=== PATIENT | female | born 1965 | race Caucasian/White ===

== ENCOUNTER 2023-06-01 14:05 | Outpatient (OUT) | payer OTHER, SELFPAY ==
--- NOTE | 2023-06-01 14:13 | MM_ITS ---
Patient: TRENT BO Exam Date: 06/01/2023 : 1965 Gender:F Ordering : DR CHELO PRECIADO M.D. Admission #: [id number] Family : Order #: [id number] CLICK HERE TO VIEW EXAM RADIOLOGY REPORT PROCEDURE: MM TOMOSYNTHESIS SCREENING BI COMPARISON: MG MAMM DX 3D RT CAD, 12/09/2020. MG MAMM SCREEN 3D ANNA CAD, 05/31/2022. INDICATIONS: Screening Calculator Name NCI Breast Cancer Risk Assessment Tool 5 Year Breast Cancer Risk 1.50% Lifetime Breast Cancer Risk 8.50% Personal Breast Cancer No Personal Ovarian Cancer No Treatments None Family Cancers Grandmother-maternal with leukemia cancer at age ~80. LOCATION: [facility] BREAST COMPOSITION: Heterogeneously dense,which may obscure small masses. FINDINGS: DIAGNOSTIC CATEGORY 2--BENIGN FINDING. NO CHANGE FROM COMPARISON. Scattered benign-appearing nodules are present. Scattered benign-appearing calcifications are present. RIGHT BREAST: No significant suspicious finding. LEFT BREAST: No significant suspicious finding. RECOMMENDATIONS: ROUTINE MAMMOGRAM AND CLINICAL EVALUATION IN 12 MONTHS. PLEASE NOTE: A NORMAL MAMMOGRAM DOES NOT EXCLUDE THE POSSIBILITY OF BREAST CANCER. A CLINICALLY SUSPICIOUS PALPABLE LUMP SHOULD BE BIOPSIED. Dictated by: Aguila Perez MD on 06/02/2023 at 08:04 Approved by: Aguila Perez MD on 06/02/2023 at 08:06
== END 2023-06-01 14:06 | disposition home or self-care (01) ==
PROVIDERS: PCP Family Medicine; Visit Provider Family Medicine
DX: Z12.31 Encounter for screening mammogram for malignant neoplasm of breast (principal); Z80.6 Family history of leukemia
CPT/HCPCS: 77063; 77067

== ENCOUNTER 2023-10-23 15:21 | Outpatient (OUT) | payer OTHER, SELFPAY ==
--- NOTE | 2023-10-23 | ECG_ITS ---
[facility] Test Date: 2023-10-23 Pat Name: TRENT BO Department: Room: - Gender: Female [employer] Person: : 1965 Requested By: CHELO PRECIADO Order Number: [id number] Reading MD: MIRYAM GUTHRIE Measurements Intervals [place] Rate: 51 P: 64 MO: 181 QRS: 65 QRSD: 95 T: 50 QT: 424 QTc: 391 Interpretive Statements SINUS BRADYCARDIA No previous ECG available for comparison Electronically Signed On 10-24-2023 6:41:12 EDT by MIRYAM GUTHRIE
[2023-10-23 16:42] LABS: Anion Gap 10.2; BUN Creatinine Ratio 21.2; Calcium 9.4 mg/dL (8.5-10.1); Carbon Dioxide 29.6 mmol/L (21.0-32.0); Chloride 106 mmol/L (98-107); Estimated GFR (African America >60 (>=60); Estimated GFR (Non-African Ame >60 (>=60); Glucose 81 mg/dL (74-106); Potassium 3.8 mmol/L (3.5-5.1); Sodium 142 mmol/L (136-145); Troponin I High Sensitivity <4.0 pg/mL (4.0-51.3)
== END 2023-10-23 15:22 | disposition home or self-care (01) ==
LOC: CARD 15:24
PROVIDERS: PCP Family Medicine; Visit Provider Family Medicine
DX: R10.13 Epigastric pain (principal); I10 Essential (primary) hypertension
CPT/HCPCS: 36415; 80048; 84484; 93005

== ENCOUNTER 2024-01-25 05:48 | Observation (INO) | payer OTHER, SELFPAY ==
[2024-01-25] VITALS (13 sets, daily range): BP systolic 110–152; BP diastolic 67–90; PULSE 51–73; TEMP 36.3–36.9; O2SAT 90–100; BMI 34.9; BMI 34.5
--- NOTE | 2024-01-25 | OP_ITS ---
OPERATION DATE: 01/25/2024 PREOPERATIVE DIAGNOSIS: 1. Left ureteral calculus with hydronephrosis. 2. UTI. POSTOPERATIVE DIAGNOSIS: 1. Left ureteral calculus with hydronephrosis. 2. UTI. PROCEDURE: 1. Cystoscopy. 2. Left retrograde pyelogram. 3. Left ureteroscopy with holmium laser ablation left distal ureteral calculus. 4. Ureteroscopic stone basket extraction. 5. Placement left double J stent under fluoroscopic guidance. SURGEON: Jan Alonzo M.D. COMPLICATIONS: None. ANESTHESIA: Dr. Spicer with a general LMA. INDICATIONS: Mrs. King is a 58-year-old female with a positive prior history of kidney stones, who presents with a left distal ureteral stone measuring about 7 mm, causing hydronephrosis, associated with a UTI. Recommendation made for operative intervention secondary to the combination of UTI and obstruction, as well as the stone size. She has been trying to pass this stone probably for the last week or so, based on symptomatology. She already received intravenous antibiotics in the ER. She understands the risks, benefits and details of this procedure, including the risk of bleeding, infection, need for additional procedural intervention, stent pain an irritation, heart and lung problems under anesthesia. Despite these risks, she wishes to proceed. she did have sequential compression devices in place and functional to the bilateral lower extremities throughout the case. PROCEDURE: The patient was brought back to the operating room and a time out was performed. All were in agreement with the operative plan, and she was identified appropriately. After the successful induction of general anesthesia by Dr. Spicer, she was placed in the modified dorsolithotomy position, prepped in the usual fashion with Betadine solution and draped appropriately. 2% Xylocaine jelly was placed per urethra and a well lubricated 22-Kiswahili cystourethroscope with 30 degree lens was then passed into the bladder. Choudhury endoscopy revealed no tumors, no stones, no diverticula. She does have a moderate cystocele. The orifices are normal and orthotopic. Left retrograde pyelogram was subsequently performed, utilizing a 6-Kiswahili open ended ureteral catheter, and this reveals a filling defect overlying the sacral aspect of the ureter. No obvious renal calculi identified. Left retrograde pyelogram demonstrates some dilatation of the collecting system. I did not push this with any pressure, so as not to push any infected urine proximally. Once the stone was identified, I decided to proceed immediately with ureteroscopy. This was accomplished, and a 0.25 Guidewire was passed up beyond the stone and into the kidney. Scope was removed and then replaced back up the ureter with the safety wire left in place. The stone was subsequently encountered and felt to be simply too large to simply engage. Holmium laser was subsequently utilized, with the 200 micron fiber at up to 10 torres. The stone was ablated into multiple pieces, each of which was basketed free and eventually sent to pathologist for evaluation. Ureteroscopy was carried up to the mid ureter. Due to the impacted stone site and the possible associated UTI, I felt that an indwelling stent was indicated. The safety wire was left in place. The ureteroscope was removed, and the cystoscope was backloaded over the wire. A 4.9-Kiswahili Dornier double J ureteral stent was then passed into the kidney. Wire removed and there was good curl of the stent within the kidney and the urinary bladder. Bladder empties, scope removed and the procedure was terminated. She tolerates it well and she is transferred to PACU in satisfactory condition, stable vital signs. Plan will be for transfer to the floor for postoperative management. Hopefully, she can be discharged home later this evening or tomorrow, with oral antibiotic coverage. The indwelling stent can be removed within the next 2-3 weeks or so. Discussed all this with her post-op, and he is in agreement with the plan. LASHAUN
--- OUTSIDE RECORDS SUMMARY | 2024-01-25 06:05 | XMS_ITS | CCD ---
Author Organization [facility] Care Team Providers Care Director Facilities Maintenance Name Role Phone HAMLET, DR ANAHI Reich Admitting Unavailable WEST, DR ANAHI Reich Attending Unavailable BALL, DR WITT Primary Care Unavailable WEST, DR ANAHI Reich Consulting Unavailable WEST, DR ANAHI Reich Admmagali Unavailable WEST, DR ANAHI Reich Attending Unavailable BALL, DR WITT Primary Care Unavailable WEST, DR ANAHI Reich Consulting Unavailable WEST, DR ANAHI Reich Admmagali Unavailable WEST, DR ANAHI Reich Attending Unavailable BALL, DR WITT Primary Care Unavailable WEST, DR ANAHI Reich Admmagali Unavailable WEST, DR ANAHI Reich Attending Unavailable BALL, DR WITT Primary Care Unavailable WEST, DR ANAHI Reich Consulting Unavailable WEST, DR ANAHI Reich Admitting Unavailable WEST, DR ANAHI Reich Attending Unavailable BALL, DR WITT Primary Care Unavailable WEST, DR ANAHI Reich Consulting Unavailable WEST, DR ANAHI Reich Admmagali Unavailable WEST, DR ANAHI Reich Attending Unavailable BALL, DR WITT Primary Care Unavailable WEST, DR ANAHI Reich Consulting Unavailable ZIEBJAKE, DR JAYY Santos Consulting Unavailable BAKER, DR AYSE Esposito Admitting Unavailable BAKER, DR AYSE Esposito Attending Unavailable BALL, DR WITT Primary Care Unavailable WEST, DR ANAHI Reich Consulting Unavailable BAKER, DR AYSE Esposito Consulting Unavailable WEST, DR ANAHI Reich Admmagali Unavailable WEST, DR ANAHI Reich Attending Unavailable BALL, DR WITT Primary Care Unavailable WEST, DR ANAHI Reich Admitting Unavailable WEST, DR ANAHI Reich Attending Unavailable BALL, DR WITT Primary Care Unavailable WEST, DR ANAHI Reich Admitting Unavailable WEST, DR ANAHI Reich Attending Unavailable BALL, DR WITT Primary Care Unavailable WEST, DR ANAHI Reich Admitting Unavailable WEST, DR ANAHI Reich Attending Unavailable BALL, DR WITT Primary Care Unavailable WEST, DR ANAHI Reich Consulting Unavailable ZIEBJAKE, DR JAYY Santos Consulting Unavailable WEST, DR ANAHI Reich Admmagali Unavailable WEST, DR ANAHI Reich Attending Unavailable BALL, DR WITT Primary Care Unavailable WEST, DR ANAHI Reich Consulting Unavailable WEST, DR ANAHI Reich Admitting Unavailable WEST, DR ANAHI Reich Attending Unavailable BALL, DR WITT Primary Care Unavailable WEST, DR ANAHI Reich Consulting Unavailable WEST, DR ANAHI Reich Admitting Unavailable WEST, DR ANAHI Reich Attending Unavailable BALL, DR WITT Primary Care Unavailable WEST, DR ANAHI Reich Consulting Unavailable WEST, DR ANAHI Reich Admitting Unavailable WEST, DR ANAHI Reich Attending Unavailable BALL, DR WITT Primary Care Unavailable WEST, DR ANAHI Reich Consulting Unavailable ZIEBER, DR JAYY Santos Consulting Unavailable WEST, DR ANAHI Reich Admitting Unavailable WEST, DR ANAHI Reich Attending Unavailable BALL, DR WITT Primary Care Unavailable WEST, DR ANAHI Reich Consulting Unavailable BAKER, DR AYSE Esposito Admitting Unavailable BAKER, DR AYSE Esposito Attending Unavailable BALL, DR WITT Primary Care Unavailable ZIEBER, DR JAYY Santos Consulting Unavailable BAKER, DR AYSE Esposito Consulting Unavailable WEST, DR ANAHI Reich Admitting Unavailable WEST, DR ANAHI Reich Attending Unavailable BALL, DR WITT Primary Care Unavailable WEST, DR ANAHI Reich Consulting Unavailable BALL, DR WITT Admitting Unavailable BALL, DR WITT Attending Unavailable BALL, DR WITT Primary Care Unavailable BALL, DR WITT Consulting Unavailable ZIEBER, DR JAYY Santos Consulting Unavailable WEST, DR ANAHI Reich Admitting Unavailable WEST, DR ANAHI Reich Attending Unavailable BALL, DR WITT Primary Care Unavailable WEST, DR ANAHI Reich Consulting Unavailable ZIEBER, DR JAYY Santos Consulting Unavailable WEST, DR ANAHI Reich Admmagali Unavailable WEST, DR ANAHI Reich Attending Unavailable BALL, DR WITT Primary Care Unavailable WEST, DR ANAHI Reich Consulting Unavailable BakerAyse Attending Unavailable Baker, Ayse Esposito Primary Care Unavailable Baker, Ayse Esposito Admitting Unavailable MD Ayse Baker Primary Care Provider MD Ayse Baker Attending Provider [phone] Allergies Allergy Classification Reported Allergen(s) Allergy Type Date of Onset Reaction(s) Facility (2 sources) Sulfamethoxazole / Trimethoprim Drug Allergy [facility] Repository (2 sources) Sulfamethoxazole Drug Allergy [address] [place] [address] Repository (2 sources) Sulfonamides (Antibiotic) Drug allergy (disorder) [address] [place] [address] Repository (2 sources) Trimethoprim Drug Allergy [address] [place] [address] Repository Medications Current Medications Medication Drug Class(es) Dates Sig (Normalized) Sig (Original) fluticasone furoate 0.0275 mg/actuat metered dose nasal spray (1 source) Corticosteroid Start: 10-18-2023 take 2 spray(s) nasal route once daily, then take 1 spray(s) nasal route once daily Fluticasone Furoate (Flonase Sensimist) 27.5 mcg/actuation spray,suspension Active 2 SPRAY INTRANASAL Daily October 18, 2023 1:00am [employer] sprays (1 spray in each nostril) Nasally Once a day; Note: Source Status: Start; Refills: 1; Provider: Samuel Esposito losartan potassium 50 mg oral tablet (3 sources) Angiotensin 2 Receptor Jose Start: 11-16-2023 take 50 mg by mouth once daily Losartan Active 50 MG PO daily November 16, 2023 12:00am Start: 10-23-2023 End: 11-16-2023 take 25 mg by mouth once daily Losartan Discontinued 2 5 MG PO Daily November 14, 2023 7:40pm November 16, 2023 3:11pm Problems Active Problems Problem Classification Problem Date Documented Da te Episodic/Chronic Abdominal pain (3 sources) Epigastric pain; Translations: [Epigastric pain] Onset: 4 10-23-2023 Episodic Essential hypertension (3 sources) Essential (primary) hypertension; Translations: [Hypertensive disorder] Onset: 4 10-30-2023 Chronic Other screening for suspected conditions (not mental disorders or infectious disease) (4 sources) Encounter for screening mammogram for malignant neoplasm of breast; Translations: [ENC SCR MAMMO MALIG NEOPLASM BREAST] Onset: 2 Episodic Phlebitis; thrombophlebitis and thromboembolism (13 sources) Phlebitis and thrombophlebitis of superficial vessels of right lower extremity; Translations: [Phlebitis and thrombophlebitis of superficial vessels of left lower extremity] Onset: 2 Episodic Residual codes; unclassified (1 source) Family history of leukemia; Translations: [FAMILY HISTORY OF LEUKEMIA] Onset: 2 Episodic Varicose veins of lower extremity (4 sources) Varicose veins of bilateral lower extremities with pain; Translations: [VARICOSE VNS ANNA LOW EXTREM W/PAIN] Onset: 2 Episodic Past or Other Problems Problem Classification Problem Date Documented Da te Episodic/Chronic Other connective tissue disease (4 sources) Other specified soft tissue disorders; Translations: [OTHER SPEC SOFT TISSUE DISORDERS] Onset: 12-13-2021 Episodic Results Test Name Value Interpretation Reference Range Facility Estimated glomerular filtrat ion rate (GFR) non- Americanon 10-23-2023 GFR/1.73 sq M.predicted among non-blacks MDRD (S/P/Bld) [Vol rate/Area] mL/min/{1.73_m2} >=60 [facility] Laboratory - Chemistry and C hemistry - challengeon 10-23-2023 Calcium [Mass/Vol] 9.4 mg/dL 8.5-10.1 [facility] Chloride [Moles/Vol] 106 mmol/L 98-[address] [facility] CO2 [Moles/Vol] 29.6 mmol/L 21.0-32.0 [facility] Creatinine [Mass/Vol] 0.80 mg/dL 0.55-1.02 [facility] GFR/1.73 sq M.predicted MDRD (S/P/Bld) [Vol rate/Area] mL/min/{1.73_m2} >=60 [facility] Glucose [Mass/Vol] 81 mg/dL 74-106 [facility] Potassium [Moles/Vol] 3.8 mmol/L 3.5-5.1 [facility] Sodium [Moles/Vol] 142 mmol/L 136-145 [facility] Urea nitrogen [Mass/Vol] 17.0 mg/dL 7.0-18.0 [facility] Urea nitrogen/Creatinine [Mass ratio] 21.2 mg/mg [facility] No Panel Informationon 10-22 Troponin I High Sensitivity <4.0 pg/mL 4.0-51.3 [facility] Comment on above: CUT-OFF POINTS HAVE BEEN ESTABLISHED BASED ON THE FOURTHUNIVERSAL DEFINITION OF MYOCARDIAL INFARCTION. THE UPPERREFERENCE LIMIT (URL) OF TROPONIN, DEFINED THE 99THPERCENTILE OF cTnI DISTRIBUTION IN A REFERENCE POPULATION,HAS BEEN CONFIRMED THE DECISION THRESHOLD FOR MIDIAGNOSIS.99TH PERCENTILE = 51.4 PG/MLNOTE: HIGH-SENSITIVITY TROPONIN ASSAY IS NOT INTENDED TO BEUSED IN ISOLATION BUT SHOULD BE INTERPRETED IN CONJUNCTIONWITH OTHER DIAGNOSTIC AND CLINICAL INFORMATION. Serum or plasma anion gap de terminationon 10-23-2023 Anion gap [Moles/Vol] 10.2 mmol/L [facility] MG MAMM SCREEN 3D ANNA CADon 05-31-2022 MG MAMM SCREEN 3D ANNA CAD Patient: LIZ BO. Exam Date: 05/31/2022 : 1965 Gender:F Ordering : DR MIRYAM GUTHRIE D.O. Admission #: [id number] Family : Order #: [id number] CLICK HERE TO VIEW EXAM RADIOLOGY REPORT PROCEDURE: MAMMOGRAM SCREENING 3D BILATERAL CAD COMPARISON: MG MAMM DX 3D RT CAD, 12/09/2020. MG MAMM SCREEN 3D ANNA CAD, 11/23/2020. INDICATIONS: Screening mammography Calculator Name NCI Breast Cancer Risk Assessment Tool 5 Year Breast Cancer Risk 1.40% Lifetime Breast Cancer Risk 8.70% Personal Breast Cancer No Personal Ovarian Cancer No Treatments None Family Cancers Grandmother-maternal with leukemia cancer at age 80. LOCATION: [facility] BREAST COMPOSITION: Heterogeneously dense,which may obscure small masses. FINDINGS: DIAGNOSTIC CATEGORY 2--BENIGN FINDING: RIGHT BREAST: No significant suspicious finding. No significant change has occurred. LEFT BREAST: No significant suspicious finding. Scattered benign-appearing calcifications are present. No significant change has occurred. RECOMMENDATIONS: ROUTINE MAMMOGRAM AND CLINICAL EVALUATION IN 12 MONTHS. PLEASE NOTE: A NORMAL MAMMOGRAM DOES NOT EXCLUDE THE POSSIBILITY OF BREAST CANCER. A CLINICALLY SUSPICIOUS PALPABLE LUMP SHOULD BE BIOPSIED. Dictated by: aJyy Bell M.D. on 05/31/2022 at 15:57 Approved by: Jayy Bell M.D. on 05/31/2022 at 16:00 Normal [facility] VC INJ SCL ROBERT ASSISTANT FOOD SERVICE MANAGER VEINSon 1 VC INJ SCL ROBERT ASSISTANT FOOD SERVICE MANAGER VEINS Patient: LIZ BO Exam Date: 05/23/2022 : 1965 Gender:F Ordering : DR ANAHI MCNULTY M.D. Admission #: [id number] Family : Order #: [id number] CLICK HERE TO VIEW EXAM RADIOLOGY REPORT PROCEDURE: VEIN CENTER INJECTION SCLEROSING SOLUTION MULTIPLE VEINS SAME COMPARISON: VC INJ SCL ROBERT ASSISTANT FOOD SERVICE MANAGER VEINS, 05/18/2022. INDICATIONS: Pain co-occurrent and due to varicose veins of bilateral legs I83.813 PROCEDURE NOTE: The risks and benefits of the procedure were explained at length to the patient and informed written consent was obtained. Elpidio Nesbitt was present and assisted. The procedure was performed under sterile technique. The patient's leg was wrapped with Coban and postprocedural verbal and written instructions provided. SCLEROSANT: 4 cc, 0.5% polidocanol VEIN(S) INJECTED: 18 veins in the right leg VISUALIZATION: Ultrasound was not used to visualize the sclerosant ANESTHESIA Supercooled air COMPLICATIONS: None CONCLUSION: 1. Technically successful sclerotherapy as described Dictated by: Anahi Mcnulty MD on 05/23/2022 at 13:35 Approved by: Anahi Mcnulty MD on 05/23/2022 at 13:35 Normal [facility] VC INJ SCL ROBERT ASSISTANT FOOD SERVICE MANAGER VEINSon 1 VC INJ SCL ROBERT ASSISTANT FOOD SERVICE MANAGER VEINS Patient: LIZ BO Exam Date: 05/18/2022 : 1965 Gender:F Ordering : DR ANAHI MCNULTY M.D. Admission #: [id number] Family : Order #: [id number] CLICK HERE TO VIEW EXAM RADIOLOGY REPORT PROCEDURE: VEIN CENTER INJECTION SCLEROSING SOLUTION MULTIPLE VEINS SAME COMPARISON: None. INDICATIONS: Pain co-occurrent and due to varicose veins of bilateral legs I83.813 PROCEDURE NOTE: The risks and benefits of the procedure were explained at length to the patient and informed written consent was obtained. Elpidio Nesbitt was present and assisted. The procedure was performed under sterile technique. The patient's leg was wrapped with Coban and postprocedural verbal and written instructions provided. SCLEROSANT: 4 cc, 0.5% polidocanol VEIN(S) INJECTED: 18 veins in the left leg VISUALIZATION: Ultrasound was not used to visualize the sclerosant ANESTHESIA Supercooled air COMPLICATIONS: None CONCLUSION: 1. Technically successful sclerotherapy as described Dictated by: Anahi Mcnulty MD on 05/18/2022 at 13:10 Approved by: Anahi Mcnulty MD on 05/18/2022 at 13:11 Normal [facility] VC CONSULT FOLLOWUPon 2021 VC CONSULT FOLLOWUP Patient: SPENCER BO Exam Date: 05/13/2022 : 1965 Gender:F Ordering : DR ANAHI MCNULTY M.D. Admission #: [id number] Family : Order #: [id number] CLICK HERE TO VIEW EXAM RADIOLOGY REPORT PROCEDURE: VEIN CENTER CONSULTATION FOLLOWUP VEIN CENTER - OFFICE VISIT FOLLOW UP COMPARISON: VC CONSULT FOLLOWUP, 05/02/2022. VC CONSULT FOLLOWUP, 04/19/2022. PROGRESS NOTES: The patient reports some mild discomfort following micro foam chemical ablation of the right leg. Patient has compression stocking. The patient did not require oral analgesics. The patient has followed our recommendations to walk 20-30 minutes once or twice per day since the procedure. The patient reports marked improvement in bilateral lower extremity presenting symptoms . Physical exam demonstrates scattered areas of bruising and scattered thrombosed varicose veins. No significant varicose veins. Scattered reticular and spider veins in both legs are most significant below the knee. Review of the ultrasound performed the same day demonstrates occlusive thrombus extending throughout the treated vein, see separate report, consistent with a successful ablation. No thrombus extending into or beyond the saphenofemoral junction. The patient expressed a desire to proceed with treatment of bilateral reticular and spider veins with injection sclerotherapy. I discussed with the patient she likely would require 3-4 sessions.. IMPRESSION: 1. Successful ablation of right leg incompetent varicose veins 2. Persistent bilateral reticular and spider veins PLAN: Injection sclerotherapy Nurse notes, history and physical were reviewed and confirmed, see attached forms. The nurse was present throughout the physical exam and consultation Dictated by: Anahi Mcnulty MD on 05/13/2022 at 12:55 Approved by: Anahi Mcnulty MD on 05/13/2022 at 12:57 Normal [facility] VC EXT VENOUS RT LIMITEDon 0 05-13-2022 VC EXT VENOUS RT LIMITED Patient: LIZ BO Exam Date: 05/13/2022 : 1965 Gender:F Ordering : DR ANAHI MCNULTY M.D. Admission #: [id number] Family : Order #: [id number] CLICK HERE TO VIEW EXAM RADIOLOGY REPORT PROCEDURE: VEIN CENTER EXTREMITY VENOUS RIGHT LIMITED COMPARISON: VC EXT VENOUS RT LIMITED, 04/19/2022. VC EXT VENOUS RT LIMITED, 02/25/2022. INDICATIONS: Phlebitis of superficial veins of lower extremity I80.01 TECHNIQUE: Lower extremity sharp scale and Duplex Doppler evaluation of the deep venous system from the inguinal ligament through the calf veins. FINDINGS: REGION: Right lower extremity. THROMBI: Negative for DVT. Varithena induced thrombus visualized at all areas treated including mid/lat calf, dist/med calf, and dist/med thigh. COMPRESSIBILITY: Noncompressibility corresponding to thrombus FLOW: Absent flow corresponding to thrombus *Exam performed in accordance with [facility] practice guidelines- Peripheral venous ultrasound, November 07, 2009. CONCLUSION: Post ablation occlusion of the treated varicose veins. No significant residual incompetent varicose veins are observed Dictated by: Anahi Mcnulty MD on 05/13/2022 at 12:54 Approved by: Anahi Mcnulty MD on 05/13/2022 at 12:55 Normal [facility] VC INJ FOAM SCLERO W US MLTI on 05-09-2022 VC INJ FOAM SCLERO W US MLTI Patient: LIZ BO Exam Date: 05/09/2022 : 1965 Gender:F Ordering : DR ANAHI MCNULTY M.D. Admission #: [id number] Family : Order #: [id number] CLICK HERE TO VIEW EXAM RADIOLOGY REPORT PROCEDURE: VEIN CENTER INJECTION FOAM SCLEROSING SOLUTION WITH ULTRASOUND MULTIPLE VEINS COMPARISON: VC INJ FOAM SCLERO W US MLTI, 04/26/2022. Pre-operative Diagnosis: CEAP class C4 venous insufficiency with pain, tenderness, edema and incompetent right great saphenous vein and branch saphenous tributaries/varicose veins, chronic venous insufficiency right leg secondary to venous incompetence Post-operative Diagnosis: CEAP class C4 venous insufficiency with pain, tenderness, edema and incompetent right great saphenous vein and branch saphenous tributaries/varicose veins, chronic venous insufficiency right leg secondary to venous incompetence Procedure Performed: 1. Ultrasound-guided microfoam chemical ablation with Varithena(r) 2. Intraoperative ultrasound guidance Physician: Anahi Mcnulty M.D. Anesthesia: None Indications for Procedure: 57-year-old female who presents with a 30 year history of lower extremity pain swelling and varicose veins. The patient failed conservative medical therapy including medical compression stockings, exercise and analgesics. Prior procedures include intravenous laser ablation and micro foam chemical ablation Multiple incompetent varicosities of the right leg. Duplex scan showed reflux and enlarged diameters up to 4 mm. The patient underwent informed consent including management options where the complications of infection, bleeding, pain, and skin injury were discussed. Particular attention was spent discussing thrombus extension and deep vein thrombosis as well as the possibility of pulmonary embolus and treatment with oral or injectable blood thinners. Procedure: The patient walked to the procedure room. All applicable staff donned appropriate apparel. A procedure timeout was performed to confirm correct patient, correct extremity, correct procedure, and correct room set-up including presence of all applicable supplies, devices, and drugs. A duplex ultrasound, performed by myself confirmed the location and incompetence of right leg varicose veins and their course marked on the skin together with the dilated tributaries. The extent of treatment of the vein and the associated varicosities was determined through ultrasound mapping. The patient was placed on the operating room table. The limb was prepped. The skin was punctured with a butterfly needle through the skin with the venous access needle and advanced under ultrasound guidance. The target limb was positioned at 45 degrees of elevation in relation to the torso utilizing a foam pad. The Varithena(r) canister was previously activated and the canister was primed and purged as required in the instructions for use. 5 mL aliquot of Varithena(r) was drawn into a sterile syringe. Injection into a 4 mm varicose vein distal medial lower leg/ankle. 4 mL aliquot of Varithena(r) was drawn into a sterile syringe. Injection into a 4 mm varicose vein lateral mid calf 2 mL aliquot of Varithena(r) was drawn into a sterile syringe. Injection into a 3 mm varicose vein medial distal thigh Varithena(r) was slowly administered at 0.5-1.0 cc/second with close observation by ultrasound of its course in the injected veins. A total volume of 11 mL of Varithena(r) was used. During administration of Varithena(r), the patient was asked to dorsiflex the ankle to limit flow of Varithena(r) into perforating veins. Once appropriate spasm had been confirmed in the treated veins, the vascular catheter was removed from the leg and light pressure was applied over the puncture site for hemostasis The common femoral and deep superficial veins were then evaluated for flow and compressibility prior to dressing placement. The lower extremity was kept elevated at 45 degrees above the horizontal and cording material was applied over the saphenous segments and tributaries to allow for eccentric compression over the target vessels including the targeted saphenous vein(s). A multilayer dressing was applied consisting of foam pads, coban and thigh-high 20-30 mm Hg compression elastic support hose were placed on the patient. The leg was lowered only after compression had been applied and the patient was immediately ambulatory. The patient ambulated 10 minutes under supervision and was without apparent concerns at time of release Post-care instructions include advising patient to keep post-treatment bandages in place and dry for 48 hours, avoid extended periods of inactivity, avoid heavy exercise for one week, wear compression stockings on the treated leg continuously for two weeks, to walk daily for 10 minutes over the next month. The patient was instructed to take an anti-inflammatory medicine as needed and (more content not included)... Normal [facility] VC CONSULT FOLLOWUPon 2021 VC CONSULT FOLLOWUP Patient: SPENCER BO Exam Date: 05/02/2022 : 1965 Gender:F Ordering : DR ANAHI MCNULTY M.D. Admission #: [id number] Family : Order #: [id number] CLICK HERE TO VIEW EXAM RADIOLOGY REPORT PROCEDURE: VEIN CENTER CONSULTATION FOLLOWUP VEIN CENTER - OFFICE VISIT FOLLOW UP COMPARISON: VC CONSULT FOLLOWUP, 04/19/2022. PROGRESS NOTES: The patient reports that some persistent tenderness within right leg and occasional twinges posterior to the knee. No left leg complaints. There has been interval reduction in varicosities. The patient has followed our recommendations to walk 20-30 minutes once or twice per day since the procedure. Physical exam demonstrates decrease in varicosities and no evidence of infection. Persistent varicosities are identified along the right leg. Review of the ultrasound performed the same day demonstrates occlusive thrombus extending throughout the treated vein, see separate report, consistent with a successful ablation. No thrombus extending into or beyond the saphenofemoral junction. The patient expressed a desire to proceed with treatment of remaining varicosities of right leg. The patient was informed that treatment was a process and would require approximately 1, possibly 2 more treatments with Varithena followed by sclerotherapy. IMPRESSION: 1. Successful ablation of the treated branch saphenous veins. 2. Persistent incompetent varicose veins and right leg symptoms PLAN: 1. Microfoam chemical ablation of right lower extremity remaining branch saphenous varicosities. 2. Sclerotherapy. Nurse notes, history and physical were reviewed and confirmed, see attached forms. The nurse was present throughout the physical exam and consultation Dictated by: Jayy Bell M.D. on 05/02/2022 at 13:07 Approved by: Jayy Bell M.D. on 05/02/2022 at 13:15 Normal [facility] VC EXT VENOUS LT LIMITEDon 0 05-02-2022 VC EXT VENOUS LT LIMITED Patient: LIZ BO Exam Date: 05/02/2022 : 1965 Gender:F Ordering : DR ANAHI MCNULTY M.D. Admission #: [id number] Family : Order #: [id number] CLICK HERE TO VIEW EXAM RADIOLOGY REPORT PROCEDURE: VEIN CENTER EXTREMITY VENOUS LEFT LIMITED COMPARISON: VC EXT VENOUS LT LIMITED, 03/29/2022. INDICATIONS: Phlebitis of superficial veins of lower extremity I80.02 TECHNIQUE: Lower extremity sharp scale and Duplex Doppler evaluation of the deep venous system from the inguinal ligament through the calf veins. FINDINGS: REGION: Left lower extremity. THROMBI: Negative for DVT. Varithena induced thrombus visualized in all areas treated including dist/med calf and prox/med calf extending into dist/med thigh. COMPRESSIBILITY: Non-compressible segments. FLOW: Areas of no flow. OTHER: CONCLUSION: 1. Successful post ablation occlusion of treated branch saphenous varicosities within the left leg. Dictated by: Jayy Bell M.D. on 05/02/2022 at 13:07 Approved by: Jayy Bell M.D. on 05/02/2022 at 13:07 Normal [facility] VC INJ FOAM SCLERO W US MLTI on 04-26-2022 VC INJ FOAM SCLERO W US MLTI Patient: LIZ BO Exam Date: 04/26/2022 : 1965 Gender:F Ordering : DR ANAHI MCNULTY M.D. Admission #: [id number] Family : Order #: [id number] CLICK HERE TO VIEW EXAM RADIOLOGY REPORT PROCEDURE: VEIN CENTER INJECTION FOAM SCLEROSING SOLUTION WITH ULTRASOUND MULTIPLE VEINS COMPARISON: None. Pre-operative Diagnosis: CEAP class C4 venous insufficiency with pain, tenderness, edema and incompetent great and anterior accessory saphenous veins and associated incompetent tributary/varicose veins, chronic venous insufficiency left leg secondary to venous incompetence Post-operative Diagnosis: CEAP class C4 venous insufficiency with pain, tenderness, edema and incompetent great and anterior accessory saphenous veins and associated incompetent tributary/varicose veins, chronic venous insufficiency left leg secondary to venous incompetence Procedure Performed: 1. Ultrasound-guided microfoam chemical ablation with Varithena(r) 2. Intraoperative ultrasound guidance Physician: Anahi Mcnulty M.D. Anesthesia: None Indications for Procedure: 57-year-old female presents a 30 year history of lower extremity pain swelling and varicose veins. The patient failed conservative medical therapy including medical compression stockings, exercise and analgesics. Prior procedures include intravenous laser ablation. 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 Duplex scan showed reflux and enlarged diameters up to 8 mm. The patient underwent informed consent including management options where the complications of infection, bleeding, pain, and skin injury were discussed. Particular attention was spent discussing thrombus extension and deep vein thrombosis as well as the possibility of pulmonary embolus and treatment with oral or injectable blood thinners. Procedure: The patient walked to the procedure room. All applicable staff donned appropriate apparel. A procedure timeout was performed to confirm correct patient, correct extremity, correct procedure, and correct room set-up including presence of all applicable supplies, devices, and drugs. A duplex ultrasound, performed by myself confirmed the location and incompetence of left leg varicose veins and their course marked on the skin together with the dilated tributaries. The extent of treatment of the vein and the associated varicosities was determined through ultrasound mapping. The patient was placed on the operating room table. The limb was prepped. The skin was punctured with a butterfly needle through the skin with the venous access needle and advanced under ultrasound guidance. The target limb was positioned at 45 degrees of elevation in relation to the torso utilizing a foam pad. The Varithena(r) canister was previously activated and the canister was primed and purged as required in the instructions for use. The following injections were made: 8 mL aliquot of Varithena(r) was drawn into a sterile syringe. Injection into a 5 mm varicose vein distal medial lower leg. Compression was used to occlude a perforating vein which was adjacent. 4 mL aliquot of Varithena(r) was drawn into a sterile syringe. Injection into an 8 mm varicose vein medial proximal lower leg Varithena(r) was slowly administered at 0.5-1.0 cc/second with close observation by ultrasound of its course in the injected veins. A total volume of 12 mL of Varithena(r) was used. During administration of Varithena(r), the patient was asked to dorsiflex the ankle to limit flow of Varithena(r) into perforating veins. Once appropriate spasm had been confirmed in the treated veins, the vascular catheter was removed from the leg and light pressure was applied over the puncture site for hemostasis The common femoral and deep superficial veins were then evaluated for flow and compressibility prior to dressing placement. The lower extremity was kept elevated at 45 degrees above the horizontal and cording material was applied over the saphenous segments and tributaries to allow for eccentric compression over the target vessels including the targeted saphenous vein(s). A multilayer dressing was applied consisting of foam pads, coban and thigh-high 20-30 mm Hg compression elastic support hose were placed on the patient. The leg was lowered only after compression had been applied and the patient was immediately ambulatory. The patient ambulated 10 minutes under supervision and was without apparent concerns at time of release Post-care instructions include advising patient to keep post-treatment bandages in place and dry for 48 hours, avoid extended periods of inactivity, avoid heavy exercise for one week, wear compression stockings on the treated leg continuously for two weeks, to walk daily for 10 minutes over the next month. The patient was instructed to take an anti-inflammatory medicine as needed and to follow up for color duplex scan of the GSV, (more content not included)... Normal [facility] VC CONSULT FOLLOWUPon 2021 VC CONSULT FOLLOWUP Patient: SPENCER BO Exam Date: 04/19/2022 : 1965 Gender:F Ordering : DR ANAHI MCNULTY M.D. Admission #: [id number] Family : Order #: [id number] CLICK HERE TO VIEW EXAM RADIOLOGY REPORT PROCEDURE: VEIN CENTER CONSULTATION FOLLOWUP VEIN CENTER - OFFICE VISIT FOLLOW UP COMPARISON: VC CONSULT FOLLOWUP, 03/29/2022. VC CONSULT FOLLOWUP, 02/25/2022. PROGRESS NOTES: The patient reports mild discomfort of the right leg following intravenous laser ablation of the great saphenous vein. The patient did not require oral analgesics. The patient did wear her compression stocking as directed. The patient has followed our recommendations to walk 20-30 minutes once or twice per day since the procedure. Physical exam demonstrates no areas of bruising. The great saphenous vein cannot be definitively palpated. No areas of erythema or warmth to suggest cellulitis or thrombophlebitis. No active ulceration Review of the ultrasound performed the same day demonstrates occlusive thrombus extending throughout the treated right great saphenous vein with heat induced thrombus 0.7 cm from the saphenofemoral junction. The patient expressed a desire to proceed with treatment of incompetent bilateral branch saphenous tributary/varicose veins with micro foam chemical ablation. IMPRESSION: 1. Successful ablation of the right great saphenous vein 2. 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 The nurse was present throughout the physical exam and consultation Dictated by: Anahi Mcnulty MD on 04/19/2022 at 13:55 Approved by: Anahi Mcnulty MD on 04/19/2022 at 13:56 Normal [facility] VC EXT VENOUS RT LIMITEDon 0 04-19-2022 VC EXT VENOUS RT LIMITED Patient: LIZ BO Exam Date: 04/19/2022 : 1965 Gender:F Ordering : DR ANAHI MCNULTY M.D. Admission #: [id number] Family : Order #: [id number] CLICK HERE TO VIEW EXAM RADIOLOGY REPORT PROCEDURE: VEIN CENTER EXTREMITY VENOUS RIGHT LIMITED COMPARISON: VC EXT VENOUS RT LIMITED, 02/25/2022. VC EXT VENOUS RT LIMITED, 02/07/2022. INDICATIONS: Phlebitis of superficial veins of lower extremity I80.01 TECHNIQUE: Lower extremity sharp scale and Duplex Doppler evaluation of the deep venous system from the inguinal ligament through the calf veins. FINDINGS: REGION: Right lower extremity. THROMBI: Negative for DVT. Heat induced thrombus visualized arising 0.7cm from SFJ. The heat induced thrombus extends from groin to distal thigh and is patent at proximal calf below the area of insert. COMPRESSIBILITY: Noncompressibility corresponding to thrombus FLOW: Absent flow corresponding to thrombus *Exam performed in accordance with [facility] practice guidelines- Peripheral venous ultrasound, November 07, 2009. CONCLUSION: Post ablation occlusion of the right great saphenous vein with heat induced thrombus 0.7 cm from the saphenofemoral junction Dictated by: Anahi Mcnulty MD on 04/19/2022 at 13:23 Approved by: Anahi Mcnulty MD on 04/19/2022 at 13:24 Normal [facility] VC ENDOVENOUS ABL 1ST V RTon 04-12-2022 VC ENDOVENOUS ABL 1ST V RT Patient: LIZ BO Exam Date: 04/12/2022 : 1965 Gender:F Ordering : DR ANAHI MCNULTY M.D. Admission #: [id number] Family : Order #: [id number] CLICK HERE TO VIEW EXAM RADIOLOGY REPORT PROCEDURE: VEIN CENTER ENDOVENOUS ABLATION FIRST VEIN RIGHT GREAT SAPHENOUS VEIN COMPARISON: VC ENDOVENOUS ABL 1ST V RT, 01/25/2022. INDICATIONS: Pain co-occurrent and due to varicose veins of bilateral legs I83.813 OPERATIVE REPORT: The risks and benefits of the procedure had been previously discussed, and were rediscussed at length. Informed written consent was obtained by and Elpidio Nesbitt assisted. Time out procedure was performed. The right lower extremity was prepared and draped in the usual sterile fashion to allow knee flexion in the sterile field. Duplex ultrasound probe was draped in a sterile cover, sterile transmission gel was used. Venous mapping was performed with the areas of dilation and large tributaries marked. The total length was 27 cm from the entry upper calf to upper thigh. The wire could be advanced to the saphenofemoral junction however the catheter cannot be advanced due to an area of stenosis with significant pain, therefore it was decided to ablate the accessed portion due to venous spasm. The diameter of the greater saphenous vein ranged from 4-7 mm. A 30 gauge needle and 1% buffered lidocaine was used to anesthetize the entry site. A 4 mm incision was made with a scalpel and the saphenous vein was entered percutaneously under direct ultrasound guidance with a micropuncture set, a single stick was successful in gaining access. A micro-guide wire was inserted and the needle removed. A micro-set including a dilator was inserted over the microwire and the needle and dilator were removed. A 0.018 guide wire was inserted through the micro-set and threaded through the saphenous vein to the saphenofemoral junction. The dilator was removed and an introducer sheath was inserted over the wire. The dilator and wire were removed and the 600 micron fiber was introduced and placed and positioned so that it extended beyond the sheath. Final position of the fiber was determined by ultrasound guidance and duplex imaging. Tumescent anesthetic was delivered by ultrasound guidance. 175 cc of fluid was delivered along the entire course of the saphenous vein. The solution consisted of 500 cc of normal saline with 20mL of 1% lidocaine and 10 mL of sodium bicarbonate. A final positioning check was made. The energy source was turned on by means of the foot pedal and the fiber and sheath were withdrawn. The total number of Joules delivered was 98780. The laser was active for 146 seconds under continuous pulse, average laser use of 8 J. Laser start time 1:18 p.m. April 12, 2022. Laser stop time 1:24 p.m. April 12, 2022. A duplex ultrasound revealed compressibility and flow at the saphenofemoral junction immediately after the procedure. Hemostasis at the access site was achieved. The skin incision of the saphenous vein was closed with a 4 x 4. A compression stocking was applied. Postop instructions were given. A follow up appointment was recommended and scheduled. The patient tolerated the procedure well and was discharged in good condition. CONCLUSION: 1. Technically successful endovenous laser ablation of the right great saphenous vein. Dictated by: Anahi Mcnulty MD on 04/12/2022 at 13:26 Approved by: Anahi Mcnulty MD on 04/12/2022 at 13:30 Normal [facility] VC CONSULT FOLLOWUPon 2021 VC CONSULT FOLLOWUP Patient: SPENCER BO. Exam Date: 03/29/2022 : 1965 Gender:F Ordering : DR ANAHI MCNULTY M.D. Admission #: [id number] Family : Order #: [id number] CLICK HERE TO VIEW EXAM RADIOLOGY REPORT PROCEDURE: VEIN CENTER CONSULTATION FOLLOWUP VEIN CENTER - OFFICE VISIT FOLLOW UP COMPARISON: VC CONSULT FOLLOWUP, 02/25/2022. PROGRESS NOTES: The patient reports improvement in leg symptoms. There has been interval reduction in varicosities. The patient has followed our recommendations to walk 20-30 minutes once or twice per day since the procedure. Physical exam demonstrates decrease in visible varicosities of the left and right leg. Persistent varicosities are identified along the legs bilaterally. Review of the ultrasound performed the same day demonstrates occlusive thrombus extending throughout the treated vein, see separate report, consistent with a successful ablation. No thrombus extending into or beyond the saphenofemoral junction. The patient expressed a desire to proceed with treatment of right great saphenous vein followed by incompetent branch saphenous varicosities. The patient was informed that treatment was a process and would require several procedures/sessions. IMPRESSION: 1. Successful ablation of the left great saphenous vein 2. Persistent incompetent veins and bilateral lower extremity symptoms PLAN: Endovenous laser ablation of right great saphenous vein followed by bilateral microfoam chemical ablation of incompetent branch saphenous varicosities. Nurse notes, history and physical were reviewed and confirmed, see attached forms. The nurse was present throughout the physical exam and consultation Dictated by: Jayy Bell M.D. on 03/29/2022 at 14:03 Approved by: Jayy Bell M.D. on 03/29/2022 at 14:07 Normal [facility] VC EXT VENOUS LT LIMITEDon 0 03-29-2022 VC EXT VENOUS LT LIMITED Patient: LIZ BO Exam Date: 03/29/2022 : 1965 Gender:F Ordering : DR ANAHI MCNULTY M.D. Admission #: [id number] Family : Order #: [id number] CLICK HERE TO VIEW EXAM RADIOLOGY REPORT PROCEDURE: VEIN CENTER EXTREMITY VENOUS LEFT LIMITED COMPARISON: None. INDICATIONS: Phlebitis and thrombophlebitis of superficial veins of right lower extremity I80.01 TECHNIQUE: Lower extremity sharp scale and Duplex Doppler evaluation of the deep venous system from the inguinal ligament through the calf veins. FINDINGS: REGION: Left lower extremity. THROMBI: Negative for DVT. Heat induced thrombus visualized arising 1.8 cm from SFJ. The heat induced thrombus extends from groin to mid thigh. Heat induced thrombus is also visualized in a varicosity. COMPRESSIBILITY: Non-compressible segments. FLOW: Areas of no flow. OTHER: CONCLUSION: 1. Successful post ablation occlusion of left great saphenous vein. Dictated by: Jayy Bell M.D. on 03/29/2022 at 13:34 Approved by: Jayy Bell M.D. on 03/29/2022 at 14:02 Normal [facility] VC ENDOVENOUS ABL 1ST V LTon 03-22-2022 VC ENDOVENOUS ABL 1ST V LT Patient: LIZ BO Exam Date: 03/22/2022 : 1965 Gender:F Ordering : DR ANAHI MCNULTY M.D. Admission #: [id number] Family : Order #: [id number] CLICK HERE TO VIEW EXAM RADIOLOGY REPORT PROCEDURE: VEIN CENTER ENDOVENOUS ABLATION FIRST VEIN LEFT GREAT SAPHENOUS VEIN COMPARISON: None. INDICATIONS: Pain co-occurrent and due to varicose veins of bilateral legs i83.813 OPERATIVE REPORT: The risks and benefits of the procedure had been previously discussed, and were rediscussed at length. Informed written consent was obtained by me and Elpidio Nesbitt assisted. Time out procedure was performed. The left lower extremity was prepared and draped in the usual sterile fashion to allow knee flexion in the sterile field. Duplex ultrasound probe was draped in a sterile cover, sterile transmission gel was used. Venous mapping was performed with the areas of dilation and large tributaries marked. The total length was 18 cm from the entry mid thigh to 3 cm below the saphenofemoral junction. The vein below this region was tortuous and extra fascial, non amenable to laser ablation. The diameter of the greater saphenous vein ranged from 6-9 mm. A 30 gauge needle and 1% buffered lidocaine was used to anesthetize the entry site. A 4 mm incision was made with a scalpel and the saphenous vein was entered percutaneously under direct ultrasound guidance with a micropuncture set, a single stick was successful in gaining access. A micro-guide wire was inserted and the needle removed. A micro-set including a dilator was inserted over the microwire and the needle and dilator were removed. A 0.018 guide wire was inserted through the micro-set and threaded through the saphenous vein to the saphenofemoral junction. The dilator was removed and an introducer sheath was inserted over the wire until the end of the sheath entered the saphenofemoral junction. The dilator and wire were removed and the 600 micron fiber was introduced and placed and positioned so that it extended beyond the sheath and was 3 cm peripheral to the saphenofemoral femoral junction. Final position of the fiber was determined by ultrasound guidance and duplex imaging. Tumescent anesthetic was delivered by ultrasound guidance. 150 cc of fluid was delivered along the entire course of the saphenous vein. The solution consisted of 500 cc of normal saline with 20mL of 1% lidocaine and 10 mL of sodium bicarbonate. A final positioning check was made. The energy source was turned on by means of the foot pedal and the fiber and sheath were withdrawn. The total number of Joules delivered was 858. The laser was active for 107 seconds under continuous pulse, average laser use of 8 J. Laser start time 1:51 p.m. March 22, 2022. Laser stop time 1:56 p.m. March 22, 2022. A duplex ultrasound revealed compressibility and flow at the saphenofemoral junction immediately after the procedure. Hemostasis at the access site was achieved. The skin incision of the saphenous vein was closed with a 4 x 4. A compression stocking was applied. Postop instructions were given. A follow up appointment was recommended and scheduled. The patient tolerated the procedure well and was discharged in good condition. CONCLUSION: 1. Technically successful endovenous laser ablation of the left great saphenous vein. Dictated by: Anahi Mcnulty MD on 03/22/2022 at 13:59 Approved by: Anahi Mcnulty MD on 03/22/2022 at 14:03 Normal [facility] VC CONSULT FOLLOWUPon 2021 VC CONSULT FOLLOWUP Patient: SPENCRE BO Exam Date: 02/25/2022 : 1965 Gender:F Ordering : DR ANAHI MCNULTY M.D. Admission #: [id number] Family : Order #: [id number] CLICK HERE TO VIEW EXAM RADIOLOGY REPORT PROCEDURE: VEIN CENTER CONSULTATION FOLLOWUP VEIN CENTER - OFFICE VISIT FOLLOW UP COMPARISON: VC CONSULT FOLLOWUP, 02/07/2022. VC CONSULT FOLLOWUP, 01/31/2022. PROGRESS NOTES: The patient reports significant decrease and pulling sensation of the right thigh in the past week. The patient has not required oral analgesics. The patient has worn compression stocking and taken her blood thinner. The patient has followed our recommendations to walk 20-30 minutes once or twice per day since the procedure. The patient now reports marked decrease in swelling of the right leg compared to the left with decrease in size of branch saphenous tributaries. The patient's relative pain of the left leg is not significantly worse as her right leg continues to clinically improve. Review of the ultrasound performed the same day demonstrates occlusive thrombus extending throughout the ablated right anterior accessory saphenous vein. Continued retraction of heat induced thrombus extension into the common femoral vein now measuring 2.7 mm, solidly attached without movement. The patient expressed a desire to proceed with treatment of incompetent left great saphenous vein with intravenous laser ablation in March. IMPRESSION: 1. Continued retraction heat induced thrombus extension now measuring 2.7 mm into the common femoral vein 2. Persistent incompetent left great saphenous vein with pain and swelling PLAN: 1. Discontinue Xarelto 2. Intravenous laser ablation left great saphenous vein Nurse notes, history and physical were reviewed and confirmed, see attached forms. The nurse was present throughout the physical exam and consultation Dictated by: Anahi Mcnulty MD on 02/25/2022 at 14:09 Approved by: Anahi Mcnulty MD on 02/25/2022 at 14:12 Normal [facility] VC EXT VENOUS RT LIMITEDon 0 02-25-2022 VC EXT VENOUS RT LIMITED Patient: LIZ BO Exam Date: 02/25/2022 : 1965 Gender:F Ordering : DR ANAHI MCNULTY M.D. Admission #: [id number] Family : Order #: [id number] CLICK HERE TO VIEW EXAM RADIOLOGY REPORT PROCEDURE: VEIN CENTER EXTREMITY VENOUS RIGHT LIMITED COMPARISON: VC CONSULT FOLLOWUP, 01/31/2022. VC COMP CONSULTATION, 12/23/2021. VC EXT VENOUS RT LIMITED, 02/07/2022. VC EXT VENOUS RT LIMITED, 01/31/2022. INDICATIONS: Phlebitis and thrombophlebitis of superficial veins of right lower extremity I80.01 TECHNIQUE: Lower extremity sharp scale and Duplex Doppler evaluation of the deep venous system from the inguinal ligament through the calf veins. FINDINGS: REGION: Right lower extremity. THROMBI: Negative for DVT. Stable EHIT 2.7mm into the right CFV. COMPRESSIBILITY: Noncompressibility corresponding to thrombus FLOW: Absent flow corresponding to thrombus *Exam performed in accordance with [facility] practice guidelines- Peripheral venous ultrasound, November 07, 2009. 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 Dictated by: Anahi Mcnulty MD on 02/25/2022 at 14:01 Approved by: Anahi Mcnulty MD on 02/25/2022 at 14:03 Normal [facility] VC CONSULT FOLLOWUPon 2021 VC CONSULT FOLLOWUP Patient: SPENCER BO Exam Date: 02/07/2022 : 1965 Gender:F Ordering : DR ANAHI MCNULTY M.D. Admission #: [id number] Family : Order #: [id number] CLICK HERE TO VIEW EXAM RADIOLOGY REPORT PROCEDURE: VEIN CENTER CONSULTATION FOLLOWUP VEIN CENTER - OFFICE VISIT FOLLOW UP COMPARISON: VC CONSULT FOLLOWUP, 01/31/2022. PROGRESS NOTES: The patient reports now mild discomfort in the right leg, which was moderate to severe following the procedure. The patient has worn her compression stocking as directed.. The patient has followed our recommendations to walk 20-30 minutes once or twice per day since the procedure. Physical exam demonstrates no areas of erythema or warmth to suggest cellulitis or thrombophlebitis. No active ulceration. The great saphenous vein cannot be palpated. Review of the ultrasound performed the same day demonstrates occlusive thrombus extending throughout the treated right anterior accessory saphenous vein with propagation of heat induced thrombus slightly retracted now extending up to 3.8 mm into the common femoral vein. This is firmly a fixed and not free floating. The patient expressed a desire to continue follow-up of clot propagation and to allow additional healing of the right leg before starting treatment of the left leg. IMPRESSION: 1. Persistent propagation of heat induced thrombus in the right anterior accessory saphenous vein, firmly fixed to the wall and extending into the common femoral vein 3.8 mm, previously 4 mm. PLAN: Follow-up ultrasound in 3-4 weeks Continue Xarelto as prescribed Nurse notes, history and physical were reviewed and confirmed, see attached forms. The nurse was present throughout the physical exam and consultation Dictated by: Anahi Mcnulty MD on 02/07/2022 at 12:24 Approved by: Anahi Mcnulty MD on 02/07/2022 at 12:26 [facility] VC EXT VENOUS RT LIMITEDon 0 02-07-2022 VC EXT VENOUS RT LIMITED Patient: LIZ BO. Exam Date: 02/07/2022 : 1965 Gender:F Ordering : DR ANAHI MCNULTY M.D. Admission #: [id number] Family : Order #: [id number] CLICK HERE TO VIEW EXAM RADIOLOGY REPORT PROCEDURE: VEIN CENTER EXTREMITY VENOUS RIGHT LIMITED COMPARISON: VC EXT VENOUS RT LIMITED, 01/31/2022. INDICATIONS: Phlebitis and thrombophlebitis of superficial veins of right lower extremity I80.01 TECHNIQUE: Lower extremity sharp scale and Duplex Doppler evaluation of the deep venous system from the inguinal ligament through the calf veins. FINDINGS: REGION: Right lower extremity. THROMBI: Persistent thrombus in GSV/AASV proximal thigh that extends 3.8 mm into the CFV. This thrombus is fixed, and does not move COMPRESSIBILITY: Noncompressibility corresponding to thrombus FLOW: Absent flow corresponding to thrombus OTHER: *Exam performed in accordance with [facility] practice guidelines- Peripheral venous ultrasound, November 07, 2009. 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 Thrombus propagation from the great saphenous vein into the adjacent common femoral vein measures 3.8 mm Dictated by: Anahi Mcnulty MD on 02/07/2022 at 11:59 Approved by: Anahi Mcnulty MD on 02/07/2022 at 12:06 Normal [facility] VC CONSULT FOLLOWUPon 2021 VC CONSULT FOLLOWUP Patient: SPENCER BO. Exam Date: 01/31/2022 : 1965 Gender:F Ordering : DR ANAHI MCNULTY M.D. Admission #: [id number] Family : Order #: [id number] CLICK HERE TO VIEW EXAM RADIOLOGY REPORT PROCEDURE: VEIN CENTER CONSULTATION FOLLOWUP VEIN CENTER - OFFICE VISIT FOLLOW UP COMPARISON: None. PROGRESS NOTES: The patient reports pronounced tenderness within the right groin and proximal thigh in region of treatment. The patient has followed our recommendations to walk 20-30 minutes once or twice per day since the procedure. Physical exam demonstrates decrease in superficial varicosities of the proximal right leg. Persistent varicosities are identified along the legs bilaterally. Review of the ultrasound performed the same day demonstrates occlusive thrombus extending throughout the treated vein, see separate report, consistent with a successful ablation. Thrombus extends 4 millimeters past the saphenofemoral junction. IMPRESSION: 1. Successful ablation of the right anterior accessory saphenous vein 2. Persistent dilated incompetent veins and bilateral leg symptoms 3. Thrombus extends 4 millimeters beyond the saphenofemoral junction. PLAN: Patient will be started on Xarelto 15 mg 2 times per day for 21 days. Ultrasound follow-up in 1 week. Treatment of next vein will be delayed 3 weeks until discontinuation of Xarelto. Nurse notes, history and physical were reviewed and confirmed, see attached forms. The nurse was present throughout the physical exam and consultation Dictated by: Jayy Bell M.D. on 01/31/2022 at 15:43 Approved by: Jayy Bell M.D. on 01/31/2022 at 15:59 Normal [facility] VC EXT VENOUS RT LIMITEDon 0 01-31-2022 VC EXT VENOUS RT LIMITED Patient: LIZ BO Exam Date: 01/31/2022 : 1965 Gender:F Ordering : DR ANAHI MCNULTY M.D. Admission #: [id number] Family : Order #: [id number] CLICK HERE TO VIEW EXAM RADIOLOGY REPORT PROCEDURE: VEIN CENTER EXTREMITY VENOUS RIGHT LIMITED COMPARISON: None. INDICATIONS: Phlebitis and thrombophlebitis of superficial veins of right lower extremity I80.01 TECHNIQUE: Lower extremity sharp scale and Duplex Doppler evaluation of the deep venous system from the inguinal ligament through the calf veins. FINDINGS: REGION: Right lower extremity. THROMBI: Positive for DVT. Heat induced thrombus visualized in the AASV and extends 4 mm into the CFV. Thrombus visualized in AASV from proximal thigh to the proximal calf. COMPRESSIBILITY: Non-compressible AND partially compressible segments. FLOW: Areas of no flow. OTHER: CONCLUSION: 1. Successful post ablation occlusion of the right anterior accessory saphenous vein. 2. Thrombus extends 4 millimeters into the deep system. Patient will be placed on Xarelto 15 mg 2 times per day for 3 weeks, with follow-up ultrasound evaluation in 1 week. Dictated by: Jayy Bell M.D. on 01/31/2022 at 14:58 Approved by: Jayy Bell M.D. on 01/31/2022 at 15:40 Normal [facility] VC ENDOVENOUS ABL 1ST V RTon 01-25-2022 VC ENDOVENOUS ABL 1ST V RT Patient: LIZ BO Exam Date: 01/25/2022 : 1965 Gender:F Ordering : DR ANAHI MCNULTY M.D. Admission #: [id number] Family : Order #: [id number] CLICK HERE TO VIEW EXAM RADIOLOGY REPORT PROCEDURE: VEIN CENTER ENDOVENOUS ABLATION FIRST VEIN RIGHT COMPARISON: None. INDICATIONS: Pain co-occurrent and due to varicose veins of bilateral legs i83.813 OPERATIVE REPORT: The risks and benefits of the procedure had been previously discussed, and were rediscussed at length. Informed written consent was obtained by me and Rolando tanner. Time out procedure was performed. The right lower extremity was prepared and draped in the usual sterile fashion to allow knee flexion in the sterile field. Duplex ultrasound probe was draped in a sterile cover, sterile transmission gel was used. Venous mapping was performed with the areas of dilation and large tributaries marked. The total length was 36 cm from the entry 10 cm [id number] to 3 cm below the saphenofemoral junction. The diameter of the greater saphenous vein ranged from 18 mm. A 30 gauge needle and 1% buffered lidocaine was used to anesthetize the entry site. A 4 mm incision was made with a scalpel and the saphenous vein was entered percutaneously under direct ultrasound guidance with a micropuncture set, a single stick was successful in gaining access. A micro-guide wire was inserted and the needle removed. A micro-set including a dilator was inserted over the microwire and the needle and dilator were removed. A 0.018 guide wire was inserted through the micro-set and threaded through the saphenous vein to the saphenofemoral junction. The dilator was removed and an introducer sheath was inserted over the wire until the end of the sheath entered the saphenofemoral junction. The dilator and wire were removed and the 600 micron fiber was introduced and placed and positioned so that it extended beyond the sheath and was 3 cm peripheral to the saphenofemoral femoral junction. Final position of the fiber was determined by ultrasound guidance and duplex imaging. Tumescent anesthetic was delivered by ultrasound guidance. Two hundred fifty cc of fluid was delivered along the entire course of the saphenous vein. The solution consisted of 500 cc of normal saline with 20mL of 1% lidocaine and 10 mL of sodium bicarbonate. A final positioning check was made. The energy source was turned on by means of the foot pedal and the fiber and sheath were withdrawn. The total number of Joules delivered was 1668. The laser was active for 205 seconds under continuous pulse, average laser use of 8 J. Laser start time 2:15 p.m. January 25, 2022. Laser stop time 2:20 p.m. January 25, 2022. A duplex ultrasound revealed compressibility and flow at the saphenofemoral junction immediately after the procedure. Hemostasis at the access site was achieved. The skin incision of the saphenous vein was closed with a 4 x 4. A compression stocking was applied. Postop instructions were given. A follow up appointment was recommended and scheduled. The patient tolerated the procedure well and was discharged in good condition. CONCLUSION: 1. Technically successful endovenous laser ablation of the right anterior accessory saphenous vein. Dictated by: Jayy Bell M.D. on 01/25/2022 at 14:27 Approved by: Jayy Bell M.D. on 01/25/2022 at 14:30 Normal [facility] VC COMP CONSULTATIONon 12-23 VC COMP CONSULTATION Patient: KALEE BO Exam Date: 12/23/2021 : 1965 Gender:F Ordering : DR AYSE BAKER M.D. Admission #: [id number] Family : Order #: [id number] CLICK HERE TO VIEW EXAM RADIOLOGY REPORT PROCEDURE: VC VEIN CENTER CONSULTATION VEIN CENTER - OFFICE VISIT INITIAL COMPARISON: None. PROGRESS NOTES: 56-year-old female who presents with a 30+ year history of lower extremity pain swelling and varicose veins. The patient has bilateral symptoms, left greater than right. The patient rates the pain as a 2 on a scale of 1-10. The patient describes the pain as aching dull and heavy. Onset was following . The patient's symptoms have progressively gotten worse culminated in in 2 episodes of spontaneous superficial thrombophlebitis both on the left leg with the last episode several weeks ago. 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 The patient's symptoms are relieved by rest, leg elevation, compression stockings which she has worn for 4 years and over the counter oral analgesics. The patient does walk regularly and use the treadmill approximately 5 times a week for exercise. The patient denies any signs and symptoms to suggest arterial ischemia. The patient describes a family history significant for varicose veins in a paternal aunt. Heart disease diabetes in her father. Dementia in her mother. . The patient is on no current prescription medications. Past surgical history significant for a thyroglossal duct cyst removal. No history of deep venous thrombus or pulmonary embolus. See separate history and physical for medication list. No prior treatment for varicose or spider veins. Nursing notes were reviewed. After history and physical exam I discussed at length the pathophysiology of venous hypertension and possible treatments, therapies and strategies available. We discussed at length the importance of elevating the lower extremities above the level of the heart, increased physical activity and compression stocking use. Ultrasound venous reflux study performed the same day was discussed at length with the patient. The report demonstrates severe right anterior accessory saphenous and left great saphenous vein venous insufficiency with associated dilatation period mild right great saphenous and left anterior accessory saphenous vein venous insufficiency. Moderate diffuse bilateral deep vein reflux. Bilateral incompetent branch saphenous tributaries/varicose veins measuring up to 9.4 mm PHYSICAL EXAM: The right leg demonstrates extensive varicose, reticular and spider veins. Some mild hemosiderin staining. staining below the knee. No areas of active ulceration. Mild subcutaneous edema of the ankle The left leg demonstrates extensive varicose, reticular and spider veins. Multiple thrombosed superficial veins noted along the medial mid to distal thigh, knee and lower leg with extensive associated hemosiderin staining. No areas of active ulceration. Some mild subcutaneous edema of the thigh any likely related to the thrombosed superficial veins. Both thighs, legs and feet were symmetrically warm to the touch. Good posterior tibial and dorsalis pedis pulses were present bilaterally. IMPRESSION: 1. Severe right anterior accessory saphenous and left great saphenous vein venous insufficiency with marked dilation 2. Extensive bilateral lower extremity incompetent branch saphenous tributaries/ varicose veins 3. Mild lower extremity subcutaneous edema and bilateral hemosiderin staining 4. No flow significant arterial disease 5. CEAP: C4, Ep, As, Pr PLAN: 1. Endovenous laser ablation right anterior accessory saphenous vein followed by left great saphenous vein, then re-evaluation of the right great and left anterior accessory saphenous veins 2. Micro foam chemical ablation bilateral incompetent branch saphenous tributaries/varicose veins 3. Bilateral injection sclerotherapy of reticular and spider veins 4. Long-term use of bilateral thigh-high 20-30 mm compression stockings for deep vein reflux 5. Elevated legs and continued physical activity for symptomatic relief Nurse notes, history and physical were reviewed and confirmed, see attached forms. The nurse was present throughout the physical exam and consultation Dictated by: Anahi Mcnulty MD on 12/23/2021 at 13:12 Approved by: Anahi Mcnulty MD on 12/23/2021 at 13:56 Normal [facility] VC VENOUS REFLUX ANNA LMTon 0 12-23-2021 VC VENOUS REFLUX ANNA LMT Patient: LIZ BO Exam Date: 12/23/2021 : 1965 Gender:F Ordering : DR AYSE BAKER M.D. Admission #: [id number] Family : Order #: [id number] CLICK HERE TO VIEW EXAM RADIOLOGY REPORT PROCEDURE: VEIN CENTER ULTRASOUND VENOUS REFLUX BILATERAL LIMTED COMPARISON: None. INDICATIONS: Phlebitis and thrombophlebitis of superficial veins of lower extremity bilateral I80.0 TECHNIQUE: Duplex imaging of the lower extremity to assess the deep and superficial venous system for the presence of deep or superficial venous incompetence and to document the location and severity of disease. The study includes evaluation of the great saphenous vein (GSV), anterior accessory saphenous vein (AASV) and small saphenous vein (SSV). Patient scanned in reverse Trendelenburg and standing. FINDINGS: RIGHT LOWER EXTREMITY: Saphenofemoral Junction Reflux: Yes 10.9mm 2.8 sec GSV: Diam (mm) Reflux/ Time (sec) Proximal Thigh 12.1 Yes 1.4 Mid Thigh 2.9 Yes 0.6 Distal Thigh 2.9 Yes 0.5 Prox Calf 2.4 Yes 0.7 Mid Calf 2.3 Yes 0.5 Saphenopopliteal Junction Reflux: 5.6mm Yes 0.4 SSV: Proximal Calf 3.8 Yes 0.5 Mid Calf 1.7 No AASV: Proximal Thigh 12.3 Yes 3.8 Mid Thigh 17.9 Yes 3.1 Distal Thigh 10.0 Yes 3.2 Thrombi: No acute or chronic thrombus. Compressibility: Normal. Flow: Deep venous reflux. Preforator: Dist/med calf 2.6 mm,0.8s. Dist/med calf 4.0 mm, 1.5s. Mid/med calf 5.6 mm, 0.7s. Mid/lat calf 3.5mm Tech Note: Incompetent AASV joins GSV in distal thigh. Incompetent varicosity arising from AASV medial/proximal calf measures 9.4 mm with 0.9s reflux. Proximal/posterior calf varicose vein off of AASV measures 6.7 mm with 2.4 s reflux. Distal/medial lower leg varicose vein measures 7.2 mm with 0.8s reflux. Mid/lateral calf varicosity measures 3.0 mm with 1.0s reflux. LEFT LOWER EXTREMITY: Saphenofemoral Junction Reflux: Yes 7.9 mm 3.8 sec GSV: Diam (mm) Reflux/Time (sec) Proximal Thigh 10.7 Yes 3.0 Mid Thigh 6.7 Yes 2.3 Distal Thigh 9.6 Yes 0.7 Prox Calf 5.0 Yes 3.2 Mid Calf 3.2 Yes 0.4 Saphenopopliteal Junction Relux: 5.5 mm Yes 1.1 SSV: Proximal Calf 5.1 No Mid Calf 1.9 Yes 1.0 AASV: Proximal Thigh 4.0 Yes 0.9 Mid Thigh 3.0 Yes 0.3 Distal Thigh Thrombi: Previously visualized thrombus in GSV distal thigh to proximal calf is still thrombosed today. Compressibility: Non-compressible segments in area of thrombus. Flow: Absent flow in area of thrombus. Deep venous reflux visualized. [employer] Manager: Dist/med calf 4.2 mm, 3.8s. Dist calf 4.2 mm, 0.4s. Prox calf 3.2mm, 3.7s. Prox/lat calf 4.6mm. Tech Note: Incompetent varicosity distal/medial calf measures 4.9 mm with 1.3s reflux. Anterior/mid lower leg varicosity measures 3.9 mm with 1.6s reflux. Medial/distal thigh varicose vein measures 4.0 mm with 0.5s reflux. CONCLUSION: 1. Severe right anterior accessory saphenous vein and severe left great saphenous vein venous insufficiency with marked dilatation 2. Mild right great saphenous and left anterior accessory saphenous vein venous insufficiency 3. Moderate bilateral deep vein reflux 4. Extensive bilateral branch saphenous incompetent tributaries/varicose veins Dictated by: Anahi Mcnulty MD on 12/23/2021 at 12:43 Approved by: Anahi Mcnulty MD on 12/23/2021 at 12:48 Normal [facility] SHANIA DOP LEG LTon 12-14-19 22 US SHANIA DOP LEG LT EXAMINATION: US SHANIA DOP LEG LT HISTORY: Disorder of soft tissue COMPARISON: No relevant comparison available. FINDINGS: REGION: Left leg THROMBI: None within the deep system. COMPRESSIBILITY: Normal compressibility of deep system. FLOW: Normal waveform and antegrade flow between 5 and 20 cm/s. OTHER: Occlusive thrombus within the dilated varicosity arising from the great saphenous vein within the distal thigh clot extending into the greater saphenous vein. IMPRESSION: 1. No deep vein thrombus within the left lower extremity. 2. Superficial thrombophlebitis. Thrombosed superficial varicosity and small segment thrombus within the distal thigh great saphenous vein. Electronically authenticated by: JAYY BELL Date: 2021-12-13 12:41 Normal [facility] Ambulatory Clinical Summaryo n 12-16-2020 Ambulatory Clinical Summary {[id number] Normal [facility] Ambulatory Clinical Summary {[id number] Normal [facility] General Surgery Office/Clini c Noteon 12-16-2020 General Surgery Office/Clinic Note Chief Complaint Post operative visit following excision of pilar cysts. HPI Staff 7 Day post operative visit following excisional biopsy of pilar cyst of the scalp x 5. Reports some tenderness. No bleeding or drainage. Not taking any medications for pain History of Present Illness 1 week s/p excision of pilar cysts x 5; doing well, mild soreness, no drainage; pathology consistent with pilar cysts. Review of Systems ROS - Provider Constitutional: no fever, no sweats, no weight loss. Eyes: no glasses, no blurred vision, no visual loss. ENMT: no dentures, no hoarseness, no swallowing difficulties, no hearing loss, no ear infection(s), no nose bleeds. Cardiovascular: normal blood pressure, no chest pain, regular heartbeat, no heart murmur. Respiratory: no shortness of breath, no cough, no asthma, no wheezing. Gastrointestinal: no nausea, no vomiting, no diarrhea, no constipation, no blood in stool, no change in bowel habits, no abdominal pain, no hepatitis. Genitourinary: no kidney stones, no urine infection, no dysuria. Musculoskeletal: no pain, no weakness. Skin: no changing moles, no rash, yes skin lumps. Neurologic: no seizures, no epilepsy, no headache. Psychiatric: no emotional or psychiatric problem. Heme/Lymph: no bleeding problems, no anemia, no blood clots, no transfusions. Allergy/Immunologic: no swollen lymph nodes/glands, no IV drug abuse. Other: Additional ROS info: Except as noted in the above Review of Systems and in the History of Present Illness, all other systems have been reviewed and are negative or noncontributory. Physical Exam Vitals & Measurements T: 35.8 ?C (Tympanic) skin: incisions healing well, minimal induration/tenderness left parietal incision; no erythema or drainage Assessment/Plan 1. Pilar cysts (L72.11: Pilar cyst) doing well, sutures removed; call with problems/questions Follow-up No qualifying data available Problem List/Past Medical History Ongoing BMI 32.0-32.9,adult Iron deficiency anemia Pilar cysts Varicose veins of legs Historical Allergic dermatitis FH: Diabetes mellitus Iron deficiency Morbid obesity Varicose veins of bilateral lower limbs Procedure/Surgical History Bilateral tubal ligation, section, Excision of thyroglossal duct cyst, Lithotripsy. Medications No active medications Allergies sulfa drugs (Rash) Social History Tobacco Never (less than 100 in lifetime) Tobacco Use:., 12/16/2020 Family History Acute myocardial infarction: Father. Dementia: Mother. Hypertension: Mother and Father. Normal [facility] Comment on above: Result Comment: Elec tronically Signed By: JUSTUS DONNELLY, Naren Hathaway\Date and Time Signed: 12/16/20 13:21 EDT Pathology Noteon 12-15-2020 Pathology Note [id number] D:127 Normal [facility] Operative Reporton Operative Report [id number] D:127 Normal [facility] Consent for Procedure/Surger yon 11-30-2020 Consent for Procedure/Surgery [id number] :127 Normal [facility] Ambulatory Clinical Summaryo n 11-26-2020 Ambulatory Clinical Summary {[id number]}CD:[id number] Normal [facility] Patient Educationon 11-27-19 21 Patient Education Exercise to Lose Raji ght Exercise and a healthy diet may help you lose weight. Your doctor may suggest specific exercises. EXERCISE IDEAS AND TIPS ? Choose low-cost things you enjoy doing, such as walking, bicycling, or exercising to workout videos. ? Take stairs instead of the elevator. ? Walk during your lunch break. ? Park your car further away from work or school. ? Go to a gym or an exercise class. ? Start with 5 to 10 minutes of exercise each day. Build up to 30 minutes of exercise 4 to 6 days a week. ? Wear shoes with good support and comfortable clothes. ? Stretch before and after working out. ? Work out until you breathe harder and your heart beats faster. ? Drink extra water when you exercise. ? Do not do so much that you hurt yourself, feel dizzy, or get very short of breath. Exercises that burn about 150 calories: ? Running 1 ? miles in 15 minutes. ? Playing volleyball for 45 to 60 minutes. ? Washing and waxing a car for 45 to 60 minutes. ? Playing touch football for 45 minutes. ? Walking 1 ? miles in 35 minutes. ? Pushing a stroller 1 ? miles in 30 minutes. ? Playing basketball for 30 minutes. ? Raking leaves for 30 minutes. ? Bicycling 5 miles in 30 minutes. ? Walking 2 miles in 30 minutes. ? Dancing for 30 minutes. ? Shoveling snow for 15 minutes. ? Swimming laps for 20 minutes. ? Walking up stairs for 15 minutes. ? Bicycling 4 miles in 15 minutes. ? Gardening for 30 to 45 minutes. ? Jumping rope for 15 minutes. ? Washing windows or floors for 45 to 60 minutes. Document Released: 09/02/2011 Document Revised: 10/22/2012 Document Reviewed: 09/02/2011 ExitCare? Patient Information ?2013 [email or web address] [facility]. [facility] Physician Referralon 021 Physician Referral [id number] :127 [facility] Vital Signs Date Time Vital Sign Value Performing Clinician Faci litderick 11-16-2023 14:56-0400 Body height 165.1 cm MD Ayse Baker Work Phone: [facility] 11-16-2023 14:56-0400 Body mass index (BMI) [Ratio] 34.7 kg/m2 MD Ayse Baker Work Phone: [facility] 11-16-2023 14:56-0400 Body weight 94.51 kg MD Ayse Baker Work Phone: [facility] 11-16-2023 14:56-0400 Diastolic blood pressure 81 mm[Hg] MD Ayse Baker Work Phone: [facility] 11-16-2023 14:56-0400 Heart rate 70 /min MD Ayse Baker Work Phone: [facility] 11-16-2023 14:56-0400 Systolic blood pressure 131 mm[Hg] MD Ayse Baker Work Phone: [facility] 10-23-2023 14:13-0400 Body height 165.1 cm MD Ayse Baker Work Phone: [facility] 10-23-2023 14:13-0400 Body mass index (BMI) [Ratio] 34.4 kg/m2 MD Ayse Baker Work Phone: [facility] 10-23-2023 14:13-0400 Body weight 94 kg MD Ayse Baker Work Phone: [facility] 10-23-2023 14:13-0400 Diastolic blood pressure 90 mm[Hg] MD Ayse Baker Work Phone: [facility] 10-23-2023 14:13-0400 Heart rate 62 /min MD Ayse Baker Work Phone: [facility] 10-23-2023 14:13-0400 Systolic blood pressure 134 mm[Hg] MD Ayse Baker Work Phone: [facility] Encounters Encounter Date Encounter Type Care Provider Facility Start: 11-16-2023 End: 11-16-2023 ambulatory MD Ayse Baker Work Phone: [facility] Work Phone: Start: 11-16-2023 End: 11-16-2023 Patient encounter procedure MD Ayse Baker Work Phone: [facility] Work Phone: Start: 10-23-2023 End: 10-23-2023 ambulatory Ayse Baker Facility:[facility] Start: 10-23-2023 End: 10-23-2023 Patient encounter procedure MD Ayse Baker Work Phone: [facility] Work Phone: Start: 05-31-2022 End: 06-01-[address] MIRYAM GUTHRIE Facility:[facility] Start: 05-30-[address] ANAHI MCNULTY Facilit y:[facility] Start: 05-27-[address] ANAHI MCNULTY Facilit y:[facility] Start: 05-23-2022 End: 05-24-[address] ANAHI MCNULTY Facility:[facility] Start: 05-18-2022 End: 05-19-[address] ANAHI MCNULTY Facility:[facility] Start: 05-13-2022 End: 05-14-[address] ANAHI MCNULTY Facility:[facility] Start: 05-09-2022 End: 05-10-[address] ANAHI MCNULTY Facility:[facility] Start: 05-02-2022 End: 05-03-[address] ANAHI MCNULTY Facility:[facility] Start: 04-26-2022 End: 04-27-[address] ANAHI MCNULTY Facility:[facility] Start: 04-19-2022 End: 04-20-[address] ANAHI MCNULTY Facility:[facility] Start: 04-12-2022 End: 04-13-[address] ANAHI MCNULTY Facility:[facility] Start: 03-29-2022 End: 03-30-[address] ANAHI MCNULTY Facility:[facility] Start: 03-22-2022 End: 03-23-[address] ANAHI MCNULTY Facility:[facility] Start: 02-25-2022 End: 02-26-[address] ANAHI MCNULTY Facility:[facility] Start: 02-22-2022 ambulatory DR ANAHI MCNULTY Facilit y:H1 Start: 02-10-[address] ANAHI MCNULTY Facilit y:H1 Start: 02-07-2022 End: 02-08-[address] ANAHI MCNULTY Facility:H1 Start: 01-31-2022 End: 02-01-[address] ANAHI MCNULTY Facility:[facility]1 Start: 01-25-2022 End: 01-26-[address] ANAHI MCNULTY Facility:[facility]1 Start: 12-23-2021 End: 12-24-[address] AYSE BAKER Facility:[facility]1 Start: 12-13-2021 End: 12-14-[address] AYSE BAKER Facility:H1 Plan of Treatment Date Care Activity Detail Author Start: 10-23-2023 EKG 12 channel panel [facility] Payers Date Payer Category Payer Self-pay 2023 Unknown [id number] 1965 Unknown [id number] 09.29.83 [id number] 1965 Unknown [id number] .. [id number] 1965 Unknown [id number] 0.1.236452.3.579.2.59 1965 Unknown [id number] 09.29.84 0.1.161013.3.579.259 1965 Unknown [id number] 2.16.84 0.1.590699.3.579.2.593 1965 Unknown [id number] 2.16.84 0.1.649213.3.579.2.593 1965 Unknown [id number] 2.16.84 0.1.319180.3.579.2.593 1965 Unknown [id number] 2.16.84 0.1.138467.3.579.2.593 1965 Unknown [id number] 2.16.84 0.1.601566.3.579.2.593 1965 Unknown [id number] 2.16.84 0.1.591832.3.579.2.593 1965 Unknown [id number] 2.16.84 0.1.322697.3.579.2.593 1965 Unknown [id number] 2.16.84 0.1.512590.3.579.2.593 1965 Unknown [id number] 2.16.84 0.1.174905.3.579.2.593 1965 Unknown [id number] 2.16.84 0.1.635458.3.579.2.593 1965 Unknown [id number] 2.16.84 0.1.914595.3.579.2.593 1965 Unknown [id number] 2.16.84 0.1.413057.3.579.2.593 1965 Unknown [id number] 2.16.84 0.1.341867.3.579.2.593 1965 Unknown [id number] 2.16.84 0.1.833588.3.579.2.593 1965 Unknown [id number] 2.16.84 0.1.301494.3.579.2.593 1965 Unknown [id number] 2.16.84 0.1.083349.3.579.2.593 1965 Unknown [id number] 2.16.84 0.1.324500.3.579.2.593 1959 Unknown [id number] Unknown [id number] 2.16.8 40.1.710929.3.579.2.531 Social History Date Type Detail Facility Start: 10-23-2023 Tobacco smoking stat us MAIS Never smoked tobacco (finding) [facility] Start: 1965 Sex Assigned At Female F [facility] Clinical Note 11-26-2020 Note Date & Type Note Facility 11-26-2020 Note Chief Complaint referral for cyst HPI Staff 55 year old female presents on consultation from Dr. Baker for cyst on scalp. Has multiple cyst through out scalp. All have been present for several years. Never opened or drained. Has had multiple cyst removed from scalp in the past. Denies these being painful. History of Present Illness 55 yo female with long h/o pilar cysts of scalp, some removed in past; now with enlarging cysts, irritating at times; no drainage, no asa or NSAID use. Review of Systems PHQ Score Initial Depression Screen Score: 0 ROS - Provider Constitutional: no fever, no sweats, no weight loss. Eyes: no glasses, no blurred vision, no visual loss. ENMT: no dentures, no hoarseness, no swallowing difficulties, no hearing loss, no ear infection(s), no nose bleeds. Cardiovascular: normal blood pressure, no chest pain, regular heartbeat, no heart murmur. Respiratory: no shortness of breath, no cough, no asthma, no wheezing. Gastrointestinal: no nausea, no vomiting, no diarrhea, no constipation, no blood in stool, no change in bowel habits, no abdominal pain, no hepatitis. Genitourinary: no kidney stones, no urine infection, no dysuria. Musculoskeletal: no pain, no weakness. Skin: no changing moles, no rash, no skin lumps. Neurologic: no seizures, no epilepsy, no headache. Psychiatric: no emotional or psychiatric problem. Heme/Lymph: no bleeding problems, no anemia, no blood clots, no transfusions. Allergy/Immunologic: no swollen lymph nodes/glands, no IV drug abuse. Other: Additional ROS info: Except as noted in the above Review of Systems and in the History of Present Illness, all other systems have been reviewed and are negative or noncontributory. Physical Exam Vitals & Measurements T: 36.5 ?C (Tympanic) HR: 68(Peripheral) RR: 16 BP: 120/84 HT: 165.1 cm HT: 165.1 cm WT: 88.4 kg WT: 88.4 kg BMI: 32.43 HEENT: normal conjunctiva, sclera clear, no scleral icterus, EOM intact, PERRLA, oral mucosa moist without lesions. Neck: trachea midline, no mass, symmetric, no thyromegaly or nodules, no adenopathy Respiratory: lungs CTA, respirations non labored. Cardiovascular: regular rate and rhythm, no murmur, no pedal edema or varicosities. Musculoskeletal: normal gait, digits and nails without infection, nodes, cyanosis, clubbing. Skin: no rashes, no lesions, no ulcers, multiple pilar cysts, largest 1 cm right temporal area; no drainage or erythema. Psychiatric/Neuro: oriented to time, place, person, judgement normal, affect appropriate for age, insight intact, no focal deficits. Tests: , review of old records completed, Discussed surgical options, risks, and possible complications with patient. Assessment/Plan 1. Pilar cysts (L72.11: Pilar cyst) plan excisional biopsy multiple pilar cysts of scalp under local anesthesia at [facility], informed consent obtained. Follow-up No qualifying data available Patient Education Exercise to Lose Weight, Dayl-es-Nfzj Problem List/Past Medical History Ongoing BMI 32.0-32.9,adult Iron deficiency anemia Pilar cysts Varicose veins of legs Historical Allergic dermatitis FH: Diabetes mellitus Iron deficiency Morbid obesity Varicose veins of bilateral lower limbs Procedure/Surgical History Bilateral tubal ligation, section, Excision of thyroglossal duct cyst, Lithotripsy. Medications No active medications Allergies sulfa drugs (Rash) Social History Tobacco Never (less than 100 in lifetime) Tobacco Use:., 11/26/2020 Family History Acute myocardial infarction: Father. Dementia: Mother. Hypertension: Mother and Father. [facility] Comment on above: Result Comment: Elec tronically Signed By: JUSTUS DONNELLY, Naren Hathaway\Date and Time Signed: 11/26/20 12:06 EDT Evaluation note Note Date & Type Note Facility Evaluation note Diagnosis Onset Date Epigastric abdominal pain ac [place] HTN (hypertension) acute [facility] Work Phone: Summary Purpose Family History Relationship Condition Age at Onset Recorded Date/T claernce father Diabetes mellitus Unknown Heart disease Unknown Not Specified Dementia Unknown Family history of mental disorder Unknown Advance Directives Advance Directive Response Recorded Date/ Time Advance Directives No October 22 2:05pm Chief Complaint and Reason for Visit Chief Complaint BP Issues Check Up Reason for Visit Epigastric abdominal pain HTN (hypertension) Additional Source Comments INFORMATION SOURCE (unrecogn ized section and content) DATE CREATED AUTHOR 12/20/2020 [facility] DATE CREATED AUTHOR AUTHOR'S ORGANIZ ATION 06/07/2022 [facility] DATE CREATED AUTHOR AUTHOR'S ORGANIZ ATION 10/27/2023 [facility] Care Teams (unrecognized sec tion and content) Team Status: Active Member Role Status Dates Ayse Baker MD Primary Care Provider Active Team Status: Inactive Member Role Status Dates Ayse Baker MD Primary Care Provide r, Attending Provider Active Start: October 23, 2023 End: October 23, 2023 Team Status: Inactive Member Role Status Dates Ayse Baker MD Primary Care Provide r, Attending Provider Active Start: November 16, 2023 End: November 16, 2023 Goals (unrecognized section and content) Goals may be documented in a n alternate section FOR RECORDS PERTAINING TO PATIENTS WHO ARE OR HAVE BEEN ENROLLED IN A CHEMICAL DEPENDENCY/SUBSTANCEABUSE PROGRAM, SOME INFORMATION MAY BE OMITTED. This clinical summary was aggregated from multiple sources. Caution should be exercised in using it in the provision of clinical care. This summary normalizes information from multiple sources, and as a consequence, information in this document may materially change the coding, format and clinical context of patient data. In addition, data may be omitted in some cases. CLINICAL DECISIONS SHOULD BE BASED ON THE PRIMARY CLINICAL RECORDS. [facility] [employer] provides no warranty or guarantee of the accuracy or completeness of information in this document.
--- NOTE | 2024-01-25 06:15 | CT_ITS ---
[address] [address] Patient Name: TRENT BO MRN: [id number] date: 1965 Sex: F Assigned Patient Location: ER Current Patient Location: ED.MAIN Accession/Order Number: [id number] Exam Date: 01/25/2024 06:25 Report Date: 01/25/2024 07:07 At the request of: CHAPIN MARKER Procedure: CT abdomen pelvis wo con EXAMINATION: CT abdomen pelvis wo con HISTORY: left flank pain COMPARISON: No relevant comparison available. TECHNIQUE: Axial, Coronal, and Sagittal images were created without IV contrast. Dose reduction techniques were achieved by using automated exposure control and/or adjustment of mA and/or kV according to patient size and/or use of iterative reconstruction technique. FINDINGS: LUNG BASES: No visible pulmonary or pleural disease. LIVER: Scattered hepatic hypodensities, indeterminate BILIARY: No dilatation or calcification. PANCREAS: No lesion, fluid collection, ductal dilatation, or atrophy. SPLEEN: No enlargement or focal lesion. ADRENALS: No mass or enlargement. KIDNEYS: Normal right. Asymmetrically enlarged left kidney with perinephric stranding. Mild left hydroureteronephrosis extending to a 7 mm distal ureterolith axial image 114 BOWEL/MESENTERY: No visible mass, obstruction, or bowel wall thickening. Normal appendix AORTA/VASCULAR: No aneurysm or dissection. RETROPERITONEUM: No mass or adenopathy. LYMPH NODES: No adenopathy. URINARY BLADDER: No visible focal wall thickening, lesion, or calculus. PELVIC ORGANS: 7.9 cm pelvic mass inseparable from the lower uterine segment. Heterogeneous dilated central cavity measuring 4.2 cm, axial image 115 ABDOMINAL WALL: No mass or hernia. BONES: No bony lesion or fracture. OTHER: Negative. CT/CT abdomen pelvis wo con IMPRESSION: 7 mm distal left ureterolith with mild associated obstructive uropathy 7.9 cm pelvic mass likely uterine with dilated endometrial cavity. Pelvic ultrasound recommended for further characterization Electronically authenticated by: ANAHI MCNULTY Date: 01/25/2024 07:07
--- NOTE | 2024-01-25 06:19 | ED.GENADUL1 ---
Documented by User: Marsha Cool MD 01/25/24 06:44 HPI HPI - General Adult General Chief complaint: Urogenital-Female Stated complaint: BACK PAIN Time Seen by Provider: 01/25/24 06:06 Source: patient Mode of arrival: walk-in Limitations: no limitations History of Present Illness HPI narrative: This 58-year-old female with a history of kidney stones around 30 years ago presents for evaluation of left flank pain. She states the pain started in the middle of the night. She has not been able to get comfortable. She had 1 episode of vomiting. She also has pressure across her lower abdomen. She has had some urinary frequency and her urine has been dark. She has not had a fever. She denies any chest pain or shortness of breath. Related Data Home Medications ?Medication ?Instructions ?Recorded ?Confirmed amlodipine 5 mg tablet 5 mg PO DAILY 01/25/24 01/25/24 losartan 50 mg tablet 50 mg PO DAILY 01/25/24 01/25/24 Allergies Allergy/AdvReac Type Severity Reaction Status Date / Time sulfamethoxazole Allergy Verified 01/25/24 05:52 [From Bactrim] trimethoprim [From Bactrim] Allergy Verified 01/25/24 05:52 Opioid HPI Opioid Management Most Recent Opioid Data: Last Pain Scale 6 01/25/24 06:33 Last MAR Pain Assessment 01/25/24 06:33 Review of Systems ROS Status of ROS 10 or more systems reviewed and unremarkable except as noted in history and below Exam Narrative Exam Narrative: Vital signs and Nursing Notes reviewed: Patient is afebrile with a normal pulse, blood pressure is elevated at 152/90, she is not hypoxic with pulse ox of 100% on room air General: Nontoxic but somewhat uncomfortable appearing middle-aged female, no respiratory distress, no active vomiting HEENT: Normocephalic atraumatic, mucous membranes are moist and pink, eyes are clear, normal conjunctiva, vision is grossly intact Chest: Lungs are clear to auscultation with good air entry, there is no wheezing rhonchi or rales appreciated no accessory muscle use, patient is speaking in complete sentences-no chest wall tenderness to palpation CVS: Regular rate and rhythm S1-S2, no murmurs rubs or gallops, pulses are brisk and equal bilaterally ABD: Abdomen is soft, nondistended with tenderness across the urinary bladder and in the left lower lateral lumbar region Extremities: Moving all extremities, no lower extremity tenderness or swelling noted, negative Homans' sign, pulses are brisk and equal bilaterally Skin: Normal in appearance without rash,pallor, petechiae or purpura Neuro: No focal deficits Constitutional Vital Signs, click to edit/add: Last Vital Signs Temp 97.9 F 01/25/24 05:52 Pulse 60 01/25/24 08:20 Resp 18 01/25/24 08:20 BP 138/80 01/25/24 08:20 Pulse Ox 100 01/25/24 08:20 O2 Del Method Room Air 01/25/24 05:52 Course Vital Signs Vital signs: Vital Signs Temperature 97.9 F 01/25/24 05:52 Pulse Rate 68 01/25/24 05:52 Respiratory Rate 18 01/25/24 05:52 Blood Pressure 152/90 H 01/25/24 05:52 Pulse Oximetry 100 01/25/24 05:52 Oxygen Delivery Method Room Air 01/25/24 05:52 Temperature 97.9 F 01/25/24 05:52 Pulse Rate 60 01/25/24 08:20 Respiratory Rate 18 01/25/24 08:20 Blood Pressure 138/80 01/25/24 08:20 Pulse Oximetry 100 01/25/24 08:20 Oxygen Delivery Method Room Air 01/25/24 05:52 Medical Decision Making Lab Data Labs: Lab Results 01/25/24 01/25/24 Range/Units 06:00 06:05 WBC 7.5 (4.0-11.0) 10^3/uL RBC 4.73 (4.20-5.40) 10^6/uL Hgb 13.6 (12.0-16.0) g/dL Hct 39.7 (36.0-48.0) % MCV 83.9 (81.0-99.0) fL MCH 28.8 (26.7-34.0) pg MCHC 34.3 (29.9-35.2) g/dL RDW 12.5 (11.0-15.0) % Plt Count 249 (150-450) 10^3/uL MPV 10.2 (9.5-13.5) fL Neut % (Auto) 77.6 H (43.0-75.0) % Lymph % (Auto) 14.5 L (20.5-60.0) % Alfalfa % (Auto) 5.6 (1.7-12.0) % Eos % (Auto) 1.5 (0.9-7.0) % Baso % (Auto) 0.4 (0.2-2.0) % Neut # (Auto) 5.9 (1.4-6.5) 10^3/uL Lymph # (Auto) 1.1 L (1.2-3.8) 10^3/uL Alfalfa # (Auto) 0.4 (0.3-0.8) 10^3/uL Eos # (Auto) 0.1 (0.0-0.7) 10^3/uL Baso # (Auto) 0.0 (0.0-0.1) 10^3/uL Abs Immat Gran (auto) 0.03 (0.00-0.03) 10^3/uL Imm/Tot Granulo (auto) 0.4 (0.0-0.5) % Sodium 140 (136-145) mmol/L Potassium 3.9 (3.5-5.1) mmol/L Chloride 105 (98-107) mmol/L Carbon Dioxide 28.5 (21.0-32.0) mmol/L Anion Gap 10.4 BUN 19.0 H (7.0-18.0) mg/dL Creatinine 1.00 (0.55-1.02) mg/dL Est GFR ( Amer) >60 (>=60) Est GFR (Non-Af Amer) 57 L (>=60) BUN/Creatinine Ratio 19.0 Glucose 141 H (74-106) mg/dL Calcium 9.4 (8.5-10.1) mg/dL Total Bilirubin 0.4 (0.2-1.0) mg/dL AST 27 (15-37) U/L ALT 42 (14-59) U/L Alkaline Phosphatase 87 (46-116) U/L Total Protein 7.7 (6.4-8.2) g/dL Albumin 4.2 (3.4-5.0) g/dL Globulin 3.5 g/dL Albumin/Globulin Ratio 1.2 Urine Color Yellow (YELLOW) Urine Clarity Clear (CLEAR) Urine pH 6.0 (5.0-9.0) Ur Specific [place] >=1.030 A (1.005-1.025) Urine Protein 30 A (NEG/TRACE) mg/dL Urine Glucose (UA) Negative (NEGATIVE) mg/dL Urine Ketones Negative (NEGATIVE) mg/dL Urine Occult Blood Large A (NEGATIVE) Urine Nitrite Negative (NEGATIVE) Urine Bilirubin Negative (NEGATIVE) Urine Urobilinogen 0.2 (0.2-1.0) EU/dL Ur Leukocyte Esterase Trace A (NEGATIVE) Urine RBC 20-50 A (0-2) #/HPF Urine WBC 0-2 A (NONE SEEN) #/HPF Ur Squamous Epith Cells Few A (NONE/RARE) #/LPF Urine Crystals Seen A (None Seen) #/HPF Calcium Oxalate Crystal Rare Urine Bacteria Large A (NONE SEEN) #/HPF Urine Casts None seen (NONE SEEN) #/LPF Urine Mucus None seen (NONE SEEN) Ur Culture Indicated? Yes Imaging Data CT scan - abdomen: Radiologist's impression: ITS Impressions Abdomen/Pelvis CT 01/25/24 06:15 IMPRESSION: 7 mm distal left ureterolith with mild associated obstructive uropathy 7.9 cm pelvic mass likely uterine with dilated endometrial cavity. Pelvic ultrasound recommended for further characterization Electronically authenticated by: ANAHI MCNULTY Date: 01/25/2024 07:07 Discharge Plan Discharge Chief Complaint: Urogenital-Female Clinical Impression: Acute left flank pain, Hydronephrosis with renal and ureteral calculous obstruction Patient Disposition: Admitted as Observation Time of Disposition Decision: 08:52 Condition: Good Documented by User: Nikolas Piña MD 01/25/24 08:52 HPI HPI - General Adult General Chief complaint: Urogenital-Female Stated complaint: BACK PAIN Time Seen by Provider: 01/25/24 06:06 Related Data Home Medications ?Medication ?Instructions ?Recorded ?Confirmed amlodipine 5 mg tablet 5 mg PO DAILY 01/25/24 01/25/24 losartan 50 mg tablet 50 mg PO DAILY 01/25/24 01/25/24 Allergies Allergy/AdvReac Type Severity Reaction Status Date / Time sulfamethoxazole Allergy Verified 01/25/24 05:52 [From Bactrim] trimethoprim [From Bactrim] Allergy Verified 01/25/24 05:52 Opioid HPI Opioid Management Most Recent Opioid Data: Last Pain Scale 6 01/25/24 06:33 Last MAR Pain Assessment 01/25/24 06:33 Exam Constitutional Vital Signs, click to edit/add: Last Vital Signs Temp 97.9 F 01/25/24 05:52 Pulse 60 01/25/24 08:20 Resp 18 01/25/24 08:20 BP 138/80 01/25/24 08:20 Pulse Ox 100 01/25/24 08:20 O2 Del Method Room Air 01/25/24 05:52 Course Vital Signs Vital signs: Vital Signs Temperature 97.9 F 01/25/24 05:52 Pulse Rate 68 01/25/24 05:52 Respiratory Rate 18 01/25/24 05:52 Blood Pressure 152/90 H 01/25/24 05:52 Pulse Oximetry 100 01/25/24 05:52 Oxygen Delivery Method Room Air 01/25/24 05:52 Temperature 97.9 F 01/25/24 05:52 Pulse Rate 60 01/25/24 08:20 Respiratory Rate 18 01/25/24 08:20 Blood Pressure 138/80 01/25/24 08:20 Pulse Oximetry 100 01/25/24 08:20 Oxygen Delivery Method Room Air 01/25/24 05:52 Medical Decision Making [facility] Narrative Medical decision making narrative: 58-year-old female, reports otherwise healthy with left flank pain. Vital stable, the patient is afebrile. Abdominal examination is benign. Care was signed out to me by Dr. Cool with results of imaging pending. Patient to be given a dose of Rocephin for a large amount of bacteria in the urine. CT scan shows a 7 mm distal left ureteral stone with mild hydronephrosis. She has an incidental finding of a uterine mass. Lab work reviewed and noted. She has normal renal function. No leukocytosis. Discussed the incidental uterine mass finding with the patient. She is appropriate for outpatient follow-up with [facility] for this finding. I discussed the case with the on-call urologist Dr. Alonzo. He would like the patient admitted to the hospitalist. He agreed with Rocephin. Strain urine. Keep NPO. Procedure this afternoon. Medical Records Medical records reviewed: Yes I reviewed the patient's medical records Lab Data Lab results reviewed: Yes I reviewed the patient's lab results Labs: Lab Results 01/25/24 01/25/24 Range/Units 06:00 06:05 WBC 7.5 (4.0-11.0) 10^3/uL RBC 4.73 (4.20-5.40) 10^6/uL Hgb 13.6 (12.0-16.0) g/dL Hct 39.7 (36.0-48.0) % MCV 83.9 (81.0-99.0) fL MCH 28.8 (26.7-34.0) pg MCHC 34.3 (29.9-35.2) g/dL RDW 12.5 (11.0-15.0) % Plt Count 249 (150-450) 10^3/uL MPV 10.2 (9.5-13.5) fL Neut % (Auto) 77.6 H (43.0-75.0) % Lymph % (Auto) 14.5 L (20.5-60.0) % Alfalfa % (Auto) 5.6 (1.7-12.0) % Eos % (Auto) 1.5 (0.9-7.0) % Baso % (Auto) 0.4 (0.2-2.0) % Neut # (Auto) 5.9 (1.4-6.5) 10^3/uL Lymph # (Auto) 1.1 L (1.2-3.8) 10^3/uL Alfalfa # (Auto) 0.4 (0.3-0.8) 10^3/uL Eos # (Auto) 0.1 (0.0-0.7) 10^3/uL Baso # (Auto) 0.0 (0.0-0.1) 10^3/uL Abs Immat Gran (auto) 0.03 (0.00-0.03) 10^3/uL Imm/Tot Granulo (auto) 0.4 (0.0-0.5) % Sodium 140 (136-145) mmol/L Potassium 3.9 (3.5-5.1) mmol/L Chloride 105 (98-107) mmol/L Carbon Dioxide 28.5 (21.0-32.0) mmol/L Anion Gap 10.4 BUN 19.0 H (7.0-18.0) mg/dL Creatinine 1.00 (0.55-1.02) mg/dL Est GFR ( Amer) >60 (>=60) Est GFR (Non-Af Amer) 57 L (>=60) BUN/Creatinine Ratio 19.0 Glucose 141 H (74-106) mg/dL Calcium 9.4 (8.5-10.1) mg/dL Total Bilirubin 0.4 (0.2-1.0) mg/dL AST 27 (15-37) U/L ALT 42 (14-59) U/L Alkaline Phosphatase 87 (46-116) U/L Total Protein 7.7 (6.4-8.2) g/dL Albumin 4.2 (3.4-5.0) g/dL Globulin 3.5 g/dL Albumin/Globulin Ratio 1.2 Urine Color Yellow (YELLOW) Urine Clarity Clear (CLEAR) Urine pH 6.0 (5.0-9.0) Ur Specific [place] >=1.030 A (1.005-1.025) Urine Protein 30 A (NEG/TRACE) mg/dL Urine Glucose (UA) Negative (NEGATIVE) mg/dL Urine Ketones Negative (NEGATIVE) mg/dL Urine Occult Blood Large A (NEGATIVE) Urine Nitrite Negative (NEGATIVE) Urine Bilirubin Negative (NEGATIVE) Urine Urobilinogen 0.2 (0.2-1.0) EU/dL Ur Leukocyte Esterase Trace A (NEGATIVE) Urine RBC 20-50 A (0-2) #/HPF Urine WBC 0-2 A (NONE SEEN) #/HPF Ur Squamous Epith Cells Few A (NONE/RARE) #/LPF Urine Crystals Seen A (None Seen) #/HPF Calcium Oxalate Crystal Rare Urine Bacteria Large A (NONE SEEN) #/HPF Urine Casts None seen (NONE SEEN) #/LPF Urine Mucus None seen (NONE SEEN) Ur Culture Indicated? Yes Imaging Data CT scan - abdomen: Attestation: I have reviewed the pertinent imaging results. Radiologist's impression: ITS Impressions Abdomen/Pelvis CT 01/25/24 06:15
[2024-01-25 06:21] LABS: Basophils Percent Auto 0.4 % (0.2-2.0); Eosinophils Absolute Auto 0.1 10^3/uL (0.0-0.7); Eosinophils Percent Auto 1.5 % (0.9-7.0); Hematocrit 39.7 % (36.0-48.0); Hemoglobin 13.6 g/dL (12.0-16.0); Immature Granulocytes Abs Auto 0.03 10^3/uL (0.00-0.03); Immature Granulocytes Pct Auto 0.4 % (0.0-0.5); Lymphocytes Absolute Auto 1.1 10^3/uL (1.2-3.8); Lymphocytes Percent Auto 14.5 % (20.5-60.0); Mean Corpuscular HGB Conc 34.3 g/dL (29.9-35.2); Mean Corpuscular Hemoglobin 28.8 pg (26.7-34.0); Mean Corpuscular Volume 83.9 fL (81.0-99.0); Mean Platelet Volume 10.2 fL (9.5-13.5); Monocytes Absolute Auto 0.4 10^3/uL (0.3-0.8); Monocytes Percent Auto 5.6 % (1.7-12.0); Neutrophils Absolute Auto 5.9 10^3/uL (1.4-6.5); Neutrophils Percent Auto 77.6 % (43.0-75.0); Platelet Count 249 10^3/uL (150-450); Red Blood Count 4.73 10^6/uL (4.20-5.40); Red Cell Distribution Width 12.5 % (11.0-15.0); White Blood Count 7.5 10^3/uL (4.0-11.0)
[2024-01-25 06:23] LABS: Bilirubin Urine NEGATIVE (NEGATIVE); Blood Urine LARGE (NEGATIVE); Clarity Urine CLEAR (CLEAR); Color Urine YELLOW (YELLOW); Glucose Urine UA NEGATIVE (NEGATIVE); Ketones Urine NEGATIVE (NEGATIVE); Leukocyte Esterase Urine TRACE (NEGATIVE); Nitrite Urine NEGATIVE (NEGATIVE); Protein Urine 30 mg/dL (NEG/TRACE); Specific Gravity Urine >=1.030 (1.005-1.025); Urobilinogen Urine 0.2 EU/dL (0.2-1.0)
[2024-01-25 06:29] LABS: Bacteria Urine LARGE #/HPF (NONE SEEN); Calcium Oxalate Crystals Urine RARE; Cast Seen? NONE SEEN #/LPF (NONE SEEN); Crystals Seen? Seen #/HPF (None Seen); Mucus Urine NONE SEEN (NONE SEEN); RBC Urine 20-50 #/HPF (0-2); Squamous Epithelial Cell Urine FEW #/LPF (NONE/RARE); Urine Culture Indicated YES; WBC Urine 0-2 #/HPF (NONE SEEN)
[2024-01-25 06:33] LABS: Alanine Aminotransferase 42 U/L (14-59); Albumin Globulin Ratio 1.2; Albumin Level 4.2 g/dL (3.4-5.0); Alkaline Phosphatase 87 U/L (46-116); Anion Gap 10.4; Aspartate Amino Transferase 27 U/L (15-37); Bilirubin Total 0.4 mg/dL (0.2-1.0); Calcium 9.4 mg/dL (8.5-10.1); Carbon Dioxide 28.5 mmol/L (21.0-32.0); Chloride 105 mmol/L (98-107); Estimated GFR (African America >60 (>=60); Estimated GFR (Non-African Ame 57 (>=60); Globulin 3.5 g/dL; Glucose 141 mg/dL (74-106); Potassium 3.9 mmol/L (3.5-5.1); Sodium 140 mmol/L (136-145); Total Protein 7.7 g/dL (6.4-8.2)
[2024-01-25] MEDS: KETOROLAC TROMETHAMINE 30 MG/ML VIAL IVP ×2 (06:33→13:09)
[2024-01-25] MEDS: ONDANSETRON PF 4 MG/2 ML VIAL IV (06:33)
[2024-01-25] MEDS: 0.9 % SODIUM CHLORIDE 1,000 ML 1000 ML IV (06:34)
[2024-01-25] MEDS: CEFTRIAXONE 1,000 MG in 0.9 % SODIUM CHLORIDE 50 ML 100 MG IV (07:10)
[2024-01-25] MEDS: 0.9 % SODIUM CHLORIDE 1,000 ML 100 ML IV (11:01)
--- NOTE | 2024-01-25 11:43 | PM.HP ---
HPI H&P: HPI History of Present Illness Chief complaint: BACK PAIN/HYDRONEPHROSIS, RENAL+URETERAL CALCULOUS Narrative: 58 y/o female to ER with flank pain. Developed pain in left upper back last week and initially thought muscular then had nausea. History of stones about 30 years ago. This am woke up from sleep with severe pain in left flank. Not able to get comfortable and severe nausea. Emesis x one. To ER and WBC normal. UA showed blood and possible UTI. CT showed obstructing stone in left ureter. Contacted urology who recommended admission and NPO for cystoscopy. Started rocephin for possible UTI and urology consulted. Pain tolerable this am. Opioid HPI Opioid Management Most Recent Opioid Data: Last Pain Scale 6 01/25/24 06:33 Last Pain Assessment 01/25/24 11:20 Last MAR Pain Assessment 01/25/24 06:33 Last ORT Total Score 0 01/25/24 09:38 Last ORT Risk Category Low Risk 01/25/24 09:38 Review of Systems ROS Constitutional Denies: fever, chills or fatigue Cardiovascular Denies: chest pain, palpitations or edema Respiratory Denies: shortness of breath, cough or wheezing Gastrointestinal Reports: abdominal pain, nausea and vomiting; Denies: diarrhea Genitourinary Denies: painful urination PFSH PFSH Medical History (Updated 01/25/24 @ 11:47 by Hesham Aaron MD) Fracture of left wrist ?S62.102A - Fracture of unspecified carpal bone, left wrist, initial encounter for closed fracture (ICD-10) Fracture of left forearm ?S52.92XA - Unspecified fracture of left forearm, initial encounter for closed fracture (ICD-10) Kidney stones ?N20.0 - Calculus of kidney (ICD-10) H/O thyroid cyst ?Z86.39 - Personal history of other endocrine, nutritional and metabolic disease (ICD-10) Acute left flank pain ?R10.9 - Unspecified abdominal pain (ICD-10) Surgical History (Updated 01/25/24 @ 09:33 by Maria G Castillo) H/O: ?Z98.891 - History of uterine scar from previous surgery (ICD-10) Family History (Updated 01/25/24 @ 09:35 by Maria G Castillo) Grandmother Family history of cancer Father Family history of diabetes mellitus Family history of hypertension Family history of myocardial infarction Mother Family history of diabetes mellitus Social History (Updated 01/25/24 @ 09:36 by Maria G Castillo) Within the past year, how often did you have a drink containing alcohol: monthly or less Within the past year, how often did you have six or more drinks on one occasion: never Smoking status: Never smoker Non-prescribed substance use: denies use 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 [employer] Highest level of school completed/degree received: Bachelor's degree Are you now , , , , never or living with a partner: In a typical week, how many times do you talk on the telephone with family, friends, or neighbors: 3 or more times per week How often do you get together with friends or relatives: 3 or more times per week How often do you attend protestant or methodist services: 4 or more times per year Do you belong to any clubs or organizations such as protestant groups unions, [employer] or athletic groups, or school groups: no Total score: 3 Score interpretation: A score of greater than or equal to 2 indicates the lowest level of social isolation. Little interest or pleasure in doing things: not at all Feeling down, depressed, or hopeless: not at all Feel stressed/tense/nervous/anxious/difficulty sleeping: not at all Do you think of yourself as: straight/heterosexual Gender Identity: female Meds Home Medications and Allergies Home Medications ?Medication ?Instructions ?Recorded ?Confirmed ?Type amlodipine 5 mg tablet 5 mg PO DAILY 01/25/24 01/25/24 History losartan 50 mg tablet 50 mg PO DAILY 01/25/24 01/25/24 History Allergies Allergy/AdvReac Type Severity Reaction Status Date / Time sulfamethoxazole Allergy Verified 01/25/24 05:52 [From Bactrim] trimethoprim [From Bactrim] Allergy Verified 01/25/24 05:52 Exam Constitutional Vital Signs, click to edit/add: Last Vital Signs Temp 98.0 F 01/25/24 09:38 Pulse 53 L 01/25/24 09:38 Resp 18 01/25/24 09:38 BP 121/72 01/25/24 09:38 Pulse Ox 96 01/25/24 09:38 O2 Del Method Room Air 01/25/24 09:38 Documenting provider has reviewed patient's vital signs: yes Common normals: no apparent distress, oriented x3 and alert HENMT Common normals: normocephalic Eye Common normals: PERRL and EOMs intact bilaterally Respiratory Common normals: normal respiratory effort and clear to auscultation bilaterally Cardio Common normals: regular rate, regular rhythm, no gallops, no murmurs and no rub GI Common normals: Normal to inspection, nondistended, normoactive bowel sounds present and non-tender Extremity Common normals: no pedal edema Results Labs Labs: Short CBC 01/25/24 Range/Units 06:05 WBC 7.5 (4.0-11.0) 10^3/uL Hgb 13.6 (12.0-16.0) g/dL Hct 39.7 (36.0-48.0) % Plt Count 249 (150-450) 10^3/uL BMP 01/25/24 06:05 Sodium 140 Potassium 3.9 Chloride 105 Carbon Dioxide 28.5 BUN 19.0 H Creatinine 1.00 Glucose 141 H Calcium 9.4 Liver Function 01/25/24 Range/Units 06:05 Total Bilirubin 0.4 (0.2-1.0) mg/dL AST 27 (15-37) U/L ALT 42 (14-59) U/L Alkaline Phosphatase 87 (46-116) U/L Albumin 4.2 (3.4-5.0) g/dL Urine 01/25/24 Range/Units 06:00 Urine Color Yellow (YELLOW) Urine Clarity Clear (CLEAR) Urine pH 6.0 (5.0-9.0) Ur Specific [place] >=1.030 A (1.005-1.025) Urine Protein 30 A (NEG/TRACE) mg/dL Urine Glucose (UA) Negative (NEGATIVE) mg/dL Imaging CT scan - abdomen: Attestation: I have reviewed the pertinent imaging results. Assessment and Plan Assessment and Plan (1) Pelvic mass: (2) Left ureteral stone: (3) Hydronephrosis with renal and ureteral calculous obstruction: (4) UTI (urinary tract infection): (5) Hypertension, essential, benign: Plan Admitted with stone and urology consulted. Remain NPO for cystoscopy later today. Give IV fluids and toradol. Use morphine PRN. Continue rocephin for possible UTI. Resume home BP meds and monitor. Pelvic mass on CT and denies vaginal bleeding and no pelvic pain. Will need to follow up with PCP and can have outpatient US.
--- NOTE | 2024-01-25 11:50 | CM.NOTE ---
Rounds made with Dr. Aaron. Plan of care discussed with Ms. King. Dr. Aaron reviews CT findings and suggests outpatient follow with PCP/ice maker for ultrasound. Ms. King verbalizes understanding.
[2024-01-25] MEDS: IOHEXOL 300 MG/ML - 50 ML BTL INJ (16:29)
--- NOTE | 2024-01-25 16:29 | XR_ITS ---
The [address] [address] Patient Name: TRENT BO MRN: [id number] date: 1965 Sex: F Assigned Patient Location: ID Current Patient Location: Accession/Order Number: [id number] Exam Date: 01/25/2024 16:00 Report Date: 01/26/2024 06:59 At the request of: CELINA GALLEGOS Procedure: XR urethrogram retrograde EXAM: XR urethrogram retrograde HISTORY: LEFT SIDE KIDNEY STONE COMPARISON: None. TECHNIQUE: 16.23 mg. 6 images. FINDINGS: Retrograde injection of iodinated contrast into the left renal collecting system. Hyperdensity and subsequent postcontrast filling defect demonstrated in rthe distal ureter. Nonopacification of the left renal pelvis or proximal ureter. Interval placement of a left ureteral stent XR/XR urethrogram retrograde IMPRESSION: Retrograde exam demonstrating filling defect in the distal left ureter likely representing calcification Electronically authenticated by: ANAHI MCNULTY Date: 01/26/2024 06:59
--- NOTE | 2024-01-25 16:34 | P.URCN_ITS ---
Urology - CN: HPI Date of Consult Consult date: 01/25/24 Requesting Physician: Hesham Aaron MD Primary Care Provider: Ayse Baker MD Consult Narrative Reason for consult IM: Obstructing 7 mm stone in left distal ureter, UTI Narrative: 58 yo female presents to ER with about a week history of intermittent left flank pain. Pain more severe earlier today. NO fever, pain with occasional nausea. CT obtained shows left hydronephrosis with 7 mm left distal ureteral stone and urologic consultation obtained. Has history of stone many years ago, treated by Dr. Contreras. Had subsequent ureteral stent removed in the outpatient setting. The entire PMH,PSH,ROS,family and social history ,meds, and allergies as noted in admission H and P performed by Dr. Aaron and is unchanged. cc:: CC: Hesham Aaron MD [facility] PFS Medical History (Updated 01/25/24 @ 11:47 by Hesham Aaron MD) Fracture of left wrist ?S62.102A - Fracture of unspecified carpal bone, left wrist, initial encounter for closed fracture (ICD-10) Fracture of left forearm ?S52.92XA - Unspecified fracture of left forearm, initial encounter for closed fracture (ICD-10) Kidney stones ?N20.0 - Calculus of kidney (ICD-10) H/O thyroid cyst ?Z86.39 - Personal history of other endocrine, nutritional and metabolic disease (ICD-10) Acute left flank pain ?R10.9 - Unspecified abdominal pain (ICD-10) Surgical History (Updated 01/25/24 @ 09:33 by Maria G Castillo) H/O: ?Z98.891 - History of uterine scar from previous surgery (ICD-10) Family History (Updated 01/25/24 @ 09:35 by Maria G Castillo) Grandmother Family history of cancer Father Family history of diabetes mellitus Family history of hypertension Family history of myocardial infarction Mother Family history of diabetes mellitus Social History (Updated 01/25/24 @ 09:36 by Maria G Castillo) Within the past year, how often did you have a drink containing alcohol: monthly or less Within the past year, how often did you have six or more drinks on one occasion: never Smoking status: Never smoker Non-prescribed substance use: denies use 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 Highest level of school completed/degree received: Bachelor's degree Are you now , , , , never or living with a partner: In a typical week, how many times do you talk on the telephone with family, friends, or neighbors: 3 or more times per week How often do you get together with friends or relatives: 3 or more times per week How often do you attend orthodoxy or mandaen services: 4 or more times per year Do you belong to any clubs or organizations such as orthodoxy groups unions, [employer] or athletic groups, or school groups: no Total score: 3 Score interpretation: A score of greater than or equal to 2 indicates the lowest level of social isolation. Little interest or pleasure in doing things: not at all Feeling down, depressed, or hopeless: not at all Feel stressed/tense/nervous/anxious/difficulty sleeping: not at all Do you think of yourself as: straight/heterosexual Gender Identity: female Meds Home Medications and Allergies Home Medications ?Medication ?Instructions ?Recorded ?Confirmed ?Type amlodipine 5 mg tablet 5 mg PO DAILY 01/25/24 01/25/24 History cephalexin 500 mg capsule 500 mg PO BID 5 days #10 caps 01/25/24 Rx losartan 50 mg tablet 50 mg PO DAILY 01/25/24 01/25/24 History Allergies Allergy/AdvReac Type Severity Reaction Status Date / Time sulfamethoxazole Allergy Verified 01/25/24 05:52 [From Bactrim] trimethoprim [From Bactrim] Allergy Verified 01/25/24 05:52 Exam Narrative Exam Narrative: HEENT, normal Heart, RRR Lungs clear Abd: soft, NT, minimal left flank tenderness normal external female genitalia LE: no edema Neuro: awake, alert, cooperative. Constitutional Vital Signs, click to edit/add: Last Vital Signs Temp 98.1 F 01/25/24 13:12 Pulse 63 01/25/24 13:12 Resp 16 01/25/24 13:12 BP 116/71 01/25/24 13:12 Pulse Ox 96 01/25/24 13:12 O2 Del Method Room Air 01/25/24 13:12 Results Labs Labs: Short CBC 01/25/24 Range/Units 06:05 WBC 7.5 (4.0-11.0) 10^3/uL Hgb 13.6 (12.0-16.0) g/dL Hct 39.7 (36.0-48.0) % Plt Count 249 (150-450) 10^3/uL BMP 01/25/24 06:05 Sodium 140 Potassium 3.9 Chloride 105 Carbon Dioxide 28.5 BUN 19.0 H Creatinine 1.00 Glucose 141 H Calcium 9.4 Liver Function 01/25/24 Range/Units 06:05 Total Bilirubin 0.4 (0.2-1.0) mg/dL AST 27 (15-37) U/L ALT 42 (14-59) U/L Alkaline Phosphatase 87 (46-116) U/L Albumin 4.2 (3.4-5.0) g/dL Urine 01/25/24 Range/Units 06:00 Urine Color Yellow (YELLOW) Urine Clarity Clear (CLEAR) Urine pH 6.0 (5.0-9.0) Ur Specific [place] >=1.030 A (1.005-1.025) Urine Protein 30 A (NEG/TRACE) mg/dL Urine Glucose (UA) Negative (NEGATIVE) mg/dL Additional Findings Additional findings: Viewed labs, viewed UA, viewed CT scan and report Urology Assessment and Plan Assessment and Plan (1) Hydronephrosis with renal and ureteral calculous obstruction: (2) UTI (urinary tract infection): Plan Discussed options with the patient and her . These include conservative mgmt versus operative intervention. Given the stone size, and associated UTI, would recommend operative intervention, with main goal of draining the left kidney. UTI associated with obstruction could lead to sepsis situation, which we would like to avoid. Given distal stone location, will attempt ureteroscopic laser ablation and stone basket extraction. She is aware of needing ureteral stent. She wishes to proceed. She is aware of operative risks, including need for additional procedural intervention. Discussed eventual need for continued follow up over time and option of metabolic stone workup. She already received IV abx in the ER earlier today. Thanks for consultation.
--- NOTE | 2024-01-29 15:49 | CM.DCFOLLOWU ---
Person spoke with: patient How are you feeling? still some discomfort, tenderness, soreness How is your pain? discomfort, but back to work Did you understand your discharge instructions? yes Do you have any questions about your discharge instructions? no Were you given any prescriptions at discharge? yes Were you able to get your prescriptions filled? yes Do you understand how to take your medications as ordered? yes Do you have any questions about your follow up appointment and do you plan to keep your follow up appointment? no questions. Dr. Alonzo's office caller her today and scheduled follow up. She let the office know still peeing a little blood, has some discomfort/pain, soreness, tenderness. Advised pt to call back to office with any other concerns or come to ED. Is there anything else that you would like to discuss? no Questions/Comments/Concerns/Other: no
== END 2024-01-25 18:35 | disposition home or self-care (01) ==
LOC: ER 09:02 → MS 09:33
PROVIDERS: Urology; Admitting Provider Family Medicine; Emergency Provider Emergency Medicine; PCP Family Medicine; Visit Provider Family Medicine
PROC: (CPT 918; principal; 2024-01-25 15:30)
DX: N13.6 Pyonephrosis (principal); I10 Essential (primary) hypertension; R19.00 Intra-abdominal and pelvic swelling, mass and lump, unspecified site
CPT/HCPCS: 52356; 36415; 74176; 74420; 80053; 81001; 82365; 85025; 87086; 96361; 96365; 96375; 96376; 99285; 99999; G0378; J0696; J1110; J1885; J2250; J2405; J2704; J3010; Q9967

== ENCOUNTER 2024-02-21 16:04 | Outpatient (OUT) | payer OTHER, SELFPAY ==
--- NOTE | 2024-02-21 16:08 | US_ITS ---
The [address] [address] Patient Name: TRENT BO MRN: [id number] date: 1965 Sex: F Assigned Patient Location: US Current Patient Location: Accession/Order Number: [id number] Exam Date: 02/21/2024 16:15 Report Date: 02/22/2024 07:24 At the request of: CHELO PRECIADO Procedure: US pelvis w/ transvaginal EXAMINATION: US pelvis w/ transvaginal HISTORY: MASS OF UTERUS N85.8 COMPARISON: No relevant comparison available. FINDINGS: Transabdominal and transvaginal images Very limited ventilation due to acoustic shadowing from uterine masses The uterus is enlarged in size lobular contour measuring 13.9 x 5.5 x 8.6 cm. 2 focal myometrial masses measuring 5.4 and 4.4 cm in size with areas of calcification acoustic shadowing The endometrium is not definitively visualized The ovaries are not definitively seen No free fluid US/US pelvis w/ transvaginal IMPRESSION: Enlarged lobular uterus with 2 focal myometrial masses. Calcified fibroids are favored Nonvisualization of the endometrium and ovaries Electronically authenticated by: ANAHI MCNULTY Date: 02/22/2024 07:24
== END 2024-02-21 16:05 | disposition home or self-care (01) ==
LOC: US 16:04
PROVIDERS: PCP Family Medicine; Visit Provider Family Medicine
DX: N85.8 Other specified noninflammatory disorders of uterus (principal)
CPT/HCPCS: 76830; 76856

== ENCOUNTER 2024-03-28 10:00 | Outpatient (OUT) | payer OTHER, SELFPAY ==
--- OUTSIDE RECORDS SUMMARY | 2024-03-28 10:06 | XMS_ITS | CCD ---
Author Organization [facility] CliniSyri Care Team Providers Care Manager Mba Name Role Phone HAMLET, DR ANAHI Reich [...] Unavailable ZIEBJAKE, DR JAYY Santos Consulting Unavailable PRECIADO, DR AYSE Esposito Admitting Unavailable PRECIADO, DR AYSE Esposito Attending Unavailable BALL, DR WITT Primary Care Unavailable WEST, DR ANAHI Reich Consulting Unavailable PRECIADO, DR AYSE Esposito Consulting Unavailable WEST, DR [...] ANAHI Reich Consulting Unavailable ZIEBER, DR JAYY Santso Consulting Unavailable WEST, DR ANAHI Reich Admitting Unavailable WEST, DR ANAHI Reich Attending Unavailable BALL, DR WITT Primary Care Unavailable WEST, DR ANAHI Reich Consulting Unavailable PRECIADO, DR AYSE Esposito Admitting Unavailable PRECIADO, DR AYSE Esposito Attending Unavailable BALL, DR WITT Primary Care Unavailable ZIEBER, DR JAYY Santos Consulting Unavailable PRECIADO, DR AYSE Esposito Consulting Unavailable WEST, DR [...] Unavailable WEST, DR ANAHI Reich Consulting Unavailable Preciado, Ayse Esposito Attending Unavailable Preciado, Ayse Esposito Primary Care Unavailable Preciado, Ayse Esposito Admitting Unavailable MD Ayse Preciado Primary Care Provider MD Ayse Preciado Attending Provider [phone] AYSE PRECIADO Primary Care Physician Gurdeep SWEENEY Attending Unavailable Gurdeep SWEENEY Attending Unavailable Gurdeep SWEENEY Admitting Unavailable Gurdeep SWEENEY Attending Unavailable Gurdeep SWEENEY Referring Unavailable Gurdeep SWEENEY Referring Unavailable Gurdeep SWEENEY Attending Unavailable LUZ PAGAN Attending Unavailable LUZ PAGAN Attending Unavailable Allergies Allergy Classification Reported Allergen(s) Allergy Type Date of Onset Reaction(s) Facility Sulfonamides (antibiotic) (1 source) Sulfonamides (Antibiotic); Translations: [sulfa drugs] Drug Allergy Eruption of skin (disorder) [facility] (2 sources) Sulfamethoxazole / Trimethoprim Drug Allergy [facility] Repository (3 sources) Sulfamethoxazole Drug Allergy [address] [place] [address] Repository (3 sources) Sulfonamides (Antibiotic) Drug allergy (disorder) [facility] Repository (3 sources) Trimethoprim Drug Allergy 4 [facility] Repository (2 sources) Sulfonamides (Antibiotic); Translations: [sulfa drugs] Drug allergy Eruption of skin (disorder) [facility] Maciej Medications Current Medications Medication Drug Class(es) Dates Sig (Normalized) Sig (Original) amLODIPine 10 mg oral tablet (3 sources) Dihydropyridine Calcium Channel Jose Start: 02-01-2024 take 10 mg by mouth once daily Amlodipine Active 10 MG PO Daily February 01, 2024 2:59pm Start: 12-15-2023 End: 02-01-2024 take 5 mg by mouth once daily Amlodipine Discontinued 5 MG PO Daily January 10, 2024 8:42am February 01, 2024 2:59pm ciprofloxacin 500 mg oral tablet (2 sources) Quinolone Antimicrobial Start: 01-29-2024 Cipro 500 mg Tab See Instructions, Take 1 tab day prior to procedure and 1 tab day of procdure - afterwards, # 2 tab(s), Refills(s) 0, Pharmacy: [facility]/pharmacy #[id number] Start Date: 01/29/24 Status: Ordered fluticasone furoate 0.0275 mg/actuat metered dose nasal spray (2 sources) Corticosteroid Start: 10-18-2023 take 2 spray(s) nasal route once daily, then take 1 spray(s) nasal route once daily Fluticasone Furoate (Flonase Sensimist) 27.5 mcg/actuation spray,suspension Active 2 SPRAY INTRANASAL Daily October 18, 2023 1:00am Free[employer] sprays (1 spray in each nostril) Nasally Once a day; Note: Source Status: Start; Refills: 1; Provider: Samuel Esposito losartan potassium 50 mg oral tablet (7 sources) Angiotensin 2 Receptor Jose Start: 11-16-2023 End: 12-11-2023 take 50 mg by mouth once daily Losartan Active 50 MG PO daily December 11, 2023 9:50am Start: 10-23-2023 End: 11-16-2023 take 25 mg by mouth once daily Losartan Discontinued 2 5 MG PO Daily November 14, 2023 7:40pm November 16, 2023 3:11pm Problems Active Problems Problem Classification Problem Date Documented Da te Episodic/Chronic Abdominal pain (4 sources) Epigastric pain; Translations: [Epigastric pain] Onset: 4 10-23-2023 Episodic Allergic reactions (2 sources) Atopic dermatitis 11-23-2020 Chronic Calculus of urinary tract (1 source) Kidney stone; Translations: [Calculus of kidney] Onset: 4 Episodic Deficiency and other anemia (2 sources) Iron deficiency anemia 11-24-2020 Episodic Essential hypertension (5 sources) Essential (primary) hypertension; Translations: [Hypertensive disorder] Onset: 4 10-30-2023 Chronic Nutritional deficiencies (2 sources) Iron deficiency 11-23-2020 Episodic Other female genital disorders (1 source) Mass of uterus; Translations: [Other specified noninflammatory disorders of uterus] 02-01-2024 Episodic Other female genital disorders (1 source) Other specified noninflammatory disorders of uterus; Translations: [Other specified symptoms associated with female genital organs] 02-01-2024 Episodic Other nutritional; endocrine; and metabolic disorders (2 sources) Body mass index 30+ - obesity 11-26-2020 Chronic Other nutritional; endocrine; and metabolic disorders (2 sources) Morbid obesity 11-23-2020 Chronic Other screening for suspected conditions (not mental disorders or infectious disease) (4 sources) Encounter for screening mammogram for malignant neoplasm of breast; Translations: [ENC SCR MAMMO MALIG NEOPLASM BREAST] Onset: 2 Episodic Other skin disorders (2 sources) Trichilemmal cyst 11-26-2020 Episodic Phlebitis; thrombophlebitis and thromboembolism (13 sources) Phlebitis and thrombophlebitis of superficial vessels of right lower extremity; Translations: [Phlebitis and thrombophlebitis of superficial vessels of left lower extremity] Onset: 2 Episodic Residual codes; unclassified (1 source) Family history of leukemia; Translations: [FAMILY HISTORY OF LEUKEMIA] Onset: 2 Episodic Residual codes; unclassified (2 sources) Family history of diabetes mellitus 11-23-2020 Episodic Varicose veins of lower extremity (8 sources) Varicose veins of bilateral lower extremities with pain; Translations: [Varicose veins of bilateral lower limbs] Onset: Episodic Past or Other Problems Problem Classification Problem Date Documented Da te Episodic/Chronic Other connective tissue disease (4 sources) Other specified soft tissue disorders; Translations: [OTHER SPEC SOFT TISSUE DISORDERS] Onset: 12-13-2021 Episodic Results Test Name Value Interpretation Reference Range Facility Inpatient Patient Summaryon 02-19-2024 Inpatient Patient Summary Inpatient Patient Summary [address] [address] Clinical Summary Person Information Name: TRENT BO Age: 59 Years : 1965 Sex: Female PCP: AYSE PRECIADO MD Marital Status: Race: White Ethnicity: Non- or Language: Spanish Visit Id: Visit Reason: KIDNEY STONE Speciality: Acuity: Enc Type: Outpatient Med Service: Surgery Arrival: 02/19/2024 14:32:49 Discharge: Dispo Type: Address: [address] [place] [id number] Provider Notes: Diagnosis: Problems Active Pilar cysts BMI 32.0-32.9,adult Iron deficiency anemia Varicose veins of legs Smoking Status: Functional Status: Sensory Deficits: History of Falls: Mobility Assistance Prior to Admission: ADLs: Current Level of Assistance for Self-Care/Mobility: Cognitive Status: Allergies sulfa drugs (Rash) Laboratory or Other Results This Visit (last charted value for your 02/19/2024 visit) No Laboratory or Other Results This Visit Measurements: Height: Weight: Blood Pressure: Not Valued / Not Valued BMI: Procedures No Procedures Documented Immunizations No Immunizations Documented This Visit Final Med List: ciprofloxacin (Cipro 500 mg Tab) Take 1 tab day prior to procedure and 1 tab day of procdure - afterwards. Refills: 0. Care Team Members: Attending Physician: Gurdeep SWEENEY MD Consulting Physician: Referring Physician: Gurdeep SWEENEY MD Follow up: With: Address: When: Gurdeep SWEENEY [address], [address], [address] [address] Business (1) Comments: The stent has now been removed! You may have some irritation/flank pain due to its removal. Push the fluids to keep the urine clear. As we discussed, the plan will be for a follow-up visit in about 6 months with an abdominal x-ray prior to that visit. My office will have to make arrangements for an order to go to the hospital for that x-ray. Please consider the 24-hour urine/blood work to try to figure out why you are making stones. You can make that decision at any time. Have a great day. Patient Education Information: EU - Cystoscopy with Stent Removal Discharge Instructions (Custom) [facility] Main OR Intraoperative Recor don 02-19-2024 Main OR Intraoperative Record Main OR Intraoperative Record IntraOp Document Type FTURO Summary Primary Physician: Gurdeep SWEENEY MD Finalized Date/Time: 02/19/24 15:19:48 Pt. Name: TRENT BO El Vaz./Sex: 1965 Female Med Rec #: [id number] Physician: Gurdeep SWEENEY MD Financial #: [id number] Pt. Type: O Room/Bed: / Admit/Disch: 02/19/24 14:32:49 - Institution: Case Times FTURO Entry 1 Patient Times In Room 02/19/24 15:10:00 Out Room 02/19/24 15:19:00 Procedure Times Start 02/19/24 15:16:00 Stop 02/19/24 15:16:00 Anesthesia Times Last Modified By: Ludy Dietrich 02/19/24 15:19:36 Case Attendance FTURO Entry 1 Entry 2 Entry 3 Case Attendee Gurdeep SWEENEY MD, Kelsie E McClain CST, Kimberly A Role Performed Surgeon - Primary Supervisor Furnace Process - Primary Scrub - Primary Time In 02/19/24 15:10:00 02/19/24 15:10:00 02/19/24 15:10:00 Time Out 02/19/24 15:19:00 02/19/24 15:19:00 02/19/24 15:19:00 Procedure CYSTOSCOPY LOCAL WITH CYSTOSCOPY LOCAL WITH CYSTOSCOPY LOCAL WITH STENT REMOVAL(Left) STENT REMOVAL(Left) STENT REMOVAL(Left) Comments Last Modified By: Ludy Dietrich Kelsie E Burgderfer, Ludy E 02/19/24 15:19:39 02/19/24 15:19:39 02/19/24 15:19:39 Surgical Procedures FTURO Entry 1 Procedure Description Procedure CYSTOSCOPY LOCAL WITH Modifiers Left STENT REMOVAL Surgeon Description CYSTO WITH LEFT STENT REMOVAL Primary Procedure Yes Primary Surgeon Gurdeep SWEENEY MD Start 02/19/24 15:16:00 Stop 02/19/24 15:16:00 Anesthesia Type Local Surgical Service Urology Wound Class 2 - Clean-Contaminated Last Modified By: Ludy Dietrich 02/19/24 15:19:38 General Case Data FTURO Pre-Care Text: Classifies surgical wound, implements aseptic technique, initiates traffic control Entry 1 Case Information OR URO 1 FT Case Level None Wound Class 2 - Clean-Contaminated Specialty Urology Preop Diagnosis KIDNEY STONE Postop Same As Preop Yes Postop Diagnosis KIDNEY STONE Outcomes Met? Yes Last Modified By: Ludy Dietrich 02/19/24 15:09:39 Post-Care Text: The patient is free from signs and symptoms of infection EU IntraOp - FTURO Pre-Care Text: Implements protective measures prior to operative or invasive procedure, confirms identity before the operative or invasive procedure, verifies operative procedure, surgical site, and laterality Entry 1 EU Perioperative Protocols Procedure(s) CYSTOSCOPY LOCAL WITH Patient Identity Birthday, ID Band STENT REMOVAL(Left) Verified (select at Check, Patient least 2): Participation Consents / H and P HandP, Surgery/Procedure Operative Site N/A Verified Consent Marking Verified Surgical Site Yes Laterality Verified Yes Verified Procedure Verified Yes Correct Patient Yes Position Verified Availability Equipment, Medication Time Out Gurdeep SWEENEY MD, Verified (If Participants Ludy Dietrich, Applicable) Jennifer Varner CST Time Out Complete 02/19/24 15:13:00 Allergies Reviewed? Yes Allergies Reviewed Self/Patient With Body Position Low Lithotomy Prep Area VAGINA Prep Agents Betadine Solution Skin. Condition Unable to Visualize Description N/A Additional None Specimens Comment N/A Specimens Collected Vitals - EU Blood Pressure 135/85 Pulse 74 bpm Respirations 14 br/min SPO2 98 % EBL 0 IandO - EU Total Intake 0 mL Total Output 0 mL Outcomes Met? Yes Last Modified By: Ludy Dietrich 02/19/24 15:14:06 Post-Care Text: The patient is free from signs and symptoms of injury caused by extraneous objects Sign Out FTURO Entry 1 Before Patient Leaves OR Nurse verbally Yes Nurse verbally n/a confirms with the confirms with the team the name of team that the procedure(s) instrument, sponge, recorded and needle counts are correct (or N/A) Nurse verbally n/a Nurse verbally Yes confirms with the confirms with the team how the team whether there specimen is labeled are any equipment (including patient problems to be name), if applicable addressed Sign Out Complete 02/19/24 15:16:00 Last Modified By: Ludy Dietrich 02/19/24 15:19:30 Case Comments Finalized By: Ludy Dietrich Document Signatures Signed By: Ludy Dietrich 02/19/24 15:19 Ludy Dietrich 02/19/24 15:19 Ludy Dietrich 02/19/24 15:19 [facility] Main OR Preoperative Recordo n 02-19-2024 Main OR Preoperative Record Main OR Preoperative Record Holding Area Document Type FTURO Summary Primary Physician: Gurdeep SWEENEY MD Finalized Date/Time: 02/19/24 14:49:34 Pt. Name: TRENT BO El AmbrocioB./Sex: 1965 Female Med Rec #: [id number] Physician: Gurdeep SWEENEY MD Financial #: [id number] Pt. Type: O Room/Bed: / Admit/Disch: 02/19/24 14:32:49 - Institution: Case Times Holding FTURO Pre-Care Text: Verifies consent for planned procedure, identifies individual values and wishes concerning care, includes family members in perioperative teaching Secures patient's records' belongings, and valuables, maintains patient's dignity and privacy, and maintains patient confidentiality Entry 1 In Holding 02/19/24 14:46:00 Outcomes Met? Yes Last Modified By: Flip CONTE, Radha HIRSCH 02/19/24 14:46:31 Post-Care Text: The patient participates in decisions affecting his or her perioperative plan of care The patient's right to privacy is maintained Surgery Checklist FTURO Entry 1 Patient Birthday, ID Band Procedure History and Physical, Identification: Check, Patient Verification: Surgical Consent, With Participation Patient NPO after Midnight: n/a Personal Items: Jewelry Personal Items clothes Limitations: none Comment: Complaints of Pain: No Skin Integrity Unable to Visualize Vitals - EU Blood Pressure 135/85 Pulse 74 bpm Respirations 14 br/min SPO2 98 % Additional None RN Reviewed Yes Specimens Collected Last Modified By: TORREY Castelan RN, Ruthann 02/19/24 14:49:32 Finalized By: TORREY Castelan RN, Ruthann Document Signatures Signed By: TORREY Castelan RN, Ruthann 02/19/24 14:49 Normal [facility] Operative Reporton Operative Report Operative Report Patient: TRENT BO Age: 59 years Sex: Female : 1965 Associated Diagnoses: None Author: Gurdeep SWEENEY MD Procedure Operative Information Details: Date/ Time: 02/19/2024 15:22:00. Pre-Op Dx: Foreign Body in Bladder - T19.1XXA. Post-Op Dx: Same. Anesthesia Type: Local. Procedure: Local Cystoscopy with Stent Removal. Complications: None. Risks/Benefits/Informed Consent: Surgical risks, benefits, details of the procedure have been explained to the patient, Full informed consent has been obtained. Intraoperative Information Prepped: The patient was prepped with the Betadine solution. Anesthesia: 2% Xylocaine Jelly per urethra. Procedure: Cystoscopy and Left Stent Removal, The flexible Cystoscope was passed in retrograde fashion into the bladder without difficulty, The bladder was viewed in entirety and found to be without tumors or stones, Mild inflammation was seen surrounding the orifice with the stent seen protruding from it, The stent was then grasped and removed in its entirety. Specimens Removed: None. Devices Implanted: None. Postoperative Information Discharge: The patient tolerated the procedure well and was subsequently discharged home, Follow-up 6 months with [facility]. Consider 24-hour urine/metabolic workup prior to that visit.. Normal [facility] Comment on above: Result Comment: Elec tronically Signed By: Gurdeep SWEENEY MD\.br\Date and Time Signed: 02/19/24 15:22 EDT Outpatient Surgery Discharge Instructionon 02-19-2024 Outpatient Surgery Discharge Instruction Outpatient Surgery Discharge Instruction [address] [address] Patient Discharge Instructions PERSON INFORMATION Name: TRENT BO Date of : 1965 Current Date: 02/19/2024 15:21:45 PHYSICIANS Admitting Physician: Gurdeep SWEENEY MD Comment: Discharge Diagnosis: TRENT BO has been given the following list of follow-up instructions, prescriptions, and patient education materials: IF UNABLE TO CONTACT YOUR PHYSICIAN AND YOU FEEL IT IS AN EMERGENCY, GO TO THE NEAREST EMERGENCY ROOM OR CALL 911 Follow up: With: Address: When: Gurdeep SWEENEY [address] [place] [address], [address], [place] [phone] Business (1) Comments: The stent has now been removed! You may have some irritation/flank pain due to its removal. Push the fluids to keep the urine clear. As we discussed, the plan will be for a follow-up visit in about 6 months with an abdominal x-ray prior to that visit. My office will have to make arrangements for an order to go to the hospital for that x-ray. Please consider the 24-hour urine/blood work to try to figure out why you are making stones. You can make that decision at any time. Have a great day. Comment: PATIENT EDUCATION INFORMATION Instructions: Cystoscopy with Stent Removal ? Voiding after the procedure: there may be some pain, burning, urgency, frequency and blood tinged urine following the procedure. These symptoms usually resolve within 2-5 days. Drink the amount of fluid it takes to keep the urine pink to yellow or clear in color. Drinking enough water and fluids will help to ease any discomfort after your procedure. ? If you are having problems that seem out of the ordinary, please call. ? If unable to contact your physician and you feel it is an emergency, go to the nearest emergency room or call 911 ? Diet ? you may resume your normal diet. ? Activity ? you may resume your normal activities ? Call if you have a fever over 100 degrees. IBETZY JOYCE El, have received the attached patient education materials/instructions and have verbalized understanding: May we do a follow up call? Yes No I was present when discharge instructions were given Patient Signature Date Clinican/Nurse Signature _ Date You may receive a survey from [employer] asking you to rate your care experience. Your feedback is important and will help us understand what we do well and how we can improve the quality of care we provide to you, your loved ones and our community. It?s an honor to serve you. Thank you for choosing [facility] Consultation Noteon 02-01-20 Consultation Note [id number]#1.00T IFF [facility] Insurance Correspondence Off iceon 01-30-2024 Insurance Correspondence Office [id number]#1.00TI FF [facility] Operative Reporton Operative Report [id number]#1.00TI FF [facility] Basophils Auto (Bld) [#/Vol] on 01-25-2024 Basophils (Bld) [#/Vol] 0.0 10 3/uL 0.0-0.1 [facility] Basophils/100 WBC Auto (Bld) on 01-25-2024 Basophils/100 WBC (Bld) 0.4 % 0.2-2.0 [facility] Eosinophils/100 WBC Auto (Bl d)on 01-25-2024 Eosinophils/100 WBC (Bld) 1.5 % 0.9-7.0 [facility] Erythrocyte distribution wid th Auto (RBC) [Ratio]on 01-25-2024 Erythrocyte distribution width (RBC) [Ratio] 12.5 % 11.0-15.0 [facility] Estimated glomerular filtrat ion rate (GFR) non- Americanon 01-25-2024 GFR/1.73 sq M.predicted among non-blacks MDRD (S/P/Bld) [Vol rate/Area] 57 mL/min/{1.73_m2} >=60 [facility] Globulin Calc (S) [Mass/Vol] on 01-25-2024 Globulin (S) [Mass/Vol] 3.5 g/dL [facility] Hematocrit Auto (Bld) [Volum e fraction]on 01-25-2024 Hematocrit (Bld) [Volume fraction] 39.7 % 36.0-48.0 [facility] Hemoglobin [Mass/volume] in Bloodon 01-25-2024 Hemoglobin (Bld) [Mass/Vol] 13.6 g/dL 12.0-16.0 [facility] Laboratory - Chemistry and C hemistry - challengeon 01-25-2024 Albumin [Mass/Vol] 4.2 g/dL 3.4-5.0 [facility] ALP [Catalytic activity/Vol] 87 U/L 46-116 [facility] ALT [Catalytic activity/Vol] 42 U/L 14-59 [facility] AST [Catalytic activity/Vol] 27 U/L 15-37 [facility] Bilirubin [Mass/Vol] 0.4 mg/dL 0.2-1.0 [facility] Calcium [Mass/Vol] 9.4 mg/dL 8.5-10.1 [facility] Chloride [Moles/Vol] 105 mmol/L 98-107 [facility] CO2 [Moles/Vol] 28.5 mmol/L 21.0-32.0 [facility] Creatinine [Mass/Vol] 1.00 mg/dL 0.55-1.02 [facility] GFR/1.73 sq M.predicted MDRD (S/P/Bld) [Vol rate/Area] mL/min/{1.73_m2} >=60 [facility] Glucose [Mass/Vol] 141 mg/dL 74-106 [facility] Potassium [Moles/Vol] 3.9 mmol/L 3.5-5.1 [facility] Protein [Mass/Vol] 7.7 g/dL 6.4-8.2 [facility] Sodium [Moles/Vol] 140 mmol/L 136-145 [facility] Urea nitrogen [Mass/Vol] 19.0 mg/dL 7.0-18.0 [facility] Urea nitrogen/Creatinine [Mass ratio] 19.0 mg/mg [facility] Bilirubin Ql (U) Negative NEGATIVE [facility] Glucose (U) [Mass/Vol] Negative NEGATIVE [facility] Ketones Ql (U) Negative NEGATIVE [facility] pH (U) 6.0 [pH] 5.0-9.0 [facility] Specific gravity (U) [Rel density] >=1.030 1.005-1.025 [facility] Urobilinogen Qn (U) 0.2 {Erum'U}/dL 0.2-1.0 [facility] Laboratory - Hematology and Cell countson 01-25-2024 Immature granulocytes/100 WBC (Bld) 0.4 % 0.0-0.5 [facility] - Specimen inform ationon 01-25-2024 Appearance (U) CLEAR CLEAR [facility] Color (U) YELLOW YELLOW [facility] Laboratory - Urinalysison Leukocyte esterase Test strip Ql (U) TRACE NEGATIVE [facility] Mucus Ql (Urine sed) NONE SEEN NONE SEEN [facility] Nitrite Ql (U) Negative NEGATIVE [facility] Protein Ql (U) 30 mg/dL NEG/TRACE [facility] Leukocytes [#/volume] correc aubrey for nucleated erythrocytes in Blood by Automated counon 01-25-2024 WBC corrected for nucl RBC Auto (Bld) [#/Vol] 7.5 10 3/uL 4.0-11.0 [facility] Lymphocytes Auto (Bld) [#/Vo l]on 01-25-2024 Lymphocytes (Bld) [#/Vol] 1.1 10 3/uL 1.2-3.8 [facility] Lymphocytes/100 WBC Auto (Bl d)on 01-25-2024 Lymphocytes/100 WBC (Bld) 14.5 % 20.5-60.0 [facility] MCH Auto (RBC) [Entitic mass ]on 01-25-2024 MCH (RBC) [Entitic mass] 28.8 pg 26.7-34.0 [facility] MCHC Auto (RBC) [Mass/Vol]on 01-25-2024 MCHC (RBC) [Mass/Vol] 34.3 g/dL 29.9-35.2 [facility] MCV Auto (RBC) [Entitic vol] on 01-25-2024 MCV (RBC) [Entitic vol] 83.9 fL 81.0-99.0 [facility] Monocytes Auto (Bld) [#/Vol] on 01-25-2024 Monocytes (Bld) [#/Vol] 0.4 10 3/uL 0.3-0.8 [facility] Monocytes/100 WBC Auto (Bld) on 01-25-2024 Monocytes/100 WBC (Bld) 5.6 % 1.7-12.0 [facility] Neutrophils Auto (Bld) [#/Vo l]on 01-25-2024 Neutrophils (Bld) [#/Vol] 5.9 10 3/uL 1.4-6.5 [facility] Neutrophils/100 WBC Auto (Bl d)on 01-25-2024 Neutrophils/100 WBC (Bld) 77.6 % 43.0-75.0 [facility] No Panel Informationon 01-24 Eosinophils # (Auto) 0.1 10 3/uL 0.0-0.7 [facility] Immature Granulocyte # (Auto) 0.03 10 3/uL 0.00-0.03 [facility] Urine Bacteria LARGE #/HPF NONE SEEN [facility] Urine Calcium Oxalate Crystals RARE [facility] Urine Culture Reflexed YES [facility] Urine Occult Blood LARGE NEGATIVE [facility] Urine Other Casts NONE SEEN #/LPF NONE SEEN [facility] Urine Other Crystals Seen #/HPF None Seen [facility] Urine RBC 20-50 #/HPF 0-2 [facility] Urine Squamous Epithelial Cells FEW #/LPF NONE/RARE [facility] Urine WBC 0-2 #/HPF NONE SEEN [facility] Platelet mean volume Auto (B ld) [Entitic vol]on 01-25-2024 Platelet mean volume (Bld) [Entitic vol] 10.2 fL 9.5-13.5 [facility] Platelets Auto (Bld) [#/Vol] on 01-25-2024 Platelets (Bld) [#/Vol] 249 10 3/uL 150-450 [facility] RBC Auto (Bld) [#/Vol]on RBC (Bld) [#/Vol] 4.73 10 6/uL 4.20-5.40 [facility] Serum or plasma albumin/glob ulin mass ratioon 01-25-2024 Albumin/Globulin [Mass ratio] 1.2 {ratio} [facility] Serum or plasma anion gap de terminationon 01-25-2024 Anion gap [Moles/Vol] 10.4 mmol/L [facility] Estimated glomerular filtrat ion rate (GFR) non- Americanon 10-23-2023 GFR/1.73 sq M.predicted among non-blacks MDRD (S/P/Bld) [Vol rate/Area] mL/min/{1.73_m2} >=60 [facility] Laboratory - Chemistry and C hemistry - challengeon 10-23-2023 Calcium [Mass/Vol] 9.4 mg/dL 8.5-10.1 [facility] Chloride [Moles/Vol] 106 mmol/L 98-107 [facility] CO2 [Moles/Vol] 29.6 mmol/L 21.0-32.0 [facility] Creatinine [Mass/Vol] 0.80 mg/dL 0.55-1.02 [facility] GFR/1.73 sq M.predicted MDRD (S/P/Bld) [Vol rate/Area] mL/min/{1.73_m2} >=60 [facility] Glucose [Mass/Vol] 81 mg/dL 74-106 [facility] Potassium [Moles/Vol] 3.8 mmol/L 3.5-5.1 [facility] Sodium [Moles/Vol] 142 mmol/L 136-145 [facility] Urea nitrogen [Mass/Vol] 17.0 mg/dL 7.0-18.0 [facility] Urea nitrogen/Creatinine [Mass ratio] 21.2 mg/mg [facility] No Panel Informationon 10-22 Troponin I High Sensitivity <4.0 pg/mL 4.0-51.3 [facility] Comment on above: CUT-OFF POINTS HAVE BEEN [...] terminationon 10-23-2023 Anion gap [Moles/Vol] 10.2 mmol/L [facility] MG MAMM SCREEN 3D ANNA CADon 05-31-2022 MG MAMM SCREEN 3D ANNA CAD Patient: TRENT BO Exam Date: 05/31/2022 : 1965 Gender:F Ordering : DR MIRYAM GUTHRIE D.O. Admission #: [id number] Family : Order #: [id number] CLICK HERE TO VIEW EXAM RADIOLOGY REPORT [...] leukemia cancer at age 80. LOCATION: [facility] BREAST COMPOSITION: Heterogeneously dense,which may obscure [...] PALPABLE LUMP SHOULD BE BIOPSIED. Dictated by: Jayy Bell M.D. on 05/31/2022 at 15:57 Approved by: Jayy Bell M.D. on 05/31/2022 at 16:00 Normal [facility] VC INJ SCL [employer] ADVISER VEINSon 1 VC INJ SCL [employer] VEINS Patient: TRENT BO Exam Date: 05/23/2022 : 1965 Gender:F Ordering : DR ANAHI MCNULTY M.D. Admission #: [id number] Family : Order #: [id number] CLICK HERE TO VIEW EXAM RADIOLOGY REPORT PROCEDURE: VEIN CENTER INJECTION SCLEROSING SOLUTION MULTIPLE VEINS SAME COMPARISON: VC INJ SCL [employer] ADVIS[employer] VEINS, 05/18/2022. INDICATIONS: Pain co-occurrent and due [...] Mcnulty MD on 05/23/2022 at 13:35 Normal [facility] VC INJ SCL [employer] ADVISER VEINSon 1 VC INJ SCL [employer] ADVISER VEINS Patient: TRENT BO Exam Date: 05/18/2022 : 1965 Gender:F Ordering : DR ANAHI MCNULTY M.D. Admission #: [id number] Family : Order #: [id number] CLICK HERE TO VIEW EXAM RADIOLOGY REPORT [...] Mcnulty MD on 05/18/2022 at 13:11 Normal [facility] VC CONSULT FOLLOWUPon 2021 VC CONSULT FOLLOWUP Patient: SPENCER BO Exam Date: 05/13/2022 : 1965 Gender:F Ordering : DR ANAHI MCNULTY M.D. Admission #: [id number] Family : Order #: [id number] CLICK HERE TO VIEW EXAM RADIOLOGY REPORT [...] Mcnulty MD on 05/13/2022 at 12:57 Normal [facility] VC EXT VENOUS RT LIMITEDon 0 05-13-2022 VC EXT VENOUS RT LIMITED Patient: TRENT BO Exam Date: 05/13/2022 : 1965 Gender:F Ordering : DR ANAHI MCNULTY M.D. Admission #: [id number] Family : Order #: [id number] CLICK HERE TO VIEW EXAM RADIOLOGY REPORT [...] Mcnulty MD on 05/13/2022 at 12:55 Normal [facility] VC INJ FOAM SCLERO W US MLTI on 05-09-2022 VC INJ FOAM SCLERO W US MLTI Patient: TRENT BO Exam Date: 05/09/2022 : 1965 Gender:F Ordering : DR ANAHI MCNULTY M.D. Admission #: [id number] Family : Order #: [id number] CLICK HERE TO VIEW EXAM RADIOLOGY REPORT [...] and (more content not included)... Normal [facility] VC CONSULT FOLLOWUPon 2021 VC CONSULT FOLLOWUP Patient: SPENCER BO. Exam Date: 05/02/2022 : 1965 Gender:F Ordering : DR ANAHI MCNULTY M.D. Admission #: [id number] Family : Order #: [id number] CLICK HERE TO VIEW EXAM RADIOLOGY REPORT [...] Bell M.D. on 05/02/2022 at 13:15 Normal [facility] VC EXT VENOUS LT LIMITEDon 0 05-02-2022 VC EXT VENOUS LT LIMITED Patient: TRENT BO Exam Date: 05/02/2022 : 1965 Gender:F Ordering : DR ANAHI MCNULTY M.D. Admission #: [id number] Family : Order #: [id number] CLICK HERE TO VIEW EXAM RADIOLOGY REPORT [...] Bell M.D. on 05/02/2022 at 13:07 Normal [facility] VC INJ FOAM SCLERO W US MLTI on 04-26-2022 VC INJ FOAM SCLERO W US MLTI Patient: TRENT BO Exam Date: 04/26/2022 : 1965 Gender:F Ordering : DR ANAHI MCNULTY M.D. Admission #: [id number] Family : Order #: [id number] CLICK HERE TO VIEW EXAM RADIOLOGY REPORT [...] GSV, (more content not included)... Normal [facility] VC CONSULT FOLLOWUPon 2021 VC CONSULT FOLLOWUP Patient: SPENCER BO. Exam Date: 04/19/2022 : 1965 Gender:F Ordering : DR ANAHI MCNULTY M.D. Admission #: [id number] Family : Order #: [id number] CLICK HERE TO VIEW EXAM RADIOLOGY REPORT [...] Mcnulty MD on 04/19/2022 at 13:56 Normal [facility] VC EXT VENOUS RT LIMITEDon 0 04-19-2022 VC EXT VENOUS RT LIMITED Patient: TRENT BO Exam Date: 04/19/2022 : 1965 Gender:F Ordering : DR ANAHI MCNULTY M.D. Admission #: [id number] Family : Order #: [id number] CLICK HERE TO VIEW EXAM RADIOLOGY REPORT [...] Mcnulty MD on 04/19/2022 at 13:24 Normal [facility] VC ENDOVENOUS ABL 1ST V RTon 04-12-2022 VC ENDOVENOUS ABL 1ST V RT Patient: TRENT BO Exam Date: 04/12/2022 : 1965 Gender:F Ordering : DR ANAHI MCNULTY M.D. Admission #: [id number] Family : Order #: [id number] CLICK HERE TO VIEW EXAM RADIOLOGY REPORT [...] The total number of Joules delivered was 78401. The laser was active for 146 seconds [...] Mcnulty MD on 04/12/2022 at 13:30 Normal [facility] VC CONSULT FOLLOWUPon 2021 VC CONSULT FOLLOWUP Patient: SPENCER BO. Exam Date: 03/29/2022 : 1965 Gender:F Ordering : DR ANAHI MCNULTY M.D. Admission #: [id number] Family : Order #: [id number] CLICK HERE TO VIEW EXAM RADIOLOGY REPORT [...] Bell M.D. on 03/29/2022 at 14:07 Normal [facility] VC EXT VENOUS LT LIMITEDon 0 03-29-2022 VC EXT VENOUS LT LIMITED Patient: TRENT BO Exam Date: 03/29/2022 : 1965 Gender:F Ordering : DR ANAHI MCNULTY M.D. Admission #: [id number] Family : Order #: [id number] CLICK HERE TO VIEW EXAM RADIOLOGY REPORT [...] Bell M.D. on 03/29/2022 at 14:02 Normal [facility] VC ENDOVENOUS ABL 1ST V LTon 03-22-2022 VC ENDOVENOUS ABL 1ST V LT Patient: TRENT BO Exam Date: 03/22/2022 : 1965 Gender:F Ordering : DR ANAHI MCNULTY M.D. Admission #: [id number] Family : Order #: [id number] CLICK HERE TO VIEW EXAM RADIOLOGY REPORT PROCEDURE: VEIN CENTER ENDOVENOUS ABLATION FIRST VEIN LEFT GREAT SAPHENOUS VEIN COMPARISON: None. INDICATIONS: Pain co-occurrent and due to varicose veins of bilateral legs i83.813 OPERATIVE REPORT: The risks and benefits of the procedure had been previously discussed, and were rediscussed at length. Informed written consent was obtained by and Elpidio tanner. Time out procedure was performed. The left [...] Mcnulty MD on 03/22/2022 at 14:03 Normal [facility] VC CONSULT FOLLOWUPon 2021 VC CONSULT FOLLOWUP Patient: SPENCER BO Exam Date: 02/25/2022 : 1965 Gender:F Ordering : DR ANAHI MCNULTY M.D. Admission #: [id number] Family : Order #: [id number] CLICK HERE TO VIEW EXAM RADIOLOGY REPORT [...] Mcnulty MD on 02/25/2022 at 14:12 Normal [facility] VC EXT VENOUS RT LIMITEDon 0 02-25-2022 VC EXT VENOUS RT LIMITED Patient: TRENT BO Exam Date: 02/25/2022 : 1965 Gender:F Ordering : DR ANAHI MCNULTY M.D. Admission #: [id number] Family : Order #: [id number] CLICK HERE TO VIEW EXAM RADIOLOGY REPORT [...] Mcnulty MD on 02/25/2022 at 14:03 Normal [facility] VC CONSULT FOLLOWUPon 2021 VC CONSULT FOLLOWUP Patient: SPENCER BO Exam Date: 02/07/2022 : 1965 Gender:F Ordering : DR ANAHI MCNULTY M.D. Admission #: [id number] Family : Order #: [id number] CLICK HERE TO VIEW EXAM RADIOLOGY REPORT [...] Anahi Mcnulty MD on 02/07/2022 at 12:26 Normal [facility] VC EXT VENOUS RT LIMITEDon 0 02-07-2022 VC EXT VENOUS RT LIMITED Patient: TRENT BO Exam Date: 02/07/2022 : 1965 Gender:F Ordering : DR ANAHI MCNULTY M.D. Admission #: [id number] Family : Order #: [id number] CLICK HERE TO VIEW EXAM RADIOLOGY REPORT [...] thrombus OTHER: *Exam performed in accordance with [facility] practice guidelines- Peripheral venous ultrasound, November 07, 2009. 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 Thrombus propagation from the great saphenous vein into the adjacent common femoral vein measures 3.8 mm Dictated by: Anahi Mcnulty MD on 02/07/2022 at 11:59 Approved by: Anahi Mcnulty MD on 02/07/2022 at 12:06 Normal [facility] VC CONSULT FOLLOWUPon 2021 VC CONSULT FOLLOWUP Patient: SPENCER BO Exam Date: 01/31/2022 : 1965 Gender:F Ordering : DR ANAHI MCNULTY M.D. Admission #: [id number] Family : Order #: [id number] CLICK HERE TO VIEW EXAM RADIOLOGY REPORT [...] Bell M.D. on 01/31/2022 at 15:59 Normal [facility] VC EXT VENOUS RT LIMITEDon 0 01-31-2022 VC EXT VENOUS RT LIMITED Patient: TRENT BO. Exam Date: 01/31/2022 : 1965 Gender:F Ordering : DR ANAHI MCNULTY M.D. Admission #: [id number] Family : Order #: [id number] CLICK HERE TO VIEW EXAM RADIOLOGY REPORT [...] Bell M.D. on 01/31/2022 at 15:40 Normal [facility] VC ENDOVENOUS ABL 1ST V RTon 01-25-2022 VC ENDOVENOUS ABL 1ST V RT Patient: TRENT BO Exam Date: 01/25/2022 : 1965 Gender:F Ordering : DR ANAHI MCNULTY M.D. Admission #: [id number] Family : Order #: [id number] CLICK HERE TO VIEW EXAM RADIOLOGY REPORT [...] 36 cm from the entry 10 cm [id number] to 3 cm below the saphenofemoral junction. [...] right anterior accessory saphenous vein. Dictated by: aJyy Bell M.D. on 01/25/2022 at 14:27 Approved by: Jayy Bell M.D. on 01/25/2022 at 14:30 Normal [facility] VC COMP CONSULTATIONon 12-23 VC COMP CONSULTATION Patient: KALEE BO Exam Date: 12/23/2021 : 1965 Gender:F Ordering : DR AYSE PRECIADO M.D. 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 The patient's symptoms are relieved by rest, [...] Mcnulty MD on 12/23/2021 at 13:56 Normal [facility] VC VENOUS REFLUX ANNA LMTon 0 12-23-2021 VC VENOUS REFLUX ANNA LMT Patient: TRENT BO Exam Date: 12/23/2021 : 1965 Gender:F Ordering : DR AYSE PRECIADO M.D. Admission #: [id number] Family : Order #: [id number] CLICK HERE TO VIEW EXAM RADIOLOGY REPORT [...] area of thrombus. Deep venous reflux visualized. Storyboard Artist: Dist/med calf 4.2 mm, 3.8s. Dist calf [...] Mcnulty MD on 12/23/2021 at 12:48 Normal [facility] SHANIA DOP LEG LTon 12-14-19 22 [place] [...] by: JAYY BELL Date: 2021-12-13 12:41 Normal [facility] Vital Signs Date Time Vital Sign Value Performing Clinician Faci lity 02-01-2024 14:32-0400 Body height 165.1 cm [facility] 02-01-2024 14:32-0400 Body mass index (BMI) [Ratio] 34.6 kg/m2 [facility] 02-01-2024 14:32-0400 Body weight 94.34 kg [facility] 02-01-2024 14:32-0400 Diastolic blood pressure 75 mm[Hg] [facility] 02-01-2024 14:32-0400 Heart rate 63 /min [facility] 02-01-2024 14:32-0400 Systolic blood pressure 121 mm[Hg] [facility] 11-16-2023 14:56-0400 Body height 165.1 cm MD Ayse Preciado Work Phone: [facility] 11-16-2023 14:56-0400 Body mass index (BMI) [Ratio] 34.7 kg/m2 MD Ayse Preciado Work Phone: [facility] 11-16-2023 14:56-0400 Body weight 94.51 kg MD Ayse Preciado Work Phone: [facility] 11-16-2023 14:56-0400 Diastolic blood pressure 81 mm[Hg] MD Ayse Preciado Work Phone: [facility] 11-16-2023 14:56-0400 Heart rate 70 /min MD Ayse Preciado Work Phone: [facility] 11-16-2023 14:56-0400 Systolic blood pressure 131 mm[Hg] MD Ayse Preciado Work Phone: [facility] 10-23-2023 14:13-0400 Body height 165.1 cm MD Ayse Preciado Work Phone: [facility] 10-23-2023 14:13-0400 Body mass index (BMI) [Ratio] 34.4 kg/m2 MD Ayse Preciado Work Phone: [facility] 10-23-2023 14:13-0400 Body weight 94 kg MD Ayse Preciado Work Phone: [facility] 10-23-2023 14:13-0400 Diastolic blood pressure 90 mm[Hg] MD Ayse Preciado Work Phone: [facility] 10-23-2023 14:13-0400 Heart rate 62 /min MD Ayse Preciado Work Phone: [facility] 10-23-2023 14:13-0400 Systolic blood pressure 134 mm[Hg] MD Ayse Preciado Work Phone: [facility] Encounters Encounter Date Encounter Type Care Provider Facility Start: 09-03-2024 ambulatory Gurdeep SWEENEY Facility :[facility] Start: 03-19-2024 End: 03-19-2024 ambulatory LUZ LATASHA Not Available Start: 02-22-2024 End: 02-22-2024 ambulatory LUZ LATASHA Not Available Start: 02-19-2024 End: 02-19-2024 ambulatory Gurdeep SWEENEY Facility[facility] Start: 02-19-2024 End: 02-19-2024 Patient encounter procedure Gurdeep SWEENEY [facility] Start: 02-07-2024 End: 02-07-2024 ambulatory Gurdeep SWEENEY Facility:[facility] Start: 02-07-2024 End: 02-07-2024 Patient encounter procedure Gurdeep SWEENEY [facility] Start: 02-01-2024 End: 02-01-2024 ambulatory [facility] Work Phone: Start: 02-01-2024 End: 02-01-2024 Patient encounter procedure [facility] Work Phone: Start: 01-26-2024 ambulatory Gurdeep SWEENEY Facility:[facility] Start: 01-25-2024 Non-patient / Non-visit [facility] Work Phone: Start: 01-25-2024 End: 01-25-2024 ambulatory Gurdeep SWEENEY Facility:CD:[id number] Start: 11-16-2023 End: 11-16-2023 ambulatory MD Ayse Preciado Work Phone: [facility] Work Phone: Start: 11-16-2023 End: 11-16-2023 Patient encounter procedure MD Ayse Preciado Work Phone: [facility] Work Phone: Start: 10-23-2023 End: 10-23-2023 ambulatory Ayse Preciado Facility:[facility] Start: 10-23-2023 End: 10-23-2023 Patient encounter procedure MD Ayse Preciado Work Phone: [facility] Work Phone: Start: 05-31-2022 End: 06-01-2022 ambulatory [...] Start: 12-23-2021 End: 12-24-[address] AYSE PRECIADO Facility:[facility] Start: 12-13-2021 End: 12-14-[address] AYSE PRECIADO Facility:[facility] Procedures Date Procedure Procedure Detail Performing Clinician Bilateral tubal ligation Tyshawn SWEENEY section Gurdeep Spaulding Excision of thyroglossal duct cyst Gurdeep SWEENEY Lithotripsy Gurdeep SWEENEY Plan of Treatment Date Care Activity Detail Author Start: 02-01-2024 Patient referral [facility] Work Phone: Start: 10-23-2023 EKG 12 channel panel [facility] Patient referral [facility] Work Phone: [facility] Payers Date Payer Category Payer Self-pay 2023 Unknown [id number] 1965 Unknown [id number] 2.16.84 [id number] 1965 Unknown [id number] 2.16.84 0.1.139482.3.579.2.593 1965 Unknown [id number] 2.16.84 0.1.939196.3.579.2.593 1965 Unknown [id number] 2.16.84 0.1.651819.3.579.2.593 1965 Unknown [id number] 2.16.84 0.1.094397.3.579.2.593 1965 Unknown [id number] 2.16.84 0.1.531532.3.579.2.593 1965 Unknown [id number] 2.16.84 0.1.767532.3.579.2.593 1965 Unknown [id number] 2.16.84 0.1.557901.3.579.2.593 1965 Unknown [id number] 2.16.84 0.1.762769.3.579.2.593 1965 Unknown [id number] 2.16.84 0.1.860327.3.579.2.593 1965 Unknown [id number] 2.16.84 0.1.857686.3.579.2.593 1965 Unknown [id number] 2.16.84 0.1.817206.3.579.2.593 1965 Unknown [id number] 2.16.84 0.1.263884.3.579.2.593 1965 Unknown [id number] 2.16.84 0.1.868232.3.579.2.593 1965 Unknown [id number] 2.16.84 0.1.350598.3.579.2.593 1965 Unknown [id number] 2.16.84 0.1.562069.3.579.2.593 1965 Unknown [id number] 2.16.84 0.1.038665.3.579.2.593 1965 Unknown [id number] 2.16.84 0.1.061435.3.579.2.593 1965 Unknown [id number] 2.16.84 0.1.143512.3.579.2.593 1965 Unknown [id number] 2.16.84 0.1.626368.3.579.2.593 1965 Unknown [id number] 2.16.84 0.1.870518.3.579.2.593 1965 Unknown [id number] 2.16.8 40.1.160003.3.579.2.727 1965 Unknown [id number] 2.16.8 40.1.023911.3.579.2.727 1965 Unknown [id number] 2.16.8 40.1.137515.3.579.2.727 1965 Unknown [id number] 2.16.8 40.1.595986.3.579.2.727 1965 Unknown [id number] 2.16.84 0.1.187275.3.579.2.1259 1965 Unknown [id number] 2.16.84 0.1.422743.3.579.2.1259 1959 Unknown [id number] Unknown [id number] 2.16.8 40.1.848929.3.579.2.531 Social History Date Type Detail Facility Start: 12-16-2020 End: 10-23-2023 Tobacco smoking status NHIS Never smoked tobacco (finding) [facility] Start: 1965 Sex Assigned At Female [facility] Sex Assigned At Female [facility] Hospital Discharge instructions 02-19-2024 Note Date & Type Note Facility 02-19-2024 Hospital Discharg e instructions Patient Education 02/19/2024 15:20:01 [facility] - Cystoscopy with Stent Removal Discharge Instructions (Custom) Cystoscopy with Stent Removal Voiding after the procedure: there may be some pain, burning, urgency, frequency and blood tinged urine following the procedure. These symptoms usually resolve within 2-5 days. Drink the amount of fluid it takes to keep the urine pink to yellow or clear in color. Drinking enough water and fluids will help to ease any discomfort after your procedure. If you are having problems that seem out of the ordinary, please call. If unable to contact your physician and you feel it is an emergency, go to the nearest emergency room or call 911 Diet you may resume your normal diet. Activity you may resume your normal activities Call if you have a fever over 100 degrees. Follow Up Care 01/29/2024 11:42:41 With:Gurdeep SWEENEY [facility] [employer] [place] [id number] Business (1) When: Unknown Comments:The stent has now been removed!You may have some irritation/flank pain due to its removal. Push the fluids to keep the urine clear.As we discussed, the plan will be for a follow-up visit in about 6 months with an abdominal x-ray prior to that visit. My office will have to make arrangements for an order to go to the hospital for that x-ray.Please consider the 24-hour urine/blood work to try to figure out why you are making stones. You can make that decision at any time.Have a great day. [facility] Clinical Note 02-19-2024 Note Date & Type Note Facility 02-19-2024 Note Patient Education Cystoscopy with Stent Removal ? Voiding after the procedure: there may be some pain, burning, urgency, frequency and blood tinged urine following the procedure. These symptoms usually resolve within 2-5 days. Drink the amount of fluid it takes to keep the urine pink to yellow or clear in color. Drinking enough water and fluids will help to ease any discomfort after your procedure. ? If you are having problems that seem out of the ordinary, please call. ? If unable to contact your physician and you feel it is an emergency, go to the nearest emergency room or call 911 ? Diet ? you may resume your normal diet. ? Activity ? you may resume your normal activities ? Call if you have a fever over 100 degrees. [facility] Hospital Discharge instructions 02-01-2024 Note Date & Type Note Facility 02-01-2024 Hospital Discharg e instructions Ambulatory OrdersReferral to CLERICAL ASSISTANT Time Frame: 02/01/24, Location: [facility] Work Phone: Evaluation + Plan note Note Date & Type Note Facility Evaluation + Plan note Future Appointments Appointment Date:02/12/2024 08:00:00 AM Scheduled Provider: Location:[facility] Appointment Type:Urology CALL PAT FT Appointment Date:02/19/2024 03:15:00 PM Scheduled Provider: Location:[facility] Appointment Type:Urology FT [facility] Evaluation + Plan note Note Date & Type Note Facility Evaluation + Plan note Future Appointments Appointment Date:09/03/2024 02:30:00 PM Scheduled Provider:Gurdeep SWEENEY MD Location:[facility] of [facility] Appointment Type:URO Office Visit [facility] Evaluation note Note Date & Type Note Facility Evaluation note Diagnosis Onset Date Epigastric abdominal pain [facility] HTN (hypertension) acute [facility] Work Phone: Evaluation note Note Date & Type Note Facility Evaluation note Diagnosis Onset Date HTN (hypertension) acute Uterine mass acute [facility] Work Phone: Hospital course Narrative Note Date & Type Note Facility Hospital course Narrative No data available for this section [facility] Hospital Discharge instructions Note Date & Type Note Facility Hospital Discharge instructions No data available for this section [facility] Progress note Note Date & Type Note Facility Progress note No data available for this section [facility] Summary Purpose Family History No Family History Records Found Relationship Condition Age at Onset Recorded Date/T clarence father Diabetes mellitus Unknown Heart disease Unknown Not Specified Dementia Unknown Family history of mental disorder Unknown Advance Directives No Advanced Directives Records Found Advance Directive Response Recorded Date/ Time Advance Directives No October 22 2:05pm Chief Complaint and Reason for Visit Chief Complaint BP Issues Check Up Reason for Visit Epigastric abdominal pain HTN (hypertension) Chief Complaint Check Up bp med concerns Reason for Visit HTN (hypertension) Uterine mass Additional Source Comments INFORMATION SOURCE (unrecogn ized section and content) DATE CREATED AUTHOR 06/07/2022 [facility] DATE CREATED AUTHOR AUTHOR'S ORGANIZ ATION 10/27/2023 [facility] DATE CREATED AUTHOR AUTHOR'S ORGANIZ ATION 02/27/2024 [facility] DATE CREATED AUTHOR AUTHOR'S ORGANIZ ATION 03/21/2024 [facility] [employer] Care Teams (unrecognized sec tion and content) Team Status: Active Member Role Status Dates Ayse Preciado MD Primary Care Provider Active Team Status: Inactive Member Role Status Dates Ayse Preciado MD Primary Care Provide r, Attending Provider Active Start: October 23, 2023 End: October 23, 2023 Team Status: Inactive Member Role Status Dates Ayse Preciado MD Primary Care Provide r, Attending Provider Active Start: November 16, 2023 End: November 16, 2023 Team Status: Active Member Role Status Dates Ayse Preciado MD Primary Care Provider Active Start: January 25, 2024 Marsha Cool DO Attending Provider Active Start: January 25, 2024 Team Status: Inactive Member Role Status Dates Ayse Preciado MD Primary Care Provide r, Attending Provider Active Start: February 01, 2024 End: February 01, 2024 Goals (unrecognized section and content) Goals may be documented in a n alternate sectionGoals may be documented in an alternate section No data available for this section No data available for this section FOR RECORDS PERTAINING TO PATIENTS WHO [...] BE BASED ON THE PRIMARY CLINICAL RECORDS. [facility] [employer] [facility]. provides no warranty or guarantee of the accuracy or completeness of information in this document.
== END 2024-03-28 10:01 | disposition home or self-care (01) ==
LOC: PST 10:01
PROVIDERS: PCP Family Medicine; Visit Provider Obstetrics & Gynecology
DX: Z01.818 Encounter for other preprocedural examination (principal); N85.8 Other specified noninflammatory disorders of uterus; R10.2 Pelvic and perineal pain; D25.9 Leiomyoma of uterus, unspecified

== ENCOUNTER 2024-04-11 06:38 | Day surgery (SDC) | payer OTHER, SELFPAY ==
[2024-03-28 10:31] VITALS: BP 134/79; PULSE 71; TEMP 36.3; O2SAT 98; BMI 35.0
[2024-04-11] VITALS (11 sets, daily range): BP systolic 120–142; BP diastolic 75–86; PULSE 57–73; TEMP 36.2; O2SAT 90–98; BMI 35.0
--- OUTSIDE RECORDS SUMMARY | 2024-04-11 06:40 | XMS_ITS | CCD ---
Author Organization [facility]iniSy[facility] Care Team Providers Care Care Transition Mgr Name Role Phone HAMLET, DR ANAHI Reich [...] WEST, DR ANAHI Reich Consulting Unavailable Preciado, yAse Esposito Attending Unavailable Preciado, Ayse Esposito Primary Care Unavailable Preciado, Ayse Esposito Admitting Unavailable MD Ayse Preciado Primary Care Provider [phone] MD Ayse Preciado Attending Provider [phone] AYSE PRECIADO Primary Care Physician Gurdeep SWEENEY [...] drugs] Drug Allergy Eruption of skin (disorder) [facility] (2 sources) Sulfamethoxazole / Trimethoprim Drug Allergy [facility] Repository (3 sources) Sulfamethoxazole Drug Allergy [address] [place] [address] Repository (3 sources) Sulfonamides (Antibiotic) Drug allergy (disorder) [facility] Repository (3 sources) Trimethoprim Drug Allergy [facility] Repository (2 sources) Sulfonamides (Antibiotic); Translations: [sulfa drugs] Drug allergy Eruption of skin (disorder) [facility] Medications Current Medications Medication Drug Class(es) [...] afterwards, # 2 tab(s), Refills(s) 0, Pharmacy: [facility]/pharmacy #[id number] Start Date: 01/29/24 Status: Ordered fluticasone [...] 02-19-2024 Inpatient Patient Summary Inpatient Patient Summary [address] [address] Clinical Summary Person Information Name: TRENT BO Age: 59 Years : 1965 Sex: Female PCP: AYSE PRECIADO MD Marital Status: Race: White Ethnicity: Non- or Language: Nepali Visit Id: Visit Reason: KIDNEY STONE Speciality: Acuity: Enc Type: Outpatient Med Service: Surgery Arrival: 02/19/2024 14:32:49 Discharge: Dispo Type: Address: [address] [place] [phone] Provider Notes: Diagnosis: Problems Active Pilar cysts [...] up: With: Address: When: Gurdeep SWEENEY [address], [address], [address] [address] Business (1) Comments: The stent [...] Cystoscopy with Stent Removal Discharge Instructions (Custom) [facility] Main OR Intraoperative Recor don 02-19-2024 Main OR Intraoperative Record Main OR Intraoperative Record IntraOp Document Type FTURO Summary Primary Physician: Gurdeep SWEENEY MD Finalized Date/Time: 02/19/24 15:19:48 Pt. Name: TRENT BO El Vaz./Sex: 1965 Female Med Rec #: [id number] Physician: Gurdeep SWEENEY MD Financial #: [id number] Pt. Type: O Room/Bed: / Admit/Disch: 02/19/24 [...] Kimberly A Role Performed Surgeon - Primary General Scrap Worker - Primary Scrub - Primary Time In [...] Dietrich 02/19/24 15:19 Ludy Dietrich 02/19/24 15:19 [facility] Main OR Preoperative Recordo n 02-19-2024 Main OR Preoperative Record Main OR Preoperative Record Holding Area Document Type FTURO Summary Primary Physician: Gurdeep SWEENEY MD Finalized Date/Time: 02/19/24 14:49:34 Pt. Name: TRENT BO El AmbrocioB./Sex: 1965 Female Med Rec #: [id number] Physician: Gurdeep SWEENEY MD Financial #: [id number] Pt. Type: O Room/Bed: / Admit/Disch: 02/19/24 [...] TORREY Castelan RN, Ruthann 02/19/24 14:49 Normal [facility] Operative Reporton Operative Report Operative Report [...] urine/metabolic workup prior to that visit.. Normal [facility] Comment on above: Result Comment: Elec tronically Signed By: Gurdeep SWEENEY MD\.br\Date and Time Signed: 02/19/24 15:22 EDT Outpatient Surgery Discharge Instructionon 02-19-2024 Outpatient Surgery Discharge Instruction Outpatient Surgery Discharge Instruction [address] [address] Patient Discharge Instructions PERSON INFORMATION [...] Follow up: With: Address: When: Gurdeep SWEENEY [address] [place] [address], [address], [place] [phone] Business (1) Comments: The stent has now [...] to serve you. Thank you for choosing [facility] Consultation Noteon 02-01-20 Consultation Note [id number] IFF [facility] Insurance Correspondence Off iceon 01-30-2024 Insurance Correspondence Office [id number]#[id number] FF [facility] Operative Reporton Operative Report [id number]#[id number] FF [facility] Basophils Auto (Bld) [#/Vol] on 01-25-2024 Basophils (Bld) [#/Vol] 0.0 10 3/uL 0.0-0.1 [facility] Basophils/100 WBC Auto (Bld) on 01-25-2024 Basophils/100 WBC (Bld) 0.4 % 0.2-2.0 [facility] Eosinophils/100 WBC Auto (Bl d)on 01-25-2024 Eosinophils/100 WBC (Bld) 1.5 % 0.9-7.0 [facility] Erythrocyte distribution wid th Auto (RBC) [Ratio]on 01-25-2024 Erythrocyte distribution width (RBC) [Ratio] 12.5 % 11.0-15.0 [facility] Estimated glomerular filtrat ion rate (GFR) non- Americanon 01-25-2024 GFR/1.73 sq M.predicted among non-blacks MDRD (S/P/Bld) [Vol rate/Area] 57 mL/min/{1.73_m2} >=60 [facility] Globulin Calc (S) [Mass/Vol] on 01-25-2024 Globulin (S) [Mass/Vol] 3.5 g/dL [facility] Hematocrit Auto (Bld) [Volum e fraction]on 01-25-2024 Hematocrit (Bld) [Volume fraction] 39.7 % 36.0-48.0 [facility] Hemoglobin [Mass/volume] in Bloodon 01-25-2024 Hemoglobin (Bld) [Mass/Vol] 13.6 g/dL 12.0-16.0 [facility] Laboratory - Chemistry and C hemistry - challengeon 01-25-2024 Albumin [Mass/Vol] 4.2 g/dL 3.4-5.0 [facility] ALP [Catalytic activity/Vol] 87 U/L 46-116 [facility] ALT [Catalytic activity/Vol] 42 U/L 14-59 [facility] AST [Catalytic activity/Vol] 27 U/L 15-37 [facility] Bilirubin [Mass/Vol] 0.4 mg/dL 0.2-1.0 [facility] Calcium [Mass/Vol] 9.4 mg/dL 8.5-10.1 [facility] Chloride [Moles/Vol] 105 mmol/L 98-107 [facility] CO2 [Moles/Vol] 28.5 mmol/L 21.0-32.0 [facility] Creatinine [Mass/Vol] 1.00 mg/dL 0.55-1.02 [facility] GFR/1.73 sq M.predicted MDRD (S/P/Bld) [Vol rate/Area] mL/min/{1.73_m2} >=60 [facility] Glucose [Mass/Vol] 141 mg/dL 74-106 [facility] Potassium [Moles/Vol] 3.9 mmol/L 3.5-5.1 [facility] Protein [Mass/Vol] 7.7 g/dL 6.4-8.2 [facility] Sodium [Moles/Vol] 140 mmol/L 136-145 [facility] Urea nitrogen [Mass/Vol] 19.0 mg/dL 7.0-18.0 [facility] Urea nitrogen/Creatinine [Mass ratio] 19.0 mg/mg [facility] Bilirubin Ql (U) Negative NEGATIVE [facility] Glucose (U) [Mass/Vol] Negative NEGATIVE [facility] Ketones Ql (U) Negative NEGATIVE [facility] pH (U) 6.0 [pH] 5.0-9.0 [facility] Specific gravity (U) [Rel density] >=1.030 1.005-1.025 [facility] Urobilinogen Qn (U) 0.2 {Erum'U}/dL 0.2-1.0 [facility] Laboratory - Hematology and Cell countson 01-25-2024 Immature granulocytes/100 WBC (Bld) 0.4 % 0.0-0.5 [facility] Laboratory - Specimen inform ationon 01-25-2024 Appearance (U) CLEAR CLEAR [facility] Color (U) YELLOW YELLOW [facility] Laboratory - Urinalysison Leukocyte esterase Test strip Ql (U) TRACE NEGATIVE [facility] Mucus Ql (Urine sed) NONE SEEN NONE SEEN [facility] Nitrite Ql (U) Negative NEGATIVE [facility] Protein Ql (U) 30 mg/dL NEG/TRACE [facility] Leukocytes [#/volume] correc aubrey for nucleated erythrocytes in Blood by Automated counon 01-25-2024 WBC corrected for nucl RBC Auto (Bld) [#/Vol] 7.5 10 3/uL 4.0-11.0 [facility] Lymphocytes Auto (Bld) [#/Vo l]on 01-25-2024 Lymphocytes (Bld) [#/Vol] 1.1 10 3/uL 1.2-3.8 [facility] Lymphocytes/100 WBC Auto (Bl d)on 01-25-2024 Lymphocytes/100 WBC (Bld) 14.5 % 20.5-60.0 [facility] MCH Auto (RBC) [Entitic mass ]on 01-25-2024 MCH (RBC) [Entitic mass] 28.8 pg 26.7-34.0 [facility] MCHC Auto (RBC) [Mass/Vol]on 01-25-2024 MCHC (RBC) [Mass/Vol] 34.3 g/dL 29.9-35.2 [facility] MCV Auto (RBC) [Entitic vol] on 01-25-2024 MCV (RBC) [Entitic vol] 83.9 fL 81.0-99.0 [facility] Monocytes Auto (Bld) [#/Vol] on 01-25-2024 Monocytes (Bld) [#/Vol] 0.4 10 3/uL 0.3-0.8 [facility] Monocytes/100 WBC Auto (Bld) on 01-25-2024 Monocytes/100 WBC (Bld) 5.6 % 1.7-12.0 [facility] Neutrophils Auto (Bld) [#/Vo l]on 01-25-2024 Neutrophils (Bld) [#/Vol] 5.9 10 3/uL 1.4-6.5 [facility] Neutrophils/100 WBC Auto (Bl d)on 01-25-2024 Neutrophils/100 WBC (Bld) 77.6 % 43.0-75.0 [facility] No Panel Informationon 01-24 Eosinophils # (Auto) 0.1 10 3/uL 0.0-0.7 [facility] Immature Granulocyte # (Auto) 0.03 10 3/uL 0.00-0.03 [facility] Urine Bacteria LARGE #/HPF NONE SEEN [facility] Urine Calcium Oxalate Crystals RARE [facility] Urine Culture Reflexed YES [facility] Urine Occult Blood LARGE NEGATIVE [facility] Urine Other Casts NONE SEEN #/LPF NONE SEEN [facility] Urine Other Crystals Seen #/HPF None Seen [facility] Urine RBC 20-50 #/HPF 0-2 [facility] Urine Squamous Epithelial Cells FEW #/LPF NONE/RARE [facility] Urine WBC 0-2 #/HPF NONE SEEN [facility] Platelet mean volume Auto (B ld) [Entitic vol]on 01-25-2024 Platelet mean volume (Bld) [Entitic vol] 10.2 fL 9.5-13.5 [facility] Platelets Auto (Bld) [#/Vol] on 01-25-2024 Platelets (Bld) [#/Vol] 249 10 3/uL 150-450 [facility] RBC Auto (Bld) [#/Vol]on RBC (Bld) [#/Vol] 4.73 10 6/uL 4.20-5.40 [facility] Serum or plasma albumin/glob ulin mass ratioon 01-25-2024 Albumin/Globulin [Mass ratio] 1.2 {ratio} [facility] Serum or plasma anion gap de terminationon 01-25-2024 Anion gap [Moles/Vol] 10.4 mmol/L [facility] Estimated glomerular filtrat ion rate (GFR) non- Americanon 10-23-2023 GFR/1.73 sq M.predicted among non-blacks MDRD (S/P/Bld) [Vol rate/Area] mL/min/{1.73_m2} >=60 [facility] Laboratory - Chemistry and C hemistry - challengeon 10-23-2023 Calcium [Mass/Vol] 9.4 mg/dL 8.5-10.1 [facility] Chloride [Moles/Vol] 106 mmol/L 98-107 [facility] CO2 [Moles/Vol] 29.6 mmol/L 21.0-32.0 [facility] Creatinine [Mass/Vol] 0.80 mg/dL 0.55-1.02 [facility] GFR/1.73 sq M.predicted MDRD (S/P/Bld) [Vol rate/Area] mL/min/{1.73_m2} >=60 [facility] Glucose [Mass/Vol] 81 mg/dL 74-106 [facility] Potassium [Moles/Vol] 3.8 mmol/L 3.5-5.1 [facility] Sodium [Moles/Vol] 142 mmol/L 136-145 [facility] Urea nitrogen [Mass/Vol] 17.0 mg/dL 7.0-18.0 [facility] Urea nitrogen/Creatinine [Mass ratio] 21.2 mg/mg [facility] No Panel Informationon 10-22 Troponin I High Sensitivity <4.0 pg/mL 4.0-51.3 [facility] Comment on above: CUT-OFF POINTS HAVE BEEN [...] terminationon 10-23-2023 Anion gap [Moles/Vol] 10.2 mmol/L [facility] MG MAMM SCREEN 3D ANNA CADon 05-31-2022 MG MAMM SCREEN 3D ANNA CAD Patient: TRENT BO Exam Date: 05/31/2022 : 1965 Gender:F Ordering : DR MIRYAM GUTHRIE D.O. Admission #: [id number] Family : Order #: [id number] CLICK HERE TO VIEW EXAM RADIOLOGY REPORT [...] leukemia cancer at age 80. LOCATION: [facility] BREAST COMPOSITION: Heterogeneously dense,which may obscure small [...] M.D. on 05/31/2022 at 16:00 Normal [facility] VC INJ SCL ROBERT TESTING MANAGER VEINSon 1 VC INJ SCL ROBERT TESTING MANAGER VEINS Patient: TRENT BO Exam Date: 05/23/2022 : 1965 Gender:F Ordering : DR ANAHI MCNULTY M.D. Admission #: [id number] Family : Order #: [id number] CLICK HERE TO VIEW EXAM RADIOLOGY REPORT PROCEDURE: VEIN CENTER INJECTION SCLEROSING SOLUTION MULTIPLE VEINS SAME COMPARISON: VC INJ SCL ROBERT TESTING MANAGER VEINS, 05/18/2022. INDICATIONS: Pain co-occurrent and [...] Mcnulty MD on 05/23/2022 at 13:35 Normal [facility] VC INJ SCL ROBERT TESTING MANAGER VEINSon 1 VC INJ SCL ROBERT TESTING MANAGER VEINS Patient: TRENT BO Exam Date: 05/18/2022 : 1965 Gender:F Ordering : DR ANAHI MCNULTY M.D. Admission #: [id number] Family : Order #: [id number] CLICK HERE TO VIEW EXAM RADIOLOGY REPORT [...] Mcnulty MD on 05/18/2022 at 13:11 Normal [facility] VC CONSULT FOLLOWUPon 2021 VC CONSULT FOLLOWUP Patient: SPENCER BO Exam Date: 05/13/2022 : 1965 Gender:F Ordering : DR ANAHI MCNULTY M.D. Admission #: [id number] Family : Order #: [id number] CLICK HERE TO VIEW EXAM RADIOLOGY REPORT [...] Mcnulty MD on 05/13/2022 at 12:57 Normal [facility] VC EXT VENOUS RT LIMITEDon 0 05-13-2022 VC EXT VENOUS RT LIMITED Patient: TRENT BO Exam Date: 05/13/2022 : 1965 Gender:F Ordering : DR ANAHI MCNULTY M.D. Admission #: [id number] Family : Order #: [id number] CLICK HERE TO VIEW EXAM RADIOLOGY REPORT [...] MD on 05/13/2022 at 12:55 Normal [facility] VC INJ FOAM SCLERO W US MLTI on 05-09-2022 VC INJ FOAM SCLERO W US MLTI Patient: TRENT BO Exam Date: 05/09/2022 : 1965 Gender:F Ordering : DR ANAHI MCNULTY M.D. Admission #: [id number] Family : Order #: [id number] CLICK HERE TO VIEW EXAM RADIOLOGY REPORT [...] and (more content not included)... Normal [facility] VC CONSULT FOLLOWUPon 2021 VC CONSULT FOLLOWUP Patient: SPENCER BO. Exam Date: 05/02/2022 : 1965 Gender:F Ordering : DR ANAHI MCNULTY M.D. Admission #: [id number] Family : Order #: [id number] CLICK HERE TO VIEW EXAM RADIOLOGY REPORT [...] physical exam and consultation Dictated by: Jayy Blel M.D. on 05/02/2022 at 13:07 Approved by: Jayy Bell M.D. on 05/02/2022 at 13:15 Normal [facility] VC EXT VENOUS LT LIMITEDon 0 05-02-2022 VC EXT VENOUS LT LIMITED Patient: TRENT BO Exam Date: 05/02/2022 : 1965 Gender:F Ordering : DR ANAHI MCNULTY M.D. Admission #: [id number] Family : Order #: [id number] CLICK HERE TO VIEW EXAM RADIOLOGY REPORT [...] Bell M.D. on 05/02/2022 at 13:07 Normal [facility] VC INJ FOAM SCLERO W US MLTI on 04-26-2022 VC INJ FOAM SCLERO W US MLTI Patient: TRENT BO Exam Date: 04/26/2022 : 1965 Gender:F Ordering : DR ANAHI MCNULTY M.D. Admission #: [id number] Family : Order #: [id number] CLICK HERE TO VIEW EXAM RADIOLOGY REPORT [...] GSV, (more content not included)... Normal [facility] VC CONSULT FOLLOWUPon 2021 VC CONSULT FOLLOWUP Patient: SPENCER BO. Exam Date: 04/19/2022 : 1965 Gender:F Ordering : DR ANAHI MCNULTY M.D. Admission #: [id number] Family : Order #: [id number] CLICK HERE TO VIEW EXAM RADIOLOGY REPORT [...] Mcnulty MD on 04/19/2022 at 13:56 Normal [facility] VC EXT VENOUS RT LIMITEDon 0 04-19-2022 VC EXT VENOUS RT LIMITED Patient: TRENT BO Exam Date: 04/19/2022 : 1965 Gender:F Ordering : DR ANAHI MCNULTY M.D. Admission #: [id number] Family : Order #: [id number] CLICK HERE TO VIEW EXAM RADIOLOGY REPORT [...] Mcnulty MD on 04/19/2022 at 13:24 Normal [facility] VC ENDOVENOUS ABL 1ST V RTon 04-12-2022 VC ENDOVENOUS ABL 1ST V RT Patient: TRENT BO Exam Date: 04/12/2022 : 1965 Gender:F Ordering : DR ANAHI MCNULTY M.D. Admission #: [id number] Family : Order #: [id number] CLICK HERE TO VIEW EXAM RADIOLOGY REPORT [...] The total [place] of Joules delivered was 36982. The laser was active for 146 seconds [...] Mcnulty MD on 04/12/2022 at 13:30 Normal [facility] VC CONSULT FOLLOWUPon 2021 VC CONSULT FOLLOWUP Patient: SPENCER BO. Exam Date: 03/29/2022 : 1965 Gender:F Ordering : DR ANAHI MCNULTY M.D. Admission #: [id number] Family : Order #: [id number] CLICK HERE TO VIEW EXAM RADIOLOGY REPORT [...] Bell M.D. on 03/29/2022 at 14:07 Normal [facility] VC EXT VENOUS LT LIMITEDon 0 03-29-2022 VC EXT VENOUS LT LIMITED Patient: TRENT BO Exam Date: 03/29/2022 : 1965 Gender:F Ordering : DR ANAHI MCNULTY M.D. Admission #: [id number] Family : Order #: [id number] CLICK HERE TO VIEW EXAM RADIOLOGY REPORT [...] M.D. on 03/29/2022 at 14:02 Normal [facility] VC ENDOVENOUS ABL 1ST V LTon 03-22-2022 VC ENDOVENOUS ABL 1ST V LT Patient: TRENT BO Exam Date: 03/22/2022 : 1965 Gender:F Ordering : DR ANAHI MCNULTY M.D. Admission #: [id number] Family : Order #: [id number] CLICK HERE TO VIEW EXAM RADIOLOGY REPORT [...] Mcnulty MD on 03/22/2022 at 14:03 Normal [facility] VC CONSULT FOLLOWUPon 2021 VC CONSULT FOLLOWUP Patient: SPENCER BO Exam Date: 02/25/2022 : 1965 Gender:F Ordering : DR ANAHI MCNULTY M.D. Admission #: [id number] Family : Order #: [id number] CLICK HERE TO VIEW EXAM RADIOLOGY REPORT [...] Mcnulty MD on 02/25/2022 at 14:12 Normal [facility] VC EXT VENOUS RT LIMITEDon 0 02-25-2022 VC EXT VENOUS RT LIMITED Patient: TRENT BO Exam Date: 02/25/2022 : 1965 Gender:F Ordering : DR ANAHI MCNULTY M.D. Admission #: [id number] Family : Order #: [id number] CLICK HERE TO VIEW EXAM RADIOLOGY REPORT [...] Mcnulty MD on 02/25/2022 at 14:03 Normal [facility] VC CONSULT FOLLOWUPon 2021 VC CONSULT FOLLOWUP Patient: SPENCER BO Exam Date: 02/07/2022 : 1965 Gender:F Ordering : DR ANAHI MCNULTY M.D. Admission #: [id number] Family : Order #: [id number] CLICK HERE TO VIEW EXAM RADIOLOGY REPORT [...] MD on 02/07/2022 at 12:26 Normal [facility] VC EXT VENOUS RT LIMITEDon 0 02-07-2022 VC EXT VENOUS RT LIMITED Patient: TRENT BO Exam Date: 02/07/2022 : 1965 Gender:F Ordering : DR ANAHI MCNULTY M.D. Admission #: [id number] Family : Order #: [id number] CLICK HERE TO VIEW EXAM RADIOLOGY REPORT [...] Mcnulty MD on 02/07/2022 at 12:06 Normal [facility] VC CONSULT FOLLOWUPon 2021 VC CONSULT FOLLOWUP Patient: SPENCER BO Exam Date: 01/31/2022 : 1965 Gender:F Ordering : DR ANAHI MCNULTY M.D. Admission #: [id number] Family : Order #: [id number] CLICK HERE TO VIEW EXAM RADIOLOGY REPORT [...] Bell M.D. on 01/31/2022 at 15:59 Normal [facility] VC EXT VENOUS RT LIMITEDon 0 01-31-2022 VC EXT VENOUS RT LIMITED Patient: TRENT BO. Exam Date: 01/31/2022 : 1965 Gender:F Ordering : DR ANAHI MCNULTY M.D. Admission #: [id number] Family : Order #: [id number] CLICK HERE TO VIEW EXAM RADIOLOGY REPORT [...] Bell M.D. on 01/31/2022 at 15:40 Normal [facility] VC ENDOVENOUS ABL 1ST V RTon 01-25-2022 VC ENDOVENOUS ABL 1ST V RT Patient: TRENT BO Exam Date: 01/25/2022 : 1965 Gender:F Ordering : DR ANAHI MCNULTY M.D. Admission #: [id number] Family : Order #: [id number] CLICK HERE TO VIEW EXAM RADIOLOGY REPORT [...] 36 cm from the entry 10 cm [id number] to 3 cm below the saphenofemoral junction. [...] Bell M.D. on 01/25/2022 at 14:30 Normal [facility] VC COMP CONSULTATIONon 12-23 VC COMP CONSULTATION Patient: KALEE BO Exam Date: 12/23/2021 : 1965 Gender:F Ordering : DR AYSE PRECIADO M.D. 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 The patient's symptoms are relieved by rest, [...] Mcnulty MD on 12/23/2021 at 13:56 Normal [facility] VC VENOUS REFLUX ANNA LMTon 0 12-23-2021 VC VENOUS REFLUX ANNA LMT Patient: TRENT BO Exam Date: 12/23/2021 : 1965 Gender:F Ordering : DR AYSE PRECIADO M.D. Admission #: [id number] Family : Order #: [id number] CLICK HERE TO VIEW EXAM RADIOLOGY REPORT [...] area of thrombus. Deep venous reflux visualized. Collar Stitcher: Dist/med calf 4.2 mm, 3.8s. Dist calf [...] MD on 12/23/2021 at 12:48 Normal [facility] SHANIA DOP LEG LTon 12-14-19 22 [place] [...] by: JAYY BELL Date: 2021-12-13 12:41 Normal [facility] Vital Signs Date Time Vital Sign Value Performing Clinician Faci lity 02-01-2024 14:32-0400 Body height 165.1 cm [facility] 02-01-2024 14:32-0400 Body mass index (BMI) [Ratio] 34.6 kg/m2 [facility] 02-01-2024 14:32-0400 Body weight 94.34 kg [facility] 02-01-2024 14:32-0400 Diastolic blood pressure 75 mm[Hg] [facility] 02-01-2024 14:32-0400 Heart rate 63 /min [facility] 02-01-2024 14:32-0400 Systolic blood pressure 121 mm[Hg] [facility] 11-16-2023 14:56-0400 Body height 165.1 cm MD Ayse Preciado Work Phone: [facility] 11-16-2023 14:56-0400 Body mass index (BMI) [Ratio] 34.7 kg/m2 MD Ayse Preciado Work Phone: [facility] 11-16-2023 14:56-0400 Body weight 94.51 kg MD Ayse Preciado Work Phone: [facility] 11-16-2023 14:56-0400 Diastolic blood pressure 81 mm[Hg] MD Ayse Preciado Work Phone: [facility] 11-16-2023 14:56-0400 Heart rate 70 /min MD Ayse Preciado Work Phone: [facility] 11-16-2023 14:56-0400 Systolic blood pressure 131 mm[Hg] MD Ayse Preciado Work Phone: [facility] 10-23-2023 14:13-0400 Body height 165.1 cm MD Ayse Preciado Work Phone: [facility] 10-23-2023 14:13-0400 Body mass index (BMI) [Ratio] 34.4 kg/m2 MD Ayse Preciado Work Phone: [facility] 10-23-2023 14:13-0400 Body weight 94 kg MD Ayse Preciado Work Phone: [facility] 10-23-2023 14:13-0400 Diastolic blood pressure 90 mm[Hg] MD Ayse Preciado Work Phone: [facility] 10-23-2023 14:13-0400 Heart rate 62 /min MD Ayse Preciado Work Phone: [facility] 10-23-2023 14:13-0400 Systolic blood pressure 134 mm[Hg] MD Ayse Preciado Work Phone: [facility] Encounters Encounter Date Encounter Type Care Provider Facility Start: 09-03-2024 ambulatory Gurdeep SWEENEY Facility :[facility] Start: 03-19-2024 End: 03-19-2024 ambulatory LUZ LATASHA Not Available Start: 02-22-2024 End: 02-22-2024 ambulatory LUZ LATASHA Not Available Start: 02-19-2024 End: 02-19-2024 ambulatory Gurdeep SWEENEY [place] [place]: 02-19-2024 End: 02-19-2024 Patient encounter procedure Gurdeep SWEENEY [facility] Start: 02-07-2024 End: 02-07-2024 ambulatory Gurdeep SWEENEY Facility:[facility] Start: 02-07-2024 End: 02-07-2024 Patient encounter procedure Gurdeep SWEENEY [facility] Start: 02-01-2024 End: 02-01-2024 ambulatory [facility] Work Phone: Start: 02-01-2024 End: 02-01-2024 Patient encounter procedure [facility] Work Phone: Start: 01-26-2024 ambulatory Gurdeep SWEENEY Facility:[facility] Start: 01-25-2024 Non-patient / Non-visit [facility] Work Phone: Start: 01-25-2024 End: 01-25-2024 ambulatory Gurdeep SWEENEY Facility:[id number] Start: 11-16-2023 End: 11-16-2023 ambulatory MD Ayse Preciado Work Phone: [facility] Work Phone: Start: 11-16-2023 End: 11-16-2023 Patient encounter procedure MD Ayse Preciado Work Phone: [facility] Work Phone: Start: 10-23-2023 End: 10-23-2023 ambulatory Ayse Preciado Facility:[facility] Start: 10-23-2023 End: 10-23-2023 Patient encounter procedure MD Ayse Preciado Work Phone: [facility] Work Phone: Start: 05-31-2022 End: 06-01-2022 [...] Activity Detail Author Start: 02-01-2024 Patient referral [facility] Work Phone: Start: 10-23-2023 EKG 12 channel panel [facility] Patient referral [facility] Work Phone: [facility] Payers Date Payer Category Payer Self-pay 2023 Unknown [id number] 1965 Unknown [id number] 2.16.84 0.1.881611.3.579.2.593 1965 Unknown [id number] 2.16.84 0.1.399862.3.579.2.593 1965 Unknown [id number] 2.16.84 0.1.053196.3.579.2.593 1965 Unknown [id number] 2.16.84 0.1.623640.3.579.2.593 1965 Unknown [id number] 2.16.84 0.1.281036.3.579.2.593 1965 Unknown [id number] 2.16.84 0.1.335176.3.579.2.593 1965 Unknown [id number] 2.16.84 0.1.661850.3.579.2.593 1965 Unknown [id number] 2.16.84 0.1.519756.3.579.2.593 1965 Unknown [id number] 2.16.84 0.1.762940.3.579.2.593 1965 Unknown [id number] 2.16.84 0.1.542359.3.579.2.593 1965 Unknown [id number] 2.16.84 0.1.401852.3.579.2.593 1965 Unknown [id number] 2.16.84 0.1.516853.3.579.2.593 1965 Unknown [id number] 2.16.84 0.1.934795.3.579.2.593 1965 Unknown [id number] 2.16.84 0.1.813147.3.579.2.593 1965 Unknown [id number] 2.16.84 0.1.899976.3.579.2.593 1965 Unknown [id number] 2.16.84 0.1.938587.3.579.2.593 1965 Unknown [id number] 2.16.84 0.1.519657.3.579.2.593 1965 Unknown [id number] 2.16.84 0.1.737510.3.579.2.593 1965 Unknown [id number] 2.16.84 0.1.237422.3.579.2.593 1965 Unknown [id number] 2.16.84 0.1.658568.3.579.2.593 1965 Unknown [id number] 2.16.84 0.1.275785.3.579.2.593 1965 Unknown [id number] 2.16.8 40.1.791192.3.579.2.727 1965 Unknown [id number] 2.16.8 40.1.836733.3.579.2.727 1965 Unknown [id number] 2.16.8 40.1.642999.3.579.2.727 1965 Unknown [id number] 2.16.8 40.1.885949.3.579.2.727 1965 Unknown [id number] 2.16.84 0.1.117409.3.579.2.1259 1965 Unknown [id number] 2.16.84 0.1.548329.3.579.2.1259 1959 Unknown [id number] Unknown [id number] 2.16.8 40.1.878731.3.579.2.531 Social History Date Type Detail Facility Start: 12-16-2020 End: 10-23-2023 Tobacco smoking status NHIS Never smoked tobacco (finding) [facility] Start: 1965 Sex Assigned At Female [facility] Sex Assigned At Female [facility] Hospital Discharge instructions 02-19-2024 Note Date & [...] Up Care 01/29/2024 11:42:41 With:Gurdeep SWEENEY Address[facility] [place] [phone] Business (1) When: Unknown Comments:The stent has [...] decision at any time.Have a great day. [facility] Clinical Note 02-19-2024 Note Date & Type [...] you have a fever over 100 degrees. [facility] Hospital Discharge instructions 02-01-2024 Note Date & Type Note Facility 02-01-2024 Hospital Discharg e instructions Ambulatory OrdersReferral to PILOT Time Frame: 02/01/24, Location: [facility] Work Phone: Evaluation + Plan note Note Date & Type Note Facility Evaluation + Plan note Future Appointments Appointment Date:02/12/2024 08:00:00 AM Scheduled Provider: Location:[facility] Appointment Type:Urology CALL PAT FT Appointment Date:02/19/2024 03:15:00 PM Scheduled Provider: Location:[facility] Appointment Type:Urology FT [facility] Evaluation + Plan note Note Date & Type Note Facility Evaluation + Plan note Future Appointments Appointment Date:09/03/2024 02:30:00 PM Scheduled Provider:Gurdeep SWEENEY MD Location:[facility] Appointment Type:URO Office Visit [facility] Evaluation note Note Date & Type Note Facility Evaluation note Diagnosis Onset Date Epigastric abdominal pain ac [place] HTN (hypertension) acute [facility] Work Phone: Evaluation note Note Date & Type Note Facility Evaluation note Diagnosis Onset Date HTN (hypertension) acute Uterine mass acute [facility] Work Phone: Hospital course Narrative Note Date & Type Note Facility Hospital course Narrative No data available for this section [facility] Hospital Discharge instructions Note Date & Type Note Facility Hospital Discharge instructions No data available for this section [facility] Progress note Note Date & Type Note Facility Progress note No data available for this section [facility] Summary Purpose Family History No [...] AUTHOR AUTHOR'S ORGANIZ ATION 10/27/2023 [facility] DATE CREATED AUTHOR AUTHOR'S ORGANIZ ATION 02/27/2024 [facility] DATE CREATED AUTHOR AUTHOR'S ORGANIZ ATION 03/21/2024 [facility] EPIC Care Teams (unrecognized sec [...] BE BASED ON THE PRIMARY CLINICAL RECORDS. [facility] [employer] [facility]. provides no warranty or guarantee of the accuracy or completeness of information in this document.
[2024-04-11 06:47] LABS: Basophils Percent Auto 0.8 % (0.2-2.0); Eosinophils Absolute Auto 0.2 10^3/uL (0.0-0.7); Eosinophils Percent Auto 3.3 % (0.9-7.0); Hematocrit 36.5 % (36.0-48.0); Hemoglobin 13.1 g/dL (12.0-16.0); Immature Granulocytes Abs Auto 0.01 10^3/uL (0.00-0.03); Immature Granulocytes Pct Auto 0.2 % (0.0-0.5); Lymphocytes Absolute Auto 1.8 10^3/uL (1.2-3.8); Lymphocytes Percent Auto 33.8 % (20.5-60.0); Mean Corpuscular HGB Conc 35.9 g/dL (29.9-35.2); Mean Corpuscular Hemoglobin 29.8 pg (26.7-34.0); Mean Corpuscular Volume 83.1 fL (81.0-99.0); Monocytes Absolute Auto 0.5 10^3/uL (0.3-0.8); Neutrophils Absolute Auto 2.7 10^3/uL (1.4-6.5); Neutrophils Percent Auto 51.9 % (43.0-75.0); Platelet Count 237 10^3/uL (150-450); Red Blood Count 4.39 10^6/uL (4.20-5.40); Red Cell Distribution Width 12.1 % (11.0-15.0); White Blood Count 5.2 10^3/uL (4.0-11.0)
[2024-04-11] MEDS: LACTATED RINGER'S SOLUTION 1,000 ML 50 ML IV (07:12)
[2024-04-11] MEDS: FAMOTIDINE/PF 20 MG/2 ML VIAL IV (07:13)
--- NOTE | 2024-04-11 08:48 | P.ON_ITS ---
Brief Operative Note Date of procedure: 04/11/24 Pre-op diagnosis general: aub, uterine fibroid, enlarged uterus Post-op diagnosis: same as pre-op Procedure: NAME OF PROCEDURE: [ D&c hysteroscopy, dx laparoscopy] PROCEDURE: The patient was taken back to the Operating Room where she was prepped and draped in normal sterile fashion after being placed under general anesthesia without difficulty. She was also placed in the dorsal lithotomy position. A weighted speculum was placed in the patient?s vagina. The anterior lip of the cervix was identified and grasped with a single tooth tenaculum. a cervical polyp was removed using polyp forceps The patient?s uterus was then sounded roughly to [? 8] cm. The patient was then gently dilated using Hegar dilators. The hysteroscope was passed through the patient?s cervix into the uterus. Both ostia were identified. fluffy appearing endometrium. No gross evidence of malignancy, no gross evidence of polyps or fibroids. The hysteroscope was then removed from the uterus. gentle currettage performed until a gritty texture was noted. The endometrial curettings were sent out to pathology. The single tooth tenaculum was then removed from the patient's anterior lip of the cervix where excellent hemostasis was noted. A sponge stick was placed into the patient's vagina. Attention was turned to the patient's abdomen, where a small umbilical incision was made. The fascia was tented using Silas clamps and the fascia was entered sharply. Confirmation of intraabdominal placement of the 10 mm port was confirmed under direct visualization using a laparoscope. The patient's abdomen was then insufflated using CO2 gas with approximately 4 liters. A second port was placed left laterally, this was done under direct visualization with a 5 mm port. Survey of the patient's abdomen demonstrated normal liver and gallbladder. Survey of the patient's pelvic anatomy demonstrated normal appearing rt and lt ovary and tubes as well as enlarged appearing uterus with large multiple fibroids, approx 6&5cm No endometrial implants could be noted, no evidence of any pelvic disease was seen, normal appearing pelvic cavity. All instruments were removed from the patient's abdomen. The patient's abdomen was deinsufflated of CO2 gas. The patient tolerated the procedure well. Sponge stick was removed from the patient's vagina. The patient's infraumbilical fascia was closed using #0 Vicryl on a GI needle. The patient's skin was closed laterally and infraumbilically using 4-0 Vicryl. The patient tolerated the procedure well. Sponge, lap and needle counts were correct x 2. The patient was taken to Recovery Room in stable condition. Anesthesia: FINESSE Surgeon: Juan Antonio Flynn Mold Cutting Machine Operator: Mabel Lancaster Estimated blood loss (mL): 200 Pathology: other (endometrial currettings) Condition: stable Disposition: PACU Urinary Catheter Management Urinary Catheter Management Urethral: Cath placed during this visit: no
[2024-04-11] MEDS: HYDROCODONE/ACET 5-325 MG TABLET 1 TAB PO (09:11)
[2024-04-11] MEDS: KETOROLAC TROMETHAMINE 30 MG/ML VIAL IVP (09:17)
== END 2024-04-11 10:10 | disposition home or self-care (01) ==
PROVIDERS: PCP Family Medicine; Visit Provider Obstetrics & Gynecology
PROC: (CPT 00840; principal; 2024-04-11 07:30)
DX: D25.9 Leiomyoma of uterus, unspecified (principal); N93.9 Abnormal uterine and vaginal bleeding, unspecified; N84.1 Polyp of cervix uteri; N72 Inflammatory disease of cervix uteri; N84.0 Polyp of corpus uteri; I10 Essential (primary) hypertension; K21.9 Gastro-esophageal reflux disease without esophagitis; Z86.718 Personal history of other venous thrombosis and embolism
CPT/HCPCS: 00840; 00952; 49320; 58558; 36415; 85025; 88305; J1100; J1885; J2405; J2704; J3010

== ENCOUNTER 2024-06-04 13:58 | Outpatient (OUT) | payer OTHER, SELFPAY ==
--- NOTE | 2024-06-04 14:00 | MM_ITS ---
Patient Name: TRENT BO MR#: [id number] : 1965 Exam Date: 06/04/2024 Ordering Doctor: DR Juan Antonio Flynn . RADIOLOGY REPORT PROCEDURE: MM TOMOSYNTHESIS SCREENING BI COMPARISON: MG MAMM SCREEN 3D ANNA CAD, 05/31/2022. MM TOMOSYNTHESIS SCREENING BI, 06/01/2023. INDICATIONS: Screening Calculator Name NCI Breast Cancer Risk Assessment Tool 5 Year Breast Cancer Risk 1.50% Lifetime Breast Cancer Risk 8.30% Personal Breast Cancer No Personal Ovarian Cancer No Treatments None Family Cancers Grandmother-maternal with leukemia cancer at age ~80. LOCATION: [facility] BREAST COMPOSITION: The breasts are heterogeneously dense,which may obscure small masses. FINDINGS: DIAGNOSTIC CATEGORY 2--BENIGN FINDING. NO CHANGE FROM COMPARISON. Scattered benign-appearing calcifications are present. RIGHT BREAST: No significant suspicious finding. LEFT BREAST: No significant suspicious finding. RECOMMENDATIONS: ROUTINE MAMMOGRAM AND CLINICAL EVALUATION IN 12 MONTHS. PLEASE NOTE: A NORMAL MAMMOGRAM DOES NOT EXCLUDE THE POSSIBILITY OF BREAST CANCER. A CLINICALLY SUSPICIOUS PALPABLE LUMP SHOULD BE BIOPSIED. Dictated by: Aguila Perez MD on 06/04/2024 at 15:05 Approved by: Aguila Perez MD on 06/04/2024 at 15:09
--- OUTSIDE RECORDS SUMMARY | 2024-06-04 14:13 | XMS_ITS | CCD ---
Author Organization [facility] CliniSyar Care Team Providers Care Balance Staff Staker Name Role Phone HAMLET, DR ANAHI Reich [...] Santos Consulting Unavailable PRECIADO, DR AYSE Esposito Admmagali Unavailable PRECIADO, DR AYSE Esposito Attending Unavailable [...] ANAHI Reich Consulting Unavailable PRECIADO, DR AYSE Felix Unavailable PRECIADO, DR AYSE Esposito Attending Unavailable [...] Unavailable WEST, DR ANAHI Reich Consulting Unavailable MD Ayse Preciado Primary Care Provider [phone] MD Ayse Preciado Attending Provider [phone] AYSE PRECIADO Primary Care Physician Gurdeep SWEENEY Attending Unavailable Gurdeep SWEENEY Attending Unavailable Gurdeep SWEENEY Admitting Unavailable Gurdeep SWEENEY Attending Unavailable Gurdeep SWEENEY Referring Unavailable Gurdeep SWEENEY Referring Unavailable Gurdeep SWEENEY Attending Unavailable MD Ayse Preciado Primary Care Provider DO Juan Antonio Flynn Attending Provider Juan Antonio Flynn Admitting Unavailable Juan Antonio Flynn Attending Unavailable Ayse Preciado Primary Care Unavailable Ayse Preciado Primary Care Unavailable Ayse Preciado Attending Unavailable Ayse Preciado Admitting Unavailable Allergies Allergy Classification Reported Allergen(s) Allergy Type Date of Onset Reaction(s) Facility Sulfonamides (antibiotic) (1 source) Sulfonamides (Antibiotic); Translations: [sulfa drugs] Drug Allergy Eruption of skin (disorder) [facility] (2 sources) Sulfamethoxazole / Trimethoprim Drug Allergy [facility] (4 sources) Sulfamethoxazole; Translations: [sulfamethoxazole] Drug Allergy 11-16-19 [facility] (4 sources) Sulfonamides (Antibiotic); Translations: [Sulfa (Sulfonamide Antibiotics)] Allergy to substance 11-16-19 [facility] (4 sources) Trimethoprim; Translations: [trimethoprim] Drug Allergy 11-16-19 [facility] (2 sources) Sulfonamides (Antibiotic); Translations: [sulfa drugs] Drug allergy Eruption of skin (disorder) [facility] Medications Current Medications Medication Drug Class(es) Dates Sig (Normalized) Sig (Original) amLODIPine 10 mg oral tablet (7 sources) Dihydropyridine Calcium Channel Jose Start: 02-01-2024 End: 04-08-2024 take 10 mg by mouth once daily Amlodipine Active 10 MG PO Daily April 08, 2024 11:40am Start: 12-15-2023 End: 02-01-2024 take 5 mg by mouth once daily Amlodipine Discontinued 5 MG PO Daily January 10, 2024 8:42am February 01, 2024 2:59pm ciprofloxacin 500 mg oral tablet (2 sources) Quinolone Antimicrobial Start: 01-29-2024 Cipro 500 mg Tab See Instructions, Take 1 tab day prior to procedure and 1 tab day of procdure - afterwards, # 2 tab(s), Refills(s) 0, Pharmacy: [facility]/pharmacy #[id number] Start Date: 01/29/24 Status: Ordered fluticasone furoate 0.0275 mg/actuat metered dose nasal spray (3 sources) Corticosteroid Start: 10-18-2023 take 2 spray(s) nasal route once daily, then take 1 spray(s) nasal route once daily Fluticasone Furoate (Flonase Sensimist) 27.5 mcg/actuation spray,suspension Active 2 SPRAY INTRANASAL Daily October 18, 2023 1:00am [employer] sprays (1 spray in each nostril) Nasally Once a day; Note: Source Status: Start; Refills: 1; Provider: Samuel Madsen (12 sources) Angiotensin 2 Receptor Jose Start: 03-11-2024 take 1 tablet by mouth once daily Losartan Active 0 .ROUTE .COMPLEX March 11, 2024 9:17am TAKE 1 TABLET BY MOUTH EVERY DAY Start: 11-16-2023 End: 03-11-2024 take 50 mg by mouth once daily Losartan Discontinued 5 0 MG PO daily December 11, 2023 9:50am March 11, 2024 9:17am Start: 10-23-2023 End: 11-16-2023 take 25 mg by mouth once daily Losartan Discontinued 2 5 MG PO Daily November 14, 2023 7:40pm November 16, 2023 3:11pm Problems Active Problems Problem Classification Problem Date Documented Da te Episodic/Chronic Allergic reactions (2 sources) Atopic dermatitis 11-23-2020 Chronic Calculus of urinary tract (3 sources) Kidney stone; Translations: [Calculus of kidney] Onset: 4 Episodic Deficiency and other anemia (2 sources) Iron deficiency anemia 11-24-2020 Episodic Essential hypertension (7 sources) Hypertensive disorder; Translations: [Essential (primary) hypertension] Onset: 4 10-30-2023 Chronic Nutritional deficiencies (2 sources) Iron deficiency 11-23-2020 Episodic Other female genital disorders (2 sources) Mass of uterus; Translations: [Other specified noninflammatory disorders of uterus] 02-01-2024 Episodic Other female genital disorders (2 sources) Other specified noninflammatory disorders of uterus; Translations: [...] [Varicose veins of bilateral lower limbs] Onset: 2 Episodic Past or Other Problems Problem Classification Problem Date Documented Da te Episodic/Chronic Abdominal pain (5 sources) Epigastric pain; Translations: [Epigastric pain] Onset: 10-23-2023 10-23-2023 Episodic Other connective tissue disease (4 sources) Other specified soft tissue disorders; Translations: [OTHER SPEC SOFT TISSUE DISORDERS] Onset: 12-13-2021 Episodic Results Test Name Value Interpretation Reference Range Facility Basophils Auto (Bld) [#/Vol] on 04-11-2024 Basophils (Bld) [#/Vol] 0.0 10 3/uL 0.0-0.1 [facility] Basophils/100 WBC Auto (Bld) on 04-11-2024 Basophils/100 WBC (Bld) 0.8 % 0.2-2.0 [facility] Eosinophils/100 WBC Auto (Bl d)on 04-11-2024 Eosinophils/100 WBC (Bld) 3.3 % 0.9-7.0 [facility] Erythrocyte distribution wid th Auto (RBC) [Ratio]on 04-11-2024 Erythrocyte distribution width (RBC) [Ratio] 12.1 % 11.0-15.0 [facility] Hematocrit Auto (Bld) [Volum e fraction]on 04-11-2024 Hematocrit (Bld) [Volume fraction] 36.5 % 36.0-48.0 [facility] Hemoglobin [Mass/volume] in Bloodon 04-11-2024 Hemoglobin (Bld) [Mass/Vol] 13.1 g/dL 12.0-16.0 [facility] Braden 04-11-2024 L Specimen: [id number] eceived: 04/11/247901 Status: ERIC Aguirre Num: [id number] Spec Type: Surgical Subm Dr: Juan Antonio Flynn Tissues: A Cervical Polyp (CERV POLYP) B Endometrium - Curettings (ENDOM CUR) Procedures: HE/4, Gross/Micro L4/2 Age/ Patient Sex Location Account Attending Physician FernandoLiz Gallegos 59/F [facility] [id number] Juan Antonio Flynn SPEC NUM: [id number] RECD: 04/11/24 STATUS: ERIC AGUIRRE NUM: [id number] MAURY: 04/11/24- SUBM DR: Juan Antonio Flynn ENTERED: 04/11/24 [facility] DR: Maciej,Lab SPEC TYPE: Surgical DEPT: NAVYA BENJAMIN ENTERED BY: [id number] RECV BY: [id number] ORDERED: HE/4, Gross/Micro L4/2 ORDERED: HE/4, Gross/Micro L4/2 Pathological Diagnosis A, cervical polyp, excision: -Large benign endocervical mucosal polyp with moderately associated chronic inflammation / chronic cervicitis -No evidence of malignancy or glandular dysplasia B, endometrial curettings: -Multiple strips of inactive type endometrium, including several biopsy fragments of benign endometrial polyp with associated cystic atrophy, otherwise without hyperplasia or atypia -Incidental small admixed portions of endocervical and the ectocervical epithelial elements without dysplasia Clinical Information Pelvic pain, uterine mass, uterine leiomyoma Gross Description Part A is received in formalin with the patient's name and cervical polyp and consists of 2 phoenix-candelaria fibrous polypoid shaped soft tissue fragments measuring 1.1 and 1.5 cm in greatest dimension. The specimen is submitted in toto in cassette A1 Part B is received in formalin with the patient's name and endometrial curettings and consists of multiple hemorrhagic mucoid soft tissue fragments measuring 2.0 x 1.0 x 0.4 cm -------- Specimen: [id number] Received: 04/11/24 Status: ERIC Aguirre Num: [id number] Spec Type: Surgical Subm Dr: Juan Antonio Flynn Tissues: A Cervical Polyp (CERV POLYP) B Endometrium - Curettings (ENDOM CUR) Procedures: Jan MART/Micro L4/2 -------- Patient: Liz King [id number] (Continued) -------- Specimen: [id number] Received: 04/11/24 (Continued) Gross Description (Continued) Signed (signature on file) Floyd Ochoa MD 04/19/24 1050 -------- Specimen: [id number] Received: 04/11/24 Status: ERIC Aguirre Num: [id number] Spec Type: Surgical Subm Dr: Juan Antonio Flynn Tissues: A Cervical Polyp (CERV POLYP) B Endometrium - Curettings (ENDOM CUR) Procedures: LUJan Tineo/Perez L4/2 -------- Patient: Liz King [id number] (Continued) -------- Specimen: [id number] Received: 04/11/24 (Continued) Gross Description (Continued) in aggregate. The specimen is entirely submitted in cassette B1. Microscopic Description Microscopic examinations are performed supporting the above interpretation CPT Codes 03148L1 -------- -------- Specimen: [id number] Received: 04/11/24 Status: ERIC Aguirre Num: [id number] Spec Type: Surgical Subm Dr: Juan Antonio Flynn Tissues: A Cervical Polyp (CERV POLYP) B Endometrium - Curettings (ENDOM CUR) Procedures: HE/4, Gross/Micro L4/2 -------- Patient: Liz King [id number] (Continued) -------- Signed (signature on file) Chin-Jimmy Ochoa MD 04/19/24 1050 Normal [facility] Laboratory - Hematology and Cell countson 04-11-2024 Immature granulocytes/100 WBC (Bld) 0.2 % 0.0-0.5 [facility] Leukocytes [#/volume] correc aubrey for nucleated erythrocytes in Blood by Automated counon 04-11-2024 WBC corrected for nucl RBC Auto (Bld) [#/Vol] 5.2 10 3/uL 4.0-11.0 [facility] Lymphocytes Auto (Bld) [#/Vo l]on 04-11-2024 Lymphocytes (Bld) [#/Vol] 1.8 10 3/uL 1.2-3.8 [facility] Lymphocytes/100 WBC Auto (Bl d)on 04-11-2024 Lymphocytes/100 WBC (Bld) 33.8 % 20.5-60.0 [facility] MCH Auto (RBC) [Entitic mass ]on 04-11-2024 MCH (RBC) [Entitic mass] 29.8 pg 26.7-34.0 [facility] MCHC Auto (RBC) [Mass/Vol]on 04-11-2024 MCHC (RBC) [Mass/Vol] 35.9 g/dL High 29.9-35.2 [facility] MCV Auto (RBC) [Entitic vol] on 04-11-2024 MCV (RBC) [Entitic vol] 83.1 fL 81.0-99.0 [facility] Monocytes Auto (Bld) [#/Vol] on 04-11-2024 Monocytes (Bld) [#/Vol] 0.5 10 3/uL 0.3-0.8 [facility] Monocytes/100 WBC Auto (Bld) on 04-11-2024 Monocytes/100 WBC (Bld) 10.0 % 1.7-12.0 [facility] Neutrophils Auto (Bld) [#/Vo l]on 04-11-2024 Neutrophils (Bld) [#/Vol] 2.7 10 3/uL 1.4-6.5 [facility] Neutrophils/100 WBC Auto (Bl d)on 04-11-2024 Neutrophils/100 WBC (Bld) 51.9 % 43.0-75.0 [facility] No Panel Informationon 04-11 Eosinophils # (Auto) 0.2 10 3/uL 0.0-0.7 [facility] Immature Granulocyte # (Auto) 0.01 10 3/uL 0.00-0.03 [facility] Platelet mean volume Auto (B ld) [Entitic vol]on 04-11-2024 Platelet mean volume (Bld) [Entitic vol] 10.0 fL 9.5-13.5 [facility] Platelets Auto (Bld) [#/Vol] on 04-11-2024 Platelets (Bld) [#/Vol] 237 10 3/uL 150-450 [facility] RBC Auto (Bld) [#/Vol]on RBC (Bld) [#/Vol] 4.39 10 6/uL 4.20-5.40 [facility] Inpatient Patient Summaryon 02-19-2024 Inpatient Patient Summary Inpatient Patient Summary [address] [address] Clinical Summary Person Information Name: LIZ KING Age: 59 Years : 1965 Sex: Female PCP: AYSE PRECIADO MD Marital Status: Race: White Ethnicity: Non- or Language: Icelandic Visit Id: Visit Reason: KIDNEY STONE Speciality: Acuity: Enc Type: Outpatient Med Service: Surgery Arrival: 02/19/2024 14:32:49 Discharge: Dispo Type: Address: [address] [place] [phone] Provider Notes: Diagnosis: Problems Active Pilar cysts [...] MD Follow up: With: Address: When: Gurdeep CRAWF[address], [address], [place] [id number] Business (1) Comments: The stent has now [...] Cystoscopy with Stent Removal Discharge Instructions (Custom) [facility] Main OR Intraoperative Recor don 02-19-2024 Main OR Intraoperative Record Main OR Intraoperative Record IntraOp Document Type FTURO Summary Primary Physician: Gurdeep SWEENEY MD Finalized Date/Time: 02/19/24 15:19:48 Pt. Name: LIZ KING /Sex: 1965 Female Med Rec #: [id number] Physician: Gurdeep SWEENEY MD Financial #: [id number] Pt. Type: O Room/Bed: / Admit/Disch: 02/19/24 14:32:49 - Institution: Case Times FTURO Entry 1 Patient Times In Room 02/19/24 15:10:00 Out Room 02/19/24 15:19:00 Procedure Times Start 02/19/24 15:16:00 Stop 02/19/24 15:16:00 Anesthesia Times Last Modified By: Ludy Dietrich 02/19/24 15:19:36 Case Attendance FTURO Entry 1 Entry 2 Entry 3 Case Attendee Gurdeep SWEENEY MD, Kelsie E McClain MANAGER [employer], Jennifer Role Performed Surgeon - Primary A&P Technician - Primary Scrub - Primary Time In 02/19/24 15:10:00 02/19/24 15:10:00 02/19/24 15:10:00 Time Out 02/19/24 15:19:00 02/19/24 15:19:00 02/19/24 15:19:00 Procedure CYSTOSCOPY LOCAL WITH CYSTOSCOPY LOCAL WITH CYSTOSCOPY LOCAL WITH STENT REMOVAL(Left) STENT REMOVAL(Left) STENT REMOVAL(Left) Comments Last Modified By: Ludy Dietrich Kelsie E Burgderfer, Kelsie E 02/19/24 15:19:39 02/19/24 15:19:39 02/19/24 15:19:39 [...] Dietrich 02/19/24 15:19 Ludy Dietrich 02/19/24 15:19 Normal [facility] Main OR Preoperative Recordo n 02-19-2024 Main OR Preoperative Record Main OR Preoperative Record Holding Area Document Type FTURO Summary Primary Physician: Gurdeep SWEENEY MD Finalized Date/Time: 02/19/24 14:49:34 Pt. Name: LIZ KING /Sex: 1965 Female Med Rec #: [id number] Physician: Gurdeep SWEENEY MD Financial #: [id number] Pt. Type: O Room/Bed: / Admit/Disch: 02/19/24 14:32:49 - Institution: Case Times Holding FTURO Pre-Care Text: Verifies consent for planned procedure, identifies individual values and wishes concerning care, includes family members in perioperative teaching Secures patient's records' belongings, and valuables, maintains patient's dignity and privacy, and maintains patient confidentiality Entry 1 In Holding 02/19/24 14:46:00 Outcomes Met? Yes Last Modified By: TORREY Castelan RN, Ruthann 02/19/24 14:46:31 Post-Care Text: The patient participates [...] TORREY Castelan RN, Ruthann 02/19/24 14:49 Normal [facility] Operative Reporton Operative Report Operative Report Patient: LIZ KING Age: 59 years Sex: Female : 1965 [...] urine/metabolic workup prior to that visit.. Normal [facility] Comment on above: Result Comment: Elec tronically Signed By: Gurdeep SWEENEY MD\.br\Date and Time Signed: 02/19/24 15:22 EDT Outpatient Surgery Discharge Instructionon 02-19-2024 Outpatient Surgery Discharge Instruction Outpatient Surgery Discharge Instruction [place] [id number] Patient Discharge Instructions PERSON INFORMATION Name: LIZ KING Date of : 1965 Current Date: 02/19/2024 15:21:45 PHYSICIANS Admitting Physician: Gurdeep SWEENEY MD Comment: Discharge Diagnosis: LIZ KING has been given the following list of follow-up instructions, prescriptions, and patient education materials: IF UNABLE TO CONTACT YOUR PHYSICIAN AND YOU FEEL IT IS AN EMERGENCY, GO TO THE NEAREST EMERGENCY ROOM OR CALL 911 Follow up: With: Address: When: Gurdeep CRAWFORD, [address], [facility] [address] [place] [address] [facility] (1) Comments: The stent has now been [...] you have a fever over 100 degrees. FERNANDO Man JOYCE F, have received the attached patient education materials/instructions and have verbalized understanding: May we do a follow up call? Yes No I was present when discharge instructions were given Patient Signature Date Clinican/Nurse Signature Date You may receive a survey from [employer] asking you to rate your care experience. Your feedback is important and will help us understand what we do well and how we can improve the quality of care we provide to you, your loved ones and our community. It?s an honor to serve you. Thank you for choosing [facility] Normal [facility] Consultation Noteon 02-01-20 24 Consultation Note [id number]#1.00TIFF Normal [facility] Insurance Correspondence Off iceon 01-30-2024 Insurance Correspondence Office [id number]#1.00TIFF Normal [facility] Operative Reporton Operative Report [id number]#1.00TIFF Normal [facility] Ammonium urate crystals dete ction in stone by infrared spectroscopyon 01-25-2024 Ammonium urate crystals Infrared spectroscopy Ql (Stone) TNP . [facility] Basophils Auto (Bld) [#/Vol] on 01-25-2024 Basophils (Bld) [#/Vol] 0.0 10 3/uL 0.0-0.1 [facility] Basophils/100 WBC Auto (Bld) on 01-25-2024 Basophils/100 WBC (Bld) 0.4 % 0.2-2.0 [facility] Calcium bilirubinate measure menton 01-25-2024 Calcium bilirubinate (Stone) [Mass fraction] TNP . [facility] Calcium carbonate (Stone) [M ass fraction]on 01-25-2024 Stone Calcium Carbonate TNP . [facility] Calcium hydrogen phosphate d ihydrate (Stone) [Mass fraction]on 01-25-2024 Stone Calcium Hydrogen Phosphate TNP . [facility] Calcium oxalate dihydrate cr ystals detection in stone by infrared spectroscopyon 01-25-2024 Calcium oxalate dihydrate crystals Infrared spectroscopy Ql (Stone) 40 % . [facility] Calcium oxalate monohydrate crystal detectionon 01-25-2024 Calcium oxalate monohydrate crystals Infrared spectroscopy Ql (Stone) 60 % . [facility] Calcium phosphate measuremen ton 01-25-2024 Calcium phosphate (Stone) [Mass fraction] TNP . [facility] Calculus analysis interpreta tion in stoneon 01-25-2024 Calculus analysis [Interp] TNP . [facility] Calculus analysis [Interp] Comment . [facility] Comment on above: Calculus received we t. Wet calculi must be dried beforeanalysis, which delays reporting of results. Leaving calculiwet (such as water, saline, blood, urine) may lead tochanges in composition. Physician questions regarding Calculi Analysis contactMi[facility] CenterCorp at: [phone]. Calculus analysis with calcu katarina photography interpretation in stoneon 01-25-2024 Calculus analysis with calculus photography [Interp] Comment . [facility] Comment on above: Photograph will foll ow under a separate cover Cellular material measuremen t in stone by estimated (mass/mass)on 01-25-2024 Cellular material Est (Stone) [Mass/Mass] TNP . [facility] Cholesterol [Mass/volume] in Serum or Plasmaon 01-25-2024 Cholesterol [Mass/Vol] TNP . [facility] Composition of stoneon 01-24 Composition Nom (Stone) Comment . [facility] Comment on above: Percentage (Represen ts the % composition) Cystine measurementon 2023 Cystine (Unsp spec) [Moles/Vol] TNP . [facility] Determination of color of ca lculuson 01-25-2024 Color (Stone) Brown . [facility] Eosinophils/100 WBC Auto (Bl d)on 01-25-2024 Eosinophils/100 WBC (Bld) 1.5 % 0.9-7.0 [facility] Erythrocyte distribution wid th Auto (RBC) [Ratio]on 01-25-2024 Erythrocyte distribution width (RBC) [Ratio] 12.5 % 11.0-15.0 [facility] Estimated glomerular filtrat ion rate (GFR) non- Americanon 01-25-2024 GFR/1.73 sq M.predicted among non-blacks MDRD (S/P/Bld) [Vol rate/Area] 57 mL/min/{1.73_m2} Low >=60 [facility] Globulin Calc (S) [Mass/Vol] on 01-25-2024 Globulin (S) [Mass/Vol] 3.5 g/dL [facility] Hematocrit Auto (Bld) [Volum e fraction]on 01-25-2024 Hematocrit (Bld) [Volume fraction] 39.7 % 36.0-48.0 [facility] Hemoglobin [Mass/volume] in Bloodon 01-25-2024 Hemoglobin (Bld) [Mass/Vol] 13.6 g/dL 12.0-16.0 [facility] Laboratory - Chemistry and C hemistry - challengeon 01-25-2024 Albumin [Mass/Vol] 4.2 g/dL 3.4-5.0 [facility] ALP [Catalytic activity/Vol] 87 U/L 46-116 [facility] ALT [Catalytic activity/Vol] 42 U/L 14-59 [facility] AST [Catalytic activity/Vol] 27 U/L 15-37 [facility] Bilirubin [Mass/Vol] 0.4 mg/dL 0.2-1.0 [facility] Calcium [Mass/Vol] 9.4 mg/dL 8.5-10.1 [facility] Chloride [Moles/Vol] 105 mmol/L 98-107 [facility] CO2 [Moles/Vol] 28.5 mmol/L 21.0-32.0 [facility] Creatinine [Mass/Vol] 1.00 mg/dL 0.55-1.02 [facility] GFR/1.73 sq M.predicted MDRD (S/P/Bld) [Vol rate/Area] mL/min/{1.73_m2} >=60 [facility] Glucose [Mass/Vol] 141 mg/dL High 74-106 [facility] Potassium [Moles/Vol] 3.9 mmol/L 3.5-5.1 [facility] Protein [Mass/Vol] 7.7 g/dL 6.4-8.2 [facility] Sodium [Moles/Vol] 140 mmol/L 136-145 [facility] Urea nitrogen [Mass/Vol] 19.0 mg/dL High 7.0-18.0 [facility] Urea nitrogen/Creatinine [Mass ratio] 19.0 mg/mg [facility] Bilirubin Ql (U) Negative NEGATIVE [facility] Glucose (U) [Mass/Vol] Negative NEGATIVE [facility] Ketones Ql (U) Negative NEGATIVE [facility] pH (U) 6.0 [pH] 5.0-9.0 [facility] Specific gravity (U) [Rel density] >=1.030 Abnormal 1.005-1.025 [facility] Urobilinogen Qn (U) 0.2 {Erum'U}/dL 0.2-1.0 [facility] Laboratory - Hematology and Cell countson 01-25-2024 Immature granulocytes/100 WBC (Bld) 0.4 % 0.0-0.5 [facility] Laboratory - Specimen inform ationon 01-25-2024 Appearance (U) CLEAR CLEAR [facility] Color (U) YELLOW YELLOW [facility] Laboratory - Urinalysison Leukocyte esterase Test strip Ql (U) TRACE Abnormal NEGATIVE [facility] Mucus Ql (Urine sed) NONE SEEN NONE SEEN [facility] Nitrite Ql (U) Negative NEGATIVE [facility] Protein Ql (U) 30 mg/dL Abnormal NEG/TRACE [facility] Leukocytes [#/volume] correc aubrey for nucleated erythrocytes in Blood by Automated counon 01-25-2024 WBC corrected for nucl RBC Auto (Bld) [#/Vol] 7.5 10 3/uL 4.0-11.0 [facility] Lymphocytes Auto (Bld) [#/Vo l]on 01-25-2024 Lymphocytes (Bld) [#/Vol] 1.1 10 3/uL Low 1.2-3.8 [facility] Lymphocytes/100 WBC Auto (Bl d)on 01-25-2024 Lymphocytes/100 WBC (Bld) 14.5 % Low 20.5-60.0 [facility] MCH Auto (RBC) [Entitic mass ]on 01-25-2024 MCH (RBC) [Entitic mass] 28.8 pg 26.7-34.0 [facility] MCHC Auto (RBC) [Mass/Vol]on 01-25-2024 MCHC (RBC) [Mass/Vol] 34.3 g/dL 29.9-35.2 [facility] MCV Auto (RBC) [Entitic vol] on 01-25-2024 MCV (RBC) [Entitic vol] 83.9 fL 81.0-99.0 [facility] Measurement of proportion of calculus composed of dried blood (mass/mass)on 01-25-2024 Blood.dried (Stone) [Mass fraction] TNP . [facility] Monocytes Auto (Bld) [#/Vol] on 01-25-2024 Monocytes (Bld) [#/Vol] 0.4 10 3/uL 0.3-0.8 [facility] Monocytes/100 WBC Auto (Bld) on 01-25-2024 Monocytes/100 WBC (Bld) 5.6 % 1.7-12.0 [facility] Neutrophils Auto (Bld) [#/Vo l]on 01-25-2024 Neutrophils (Bld) [#/Vol] 5.9 10 3/uL 1.4-6.5 [facility] Neutrophils/100 WBC Auto (Bl d)on 01-25-2024 Neutrophils/100 WBC (Bld) 77.6 % High 43.0-75.0 [facility] Newberyite crystals detectio n in stone by infrared spectroscopyon 01-25-2024 Newberyite crystals Infrared spectroscopy Ql (Stone) TNP . [facility] No Panel Informationon 01-24 Stone 2,8 Dihydroxyadenine TNP . [facility] Stone Analysis Disclaimer Comment . [facility] Comment on above: Calculi report will follow via computer, mail or courierdelivery. This test was devmichaelo wendy and its performance characteristicsdetermined by [employer]. It has not been cleared or approvedby the Food and Drug Administration.Performed at: [address] [id number] Director: Jessica Morales PhD, Phone: [phone] Stone Bilirubinate TNP . [facility] Stone Calcium Palmitate TNP . [facility] [facility] Calcium Stearate TNP . [facility] Stone Drug or Metabolite TNP . [facility] Stone Other Constituent TNP . [facility] Stone Xanthine TNP . [facility] Eosinophils # (Auto) 0.1 10 3/uL 0.0-0.7 [facility] Immature Granulocyte # (Auto) 0.03 10 3/uL 0.00-0.03 [facility] Urine Bacteria LARGE #/HPF Abnormal NONE SEEN [facility] Urine Calcium Oxalate Crystals RARE [facility] Urine Culture Reflexed YES [facility] Urine Occult Blood LARGE Abnormal NEGATIVE [facility] Urine Other Casts NONE SEEN #/LPF NONE SEEN [facility] Urine Other Crystals Seen #/HPF Abnormal None Seen [facility] Urine RBC 20-50 #/HPF Abnormal 0-2 [facility] Urine Squamous Epithelial Cells FEW #/LPF Abnormal NONE/RARE [facility] Urine WBC 0-2 #/HPF Abnormal NONE SEEN [facility] Platelet mean volume Auto (B ld) [Entitic vol]on 01-25-2024 Platelet mean volume (Bld) [Entitic vol] 10.2 fL 9.5-13.5 [facility] Platelets Auto (Bld) [#/Vol] on 01-25-2024 Platelets (Bld) [#/Vol] 249 10 3/uL 150-450 [facility] RBC Auto (Bld) [#/Vol]on RBC (Bld) [#/Vol] 4.73 10 6/uL 4.20-5.40 [facility] Serum or plasma albumin/glob ulin mass ratioon 01-25-2024 Albumin/Globulin [Mass ratio] 1.2 {ratio} [facility] Serum or plasma anion gap de terminationon 01-25-2024 Anion gap [Moles/Vol] 10.4 mmol/L [facility] Size [Entitic volume] of Sto neon 01-25-2024 Size (Stone) [Entitic vol] 7x2 mm . [facility] Comment on above: Multiple pieces rece ived. Dimensions of the largest piecereported. Sodium urate crystals detect ion in stone by infrared spectroscopyon 01-25-2024 Sodium urate crystals Infrared spectroscopy Ql (Stone) TNP . [facility] Specimen source subject [Typ e]on 01-25-2024 Specimen source subject Nom Comment . [facility] Comment on above: Left Ureter Triamterene measurement in c alculuson 01-25-2024 Triamterene (Stone) [Mass fraction] TNP . [facility] Triple phosphate/Total in St oneon 01-25-2024 Triple phosphate (Stone) [Mass fraction] TNP . [facility] Uric acid dihydrate crystals detection in stone by infrared spectroscopyon 01-25-2024 Urate dihydrate crystals Infrared spectroscopy Ql (Stone) TNP . [facility] Estimated glomerular filtrat ion rate (GFR) non- Americanon 10-23-2023 GFR/1.73 sq M.predicted among non-blacks MDRD (S/P/Bld) [Vol rate/Area] mL/min/{1.73_m2} >=60 [facility] Laboratory - Chemistry and C hemistry - challengeon 10-23-2023 Calcium [Mass/Vol] 9.4 mg/dL 8.5-10.1 [facility] Chloride [Moles/Vol] 106 mmol/L 98-107 [facility] CO2 [Moles/Vol] 29.6 mmol/L 21.0-32.0 [facility] Creatinine [Mass/Vol] 0.80 mg/dL 0.55-1.02 [facility] GFR/1.73 sq M.predicted MDRD (S/P/Bld) [Vol rate/Area] mL/min/{1.73_m2} >=60 [facility] Glucose [Mass/Vol] 81 mg/dL 74-106 [facility] Potassium [Moles/Vol] 3.8 mmol/L 3.5-5.1 [facility] Sodium [Moles/Vol] 142 mmol/L 136-145 [facility] Urea nitrogen [Mass/Vol] 17.0 mg/dL 7.0-18.0 [facility] Urea nitrogen/Creatinine [Mass ratio] 21.2 mg/mg [facility] No Panel Informationon 10-22 Troponin I High Sensitivity <4.0 pg/mL 4.0-51.3 [facility] Comment on above: CUT-OFF POINTS HAVE [...] terminationon 10-23-2023 Anion gap [Moles/Vol] 10.2 mmol/L [facility] MG MAMM SCREEN 3D ANNA CADon 05-31-2022 MG MAMM SCREEN 3D ANNA CAD Patient: LIZ KING Exam Date: 05/31/2022 : 1965 Gender:F Ordering : DR MIRYAM GUTHRIE D.O. Admission #: [id number] Family : Order #: [id number] CLICK HERE TO VIEW EXAM RADIOLOGY REPORT [...] leukemia cancer at age 80. LOCATION: [facility] BREAST COMPOSITION: Heterogeneously dense,which may obscure [...] Bell M.D. on 05/31/2022 at 16:00 [facility] VC INJ SCL ROBERT HUNTING AND FISHING GUIDE VEINSon 1 VC INJ SCL ROBERT HUNTING AND FISHING GUIDE VEINS Patient: LIZ KING Exam Date: 05/23/2022 : 1965 Gender:F Ordering : DR ANAHI MCNULTY M.D. Admission #: [id number] Family : Order #: [id number] CLICK HERE TO VIEW EXAM RADIOLOGY REPORT PROCEDURE: VEIN CENTER INJECTION SCLEROSING SOLUTION MULTIPLE VEINS SAME COMPARISON: VC INJ SCL ROBERT HUNTING AND FISHING GUIDE VEINS, 05/18/2022. INDICATIONS: Pain co-occurrent and due [...] Mcnulty MD on 05/23/2022 at 13:35 Normal [facility] VC INJ SCL ROBERT HUNTING AND FISHING GUIDE VEINSon 1 VC INJ SCL ROBERT HUNTING AND FISHING GUIDE VEINS Patient: LIZ KING Exam Date: 05/18/2022 : 1965 Gender:F Ordering : DR ANAHI MCNULTY M.D. Admission #: [id number] Family : Order #: [id number] CLICK HERE TO VIEW EXAM RADIOLOGY REPORT [...] Mcnulty MD on 05/18/2022 at 13:11 [facility] VC CONSULT FOLLOWUPon 2021 VC CONSULT FOLLOWUP Patient: SPENCER KING Exam Date: 05/13/2022 : 1965 Gender:F Ordering : DR ANAHI MCNULTY M.D. Admission #: [id number] Family : Order #: [id number] CLICK HERE TO VIEW EXAM RADIOLOGY REPORT [...] Anahi Mcnulty MD on 05/13/2022 at 12:57 [facility] VC EXT VENOUS RT LIMITEDon 0 05-13-2022 VC EXT VENOUS RT LIMITED Patient: LIZ KING Exam Date: 05/13/2022 : 1965 Gender:F Ordering : DR ANAHI MCNULTY M.D. Admission #: [id number] Family : Order #: [id number] CLICK HERE TO VIEW EXAM RADIOLOGY REPORT [...] Anahi Mcnulty MD on 05/13/2022 at 12:55 [facility] VC INJ FOAM SCLERO W US MLTI on 05-09-2022 VC INJ FOAM SCLERO W US MLTI Patient: LIZ KING Exam Date: 05/09/2022 : 1965 Gender:F Ordering : DR ANAHI MCNULTY M.D. Admission #: [id number] Family : Order #: [id number] CLICK HERE TO VIEW EXAM RADIOLOGY REPORT [...] and (more content not included)... Normal [facility] VC CONSULT FOLLOWUPon 2021 VC CONSULT FOLLOWUP Patient: SPENCER KING. Exam Date: 05/02/2022 : 1965 Gender:F Ordering : DR ANAHI MCNULTY M.D. Admission #: [id number] Family : Order #: [id number] CLICK HERE TO VIEW EXAM RADIOLOGY REPORT [...] Bell M.D. on 05/02/2022 at 13:15 [facility] VC EXT VENOUS LT LIMITEDon 0 05-02-2022 VC EXT VENOUS LT LIMITED Patient: LIZ KING Exam Date: 05/02/2022 : 1965 Gender:F Ordering : DR ANAHI MCNULTY M.D. Admission #: [id number] Family : Order #: [id number] CLICK HERE TO VIEW EXAM RADIOLOGY REPORT [...] Bell M.D. on 05/02/2022 at 13:07 [facility] VC INJ FOAM SCLERO W US MLTI on 04-26-2022 VC INJ FOAM SCLERO W US MLTI Patient: LIZ KING Exam Date: 04/26/2022 : 1965 Gender:F Ordering : DR ANAHI MCNULTY M.D. Admission #: [id number] Family : Order #: [id number] CLICK HERE TO VIEW EXAM RADIOLOGY REPORT [...] GSV, (more content not included)... Normal [facility] VC CONSULT FOLLOWUPon 2021 VC CONSULT FOLLOWUP Patient: SPENCER KING. Exam Date: 04/19/2022 : 1965 Gender:F Ordering : DR ANAHI MCNULTY M.D. Admission #: [id number] Family : Order #: [id number] CLICK HERE TO VIEW EXAM RADIOLOGY REPORT [...] Mcnulty MD on 04/19/2022 at 13:56 [facility] VC EXT VENOUS RT LIMITEDon 0 04-19-2022 VC EXT VENOUS RT LIMITED Patient: LIZ KING Exam Date: 04/19/2022 : 1965 Gender:F Ordering : DR ANAHI MCNULTY M.D. Admission #: [id number] Family : Order #: [id number] CLICK HERE TO VIEW EXAM RADIOLOGY REPORT [...] Mcnulty MD on 04/19/2022 at 13:24 [facility] VC ENDOVENOUS ABL 1ST V RTon 04-12-2022 VC ENDOVENOUS ABL 1ST V RT Patient: LIZ KING. Exam Date: 04/12/2022 : 1965 Gender:F Ordering : DR ANAHI MCNULTY M.D. Admission #: [id number] Family : Order #: [id number] CLICK HERE TO VIEW EXAM RADIOLOGY REPORT [...] The total [place] of Joules delivered was 50049. The laser was active for 146 seconds [...] Mcnulty MD on 04/12/2022 at 13:30 [facility] VC CONSULT FOLLOWUPon 2021 VC CONSULT FOLLOWUP Patient: SPENCER KING Exam Date: 03/29/2022 : 1965 Gender:F Ordering : DR ANAHI MCNULTY M.D. Admission #: [id number] Family : Order #: [id number] CLICK HERE TO VIEW EXAM RADIOLOGY REPORT [...] Bell M.D. on 03/29/2022 at 14:07 [facility] VC EXT VENOUS LT LIMITEDon 0 03-29-2022 VC EXT VENOUS LT LIMITED Patient: LIZ KING Exam Date: 03/29/2022 : 1965 Gender:F Ordering : DR ANAHI MCNULTY M.D. Admission #: [id number] Family : Order #: [id number] CLICK HERE TO VIEW EXAM RADIOLOGY REPORT [...] M.D. on 03/29/2022 at 14:02 Normal [facility] VC ENDOVENOUS ABL 1ST V LTon 03-22-2022 VC ENDOVENOUS ABL 1ST V LT Patient: LIZ KING Exam Date: 03/22/2022 : 1965 Gender:F Ordering : DR ANAHI MCNULTY M.D. Admission #: [id number] Family : Order #: [id number] CLICK HERE TO VIEW EXAM RADIOLOGY REPORT [...] Mcnulty MD on 03/22/2022 at 14:03 [facility] VC CONSULT FOLLOWUPon 2021 VC CONSULT FOLLOWUP Patient: SPENCER KING Exam Date: 02/25/2022 : 1965 Gender:F Ordering : DR ANAHI MCNULTY M.D. Admission #: [id number] Family : Order #: [id number] CLICK HERE TO VIEW EXAM RADIOLOGY REPORT [...] Mcnulty MD on 02/25/2022 at 14:12 Normal [facility] VC EXT VENOUS RT LIMITEDon 0 02-25-2022 VC EXT VENOUS RT LIMITED Patient: LIZ KING. Exam Date: 02/25/2022 : 1965 Gender:F Ordering : DR ANAHI MCNULTY M.D. Admission #: [id number] Family : Order #: [id number] CLICK HERE TO VIEW EXAM RADIOLOGY REPORT [...] Mcnulty MD on 02/25/2022 at 14:03 [facility] VC CONSULT FOLLOWUPon 2021 VC CONSULT FOLLOWUP Patient: SPENCER KING. Exam Date: 02/07/2022 : 1965 Gender:F Ordering : DR ANAHI MCNULTY M.D. Admission #: [id number] Family : Order #: [id number] CLICK HERE TO VIEW EXAM RADIOLOGY REPORT [...] Mcnulty MD on 02/07/2022 at 12:26 [facility] VC EXT VENOUS RT LIMITEDon 0 02-07-2022 VC EXT VENOUS RT LIMITED Patient: LIZ KING Exam Date: 02/07/2022 : 1965 Gender:F Ordering : DR ANAHI MCNULTY M.D. Admission #: [id number] Family : Order #: [id number] CLICK HERE TO VIEW EXAM RADIOLOGY REPORT [...] Mcnulty MD on 02/07/2022 at 12:06 [facility] VC CONSULT FOLLOWUPon 2021 VC CONSULT FOLLOWUP Patient: SPENCER KING Exam Date: 01/31/2022 : 1965 Gender:F Ordering : DR ANAHI MCNULTY M.D. Admission #: [id number] Family : Order #: [id number] CLICK HERE TO VIEW EXAM RADIOLOGY REPORT [...] Bell M.D. on 01/31/2022 at 15:59 [facility] VC EXT VENOUS RT LIMITEDon 0 01-31-2022 VC EXT VENOUS RT LIMITED Patient: LIZ KING Exam Date: 01/31/2022 : 1965 Gender:F Ordering : DR ANAHI MCNULTY M.D. Admission #: [id number] Family : Order #: [id number] CLICK HERE TO VIEW EXAM RADIOLOGY REPORT [...] Bell M.D. on 01/31/2022 at 15:40 [facility] VC ENDOVENOUS ABL 1ST V RTon 01-25-2022 VC ENDOVENOUS ABL 1ST V RT Patient: LIZ KING Exam Date: 01/25/2022 : 1965 Gender:F Ordering : DR ANAHI MCNULTY M.D. Admission #: [id number] Family : Order #: [id number] CLICK HERE TO VIEW EXAM RADIOLOGY REPORT [...] 36 cm from the entry 10 cm awkhr-ube-arfh to 3 cm below the saphenofemoral junction. [...] Bell M.D. on 01/25/2022 at 14:30 Normal [facility] COMP CONSULTATIONon 12-23 VC COMP CONSULTATION Patient: LIZ KING Exam Date: 12/23/2021 : 1965 Gender:F Ordering : DR AYSE PRECIADO M.D. 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 The patient's symptoms are relieved by rest, [...] Mcnulty MD on 12/23/2021 at 13:56 Normal [facility] VC VENOUS REFLUX ANNA LMTon 0 12-23-2021 VC VENOUS REFLUX ANNA LMT Patient: ILZ KING Exam Date: 12/23/2021 : 1965 Gender:F Ordering : DR AYSE PRECIADO M.D. Admission #: [id number] Family : Order #: [id number] CLICK HERE TO VIEW EXAM RADIOLOGY REPORT [...] area of thrombus. Deep venous reflux visualized. 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 Dist calf [...] MD on 12/23/2021 at 12:48 Normal [facility] US SHANIA DOP LEG LTon 12-14-19 22 US [...] by: JAYY BELL Date: 2021-12-13 12:41 [facility] Vital Signs Date Time Vital Sign Value Performing Clinician Giana leal 02-01-2024 14:32-0400 Body height 165.1 cm [facility] 02-01-2024 14:32-0400 Body mass index (BMI) [Ratio] 34.6 kg/m2 [facility] 02-01-2024 14:32-0400 Body weight 94.34 kg [facility] 02-01-2024 14:32-0400 Diastolic blood pressure 75 mm[Hg] [facility] 02-01-2024 14:32-0400 Heart rate 63 /min [facility] 02-01-2024 14:32-0400 Systolic blood pressure 121 mm[Hg] [facility] 01-25-2024 16:12-0400 Body weight 57 mg MD Ayse Preciado Work Phone: [facility] 11-16-2023 14:56-0400 Body height 165.1 cm MD Ayse Preciado Work Phone: [facility] 11-16-2023 14:56-0400 Body mass index (BMI) [Ratio] 34.7 kg/m2 MD Ayse Preciado Work Phone: [facility] 11-16-2023 14:56-0400 Body weight 94.51 kg MD Ayse Preciado Work Phone: [facility] 11-16-2023 14:56-0400 Diastolic blood pressure 81 mm[Hg] MD Ayse Preciado Work Phone: [facility] 11-16-2023 14:56-0400 Heart rate 70 /min MD Ayse Preciado Work Phone: [facility] 11-16-2023 14:56-0400 Systolic blood pressure 131 mm[Hg] MD Ayse Preciado Work Phone: [facility] 10-23-2023 14:13-0400 Body height 165.1 cm MD Ayse Preciado Work Phone: [facility] 10-23-2023 14:130400 Body mass index (BMI) [Ratio] 34.4 kg/m2 MD Ayse Preciado Work Phone: [facility] 10-23-2023 14:13-0400 Body weight 94 kg MD Ayse Preciado Work Phone: [facility] 10-23-2023 14:13-0400 Diastolic blood pressure 90 mm[Hg] MD Ayse Preciado Work Phone: [facility] 10-23-2023 14:13-0400 Heart rate 62 /min MD Ayse Preciado Work Phone: [facility] 10-23-2023 14:13-0400 Systolic blood pressure 134 mm[Hg] MD Ayse Preciado Work Phone: [facility] Encounters Encounter Date Encounter Type Care Provider Facility Start: 09-03-2024 ambulatory Gurdeep SWEENEY Facility :[facility] Start: 04-11-2024 End: 04-11-2024 ambulatory MD Ayse Preciado Work Phone: [facility] Work Phone: Start: 04-11-2024 End: 04-11-2024 Departed Referred MD Ayse Preciado Work Phone: [facility] Start: 04-11-2024 Non-patient / Non-visit MD Zoey Preciado Work Phone: [facility] Work Phone: Start: 02-19-2024 End: 02-19-2024 ambulatory Gurdeep SWEENEY Facility:[facility] Start: 02-19-2024 End: 02-19-2024 Patient encounter procedure Gurdeep SWEENEY [facility] Start: 02-07-2024 End: 02-07-2024 ambulatory Gurdeep SWEENEY Facility:[facility] Start: 02-07-2024 End: 02-07-2024 Patient encounter procedure Gurdeep P ZAHRA [facility] Start: 02-01-2024 End: 02-01-2024 ambulatory [facility] Work Phone: Start: 02-01-2024 End: 02-01-2024 Patient encounter procedure [facility] Physician [facility] Work Phone: Start: 01-26-2024 ambulatory Gurdeep ZAHRA Facility:[facility] Start: 01-25-2024 Non-patient / Non-visit [facility] Work Phone: Start: 01-25-2024 End: 01-25-2024 ambulatory Gurdeep SWEENEY Facility:[id number] Start: 11-16-2023 End: 11-16-2023 ambulatory MD Ayse Preciado Work Phone: [facility] Work Phone: Start: 11-16-2023 End: 11-16-2023 Patient encounter procedure MD Ayse Preciado Work Phone: [facility] Work Phone: Start: 10-23-2023 End: 10-23-2023 ambulatory Ayse Preciado Facility:[facility] Start: 10-23-2023 End: 10-23-2023 Patient encounter procedure MD Ayse Preciado Work Phone: [facility] Work Phone: Start: 05-31-2022 End: 06-01-2022 [...] thyroglossal duct cyst Gurdeep SWEENEY Lithotripsy Gurdeep SEWENEY Plan of Treatment Date Care Activity Detail Author Start: 02-01-2024 Patient referral [facility] Work Phone: Start: 10-23-[address] [facility] Patient referral [facility] Work Phone: [facility] Payers Date Payer Category Payer Self-pay 2023 Unknown [id number] 1965 Unknown [id number] 2.16.84 0.1.804089.3.579.2.593 1965 Unknown [id number] 2.16.84 0.1.359213.3.579.2.593 1965 Unknown [id number] 2.16.84 0.1.175393.3.579.2.593 1965 Unknown [id number] 2.16.84 0.1.517944.3.579.2.593 1965 Unknown [id number] 2.16.84 0.1.033479.3.579.2.593 1965 Unknown [id number] 2.16.84 0.1.489342.3.579.2.593 1965 Unknown [id number] 2.16.84 0.1.170168.3.579.2.593 1965 Unknown [id number] 2.16.84 0.1.352304.3.579.2.593 1965 Unknown [id number] 2.16.84 0.1.486376.3.579.2.593 1965 Unknown [id number] 2.16.84 0.1.964341.3.579.2.593 1965 Unknown [id number] 2.16.84 0.1.044518.3.579.2.593 1965 Unknown [id number] 2.16.84 0.1.808668.3.579.2.593 1965 Unknown [id number] 2.16.84 0.1.690993.3.579.2.593 1965 Unknown [id number] 2.16.84 0.1.010655.3.579.2.593 1965 Unknown [id number] 2.16.84 0.1.794318.3.579.2.593 1965 Unknown [id number] 2.16.84 0.1.125540.3.579.2.593 1965 Unknown [id number] 2.16.84 0.1.612311.3.579.2.593 1965 Unknown [id number] 2.16.84 0.1.106164.3.579.2.593 1965 Unknown [id number] 2.16.84 0.1.271223.3.579.2.593 1965 Unknown [id number] 2.16.84 0.1.321107.3.579.2.593 1965 Unknown [id number] 2.16.84 0.1.813406.3.579.2.593 1965 Unknown [id number] 2.16.8 40.1.637954.3.579.2.727 1965 Unknown [id number] 2.16.8 40.1.313916.3.579.2.727 1965 Unknown [id number] 2.16.8 40.1.546458.3.579.2.727 1965 Unknown [id number] 2.16.8 40.1.539636.3.579.2.727 1959 Unknown [id number] Unknown [id number] 2.16.8 40.1.716500.3.579.2.531 Unknown [id number] 2.16.8 40.1.983379.3.579.2.531 Social History Date Type Detail Facility Start: 12-16-2020 End: 10-23-2023 Tobacco smoking status NHIS Never smoked tobacco (finding) [facility] Start: 1965 Sex Assigned At Female [facility] Sex Assigned At Female [facility] Clinical Notes 02-01-2024 to 02-19-2024 Note Date & Type Note Facility [...] Up Care 01/29/2024 11:42:41 With:Gurdeep SWEENEY Address: [address] [place] [address] [facility] ([facility] When: Unknown Comments:The stent has now [...] decision at any time.Have a great day. [facility] 02-19-2024 Note Patient Education Cystoscopy with Stent [...] you have a fever over 100 degrees. [facility] 02-01-2024 Hospital Discharg e instructions Ambulatory OrdersReferral to [facility] Time Frame: 02/01/24, Location: None Selected [facility] Work Phone: Evaluation + Plan note Future Appointments Appointment Date:02/12/2024 08:00:00 AM Scheduled Provider: Location:[facility] Appointment Type:Urology CALL PAT FT Appointment Date:02/19/2024 03:15:00 PM Scheduled Provider: Location:[facility] Appointment Type:Urology FT [facility] Evaluation + Plan note Future Appointments Appointment Date:09/03/2024 02:30:00 PM Scheduled Provider:Gurdeep WSEENEY MD Location:Critical access hospital Appointment Type:URO Office Visit [facility] Evaluation note Diagnosis Onset Date Epigastric abdominal pain ac tlingit & haida HTN (hypertension) acute [facility] Work Phone: Evaluation note* Diagnosis Onset Date Resolution Status HTN (hypertension) acute Uterine mass [facility] Work Phone: Evaluation note* Diagnosis Onset Date Resolution Status HTN (hypertension) acute Nephrolithiasis acute Uterine mass [facility] Work Phone: Hospital course Narrative No data available for this section [facility] Hospital Discharge instructions No data available for this section [facility] progress note No data available for this section [facility] Summary Purpose Family History No Family History Records Found Relationship Condition Age at Onset Recorded Date/T clarence father Diabetes mellitus Unknown Heart disease Unknown Not Specified Dementia Unknown Family history of mental disorder Unknown Relationship Condition Age at Onset Recorded Date/T clarence father Diabetes mellitus Unknown Heart disease Unknown mother Dementia Unknown Family history of mental disorder Unknown Advance Directives No Advanced Directives Records Found Advance Directive Response Recorded Date/ Time Advance Directives No October 22 2:05pm Chief Complaint and Reason for Visit Chief Complaint BP Issues Check Up Reason for Visit Epigastric abdominal pain HTN (hypertension) Chief Complaint Check Up bp med concerns Reason for Visit HTN (hypertension) Uterine mass Chief Complaint bp med concerns Unknown Reason for Visit HTN (hypertension) Nephrolithiasis Uterine mass Additional Source Comments INFORMATION SOURCE (unrecogn ized section and content) DATE CREATED AUTHOR 06/07/2022 [facility] DATE CREATED AUTHOR AUTHOR'S ORGANIZ ATION 02/27/2024 [facility] DATE CREATED AUTHOR AUTHOR'S ORGANIZ ATION 04/21/2024 [facility] Care Teams (unrecognized sec tion and content) Team Status: Active Member Role Status Dates Ayse Preciado MD Primary Care Provider Active Team Status: Active Member Role Status Dates Ayse Preciado MD Primary Care Provider Active Start: January 25, 2024 Marsha Cool DO Attending Provider Active Start: January 25, 2024 Team Status: Inactive Member Role Status Dates Ayse Preciado MD Primary Care Provide r, Attending Provider Active Start: February 01, 2024 End: February 01, 2024 Team Status: Active Member Role Status Dates Ayse Preciado MD Primary Care Provider Active Start: April 11, 2024 Juan Antonio Flynn DO Attending Provider Active Start : April 11, 2024 Team Status: Inactive Member Role Status Dates Ayse Preciado MD Primary Care Provider Active Start: April 11, 2024 End: April 11, 2024 Juan Antonio Flynn DO Attending Provider Active Start : April 11, 2024 End: April 11, 2024 Team Status: Inactive Member Role Status [...] this section No data available for this sectionGoals may be documented in an alternate section FOR RECORDS PERTAINING TO PATIENTS [...] BE BASED ON THE PRIMARY CLINICAL RECORDS. [facility] [employer] [facility]. provides no warranty or guarantee of the accuracy or completeness of information in this document.
== END 2024-06-04 13:59 | disposition home or self-care (01) ==
LOC: MAMMO 13:58
PROVIDERS: PCP Family Medicine; Visit Provider Obstetrics & Gynecology
DX: Z12.31 Encounter for screening mammogram for malignant neoplasm of breast (principal); Z80.6 Family history of leukemia
CPT/HCPCS: 77063; 77067

== ENCOUNTER 2024-07-08 13:50 | Outpatient (OUT) | payer OTHER, SELFPAY ==
--- NOTE | 2024-07-08 14:03 | ECG_ITS ---
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
[2024-07-08 14:46] LABS: Basophils Absolute Auto 0.1 10^3/uL (0.0-0.1); Basophils Percent Auto 0.8 % (0.2-2.0); Eosinophils Absolute Auto 0.1 10^3/uL (0.0-0.7); Eosinophils Percent Auto 2.2 % (0.9-7.0); Hemoglobin 12.8 g/dL (12.0-16.0); Immature Granulocytes Abs Auto 0.02 10^3/uL (0.00-0.03); Immature Granulocytes Pct Auto 0.3 % (0.0-0.5); Lymphocytes Absolute Auto 1.7 10^3/uL (1.2-3.8); Lymphocytes Percent Auto 29.1 % (20.5-60.0); Mean Corpuscular HGB Conc 34.6 g/dL (29.9-35.2); Mean Corpuscular Hemoglobin 29.3 pg (26.7-34.0); Mean Corpuscular Volume 84.7 fL (81.0-99.0); Mean Platelet Volume 10.2 fL (9.5-13.5); Monocytes Absolute Auto 0.5 10^3/uL (0.3-0.8); Monocytes Percent Auto 8.2 % (1.7-12.0); Neutrophils Absolute Auto 3.6 10^3/uL (1.4-6.5); Neutrophils Percent Auto 59.4 % (43.0-75.0); Platelet Count 242 10^3/uL (150-450); Red Blood Count 4.37 10^6/uL (4.20-5.40); Red Cell Distribution Width 12.1 % (11.0-15.0)
[2024-07-08 15:00] LABS: Alanine Aminotransferase 34 U/L (14-59); Albumin Globulin Ratio 1.1; Albumin Level 3.6 g/dL (3.4-5.0); Alkaline Phosphatase 76 U/L (46-116); Anion Gap 14.3; Aspartate Amino Transferase 25 U/L (15-37); BUN Creatinine Ratio 16.9; Bilirubin Direct 0.1 mg/dL (0.0-0.2); Bilirubin Total 0.3 mg/dL (0.2-1.0); Calcium 8.9 mg/dL (8.5-10.1); Carbon Dioxide 24.7 mmol/L (21.0-32.0); Chloride 106 mmol/L (98-107); Estimated GFR (African America >60 (>=60 mL/min/1.73m^2); Estimated GFR (Non-African Ame >60 (>=60 mL/min/1.73m^2); Globulin 3.3 g/dL; Glucose 83 mg/dL (74-106); Sodium 141 mmol/L (136-145); Total Protein 6.9 g/dL (6.4-8.2)
[2024-07-08 15:11] LABS: INR 0.97; Partial Thromboplastin Time 25.4 sec (22.3-36.2); Prothrombin Time 10.3 sec (9.0-11.6)
== END 2024-07-08 13:51 | disposition home or self-care (01) ==
LOC: PST 13:51
PROVIDERS: PCP Family Medicine; Visit Provider Obstetrics & Gynecology
DX: Z01.810 Encounter for preprocedural cardiovascular examination (principal); Z01.812 Encounter for preprocedural laboratory examination; N85.2 Hypertrophy of uterus; R10.2 Pelvic and perineal pain
CPT/HCPCS: 80048; 80076; 85025; 85610; 85730; 93005

== ENCOUNTER 2024-07-22 13:16 | Outpatient (OUT) | payer OTHER, SELFPAY | END 2024-07-22 13:17 | disposition home or self-care (01) | LOC: LAB 13:17 | PROVIDERS: PCP Family Medicine; Visit Provider Obstetrics & Gynecology | DX: Z01.812 Encounter for preprocedural laboratory examination (principal); N85.2 Hypertrophy of uterus; R10.2 Pelvic and perineal pain | CPT/HCPCS: 36415; 86850; 86900; 86901 ==

== ENCOUNTER 2024-07-24 06:20 | Inpatient (IN) | payer OTHER, SELFPAY ==
[2024-07-08 14:34] VITALS: BP 126/78; PULSE 65; TEMP 36.3; O2SAT 97; BMI 35.9
[2024-07-24] VITALS (13 sets, daily range): BP systolic 106–126; BP diastolic 65–87; PULSE 56–75; TEMP 36.4–37.1; O2SAT 90–100; BMI 35.2
--- OUTSIDE RECORDS SUMMARY | 2024-07-24 06:19 | XMS_ITS | CCD ---
Author Organization [facility] Care Team Providers Care Night Manager Name Role Phone HAMLET, DR ANAHI Reich [...] JAYY Santos Consulting Unavailable WEST, DR ANAHI eRich Admitting Unavailable WEST, DR ANAHI Reich Attending Unavailable BALL, DR WITT Primary Care Unavailable WEST, DR ANAHI Reich Consulting Unavailable MD Ayse Preciado Primary Care Provider MD Ayse Preciado Attending Provider AYSE PRECIADO Primary Care Physician Gurdeep SWEENEY Attending Unavailable ZAHRA, Gurdeep Henson Attending Unavailable Gurdeep SWEENEY Admitting Unavailable ZAHRA, Gurdeep Henson Attending Unavailable ZAHRA, Gurdeep Henson Referring Unavailable Gurdeep SWEENEY Referring Unavailable Gurdeep SWEENEY Attending Unavailable MD Ayse Preciado Primary Care Provider DO Juan Antonio Flynn Attending Provider Juan Antonio Flynn Admitting Unavailable Juan Antonio Flynn Attending Unavailable Ayse Preciado Primary Care Unavailable Ayse Preciado Primary Care Unavailable Ayse Preciado Attending Unavailable Ayse Preciado Admmagali Unavailable Ayse Preciado MD Primary Care Provider [phone] Allergies Allergy Classification Reported Allergen(s) Allergy Type Date of Onset Reaction(s) Facility Sulfonamides (antibiotic) (1 source) Sulfonamides (Antibiotic); Translations: [sulfa drugs] Drug Allergy Eruption of skin (disorder) [facility] (2 sources) Sulfamethoxazole / Trimethoprim Drug Allergy [facility] (7 sources) Sulfamethoxazole; Translations: [sulfamethoxazole] Drug Allergy 11-16-19 [facility] (4 sources) Sulfonamides (Antibiotic); Translations: [Sulfa (Sulfonamide Antibiotics)] Allergy to substance 11-16-19 [facility] (7 sources) Trimethoprim; Translations: [trimethoprim] Drug Allergy 11-16-19 [facility] (2 sources) Sulfonamides (Antibiotic); Translations: [sulfa drugs] Drug allergy Eruption of skin (disorder) [facility] (3 sources) Sulfamethoxazole / Trimethoprim Drug Allergy 02-22-20 [facility] Work Phone: (3 sources) Sulfonamides (Antibiotic) Drug Allergy 02-01-20 Rash [facility] Work Phone: Medications Current Medications Medication Drug Class(es) Dates Sig (Normalized) Sig (Original) amLODIPine 10 mg oral tablet (10 sources) Dihydropyridine Calcium Channel Jose Start: 02-01-2024 End: 04-08-2024 take 1 tablet by mouth once daily amLODIPine (Norvasc) 10 MG tablet Take 10 mg by mouth Daily 02/01/2024 Active Start: 12-15-2023 End: 02-01-2024 take 5 mg by mouth once daily Amlodipine Discontinued 5 MG PO Daily 90 January 10, 2024 8:42am February 01, 2024 2:59pm ciprofloxacin 500 mg oral tablet (2 sources) Quinolone Antimicrobial Start: 01-29-2024 Cipro 500 mg Tab See Instructions, Take 1 tab day prior to procedure and 1 tab day of procdure - afterwards, # 2 tab(s), Refills(s) 0, Pharmacy: [facility]/pharmacy #[id number] Start Date: 01/29/24 Status: Ordered fluticasone furoate [...] Status: Start; Refills: 1; Provider: Samuel Madsen (15 sources) Angiotensin 2 Receptor Jose Start: 03-11-2024 take 1 tablet by mouth once daily Losartan Active 0 .ROUTE .COMPLEX March 11, 2024 9:17am TAKE 1 TABLET BY MOUTH EVERY DAY Start: 11-16-2023 End: 03-11-2024 take 1 tablet by mouth once daily losartan (Cozaar) 50 MG tablet Take 50 mg by mouth Daily 12/11/2023 Active Start: 10-23-2023 End: 11-16-2023 take 25 mg by mouth once daily Losartan Discontinued 2 5 MG PO Daily November 14, 2023 7:40pm November 16, 2023 3:11pm Problems Active Problems Problem Classification Problem Date Documented Da te Episodic/Chronic Abdominal pain (9 sources) Epigastric pain; Translations: [Epigastric pain] Onset: [...] (2 sources) Iron deficiency 11-23-2020 Episodic Other aftercare (3 sources) Surgical follow-up; Translations: [Encounter for follow-up examination after completed treatment for conditions other than malignant neoplasm] Onset: 4 04-18-2024 Episodic Other female genital disorders (2 sources) Other specified noninflammatory disorders of uterus; Translations: [Other specified symptoms associated with female genital organs] 02-01-2024 Episodic Other female genital disorders (4 sources) Enlarged uterus; Translations: [Hypertrophy of uterus] Onset: 4 04-18-2024 Episodic Other nutritional; endocrine; and metabolic disorders [...] Other Problems Problem Classification Problem Date Documented Date Episodic/Chronic Other connective tissue disease (4 sources) Other specified soft tissue disorders; Translations: [OTHER SPEC SOFT TISSUE DISORDERS] Onset: 12-13-2021 Episodic Other female genital disorders (5 sources) Mass of uterus; Translations: [Other specified noninflammatory disorders of uterus] Onset: 02-22-2024 02-01-2024 Episodic Results Test Name Value Interpretation Reference Range Facility ALL CBC WITH AUTO DIFFon BASOPHILS ABSOLUTE AUTO 0.1 [facility] Basophils/100 WBC (Bld) 0.8 % 0.2 - 2.0 % [facility] Eosinophils/100 WBC (Bld) 2.2 % 0.9 - 7.0 % [facility] Erythrocyte distribution width (RBC) [Ratio] 12.1 % 11.0 - 15.0 % [facility] Hematocrit (Bld) [Volume fraction] 37 % 36.0 - 48.0 % [facility] Hemoglobin (Bld) [Mass/Vol] 12.8 g/dL 12.0 - 16.0 g/dL [facility] IMMATURE GRANULOCYTES ABS AUTO 0.02 [facility] Immature granulocytes/100 WBC (Bld) 0.3 % 0.0 - 0.5 % [facility] LYMPHOCYTES ABSOLUTE AUTO 1.7 [facility] Lymphocytes/100 WBC (Bld) 29.1 % 20.5 - 60.0 % [facility] MCH (RBC) [Entitic mass] 29.3 pg 26.7 - 34.0 pg [facility] MCHC (RBC) [Mass/Vol] 34.6 g/dL 29.9 - 35.2 g/dL [facility] MCV (RBC) [Entitic vol] 84.7 fL 81.0 - 99.0 fL [facility] MONOCYTES ABSOLUTE AUTO 0.5 [facility] Monocytes/100 WBC (Bld) 8.2 % 1.7 - 12.0 % [facility] NEUTROPHILS ABSOLUTE AUTO 3.6 [facility] Neutrophils/100 WBC (Bld) 59.4 % 43.0 - 75.0 % [facility] Platelet mean volume (Bld) [Entitic vol] 10.2 fL 9.5 - 13.5 fL [facility] RBC [address].37 [facility] WBC 6 [facility] Basophils Auto (Bld) [#/Vol] on 04-11-2024 Basophils (Bld) [#/Vol] 0.0 10 3/uL 0.0-0.1 [facility] Basophils/100 WBC Auto (Bld) on 04-11-2024 Basophils/100 WBC (Bld) 0.8 % 0.2-2.0 [facility] Eosinophils/100 WBC Auto (Bl d)on 04-11-2024 Eosinophils/100 WBC (Bld) 3.3 % 0.9-7.0 [facility] Erythrocyte distribution wid th Auto (RBC) [Ratio]on 04-11-2024 Erythrocyte distribution width (RBC) [Ratio] 12.1 % 11.0-15.0 [facility] Hematocrit Auto (Bld) [Volum e fraction]on 04-11-2024 Hematocrit (Bld) [Volume fraction] 36.5 % 36.0-48.0 [facility] Hemoglobin [Mass/volume] in Bloodon 04-11-2024 Hemoglobin (Bld) [Mass/Vol] 13.1 g/dL 12.0-16.0 [facility] Braden 04-11-2024 L Specimen: [id number] R eceived: 04/11/24 Status: ERIC Aguirre Num: [id number] Spec Type: Surgical Subm Dr: Juan Antonio Flynn Tissues: A Cervical Polyp (CERV POLYP) B Endometrium - Curettings (ENDOM CUR) Procedures: HE/4, Gross/Micro L4/2 Age/ Patient Sex Location Account Attending Physician FernandoLiz 59/F [facility] [id number] Juan Antonio Flynn SPEC NUM: [id number] RECD: 04/11/24 STATUS: ERIC AGUIRRE NUM: [id number] MAURY: 04/11/24- SUBM DR: Juan Antonio Flynn ENTERED: 04/11/24 [facility] DR: Maciej,Lab SPEC TYPE: Surgical DEPT: NAVYA BENJAMIN ENTERED BY: [id number] RECV BY: [id number] ORDERED: HE/4, Gross/Micro L4/2 ORDERED: HE/4, Gross/Micro [...] x 1.0 x 0.4 cm -------- Specimen: [id number] Received: 04/11/24 Status: ERIC Aguirre Num: [id number] Spec Type: Surgical Subm Dr: Juan Antonio Flynn Tissues: A Cervical Polyp (CERV POLYP) B Endometrium - Curettings (ENDOM CUR) Procedures: HE/Rivka, Jan/Micro L4/2 -------- Patient: Liz King [id number] (Continued) -------- Specimen: [id number] Received: 04/11/24 (Continued) Gross Description (Continued) Signed (signature on file) Carlos Ochoa MD 04/19/24 1050 -------- Specimen: [id number] Received: 04/11/24 Status: ERIC Aguirre Num: [id number] Spec Type: Surgical Subm Dr: Juan Antonio Flynn Tissues: A Cervical Polyp (CERV POLYP) B Endometrium - Curettings (ENDOM CUR) Procedures: HE/4, Gross/Micro L4/2 -------- Patient: Margaret Kingyccate Gallegos [id number] (Continued) -------- Specimen: [id number] Received: 04/11/24 (Continued) Gross Description (Continued) in aggregate. The specimen is entirely submitted in cassette B1. Microscopic Description Microscopic examinations are performed supporting the above interpretation CPT Codes 96268T8 -------- -------- Specimen: [id number] Received: 04/11/24-135 Status: ERIC Aguirre Num: [id number] Spec Type: Surgical Subm Dr: Juan Antonio Flynn Tissues: A Cervical Polyp (CERV POLYP) B Endometrium - Curettings (ENDOM CUR) Procedures: HE/Rivka, Gross/Micro L4/2 -------- Patient: Liz King [id number] (Continued) -------- Signed (signature on file) Floyd Ochoa MD 04/19/24 1050 Normal [facility] Laboratory - Hematology and Cell countson 04-11-2024 Immature granulocytes/100 WBC (Bld) 0.2 % 0.0-0.5 [facility] Leukocytes [#/volume] correc aubrey for nucleated erythrocytes in Blood by Automated counon 04-11-2024 WBC corrected for nucl RBC Auto (Bld) [#/Vol] 5.2 10 3/uL 4.0-11.0 [facility] Lymphocytes Auto (Bld) [#/Vo l]on 04-11-2024 Lymphocytes (Bld) [#/Vol] 1.8 10 3/uL 1.2-3.8 [facility] Lymphocytes/100 WBC Auto (Bl d)on 04-11-2024 Lymphocytes/100 WBC (Bld) 33.8 % 20.5-60.0 [facility] MCH Auto (RBC) [Entitic mass ]on 04-11-2024 MCH (RBC) [Entitic mass] 29.8 pg 26.7-34.0 [facility] MCHC Auto (RBC) [Mass/Vol]on 04-11-2024 MCHC (RBC) [Mass/Vol] 35.9 g/dL High 29.9-35.2 [facility] MCV Auto (RBC) [Entitic vol] on 04-11-2024 MCV (RBC) [Entitic vol] 83.1 fL 81.0-99.0 [facility] Monocytes Auto (Bld) [#/Vol] on 04-11-2024 Monocytes (Bld) [#/Vol] 0.5 10 3/uL 0.3-0.8 [facility] Monocytes/100 WBC Auto (Bld) on 04-11-2024 Monocytes/100 WBC (Bld) 10.0 % 1.7-12.0 [facility] Neutrophils Auto (Bld) [#/Vo l]on 04-11-2024 Neutrophils (Bld) [#/Vol] 2.7 10 3/uL 1.4-6.5 [facility] Neutrophils/100 WBC Auto (Bl d)on 04-11-2024 Neutrophils/100 WBC (Bld) 51.9 % 43.0-75.0 [facility] No Panel Informationon 04-11 Eosinophils # (Auto) 0.2 10 3/uL 0.0-0.7 [facility] Immature Granulocyte # (Auto) 0.01 10 3/uL 0.00-0.03 [facility] Platelet mean volume Auto (B ld) [Entitic vol]on 04-11-2024 Platelet mean volume (Bld) [Entitic vol] 10.0 fL 9.5-13.5 [facility] Platelets Auto (Bld) [#/Vol] on 04-11-2024 Platelets (Bld) [#/Vol] 237 10 3/uL 150-450 [facility] RBC Auto (Bld) [#/Vol]on RBC (Bld) [#/Vol] 4.39 10 6/uL 4.20-5.40 [facility] Inpatient Patient Summaryon 02-19-2024 Inpatient Patient Summary Inpatient Patient Summary [address] [address] Clinical Summary Person Information Name: LIZ KING Age: 59 Years : 1965 Sex: Female PCP: AYSE PRECIADO MD Marital Status: Race: White Ethnicity: Non- or Language: German Visit Id: Visit Reason: KIDNEY STONE Speciality: Acuity: Enc Type: Outpatient Med Service: Surgery Arrival: 02/19/2024 14:32:49 Discharge: Dispo Type: Address: [address] [place] [id number] Provider Notes: Diagnosis: Problems Active Pilar cysts [...] up: With: Address: When: Gurdeep SWEENEY [address], [address], [facility] [address] [place] [id number] Business (1) Comments: The stent has now [...] Removal Discharge Instructions (Custom) Margaret [facility] Main OR Intraoperative Recor don 02-19-2024 Main OR Intraoperative Record Main OR Intraoperative Record IntraOp Document Type FTURO Summary Primary Physician: Gurdeep SWEENEY MD Finalized Date/Time: 02/19/24 15:19:48 Pt. Name: LIZ KING El Dougherty/Sex: 1965 Female Med Rec #: [id number] Physician: Gurdeep SWEENEY MD Financial #: [id number] Pt. Type: O Room/Bed: / Admit/Disch: 02/19/24 14:32:49 - Institution: Case Times FTURO Entry 1 Patient Times In Room 02/19/24 15:10:00 Out Room 02/19/24 15:19:00 Procedure Times Start 02/19/24 15:16:00 Stop 02/19/24 15:16:00 Anesthesia Times Last Modified By: Ludy Dietrich 02/19/24 15:19:36 Case Attendance FTURO Entry 1 Entry 2 Entry 3 Case Attendee Gurdeep SWEENEY MD, Kelsie E McClain SUPERVISOR INSPECTIONJennifer Role Performed Surgeon - Primary Functional Consultant - Primary Scrub - Primary Time In [...] Ludy Dietrich 02/19/24 15:19 Normal [facility] Main OR Preoperative Recordo n 02-19-2024 Main OR Preoperative Record Main OR Preoperative Record Holding Area Document Type FTURO Summary Primary Physician: Gurdeep SWEENEY MD Finalized Date/Time: 02/19/24 14:49:34 Pt. Name: FERNANDOLIZO.B./Sex: 1965 Female Med Rec #: [id number] Physician: Gurdeep SWEENEY MD Financial #: [id number] Pt. Type: O Room/Bed: / Admit/Disch: 02/19/24 [...] RN, Ruthann 02/19/24 14:49 Normal [facility] Operative Reporton Operative Report Operative Report Patient: [...] urine/metabolic workup prior to that visit.. Normal [facility] Comment on above: Result Comment: Elec tronically Signed By: Gurdeep SWEENEY MD\.br\Date and Time Signed: 02/19/24 15:22 EDT Outpatient Surgery Discharge Instructionon 02-19-2024 Outpatient Surgery Discharge Instruction Outpatient Surgery Discharge Instruction [place] [id number] Patient Discharge Instructions PERSON INFORMATION Name: LIZ [...] up: With: Address: When: Gurdeep SWEENEY [address], [address], [employer] [address] [place], [place] [id number] SYLOB (1) Comments: The stent has now been [...] you have a fever over 100 degrees. I, LIZ KING, have received the attached patient education materials/instructions [...] to serve you. Thank you for choosing [facility] Consultation Noteon 02-01-20 Consultation Note [id number]#1.00TIFF [facility] Insurance Correspondence Off iceon 01-30-2024 Insurance Correspondence Office [id number]#1.00TIFF [facility] Operative Reporton Operative Report [id number]#1.00TIFF [facility] Ammonium urate crystals dete ction in stone by infrared spectroscopyon 01-25-2024 Ammonium urate crystals Infrared spectroscopy Ql (Stone) [place] . [facility] Basophils Auto (Bld) [#/Vol] on 06-13-2024 Basophils (Bld) [#/Vol] 0.0 10 3/uL 0.0-0.1 [facility] Basophils/100 WBC Auto (Bld) on 01-25-2024 Basophils/100 WBC (Bld) 0.4 % 0.2-2.0 [facility] Calcium bilirubinate measure menton 01-25-2024 Calcium bilirubinate (Stone) [Mass fraction] TNP . [facility] Calcium carbonate (Stone) [M ass fraction]on 01-25-2024 Stone Calcium Carbonate TNP . [facility] Calcium hydrogen phosphate d ihydrate (Stone) [Mass fraction]on 01-25-2024 Stone Calcium Hydrogen Phosphate TNP . [facility] Calcium oxalate dihydrate cr ystals detection in stone by infrared spectroscopyon 01-25-2024 Calcium oxalate dihydrate crystals Infrared spectroscopy Ql (Stone) 40 % . [facility] Calcium oxalate monohydrate crystal detectionon 01-25-2024 Calcium oxalate monohydrate crystals Infrared spectroscopy Ql (Stone) 60 % . [facility] Calcium phosphate measuremen ton 01-25-2024 Calcium phosphate (Stone) [Mass fraction] TNP . [facility] Calculus analysis interpreta tion in stoneon 01-25-2024 Calculus analysis [Interp] TNP . [facility] Calculus analysis [Interp] Comment . [facility] Comment on above: Calculus received we t. Wet calculi must be dried beforeanalysis, which delays reporting of results. Leaving calculiwet (such as water, saline, blood, urine) may lead tochanges in composition. Physician questions regarding Calculi Analysis contactLabCorp at: [phone]. Calculus analysis with calcu katarina photography interpretation in stoneon 01-25-2024 Calculus analysis with calculus photography [Interp] Comment . [facility] Comment on above: Photograph will foll ow under a separate cover Cellular material measuremen t in stone by estimated (mass/mass)on 01-25-2024 Cellular material Est (Stone) [Mass/Mass] TNP . [facility] Cholesterol [Mass/volume] in Serum or Plasmaon 01-25-2024 Cholesterol [Mass/Vol] TNP . [facility] Composition of stoneon 01-24 Composition Nom (Stone) Comment . [facility] Comment on above: Percentage (Represen ts the % composition) Cystine measurementon 2023 Cystine (Unsp spec) [Moles/Vol] TNP . [facility] Determination of color of ca lculuson 01-25-2024 Color (Stone) Brown . [facility] Eosinophils/100 WBC Auto (Bl d)on 01-25-2024 Eosinophils/100 WBC (Bld) 1.5 % 0.9-7.0 [facility] Erythrocyte distribution wid th Auto (RBC) [Ratio]on 01-25-2024 Erythrocyte distribution width (RBC) [Ratio] 12.5 % 11.0-15.0 [facility] Estimated glomerular filtrat ion rate (GFR) non- Americanon 01-25-2024 GFR/1.73 sq M.predicted among non-blacks MDRD (S/P/Bld) [Vol rate/Area] 57 mL/min/{1.73_m2} Low >=60 [facility] Globulin Calc (S) [Mass/Vol] on 01-25-2024 Globulin (S) [Mass/Vol] 3.5 g/dL [facility] Hematocrit Auto (Bld) [Volum e fraction]on 01-25-2024 Hematocrit (Bld) [Volume fraction] 39.7 % 36.0-48.0 [facility] Hemoglobin [Mass/volume] in Bloodon 01-25-2024 Hemoglobin (Bld) [Mass/Vol] 13.6 g/dL 12.0-16.0 [facility] Laboratory - Chemistry and C hemistry - challengeon 01-25-2024 Albumin [Mass/Vol] 4.2 g/dL 3.4-5.0 [facility] ALP [Catalytic activity/Vol] 87 U/L 46-116 [facility] ALT [Catalytic activity/Vol] 42 U/L 14-59 [facility] AST [Catalytic activity/Vol] 27 U/L 15-37 [facility] Bilirubin [Mass/Vol] 0.4 mg/dL 0.2-1.0 [facility] Calcium [Mass/Vol] 9.4 mg/dL 8.5-10.1 [facility] Chloride [Moles/Vol] 105 mmol/L 98-107 [facility] CO2 [Moles/Vol] 28.5 mmol/L 21.0-32.0 [facility] Creatinine [Mass/Vol] 1.00 mg/dL 0.55-1.02 [facility] GFR/1.73 sq M.predicted MDRD (S/P/Bld) [Vol rate/Area] mL/min/{1.73_m2} >=60 [facility] Glucose [Mass/Vol] 141 mg/dL High 74-106 [facility] Potassium [Moles/Vol] 3.9 mmol/L 3.5-5.1 [facility] Protein [Mass/Vol] 7.7 g/dL 6.4-8.2 [facility] Sodium [Moles/Vol] 140 mmol/L 136-145 [facility] Urea nitrogen [Mass/Vol] 19.0 mg/dL High 7.0-18.0 [facility] Urea nitrogen/Creatinine [Mass ratio] 19.0 mg/mg [facility] Bilirubin Ql (U) Negative NEGATIVE [facility] Glucose (U) [Mass/Vol] Negative NEGATIVE [facility] Ketones Ql (U) Negative NEGATIVE [facility] pH (U) 6.0 [pH] 5.0-9.0 [facility] Specific gravity (U) [Rel density] >=1.030 Abnormal 1.005-1.025 [facility] Urobilinogen Qn (U) 0.2 {Erum'U}/dL 0.2-1.0 [facility] Laboratory - Hematology and Cell countson 01-25-2024 Immature granulocytes/100 WBC (Bld) 0.4 % 0.0-0.5 [facility] Laboratory - Specimen inform ationon 01-25-2024 Appearance (U) CLEAR CLEAR [facility] Color (U) YELLOW YELLOW [facility] Laboratory - Urinalysison Leukocyte esterase Test strip Ql (U) TRACE Abnormal NEGATIVE [facility] Mucus Ql (Urine sed) NONE SEEN NONE SEEN [facility] Nitrite Ql (U) Negative NEGATIVE [facility] Protein Ql (U) 30 mg/dL Abnormal NEG/TRACE [facility] Leukocytes [#/volume] correc aubrey for nucleated erythrocytes in Blood by Automated counon 01-25-2024 WBC corrected for nucl RBC Auto (Bld) [#/Vol] 7.5 10 3/uL 4.0-11.0 [facility] Lymphocytes Auto (Bld) [#/Vo l]on 01-25-2024 Lymphocytes (Bld) [#/Vol] 1.1 10 3/uL Low 1.2-3.8 [facility] Lymphocytes/100 WBC Auto (Bl d)on 01-25-2024 Lymphocytes/100 WBC (Bld) 14.5 % Low 20.5-60.0 [facility] MCH Auto (RBC) [Entitic mass ]on 01-25-2024 MCH (RBC) [Entitic mass] 28.8 pg 26.7-34.0 [facility] MCHC Auto (RBC) [Mass/Vol]on 01-25-2024 MCHC (RBC) [Mass/Vol] 34.3 g/dL 29.9-35.2 [facility] MCV Auto (RBC) [Entitic vol] on 01-25-2024 MCV (RBC) [Entitic vol] 83.9 fL 81.0-99.0 [facility] Measurement of proportion of calculus composed of dried blood (mass/mass)on 01-25-2024 Blood.dried (Stone) [Mass fraction] TNP . [facility] Monocytes Auto (Bld) [#/Vol] on 01-25-2024 Monocytes (Bld) [#/Vol] 0.4 10 3/uL 0.3-0.8 [facility] Monocytes/100 WBC Auto (Bld) on 01-25-2024 Monocytes/100 WBC (Bld) 5.6 % 1.7-12.0 [facility] Neutrophils Auto (Bld) [#/Vo l]on 01-25-2024 Neutrophils (Bld) [#/Vol] 5.9 10 3/uL 1.4-6.5 [facility] Neutrophils/100 WBC Auto (Bl d)on 01-25-2024 Neutrophils/100 WBC (Bld) 77.6 % High 43.0-75.0 [facility] Newberyite crystals detectio n in stone by infrared spectroscopyon 01-25-2024 Newberyite crystals Infrared spectroscopy Ql (Stone) TNP . [facility] No Panel Informationon 01-24 Stone 2,8 Dihydroxyadenine TNP . [facility] Stone Analysis Disclaimer Comment . [facility] Comment on above: Calculi report will follow via computer, mail or courierdelivery. This test was develo ped and its performance characteristicsdetermined by [employer]. It has not been cleared or approvedby the Food and Drug Administration.Performed at: [employer] [id number] Director: Jessica Morales PhD, Phone: [phone] Stone Bilirubinate TNP . [facility] Stone Calcium Palmitate TNP . [facility] Stone Calcium Stearate TNP . [facility] Stone Drug or Metabolite TNP . [facility] Stone Other Constituent TNP . [facility] Stone Xanthine TNP . [facility] Eosinophils # (Auto) 0.1 10 3/uL 0.0-0.7 [facility] Immature Granulocyte # (Auto) 0.03 10 3/uL 0.00-0.03 [facility] Urine Bacteria LARGE #/HPF Abnormal NONE SEEN [facility] Urine Calcium Oxalate Crystals RARE [facility] Urine Culture Reflexed YES [facility] Urine Occult Blood LARGE Abnormal NEGATIVE [facility] Urine Other Casts NONE SEEN #/LPF NONE SEEN [facility] Urine Other Crystals Seen #/HPF Abnormal None Seen [facility] Urine RBC 20-50 #/HPF Abnormal 0-2 [facility] Urine Squamous Epithelial Cells FEW #/LPF Abnormal NONE/RARE [facility] Urine WBC 0-2 #/HPF Abnormal NONE SEEN [facility] Platelet mean volume Auto (B ld) [Entitic vol]on 01-25-2024 Platelet mean volume (Bld) [Entitic vol] 10.2 fL 9.5-13.5 [facility] Platelets Auto (Bld) [#/Vol] on 01-25-2024 Platelets (Bld) [#/Vol] 249 10 3/uL 150-450 [facility] RBC Auto (Bld) [#/Vol]on RBC (Bld) [#/Vol] 4.73 10 6/uL 4.20-5.40 [facility] Serum or plasma albumin/glob ulin mass ratioon 01-25-2024 Albumin/Globulin [Mass ratio] 1.2 {ratio} [facility] Serum or plasma anion gap de terminationon 01-25-2024 Anion gap [Moles/Vol] 10.4 mmol/L [facility] Size [Entitic volume] of Sto neon 01-25-2024 Size (Stone) [Entitic vol] 7x2 mm . [facility] Comment on above: Multiple pieces rece ived. Dimensions of the largest piecereported. Sodium urate crystals detect ion in stone by infrared spectroscopyon 01-25-2024 Sodium urate crystals Infrared spectroscopy Ql (Stone) TNP . [facility] Specimen source subject [Typ e]on 01-25-2024 Specimen source subject Nom Comment . [facility] Comment on above: Left Ureter Triamterene measurement in c alculuson 01-25-2024 Triamterene (Stone) [Mass fraction] TNP . [facility] Triple phosphate/Total in St oneon 01-25-2024 Triple phosphate (Stone) [Mass fraction] TNP . [facility] Uric acid dihydrate crystals detection in stone by infrared spectroscopyon 01-25-2024 Urate dihydrate crystals Infrared spectroscopy Ql (Stone) TNP . [facility] Estimated glomerular filtrat ion rate (GFR) non- Americanon 10-23-2023 GFR/1.73 sq M.predicted among non-blacks MDRD (S/P/Bld) [Vol rate/Area] mL/min/{1.73_m2} >=60 [facility] Laboratory - Chemistry and C hemistry - challengeon 10-23-2023 Calcium [Mass/Vol] 9.4 mg/dL 8.5-10.1 [facility] Chloride [Moles/Vol] 106 mmol/L 98-107 [facility] CO2 [Moles/Vol] 29.6 mmol/L 21.0-32.0 [facility] Creatinine [Mass/Vol] 0.80 mg/dL 0.55-1.02 [facility] GFR/1.73 sq M.predicted MDRD (S/P/Bld) [Vol rate/Area] mL/min/{1.73_m2} >=60 [facility] Glucose [Mass/Vol] 81 mg/dL 74-106 [facility] Potassium [Moles/Vol] 3.8 mmol/L 3.5-5.1 [facility] Sodium [Moles/Vol] 142 mmol/L 136-145 [facility] Urea nitrogen [Mass/Vol] 17.0 mg/dL 7.0-18.0 [facility] Urea nitrogen/Creatinine [Mass ratio] 21.2 mg/mg [facility] No Panel Informationon 10-22 Troponin I High Sensitivity <4.0 pg/mL 4.0-51.3 [facility] Comment on above: CUT-OFF POINTS HAVE [...] terminationon 10-23-2023 Anion gap [Moles/Vol] 10.2 mmol/L [facility] MG MAMM SCREEN 3D ANNA CADon 05-31-2022 MG MAMM SCREEN 3D ANNA CAD Patient: LIZ KING Exam Date: 05/31/2022 : 1965 Gender:F Ordering : DR MIRYAM GUTHRIE D.O. Admission #: [id number] Family : Order #: [id number] CLICK HERE TO VIEW EXAM RADIOLOGY REPORT [...] leukemia cancer at age 80. LOCATION: [facility] BREAST COMPOSITION: Heterogeneously dense,which may obscure [...] M.D. on 05/31/2022 at 16:00 Normal [facility] VC INJ SCL ROBERT SERVICE CONSULTANT VEINSon 1 VC INJ SCL ROBERT SERVICE CONSULTANT VEINS Patient: LIZ KING Exam Date: 05/23/2022 : 1965 Gender:F Ordering : DR ANAHI MCNULTY M.D. Admission #: [id number] Family : Order #: [id number] CLICK HERE TO VIEW EXAM RADIOLOGY REPORT PROCEDURE: VEIN CENTER INJECTION SCLEROSING SOLUTION MULTIPLE VEINS SAME COMPARISON: VC INJ SCL ROBERT SERVICE CONSULTANT VEINS, 05/18/2022. INDICATIONS: Pain co-occurrent and due [...] Mcnulty MD on 05/23/2022 at 13:35 Normal [facility] VC INJ SCL ROBERT SERVICE CONSULTANT VEINSon 1 VC INJ SCL ROBERT SERVICE CONSULTANT VEINS Patient: LIZ KING Exam Date: 05/18/2022 : 1965 Gender:F Ordering : DR ANAHI MCNULTY M.D. Admission #: [id number] Family : Order #: [id number] CLICK HERE TO VIEW EXAM RADIOLOGY REPORT [...] Mcnulty MD on 05/18/2022 at 13:11 Normal [facility] VC CONSULT FOLLOWUPon 2021 VC CONSULT FOLLOWUP Patient: SPENCER KING Exam Date: 05/13/2022 : 1965 Gender:F Ordering : DR ANAHI MCNULTY M.D. Admission #: [id number] Family : Order #: [id number] CLICK HERE TO VIEW EXAM RADIOLOGY REPORT [...] Mcnulty MD on 05/13/2022 at 12:57 Normal [facility] VC EXT VENOUS RT LIMITEDon 0 05-13-2022 VC EXT VENOUS RT LIMITED Patient: LIZ KING Exam Date: 05/13/2022 : 1965 Gender:F Ordering : DR ANAHI MCNULTY M.D. Admission #: [id number] Family : Order #: [id number] CLICK HERE TO VIEW EXAM RADIOLOGY REPORT [...] Mcnulty MD on 05/13/2022 at 12:55 Normal [facility] VC INJ FOAM SCLERO W US MLTI on 05-09-2022 VC INJ FOAM SCLERO W US MLTI Patient: LIZ KING Exam Date: 05/09/2022 : 1965 Gender:F Ordering : DR ANAHI MCNULTY M.D. Admission #: [id number] Family : Order #: [id number] CLICK HERE TO VIEW EXAM RADIOLOGY REPORT [...] needed and (more content not included)... Normal [facility] VC CONSULT FOLLOWUPon 2021 VC CONSULT FOLLOWUP Patient: SPENCER KING. Exam Date: 05/02/2022 : 1965 Gender:F Ordering : DR ANAHI MCNULTY M.D. Admission #: [id number] Family : Order #: [id number] CLICK HERE TO VIEW EXAM RADIOLOGY REPORT [...] Bell M.D. on 05/02/2022 at 13:15 Normal [facility] VC EXT VENOUS LT LIMITEDon 0 05-02-2022 VC EXT VENOUS LT LIMITED Patient: LIZ KING Exam Date: 05/02/2022 : 1965 Gender:F Ordering : DR ANAHI MCNULTY M.D. Admission #: [id number] Family : Order #: [id number] CLICK HERE TO VIEW EXAM RADIOLOGY REPORT [...] Bell M.D. on 05/02/2022 at 13:07 Normal [facility] VC INJ FOAM SCLERO W US MLTI on 04-26-2022 VC INJ FOAM SCLERO W US MLTI Patient: LIZ KING Exam Date: 04/26/2022 : 1965 Gender:F Ordering : DR ANAHI MCNULTY M.D. Admission #: [id number] Family : Order #: [id number] CLICK HERE TO VIEW EXAM RADIOLOGY REPORT [...] GSV, (more content not included)... Normal [facility] VC CONSULT FOLLOWUPon 2021 VC CONSULT FOLLOWUP Patient: SPENCER KING. Exam Date: 04/19/2022 : 1965 Gender:F Ordering : DR ANAHI MCNULTY M.D. Admission #: [id number] Family : Order #: [id number] CLICK HERE TO VIEW EXAM RADIOLOGY REPORT [...] Mcnulty MD on 04/19/2022 at 13:56 Normal [facility] VC EXT VENOUS RT LIMITEDon 0 04-19-2022 VC EXT VENOUS RT LIMITED Patient: LIZ KINGShea Exam Date: 04/19/2022 : 1965 Gender:F Ordering : DR ANAHI MCNULTY M.D. Admission #: [id number] Family : Order #: [id number] CLICK HERE TO VIEW EXAM RADIOLOGY REPORT [...] Mcnulty MD on 04/19/2022 at 13:24 Normal [facility] VC ENDOVENOUS ABL 1ST V RTon 04-12-2022 VC ENDOVENOUS ABL 1ST V RT Patient: MARGARET KINGYCCate GallegosShea Exam Date: 04/12/2022 : 1965 Gender:F Ordering : DR ANAHI MCNULTY M.D. Admission #: [id number] Family : Order #: [id number] CLICK HERE TO VIEW EXAM RADIOLOGY REPORT [...] The total number of Joules delivered was 35400. The laser was active for 146 seconds [...] Mcnulty MD on 04/12/2022 at 13:30 Normal [facility] VC CONSULT FOLLOWUPon 2021 VC CONSULT FOLLOWUP Patient: SPENCER KING Exam Date: 03/29/2022 : 1965 Gender:F Ordering : DR ANAHI MCNULTY M.D. Admission #: [id number] Family : Order #: [id number] CLICK HERE TO VIEW EXAM RADIOLOGY REPORT [...] Bell M.D. on 03/29/2022 at 14:07 Normal [facility] VC EXT VENOUS LT LIMITEDon 0 03-29-2022 VC EXT VENOUS LT LIMITED Patient: LIZ KING Exam Date: 03/29/2022 : 1965 Gender:F Ordering : DR ANAHI MCNULTY M.D. Admission #: [id number] Family : Order #: [id number] CLICK HERE TO VIEW EXAM RADIOLOGY REPORT [...] Bell M.D. on 03/29/2022 at 14:02 Normal [facility] VC ENDOVENOUS ABL 1ST V LTon 03-22-2022 VC ENDOVENOUS ABL 1ST V LT Patient: LIZ KING Exam Date: 03/22/2022 : 1965 Gender:F Ordering : DR ANAHI MCNULTY M.D. Admission #: [id number] Family : Order #: [id number] CLICK HERE TO VIEW EXAM RADIOLOGY REPORT [...] Mcnulty MD on 03/22/2022 at 14:03 Normal [facility] VC CONSULT FOLLOWUPon 2021 VC CONSULT FOLLOWUP Patient: SPENCER KING Exam Date: 02/25/2022 : 1965 Gender:F Ordering : DR ANAHI MCNULTY M.D. Admission #: [id number] Family : Order #: [id number] CLICK HERE TO VIEW EXAM RADIOLOGY REPORT [...] Mcnulty MD on 02/25/2022 at 14:12 Normal [facility] VC EXT VENOUS RT LIMITEDon 0 02-25-2022 VC EXT VENOUS RT LIMITED Patient: LIZ KING Exam Date: 02/25/2022 : 1965 Gender:F Ordering : DR ANAHI MCNULTY M.D. Admission #: [id number] Family : Order #: [id number] CLICK HERE TO VIEW EXAM RADIOLOGY REPORT [...] Mcnulty MD on 02/25/2022 at 14:03 Normal [facility] VC CONSULT FOLLOWUPon 2021 VC CONSULT FOLLOWUP Patient: SPENCER KING Exam Date: 02/07/2022 : 1965 Gender:F Ordering : DR ANAHI MCNULTY M.D. Admission #: [id number] Family : Order #: [id number] CLICK HERE TO VIEW EXAM RADIOLOGY REPORT [...] Anahi Mcnulty MD on 02/07/2022 at 12:26 [facility] VC EXT VENOUS RT LIMITEDon 0 02-07-2022 VC EXT VENOUS RT LIMITED Patient: LIZ KING Exam Date: 02/07/2022 : 1965 Gender:F Ordering : DR ANAHI MCNULTY M.D. Admission #: [id number] Family : Order #: [id number] CLICK HERE TO VIEW EXAM RADIOLOGY REPORT [...] Mcnulty MD on 02/07/2022 at 12:06 Normal [facility] VC CONSULT FOLLOWUPon 2021 VC CONSULT FOLLOWUP Patient: SPENCER KING Exam Date: 01/31/2022 : 1965 Gender:F Ordering : DR ANAHI MCNULTY M.D. Admission #: [id number] Family : Order #: [id number] CLICK HERE TO VIEW EXAM RADIOLOGY REPORT [...] Bell M.D. on 01/31/2022 at 15:59 Normal [facility] VC EXT VENOUS RT LIMITEDon 0 01-31-2022 VC EXT VENOUS RT LIMITED Patient: LIZ KING. Exam Date: 01/31/2022 : 1965 Gender:F Ordering : DR ANAHI MCNULTY M.D. Admission #: [id number] Family : Order #: [id number] CLICK HERE TO VIEW EXAM RADIOLOGY REPORT [...] Bell M.D. on 01/31/2022 at 15:40 Normal [facility] VC ENDOVENOUS ABL 1ST V RTon 01-25-2022 VC ENDOVENOUS ABL 1ST V RT Patient: LIZ KING Exam Date: 01/25/2022 : 1965 Gender:F Ordering : DR ANAHI MCNULTY M.D. Admission #: [id number] Family : Order #: [id number] CLICK HERE TO VIEW EXAM RADIOLOGY REPORT [...] 36 cm from the entry 10 cm [id number] to 3 cm below the saphenofemoral junction. [...] Bell M.D. on 01/25/2022 at 14:30 Normal [facility] VC COMP CONSULTATIONon 12-23 VC COMP CONSULTATION Patient: LIZ KING Exam Date: 12/23/2021 : 1965 Gender:F Ordering : DR AYSE PRECIADO M.D. 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 The patient's symptoms are relieved by rest, [...] MD on 12/23/2021 at 13:56 Normal [facility] VC VENOUS REFLUX ANNA LMTon 0 12-23-2021 VC VENOUS REFLUX ANNA LMT Patient: LIZ KING Exam Date: 12/23/2021 : 1965 Gender:F Ordering : DR AYSE PRECIADO M.D. Admission #: [id number] Family : Order #: [id number] CLICK HERE TO VIEW EXAM RADIOLOGY REPORT [...] area of thrombus. Deep venous reflux visualized. [employer]: Dist/med calf 4.2 mm, 3.8s. Dist calf [...] MD on 12/23/2021 at 12:48 Normal [facility] US SHANIA DOP LEG LTon 12-14-19 [...] by: JAYY BELL Date: 2021-12-13 12:41 Normal [facility] Vital Signs Date Time Vital Sign Value Performing Clinician Fredricki lity 06-25-2024 13:36-0500 Body height 165.1 cm Juan Antonio Rina DO Work Phone: [facility] 06-25-2024 13:36-0500 Body mass index (BMI) [Ratio] 36.11 kg/m2 Juan Antonio Rina DO Work Phone: [facility] 06-25-2024 13:36-0500 Body weight 98.43 kg Juan Antonio Rina DO Work Phone: [facility] 06-25-2024 13:36-0500 Diastolic blood pressure 70 mm[Hg] Juan Antonio Rina DO Work Phone: [facility] 06-25-2024 13:36-0500 Systolic blood pressure 122 mm[Hg] Juan Antonio Rina DO Work Phone: [facility] 02-01-2024 14:32-0400 Body height 165.1 cm [facility] 02-01-2024 14:32-0400 Body mass index (BMI) [Ratio] 34.6 kg/m2 [facility] 02-01-2024 14:32-0400 Body weight 94.34 kg [facility] 02-01-2024 14:32-0400 Diastolic blood pressure 75 mm[Hg] [facility] 02-01-2024 14:32-0400 Heart rate 63 /min [facility] 02-01-2024 14:32-0400 Systolic blood pressure 121 mm[Hg] [facility] 01-25-2024 16:12-0400 Body weight 57 mg MD Ayse Preciado Work Phone: [facility] 11-16-2023 14:56-0400 Body height 165.1 cm MD Ayse Preciado Work Phone: [facility] 11-16-2023 14:56-0400 Body mass index (BMI) [Ratio] 34.7 kg/m2 MD Ayse Preciado Work Phone: [facility] 11-16-2023 14:56-0400 Body weight 94.51 kg MD Ayse Preciado Work Phone: [facility] 11-16-2023 14:56-0400 Diastolic blood pressure 81 mm[Hg] MD Ayse Preciado Work Phone: [facility] 11-16-2023 14:56-0400 Heart rate 70 /min MD Ayse Preciado Work Phone: [facility] 11-16-2023 14:56-0400 Systolic blood pressure 131 mm[Hg] MD Ayse Preciado Work Phone: [facility] 10-23-2023 14:13-0400 Body height 165.1 cm MD Ayse Preciado Work Phone: [facility] 10-23-2023 14:13-0400 Body mass index (BMI) [Ratio] 34.4 kg/m2 MD Ayse Preciado Work Phone: [facility] 10-23-2023 14:13-0400 Body weight 94 kg MD Ayse Preciado Work Phone: [facility] 10-23-2023 14:13-0400 Diastolic blood pressure 90 mm[Hg] MD Ayse Preciado Work Phone: [facility] 10-23-2023 14:13-0400 Heart rate 62 /min MD Ayse Preciado Work Phone: [facility] 10-23-2023 14:13-0400 Systolic blood pressure 134 mm[Hg] MD Ayse Preciado Work Phone: [facility] Encounters Encounter Date Encounter Type Care Provider Facility Start: 09-03-2024 ambulatory Gurdeep SWEENEY Facility : [facility] Start: 07-08-2024 End: 07-08-2024 Clinisync Result Encounter Juan Antonio Rina DO Work Phone: [facility] Unsolicited Start: 07-08-2024 End: 07-08-2024 Clinisync Result Encounter Juan Antonio Rina DO Work Phone: [facility] Unsolicited Start: 06-25-2024 End: 06-25-2024 Bamboo flowsheet Juan Antonio Rina DO Work Phone: [facility] Start: 06-25-2024 End: 06-25-2024 Bamboo flowsheet Juan Antonio Rina DO Work Phone: [facility] Start: 06-25-2024 End: 06-25-2024 Office outpatient visit 15 minutes Juan Antonio Rina DO Work Phone: [facility] Comment on above: Pre-op examination; Enlarged uterus; Pelvic pain in female Start: 06-25-2024 End: 06-25-2024 Preprocedural examination done Juan Antonio Rina DO Work Phone: [facility] Start: 04-11-2024 End: 04-11-2024 ambulatory MD Ayse Preciado Work Phone: [facility] Work Phone: Start: 04-11-2024 End: 04-11-2024 Departed Referred MD Ayse Preciado Work Phone: [facility] Start: 04-11-2024 Non-patient / Non-visit MD Zoey Preciado Work Phone: [facility] Work Phone: Start: 02-19-2024 End: 02-19-2024 ambulatory Gurdeep SWEENEY Facility[facility] Start: 02-19-2024 End: 02-19-2024 Patient encounter procedure Gurdeep SWEENEY [facility] Start: 02-07-2024 End: 02-07-2024 ambulatory Gurdeep SWEENEY Facility:[facility] Start: 02-07-2024 End: 02-07-2024 Patient encounter procedure Gurdeep SWEENEY [facility] Start: 02-01-2024 End: 02-01-2024 ambulatory [facility] Work Phone: Start: 02-01-2024 End: 02-01-2024 Patient encounter procedure [facility] Work Phone: Start: 01-26-2024 ambulatory Gurdeep SWEENEY Facility:[facility] Start: 01-25-2024 Non-patient / Non-visit [facility] Work Phone: Start: 01-25-2024 End: 01-25-2024 ambulatory Gurdeep SWEENEY Facility:[id number] Start: 11-16-2023 End: 11-16-2023 ambulatory MD Ayse Preciado Work Phone: [facility] Work Phone: Start: 11-16-2023 End: 11-16-2023 Patient encounter procedure MD Ayse Preciado Work Phone: [facility] Work Phone: Start: 10-23-2023 End: 10-23-2023 ambulatory Ayse Preciado Facility:[facility] Start: 10-23-2023 End: 10-23-2023 Patient encounter procedure MD Ayse Preciado Work Phone: [facility] Work Phone: Start: 05-31-2022 End: 06-01-[address] MIRYAM GUTHRIE Facility:[facility] Start: 05-30-[address] ANAHI Fiore y:[facility] Start: 05-27-[address] ANAHI MCNULTY [...] Procedures Date Procedure Procedure Detail Performing Clinician Start: 07-08-2024 ALL CBC WITH AUTO DIFF Juan Antonio Rina DO Work Phone: Start: 06-04-2024 Mammography Juan Antonio Fazi o DO Work Phone: Bilateral tubal ligation Gre dmy COOK section Gurdeep VEL Jasson Excision of thyroglo ssal duct cyst Gurdeep SWEENEY Lithotripsy Gurdeep SWEENEY Plan of Treatment Date Care Activity Detail Author Start: 06-04-2025 Screening for malign ant neoplasm of breast Mammogram [facility] Start: 08-01-2024 End: 08-01-2024 Patient encounter procedure 08/01/2024 10:50 AM EST Office Visit [facility] [address] [place] [address] Juan Antonio Flynn, DO [address] [place] [address] [facility] Start: 04-14-2024 Influenza vaccination Influenza Vacc ine (#1) [facility] Start: 02-01-2024 Patient referral [facility] Work Phone: Start: 10-23-2023 EKG 12 channel panel [facility] Start: 1995 Screening for malign ant neoplasm of cervix [facility] Start: 1986 Screening for malign ant neoplasm of cervix Pap Smear [facility] Start: 1965 Screening for malign ant neoplasm of colon [facility] Patient referral [facility] Work Phone: Pelvis [facility] Payers Date Payer Category Payer Self-pay 2023 Unknown [id number] 2023 Private Health Insurance [employer] [id number] 1965 Unknown [id number] 2.16840.1.171342.3.579.2. 593 1965 Unknown [id number] 2.16840.1.188481.3.579.2. 593 1965 Unknown [id number] 2.16840.1.997428.3.579.2. 593 1965 Unknown [id number] 2.16840.1.335558.3.579.2. 593 1965 Unknown [id number] 2.16840.1.420380.3.579.2. 593 1965 Unknown [id number] 2.16840.1.548642.3.579.2. 593 1965 Unknown [id number] 2.16840.1.752058.3.579.2. 593 1965 Unknown [id number] 2.16840.1.703572.3.579.2. 593 1965 Unknown [id number] 2.16840.1.403358.3.579.2. 593 1965 Unknown [id number] 2.16840.1.886401.3.579.2. 593 1965 Unknown [id number] 2.16840.1.841682.3.579.2. 593 1965 Unknown [id number] 2.16840.1.204692.3.579.2. 593 1965 Unknown [id number] 2.16840.1.131574.3.579.2. 593 1965 Unknown [id number] 2.16.840.1.537267.3.579.2. 593 1965 Unknown [id number] 2.16.840.1.414520.3.579.2. 593 1965 Unknown [id number] 2.16.840.1.683003.3.579.2. 593 1965 Unknown [id number] 2.16.840.1.874839.3.579.2. 593 1965 Unknown [id number] 2.16.840.1.820461.3.579.2. 593 1965 Unknown [id number] 2.16840.1.121587.3.579.2. 593 1965 Unknown [id number] 2.16840.1.445194.3.579.2. 593 1965 Unknown [id number] 2.16840.1.710199.3.579.2. 593 1965 Unknown [id number] 2.16840.1.928799.3.579.2. 727 1965 Unknown [id number] 2.16840.1.724311.3.579.2. 727 1965 Unknown [id number] 2.16840.1.869480.3.579.2. 727 1965 Unknown [id number] 2.16840.1.210313.3.579.2. 727 1959 Unknown [id number] Unknown [id number] 2.16840.1.911721.3.579.2. 531 Unknown [id number] 2.16840.1.534225.3.579.2. 531 Social History Date Type Detail Facility Start: 12-16-2020 End: 10-23-2023 Tobacco smoking status VTIS Never smoked tobacco (finding) [facility] Start: 1965 Sex Assigned At Female [facility] Sex Assigned At Female [facility] Tobacco smoking status [facility] Tobacco smoking consumption unknown [facility] Start: 04-18-2024 Gender identity Identifies as female gender (finding) [facility] Clinical Notes 02-01-2024 to 06-25-2024 Patricia Cervantes - 06/25/2024 1:10 PM EST Note Date & Type Note Facility 06-25-2024 History of Presen t illness Narrative Reason for Appointment: Patient ID: Liz King is a 59 y.o. female who presents for Pre-op Visit Patient presents today for Pre Op appointment. Patient is scheduled to undergo Total Abdominal Hysterectomy, possible BSO, possible cystoscopy on 07/24/[address] Flynn at [facility]. MEDICATIONS Current Outpatient Medications Medication Instructions amLODIPine (NORVASC) 10 mg, Oral, Daily losartan (COZAAR) 50 mg, Oral, Daily ALLERGIES Allergies Allergen Reactions Bactrim [Sulfamethoxazole-Trimethoprim ] Sulfamethoxazole Other Reaction(s): Hives Trimethoprim Other Reaction(s): Hives Sulfa Antibiotics Rash Other Reaction(s): Hives PROBLEMS Active Ambulatory Problems Diagnosis Date Noted Uterine mass 02/22/2024 Pelvic pressure in female 04/18/2024 Bulky or enlarged uterus 04/18/2024 Postoperative examination 04/18/2024 Resolved Ambulatory Problems Diagnosis Date Noted No Resolved Ambulatory Problems Past Medical History: Diagnosis Date High blood pressure (CMS/HCC) HISTORY PAST MEDICAL HISTORY SOCIAL HISTORY Past Medical History: Diagnosis Date High blood pressure (CMS/HCC) Social History Tobacco Use Smoking status: Not on file Smokeless tobacco: Not on file Substance Use Topics Alcohol use: Not on file Drug use: Not on file FAMILY HISTORY Family History Problem Relation Name Age of Onset Other (uterus prolapse) Mother Heart attack Father SURGICAL HISTORY Past Surgical History: Procedure Laterality Date SECTION, LOW TRANSVERSE X 2 DILATION AND CURETTAGE OF UTERUS 04/11/2024 HYSTEROSCOPY 04/11/2024 LAPAROSCOPY DIAGNOSTIC / BIOPSY / ASPIRATION / LYSIS Bilateral 04/11/2024 REVIEW OF SYSTEMS Review of Systems: Review of Systems Constitutional: Negative. HENT: Negative. Eyes: Negative. Respiratory: Negative. Cardiovascular: Negative. Gastrointestinal: Negative. Genitourinary: Positive for pelvic pain. Musculoskeletal: Negative. Skin: Negative. Neurological: Negative. All other systems reviewed and are negative. Hematological: Negative. Endocrine: Negative. Allergic/Immunologic: Negative. OBJECTIVE Objective: Physical Exam Constitutional: Appearance: Normal appearance. She is well-developed. Cardiovascular: Rate and Rhythm: Normal rate and regular rhythm. Pulmonary: Effort: Pulmonary effort is normal. Breath sounds: Normal breath sounds. Abdominal: General: Bowel sounds are normal. There is no distension. Palpations: Abdomen is soft. Tenderness: There is no abdominal tenderness. There is no guarding or rebound. Musculoskeletal: General: No swelling. Normal range of motion. Right lower leg: No edema. Left lower leg: No edema. Neurological: Mental Status: She is alert and oriented to person, place, and time. Skin: General: Skin is warm and dry. Psychiatric: Mood and Affect: Mood normal. Behavior: Behavior normal. Vitals and nursing note reviewed. Exam conducted with a chief construction inspector present. Vitals: Estimated body mass index is 36.11 kg/m as calculated from the following: Height as of this encounter: 5' 5 . Weight as of this encounter: 217 lb. BP: 122/70 No LMP recorded. Patient is postmenopausal. ASSESSMENT & PLAN ICD-10-CM 1. Pre-op examination Z01.818 2. Enlarged uterus N85.2 3. Pelvic pain in female R10.2 Pre Op: Patient is doing well but has complaints of pelvic pain. I have discussed conservative management vs. surgical management with the patient in detail and patient desires surgical management at this time. Patient will undergo Total Abdominal Hysterectomy, possible BSO, possible cystoscopy on 07/24/2024. Surgical consents were signed, mmc was reviewed, and patient is to proceed to [facility] OR. Follow Up: Patient is to follow up at 1 & 6 weeks post operative to assess proper healing and recovery from procedure. Documented by Janina Garcia LPN on behalf of: Juan Antonio Flynn DO documented in this encounter [facility] 02-19-2024 Hospital Discharg e instructions Patient Education [...] Up Care 01/29/2024 11:42:41 With:Gurdeep SWEENEY Address: [address] [place], [place] [id number] Business (1) When: Unknown Comments:The stent has [...] decision at any time.Have a great day. [facility] 02-19-2024 Note Patient Education Cystoscopy with Stent [...] a fever over 100 degrees. [facility] 02-01-2024 Hospital Discharg e instructions Ambulatory OrdersReferral to SINGE MACHINE OPERATOR Time Frame: 02/01/24, Location: [facility] Work Phone: Evaluation + Plan note Future Appointments Appointment Date:02/12/2024 08:00:00 AM Scheduled Provider: Location:[facility] Appointment Type:Urology CALL PAT FT Appointment Date:02/19/2024 03:15:00 PM Scheduled Provider: Location:[facility] Appointment Type:Urology FT [facility] Evaluation + Plan note Future Appointments Appointment Date:09/03/2024 02:30:00 PM Scheduled Provider:Gurdeep SWEENEY MD Location:[facility] Appointment Type:URO Office Visit [facility] Evaluation note Diagnosis Onset Date Epigastric abdominal pain ac brock HTN (hypertension) acute [facility] Work Phone: evaluation note* Diagnosis Onset Date Resolution Status HTN (hypertension) acute Uterine mass [facility] Work Phone: evaluation note* Diagnosis Onset Date Resolution Status HTN (hypertension) acute Nephrolithiasis acute Uterine mass [facility] Work Phone: Evaluation note* Diagnosis Pre-op examination Enlarged uterus Hypertrophy of uterus Pelvic pain in female Unspecified symptom associated with female genital organs [facility] No data available for this section [facility] Hospital Discharge instructions No data available for this section [facility] progress note No data available for this section [facility] Summary Purpose Family History Relationship Condition Age [...] AUTHOR'S ORGANIZ ATION 02/27/2024 [facility] DATE CREATED AUTHOR AUTHOR'S ORGANIZ ATION 04/21/2024 [facility] Care Teams (unrecognized sec tion and [...] November 16, 2023 End: November 16, 2023 Night Manager Relationship Specialty Start Date End Date Ayse Preciado MD [address] [place] [address] PCP - General Family Medicine 02/22/24 Night Manager Relationship Specialty Start Date End Date Ayse Preciado MD [address] [place] [address] PCP - General Family Medicine 02/22/24 Goals (unrecognized section and content) Goals may be documented in a n alternate sectionGoals may be documented in an alternate section No data available for this section No data available for this sectionGoals may be documented in an alternate section Reason for Visit (unrecogniz ed section and content) Reason Comments Pre-op Visit FOR RECORDS PERTAINING TO PATIENTS WHO ARE [...] BE BASED ON THE PRIMARY CLINICAL RECORDS. [employer] provides no warranty or guarantee of the accuracy or completeness of information in this document.
[2024-07-24 06:29] LABS: Basophils Absolute Auto 0.1 10^3/uL (0.0-0.1); Basophils Percent Auto 0.8 % (0.2-2.0); Eosinophils Absolute Auto 0.2 10^3/uL (0.0-0.7); Eosinophils Percent Auto 2.4 % (0.9-7.0); Hematocrit 39.5 % (36.0-48.0); Hemoglobin 13.4 g/dL (12.0-16.0); Immature Granulocytes Abs Auto 0.02 10^3/uL (0.00-0.03); Immature Granulocytes Pct Auto 0.3 % (0.0-0.5); Lymphocytes Absolute Auto 1.6 10^3/uL (1.2-3.8); Mean Corpuscular HGB Conc 33.9 g/dL (29.9-35.2); Mean Corpuscular Hemoglobin 28.7 pg (26.7-34.0); Mean Corpuscular Volume 84.6 fL (81.0-99.0); Mean Platelet Volume 9.8 fL (9.5-13.5); Monocytes Absolute Auto 0.5 10^3/uL (0.3-0.8); Monocytes Percent Auto 8.8 % (1.7-12.0); Neutrophils Absolute Auto 3.8 10^3/uL (1.4-6.5); Neutrophils Percent Auto 61.7 % (43.0-75.0); Platelet Count 259 10^3/uL (150-450); Red Blood Count 4.67 10^6/uL (4.20-5.40); Red Cell Distribution Width 11.9 % (11.0-15.0); White Blood Count 6.2 10^3/uL (4.0-11.0)
[2024-07-24 06:55] LABS: HCG Quantitative 2 mIU/mL
[2024-07-24] MEDS: LACTATED RINGER'S SOLUTION 1,000 ML 50 ML IV ×2 (06:55→10:48)
[2024-07-24] MEDS: CEFAZOLIN SODIUM 2 GM/50 ML D5W PREMIX IV (07:29)
--- NOTE | 2024-07-24 10:18 | PM.ONB ---
Brief Operative Note Date of procedure: 07/24/24 Pre-op diagnosis general: uterine fibroids, enlarged uterus, pelvic pain and pressure, dyspareunia Post-op diagnosis: same as pre-op Procedure: NAME OF PROCEDURE: [ ]EL BSO WITH CYSTOSCOPY PROCEDURE: Patient was taken back to the Operating Room where she was given general anesthesia without difficulty. She was then prepped and draped in the normal sterile fashion. A Pfannenstiel skin incision was then made 2 cm above the symphysis and pubis and carried down to underlying rectus fascia using a Bovie. The fascia was incised in the midline and extended bilaterally using Kessler scissors. Two Silas clamps were placed on the superior aspect of the fascia and dissected off the underlying rectus muscle. The same was performed on the inferior aspect as well. The muscle was then in the midline. The peritoneum was identified and entered bluntly. Peritoneum was then extended superiorly and inferiorly with good visualization of the bladder. An O'Pctycjls-S-Ljwspu retractor was placed into the patient's abdomen. The bowel was packed away with moist laparotomy sponges and the bladder blade was inserted. A Leahey tenaculum was placed on the patient's uterus and used for retraction. LigaSure apparatus was then used to come across the infundibular pelvic ligament on the patient's right side which was then cauterized and transected. This was carried down serially through the broad ligament and across the round ligament. The bladder flap was then created using the Metzenbaum scissors, and the bladder was easily dissected off the patient's lower uterine segment. A curved Nick was placed across the uterine artery on the right side which was clamped, transected, and suture ligated using #0 Monocryl. This was performed on the contralateral side as well. The bladder was further dissected and a Zeppelin clamp was then placed across the uterosacral and cardinal ligaments. This was transected and suture ligated using #0 Monocryl. This was performed on the contralateral side as well. The uterus was then amputated using Jorgensonscissors. The patient's cuff was closed using #0 PDS in a running locked fashion and this was transfixed to the ipsilateral uterosacral and cardinal ligaments. Excellent hemostasis was assured. The patient's abdomen was copiously irrigated using warm saline. Cystoscopy was performed. Bladder was intact. Efflux was noted from both ostia. Cystoscope was removed. After excellent hemostasis was assured, all instruments were removed from the patient's abdomen. The patient's peritoneum was closed using 3-0 Vicryl in a running fashion. The patient's fascia was closed using #0 Vicryl in a running fashion. The patient's skin was closed using sylvia. The patient tolerated the procedure well. Sponge, lap, and needle counts were correct times two. Patient taken to the Recovery Room in stable condition. please note robotic hysterectomy was attempted and aborted dt size of uterus and extensive endometriosis with adhesions Anesthesia: FINESSE Surgeon: Juan Antonio Flynn Electrical & Instrumentation Supervisor: Mabel Lancaster Estimated blood loss (mL): 50 Pathology: other (uterus, tubes ovaries and cervix) Condition: stable Disposition: PACU Urinary Catheter Management Urinary Catheter Management Urethral: Cath placed during this visit: no
[2024-07-24] MEDS: OXYCODONE HCL/ACETAMINOPHEN 5MG/325MG 1 TAB PO (11:44)
[2024-07-24] MEDS: LACTATED RINGER'S SOLUTION 1,000 ML 125 ML IV ×2 (11:47→20:01)
[2024-07-24] MEDS: SIMETHICONE 80 MG TAB.CHEW PO ×2 (13:07→20:44)
[2024-07-24] MEDS: CEFAZOLIN SODIUM/DEXTROSE,ISO 2 GM/50 ML PIGGYBACK IV ×2 (15:21→20:43)
[2024-07-24] MEDS: KETOROLAC TROMETHAMINE 30 MG/ML VIAL IVP ×2 (16:24→23:08)
[2024-07-24] MEDS: OXYCODONE HCL/ACETAMINOPHEN 5MG/325MG 2 TAB PO (17:29)
[2024-07-24] MEDS: ENOXAPARIN SODIUM 40 MG/0.4 ML SYRINGE SUBQ (20:43)
[2024-07-24] MEDS: DOCUSATE SODIUM 100 MG CAPSULE PO (20:44)
[2024-07-24] MEDS: IBUPROFEN 400 MG TABLET 800 MG PO (20:44)
[2024-07-25] MEDS: OXYCODONE HCL/ACETAMINOPHEN 5MG/325MG 2 TAB PO (02:09)
[2024-07-25 04:00] VITALS: BP 113/70; PULSE 56; TEMP 36.4; O2SAT 91
[2024-07-25 06:13] LABS: Basophils Percent Auto 0.1 % (0.2-2.0); Hematocrit 34.5 % (36.0-48.0); Hemoglobin 11.9 g/dL (12.0-16.0); Immature Granulocytes Abs Auto 0.04 10^3/uL (0.00-0.03); Immature Granulocytes Pct Auto 0.3 % (0.0-0.5); Lymphocytes Absolute Auto 1.1 10^3/uL (1.2-3.8); Lymphocytes Percent Auto 8.7 % (20.5-60.0); Mean Corpuscular HGB Conc 34.5 g/dL (29.9-35.2); Mean Corpuscular Volume 83.9 fL (81.0-99.0); Mean Platelet Volume 10.3 fL (9.5-13.5); Monocytes Percent Auto 7.4 % (1.7-12.0); Neutrophils Absolute Auto 10.9 10^3/uL (1.4-6.5); Neutrophils Percent Auto 83.5 % (43.0-75.0); Platelet Count 248 10^3/uL (150-450); Red Blood Count 4.11 10^6/uL (4.20-5.40); Red Cell Distribution Width 11.9 % (11.0-15.0)
[2024-07-25 08:00] VITALS: BP 122/70; PULSE 50; TEMP 36.4; O2SAT 95
[2024-07-25] MEDS: MAGNESIUM HYDROXIDE 2,400 MG/10 ML ORAL.SUSP 2400 MG PO (08:24)
[2024-07-25] MEDS: DOCUSATE SODIUM 100 MG CAPSULE PO (08:24)
[2024-07-25] MEDS: OXYCODONE HCL/ACETAMINOPHEN 5MG/325MG 1 TAB PO (09:32)
--- OUTSIDE RECORDS SUMMARY | 2024-07-25 09:34 | XMS_ITS | CCD ---
Author Organization [facility] Care Team Providers Care Transportation Refrigeration Technician Name Role Phone HAMLET, DR ANAHI Reich [...] Unavailable MD Ayse Preciado Primary Care Provider [phone] MD Ayse Preciado Attending Provider [phone] AYSE PRECIADO Primary Care Physician Gurdeep SWEENEY [...] Unavailable Ayse Preciado MD Primary Care Provider Allergies Allergy Classification Reported Allergen(s) Allergy Type Date of Onset Reaction(s) Facility Sulfonamides (antibiotic) (1 source) Sulfonamides (Antibiotic); Translations: [sulfa drugs] Drug Allergy Eruption of skin (disorder) [facility] (2 sources) Sulfamethoxazole / Trimethoprim Drug Allergy [facility] (7 sources) Sulfamethoxazole; Translations: [sulfamethoxazole] Drug Allergy 11-16-19 [facility] (4 sources) Sulfonamides (Antibiotic); Translations: [Sulfa (Sulfonamide Antibiotics)] Allergy to substance 11-16-19 [facility] (7 sources) Trimethoprim; Translations: [trimethoprim] Drug Allergy 11-16-19 [facility] (2 sources) Sulfonamides (Antibiotic); Translations: [sulfa drugs] Drug allergy Eruption of skin (disorder) [facility] (3 sources) Sulfamethoxazole / Trimethoprim Drug [...] afterwards, # 2 tab(s), Refills(s) 0, Pharmacy: [facility]/pharmacy #[id number] Start Date: 01/29/24 Status: Ordered fluticasone furoate [...] WITH AUTO DIFFon BASOPHILS ABSOLUTE AUTO 0.1 [facility] Basophils/100 WBC (Bld) 0.8 % 0.2 - 2.0 % [facility] Eosinophils/100 WBC (Bld) 2.2 % 0.9 - 7.0 % [facility] Erythrocyte distribution width (RBC) [Ratio] 12.1 % 11.0 - 15.0 % [facility] Hematocrit (Bld) [Volume fraction] 37 % 36.0 - 48.0 % [facility] Hemoglobin (Bld) [Mass/Vol] 12.8 g/dL 12.0 - 16.0 g/dL [facility] IMMATURE GRANULOCYTES ABS AUTO 0.02 [facility] Immature granulocytes/100 WBC (Bld) 0.3 % 0.0 - 0.5 % [facility] LYMPHOCYTES ABSOLUTE AUTO 1.7 [facility] Lymphocytes/100 WBC (Bld) 29.1 % 20.5 - 60.0 % [facility] MCH (RBC) [Entitic mass] 29.3 pg 26.7 - 34.0 pg [facility] MCHC (RBC) [Mass/Vol] 34.6 g/dL 29.9 - 35.2 g/dL [facility] MCV (RBC) [Entitic vol] 84.7 fL 81.0 - 99.0 fL [facility] MONOCYTES ABSOLUTE AUTO 0.5 [facility] Monocytes/100 WBC (Bld) 8.2 % 1.7 - 12.0 % [facility] NEUTROPHILS ABSOLUTE AUTO 3.6 [facility] Neutrophils/100 WBC (Bld) 59.4 % 43.0 - 75.0 % [facility] Platelet mean volume (Bld) [Entitic vol] 10.2 fL 9.5 - 13.5 fL [facility] EO # 0.1 [facility] 242 [facility] RBC 4.37 [facility] WBC 6 [facility] Basophils Auto (Bld) [#/Vol] on 04-11-2024 Basophils (Bld) [#/Vol] 0.0 10 3/uL 0.0-0.1 [facility] Basophils/100 WBC Auto (Bld) on 04-11-2024 Basophils/100 WBC (Bld) 0.8 % 0.2-2.0 [facility] Eosinophils/100 WBC Auto (Bl d)on 04-11-2024 Eosinophils/100 WBC (Bld) 3.3 % 0.9-7.0 [facility] Erythrocyte distribution wid th Auto (RBC) [Ratio]on 04-11-2024 Erythrocyte distribution width (RBC) [Ratio] 12.1 % 11.0-15.0 [facility] Hematocrit Auto (Bld) [Volum e fraction]on 04-11-2024 Hematocrit (Bld) [Volume fraction] 36.5 % 36.0-48.0 [facility] Hemoglobin [Mass/volume] in Bloodon 04-11-2024 Hemoglobin (Bld) [Mass/Vol] 13.1 g/dL 12.0-16.0 [facility] Braden 04-11-2024 L Specimen: [id number] eceived: 04/11/24 Status: ERIC Aguirre Num: [id number] Spec Type: Surgical Subm Dr: Juan Antonio Flynn Tissues: A Cervical Polyp (CERV POLYP) B Endometrium - Curettings (ENDOM CUR) Procedures: HE/4, Gross/Micro L4/2 Age/ Patient Sex Location Account Attending Physician FernandoLiz 59/F [facility] [id number] Juan Antonio Flynn SPEC NUM: [id number] RECD: 04/11/24 STATUS: ERIC AGUIRRE NUM: [id number] MAURY: 04/11/24- SUBM DR: Juan Antonio Flynn ENTERED: 04/11/[address] [facility] [address]: Maciej,Lab SPEC TYPE: Surgical DEPT: NAVYA BENJAMIN ENTERED BY: [id number] RECV BY: [id number] ORDERED: HE/4, Gross/Micro L4/2 ORDERED: HE/4, Gross/Micro [...] x 1.0 x 0.4 cm -------- Specimen: [id number] Received: 04/11/24 Status: ERIC Aguirre Num: [id number] Spec Type: Surgical Subm Dr: Juan Antonio Flynn Tissues: A Cervical Polyp (CERV POLYP) B Endometrium - Curettings (ENDOM CUR) Procedures: HE/Rivka, Jan/Micro L4/2 -------- Patient: Liz King [id number] (Continued) -------- Specimen: [id number] Received: 04/11/24 (Continued) Gross Description (Continued) Signed (signature on file) Carlos Ochoa MD 04/19/24 1050 -------- Specimen: [id number] Received: 04/11/24 Status: ERIC Aguirre Num: [id number] Spec Type: Surgical Subm Dr: Juan Antonio Flynn Tissues: A Cervical Polyp (CERV POLYP) B Endometrium - Curettings (ENDOM CUR) Procedures: HE/4, Gross/Micro L4/2 -------- Patient: Margaret Kingyccate Gallegos [id number] (Continued) -------- Specimen: [id number] Received: 04/11/24 (Continued) Gross Description (Continued) in aggregate. The specimen is entirely submitted in cassette B1. Microscopic Description Microscopic examinations are performed supporting the above interpretation CPT Codes 63981K1 -------- -------- Specimen: [id number] Received: 04/11/24-135 Status: ERIC Aguirre Num: [id number] Spec Type: Surgical Subm Dr: Juan Antonio Flynn Tissues: A Cervical Polyp (CERV POLYP) B Endometrium - Curettings (ENDOM CUR) Procedures: HE/Rivka, Gross/Micro L4/2 -------- Patient: Liz King [id number] (Continued) -------- Signed (signature on file) Floyd Ochoa MD 04/19/24 1050 Normal [facility] Laboratory - Hematology and Cell countson 04-11-2024 Immature granulocytes/100 WBC (Bld) 0.2 % 0.0-0.5 [facility] Leukocytes [#/volume] correc aubrey for nucleated erythrocytes in Blood by Automated counon 04-11-2024 WBC corrected for nucl RBC Auto (Bld) [#/Vol] 5.2 10 3/uL 4.0-11.0 [facility] Lymphocytes Auto (Bld) [#/Vo l]on 04-11-2024 Lymphocytes (Bld) [#/Vol] 1.8 10 3/uL 1.2-3.8 [facility] Lymphocytes/100 WBC Auto (Bl d)on 04-11-2024 Lymphocytes/100 WBC (Bld) 33.8 % 20.5-60.0 [facility] MCH Auto (RBC) [Entitic mass ]on 04-11-2024 MCH (RBC) [Entitic mass] 29.8 pg 26.7-34.0 [facility] MCHC Auto (RBC) [Mass/Vol]on 04-11-2024 MCHC (RBC) [Mass/Vol] 35.9 g/dL High 29.9-35.2 [facility] MCV Auto (RBC) [Entitic vol] on 04-11-2024 MCV (RBC) [Entitic vol] 83.1 fL 81.0-99.0 [facility] Monocytes Auto (Bld) [#/Vol] on 04-11-2024 Monocytes (Bld) [#/Vol] 0.5 10 3/uL 0.3-0.8 [facility] Monocytes/100 WBC Auto (Bld) on 04-11-2024 Monocytes/100 WBC (Bld) 10.0 % 1.7-12.0 [facility] Neutrophils Auto (Bld) [#/Vo l]on 04-11-2024 Neutrophils (Bld) [#/Vol] 2.7 10 3/uL 1.4-6.5 [facility] Neutrophils/100 WBC Auto (Bl d)on 04-11-2024 Neutrophils/100 WBC (Bld) 51.9 % 43.0-75.0 [facility] No Panel Informationon 04-11 Eosinophils # (Auto) 0.2 10 3/uL 0.0-0.7 [facility] Immature Granulocyte # (Auto) 0.01 10 3/uL 0.00-0.03 [facility] Platelet mean volume Auto (B ld) [Entitic vol]on 04-11-2024 Platelet mean volume (Bld) [Entitic vol] 10.0 fL 9.5-13.5 [facility] Platelets Auto (Bld) [#/Vol] on 04-11-2024 Platelets (Bld) [#/Vol] 237 10 3/uL 150-450 [facility] RBC Auto (Bld) [#/Vol]on RBC (Bld) [#/Vol] 4.39 10 6/uL 4.20-5.40 [facility] Inpatient Patient Summaryon 02-19-2024 Inpatient Patient Summary Inpatient Patient Summary [address] [address] Clinical Summary Person Information Name: LIZ KING Age: 59 Years : 1965 Sex: Female PCP: AYSE PRECIADO MD Marital Status: Race: White Ethnicity: Non- or Language: Maltese Visit Id: Visit Reason: KIDNEY STONE Speciality: Acuity: Enc Type: Outpatient Med Service: Surgery Arrival: 02/19/2024 14:32:49 Discharge: Dispo Type: Address: [address] [place] [address] [phone] Provider Notes: Diagnosis: Problems Active Pilar cysts [...] up: With: Address: When: Gurdeep SWEENEY [address], [address], [facility] [address] [place] [id number] Business (1) Comments: The stent has now [...] with Stent Removal Discharge Instructions (Custom) [facility] Main OR Intraoperative Recor don 02-19-2024 Main OR Intraoperative Record Main OR Intraoperative Record IntraOp Document Type FTURO Summary Primary Physician: Gurdeep SWEENEY MD Finalized Date/Time: 02/19/24 15:19:48 Pt. Name: LIZ KING El Dougherty/Sex: 1965 Female Med Rec #: [id number] Physician: Gurdeep SWEENEY MD Financial #: [id number] Pt. Type: O Room/Bed: / Admit/Disch: 02/19/24 14:32:49 - Institution: Case Times FTURO Entry 1 Patient Times In Room 02/19/24 15:10:00 Out Room 02/19/24 15:19:00 Procedure Times Start 02/19/24 15:16:00 Stop 02/19/24 15:16:00 Anesthesia Times Last Modified By: Ludy Dietrich 02/19/24 15:19:36 Case Attendance FTURO Entry 1 Entry 2 Entry 3 Case Attendee Gurdeep SWEENEY MD, Kelsie E McClain PEDIATRIC DENTISTJennifer Role Performed Surgeon - Primary Cadd Operator - Primary Scrub - Primary Time In [...] 02/19/24 15:19 Ludy Dietrich 02/19/24 15:19 Normal [facility] Main OR Preoperative Recordo n 02-19-2024 Main OR Preoperative Record Main OR Preoperative Record Holding Area Document Type FTURO Summary Primary Physician: Gurdeep SWEENEY MD Finalized Date/Time: 02/19/24 14:49:34 Pt. Name: FERNANDOLIZO.B./Sex: 1965 Female Med Rec #: [id number] Physician: Gurdeep SWEENEY MD Financial #: [id number] Pt. Type: O Room/Bed: / Admit/Disch: 02/19/24 [...] TORREY Castelan RN, Ruthann 02/19/24 14:49 Normal [facility] Operative Reporton Operative Report Operative Report Patient: [...] urine/metabolic workup prior to that visit.. Normal [facility] Comment on above: Result Comment: Elec tronically Signed By: Gurdeep SWEENEY MD\.br\Date and Time Signed: 02/19/24 15:22 EDT Outpatient Surgery Discharge Instructionon 02-19-2024 Outpatient Surgery Discharge Instruction Outpatient Surgery Discharge Instruction [place] [id number] Patient Discharge Instructions PERSON INFORMATION Name: LIZ [...] up: With: Address: When: Gurdeep SWEENEY [address], [address], [employer] [address] [place], [place] [id number] [place] (1) Comments: The stent has now been [...] to serve you. Thank you for choosing [facility] Consultation Noteon 02-01-20 Consultation Note [id number]#1.00TIFF [facility] Insurance Correspondence Off iceon 01-30-2024 Insurance Correspondence Office [id number]#1.00TIFF [facility] Operative Reporton Operative Report [id number]#1.00TIFF [facility] Ammonium urate crystals dete ction in stone by infrared spectroscopyon 01-25-2024 Ammonium urate crystals Infrared spectroscopy Ql (Stone) [place] . [facility] Basophils Auto (Bld) [#/Vol] on 06-13-2024 Basophils (Bld) [#/Vol] 0.0 10 3/uL 0.0-0.1 [facility] Basophils/100 WBC Auto (Bld) on 01-25-2024 Basophils/100 WBC (Bld) 0.4 % 0.2-2.0 [facility] Calcium bilirubinate measure menton 01-25-2024 Calcium bilirubinate (Stone) [Mass fraction] TNP . [facility] Calcium carbonate (Stone) [M ass fraction]on 01-25-2024 Stone Calcium Carbonate TNP . [facility] Calcium hydrogen phosphate d ihydrate (Stone) [Mass fraction]on 01-25-2024 Stone Calcium Hydrogen Phosphate TNP . [facility] Calcium oxalate dihydrate cr ystals detection in stone by infrared spectroscopyon 01-25-2024 Calcium oxalate dihydrate crystals Infrared spectroscopy Ql (Stone) 40 % . [facility] Calcium oxalate monohydrate crystal detectionon 01-25-2024 Calcium oxalate monohydrate crystals Infrared spectroscopy Ql (Stone) 60 % . [facility] Calcium phosphate measuremen ton 01-25-2024 Calcium phosphate (Stone) [Mass fraction] TNP . [facility] Calculus analysis interpreta tion in stoneon 01-25-2024 Calculus analysis [Interp] TNP . [facility] Calculus analysis [Interp] Comment . [facility] Comment on above: Calculus received we t. Wet calculi must be dried beforeanalysis, which delays reporting of results. Leaving calculiwet (such as water, saline, blood, urine) may lead tochanges in composition. Physician questions regarding Calculi Analysis contactLabCorp at: [phone]. Calculus analysis with calcu katarina photography interpretation in stoneon 01-25-2024 Calculus analysis with calculus photography [Interp] Comment . [facility] Comment on above: Photograph will foll ow under a separate cover Cellular material measuremen t in stone by estimated (mass/mass)on 01-25-2024 Cellular material Est (Stone) [Mass/Mass] TNP . [facility] Cholesterol [Mass/volume] in Serum or Plasmaon 01-25-2024 Cholesterol [Mass/Vol] TNP . [facility] Composition of stoneon 01-24 Composition Nom (Stone) Comment . [facility] Comment on above: Percentage (Represen ts the % composition) Cystine measurementon 2023 Cystine (Unsp spec) [Moles/Vol] TNP . [facility] Determination of color of ca lculuson 01-25-2024 Color (Stone) Brown . [facility] Eosinophils/100 WBC Auto (Bl d)on 01-25-2024 Eosinophils/100 WBC (Bld) 1.5 % 0.9-7.0 [facility] Erythrocyte distribution wid th Auto (RBC) [Ratio]on 01-25-2024 Erythrocyte distribution width (RBC) [Ratio] 12.5 % 11.0-15.0 [facility] Estimated glomerular filtrat ion rate (GFR) non- Americanon 01-25-2024 GFR/1.73 sq M.predicted among non-blacks MDRD (S/P/Bld) [Vol rate/Area] 57 mL/min/{1.73_m2} Low >=60 [facility] Globulin Calc (S) [Mass/Vol] on 01-25-2024 Globulin (S) [Mass/Vol] 3.5 g/dL [facility] Hematocrit Auto (Bld) [Volum e fraction]on 01-25-2024 Hematocrit (Bld) [Volume fraction] 39.7 % 36.0-48.0 [facility] Hemoglobin [Mass/volume] in Bloodon 01-25-2024 Hemoglobin (Bld) [Mass/Vol] 13.6 g/dL 12.0-16.0 [facility] Laboratory - Chemistry and C hemistry - challengeon 01-25-2024 Albumin [Mass/Vol] 4.2 g/dL 3.4-5.0 [facility] ALP [Catalytic activity/Vol] 87 U/L 46-116 [facility] ALT [Catalytic activity/Vol] 42 U/L 14-59 [facility] AST [Catalytic activity/Vol] 27 U/L 15-37 [facility] Bilirubin [Mass/Vol] 0.4 mg/dL 0.2-1.0 [facility] Calcium [Mass/Vol] 9.4 mg/dL 8.5-10.1 [facility] Chloride [Moles/Vol] 105 mmol/L 98-107 [facility] CO2 [Moles/Vol] 28.5 mmol/L 21.0-32.0 [facility] Creatinine [Mass/Vol] 1.00 mg/dL 0.55-1.02 [facility] GFR/1.73 sq M.predicted MDRD (S/P/Bld) [Vol rate/Area] mL/min/{1.73_m2} >=60 [facility] Glucose [Mass/Vol] 141 mg/dL High 74-106 [facility] Potassium [Moles/Vol] 3.9 mmol/L 3.5-5.1 [facility] Protein [Mass/Vol] 7.7 g/dL 6.4-8.2 [facility] Sodium [Moles/Vol] 140 mmol/L 136-145 [facility] Urea nitrogen [Mass/Vol] 19.0 mg/dL High 7.0-18.0 [facility] Urea nitrogen/Creatinine [Mass ratio] 19.0 mg/mg [facility] Bilirubin Ql (U) Negative NEGATIVE [facility] Glucose (U) [Mass/Vol] Negative NEGATIVE [facility] Ketones Ql (U) Negative NEGATIVE [facility] pH (U) 6.0 [pH] 5.0-9.0 [facility] Specific gravity (U) [Rel density] >=1.030 Abnormal 1.005-1.025 [facility] Urobilinogen Qn (U) 0.2 {Erum'U}/dL 0.2-1.0 [facility] Laboratory - Hematology and Cell countson 01-25-2024 Immature granulocytes/100 WBC (Bld) 0.4 % 0.0-0.5 [facility] Laboratory - Specimen inform ationon 01-25-2024 Appearance (U) CLEAR CLEAR [facility] Color (U) YELLOW YELLOW [facility] Laboratory - Urinalysison Leukocyte esterase Test strip Ql (U) TRACE Abnormal NEGATIVE [facility] Mucus Ql (Urine sed) NONE SEEN NONE SEEN [facility] Nitrite Ql (U) Negative NEGATIVE [facility] Protein Ql (U) 30 mg/dL Abnormal NEG/TRACE [facility] Leukocytes [#/volume] correc aubrey for nucleated erythrocytes in Blood by Automated counon 01-25-2024 WBC corrected for nucl RBC Auto (Bld) [#/Vol] 7.5 10 3/uL 4.0-11.0 [facility] Lymphocytes Auto (Bld) [#/Vo l]on 01-25-2024 Lymphocytes (Bld) [#/Vol] 1.1 10 3/uL Low 1.2-3.8 [facility] Lymphocytes/100 WBC Auto (Bl d)on 01-25-2024 Lymphocytes/100 WBC (Bld) 14.5 % Low 20.5-60.0 [facility] MCH Auto (RBC) [Entitic mass ]on 01-25-2024 MCH (RBC) [Entitic mass] 28.8 pg 26.7-34.0 [facility] MCHC Auto (RBC) [Mass/Vol]on 01-25-2024 MCHC (RBC) [Mass/Vol] 34.3 g/dL 29.9-35.2 [facility] MCV Auto (RBC) [Entitic vol] on 01-25-2024 MCV (RBC) [Entitic vol] 83.9 fL 81.0-99.0 [facility] Measurement of proportion of calculus composed of dried blood (mass/mass)on 01-25-2024 Blood.dried (Stone) [Mass fraction] TNP . [facility] Monocytes Auto (Bld) [#/Vol] on 01-25-2024 Monocytes (Bld) [#/Vol] 0.4 10 3/uL 0.3-0.8 [facility] Monocytes/100 WBC Auto (Bld) on 01-25-2024 Monocytes/100 WBC (Bld) 5.6 % 1.7-12.0 [facility] Neutrophils Auto (Bld) [#/Vo l]on 01-25-2024 Neutrophils (Bld) [#/Vol] 5.9 10 3/uL 1.4-6.5 [facility] Neutrophils/100 WBC Auto (Bl d)on 01-25-2024 Neutrophils/100 WBC (Bld) 77.6 % High 43.0-75.0 [facility] Newberyite crystals detectio n in stone by infrared spectroscopyon 01-25-2024 Newberyite crystals Infrared spectroscopy Ql (Stone) TNP . [facility] No Panel Informationon 01-24 Stone 2,8 Dihydroxyadenine TNP . [facility] Stone Analysis Disclaimer Comment . [facility] Comment on above: Calculi report will follow via computer, mail or courierdelivery. This test was develo ped and its performance characteristicsdetermined by [employer]. It has not been cleared or approvedby the Food and Drug Administration.Performed at: [facility] [id number] Director: Jessica Morales PhD, Phone: [phone] Stone Bilirubinate TNP . [facility] Stone Calcium Palmitate TNP . [facility] Stone Calcium Stearate TNP . [facility] Stone Drug or Metabolite TNP . [facility] Stone Other Constituent TNP . [facility] Stone Xanthine TNP . [facility] Eosinophils # (Auto) 0.1 10 3/uL 0.0-0.7 [facility] Immature Granulocyte # (Auto) 0.03 10 3/uL 0.00-0.03 [facility] Urine Bacteria LARGE #/HPF Abnormal NONE SEEN [facility] Urine Calcium Oxalate Crystals RARE [facility] Urine Culture Reflexed YES [facility] Urine Occult Blood LARGE Abnormal NEGATIVE [facility] Urine Other Casts NONE SEEN #/LPF NONE SEEN [facility] Urine Other Crystals Seen #/HPF Abnormal None Seen [facility] Urine RBC 20-50 #/HPF Abnormal 0-2 [facility] Urine Squamous Epithelial Cells FEW #/LPF Abnormal NONE/RARE [facility] Urine WBC 0-2 #/HPF Abnormal NONE SEEN [facility] Platelet mean volume Auto (B ld) [Entitic vol]on 01-25-2024 Platelet mean volume (Bld) [Entitic vol] 10.2 fL 9.5-13.5 [facility] Platelets Auto (Bld) [#/Vol] on 01-25-2024 Platelets (Bld) [#/Vol] 249 10 3/uL 150-450 [facility] RBC Auto (Bld) [#/Vol]on RBC (Bld) [#/Vol] 4.73 10 6/uL 4.20-5.40 [facility] Serum or plasma albumin/glob ulin mass ratioon 01-25-2024 Albumin/Globulin [Mass ratio] 1.2 {ratio} [facility] Serum or plasma anion gap de terminationon 01-25-2024 Anion gap [Moles/Vol] 10.4 mmol/L [facility] Size [Entitic volume] of Sto neon 01-25-2024 Size (Stone) [Entitic vol] 7x2 mm . [facility] Comment on above: Multiple pieces rece ived. Dimensions of the largest piecereported. Sodium urate crystals detect ion in stone by infrared spectroscopyon 01-25-2024 Sodium urate crystals Infrared spectroscopy Ql (Stone) TNP . [facility] Specimen source subject [Typ e]on 01-25-2024 Specimen source subject Nom Comment . [facility] Comment on above: Left Ureter Triamterene measurement in c alculuson 01-25-2024 Triamterene (Stone) [Mass fraction] TNP . [facility] Triple phosphate/Total in St oneon 01-25-2024 Triple phosphate (Stone) [Mass fraction] TNP . [facility] Uric acid dihydrate crystals detection in stone by infrared spectroscopyon 01-25-2024 Urate dihydrate crystals Infrared spectroscopy Ql (Stone) TNP . [facility] Estimated glomerular filtrat ion rate (GFR) non- Americanon 10-23-2023 GFR/1.73 sq M.predicted among non-blacks MDRD (S/P/Bld) [Vol rate/Area] mL/min/{1.73_m2} >=60 [facility] Laboratory - Chemistry and C hemistry - challengeon 10-23-2023 Calcium [Mass/Vol] 9.4 mg/dL 8.5-10.1 [facility] Chloride [Moles/Vol] 106 mmol/L 98-107 [facility] CO2 [Moles/Vol] 29.6 mmol/L 21.0-32.0 [facility] Creatinine [Mass/Vol] 0.80 mg/dL 0.55-1.02 [facility] GFR/1.73 sq M.predicted MDRD (S/P/Bld) [Vol rate/Area] mL/min/{1.73_m2} >=60 [facility] Glucose [Mass/Vol] 81 mg/dL 74-106 [facility] Potassium [Moles/Vol] 3.8 mmol/L 3.5-5.1 [facility] Sodium [Moles/Vol] 142 mmol/L 136-145 [facility] Urea nitrogen [Mass/Vol] 17.0 mg/dL 7.0-18.0 [facility] Urea nitrogen/Creatinine [Mass ratio] 21.2 mg/mg [facility] No Panel Informationon 10-22 Troponin I High Sensitivity <4.0 pg/mL 4.0-51.3 [facility] Comment on above: CUT-OFF POINTS HAVE [...] terminationon 10-23-2023 Anion gap [Moles/Vol] 10.2 mmol/L [facility] MG MAMM SCREEN 3D ANNA CADon 05-31-2022 MG MAMM SCREEN 3D ANNA CAD Patient: LIZ KING Exam Date: 05/31/2022 : 1965 Gender:F Ordering : DR MIRYAM GUTHRIE D.O. Admission #: [id number] Family : Order #: [id number] CLICK HERE TO VIEW EXAM RADIOLOGY REPORT [...] leukemia cancer at age 80. LOCATION: [facility] BREAST COMPOSITION: Heterogeneously dense,which may obscure small [...] M.D. 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 Admission #: [id number] Family : Order #: [id number] CLICK HERE TO VIEW EXAM RADIOLOGY REPORT PROCEDURE: VEIN CENTER INJECTION SCLEROSING SOLUTION MULTIPLE VEINS SAME COMPARISON: VC INJ SCL ROBERT WELL DRILLER HELPER VEINS, 05/18/2022. 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 Admission #: [id number] Family : Order #: [id number] CLICK HERE TO VIEW EXAM RADIOLOGY REPORT [...] Mcnulty MD on 05/18/2022 at 13:11 Normal [facility] VC CONSULT FOLLOWUPon 2021 VC CONSULT FOLLOWUP Patient: SPENCER KING Exam Date: 05/13/2022 : 1965 Gender:F Ordering : DR ANAHI MCNULTY M.D. Admission #: [id number] Family : Order #: [id number] CLICK HERE TO VIEW EXAM RADIOLOGY REPORT [...] Mcnulty MD on 05/13/2022 at 12:57 Normal [facility] VC EXT VENOUS RT LIMITEDon 0 05-13-2022 VC EXT VENOUS RT LIMITED Patient: LIZ KING Exam Date: 05/13/2022 : 1965 Gender:F Ordering : DR ANAHI MCNULTY M.D. Admission #: [id number] Family : Order #: [id number] CLICK HERE TO VIEW EXAM RADIOLOGY REPORT [...] Mcnulty MD on 05/13/2022 at 12:55 Normal [facility] VC INJ FOAM SCLERO W US MLTI on 05-09-2022 VC INJ FOAM SCLERO W US MLTI Patient: LIZ KING Exam Date: 05/09/2022 : 1965 Gender:F Ordering : DR ANAHI MCNULTY M.D. Admission #: [id number] Family : Order #: [id number] CLICK HERE TO VIEW EXAM RADIOLOGY REPORT [...] needed and (more content not included)... Normal [facility] VC CONSULT FOLLOWUPon 2021 VC CONSULT FOLLOWUP Patient: SPENCER KING. Exam Date: 05/02/2022 : 1965 Gender:F Ordering : DR AANHI MCNULTY M.D. Admission #: [id number] Family : Order #: [id number] CLICK HERE TO VIEW EXAM RADIOLOGY REPORT [...] Bell M.D. on 05/02/2022 at 13:15 Normal [facility] VC EXT VENOUS LT LIMITEDon 0 05-02-2022 VC EXT VENOUS LT LIMITED Patient: LIZ KING Exam Date: 05/02/2022 : 1965 Gender:F Ordering : DR ANAHI MCNULTY M.D. Admission #: [id number] Family : Order #: [id number] CLICK HERE TO VIEW EXAM RADIOLOGY REPORT [...] Bell M.D. on 05/02/2022 at 13:07 Normal [facility] VC INJ FOAM SCLERO W US MLTI on 04-26-2022 VC INJ FOAM SCLERO W US MLTI Patient: LIZ KING Exam Date: 04/26/2022 : 1965 Gender:F Ordering : DR ANAHI MCNULTY M.D. Admission #: [id number] Family : Order #: [id number] CLICK HERE TO VIEW EXAM RADIOLOGY REPORT [...] GSV, (more content not included)... Normal [facility] VC CONSULT FOLLOWUPon 2021 VC CONSULT FOLLOWUP Patient: SPENCER KING. Exam Date: 04/19/2022 : 1965 Gender:F Ordering : DR ANAHI MCNULTY M.D. Admission #: [id number] Family : Order #: [id number] CLICK HERE TO VIEW EXAM RADIOLOGY REPORT [...] Mcnulty MD on 04/19/2022 at 13:56 Normal [facility] VC EXT VENOUS RT LIMITEDon 0 04-19-2022 VC EXT VENOUS RT LIMITED Patient: LIZ KINGShea Exam Date: 04/19/2022 : 1965 Gender:F Ordering : DR ANAHI MCNULTY M.D. Admission #: [id number] Family : Order #: [id number] CLICK HERE TO VIEW EXAM RADIOLOGY REPORT [...] Mcnulty MD on 04/19/2022 at 13:24 Normal [facility] VC ENDOVENOUS ABL 1ST V RTon 04-12-2022 VC ENDOVENOUS ABL 1ST V RT Patient: MARGARET KINGYCCate GallegosShea Exam Date: 04/12/2022 : 1965 Gender:F Ordering : DR ANAHI MCNULTY M.D. Admission #: [id number] Family : Order #: [id number] CLICK HERE TO VIEW EXAM RADIOLOGY REPORT [...] The total number of Joules delivered was 22694. The laser was active for 146 seconds [...] Mcnulty MD on 04/12/2022 at 13:30 Normal [facility] VC CONSULT FOLLOWUPon 2021 VC CONSULT FOLLOWUP Patient: SPENCER KING Exam Date: 03/29/2022 : 1965 Gender:F Ordering : DR ANAHI MCNULTY M.D. Admission #: [id number] Family : Order #: [id number] CLICK HERE TO VIEW EXAM RADIOLOGY REPORT [...] Bell M.D. on 03/29/2022 at 14:07 Normal [facility] VC EXT VENOUS LT LIMITEDon 0 03-29-2022 VC EXT VENOUS LT LIMITED Patient: LIZ KING Exam Date: 03/29/2022 : 1965 Gender:F Ordering : DR ANAHI MCNULTY M.D. Admission #: [id number] Family : Order #: [id number] CLICK HERE TO VIEW EXAM RADIOLOGY REPORT [...] Bell M.D. on 03/29/2022 at 14:02 Normal [facility] VC ENDOVENOUS ABL 1ST V LTon 03-22-2022 VC ENDOVENOUS ABL 1ST V LT Patient: LIZ KING Exam Date: 03/22/2022 : 1965 Gender:F Ordering : DR ANAHI MCNULTY M.D. Admission #: [id number] Family : Order #: [id number] CLICK HERE TO VIEW EXAM RADIOLOGY REPORT [...] Mcnulty MD on 03/22/2022 at 14:03 Normal [facility] VC CONSULT FOLLOWUPon 2021 VC CONSULT FOLLOWUP Patient: SPENCER KING Exam Date: 02/25/2022 : 1965 Gender:F Ordering : DR ANAHI MCNULTY M.D. Admission #: [id number] Family : Order #: [id number] CLICK HERE TO VIEW EXAM RADIOLOGY REPORT [...] Mcnulty MD on 02/25/2022 at 14:12 Normal [facility] VC EXT VENOUS RT LIMITEDon 0 02-25-2022 VC EXT VENOUS RT LIMITED Patient: LIZ KING Exam Date: 02/25/2022 : 1965 Gender:F Ordering : DR ANAHI MCNULTY M.D. Admission #: [id number] Family : Order #: [id number] CLICK HERE TO VIEW EXAM RADIOLOGY REPORT [...] Mcnulty MD on 02/25/2022 at 14:03 Normal [facility] VC CONSULT FOLLOWUPon 2021 VC CONSULT FOLLOWUP Patient: SPENCER KING Exam Date: 02/07/2022 : 1965 Gender:F Ordering : DR ANAHI MCNULTY M.D. Admission #: [id number] Family : Order #: [id number] CLICK HERE TO VIEW EXAM RADIOLOGY REPORT [...] Anahi Mcnulty MD on 02/07/2022 at 12:26 [facility] VC EXT VENOUS RT LIMITEDon 0 02-07-2022 VC EXT VENOUS RT LIMITED Patient: LIZ KING Exam Date: 02/07/2022 : 1965 Gender:F Ordering : DR ANAHI MCNULTY M.D. Admission #: [id number] Family : Order #: [id number] CLICK HERE TO VIEW EXAM RADIOLOGY REPORT [...] Mcnulty MD on 02/07/2022 at 12:06 Normal [facility] VC CONSULT FOLLOWUPon 2021 VC CONSULT FOLLOWUP Patient: SPENCER KING Exam Date: 01/31/2022 : 1965 Gender:F Ordering : DR ANAHI MCNULTY M.D. Admission #: [id number] Family : Order #: [id number] CLICK HERE TO VIEW EXAM RADIOLOGY REPORT [...] Bell M.D. on 01/31/2022 at 15:59 Normal [facility] VC EXT VENOUS RT LIMITEDon 0 01-31-2022 VC EXT VENOUS RT LIMITED Patient: LIZ KING. Exam Date: 01/31/2022 : 1965 Gender:F Ordering : DR ANAHI MCNULTY M.D. Admission #: [id number] Family : Order #: [id number] CLICK HERE TO VIEW EXAM RADIOLOGY REPORT [...] Bell M.D. on 01/31/2022 at 15:40 Normal [facility] VC ENDOVENOUS ABL 1ST V RTon 01-25-2022 VC ENDOVENOUS ABL 1ST V RT Patient: LIZ KING Exam Date: 01/25/2022 : 1965 Gender:F Ordering : DR ANAHI MCNULTY M.D. Admission #: [id number] Family : Order #: [id number] CLICK HERE TO VIEW EXAM RADIOLOGY REPORT [...] 36 cm from the entry 10 cm [id number]-vqrt to 3 cm below the saphenofemoral junction. [...] Bell M.D. on 01/25/2022 at 14:30 Normal [facility] VC COMP CONSULTATIONon 12-23 VC COMP CONSULTATION Patient: LIZ KING Exam Date: 12/23/2021 : 1965 Gender:F Ordering : DR AYSE PRECIADO M.D. 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 The patient's symptoms are relieved by rest, [...] MD on 12/23/2021 at 13:56 Normal [facility] VC VENOUS REFLUX ANNA LMTon 0 12-23-2021 VC VENOUS REFLUX ANNA LMT Patient: LIZ KING Exam Date: 12/23/2021 : 1965 Gender:F Ordering : DR AYSE PRECIADO M.D. Admission #: [id number] Family : Order #: [id number] CLICK HERE TO VIEW EXAM RADIOLOGY REPORT [...] area of thrombus. Deep venous reflux visualized. Agricultural Inspector: Dist/med calf 4.2 mm, 3.8s. Dist calf [...] 12/23/2021 at 12:48 Normal [facility] US SHANIA DOP LEG LTon 12-14-19 22 [...] by: JAYY BELL Date: 2021-12-13 12:41 Normal [facility] Vital Signs Date Time Vital Sign Value Performing Clinician Fredricki lity 06-25-2024 13:36-0500 Body height 165.1 cm Juan Antonio Rina DO Work Phone: [facility] 06-25-2024 13:36-0500 Body mass index (BMI) [Ratio] 36.11 kg/m2 Juan Antonio Rina DO Work Phone: [facility] 06-25-2024 13:36-0500 Body weight 98.43 kg Juan Antonio Rina DO Work Phone: [facility] 06-25-2024 13:36-0500 Diastolic blood pressure 70 mm[Hg] Juan Antonio Rina DO Work Phone: [facility] 06-25-2024 13:36-0500 Systolic blood pressure 122 mm[Hg] Juan Antonio Rina DO Work Phone: [facility] 02-01-2024 14:32-0400 Body height 165.1 cm [facility] 02-01-2024 14:32-0400 Body mass index (BMI) [Ratio] 34.6 kg/m2 [facility] 02-01-2024 14:32-0400 Body weight 94.34 kg [facility] 02-01-2024 14:32-0400 Diastolic blood pressure 75 mm[Hg] [facility] 02-01-2024 14:32-0400 Heart rate 63 /min [facility] 02-01-2024 14:32-0400 Systolic blood pressure 121 mm[Hg] [facility] 01-25-2024 16:12-0400 Body weight 57 mg MD Ayse Preciado Work Phone: [facility] 11-16-2023 14:56-0400 Body height 165.1 cm MD Ayse Preciado Work Phone: [facility] 11-16-2023 14:56-0400 Body mass index (BMI) [Ratio] 34.7 kg/m2 MD Ayse Preciado Work Phone: [facility] 11-16-2023 14:56-0400 Body weight 94.51 kg MD Ayse Preciado Work Phone: [facility] 11-16-2023 14:56-0400 Diastolic blood pressure 81 mm[Hg] MD Ayse Preciado Work Phone: [facility] 11-16-2023 14:56-0400 Heart rate 70 /min MD Ayse Preciado Work Phone: [facility] 11-16-2023 14:56-0400 Systolic blood pressure 131 mm[Hg] MD Ayse Preciado Work Phone: [facility] 10-23-2023 14:13-0400 Body height 165.1 cm MD Ayse Preciado Work Phone: [facility] 10-23-2023 14:13-0400 Body mass index (BMI) [Ratio] 34.4 kg/m2 MD Ayse Preciado Work Phone: [facility] 10-23-2023 14:13-0400 Body weight 94 kg MD Ayse Preciado Work Phone: [facility] 10-23-2023 14:13-0400 Diastolic blood pressure 90 mm[Hg] MD Ayse Preciado Work Phone: [facility] 10-23-2023 14:13-0400 Heart rate 62 /min MD Ayse Preciado Work Phone: [facility] 10-23-2023 14:13-0400 Systolic blood pressure 134 mm[Hg] MD Ayse Preciado Work Phone: [facility] Encounters Encounter Date Encounter Type Care [...] 04-11-2024 ambulatory MD Ayse Preciado Work Phone: [facility] Work Phone: Start: 04-11-2024 End: 04-11-2024 Departed Referred MD Ayse Preciado Work Phone: [facility] Start: 04-11-2024 Non-patient / Non-visit MD Zoey Preciado [facility] Phone[facility] Work Phone: Start: 02-19-2024 End: 02-19-2024 ambulatory Gurdeep SWEENEY [place] Start: 02-19-2024 End: 02-19-2024 Patient encounter procedure Gurdeep SWEENEY [facility] Start: 02-07-2024 End: 02-07-2024 ambulatory Gurdeep SWEENEY Facility:[facility] Start: 02-07-2024 End: 02-07-2024 Patient encounter procedure Gurdeep SWEENEY [facility] Start: 02-01-2024 End: 02-01-2024 ambulatory [facility] Work Phone: Start: 02-01-2024 End: 02-01-2024 Patient encounter procedure [facility] Work Phone: Start: 01-26-2024 ambulatory Gurdeep SWEENEY Facility:[facility] Start: 01-25-2024 Non-patient / Non-visit [facility] Work Phone: Start: 01-25-2024 End: 01-25-2024 ambulatory Gurdeep SWEENEY Facility:[id number] Start: 11-16-2023 End: 11-16-2023 ambulatory MD Ayse Preciado Work Phone: [facility] Work Phone: Start: 11-16-2023 End: 11-16-2023 Patient encounter procedure MD Ayse Preciado Work Phone: [facility] Work Phone: Start: 10-23-2023 End: 10-23-2023 ambulatory Ayse Preciado Facility:[facility] Start: 10-23-2023 End: 10-23-2023 Patient encounter procedure MD Ayse Preciado Work Phone: [facility] Work Phone: Start: 05-31-2022 End: 06-01-2022 [...] for malign ant neoplasm of breast Mammogram [facility] Start: 08-01-2024 End: 08-01-2024 Patient encounter procedure 08/01/2024 10:50 AM EST Office Visit [facility] [address] [place] [address] Juan Antonio Flynn, DO [address] [place] [address] [facility] Start: 04-14-2024 Influenza vaccination Influenza Vacc ine (#1) [facility] Start: 02-01-2024 Patient referral [facility] Work Phone: Start: 10-23-2023 EKG 12 channel panel [facility] Start: 1995 Screening for malign ant neoplasm of cervix [facility] Start: 1986 Screening for malign ant neoplasm of cervix Pap Smear [facility] Start: 1965 Screening for malign ant neoplasm of colon [facility] Patient referral [facility] Work Phone: [facility] Payers Date Payer Category Payer Self-pay 2023 Unknown [id number] 2023 Private Health Insurance [employer] [id number] 1965 Unknown [id number] 2.16840.1.802383.3.579.2. 593 1965 Unknown [id number] 2.16840.1.533860.3.579.2. 593 1965 Unknown [id number] 2.16840.1.478632.3.579.2. 593 1965 Unknown [id number] 2.16840.1.493229.3.579.2. 593 1965 Unknown [id number] 2.16840.1.216595.3.579.2. 593 1965 Unknown [id number] 2.16840.1.611911.3.579.2. 593 1965 Unknown [id number] 2.16840.1.313056.3.579.2. 593 1965 Unknown [id number] 2.16840.1.180678.3.579.2. 593 1965 Unknown [id number] 2.16840.1.609977.3.579.2. 593 1965 Unknown [id number] 2.16840.1.013139.3.579.2. 593 1965 Unknown [id number] 2.16840.1.676608.3.579.2. 593 1965 Unknown [id number] 2.16840.1.480181.3.579.2. 593 1965 Unknown [id number] 2.16840.1.230868.3.579.2. 593 1965 Unknown [id number] 2.16.840.1.475343.3.579.2. 593 1965 Unknown [id number] 2.16.840.1.663915.3.579.2. 593 1965 Unknown [id number] 2.16.840.1.336174.3.579.2. 593 1965 Unknown [id number] 2.16.840.1.406219.3.579.2. 593 1965 Unknown [id number] 2.16.840.1.733466.3.579.2. 593 1965 Unknown [id number] 2.16840.1.618043.3.579.2. 593 1965 Unknown [id number] 2.16840.1.552838.3.579.2. 593 1965 Unknown [id number] 2.16840.1.770252.3.579.2. 593 1965 Unknown [id number] 2.16840.1.781818.3.579.2. 727 1965 Unknown [id number] 2.16840.1.004768.3.579.2. 727 1965 Unknown [id number] 2.16840.1.123206.3.579.2. 727 1965 Unknown [id number] 2.16840.1.929562.3.579.2. 727 1959 Unknown [id number] Unknown [id number] 2.16840.1.474388.3.579.2. 531 Unknown [id number] 2.16840.1.028139.3.579.2. 531 Social History Date Type Detail Facility Start: 12-16-2020 End: 10-23-2023 Tobacco smoking status MSIS Never smoked tobacco (finding) [facility] Start: 1965 Sex Assigned At Female [facility] Sex Assigned At Female [facility] Tobacco smoking status [email or web address] Tobacco smoking consumption unknown [facility] Start: 04-18-2024 Gender identity Identifies as female gender (finding) [facility] Clinical Notes 02-01-2024 to 06-25-2024 Patricia Cervantes [...] on 07/24/[address] Flynn at [facility]. MEDICATIONS Current Outpatient Medications Medication Instructions amLODIPine [...] nursing note reviewed. Exam conducted with a on site manager present. Vitals: Estimated body mass index is [...] reviewed, and patient is to proceed to [facility] OR. Follow Up: Patient is to follow up at 1 & 6 weeks post operative to assess proper healing and recovery from procedure. Documented by Janina Garcia LPN on behalf of: Juan Antonio Flynn DO documented in this encounter [facility] 02-19-2024 Hospital Discharg e instructions Patient Education [...] Care 01/29/2024 11:42:41 With:Gurdeep SWEENEY Address: [address] [place], [place] [id number] Business (1) When: Unknown Comments:The stent has [...] decision at any time.Have a great day. [facility] 02-19-2024 Note Patient Education Cystoscopy with Stent [...] you have a fever over 100 degrees. [facility] 02-01-2024 Hospital Discharg e instructions Ambulatory OrdersReferral to THERMIT WELDING MACHINE OPERATOR Time Frame: 02/01/24, Location: [facility] Work Phone: Evaluation + Plan note Future Appointments Appointment Date:02/12/2024 08:00:00 AM Scheduled Provider: Location:[facility] Appointment Type:Urology CALL PAT FT Appointment Date:02/19/2024 03:15:00 PM Scheduled Provider: Location:[facility] Appointment Type:Urology FT [facility] Evaluation + Plan note Future Appointments Appointment Date:09/03/2024 02:30:00 PM Scheduled Provider:Gurdeep SWEENEY MD Location:[facility] Appointment Type:URO Office Visit [facility] Evaluation note Diagnosis Onset Date Epigastric abdominal pain ac brock HTN (hypertension) acute [facility] Work Phone: evaluation note* Diagnosis Onset Date Resolution Status HTN (hypertension) acute Uterine mass [facility] Work Phone: evaluation note* Diagnosis Onset Date Resolution Status HTN (hypertension) acute Nephrolithiasis acute Uterine mass [facility] Work Phone: Evaluation note* Diagnosis Pre-op examination Enlarged uterus Hypertrophy of uterus Pelvic pain in female Unspecified symptom associated with female genital organs documented [facility] Narrative No data available for this section [facility] Hospital Discharge instructions No data available for this section [facility] progress note No data available for this section [facility] Summary Purpose Family History Relationship Condition Age [...] AUTHOR'S ORGANIZ ATION 02/27/2024 [facility] DATE CREATED AUTHOR AUTHOR'S ORGANIZ ATION 04/21/2024 [facility] Care Teams (unrecognized sec tion and [...] November 16, 2023 End: November 16, 2023 Transportation Refrigeration Technician Relationship Specialty Start Date End Date Ayse Preciado MD [address] [place] [address] PCP - General Family Medicine 02/22/24 Transportation Refrigeration Technician Relationship Specialty Start Date End Date Ayse Preciado MD [address] [place] [address] PCP - General Family Medicine 02/22/24 Goals [...] BE BASED ON THE PRIMARY CLINICAL RECORDS. [employer] provides no warranty or guarantee of the accuracy or completeness of information in this document.
[2024-07-25 11:00] VITALS: BP 99/53; PULSE 60; TEMP 36.6; O2SAT 94
--- NOTE | 2024-07-25 13:04 | PM.GYNPN2 ---
CHANGE MANAGEMENT LEAD - PN: Subj Post-Op Interval history: denies cp sob ct denies calf tenderness, positive flatus Subjective: patient reports feeling better, patient has no complaints, patient desires discharge, pain is well controlled and patient is tolerating oral intake Exam Constitutional Vital Signs, click to edit/add: Last Vital Signs Temp 97.8 F 07/25/24 11:00 Pulse 60 07/25/24 11:00 Resp 18 07/25/24 11:00 BP 99/53 07/25/24 11:00 Pulse Ox 94 L 07/25/24 11:00 O2 Del Method Room Air 07/25/24 11:00 O2 Flow Rate 2 07/24/24 15:49 Documenting provider has reviewed patient's vital signs: yes Common normals: no apparent distress Respiratory Common normals: normal respiratory effort and clear to auscultation bilaterally Cardio Common normals: regular rate and regular rhythm GI Common normals: Normal to inspection, nondistended, normoactive bowel sounds present Extremity Common normals: no clubbing, cyanosis or edema Results Labs Labs: Short CBC 07/25/24 Range/Units 05:49 WBC 13.0 H (4.0-11.0) 10^3/uL Hgb 11.9 L (12.0-16.0) g/dL Hct 34.5 L (36.0-48.0) % Plt Count 248 (150-450) 10^3/uL CHANGE MANAGEMENT LEAD - A/P Postoperative Procedures: Procedures Operation Date: 07/24/24 07:30 Actual Procedure Side Surgeon p Total abdominal hysterectomy, bilateral salpingo-oopherectomy, cystoscopy Not Applicable Juan Antonio Flynn DO Postoperative day: 1 Postoperative status CHANGE MANAGEMENT LEAD: doing well Post-operative plan CHANGE MANAGEMENT LEAD: routine post-op care and discharge Fall Risk Details Castaneda fall scale risk level: Low Fall Risk Current medications: Current Medications Docusate Sodium (Docusate Sodium 100 Mg Capsule) 100 mg PO BID PRN PRN Reason: Constipation Last Admin: 07/25/24 08:24 Dose: 100 mg Enoxaparin Sodium (Enoxaparin Sodium 40 Mg/0.4 Ml Syringe) 40 mg SUBQ Q24H CHANTEL Last Admin: 07/24/24 20:43 Dose: 40 mg Lactated Ringer's (Lactated Ringers) 1,000 mls @ 125 mls/hr IV .Q8H CHANTEL Last Admin: 07/25/24 11:12 Dose: Not Given Promethazine HCl 25 mg/ Sodium (Chloride) 51 mls @ 204 mls/hr IV Q6H PRN PRN Reason: Nausea And Vomiting Ibuprofen (Ibuprofen 400 Mg Tablet) 800 mg PO Q6H PRN PRN Reason: Pain Last Admin: 07/24/24 20:44 Dose: 800 mg Ketorolac Tromethamine (Ketorolac Tromethamine 30 Mg/Ml Vial) 30 mg IVP Q6H PRN PRN Reason: Pain Last Admin: 07/24/24 23:08 Dose: 30 mg Ondansetron HCl (Ondansetron Pf 4 Mg/2 Ml Vial) 4 mg IV Q6H PRN PRN Reason: Nausea Oxycodone/Acetaminophen (Oxycodone Hcl/Acetaminophen 5mg/325mg) 2 tab PO Q6H PRN PRN Reason: Pain Last Admin: 07/25/24 02:09 Dose: 2 tab Oxycodone/Acetaminophen (Oxycodone Hcl/Acetaminophen 5mg/325mg) 1 tab PO Q6H PRN PRN Reason: Pain Last Admin: 07/25/24 09:32 Dose: 1 tab Simethicone (Simethicone 80 Mg Tab.Chew) 80 mg PO PCHS PRN PRN Reason: Abdominal Distention Last Admin: 07/24/24 20:44 Dose: 80 mg Temazepam (Temazepam 15 Mg Capsule) 30 mg PO QHS PRN PRN Reason: Sleep Time Spent With Patient Time: Total time spent is greater than 50% in coordination of care (as documented) at patient's floor/unit and/or counseling patient: Time with patient: less than 15 minutes Urinary Catheter Management Urinary Catheter Management Urethral: Cath placed during this visit: no
--- OUTSIDE RECORDS SUMMARY | 2024-07-26 11:40 | XMS_ITS | CCD ---
Author Organization [facility] Care Team Providers Care Solar Sales Rep Name Role Phone HAMLET, DR ANAHI Reich [...] DR WITT Primary Care Unavailable WEST, DR NAAHI Reich Consulting Unavailable ZIEBJAKE, DR JAYY Santos [...] DR WITT Primary Care Unavailable WEST, DR ANHAI Reich Consulting Unavailable WEST, DR ANAHI Reich [...] DR ANAHI Reich Admitting Unavailable WEST, DR ANHAI Reich Attending Unavailable BALL, DR WITT Primary [...] WEST, DR ANAHI Reich Consulting Unavailable MD Ayes Preciado Primary Care Provider [phone] MD Ayse Preciado Attending Provider [phone] AYSE PRECIADO Primary Care Physician Gurdeep SWEENEY [...] drugs] Drug Allergy Eruption of skin (disorder) [facility] (2 sources) Sulfamethoxazole / Trimethoprim Drug Allergy [facility] (8 sources) Sulfamethoxazole; Translations: [sulfamethoxazole] Drug Allergy 11-16-19 [facility] (4 sources) Sulfonamides (Antibiotic); Translations: [Sulfa (Sulfonamide Antibiotics)] Allergy to substance 11-16-19 [facility] (8 sources) Trimethoprim; Translations: [trimethoprim] Drug Allergy 11-16-19 [facility] (2 sources) Sulfonamides (Antibiotic); Translations: [sulfa drugs] Drug allergy Eruption of skin (disorder) [facility] (4 sources) Sulfamethoxazole / Trimethoprim Drug Allergy 02-22-20 [facility] Work Phone: (4 sources) Sulfonamides (Antibiotic) Drug Allergy 02-01-20 [facility] Work Phone: Medications Current Medications Medication Drug Class(es) Dates Sig (Normalized) Sig (Original) amLODIPine 10 mg oral tablet (11 sources) Dihydropyridine Calcium Channel Jose Start: 02-01-2024 [...] # 2 tab(s), Refills(s) 0, Pharmacy: [facility]/pharmacy #[id number] Start Date: 01/29/24 Status: Ordered fluticasone furoate [...] Status: Start; Refills: 1; Provider: Samuel Madsen (16 sources) Angiotensin 2 Receptor Jose Start: 03-11-2024 take 1 tablet by mouth once daily Losartan Active 0 .ROUTE .COMPLEX 90 March 11, 2024 9:17am TAKE 1 TABLET [...] Problem Classification Problem Date Documented Date Episodic/Chronic Abdominal pain (10 sources) Epigastric pain; Translations: [Epigastric pain] Onset: 10-23-2023 10-23-2023 Episodic Other aftercare (4 sources) Surgical follow-up; Translations: [Encounter for follow-up examination after completed treatment for conditions other than malignant neoplasm] Onset: 04-18-2024 04-18-2024 Episodic Other connective tissue disease (4 sources) Other specified soft tissue disorders; Translations: [OTHER SPEC SOFT TISSUE DISORDERS] Onset: 12-13-2021 Episodic Other female genital disorders (6 sources) Mass of uterus; Translations: [Other specified noninflammatory disorders of uterus] Onset: 02-22-2024 02-01-2024 Episodic Other female genital disorders (5 sources) Enlarged uterus; Translations: [Hypertrophy of uterus] Onset: 04-18-2024 04-18-2024 Episodic Results Test Name Value Interpretation Reference Range Facility ALL TYPE AND SCREENon 2023 ABO and Rh group Nom (Bld) Blood group A Rh(D) negative [facility] , [facility] ALL CBC WITH AUTO DIFFon BASOPHILS ABSOLUTE AUTO 0.1 [facility] Basophils/100 WBC (Bld) 0.8 % 0.2 - 2.0 % [facility] Eosinophils/100 WBC (Bld) 2.2 % 0.9 - 7.0 % [facility] Erythrocyte distribution width (RBC) [Ratio] 12.1 % 11.0 - 15.0 % [facility] Hematocrit (Bld) [Volume fraction] 37 % 36.0 - 48.0 % [facility] Hemoglobin (Bld) [Mass/Vol] 12.8 g/dL 12.0 - 16.0 g/dL [facility] IMMATURE GRANULOCYTES ABS AUTO 0.02 [facility] Immature granulocytes/100 WBC (Bld) 0.3 % 0.0 - 0.5 % [facility] LYMPHOCYTES ABSOLUTE AUTO 1.7 [facility] Lymphocytes/100 WBC (Bld) 29.1 % 20.5 - 60.0 % [facility] MCH (RBC) [Entitic mass] 29.3 pg 26.7 - 34.0 pg [facility] MCHC (RBC) [Mass/Vol] 34.6 g/dL 29.9 - 35.2 g/dL [facility] MCV (RBC) [Entitic vol] 84.7 fL 81.0 - 99.0 fL [facility] MONOCYTES ABSOLUTE AUTO 0.5 [facility] Monocytes/100 WBC (Bld) 8.2 % 1.7 - 12.0 % [facility] NEUTROPHILS ABSOLUTE AUTO 3.6 [facility] Neutrophils/100 WBC (Bld) 59.4 % 43.0 - 75.0 % [facility] Platelet mean volume (Bld) [Entitic vol] 10.2 fL 9.5 - 13.5 fL [facility] PLT 242 [facility] RBC 4.37 [facility] WBC 6 [facility] Basophils Auto (Bld) [#/Vol] on 04-11-2024 Basophils (Bld) [#/Vol] 0.0 10 3/uL 0.0-0.1 [facility] Basophils/100 WBC Auto (Bld) on 04-11-2024 Basophils/100 WBC (Bld) 0.8 % 0.2-2.0 [facility] Eosinophils/100 WBC Auto (Bl d)on 04-11-2024 Eosinophils/100 WBC (Bld) 3.3 % 0.9-7.0 [facility] Erythrocyte distribution wid th Auto (RBC) [Ratio]on 04-11-2024 Erythrocyte distribution width (RBC) [Ratio] 12.1 % 11.0-15.0 [facility] Hematocrit Auto (Bld) [Volum e fraction]on 04-11-2024 Hematocrit (Bld) [Volume fraction] 36.5 % 36.0-48.0 [facility] Hemoglobin [Mass/volume] in Bloodon 04-11-2024 Hemoglobin (Bld) [Mass/Vol] 13.1 g/dL 12.0-16.0 [facility] Braden 04-11-2024 L Specimen: [id number] eceived: 04/11/24 Status: ERIC Aguirre Num: [id number] Spec Type: Surgical Subm Dr: Juan Antonio Flynn Tissues: A Cervical Polyp (CERV POLYP) B Endometrium - Curettings (ENDOM CUR) Procedures: HE/4, Gross/Micro L4/2 Age/ Patient Sex Location Account Attending Physician Liz King 59/F LABELL [id number] Juan Antonio Flynn SPEC NUM: [id number] RECD: 04/11/24 STATUS: ERIC AGUIRRE NUM: [id number] MAURY: 04/11/24- SUBM DR: Juan Antonio Flynn ENTERED: 04/11/24 [facility] DR: Maciej,Lab SPEC TYPE: Surgical DEPT: NAVYA BENJAMIN ENTERED BY: [id number] RECV BY: [id number] ORDERED: HE/4, Gross/Micro L4/2 ORDERED: HE/4, Gross/Micro [...] x 1.0 x 0.4 cm -------- Specimen: [id number] Received: 04/11/24 Status: ERIC Timothy Num: [id number] Spec Type: Surgical Subm Dr: Juan Antonio Flynn Tissues: A Cervical Polyp (CERV POLYP) B Endometrium - Curettings (ENDOM CUR) Procedures: LU/Jan Tineo/Perez L4/2 -------- Patient: Liz King [id number] (Continued) -------- Specimen: [id number] Received: 04/11/24 (Continued) Gross Description (Continued) Signed (signature on file) Floyd Ochoa MD 04/19/24 7450 -------- Specimen: [id number] Received: 04/11/24 Status: ERIC Aguirre Num: [id number] Spec Type: Surgical Subm Dr: Juan Antonio Flynn Tissues: A Cervical Polyp (CERV POLYP) B Endometrium - Curettings (ENDOM CUR) Procedures: HE/Rivka, Gross/Micro L4/2 -------- Patient: Margaret Kingyccate Gallegos [id number] (Continued) -------- Specimen: [id number] Received: 04/11/24 (Continued) Gross Description (Continued) in aggregate. The specimen is entirely submitted in cassette B1. Microscopic Description Microscopic examinations are performed supporting the above interpretation CPT Codes 65364J2 -------- -------- Specimen: [id number] Received: 04/11/24 Status: ERIC Aguirre Num: [id number] Spec Type: Surgical Subm Dr: Juan Antonio Flynn Tissues: A Cervical Polyp (CERV POLYP) B Endometrium - Curettings (ENDOM CUR) Procedures: BARRON, Jan/Micro L4/2 -------- Patient: Liz King [id number] (Continued) -------- Signed (signature on file) Floyd Ochoa MD 04/19/24 1050 Normal [facility] Laboratory - Hematology and Cell countson 04-11-2024 Immature granulocytes/100 WBC (Bld) 0.2 % 0.0-0.5 [facility] Leukocytes [#/volume] correc aubrey for nucleated erythrocytes in Blood by Automated counon 04-11-2024 WBC corrected for nucl RBC Auto (Bld) [#/Vol] 5.2 10 3/uL 4.0-11.0 [facility] Lymphocytes Auto (Bld) [#/Vo l]on 04-11-2024 Lymphocytes (Bld) [#/Vol] 1.8 10 3/uL 1.2-3.8 [facility] Lymphocytes/100 WBC Auto (Bl d)on 04-11-2024 Lymphocytes/100 WBC (Bld) 33.8 % 20.5-60.0 [facility] MCH Auto (RBC) [Entitic mass ]on 04-11-2024 MCH (RBC) [Entitic mass] 29.8 pg 26.7-34.0 [facility] MCHC Auto (RBC) [Mass/Vol]on 04-11-2024 MCHC (RBC) [Mass/Vol] 35.9 g/dL High 29.9-35.2 [facility] MCV Auto (RBC) [Entitic vol] on 04-11-2024 MCV (RBC) [Entitic vol] 83.1 fL 81.0-99.0 [facility] Monocytes Auto (Bld) [#/Vol] on 04-11-2024 Monocytes (Bld) [#/Vol] 0.5 10 3/uL 0.3-0.8 [facility] Monocytes/100 WBC Auto (Bld) on 04-11-2024 Monocytes/100 WBC (Bld) 10.0 % 1.7-12.0 [facility] Neutrophils Auto (Bld) [#/Vo l]on 04-11-2024 Neutrophils (Bld) [#/Vol] 2.7 10 3/uL 1.4-6.5 [facility] Neutrophils/100 WBC Auto (Bl d)on 04-11-2024 Neutrophils/100 WBC (Bld) 51.9 % 43.0-75.0 [facility] No Panel Informationon 04-11 Eosinophils # (Auto) 0.2 10 3/uL 0.0-0.7 [facility] Immature Granulocyte # (Auto) 0.01 10 3/uL 0.00-0.03 [facility] Platelet mean volume Auto (B ld) [Entitic vol]on 04-11-2024 Platelet mean volume (Bld) [Entitic vol] 10.0 fL 9.5-13.5 [facility] Platelets Auto (Bld) [#/Vol] on 04-11-2024 Platelets (Bld) [#/Vol] 237 10 3/uL 150-450 [facility] RBC Auto (Bld) [#/Vol]on RBC (Bld) [#/Vol] 4.39 10 6/uL 4.20-5.40 [facility] Inpatient Patient Summaryon 02-19-2024 Inpatient Patient Summary Inpatient Patient Summary [address] [address] Clinical Summary Person Information Name: LIZ KING Age: 59 Years : 1965 Sex: Female PCP: AYSE PRECIADO MD Marital Status: Race: White Ethnicity: Non- or Language: Turkish Visit Id: Visit Reason: KIDNEY STONE Speciality: Acuity: Enc Type: Outpatient Med Service: Surgery Arrival: 02/19/2024 14:32:49 Discharge: Dispo Type: Address: [address] [place] [address] [id number] Provider Notes: Diagnosis: Problems Active Pilar cysts [...] up: With: Address: When: Gurdeep SWEENEY [address], [address], [address] [address] Business (1) Comments: The stent [...] Cystoscopy with Stent Removal Discharge Instructions (Custom) Normal [facility] Main OR Intraoperative Recor don 02-19-2024 Main OR Intraoperative Record Main OR Intraoperative Record IntraOp Document Type FTURO Summary Primary Physician: Gurdeep SWEENEY MD Finalized Date/Time: 02/19/24 15:19:48 Pt. Name: FERNANDOLIZ/Sex: 1965 Female Med Rec #: [id number] Physician: Gurdeep SWEENEY MD Financial #: [id number] Pt. Type: O Room/Bed: / Admit/Disch: 02/19/24 [...] Kimberly A Role Performed Surgeon - Primary Assembling Machine Operator - Primary Scrub - Primary Time [...] 02/19/24 15:19 Ludy Dietrich 02/19/24 15:19 Normal [facility] Main OR Preoperative Recordo n 02-19-2024 Main OR Preoperative Record Main OR Preoperative Record Holding Area Document Type FTURO Summary Primary Physician: Gurdeep SWEENEY MD Finalized Date/Time: 02/19/24 14:49:34 Pt. Name: FERNANDOLIZ./Sex: 1965 Female Med Rec #: [id number] Physician: Gurdeep SWEENEY MD Financial #: [id number] Pt. Type: O Room/Bed: / Admit/Disch: 02/19/24 [...] TORREY Castelan RN, Ruthann 02/19/24 14:49 Normal [facility] Operative Reporton Operative Report Operative Report Patient: [...] urine/metabolic workup prior to that visit.. Normal [facility] Comment on above: Result Comment: Elec tronically Signed By: Gurdeep SWEENEY MD\.br\Date and Time Signed: 02/19/24 15:22 EDT Outpatient Surgery Discharge Instructionon 02-19-2024 Outpatient Surgery Discharge Instruction Outpatient Surgery Discharge Instruction [address] [address] Patient Discharge Instructions PERSON INFORMATION Name: LIZ [...] Follow up: With: Address: When: Gurdeep SWEENEY [address] [place] [address], [address], [address] [address] Business (1) Comments: The stent [...] you have a fever over 100 degrees. IJORGEJAKE LIZ F, have received the attached patient education [...] to serve you. Thank you for choosing [facility] Consultation Noteon 02-01-20 24 Consultation Note [id number]#1.00TIFF [facility] Insurance Correspondence Off iceon 01-30-2024 Insurance Correspondence Office [id number]#1.00TIFF [facility] Operative Reporton Operative Report [id number]#1.00TIFF [facility] Ammonium urate crystals dete ction in stone by infrared spectroscopyon 01-25-2024 Ammonium urate crystals Infrared spectroscopy Ql (Stone) TNP . [facility] Basophils Auto (Bld) [#/Vol] on 01-25-2024 Basophils (Bld) [#/Vol] 0.0 10 3/uL 0.0-0.1 [facility] Basophils/100 WBC Auto (Bld) on 01-25-2024 Basophils/100 WBC (Bld) 0.4 % 0.2-2.0 [facility] Calcium bilirubinate measure menton 01-25-2024 Calcium bilirubinate (Stone) [Mass fraction] TNP . [facility] Calcium carbonate (Stone) [M ass fraction]on 01-25-2024 Stone Calcium Carbonate TNP . [facility] Calcium hydrogen phosphate d ihydrate (Stone) [Mass fraction]on 01-25-2024 Stone Calcium Hydrogen Phosphate TNP . [facility] Calcium oxalate dihydrate cr ystals detection in stone by infrared spectroscopyon 01-25-2024 Calcium oxalate dihydrate crystals Infrared spectroscopy Ql (Stone) 40 % . [facility] Calcium oxalate monohydrate crystal detectionon 01-25-2024 Calcium oxalate monohydrate crystals Infrared spectroscopy Ql (Stone) 60 % . [facility] Calcium phosphate measuremen ton 01-25-2024 Calcium phosphate (Stone) [Mass fraction] TNP . [facility] Calculus analysis interpreta tion in stoneon 01-25-2024 Calculus analysis [Interp] TNP . [facility] Calculus analysis [Interp] Comment . [facility] Comment on above: Calculus received we t. Wet calculi must be dried beforeanalysis, which delays reporting of results. Leaving calculiwet (such as water, saline, blood, urine) may lead tochanges in composition. Physician questions regarding Calculi Analysis contactLabCorp at: [phone]. Calculus analysis with calcu katarina photography interpretation in stoneon 01-25-2024 Calculus analysis with calculus photography [Interp] Comment . [facility] Comment on above: Photograph will foll ow under a separate cover Cellular material measuremen t in stone by estimated (mass/mass)on 01-25-2024 Cellular material Est (Stone) [Mass/Mass] TNP . [facility] Cholesterol [Mass/volume] in Serum or Plasmaon 01-25-2024 Cholesterol [Mass/Vol] TNP . [facility] Composition of stoneon 01-24 Composition Nom (Stone) Comment . [facility] Comment on above: Percentage (Represen ts the % composition) Cystine measurementon 2023 Cystine (Unsp spec) [Moles/Vol] TNP . [facility] Determination of color of ca lculuson 01-25-2024 Color (Stone) Brown . [facility] Eosinophils/100 WBC Auto (Bl d)on 01-25-2024 Eosinophils/100 WBC (Bld) 1.5 % 0.9-7.0 [facility] Erythrocyte distribution wid th Auto (RBC) [Ratio]on 01-25-2024 Erythrocyte distribution width (RBC) [Ratio] 12.5 % 11.0-15.0 [facility] Estimated glomerular filtrat ion rate (GFR) non- Americanon 01-25-2024 GFR/1.73 sq M.predicted among non-blacks MDRD (S/P/Bld) [Vol rate/Area] 57 mL/min/{1.73_m2} Low >=60 [facility] Globulin Calc (S) [Mass/Vol] on 01-25-2024 Globulin (S) [Mass/Vol] 3.5 g/dL [facility] Hematocrit Auto (Bld) [Volum e fraction]on 01-25-2024 Hematocrit (Bld) [Volume fraction] 39.7 % 36.0-48.0 [facility] Hemoglobin [Mass/volume] in Bloodon 01-25-2024 Hemoglobin (Bld) [Mass/Vol] 13.6 g/dL 12.0-16.0 [facility] Laboratory - Chemistry and C hemistry - challengeon 01-25-2024 Albumin [Mass/Vol] 4.2 g/dL 3.4-5.0 [facility] ALP [Catalytic activity/Vol] 87 U/L 46-116 [facility] ALT [Catalytic activity/Vol] 42 U/L 14-59 [facility] AST [Catalytic activity/Vol] 27 U/L 15-37 [facility] Bilirubin [Mass/Vol] 0.4 mg/dL 0.2-1.0 [facility] Calcium [Mass/Vol] 9.4 mg/dL 8.5-10.1 [facility] Chloride [Moles/Vol] 105 mmol/L 98-107 [facility] CO2 [Moles/Vol] 28.5 mmol/L 21.0-32.0 [facility] Creatinine [Mass/Vol] 1.00 mg/dL 0.55-1.02 [facility] GFR/1.73 sq M.predicted MDRD (S/P/Bld) [Vol rate/Area] mL/min/{1.73_m2} >=60 [facility] Glucose [Mass/Vol] 141 mg/dL High 74-106 [facility] Potassium [Moles/Vol] 3.9 mmol/L 3.5-5.1 [facility] Protein [Mass/Vol] 7.7 g/dL 6.4-8.2 [facility] Sodium [Moles/Vol] 140 mmol/L 136-145 [facility] Urea nitrogen [Mass/Vol] 19.0 mg/dL High 7.0-18.0 [facility] Urea nitrogen/Creatinine [Mass ratio] 19.0 mg/mg [facility] Bilirubin Ql (U) Negative NEGATIVE [facility] Glucose (U) [Mass/Vol] Negative NEGATIVE [facility] Ketones Ql (U) Negative NEGATIVE [facility] pH (U) 6.0 [pH] 5.0-9.0 [facility] Specific gravity (U) [Rel density] >=1.030 Abnormal 1.005-1.025 [facility] Urobilinogen Qn (U) 0.2 {Erum'U}/dL 0.2-1.0 [facility] Laboratory - Hematology and Cell countson 01-25-2024 Immature granulocytes/100 WBC (Bld) 0.4 % 0.0-0.5 [facility] Laboratory - Specimen inform ationon 01-25-2024 Appearance (U) CLEAR CLEAR [facility] Color (U) YELLOW YELLOW [facility] Laboratory - Urinalysison Leukocyte esterase Test strip Ql (U) TRACE Abnormal NEGATIVE [facility] Mucus Ql (Urine sed) NONE SEEN NONE SEEN [facility] Nitrite Ql (U) Negative NEGATIVE [facility] Protein Ql (U) 30 mg/dL Abnormal NEG/TRACE [facility] Leukocytes [#/volume] correc aubrey for nucleated erythrocytes in Blood by Automated counon 01-25-2024 WBC corrected for nucl RBC Auto (Bld) [#/Vol] 7.5 10 3/uL 4.0-11.0 [facility] Lymphocytes Auto (Bld) [#/Vo l]on 01-25-2024 Lymphocytes (Bld) [#/Vol] 1.1 10 3/uL Low 1.2-3.8 [facility] Lymphocytes/100 WBC Auto (Bl d)on 01-25-2024 Lymphocytes/100 WBC (Bld) 14.5 % Low 20.5-60.0 [facility] MCH Auto (RBC) [Entitic mass ]on 01-25-2024 MCH (RBC) [Entitic mass] 28.8 pg 26.7-34.0 [facility] MCHC Auto (RBC) [Mass/Vol]on 01-25-2024 MCHC (RBC) [Mass/Vol] 34.3 g/dL 29.9-35.2 [facility] MCV Auto (RBC) [Entitic vol] on 01-25-2024 MCV (RBC) [Entitic vol] 83.9 fL 81.0-99.0 [facility] Measurement of proportion of calculus composed of dried blood (mass/mass)on 01-25-2024 Blood.dried (Stone) [Mass fraction] TNP . [facility] Monocytes Auto (Bld) [#/Vol] on 01-25-2024 Monocytes (Bld) [#/Vol] 0.4 10 3/uL 0.3-0.8 [facility] Monocytes/100 WBC Auto (Bld) on 01-25-2024 Monocytes/100 WBC (Bld) 5.6 % 1.7-12.0 [facility] Neutrophils Auto (Bld) [#/Vo l]on 01-25-2024 Neutrophils (Bld) [#/Vol] 5.9 10 3/uL 1.4-6.5 [facility] Neutrophils/100 WBC Auto (Bl d)on 01-25-2024 Neutrophils/100 WBC (Bld) 77.6 % High 43.0-75.0 [facility] Newberyite crystals detectio n in stone by infrared spectroscopyon 01-25-2024 Newberyite crystals Infrared spectroscopy Ql (Stone) TNP . [facility] No Panel Informationon 01-24 Stone 2,8 Dihydroxyadenine TNP . [facility] Stone Analysis Disclaimer Comment . [facility] Comment on above: Calculi report will follow via computer, mail or courierdelivery. This test was devdandy nguyen and its performance characteristicsdetermined by [employer]. It has not been cleared or approvedby the Food and Drug Administration.Performed at: [address] [id number] Director: Jessica Morales PhD, Phone: [phone] Stone Bilirubinate TNP . [facility] Stone Calcium Palmitate TNP . [facility] Stone Calcium Stearate TNP . [facility] Stone Drug or Metabolite TNP . [facility] Stone Other Constituent TNP . [facility] Stone Xanthine TNP . [facility] Eosinophils # (Auto) 0.1 10 3/uL 0.0-0.7 [facility] Immature Granulocyte # (Auto) 0.03 10 3/uL 0.00-0.03 [facility] Urine Bacteria LARGE #/HPF Abnormal NONE SEEN [facility] Urine Calcium Oxalate Crystals RARE [facility] Urine Culture Reflexed YES [facility] Urine Occult Blood LARGE Abnormal NEGATIVE [facility] Urine Other Casts NONE SEEN #/LPF NONE SEEN [facility] Urine Other Crystals Seen #/HPF Abnormal None Seen [facility] Urine RBC 20-50 #/HPF Abnormal 0-2 [facility] Urine Squamous Epithelial Cells FEW #/LPF Abnormal NONE/RARE [facility] Urine WBC 0-2 #/HPF Abnormal NONE SEEN [facility] Platelet mean volume Auto (B ld) [Entitic vol]on 01-25-2024 Platelet mean volume (Bld) [Entitic vol] 10.2 fL 9.5-13.5 [facility] Platelets Auto (Bld) [#/Vol] on 01-25-2024 Platelets (Bld) [#/Vol] 249 10 3/uL 150-450 [facility] RBC Auto (Bld) [#/Vol]on RBC (Bld) [#/Vol] 4.73 10 6/uL 4.20-5.40 [facility] Serum or plasma albumin/glob ulin mass ratioon 01-25-2024 Albumin/Globulin [Mass ratio] 1.2 {ratio} [facility] Serum or plasma anion gap de terminationon 01-25-2024 Anion gap [Moles/Vol] 10.4 mmol/L [facility] Size [Entitic volume] of Sto neon 01-25-2024 Size (Stone) [Entitic vol] 7x2 mm . [facility] Comment on above: Multiple pieces rece ived. Dimensions of the largest piecereported. Sodium urate crystals detect ion in stone by infrared spectroscopyon 01-25-2024 Sodium urate crystals Infrared spectroscopy Ql (Stone) [place] . [facility] Specimen source subject [Typ e]on 01-25-2024 Specimen source subject Nom Comment . [facility] Comment on above: Left Ureter Triamterene measurement in c alculuson 01-25-2024 Triamterene (Stone) [Mass fraction] TN . [facility] Triple phosphate/Total in St oneon 01-25-2024 Triple phosphate (Stone) [Mass fraction] TNP . [facility] Uric acid dihydrate crystals detection in stone by infrared spectroscopyon 01-25-2024 Urate dihydrate crystals Infrared spectroscopy Ql (Stone) [place] . [facility] Estimated glomerular filtrat ion rate (GFR) non- Americanon 10-23-2023 GFR/1.73 sq M.predicted among non-blacks MDRD (S/P/Bld) [Vol rate/Area] mL/min/{1.73_m2} >=60 [facility] Laboratory - Chemistry and C hemistry - challengeon 10-23-2023 Calcium [Mass/Vol] 9.4 mg/dL 8.5-10.1 [facility] Chloride [Moles/Vol] 106 mmol/L 98-107 [facility] CO2 [Moles/Vol] 29.6 mmol/L 21.0-32.0 [facility] Creatinine [Mass/Vol] 0.80 mg/dL 0.55-1.02 [facility] GFR/1.73 sq M.predicted MDRD (S/P/Bld) [Vol rate/Area] mL/min/{1.73_m2} >=60 [facility] Glucose [Mass/Vol] 81 mg/dL 74-106 [facility] Potassium [Moles/Vol] 3.8 mmol/L 3.5-5.1 [facility] Sodium [Moles/Vol] 142 mmol/L 136-145 [facility] Urea nitrogen [Mass/Vol] 17.0 mg/dL 7.0-18.0 [facility] Urea nitrogen/Creatinine [Mass ratio] 21.2 mg/mg [facility] No Panel Informationon 10-22 Troponin I High Sensitivity <4.0 pg/mL 4.0-51.3 [facility] Comment on above: CUT-OFF POINTS HAVE BEEN [...] terminationon 10-23-2023 Anion gap [Moles/Vol] 10.2 mmol/L [facility] MG MAMM SCREEN 3D ANNA CADon 05-31-2022 MG MAMM SCREEN 3D ANNA CAD Patient: LIZ KING Exam Date: 05/31/2022 : 1965 Gender:F Ordering : DR MIRYAM GUTHRIE D.O. Admission #: [id number] Family : Order #: [id number] CLICK HERE TO VIEW EXAM RADIOLOGY REPORT [...] leukemia cancer at age 80. LOCATION: [facility] BREAST COMPOSITION: Heterogeneously dense,which may obscure small [...] M.D. on 05/31/2022 at 16:00 Normal [facility] VC INJ SCL ROBERT MACHINE DYER VEINSon 1 VC INJ SCL ROBERT MACHINE DYER VEINS Patient: LIZ KING Exam Date: 05/23/2022 : 1965 Gender:F Ordering : DR ANAHI MCNULTY M.D. Admission #: [id number] Family : Order #: [id number] CLICK HERE TO VIEW EXAM RADIOLOGY REPORT PROCEDURE: VEIN CENTER INJECTION SCLEROSING SOLUTION MULTIPLE VEINS SAME COMPARISON: VC INJ SCL ROBERT MACHINE DYER VEINS, 05/18/2022. INDICATIONS: Pain co-occurrent and due [...] Anahi Mcnulty MD on 05/23/2022 at 13:35 [facility] VC INJ SCL ROBERT MACHINE DYER VEINSon 1 VC INJ SCL ROBERT MACHINE DYER VEINS Patient: LIZ KING. Exam Date: 05/18/2022 : 1965 Gender:F Ordering : DR ANAHI MCNULTY M.D. Admission #: [id number] Family : Order #: [id number] CLICK HERE TO VIEW EXAM RADIOLOGY REPORT [...] Mcnulty MD on 05/18/2022 at 13:11 Normal [facility] VC CONSULT FOLLOWUPon 2021 VC CONSULT FOLLOWUP Patient: MARGARET KINGY MELISSA Gallegos. Exam Date: 05/13/2022 : 1965 Gender:F Ordering : DR ANAHI MCNULTY M.D. Admission #: [id number] Family : Order #: [id number] CLICK HERE TO VIEW EXAM RADIOLOGY REPORT [...] Mcnulty MD on 05/13/2022 at 12:57 Normal [facility] VC EXT VENOUS RT LIMITEDon 0 05-13-2022 VC EXT VENOUS RT LIMITED Patient: LIZ KING Exam Date: 05/13/2022 : 1965 Gender:F Ordering : DR ANAHI MCNULTY M.D. Admission #: [id number] Family : Order #: [id number] CLICK HERE TO VIEW EXAM RADIOLOGY REPORT [...] Anahi Mcnulty MD on 05/13/2022 at 12:55 [facility] VC INJ FOAM SCLERO W US MLTI on 05-09-2022 VC INJ FOAM SCLERO W US MLTI Patient: LIZ KING Exam Date: 05/09/2022 : 1965 Gender:F Ordering : DR ANAHI MCNULTY M.D. Admission #: [id number] Family : Order #: [id number] CLICK HERE TO VIEW EXAM RADIOLOGY REPORT [...] needed and (more content not included)... Normal [facility] VC CONSULT FOLLOWUPon 2021 VC CONSULT FOLLOWUP Patient: SPENCER KING Exam Date: 05/02/2022 : 1965 Gender:F Ordering : DR ANAHI MCNULTY M.D. Admission #: [id number] Family : Order #: [id number] CLICK HERE TO VIEW EXAM RADIOLOGY REPORT [...] Bell M.D. on 05/02/2022 at 13:15 Normal [facility] VC EXT VENOUS LT LIMITEDon 0 05-02-2022 VC EXT VENOUS LT LIMITED Patient: LIZ KING. Exam Date: 05/02/2022 : 1965 Gender:F Ordering : DR ANAHI MCNULTY M.D. Admission #: [id number] Family : Order #: [id number] CLICK HERE TO VIEW EXAM RADIOLOGY REPORT [...] Bell M.D. on 05/02/2022 at 13:07 Normal [facility] VC INJ FOAM SCLERO W US MLTI on 04-26-2022 VC INJ FOAM SCLERO W US MLTI Patient: LIZ KING Exam Date: 04/26/2022 : 1965 Gender:F Ordering : DR ANAHI MCNULTY M.D. Admission #: [id number] Family : Order #: [id number] CLICK HERE TO VIEW EXAM RADIOLOGY REPORT [...] GSV, (more content not included)... Normal [facility] VC CONSULT FOLLOWUPon 2021 VC CONSULT FOLLOWUP Patient: SPENCER KING Exam Date: 04/19/2022 : 1965 Gender:F Ordering : DR ANAHI MCNULTY M.D. Admission #: [id number] Family : Order #: [id number] CLICK HERE TO VIEW EXAM RADIOLOGY REPORT [...] Mcnulty MD on 04/19/2022 at 13:56 Normal [facility] VC EXT VENOUS RT LIMITEDon 0 04-19-2022 VC EXT VENOUS RT LIMITED Patient: LIZ KING Exam Date: 04/19/2022 : 1965 Gender:F Ordering : DR ANAHI MCNULTY M.D. Admission #: [id number] Family : Order #: [id number] CLICK HERE TO VIEW EXAM RADIOLOGY REPORT [...] Mcnulty MD on 04/19/2022 at 13:24 Normal [facility] VC ENDOVENOUS ABL 1ST V RTon 08-30-2022 VC ENDOVENOUS ABL 1ST V RT Patient: LIZ KING Exam Date: 04/12/2022 : 1965 Gender:F Ordering : DR ANAHI MCNULTY M.D. Admission #: [id number] Family : Order #: [id number] CLICK HERE TO VIEW EXAM RADIOLOGY REPORT [...] The total number of Joules delivered was 16822. The laser was active for 146 seconds [...] Mcnulty MD on 04/12/2022 at 13:30 Normal [facility] VC CONSULT FOLLOWUPon 2021 VC CONSULT FOLLOWUP Patient: SPENCER KING Exam Date: 03/29/2022 : 1965 Gender:F Ordering : DR ANAHI MCNULTY M.D. Admission #: [id number] Family : Order #: [id number] CLICK HERE TO VIEW EXAM RADIOLOGY REPORT [...] Bell M.D. on 03/29/2022 at 14:07 Normal [facility] VC EXT VENOUS LT LIMITEDon 0 03-29-2022 VC EXT VENOUS LT LIMITED Patient: LIZ KING ElShea Exam Date: 03/29/2022 : 1965 Gender:F Ordering : DR ANAHI MCNULTY M.D. Admission #: [id number] Family : Order #: [id number] CLICK HERE TO VIEW EXAM RADIOLOGY REPORT [...] Bell M.D. on 03/29/2022 at 14:02 Normal [facility] VC ENDOVENOUS ABL 1ST V LTon 03-22-2022 VC ENDOVENOUS ABL 1ST V LT Patient: LIZ KING Exam Date: 03/22/2022 : 1965 Gender:F Ordering : DR ANAHI MCNULTY M.D. Admission #: [id number] Family : Order #: [id number] CLICK HERE TO VIEW EXAM RADIOLOGY REPORT [...] Mcnulty MD on 03/22/2022 at 14:03 Normal [facility] VC CONSULT FOLLOWUPon 2021 VC CONSULT FOLLOWUP Patient: SPENCER KING. Exam Date: 02/25/2022 : 1965 Gender:F Ordering : DR ANAHI MCNULTY M.D. Admission #: [id number] Family : Order #: [id number] CLICK HERE TO VIEW EXAM RADIOLOGY REPORT [...] MD on 02/25/2022 at 14:12 Normal [facility] VC EXT VENOUS RT LIMITEDon 0 02-25-2022 VC EXT VENOUS RT LIMITED Patient: LIZ KING Exam Date: 02/25/2022 : 1965 Gender:F Ordering : DR ANAHI MCNULTY M.D. Admission #: [id number] Family : Order #: [id number] CLICK HERE TO VIEW EXAM RADIOLOGY REPORT [...] Mcnulty MD on 02/25/2022 at 14:03 Normal [facility] VC CONSULT FOLLOWUPon 2021 VC CONSULT FOLLOWUP Patient: SPENCER KING. Exam Date: 02/07/2022 : 1965 Gender:F Ordering : DR ANAHI MCNULTY M.D. Admission #: [id number] Family : Order #: [id number] CLICK HERE TO VIEW EXAM RADIOLOGY REPORT [...] Anahi Mcnulty MD on 02/07/2022 at 12:26 [facility] VC EXT VENOUS RT LIMITEDon 0 02-07-2022 VC EXT VENOUS RT LIMITED Patient: LIZ KING Exam Date: 02/07/2022 : 1965 Gender:F Ordering : DR ANAHI MCNULTY M.D. Admission #: [id number] Family : Order #: [id number] CLICK HERE TO VIEW EXAM RADIOLOGY REPORT [...] MD on 02/07/2022 at 12:06 Normal [facility] VC CONSULT FOLLOWUPon 2021 VC CONSULT FOLLOWUP Patient: SPENCER KING. Exam Date: 01/31/2022 : 1965 Gender:F Ordering : DR ANAHI MCNULTY M.D. Admission #: [id number] Family : Order #: [id number] CLICK HERE TO VIEW EXAM RADIOLOGY REPORT [...] Bell M.D. on 01/31/2022 at 15:59 Normal [facility] VC EXT VENOUS RT LIMITEDon 0 01-31-2022 VC EXT VENOUS RT LIMITED Patient: LIZ KING Exam Date: 01/31/2022 : 1965 Gender:F Ordering : DR ANAHI MCNULTY M.D. Admission #: [id number] Family : Order #: [id number] CLICK HERE TO VIEW EXAM RADIOLOGY REPORT [...] Bell M.D. on 01/31/2022 at 15:40 Normal [facility] VC ENDOVENOUS ABL 1ST V RTon 01-25-2022 VC ENDOVENOUS ABL 1ST V RT Patient: LIZ KING Exam Date: 01/25/2022 : 1965 Gender:F Ordering : DR ANAHI MCNULTY M.D. Admission #: [id number] Family : Order #: [id number] CLICK HERE TO VIEW EXAM RADIOLOGY REPORT [...] 36 cm from the entry 10 cm ymeqc-nag-zput to 3 cm below the saphenofemoral junction. [...] Bell M.D. on 01/25/2022 at 14:30 Normal [facility] VC COMP CONSULTATIONon 12-23 VC COMP CONSULTATION Patient: LIZ KING Exam Date: 12/23/2021 : 1965 Gender:F Ordering : DR AYSE PRECIADO M.D. 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 The patient's symptoms are relieved by rest, [...] Mcnulty MD on 12/23/2021 at 13:56 Normal [facility] VC VENOUS REFLUX ANNA LMTon 0 12-23-2021 VC VENOUS REFLUX ANNA LMT Patient: LIZ KING Exam Date: 12/23/2021 : 1965 Gender:F Ordering : DR AYSE PRECIADO M.D. Admission #: [id number] Family : Order #: [id number] CLICK HERE TO VIEW EXAM RADIOLOGY REPORT [...] area of thrombus. Deep venous reflux visualized. Secondary Connector Armature: Dist/med calf 4.2 mm, 3.8s. Dist calf [...] MD on 12/23/2021 at 12:48 Normal [facility] SHANIA DOP LEG LTon 05-02-20 22 US SHANIA DOP LEG LT EXAMINATION: [...] by: JAYY BELL Date: 2021-12-13 12:41 Normal [facility] Vital Signs Date Time Vital Sign Value Performing Clinician Giana leal 06-25-2024 13:36-0500 Body height 165.1 cm [employer] Work Phone: [facility] 06-25-2024 13:36-0500 Body mass index (BMI) [Ratio] 36.11 kg/m2 [employer] Work Phone: [facility] 06-25-2024 13:36-0500 Body weight 98.43 kg [employer] Work Phone: [facility] 06-25-2024 13:36-0500 Diastolic blood pressure 70 mm[Hg] [employer] Work Phone: [facility] 06-25-2024 13:36-0500 Systolic blood pressure 122 mm[Hg] [employer] Work Phone: [facility] 02-01-2024 14:32-0400 Body height 165.1 cm [facility] 02-01-2024 14:32-0400 Body mass index (BMI) [Ratio] 34.6 kg/m2 [facility] 02-01-2024 14:32-0400 Body weight 94.34 kg [facility] 02-01-2024 14:32-0400 Diastolic blood pressure 75 mm[Hg] [facility] 02-01-2024 14:32-0400 Heart rate 63 /min [facility] 02-01-2024 14:32-0400 Systolic blood pressure 121 mm[Hg] [facility] 01-25-2024 16:12-0400 Body weight 57 mg MD Ayse Preciado Work Phone: [facility] 11-16-2023 14:56-0400 Body height 165.1 cm MD Ayse Preciado Work Phone: [facility] 11-16-2023 14:56-0400 Body mass index (BMI) [Ratio] 34.7 kg/m2 MD Ayse Preciado Work Phone: [facility] 11-16-2023 14:56-0400 Body weight 94.51 kg MD Ayse Preciado Work Phone: [facility] 11-16-2023 14:56-0400 Diastolic blood pressure 81 mm[Hg] MD Ayse Preciado Work Phone: [facility] 11-16-2023 14:56-0400 Heart rate 70 /min MD Ayse Preciado Work Phone: [facility] 11-16-2023 14:56-0400 Systolic blood pressure 131 mm[Hg] MD Ayse Preciado Work Phone: [facility] 10-23-2023 14:13-0400 Body height 165.1 cm MD Ayse Preciado Work Phone: [facility] 10-23-2023 14:13-0400 Body mass index (BMI) [Ratio] 34.4 kg/m2 MD Ayse Preciado Work Phone: [facility] 10-23-2023 14:13-0400 Body weight 94 kg MD Ayse Preciado Work Phone: [facility] 10-23-2023 14:13-0400 Diastolic blood pressure 90 mm[Hg] MD Ayse Preciado Work Phone: [facility] 10-23-2023 14:13-0400 Heart rate 62 /min MD Ayse Preciado Work Phone: [facility] 10-23-2023 14:13-0400 Systolic blood pressure 134 mm[Hg] MD Ayse Preciado Work Phone: [facility] Encounters Encounter Date Encounter Type Care Provider Facility Start: 09-03-2024 ambulatory Gurdeep SWEENEY Facility :[facility] Start: 07-22-2024 End: 07-23-2024 Clinisync Result Encounter Juan Antonio Rina DO Work Phone: [facility] Unsolicited Start: 07-22-2024 End: 07-23-2024 Clinisync Result Encounter Juan Antonio Rina DO [...] 04-11-2024 ambulatory MD Ayse Preciado Work Phone: [facility] Work Phone: Start: 04-11-2024 End: 04-11-2024 Departed Referred MD Ayse Preciado Work Phone: [facility] Start: 04-11-2024 Non-patient / Non-visit MD Zoey Preciado Work Phone: [facility] Work Phone: Start: 02-19-2024 End: 02-19-2024 ambulatory Gurdeep SWEENEY Facility[facility] Start: 02-19-2024 End: 02-19-2024 Patient encounter procedure Gurdeep SWEENEY [facility] Start: 02-07-2024 End: 02-07-2024 ambulatory Gurdeepsarah SWEENEY Facility:[facility] Start: 02-07-2024 End: 02-07-2024 Patient encounter procedure Gurdeep SWEENEY [facility] Start: 02-01-2024 End: 02-01-2024 ambulatory [facility] Work Phone: Start: 02-01-2024 End: 02-01-2024 Patient encounter procedure [facility] Work Phone: Start: 01-26-2024 ambulatory Gurdeep SWEENEY Facility:[facility] Start: 01-25-2024 Non-patient / Non-visit [facility] Work Phone: Start: 01-25-2024 End: 01-25-2024 ambulatory Gurdeep SWEENEY Facility:CD:[id number] Start: 11-16-2023 End: 11-16-2023 ambulatory MD Ayse Preciado Work Phone: [facility] Work Phone: Start: 11-16-2023 End: 11-16-2023 Patient encounter procedure MD Ayse Preciado Work Phone: [facility] Work Phone: Start: 10-23-2023 End: 10-23-2023 ambulatory Ayse Preciado Facility:[facility] Start: 10-23-2023 End: 10-23-2023 Patient encounter procedure MD Ayse Preciado Work Phone: [facility] Work Phone: Start: 05-31-2022 End: 06-01-2022 ambulatory [...] Date Procedure Procedure Detail Performing Clinician Start: 07-22-2024 Antibody screen Juan Antonio F azio DO Work Phone: Start: 07-22-2024 ALL TYPE AND SCREEN Cor ey Rina DO Work Phone: Start: 07-08-2024 ALL CBC WITH AUTO DIFF Juan Antonio Rina DO Work Phone: Start: 06-04-2024 Mammography Juan Antonio Fazi o DO Work Phone: Bilateral tubal ligation Tyshawn SWEENEY section Gurdeep Spaulding Excision of thyroglo ssal duct cyst Gurdeep SWEENEY Lithotripsy Gurdeep SWEENEY Plan of Treatment Date Care Activity Detail Author Start: 06-04-2025 Screening for malign ant neoplasm of breast Mammogram [facility] Start: 08-01-2024 End: 08-01-2024 Patient encounter procedure 08/01/2024 10:50 AM EST Office Visit [facility] [address] [place] [address] Juan Antonio Flynn, DO [address] [place] [address] [facility] Start: 04-14-2024 Influenza vaccination Influenza Vacc ine (#1) [facility] Start: 02-01-2024 Patient referral [facility] Work Phone: Start: 10-23-2023 EKG 12 channel panel [facility] Start: 1995 Screening for malign ant neoplasm of cervix [facility] Start: 1986 Screening for malign ant neoplasm of cervix Pap Smear [facility] Start: 1965 Screening for malign ant neoplasm of colon [facility] Patient referral [facility] Work Phone: [facility] Payers Date Payer Category Payer Self-pay 2023 Unknown [id number] 2023 Private Health Insurance [employer] [id number] 1965 Unknown [id number] 2.0.1.723450.3.579.2. 1965 Unknown [id number] 2.840.1.993408.3.579.2. 1965 Unknown [id number] 2.840.1.374248.3.579.2. 59 1965 Unknown [id number] 2.840.1.647421.3.579.2. 59 1965 Unknown [id number] 2.840.1.087153.3.579.2. 59 1965 Unknown [id number] 2.840.1.662421.3.579.2. 59 1965 Unknown [id number] 2.840.1.428139.3.579.2. 59 1965 Unknown [id number] 2.16.840.1.076780.3.579.2. 593 1965 Unknown [id number] 2.16.840.1.846425.3.579.2. 593 1965 Unknown [id number] 2.16.840.1.314862.3.579.2. 593 1965 Unknown [id number] 2.16.840.1.342123.3.579.2. 593 1965 Unknown [id number] 2.16.840.1.517960.3.579.2. 593 1965 Unknown [id number] 2.16.840.1.016147.3.579.2. 593 1965 Unknown [id number] 2.16.840.1.752475.3.579.2. 593 1965 Unknown [id number] 2.16.840.1.690605.3.579.2. 593 1965 Unknown [id number] 2.16.840.1.561810.3.579.2. 593 1965 Unknown [id number] 2.16.840.1.528121.3.579.2. 593 1965 Unknown [id number] 2.16.840.1.187773.3.579.2. 593 1965 Unknown [id number] 2.16.840.1.313502.3.579.2. 593 1965 Unknown [id number] 2.16.840.1.153725.3.579.2. 593 1965 Unknown [id number] 2.16.840.1.928864.3.579.2. 593 1965 Unknown [id number] 2.16.840.1.317372.3.579.2. 727 1965 Unknown [id number] 2.16.840.1.596881.3.579.2. 727 1965 Unknown [id number] 2.16.840.1.944634.3.579.2. 727 1965 Unknown [id number] 2.16.840.1.929779.3.579.2. 727 1959 Unknown [id number] Unknown [id number] 2.16.840.1.829646.3.579.2. 531 Unknown [id number] 2.16.840.1.714090.3.579.2. 531 Social History Date Type Detail Facility Start: 12-16-2020 End: 10-23-2023 Tobacco smoking status NDIS Never smoked tobacco (finding) [facility] Start: 1965 Sex Assigned At Female [facility] Sex Assigned At Female [facility] Tobacco smoking status [facility] Tobacco smoking consumption unknown [facility] Start: 04-18-2024 Gender identity Identifies as female gender (finding) [facility] Clinical Notes 02-01-2024 to 06-25-2024 Patricia Cervantes [...] on 07/24/[address] Flynn at [facility]. MEDICATIONS Current Outpatient Medications Medication Instructions amLODIPine [...] nursing note reviewed. 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 Vitals: Estimated body mass index is [...] reviewed, and patient is to proceed to [facility] OR. Follow Up: Patient is to follow up at 1 & 6 weeks post operative to assess proper healing and recovery from procedure. Documented by Janina Garcia LPN on behalf of: Juan Antonio Flynn DO documented in this encounter [facility] 02-19-2024 Hospital Discharg e instructions Patient Education [...] Care 01/29/2024 11:42:41 With:Gurdeep SWEENEY Address: [address] Business (1) When: Unknown Comments:The stent has [...] decision at any time.Have a great day. [facility] 02-19-2024 Note Patient Education Cystoscopy with [...] you have a fever over 100 degrees. [facility] 02-01-2024 Hospital Discharg e instructions Ambulatory OrdersReferral to [facility] Time Frame: 02/01/24, Location: [facility] Work Phone: Evaluation + Plan note Future Appointments Appointment Date:02/12/2024 08:00:00 AM Scheduled Provider: Location:[facility] Appointment Type:Urology CALL PAT FT Appointment Date:02/19/2024 03:15:00 PM Scheduled Provider: Location:[facility] Appointment Type:Urology FT [facility] Evaluation + Plan note Future Appointments Appointment Date:09/03/2024 02:30:00 PM Scheduled Provider:Gurdeep SWEENEY MD Location:[facility] Appointment Type:URO Office Visit [facility] Evaluation note Diagnosis Onset Date Epigastric abdominal pain ac brock HTN (hypertension) [facility] Work Phone: Evaluation note* Diagnosis Onset Date Resolution Status HTN (hypertension) acute Uterine mass [facility] Work Phone: Evaluation note* Diagnosis Onset Date Resolution Status HTN (hypertension) acute Nephrolithiasis acute Uterine mass [facility] Work Phone: Evaluation note* Diagnosis Pre-op examination Enlarged uterus Hypertrophy of uterus Pelvic pain in female Unspecified symptom associated with female genital organs documented in this encounter [facility] Narrative No data available for this section [facility] Hospital Discharge instructions No data available for this section [facility] progress note No data available for this section [facility] Summary Purpose Family History Relationship Condition [...] and content) DATE CREATED AUTHOR 06/07/2022 [facility] DATE CREATED AUTHOR AUTHOR'S ORGANIZ ATION 02/27/2024 [facility] DATE CREATED AUTHOR AUTHOR'S ORGANIZ ATION 04/21/2024 [facility] Care Teams (unrecognized sec tion [...] November 16, 2023 End: November 16, 2023 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 [facility] [employer] [facility]. provides no warranty or guarantee of the accuracy or completeness of information in this document.
--- OUTSIDE RECORDS SUMMARY | 2024-07-26 11:49 | XMS_ITS | CCD ---
Author Organization [facility] Care Team Providers Care Dobie Worker Name Role Phone HAMLET, DR ANAHI Reich [...] Unavailable Gurdeep SWEENEY Admitting Unavailable ZAHRA, Gurdeep Hesnon Attending Unavailable ZAHRA, Gurdeep Henson Referring Unavailable Gurdeep SWEENEY Referring Unavailable Gurdeep SWEENEY Attending Unavailable MD Ayse Preciado Primary Care Provider [phone] DO Juan Antonio Flynn Attending Provider [phone] Juan Antonio Flynn Admitting Unavailable Juan Antonio Flynn Attending Unavailable Ayse Preciado Primary Care Unavailable Ayse Preciado Primary Care Unavailable Ayse Preciado Attending Unavailable Ayse Preciado Admmagali Unavailable Ayse Preciado MD Primary Care Provider Allergies Allergy Classification Reported Allergen(s) Allergy Type Date of Onset Reaction(s) Facility Sulfonamides (antibiotic) (1 source) Sulfonamides (Antibiotic); Translations: [sulfa drugs] Drug Allergy Eruption of skin (disorder) [facility] (2 sources) Sulfamethoxazole / Trimethoprim Drug Allergy [facility] (8 sources) Sulfamethoxazole; Translations: [sulfamethoxazole] Drug Allergy 11-16-19 [facility] (4 sources) Sulfonamides (Antibiotic); Translations: [Sulfa (Sulfonamide Antibiotics)] Allergy to substance 11-16-19 [facility] (8 sources) Trimethoprim; Translations: [trimethoprim] Drug Allergy 11-16-19 [facility] (2 sources) Sulfonamides (Antibiotic); Translations: [sulfa drugs] Drug allergy Eruption of skin (disorder) [facility] (4 sources) Sulfamethoxazole / Trimethoprim Drug Allergy 02-22-20 [facility] Work Phone: (4 sources) Sulfonamides (Antibiotic) [...] afterwards, # 2 tab(s), Refills(s) 0, Pharmacy: [facility]/pharmacy #[id number] Start Date: 01/29/24 Status: Ordered fluticasone furoate [...] Nom (Bld) Blood group A Rh(D) negative [facility] , [facility] ALL CBC WITH AUTO DIFFon BASOPHILS ABSOLUTE AUTO 0.1 [facility] Basophils/100 WBC (Bld) 0.8 % 0.2 - 2.0 % [facility] Eosinophils/100 WBC (Bld) 2.2 % 0.9 - 7.0 % [facility] Erythrocyte distribution width (RBC) [Ratio] 12.1 % 11.0 - 15.0 % [facility] Hematocrit (Bld) [Volume fraction] 37 % 36.0 - 48.0 % [facility] Hemoglobin (Bld) [Mass/Vol] 12.8 g/dL 12.0 - 16.0 g/dL [facility] IMMATURE GRANULOCYTES ABS AUTO 0.02 [facility] Immature granulocytes/100 WBC (Bld) 0.3 % 0.0 - 0.5 % [facility] LYMPHOCYTES ABSOLUTE AUTO 1.7 [facility] Lymphocytes/100 WBC (Bld) 29.1 % 20.5 - 60.0 % [facility] MCH (RBC) [Entitic mass] 29.3 pg 26.7 - 34.0 pg [facility] MCHC (RBC) [Mass/Vol] 34.6 g/dL 29.9 - 35.2 g/dL [facility] MCV (RBC) [Entitic vol] 84.7 fL 81.0 - 99.0 fL [facility] MONOCYTES ABSOLUTE AUTO 0.5 [facility] Monocytes/100 WBC (Bld) 8.2 % 1.7 - 12.0 % [facility] NEUTROPHILS ABSOLUTE AUTO 3.6 [facility] Neutrophils/100 WBC (Bld) 59.4 % 43.0 - 75.0 % [facility] Platelet mean volume (Bld) [Entitic vol] 10.2 fL 9.5 - 13.5 fL [facility] PLT 242 [facility] RBC 4.37 [facility] WBC 6 [facility] Basophils Auto (Bld) [#/Vol] on 04-11-2024 Basophils (Bld) [#/Vol] 0.0 10 3/uL 0.0-0.1 [facility] Basophils/100 WBC Auto (Bld) on 04-11-2024 Basophils/100 WBC (Bld) 0.8 % 0.2-2.0 [facility] Eosinophils/100 WBC Auto (Bl d)on 04-11-2024 Eosinophils/100 WBC (Bld) 3.3 % 0.9-7.0 [facility] Erythrocyte distribution wid th Auto (RBC) [Ratio]on 04-11-2024 Erythrocyte distribution width (RBC) [Ratio] 12.1 % 11.0-15.0 [facility] Hematocrit Auto (Bld) [Volum e fraction]on 04-11-2024 Hematocrit (Bld) [Volume fraction] 36.5 % 36.0-48.0 [facility] Hemoglobin [Mass/volume] in Bloodon 04-11-2024 Hemoglobin (Bld) [Mass/Vol] 13.1 g/dL 12.0-16.0 [facility] Braden 04-11-2024 L Specimen: [id number] R eceived: 04/11/24 Status: ERIC Aguirre Num: [id number] Spec Type: Surgical Subm Dr: Juan Antonio Flynn Tissues: A Cervical Polyp (CERV POLYP) B Endometrium - Curettings (ENDOM CUR) Procedures: HE/4, Gross/Micro L4/2 Age/ Patient Sex Location Account Attending Physician Liz King 59/F [facility] [id number] Juan Antonio Flynn SPEC NUM: [id number] RECD: 04/11/24 STATUS: ERIC AGUIRRE NUM: [id number] MAURY: 04/11/24- SUBM DR: Juan Antonio Flynn ENTERED: 04/11/[address] [facility] DR: Maciej,Lab SPEC TYPE: Surgical DEPT: NAVYA BENJAMIN ENTERED BY: [id number] RECV BY: [id number] ORDERED: HE/4, Gross/Micro L4/2 ORDERED: HE/4, Gross/Micro [...] x 1.0 x 0.4 cm -------- Specimen: [id number] Received: 04/11/24 Status: ERIC Timothy Num: [id number] Spec Type: Surgical Subm Dr: Juan Antonio Flynn Tissues: A Cervical Polyp (CERV POLYP) B Endometrium - Curettings (ENDOM CUR) Procedures: LU/Jan Tineo/Perez L4/2 -------- Patient: Liz King [id number] (Continued) -------- Specimen: [id number] Received: 04/11/24 (Continued) Gross Description (Continued) Signed (signature on file) Floyd Ochoa MD 04/19/24 0000 -------- Specimen: [id number] Received: 04/11/24 Status: ERIC Aguirre Num: [id number] Spec Type: Surgical Subm Dr: Juan Antonio Flynn Tissues: A Cervical Polyp (CERV POLYP) B Endometrium - Curettings (ENDOM CUR) Procedures: HE/Rivka, Gross/Micro L4/2 -------- Patient: Margaret Kingyccate Gallegos [id number] (Continued) -------- Specimen: [id number] Received: 04/11/24 (Continued) Gross Description (Continued) in aggregate. The specimen is entirely submitted in cassette B1. Microscopic Description Microscopic examinations are performed supporting the above interpretation CPT Codes 71284H7 -------- -------- Specimen: [id number] Received: 04/11/24 Status: ERIC Aguirre Num: [id number] Spec Type: Surgical Subm Dr: Juan Antonio Flynn Tissues: A Cervical Polyp (CERV POLYP) B Endometrium - Curettings (ENDOM CUR) Procedures: BARRON, Jan/Micro L4/2 -------- Patient: Liz King [id number] (Continued) -------- Signed (signature on file) Floyd Ochoa MD 04/19/24 1050 Normal [facility] Laboratory - Hematology and Cell countson 04-11-2024 Immature granulocytes/100 WBC (Bld) 0.2 % 0.0-0.5 [facility] Leukocytes [#/volume] correc aubrey for nucleated erythrocytes in Blood by Automated counon 04-11-2024 WBC corrected for nucl RBC Auto (Bld) [#/Vol] 5.2 10 3/uL 4.0-11.0 [facility] Lymphocytes Auto (Bld) [#/Vo l]on 04-11-2024 Lymphocytes (Bld) [#/Vol] 1.8 10 3/uL 1.2-3.8 [facility] Lymphocytes/100 WBC Auto (Bl d)on 04-11-2024 Lymphocytes/100 WBC (Bld) 33.8 % 20.5-60.0 [facility] MCH Auto (RBC) [Entitic mass ]on 04-11-2024 MCH (RBC) [Entitic mass] 29.8 pg 26.7-34.0 [facility] MCHC Auto (RBC) [Mass/Vol]on 04-11-2024 MCHC (RBC) [Mass/Vol] 35.9 g/dL High 29.9-35.2 [facility] MCV Auto (RBC) [Entitic vol] on 04-11-2024 MCV (RBC) [Entitic vol] 83.1 fL 81.0-99.0 [facility] Monocytes Auto (Bld) [#/Vol] on 04-11-2024 Monocytes (Bld) [#/Vol] 0.5 10 3/uL 0.3-0.8 [facility] Monocytes/100 WBC Auto (Bld) on 04-11-2024 Monocytes/100 WBC (Bld) 10.0 % 1.7-12.0 [facility] Neutrophils Auto (Bld) [#/Vo l]on 04-11-2024 Neutrophils (Bld) [#/Vol] 2.7 10 3/uL 1.4-6.5 [facility] Neutrophils/100 WBC Auto (Bl d)on 04-11-2024 Neutrophils/100 WBC (Bld) 51.9 % 43.0-75.0 [facility] No Panel Informationon 04-11 Eosinophils # (Auto) 0.2 10 3/uL 0.0-0.7 [facility] Immature Granulocyte # (Auto) 0.01 10 3/uL 0.00-0.03 [facility] Platelet mean volume Auto (B ld) [Entitic vol]on 04-11-2024 Platelet mean volume (Bld) [Entitic vol] 10.0 fL 9.5-13.5 [facility] Platelets Auto (Bld) [#/Vol] on 04-11-2024 Platelets (Bld) [#/Vol] 237 10 3/uL 150-450 [facility] RBC Auto (Bld) [#/Vol]on RBC (Bld) [#/Vol] 4.39 10 6/uL 4.20-5.40 [facility] Inpatient Patient Summaryon 02-19-2024 Inpatient Patient Summary Inpatient Patient Summary [address] [address] Clinical Summary Person Information Name: LIZ KING Age: 59 Years : 1965 Sex: Female PCP: AYSE PRECIADO MD Marital Status: Race: White Ethnicity: Non- or Language: Slovenian Visit Id: Visit Reason: KIDNEY STONE Speciality: Acuity: Enc Type: Outpatient Med Service: Surgery Arrival: 02/19/2024 14:32:49 Discharge: Dispo Type: Address: [address] [place] [phone] Provider Notes: Diagnosis: Problems Active Pilar cysts [...] Gurdeep SWEENEY [address], [address], [address] [address] Business (1) Comments: The stent [...] with Stent Removal Discharge Instructions (Custom) Normal [facility] Main OR Intraoperative Recor don 02-19-2024 Main OR Intraoperative Record Main OR Intraoperative Record IntraOp Document Type FTURO Summary Primary Physician: Gurdeep SWEENEY MD Finalized Date/Time: 02/19/24 15:19:48 Pt. Name: FERNANDOLIZ/Sex: 1965 Female Med Rec #: [id number] Physician: Gurdeep SWEENEY MD Financial #: [id number] Pt. 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 Name: FERNANDOLIZ./Sex: 1965 Female Med Rec #: [id number] Physician: Gurdeep SWEENEY MD Financial #: [id number] Pt. Type: O Room/Bed: / Admit/Disch: 02/19/24 [...] TORREY Castelan RN, Ruthann 02/19/24 14:49 Normal [facility] Operative Reporton Operative Report Operative Report [...] urine/metabolic workup prior to that visit.. Normal [facility] Comment on above: Result Comment: Elec tronically Signed By: Gurdeep SWEENEY MD\.br\Date and Time Signed: 02/19/24 15:22 EDT Outpatient Surgery Discharge Instructionon 02-19-2024 Outpatient Surgery Discharge Instruction Outpatient Surgery Discharge Instruction [address] [address] Patient Discharge Instructions PERSON INFORMATION [...] Follow up: With: Address: When: Gurdeep SWEENEY [address] [place] [address], [address], [address] [address] Business (1) Comments: The stent [...] serve you. Thank you for choosing [facility] Consultation Noteon 02-01-20 24 Consultation Note [id number]#1.00TIFF [facility] Insurance Correspondence Off iceon 01-30-2024 Insurance Correspondence Office [id number]#1.00TIFF [facility] Operative Reporton Operative Report [id number]#1.00TIFF [facility] Ammonium urate crystals dete ction in stone by infrared spectroscopyon 01-25-2024 Ammonium urate crystals Infrared spectroscopy Ql (Stone) TNP . [facility] Basophils Auto (Bld) [#/Vol] on 01-25-2024 Basophils (Bld) [#/Vol] 0.0 10 3/uL 0.0-0.1 [facility] Basophils/100 WBC Auto (Bld) on 01-25-2024 Basophils/100 WBC (Bld) 0.4 % 0.2-2.0 [facility] Calcium bilirubinate measure menton 01-25-2024 Calcium bilirubinate (Stone) [Mass fraction] TNP . [facility] Calcium carbonate (Stone) [M ass fraction]on 01-25-2024 Stone Calcium Carbonate TNP . [facility] Calcium hydrogen phosphate d ihydrate (Stone) [Mass fraction]on 01-25-2024 Stone Calcium Hydrogen Phosphate TNP . [facility] Calcium oxalate dihydrate cr ystals detection in stone by infrared spectroscopyon 01-25-2024 Calcium oxalate dihydrate crystals Infrared spectroscopy Ql (Stone) 40 % . [facility] Calcium oxalate monohydrate crystal detectionon 01-25-2024 Calcium oxalate monohydrate crystals Infrared spectroscopy Ql (Stone) 60 % . [facility] Calcium phosphate measuremen ton 01-25-2024 Calcium phosphate (Stone) [Mass fraction] TNP . [facility] Calculus analysis interpreta tion in stoneon 01-25-2024 Calculus analysis [Interp] TNP . [facility] Calculus analysis [Interp] Comment . [facility] Comment on above: Calculus received we t. Wet calculi must be dried beforeanalysis, which delays reporting of results. Leaving calculiwet (such as water, saline, blood, urine) may lead tochanges in composition. Physician questions regarding Calculi Analysis contact[employer] at: [phone]. Calculus analysis with calcu katarina photography interpretation in stoneon 01-25-2024 Calculus analysis with calculus photography [Interp] Comment . [facility] Comment on above: Photograph will foll ow under a separate cover Cellular material measuremen t in stone by estimated (mass/mass)on 01-25-2024 Cellular material Est (Stone) [Mass/Mass] TNP . [facility] Cholesterol [Mass/volume] in Serum or Plasmaon 01-25-2024 Cholesterol [Mass/Vol] TNP . [facility] Composition of stoneon 01-24 Composition Nom (Stone) Comment . [facility] Comment on above: Percentage (Represen ts the % composition) Cystine measurementon 2023 Cystine (Unsp spec) [Moles/Vol] TNP . [facility] Determination of color of ca lculuson 01-25-2024 Color (Stone) Brown . [facility] Eosinophils/100 WBC Auto (Bl d)on 01-25-2024 Eosinophils/100 WBC (Bld) 1.5 % 0.9-7.0 [facility] Erythrocyte distribution wid th Auto (RBC) [Ratio]on 01-25-2024 Erythrocyte distribution width (RBC) [Ratio] 12.5 % 11.0-15.0 [facility] Estimated glomerular filtrat ion rate (GFR) non- Americanon 01-25-2024 GFR/1.73 sq M.predicted among non-blacks MDRD (S/P/Bld) [Vol rate/Area] 57 mL/min/{1.73_m2} Low >=60 [facility] Globulin Calc (S) [Mass/Vol] on 01-25-2024 Globulin (S) [Mass/Vol] 3.5 g/dL [facility] Hematocrit Auto (Bld) [Volum e fraction]on 01-25-2024 Hematocrit (Bld) [Volume fraction] 39.7 % 36.0-48.0 [facility] Hemoglobin [Mass/volume] in Bloodon 01-25-2024 Hemoglobin (Bld) [Mass/Vol] 13.6 g/dL 12.0-16.0 [facility] Laboratory - Chemistry and C hemistry - challengeon 01-25-2024 Albumin [Mass/Vol] 4.2 g/dL 3.4-5.0 [facility] ALP [Catalytic activity/Vol] 87 U/L 46-116 [facility] ALT [Catalytic activity/Vol] 42 U/L 14-59 [facility] AST [Catalytic activity/Vol] 27 U/L 15-37 [facility] Bilirubin [Mass/Vol] 0.4 mg/dL 0.2-1.0 [facility] Calcium [Mass/Vol] 9.4 mg/dL 8.5-10.1 [facility] Chloride [Moles/Vol] 105 mmol/L 98-107 [facility] CO2 [Moles/Vol] 28.5 mmol/L 21.0-32.[address] [facility] Creatinine [Mass/Vol] 1.00 mg/dL 0.55-1.02 [facility] GFR/1.73 sq M.predicted MDRD (S/P/Bld) [Vol rate/Area] mL/min/{1.73_m2} >=60 [facility] Glucose [Mass/Vol] 141 mg/dL High 74-106 [facility] Potassium [Moles/Vol] 3.9 mmol/L 3.5-5.1 [facility] Protein [Mass/Vol] 7.7 g/dL 6.4-8.2 [facility] Sodium [Moles/Vol] 140 mmol/L 136-145 [facility] Urea nitrogen [Mass/Vol] 19.0 mg/dL High 7.0-18.0 [facility] Urea nitrogen/Creatinine [Mass ratio] 19.0 mg/mg [facility] Bilirubin Ql (U) Negative NEGATIVE [facility] Glucose (U) [Mass/Vol] Negative NEGATIVE [facility] Ketones Ql (U) Negative NEGATIVE [facility] pH (U) 6.0 [pH] 5.0-9.0 [facility] Specific gravity (U) [Rel density] >=1.030 Abnormal 1.005-1.025 [facility] Urobilinogen Qn (U) 0.2 {Erum'U}/dL 0.2-1.0 [facility] Laboratory - Hematology and Cell countson 01-25-2024 Immature granulocytes/100 WBC (Bld) 0.4 % 0.0-0.5 [facility] Laboratory - Specimen inform ationon 01-25-2024 Appearance (U) CLEAR CLEAR [facility] Color (U) YELLOW YELLOW [facility] Laboratory - Urinalysison Leukocyte esterase Test strip Ql (U) TRACE Abnormal NEGATIVE [facility] Mucus Ql (Urine sed) NONE SEEN NONE SEEN [facility] Nitrite Ql (U) Negative NEGATIVE [facility] Protein Ql (U) 30 mg/dL Abnormal NEG/TRACE [facility] Leukocytes [#/volume] correc aubrey for nucleated erythrocytes in Blood by Automated counon 01-25-2024 WBC corrected for nucl RBC Auto (Bld) [#/Vol] 7.5 10 3/uL 4.0-11.0 [facility] Lymphocytes Auto (Bld) [#/Vo l]on 01-25-2024 Lymphocytes (Bld) [#/Vol] 1.1 10 3/uL Low 1.2-3.8 [facility] Lymphocytes/100 WBC Auto (Bl d)on 01-25-2024 Lymphocytes/100 WBC (Bld) 14.5 % Low 20.5-60.0 [facility] MCH Auto (RBC) [Entitic mass ]on 01-25-2024 MCH (RBC) [Entitic mass] 28.8 pg 26.7-34.0 [facility] MCHC Auto (RBC) [Mass/Vol]on 01-25-2024 MCHC (RBC) [Mass/Vol] 34.3 g/dL 29.9-35.2 [facility] MCV Auto (RBC) [Entitic vol] on 01-25-2024 MCV (RBC) [Entitic vol] 83.9 fL 81.0-99.0 [facility] Measurement of proportion of calculus composed of dried blood (mass/mass)on 01-25-2024 Blood.dried (Stone) [Mass fraction] TNP . [facility] Monocytes Auto (Bld) [#/Vol] on 01-25-2024 Monocytes (Bld) [#/Vol] 0.4 10 3/uL 0.3-0.8 [facility] Monocytes/100 WBC Auto (Bld) on 01-25-2024 Monocytes/100 WBC (Bld) 5.6 % 1.7-12.0 [facility] Neutrophils Auto (Bld) [#/Vo l]on 01-25-2024 Neutrophils (Bld) [#/Vol] 5.9 10 3/uL 1.4-6.5 [facility] Neutrophils/100 WBC Auto (Bl d)on 01-25-2024 Neutrophils/100 WBC (Bld) 77.6 % High 43.0-75.0 [facility] Newberyite crystals detectio n in stone by infrared spectroscopyon 01-25-2024 Newberyite crystals Infrared spectroscopy Ql (Stone) TNP . [facility] No Panel Informationon 01-24 Stone 2,8 Dihydroxyadenine TNP . [facility] Stone Analysis Disclaimer Comment . [facility] Comment on above: Calculi report will follow via computer, mail or courierdelivery. This test was devdandy nguyen and its performance characteristicsdetermined by [employer]. It has not been cleared or approvedby the Food and Drug Administration.Performed at: [address] [id number] Director: Jessica Morales PhD, Phone: [phone] Stone Bilirubinate TNP . [facility] Stone Calcium Palmitate TNP . [facility] Stone Calcium Stearate TNP . [facility] Stone Drug or Metabolite TNP . [facility] Stone Other Constituent TNP . [facility] Stone Xanthine TNP . [facility] Eosinophils # (Auto) 0.1 10 3/uL 0.0-0.7 [facility] Immature Granulocyte # (Auto) 0.03 10 3/uL 0.00-0.03 [facility] Urine Bacteria LARGE #/HPF Abnormal NONE SEEN [facility] Urine Calcium Oxalate Crystals RARE [facility] Urine Culture Reflexed YES [facility] Urine Occult Blood LARGE Abnormal NEGATIVE [facility] Urine Other Casts NONE SEEN #/LPF NONE SEEN [facility] Urine Other Crystals Seen #/HPF Abnormal None Seen [facility] Urine RBC 20-50 #/HPF Abnormal 0-2 [facility] Urine Squamous Epithelial Cells FEW #/LPF Abnormal NONE/RARE [facility] Urine WBC 0-2 #/HPF Abnormal NONE SEEN [facility] Platelet mean volume Auto (B ld) [Entitic vol]on 01-25-2024 Platelet mean volume (Bld) [Entitic vol] 10.2 fL 9.5-13.5 [facility] Platelets Auto (Bld) [#/Vol] on 01-25-2024 Platelets (Bld) [#/Vol] 249 10 3/uL 150-450 [facility] RBC Auto (Bld) [#/Vol]on RBC (Bld) [#/Vol] 4.73 10 6/uL 4.20-5.40 [facility] Serum or plasma albumin/glob ulin mass ratioon 01-25-2024 Albumin/Globulin [Mass ratio] 1.2 {ratio} [facility] Serum or plasma anion gap de terminationon 01-25-2024 Anion gap [Moles/Vol] 10.4 mmol/L [facility] Size [Entitic volume] of Sto neon 01-25-2024 Size (Stone) [Entitic vol] 7x2 mm . [facility] Comment on above: Multiple pieces rece ived. Dimensions of the largest piecereported. Sodium urate crystals detect ion in stone by infrared spectroscopyon 01-25-2024 Sodium urate crystals Infrared spectroscopy Ql (Stone) [place] . [facility] Specimen source subject [Typ e]on 01-25-2024 Specimen source subject Nom Comment . [facility] Comment on above: Left Ureter Triamterene measurement in c alculuson 01-25-2024 Triamterene (Stone) [Mass fraction] TN . [facility] Triple phosphate/Total in St oneon 01-25-2024 Triple phosphate (Stone) [Mass fraction] TNP . [facility] Uric acid dihydrate crystals detection in stone by infrared spectroscopyon 01-25-2024 Urate dihydrate crystals Infrared spectroscopy Ql (Stone) TN . [facility] Estimated glomerular filtrat ion rate (GFR) non- Americanon 10-23-2023 GFR/1.73 sq M.predicted among non-blacks MDRD (S/P/Bld) [Vol rate/Area] mL/min/{1.73_m2} >=60 [facility] Laboratory - Chemistry and C hemistry - challengeon 10-23-2023 Calcium [Mass/Vol] 9.4 mg/dL 8.5-10.1 [facility] Chloride [Moles/Vol] 106 mmol/L 98-107 [facility] CO2 [Moles/Vol] 29.6 mmol/L 21.0-32.[address] [facility] Creatinine [Mass/Vol] 0.80 mg/dL 0.55-1.02 [facility] GFR/1.73 sq M.predicted MDRD (S/P/Bld) [Vol rate/Area] mL/min/{1.73_m2} >=60 [facility] Glucose [Mass/Vol] 81 mg/dL 74-106 [facility] [facility] Potassium [Moles/Vol] 3.8 mmol/L 3.5-5.1 [facility] Sodium [Moles/Vol] 142 mmol/L 136-145 [facility] Urea nitrogen [Mass/Vol] 17.0 mg/dL 7.0-18.0 [facility] Urea nitrogen/Creatinine [Mass ratio] 21.2 mg/mg [facility] No Panel Informationon 10-22 Troponin I High Sensitivity <4.0 pg/mL 4.0-51.3 [facility] Comment on above: CUT-OFF POINTS HAVE BEEN [...] terminationon 10-23-2023 Anion gap [Moles/Vol] 10.2 mmol/L [facility] MG MAMM SCREEN 3D ANNA CADon 05-31-2022 MG MAMM SCREEN 3D ANNA CAD Patient: LIZ KING Exam Date: 05/31/2022 : 1965 Gender:F Ordering : DR MIRYAM GUTHRIE D.O. Admission #: [id number] Family : Order #: [id number] CLICK HERE TO VIEW EXAM RADIOLOGY REPORT [...] leukemia cancer at age 80. LOCATION: [facility] BREAST COMPOSITION: Heterogeneously dense,which may obscure [...] M.D. on 05/31/2022 at 16:[address] [facility] VC INJ SCL [place] [employer] AIDE VEINSon 1 VC INJ SCL [place] [employer] AIDE VEINS Patient: LIZ KING Exam Date: 05/23/2022 : 1965 Gender:F Ordering : DR ANAHI MCNULTY M.D. Admission #: [id number] Family : Order #: [id number] CLICK HERE TO VIEW EXAM RADIOLOGY REPORT PROCEDURE: VEIN CENTER INJECTION SCLEROSING SOLUTION MULTIPLE VEINS SAME COMPARISON: VC INJ SCL [place] [employer] AIDE VEINS, 05/18/2022. INDICATIONS: Pain co-occurrent and due [...] Anahi Mcnulty MD on 05/23/2022 at 13:35 [facility] VC INJ SCL [place] AIDE VEINSon 1 VC INJ SCL [place] [employer] AIDE VEINS Patient: LIZ KING. Exam Date: 05/18/2022 : 1965 Gender:F Ordering : DR ANAHI MCNULTY M.D. Admission #: [id number] Family : Order #: [id number] CLICK HERE TO VIEW EXAM RADIOLOGY REPORT [...] Mcnulty MD on 05/18/2022 at 13:11 Normal [facility] VC CONSULT FOLLOWUPon 2021 VC CONSULT FOLLOWUP Patient: MARGARET KINGY MELISSA Gallegos. Exam Date: 05/13/2022 : 1965 Gender:F Ordering : DR ANAHI MCNULTY M.D. Admission #: [id number] Family : Order #: [id number] CLICK HERE TO VIEW EXAM RADIOLOGY REPORT [...] Mcnulty MD on 05/13/2022 at 12:57 Normal [facility] VC EXT VENOUS RT LIMITEDon 0 05-13-2022 VC EXT VENOUS RT LIMITED Patient: LIZ KING Exam Date: 05/13/2022 : 1965 Gender:F Ordering : DR ANAHI MCNULTY M.D. Admission #: [id number] Family : Order #: [id number] CLICK HERE TO VIEW EXAM RADIOLOGY REPORT [...] Anahi Mcnulty MD on 05/13/2022 at 12:55 [facility] VC INJ FOAM SCLERO W US MLTI on 05-09-2022 VC INJ FOAM SCLERO W US MLTI Patient: LIZ KING Exam Date: 05/09/2022 : 1965 Gender:F Ordering : DR ANAHI MCNULTY M.D. Admission #: [id number] Family : Order #: [id number] CLICK HERE TO VIEW EXAM RADIOLOGY REPORT [...] needed and (more content not included)... Normal [facility] VC CONSULT FOLLOWUPon 2021 VC CONSULT FOLLOWUP Patient: SPENCER KING Exam Date: 05/02/2022 : 1965 Gender:F Ordering : DR ANAHI MCNULTY M.D. Admission #: [id number] Family : Order #: [id number] CLICK HERE TO VIEW EXAM RADIOLOGY REPORT [...] Bell M.D. on 05/02/2022 at 13:15 Normal [facility] VC EXT VENOUS LT LIMITEDon 0 05-02-2022 VC EXT VENOUS LT LIMITED Patient: LIZ KING. Exam Date: 05/02/2022 : 1965 Gender:F Ordering : DR ANAHI MCNULTY M.D. Admission #: [id number] Family : Order #: [id number] CLICK HERE TO VIEW EXAM RADIOLOGY REPORT [...] Bell M.D. on 05/02/2022 at 13:07 Normal [facility] VC INJ FOAM SCLERO W US MLTI on 04-26-2022 VC INJ FOAM SCLERO W US MLTI Patient: LIZ KING Exam Date: 04/26/2022 : 1965 Gender:F Ordering : DR ANAHI MCNULTY M.D. Admission #: [id number] Family : Order #: [id number] CLICK HERE TO VIEW EXAM RADIOLOGY REPORT [...] GSV, (more content not included)... Normal [facility] VC CONSULT FOLLOWUPon 2021 VC CONSULT FOLLOWUP Patient: SPENCER KING Exam Date: 04/19/2022 : 1965 Gender:F Ordering : DR ANAHI MCNULTY M.D. Admission #: [id number] Family : Order #: [id number] CLICK HERE TO VIEW EXAM RADIOLOGY REPORT [...] Mcnulty MD on 04/19/2022 at 13:56 Normal [facility] VC EXT VENOUS RT LIMITEDon 0 04-19-2022 VC EXT VENOUS RT LIMITED Patient: LIZ KING Exam Date: 04/19/2022 : 1965 Gender:F Ordering : DR ANAHI MCNULTY M.D. Admission #: [id number] Family : Order #: [id number] CLICK HERE TO VIEW EXAM RADIOLOGY REPORT [...] Mcnulty MD on 04/19/2022 at 13:24 Normal [facility] VC ENDOVENOUS ABL 1ST V RTon 08-30-2022 VC ENDOVENOUS ABL 1ST V RT Patient: LIZ KING Exam Date: 04/12/2022 : 1965 Gender:F Ordering : DR ANAHI MCNULTY M.D. Admission #: [id number] Family : Order #: [id number] CLICK HERE TO VIEW EXAM RADIOLOGY REPORT [...] The total number of Joules delivered was 01548. The laser was active for 146 seconds [...] Mcnulty MD on 04/12/2022 at 13:30 Normal [facility] VC CONSULT FOLLOWUPon 2021 VC CONSULT FOLLOWUP Patient: SPENCER KING Exam Date: 03/29/2022 : 1965 Gender:F Ordering : DR ANAHI MCNULTY M.D. Admission #: [id number] Family : Order #: [id number] CLICK HERE TO VIEW EXAM RADIOLOGY REPORT [...] Bell M.D. on 03/29/2022 at 14:07 Normal [facility] VC EXT VENOUS LT LIMITEDon 0 03-29-2022 VC EXT VENOUS LT LIMITED Patient: LIZ KING ElShea Exam Date: 03/29/2022 : 1965 Gender:F Ordering : DR ANAHI MCNULTY M.D. Admission #: [id number] Family : Order #: [id number] CLICK HERE TO VIEW EXAM RADIOLOGY REPORT [...] Bell M.D. on 03/29/2022 at 14:02 Normal [facility] VC ENDOVENOUS ABL 1ST V LTon 03-22-2022 VC ENDOVENOUS ABL 1ST V LT Patient: LIZ KING Exam Date: 03/22/2022 : 1965 Gender:F Ordering : DR ANAHI MCNULTY M.D. Admission #: [id number] Family : Order #: [id number] CLICK HERE TO VIEW EXAM RADIOLOGY REPORT [...] Mcnulty MD on 03/22/2022 at 14:03 Normal [facility] VC CONSULT FOLLOWUPon 2021 VC CONSULT FOLLOWUP Patient: SPENCER KING. Exam Date: 02/25/2022 : 1965 Gender:F Ordering : DR ANAHI MCNULTY M.D. Admission #: [id number] Family : Order #: [id number] CLICK HERE TO VIEW EXAM RADIOLOGY REPORT [...] MD on 02/25/2022 at 14:[address] [facility] VC EXT VENOUS RT LIMITEDon 0 02-25-2022 VC EXT VENOUS RT LIMITED Patient: LIZ KING Exam Date: 02/25/2022 : 1965 Gender:F Ordering : DR ANAHI MCNULTY M.D. Admission #: [id number] Family : Order #: [id number] CLICK HERE TO VIEW EXAM RADIOLOGY REPORT [...] Mcnulty MD on 02/25/2022 at 14:03 Normal [facility] VC CONSULT FOLLOWUPon 2021 VC CONSULT FOLLOWUP Patient: SPENCER KING. Exam Date: 02/07/2022 : 1965 Gender:F Ordering : DR ANAHI MCNULTY M.D. Admission #: [id number] Family : Order #: [id number] CLICK HERE TO VIEW EXAM RADIOLOGY REPORT [...] Anahi Mcnulty MD on 02/07/2022 at 12:26 [facility] VC EXT VENOUS RT LIMITEDon 0 02-07-2022 VC EXT VENOUS RT LIMITED Patient: LIZ KING Exam Date: 02/07/2022 : 1965 Gender:F Ordering : DR ANAHI MCNULTY M.D. Admission #: [id number] Family : Order #: [id number] CLICK HERE TO VIEW EXAM RADIOLOGY REPORT [...] MD on 02/07/2022 at 12:[address] [facility] VC CONSULT FOLLOWUPon 2021 VC CONSULT FOLLOWUP Patient: SPENCER KING. Exam Date: 01/31/2022 : 1965 Gender:F Ordering : DR ANAHI MCNULTY M.D. Admission #: [id number] Family : Order #: [id number] CLICK HERE TO VIEW EXAM RADIOLOGY REPORT [...] Bell M.D. on 01/31/2022 at 15:59 Normal [facility] VC EXT VENOUS RT LIMITEDon 0 01-31-2022 VC EXT VENOUS RT LIMITED Patient: LIZ KING Exam Date: 01/31/2022 : 1965 Gender:F Ordering : DR ANAHI MCNULTY M.D. Admission #: [id number] Family : Order #: [id number] CLICK HERE TO VIEW EXAM RADIOLOGY REPORT [...] Bell M.D. on 01/31/2022 at 15:40 Normal [facility] VC ENDOVENOUS ABL 1ST V RTon 01-25-2022 VC ENDOVENOUS ABL 1ST V RT Patient: LIZ KING Exam Date: 01/25/2022 : 1965 Gender:F Ordering : DR ANAHI MCNULTY M.D. Admission #: [id number] Family : Order #: [id number] CLICK HERE TO VIEW EXAM RADIOLOGY REPORT [...] 36 cm from the entry 10 cm [id number] to 3 cm below the saphenofemoral junction. [...] on 01/25/2022 at 14:27 Approved by: Jayy Blel M.D. on 01/25/2022 at 14:30 Normal [facility] VC COMP CONSULTATIONon 12-23 VC COMP CONSULTATION Patient: LIZ KING Exam Date: 12/23/2021 : 1965 Gender:F Ordering : DR AYSE PRECIADO M.D. 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 The patient's symptoms are relieved by rest, [...] Mcnulty MD on 12/23/2021 at 13:56 Normal [facility] VC VENOUS REFLUX ANNA LMTon 0 12-23-2021 VC VENOUS REFLUX ANNA LMT Patient: LIZ KING Exam Date: 12/23/2021 : 1965 Gender:F Ordering : DR AYSE PRECIADO M.D. Admission #: [id number] Family : Order #: [id number] CLICK HERE TO VIEW EXAM RADIOLOGY REPORT [...] of thrombus. Deep venous reflux visualized. [employer] Associate: Dist/med calf 4.2 mm, 3.8s. Dist calf [...] MD on 12/23/2021 at 12:48 Normal [facility] SHANIA DOP LEG LTon 05-02-20 22 [place] [...] by: JAYY BELL Date: 2021-12-13 12:41 Normal [facility] Vital Signs Date Time Vital Sign Value Performing Clinician Giana leal 06-25-2024 13:36-0500 Body height 165.1 cm [employer] Work Phone: [facility] 06-25-2024 13:36-0500 Body mass index (BMI) [Ratio] 36.11 kg/m2 [employer] Work Phone: [facility] 06-25-2024 13:36-0500 Body weight 98.43 kg [employer] Work Phone: [facility] 06-25-2024 13:36-0500 Diastolic blood pressure 70 mm[Hg] [employer] Work Phone: [facility] 06-25-2024 13:36-0500 Systolic blood pressure 122 mm[Hg] [employer] Work Phone: [facility] 02-01-2024 14:32-0400 Body height 165.1 cm [facility] 02-01-2024 14:32-0400 Body mass index (BMI) [Ratio] 34.6 kg/m2 [facility] 02-01-2024 14:32-0400 Body weight 94.34 kg [facility] 02-01-2024 14:32-0400 Diastolic blood pressure 75 mm[Hg] [facility] 02-01-2024 14:32-0400 Heart rate 63 /min [facility] 02-01-2024 14:32-0400 Systolic blood pressure 121 mm[Hg] [facility] 01-25-2024 16:12-0400 Body weight 57 mg MD Ayse Preciado Work Phone: [facility] 11-16-2023 14:56-0400 Body height 165.1 cm MD Ayse Preciado Work Phone: [facility] 11-16-2023 14:56-0400 Body mass index (BMI) [Ratio] 34.7 kg/m2 MD Ayse Preciado Work Phone: [facility] 11-16-2023 14:56-0400 Body weight 94.51 kg MD Ayse Preciado Work Phone: [facility] 11-16-2023 14:56-0400 Diastolic blood pressure 81 mm[Hg] MD Ayse Preciado Work Phone: [facility] 11-16-2023 14:56-0400 Heart rate 70 /min MD Ayse Preciado Work Phone: [facility] 11-16-2023 14:56-0400 Systolic blood pressure 131 mm[Hg] MD Ayse Preciado Work Phone: [facility] 10-23-2023 14:13-0400 Body height 165.1 cm MD Ayse Preciado Work Phone: [facility] 10-23-2023 14:13-0400 Body mass index (BMI) [Ratio] 34.4 kg/m2 MD Ayse Preciado Work Phone: [facility] 10-23-2023 14:13-0400 Body weight 94 kg MD Ayse Preciado Work Phone: [facility] 10-23-2023 14:13-0400 Diastolic blood pressure 90 mm[Hg] MD Ayse Preciado Work Phone: [facility] 10-23-2023 14:13-0400 Heart rate 62 /min MD Ayse Preciado Work Phone: [facility] 10-23-2023 14:13-0400 Systolic blood pressure 134 mm[Hg] MD Ayse Preciado Work Phone: [facility] Encounters Encounter Date Encounter Type Care Provider Facility Start: 09-03-2024 ambulatory Gurdeep SWEENEY Facility :[facility] Start: 07-22-2024 End: 07-23-2024 Clinisync Result Encounter [...] 04-11-2024 ambulatory MD Ayse Preciado Work Phone: [facility] Work Phone: Start: 04-11-2024 End: 04-11-2024 Departed Referred MD Ayse Preciado Work Phone: [facility] Start: 04-11-2024 Non-patient / Non-visit MD Zoey Preciado Work Phone: [facility] Work Phone: Start: 02-19-2024 End: 02-19-2024 ambulatory Gurdeep SWEENEY [facility] Start: 02-19-2024 End: 02-19-2024 Patient encounter procedure Gurdeep SWEENEY [facility] Start: 02-07-2024 End: 02-07-2024 ambulatory Gurdeepsarah SWEENEY Facility:[facility] Start: 02-07-2024 End: 02-07-2024 Patient encounter procedure Gurdeep SWEENEY [facility] Start: 02-01-2024 End: 02-01-2024 ambulatory [facility] Work Phone: Start: 02-01-2024 End: 02-01-2024 Patient encounter procedure [facility] Work Phone: Start: 01-26-2024 ambulatory Gurdeep SWEENEY Facility:[facility] [place] Start: 01-25-2024 Non-patient / Non-visit [facility] Work Phone: Start: 01-25-2024 End: 01-25-2024 ambulatory Gurdeep SWEENEY Facility:CD:[id number] Start: 11-16-2023 End: 11-16-2023 ambulatory MD Ayse Preciado Work Phone: [facility] Work Phone: Start: 11-16-2023 End: 11-16-2023 Patient encounter procedure MD Ayse Preciado Work Phone: [facility] Work Phone: Start: 10-23-2023 End: 10-23-2023 ambulatory Ayse Preciado Facility:[facility] Start: 10-23-2023 End: 10-23-2023 Patient encounter procedure MD Ayse Preciado Work Phone: [facility] Work Phone: Start: 05-31-2022 End: 06-01-2022 [...] ANAHI MCNULTY Facility:[facility] Start: 02-22-[address] NAAHI MCNULTY Facilit y:[facility] Start: 02-10-[address] [...] for malign ant neoplasm of breast Mammogram [facility] Start: 08-01-2024 End: 08-01-2024 Patient encounter procedure 08/01/2024 10:50 AM EST Office Visit [facility] [address] [place] [address] Juan Antonio Flynn, DO [address] [place] [address] [facility] Start: 04-14-2024 Influenza vaccination Influenza Vacc ine (#1) [facility] Start: 02-01-2024 Patient referral [facility] Work Phone: Start: 10-23-2023 EKG 12 channel panel [facility] Start: 1995 Screening for malign ant neoplasm of cervix [facility] Start: 1986 Screening for malign ant neoplasm of cervix Pap Smear [facility] Start: 1965 Screening for malign ant neoplasm of colon [facility] Patient referral [facility] Work Phone: [facility] Payers Date Payer Category Payer Self-pay 2023 Unknown [id number] 2023 Private Health Insurance [employer] [id number] 1965 Unknown [id number] 2.0.1.820209.3.579.2. 1965 Unknown [id number] 2.840.1.183380.3.579.2. 1965 Unknown [id number] 2.840.1.680794.3.579.2. 59 1965 Unknown [id number] 2.840.1.959616.3.579.2. 59 1965 Unknown [id number] 2.840.1.340350.3.579.2. 59 1965 Unknown [id number] 2.840.1.303161.3.579.2. 59 1965 Unknown [id number] 2.840.1.277595.3.579.2. 59 1965 Unknown [id number] 2.16.840.1.324517.3.579.2. 593 1965 Unknown [id number] 2.16.840.1.666347.3.579.2. 593 1965 Unknown [id number] 2.16.840.1.802735.3.579.2. 593 1965 Unknown [id number] 2.16.840.1.458613.3.579.2. 593 1965 Unknown [id number] 2.16.840.1.200653.3.579.2. 593 1965 Unknown [id number] 2.16.840.1.215248.3.579.2. 593 1965 Unknown [id number] 2.16.840.1.636324.3.579.2. 593 1965 Unknown [id number] 2.16.840.1.685905.3.579.2. 593 1965 Unknown [id number] 2.16.840.1.023188.3.579.2. 593 1965 Unknown [id number] 2.16.840.1.803867.3.579.2. 593 1965 Unknown [id number] 2.16.840.1.618541.3.579.2. 593 1965 Unknown [id number] 2.16.840.1.200980.3.579.2. 593 1965 Unknown [id number] 2.16.840.1.456483.3.579.2. 593 1965 Unknown [id number] 2.16.840.1.381148.3.579.2. 593 1965 Unknown [id number] 2.16.840.1.540432.3.579.2. 727 1965 Unknown [id number] 2.16.840.1.317902.3.579.2. 727 1965 Unknown [id number] 2.16.840.1.714602.3.579.2. 727 1965 Unknown [id number] 2.16.840.1.266054.3.579.2. 727 1959 Unknown [id number] Unknown [id number] 2.16.840.1.146869.3.579.2. 531 Unknown [id number] 2.16.840.1.040735.3.579.2. 531 Social History Date Type Detail Facility Start: 12-16-2020 End: 10-23-2023 Tobacco smoking status VTIS Never smoked tobacco (finding) [facility] Start: 1965 Sex Assigned At Female [facility] Sex Assigned At Female [facility] Tobacco smoking status [facility] Tobacco smoking consumption unknown [facility] Start: 04-18-2024 Gender identity Identifies as female gender (finding) [facility] Clinical Notes 02-01-2024 to [...] on 07/24/[address] Flynn at [facility]. MEDICATIONS Current Outpatient Medications Medication Instructions [...] nursing note reviewed. Exam conducted with a stage technician present. Vitals: Estimated body mass index is [...] reviewed, and patient is to proceed to [facility] OR. Follow Up: Patient is to follow up at 1 & 6 weeks post operative to assess proper healing and recovery from procedure. Documented by Janina Garcia LPN on behalf of: Juan Antonio Flynn DO documented in this encounter [facility] 02-19-2024 Hospital Discharg e [...] Care 01/29/2024 11:42:41 With:Gurdeep SWEENEY Address: [address] Business (1) When: Unknown Comments:The stent [...] decision at any time.Have a great day. [facility] 02-19-2024 Note Patient Education Cystoscopy with Stent [...] you have a fever over 100 degrees. [facility] 02-01-2024 Hospital Discharg e instructions Ambulatory OrdersReferral to PIPE CHIPPER Time Frame: 02/01/24, Location: [facility] Work Phone: Evaluation + Plan note Future Appointments Appointment Date:02/12/2024 08:00:00 AM Scheduled Provider: Location:[facility] Appointment Type:Urology CALL PAT FT Appointment Date:02/19/2024 03:15:00 PM Scheduled Provider: Location:[facility] Appointment Type:Urology FT [facility] Evaluation + Plan note Future Appointments Appointment Date:09/03/2024 02:30:00 PM Scheduled Provider:Gurdeep SWEENEY MD Location:[facility] Appointment Type:URO Office Visit [facility] Evaluation note Diagnosis Onset Date Epigastric abdominal pain ac brock HTN (hypertension) [facility] Work Phone: Evaluation note* Diagnosis Onset Date Resolution Status HTN (hypertension) acute Uterine mass [facility] Work Phone: Evaluation note* Diagnosis Onset Date Resolution Status HTN (hypertension) acute Nephrolithiasis acute Uterine mass [facility] Work Phone: Evaluation note* Diagnosis Pre-op examination Enlarged uterus Hypertrophy of uterus Pelvic pain in female Unspecified symptom associated with female genital organs documented [facility] Narrative No data available for this section [facility] Hospital Discharge instructions No data available for this section [facility] progress note No data available for this section [facility] Summary Purpose Family History Relationship Condition [...] and content) DATE CREATED AUTHOR 06/07/2022 [facility] DATE CREATED AUTHOR AUTHOR'S ORGANIZ ATION 02/27/2024 [facility] DATE CREATED AUTHOR AUTHOR'S ORGANIZ ATION 04/21/2024 [facility] Care Teams (unrecognized sec tion [...] November 16, 2023 End: November 16, 2023 Dobie Worker Relationship Specialty Start Date End Date Ayse Preciado MD [address] [place] [address] PCP - General Family Medicine 02/22/24 Dobie Worker Relationship Specialty Start Date End Date Ayse Preciado MD [address] [place] [id number] PCP - General Family Medicine 02/22/24 Goals [...] BE BASED ON THE PRIMARY CLINICAL RECORDS. [facility] [employer] [facility]. provides no warranty or guarantee of the accuracy or completeness of information in this document.
--- OUTSIDE RECORDS SUMMARY | 2024-07-26 11:54 | XMS_ITS | CCD ---
Author Organization [facility] Care Team Providers Care Pelt Grader Name Role Phone HAMLET, DR ANAHI Reich [...] Santos Consulting Unavailable WEST, DR ANAHI Reich Admmagail Unavailable WEST, DR ANAHI Reich Attending Unavailable [...] Unavailable MD Ayse Preciado Primary Care Provider [phone] MD Ayse Preciado Attending Provider AYSE PRECIADO [...] drugs] Drug Allergy Eruption of skin (disorder) [facility] (2 sources) Sulfamethoxazole / Trimethoprim Drug Allergy [facility] (8 sources) Sulfamethoxazole; Translations: [sulfamethoxazole] Drug Allergy 11-16-19 [facility] (4 sources) Sulfonamides (Antibiotic); Translations: [Sulfa (Sulfonamide Antibiotics)] Allergy to substance 11-16-19 [facility] (8 sources) Trimethoprim; Translations: [trimethoprim] Drug Allergy 11-16-19 [facility] (2 sources) Sulfonamides (Antibiotic); Translations: [sulfa drugs] Drug allergy Eruption of skin (disorder) [facility] (4 sources) Sulfamethoxazole / Trimethoprim Drug Allergy 02-22-20 [facility] Healthcare Work Phone: (4 sources) Sulfonamides [...] afterwards, # 2 tab(s), Refills(s) 0, Pharmacy: [facility]/pharmacy #[id number] Start Date: 01/29/24 Status: Ordered fluticasone furoate [...] Nom (Bld) Blood group A Rh(D) negative [facility] , [facility] ALL CBC WITH AUTO DIFFon BASOPHILS ABSOLUTE AUTO 0.[address] [facility] Basophils/100 WBC (Bld) 0.8 % 0.2 - 2.0 % [facility] Eosinophils/100 WBC (Bld) 2.2 % 0.9 - 7.0 % [facility] Erythrocyte distribution width (RBC) [Ratio] 12.1 % 11.0 - 15.0 % [facility] Hematocrit (Bld) [Volume fraction] 37 % 36.0 - 48.0 % [facility] Hemoglobin (Bld) [Mass/Vol] 12.8 g/dL 12.0 - 16.0 g/dL [facility] IMMATURE GRANULOCYTES ABS AUTO 0.02 [facility] Immature granulocytes/100 WBC (Bld) 0.3 % 0.0 - 0.5 % [facility] LYMPHOCYTES ABSOLUTE AUTO 1.7 [facility] Lymphocytes/100 WBC (Bld) 29.1 % 20.5 - 60.0 % [facility] MCH (RBC) [Entitic mass] 29.3 pg 26.7 - 34.0 pg [facility] MCHC (RBC) [Mass/Vol] 34.6 g/dL 29.9 - 35.2 g/dL [facility] MCV (RBC) [Entitic vol] 84.7 fL 81.0 - 99.0 fL [facility] MONOCYTES ABSOLUTE AUTO 0.[address] [facility] Monocytes/100 WBC (Bld) 8.2 % 1.7 - 12.0 % [facility] NEUTROPHILS ABSOLUTE AUTO 3.6 [facility] Neutrophils/100 WBC (Bld) 59.4 % 43.0 - 75.0 % [facility] Platelet mean volume (Bld) [Entitic vol] 10.2 fL 9.5 - 13.5 [facility]L [facility] PLT 242 [facility] RBC 4.37 [facility] WBC 6 [facility] Basophils Auto (Bld) [#/Vol] on 04-11-2024 Basophils (Bld) [#/Vol] 0.0 10 3/uL 0.0-0.1 [facility] Basophils/100 WBC Auto (Bld) on 04-11-2024 Basophils/100 WBC (Bld) 0.8 % 0.2-2.0 [facility] Eosinophils/100 WBC Auto (Bl d)on 04-11-2024 Eosinophils/100 WBC (Bld) 3.3 % 0.9-7.0 [facility] Erythrocyte distribution wid th Auto (RBC) [Ratio]on 04-11-2024 Erythrocyte distribution width (RBC) [Ratio] 12.1 % 11.0-15.0 [facility] Hematocrit Auto (Bld) [Volum e fraction]on 04-11-2024 Hematocrit (Bld) [Volume fraction] 36.5 % 36.0-48.0 [facility] Hemoglobin [Mass/volume] in Bloodon 04-11-2024 Hemoglobin (Bld) [Mass/Vol] 13.1 g/dL 12.0-16.0 [facility] Braden 04-11-2024 L Specimen: [id number] R eceived: 04/11/24 Status: ERIC Aguirre Num: [id number] Spec Type: Surgical Subm Dr: Juan Antonio Flynn Tissues: A Cervical Polyp (CERV POLYP) B Endometrium - Curettings (ENDOM CUR) Procedures: HE/4, Gross/Micro L4/2 Age/ Patient Sex Location Account Attending Physician Liz King 59/F [facility] [id number] Juan Antonio Flynn SPEC NUM: [id number] RECD: 04/11/24 STATUS: ERIC AGUIRRE NUM: [id number] MAURY: 04/11/24- SUBM DR: Juan Antonio Flynn ENTERED: 04/11/24 [facility] DR: Maciej,Lab SPEC TYPE: Surgical DEPT: NAVYA BENJAMIN ENTERED BY: [id number] RECV BY: [id number] ORDERED: HE/4, Gross/Micro L4/2 ORDERED: HE/4, Gross/Micro [...] x 1.0 x 0.4 cm -------- Specimen: [id number] Received: 04/11/24 Status: ERIC Tmiothy Num: [id number] Spec Type: Surgical Subm Dr: Juan Antonio Flynn Tissues: A Cervical Polyp (CERV POLYP) B Endometrium - Curettings (ENDOM CUR) Procedures: LU/Jan Tineo/Perez L4/2 -------- Patient: Liz King [id number] (Continued) -------- Specimen: [id number] Received: 04/11/24 (Continued) Gross Description (Continued) Signed (signature on file) Floyd Ochoa MD 04/19/24 0930 -------- Specimen: [id number] Received: 04/11/24 Status: ERIC Aguirre Num: [id number] Spec Type: Surgical Subm Dr: Juan Antonio Flynn Tissues: A Cervical Polyp (CERV POLYP) B Endometrium - Curettings (ENDOM CUR) Procedures: HE/Rivka, Gross/Micro L4/2 -------- Patient: Margaret Kingyccate Gallegos [id number] (Continued) -------- Specimen: [id number] Received: 04/11/24 (Continued) Gross Description (Continued) in aggregate. The specimen is entirely submitted in cassette B1. Microscopic Description Microscopic examinations are performed supporting the above interpretation CPT Codes 93698K3 -------- -------- Specimen: [id number] Received: 04/11/24 Status: ERIC Aguirre Num: [id number] Spec Type: Surgical Subm Dr: Juan Antonio Flynn Tissues: A Cervical Polyp (CERV POLYP) B Endometrium - Curettings (ENDOM CUR) Procedures: BARRON, Jan/Micro L4/2 -------- Patient: Liz King [id number] (Continued) -------- Signed (signature on file) Floyd Ochoa MD 04/19/24 1050 Normal [facility] Laboratory - Hematology and Cell countson 04-11-2024 Immature granulocytes/100 WBC (Bld) 0.2 % 0.0-0.5 [facility] Leukocytes [#/volume] correc aubrey for nucleated erythrocytes in Blood by Automated counon 04-11-2024 WBC corrected for nucl RBC Auto (Bld) [#/Vol] 5.2 10 3/uL 4.0-11.0 [facility] Lymphocytes Auto (Bld) [#/Vo l]on 04-11-2024 Lymphocytes (Bld) [#/Vol] 1.8 10 3/uL 1.2-3.8 [facility] Lymphocytes/100 WBC Auto (Bl d)on 04-11-2024 Lymphocytes/100 WBC (Bld) 33.8 % 20.5-60.0 [facility] MCH Auto (RBC) [Entitic mass ]on 04-11-2024 MCH (RBC) [Entitic mass] 29.8 pg 26.7-34.0 [facility] MCHC Auto (RBC) [Mass/Vol]on 04-11-2024 MCHC (RBC) [Mass/Vol] 35.9 g/dL High 29.9-35.2 [facility] MCV Auto (RBC) [Entitic vol] on 04-11-2024 MCV (RBC) [Entitic vol] 83.1 fL 81.0-99.0 [facility] Monocytes Auto (Bld) [#/Vol] on 04-11-2024 Monocytes (Bld) [#/Vol] 0.5 10 3/uL 0.3-0.8 [facility] Monocytes/100 WBC Auto (Bld) on 04-11-2024 Monocytes/100 WBC (Bld) 10.0 % 1.7-12.0 [facility] Neutrophils Auto (Bld) [#/Vo l]on 04-11-2024 Neutrophils (Bld) [#/Vol] 2.7 10 3/uL 1.4-6.5 [facility] Neutrophils/100 WBC Auto (Bl d)on 04-11-2024 Neutrophils/100 WBC (Bld) 51.9 % 43.0-75.0 [facility] No Panel Informationon 04-11 Eosinophils # (Auto) 0.2 10 3/uL 0.0-0.7 [facility] Immature Granulocyte # (Auto) 0.01 10 3/uL 0.00-0.03 [facility] Platelet mean volume Auto (B ld) [Entitic vol]on 04-11-2024 Platelet mean volume (Bld) [Entitic vol] 10.0 fL 9.5-13.5 [facility] Platelets Auto (Bld) [#/Vol] on 04-11-2024 Platelets (Bld) [#/Vol] 237 10 3/uL 150-450 [facility] RBC Auto (Bld) [#/Vol]on RBC (Bld) [#/Vol] 4.39 10 6/uL 4.20-5.40 [facility] Inpatient Patient Summaryon 02-19-2024 Inpatient Patient Summary Inpatient Patient Summary [address] [address] Clinical Summary Person Information Name: LIZ KING Age: 59 Years : 1965 Sex: Female PCP: AYSE PRECIADO MD Marital Status: Race: White Ethnicity: Non- or Language: Kyrgyz Visit Id: Visit Reason: KIDNEY STONE Speciality: Acuity: Enc Type: Outpatient Med Service: Surgery Arrival: 02/19/2024 14:32:49 Discharge: Dispo Type: Address: [address] [place] [id number] Provider Notes: Diagnosis: Problems Active Pilar cysts [...] Gurdeep SWEENEY [address], [address], [address] [address] Business (1) Comments: The stent [...] with Stent Removal Discharge Instructions (Custom) Normal [facility] Main OR Intraoperative Recor don 02-19-2024 Main OR Intraoperative Record Main OR Intraoperative Record IntraOp Document Type FTURO Summary Primary Physician: Gurdeep SWEENEY MD Finalized Date/Time: 02/19/24 15:19:48 Pt. Name: FERNANDOLIZ/Sex: 1965 Female Med Rec #: [id number] Physician: Gurdeep SWEENEY MD Financial #: [id number] Pt. Type: O Room/Bed: / Admit/Disch: 02/19/24 [...] Kimberly A Role Performed Surgeon - Primary Line Maintenance Supervisor - Primary Scrub - Primary Time In [...] 02/19/24 15:19 Ludy Dietrich 02/19/24 15:19 Normal [facility] Main OR Preoperative Recordo n 02-19-2024 Main OR Preoperative Record Main OR Preoperative Record Holding Area Document Type FTURO Summary Primary Physician: Gurdeep SWEENEY MD Finalized Date/Time: 02/19/24 14:49:34 Pt. Name: FERNANDOLIZ./Sex: 1965 Female Med Rec #: [id number] Physician: Gurdeep SWEENEY MD Financial #: [id number] Pt. Type: O Room/Bed: / Admit/Disch: 02/19/24 [...] TORREY Castelan RN, Ruthann 02/19/24 14:49 Normal [facility] Operative Reporton Operative Report Operative Report [...] urine/metabolic workup prior to that visit.. Normal [facility] Comment on above: Result Comment: Elec tronically Signed By: Gurdeep SWEENEY MD\.br\Date and Time Signed: 02/19/24 15:22 EDT Outpatient Surgery Discharge Instructionon 02-19-2024 Outpatient Surgery Discharge Instruction Outpatient Surgery Discharge Instruction [address] [address] Patient Discharge Instructions PERSON INFORMATION [...] Follow up: With: Address: When: Gurdeep SWEENEY [address] [address], [address], [address] [address] Business (1) Comments: The stent [...] to serve you. Thank you for choosing [facility] Consultation Noteon 02-01-20 24 Consultation Note [id number]#1.00TIFF [facility] Insurance Correspondence Off iceon 01-30-2024 Insurance Correspondence Office [id number]#1.00TIFF [facility] Operative Reporton Operative Report [id number]#1.00TIFF [facility] Ammonium urate crystals dete ction in stone by infrared spectroscopyon 01-25-2024 Ammonium urate crystals Infrared spectroscopy Ql (Stone) TNP . [facility] Basophils Auto (Bld) [#/Vol] on 01-25-2024 Basophils (Bld) [#/Vol] 0.0 10 3/uL 0.0-0.1 [facility] Basophils/100 WBC Auto (Bld) on 01-25-2024 Basophils/100 WBC (Bld) 0.4 % 0.2-2.0 [facility] Calcium bilirubinate measure menton 01-25-2024 Calcium bilirubinate (Stone) [Mass fraction] TNP . [facility] Calcium carbonate (Stone) [M ass fraction]on 01-25-2024 Stone Calcium Carbonate TNP . [facility] Calcium hydrogen phosphate d ihydrate (Stone) [Mass fraction]on 01-25-2024 Stone Calcium Hydrogen Phosphate TNP . [facility] Calcium oxalate dihydrate cr ystals detection in stone by infrared spectroscopyon 01-25-2024 Calcium oxalate dihydrate crystals Infrared spectroscopy Ql (Stone) 40 % . [facility] Calcium oxalate monohydrate crystal detectionon 01-25-2024 Calcium oxalate monohydrate crystals Infrared spectroscopy Ql (Stone) 60 % . [facility] Calcium phosphate measuremen ton 01-25-2024 Calcium phosphate (Stone) [Mass fraction] TNP . [facility] Calculus analysis interpreta tion in stoneon 01-25-2024 Calculus analysis [Interp] TNP . [facility] Calculus analysis [Interp] Comment . [facility] Comment on above: Calculus received we t. Wet calculi must be dried beforeanalysis, which delays reporting of results. Leaving calculiwet (such as water, saline, blood, urine) may lead tochanges in composition. Physician questions regarding Calculi Analysis contactLabCorp at: [phone]. Calculus analysis with calcu katarina photography interpretation in stoneon 01-25-2024 Calculus analysis with calculus photography [Interp] Comment . [facility] Comment on above: Photograph will foll ow under a separate cover Cellular material measuremen t in stone by estimated (mass/mass)on 01-25-2024 Cellular material Est (Stone) [Mass/Mass] TNP . [facility] Cholesterol [Mass/volume] in Serum or Plasmaon 01-25-2024 Cholesterol [Mass/Vol] TNP . [facility] Composition of stoneon 01-24 Composition Nom (Stone) Comment . [facility] Comment on above: Percentage (Represen ts the % composition) Cystine measurementon 2023 Cystine (Unsp spec) [Moles/Vol] TNP . [facility] Determination of color of ca lculuson 01-25-2024 Color (Stone) Brown . [facility] Eosinophils/100 WBC Auto (Bl d)on 01-25-2024 Eosinophils/100 WBC (Bld) 1.5 % 0.9-7.0 [facility] Erythrocyte distribution wid th Auto (RBC) [Ratio]on 01-25-2024 Erythrocyte distribution width (RBC) [Ratio] 12.5 % 11.0-15.0 [facility] Estimated glomerular filtrat ion rate (GFR) non- Americanon 01-25-2024 GFR/1.73 sq M.predicted among non-blacks MDRD (S/P/Bld) [Vol rate/Area] 57 mL/min/{1.73_m2} Low >=60 [facility] Globulin Calc (S) [Mass/Vol] on 01-25-2024 Globulin (S) [Mass/Vol] 3.5 g/dL [facility] Hematocrit Auto (Bld) [Volum e fraction]on 01-25-2024 Hematocrit (Bld) [Volume fraction] 39.7 % 36.0-48.0 [facility] Hemoglobin [Mass/volume] in Bloodon 01-25-2024 Hemoglobin (Bld) [Mass/Vol] 13.6 g/dL 12.0-16.0 [facility] Laboratory - Chemistry and C hemistry - challengeon 01-25-2024 Albumin [Mass/Vol] 4.2 g/dL 3.4-5.0 [facility] ALP [Catalytic activity/Vol] 87 U/L 46-116 [facility] ALT [Catalytic activity/Vol] 42 U/L 14-59 [facility] AST [Catalytic activity/Vol] 27 U/L 15-37 [facility] Bilirubin [Mass/Vol] 0.4 mg/dL 0.2-1.0 [facility] Calcium [Mass/Vol] 9.4 mg/dL 8.5-10.1 [facility] Chloride [Moles/Vol] 105 mmol/L 98-107 [facility] CO2 [Moles/Vol] 28.5 mmol/L 21.0-32.0 [facility] Creatinine [Mass/Vol] 1.00 mg/dL 0.55-1.02 [facility] GFR/1.73 sq M.predicted MDRD (S/P/Bld) [Vol rate/Area] mL/min/{1.73_m2} >=60 [facility] Glucose [Mass/Vol] 141 mg/dL High 74-106 [facility] Potassium [Moles/Vol] 3.9 mmol/L 3.5-5.1 [facility] Protein [Mass/Vol] 7.7 g/dL 6.4-8.2 [facility] Sodium [Moles/Vol] 140 mmol/L 136-145 [facility] Urea nitrogen [Mass/Vol] 19.0 mg/dL High 7.0-18.0 [facility] Urea nitrogen/Creatinine [Mass ratio] 19.0 mg/mg [facility] Bilirubin Ql (U) Negative NEGATIVE [facility] Glucose (U) [Mass/Vol] Negative NEGATIVE [facility] Ketones Ql (U) Negative NEGATIVE [facility] pH (U) 6.0 [pH] 5.0-9.0 [facility] Specific gravity (U) [Rel density] >=1.030 Abnormal 1.005-1.025 [facility] Urobilinogen Qn (U) 0.2 {Erum'U}/dL 0.2-1.0 [facility] Laboratory - Hematology and Cell countson 01-25-2024 Immature granulocytes/100 WBC (Bld) 0.4 % 0.0-0.5 [facility] Laboratory - Specimen inform ationon 01-25-2024 Appearance (U) CLEAR CLEAR [facility] Color (U) YELLOW YELLOW [facility] Laboratory - Urinalysison Leukocyte esterase Test strip Ql (U) TRACE Abnormal NEGATIVE [facility] Mucus Ql (Urine sed) NONE SEEN NONE SEEN [facility] Nitrite Ql (U) Negative NEGATIVE [facility] Protein Ql (U) 30 mg/dL Abnormal NEG/TRACE [facility] Leukocytes [#/volume] correc aubrey for nucleated erythrocytes in Blood by Automated counon 01-25-2024 WBC corrected for nucl RBC Auto (Bld) [#/Vol] 7.5 10 3/uL 4.0-11.0 [facility] Lymphocytes Auto (Bld) [#/Vo l]on 01-25-2024 Lymphocytes (Bld) [#/Vol] 1.1 10 3/uL Low 1.2-3.8 [facility] Lymphocytes/100 WBC Auto (Bl d)on 01-25-2024 Lymphocytes/100 WBC (Bld) 14.5 % Low 20.5-60.0 [facility] MCH Auto (RBC) [Entitic mass ]on 01-25-2024 MCH (RBC) [Entitic mass] 28.8 pg 26.7-34.0 [facility] MCHC Auto (RBC) [Mass/Vol]on 01-25-2024 MCHC (RBC) [Mass/Vol] 34.3 g/dL 29.9-35.2 [facility] MCV Auto (RBC) [Entitic vol] on 01-25-2024 MCV (RBC) [Entitic vol] 83.9 fL 81.0-99.0 [facility] Measurement of proportion of calculus composed of dried blood (mass/mass)on 01-25-2024 Blood.dried (Stone) [Mass fraction] TNP . [facility] Monocytes Auto (Bld) [#/Vol] on 01-25-2024 Monocytes (Bld) [#/Vol] 0.4 10 3/uL 0.3-0.8 [facility] Monocytes/100 WBC Auto (Bld) on 01-25-2024 Monocytes/100 WBC (Bld) 5.6 % 1.7-12.0 [facility] Neutrophils Auto (Bld) [#/Vo l]on 01-25-2024 Neutrophils (Bld) [#/Vol] 5.9 10 3/uL 1.4-6.5 [facility] Neutrophils/100 WBC Auto (Bl d)on 01-25-2024 Neutrophils/100 WBC (Bld) 77.6 % High 43.0-75.0 [facility] Newberyite crystals detectio n in stone by infrared spectroscopyon 01-25-2024 Newberyite crystals Infrared spectroscopy Ql (Stone) TNP . [facility] No Panel Informationon 01-24 Stone 2,8 Dihydroxyadenine TNP . [facility] Stone Analysis Disclaimer Comment . [facility] Comment on above: Calculi report will follow via computer, mail or courierdelivery. This test was devdandy nguyen and its performance characteristicsdetermined by [employer]. It has not been cleared or approvedby the Food and Drug Administration.Performed at: [address] [id number] Director: Jessica Morales PhD, Phone: [phone] Stone Bilirubinate TNP . [facility] Stone Calcium Palmitate TNP . [facility] Stone Calcium Stearate TNP . [facility] Stone Drug or Metabolite TNP . [facility] Stone Other Constituent TNP . [facility] Stone Xanthine TNP . [facility] Eosinophils # (Auto) 0.1 10 3/uL 0.0-0.7 [facility] Immature Granulocyte # (Auto) 0.03 10 3/uL 0.00-0.03 [facility] Urine Bacteria LARGE #/HPF Abnormal NONE SEEN [facility] Urine Calcium Oxalate Crystals RARE [facility] Urine Culture Reflexed YES [facility] Urine Occult Blood LARGE Abnormal NEGATIVE [facility] Urine Other Casts NONE SEEN #/LPF NONE SEEN [facility] Urine Other Crystals Seen #/HPF Abnormal None Seen [facility] Urine RBC 20-50 #/HPF Abnormal 0-2 [facility] Urine Squamous Epithelial Cells FEW #/LPF Abnormal NONE/RARE [facility] Urine WBC 0-2 #/HPF Abnormal NONE SEEN [facility] Platelet mean volume Auto (B ld) [Entitic vol]on 01-25-2024 Platelet mean volume (Bld) [Entitic vol] 10.2 fL 9.5-13.5 [facility] Platelets Auto (Bld) [#/Vol] on 01-25-2024 Platelets (Bld) [#/Vol] 249 10 3/uL 150-450 [facility] RBC Auto (Bld) [#/Vol]on RBC (Bld) [#/Vol] 4.73 10 6/uL 4.20-5.40 [facility] Serum or plasma albumin/glob ulin mass ratioon 01-25-2024 Albumin/Globulin [Mass ratio] 1.2 {ratio} [facility] Serum or plasma anion gap de terminationon 01-25-2024 Anion gap [Moles/Vol] 10.4 mmol/L [facility] Size [Entitic volume] of Sto neon 01-25-2024 Size (Stone) [Entitic vol] 7x2 mm . [facility] Comment on above: Multiple pieces rece ived. Dimensions of the largest piecereported. Sodium urate crystals detect ion in stone by infrared spectroscopyon 01-25-2024 Sodium urate crystals Infrared spectroscopy Ql (Stone) TN . [facility] Specimen source subject [Typ e]on 01-25-2024 Specimen source subject Nom Comment . [facility] Comment on above: Left Ureter Triamterene measurement in c alculuson 01-25-2024 Triamterene (Stone) [Mass fraction] TN . [facility] Triple phosphate/Total in St oneon 01-25-2024 Triple phosphate (Stone) [Mass fraction] TNP . [facility] Uric acid dihydrate crystals detection in stone by infrared spectroscopyon 01-25-2024 Urate dihydrate crystals Infrared spectroscopy Ql (Stone) TN . [facility] Estimated glomerular filtrat ion rate (GFR) non- Americanon 10-23-2023 GFR/1.73 sq M.predicted among non-blacks MDRD (S/P/Bld) [Vol rate/Area] mL/min/{1.73_m2} >=60 [facility] Laboratory - Chemistry and C hemistry - challengeon 10-23-2023 Calcium [Mass/Vol] 9.4 mg/dL 8.5-10.1 [facility] Chloride [Moles/Vol] 106 mmol/L 98-107 [facility] CO2 [Moles/Vol] 29.6 mmol/L 21.0-32.0 [facility] Creatinine [Mass/Vol] 0.80 mg/dL 0.55-1.02 [facility] GFR/1.73 sq M.predicted MDRD (S/P/Bld) [Vol rate/Area] mL/min/{1.73_m2} >=60 [facility] Glucose [Mass/Vol] 81 mg/dL 74-106 [facility] Potassium [Moles/Vol] 3.8 mmol/L 3.5-5.1 [facility] Sodium [Moles/Vol] 142 mmol/L 136-145 [facility] Urea nitrogen [Mass/Vol] 17.0 mg/dL 7.0-18.0 [facility] Urea nitrogen/Creatinine [Mass ratio] 21.2 mg/mg [facility] No Panel Informationon 10-22 Troponin I High Sensitivity <4.0 pg/mL 4.0-51.3 [facility] Comment on above: CUT-OFF POINTS HAVE BEEN [...] terminationon 10-23-2023 Anion gap [Moles/Vol] 10.2 mmol/L [facility] MG MAMM SCREEN 3D ANNA CADon 05-31-2022 MG MAMM SCREEN 3D ANNA CAD Patient: LIZ KING Exam Date: 05/31/2022 : 1965 Gender:F Ordering : DR MIRYAM GUTHRIE D.O. Admission #: [id number] Family : Order #: [id number] CLICK HERE TO VIEW EXAM RADIOLOGY REPORT [...] leukemia cancer at age 80. LOCATION: [facility] BREAST COMPOSITION: Heterogeneously dense,which may obscure [...] M.D. on 05/31/2022 at 16:00 Normal [facility] VC INJ SCL ROBERT VALIDATION ARCHITECT VEINSon 1 VC INJ SCL ROBERT VALIDATION ARCHITECT VEINS Patient: LIZ KING Exam Date: 05/23/2022 : 1965 Gender:F Ordering : DR ANAHI MCNULTY M.D. Admission #: [id number] Family : Order #: [id number] CLICK HERE TO VIEW EXAM RADIOLOGY REPORT PROCEDURE: VEIN CENTER INJECTION SCLEROSING SOLUTION MULTIPLE VEINS SAME COMPARISON: VC INJ SCL ROBERT VALIDATION ARCHITECT VEINS, 05/18/2022. INDICATIONS: Pain co-occurrent and due [...] Anahi Mcnulty MD on 05/23/2022 at 13:35 [facility] VC INJ SCL ROBERT VALIDATION ARCHITECT VEINSon 1 VC INJ SCL ROBERT VALIDATION ARCHITECT VEINS Patient: LIZ KING. Exam Date: 05/18/2022 : 1965 Gender:F Ordering : DR ANAHI MCNULTY M.D. Admission #: [id number] Family : Order #: [id number] CLICK HERE TO VIEW EXAM RADIOLOGY REPORT [...] Mcnulty MD on 05/18/2022 at 13:11 Normal [facility] VC CONSULT FOLLOWUPon 2021 VC CONSULT FOLLOWUP Patient: MARGARET KINGY MELISSA Gallegos. Exam Date: 05/13/2022 : 1965 Gender:F Ordering : DR ANAHI MCNULTY M.D. Admission #: [id number] Family : Order #: [id number] CLICK HERE TO VIEW EXAM RADIOLOGY REPORT [...] Mcnulty MD on 05/13/2022 at 12:57 Normal [facility] VC EXT VENOUS RT LIMITEDon 0 05-13-2022 VC EXT VENOUS RT LIMITED Patient: LIZ KING Exam Date: 05/13/2022 : 1965 Gender:F Ordering : DR ANAHI MCNULTY M.D. Admission #: [id number] Family : Order #: [id number] CLICK HERE TO VIEW EXAM RADIOLOGY REPORT [...] Anahi Mcnulty MD on 05/13/2022 at 12:55 [facility] VC INJ FOAM SCLERO W US MLTI on 05-09-2022 VC INJ FOAM SCLERO W US MLTI Patient: LIZ KING Exam Date: 05/09/2022 : 1965 Gender:F Ordering : DR ANAHI MCNULTY M.D. Admission #: [id number] Family : Order #: [id number] CLICK HERE TO VIEW EXAM RADIOLOGY REPORT [...] needed and (more content not included)... Normal [facility] VC CONSULT FOLLOWUPon 2021 VC CONSULT FOLLOWUP Patient: SPENCER KING Exam Date: 05/02/2022 : 1965 Gender:F Ordering : DR ANAHI MCNULTY M.D. Admission #: [id number] Family : Order #: [id number] CLICK HERE TO VIEW EXAM RADIOLOGY REPORT [...] Bell M.D. on 05/02/2022 at 13:15 Normal [facility] VC EXT VENOUS LT LIMITEDon 0 05-02-2022 VC EXT VENOUS LT LIMITED Patient: LIZ KING. Exam Date: 05/02/2022 : 1965 Gender:F Ordering : DR ANAHI MCNLUTY M.D. Admission #: [id number] Family : Order #: [id number] CLICK HERE TO VIEW EXAM RADIOLOGY REPORT [...] Bell M.D. on 05/02/2022 at 13:07 Normal [facility] VC INJ FOAM SCLERO W US MLTI on 04-26-2022 VC INJ FOAM SCLERO W US MLTI Patient: LIZ KING Exam Date: 04/26/2022 : 1965 Gender:F Ordering : DR ANAHI MCNULTY M.D. Admission #: [id number] Family : Order #: [id number] CLICK HERE TO VIEW EXAM RADIOLOGY REPORT [...] GSV, (more content not included)... Normal [facility] VC CONSULT FOLLOWUPon 2021 VC CONSULT FOLLOWUP Patient: SPENCER KING Exam Date: 04/19/2022 : 1965 Gender:F Ordering : DR ANAHI MCNULTY M.D. Admission #: [id number] Family : Order #: [id number] CLICK HERE TO VIEW EXAM RADIOLOGY REPORT [...] Mcnulty MD on 04/19/2022 at 13:56 Normal [facility] VC EXT VENOUS RT LIMITEDon 0 04-19-2022 VC EXT VENOUS RT LIMITED Patient: LIZ KING Exam Date: 04/19/2022 : 1965 Gender:F Ordering : DR ANAHI MCNULTY M.D. Admission #: [id number] Family : Order #: [id number] CLICK HERE TO VIEW EXAM RADIOLOGY REPORT [...] Mcnulty MD on 04/19/2022 at 13:24 Normal [facility] VC ENDOVENOUS ABL 1ST V RTon 08-30-2022 VC ENDOVENOUS ABL 1ST V RT Patient: LIZ KING Exam Date: 04/12/2022 : 1965 Gender:F Ordering : DR ANAHI MCNULTY M.D. Admission #: [id number] Family : Order #: [id number] CLICK HERE TO VIEW EXAM RADIOLOGY REPORT [...] The total number of Joules delivered was 00527. The laser was active for 146 seconds [...] Mcnulty MD on 04/12/2022 at 13:30 Normal [facility] VC CONSULT FOLLOWUPon 2021 VC CONSULT FOLLOWUP Patient: SPENCER KING Exam Date: 03/29/2022 : 1965 Gender:F Ordering : DR ANAHI MCNULTY M.D. Admission #: [id number] Family : Order #: [id number] CLICK HERE TO VIEW EXAM RADIOLOGY REPORT [...] Bell M.D. on 03/29/2022 at 14:07 Normal [facility] VC EXT VENOUS LT LIMITEDon 0 03-29-2022 VC EXT VENOUS LT LIMITED Patient: LIZ KING ElShea Exam Date: 03/29/2022 : 1965 Gender:F Ordering : DR ANAHI MCNULTY M.D. Admission #: [id number] Family : Order #: [id number] CLICK HERE TO VIEW EXAM RADIOLOGY REPORT [...] Bell M.D. on 03/29/2022 at 14:02 Normal [facility] VC ENDOVENOUS ABL 1ST V LTon 03-22-2022 VC ENDOVENOUS ABL 1ST V LT Patient: LIZ KING Exam Date: 03/22/2022 : 1965 Gender:F Ordering : DR ANAHI MCNULTY M.D. Admission #: [id number] Family : Order #: [id number] CLICK HERE TO VIEW EXAM RADIOLOGY REPORT [...] Mcnulty MD on 03/22/2022 at 14:03 Normal [facility] VC CONSULT FOLLOWUPon 2021 VC CONSULT FOLLOWUP Patient: SPENCER KING. Exam Date: 02/25/2022 : 1965 Gender:F Ordering : DR ANAHI MCNULTY M.D. Admission #: [id number] Family : Order #: [id number] CLICK HERE TO VIEW EXAM RADIOLOGY REPORT [...] MD on 02/25/2022 at 14:12 Normal [facility] VC EXT VENOUS RT LIMITEDon 0 02-25-2022 VC EXT VENOUS RT LIMITED Patient: LIZ KING Exam Date: 02/25/2022 : 1965 Gender:F Ordering : DR ANAHI MCNULTY M.D. Admission #: [id number] Family : Order #: [id number] CLICK HERE TO VIEW EXAM RADIOLOGY REPORT [...] Mcnulty MD on 02/25/2022 at 14:03 Normal [facility] VC CONSULT FOLLOWUPon 2021 VC CONSULT FOLLOWUP Patient: SPENCER KING. Exam Date: 02/07/2022 : 1965 Gender:F Ordering : DR ANAHI MCNULTY M.D. Admission #: [id number] Family : Order #: [id number] CLICK HERE TO VIEW EXAM RADIOLOGY REPORT [...] Anahi Mcnulty MD on 02/07/2022 at 12:26 [facility] VC EXT VENOUS RT LIMITEDon 0 02-07-2022 VC EXT VENOUS RT LIMITED Patient: LIZ KING Exam Date: 02/07/2022 : 1965 Gender:F Ordering : DR ANAHI MCNULTY M.D. Admission #: [id number] Family : Order #: [id number] CLICK HERE TO VIEW EXAM RADIOLOGY REPORT [...] MD on 02/07/2022 at 12:06 Normal [facility] VC CONSULT FOLLOWUPon 2021 VC CONSULT FOLLOWUP Patient: SPENCER KING. Exam Date: 01/31/2022 : 1965 Gender:F Ordering : DR ANAHI MCNULTY M.D. Admission #: [id number] Family : Order #: [id number] CLICK HERE TO VIEW EXAM RADIOLOGY REPORT [...] Bell M.D. on 01/31/2022 at 15:59 Normal [facility] VC EXT VENOUS RT LIMITEDon 0 01-31-2022 VC EXT VENOUS RT LIMITED Patient: LIZ KING Exam Date: 01/31/2022 : 1965 Gender:F Ordering : DR ANAHI MCNULTY M.D. Admission #: [id number] Family : Order #: [id number] CLICK HERE TO VIEW EXAM RADIOLOGY REPORT [...] Bell M.D. on 01/31/2022 at 15:40 Normal [facility] VC ENDOVENOUS ABL 1ST V RTon 01-25-2022 VC ENDOVENOUS ABL 1ST V RT Patient: LIZ KING Exam Date: 01/25/2022 : 1965 Gender:F Ordering : DR ANAHI MCNULTY M.D. Admission #: [id number] Family : Order #: [id number] CLICK HERE TO VIEW EXAM RADIOLOGY REPORT [...] 36 cm from the entry 10 cm [id number] to 3 cm below the saphenofemoral junction. [...] Bell M.D. on 01/25/2022 at 14:30 Normal [facility] VC COMP CONSULTATIONon 12-23 VC COMP CONSULTATION Patient: LIZ KING Exam Date: 12/23/2021 : 1965 Gender:F Ordering : DR AYSE PRECIADO M.D. 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 The patient's symptoms are relieved by rest, [...] Mcnulty MD on 12/23/2021 at 13:56 Normal [facility] VC VENOUS REFLUX ANNA LMTon 0 12-23-2021 VC VENOUS REFLUX ANNA LMT Patient: LIZ KING Exam Date: 12/23/2021 : 1965 Gender:F Ordering : DR AYSE PRECIADO M.D. Admission #: [id number] Family : Order #: [id number] CLICK HERE TO VIEW EXAM RADIOLOGY REPORT [...] area of thrombus. Deep venous reflux visualized. 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 Dist calf [...] MD on 12/23/2021 at 12:[address] [facility] SHANIA DOP LEG LTon 05-02-20 22 [...] by: JAYY BELL Date: 2021-12-13 12:41 Normal [facility] Vital Signs Date Time Vital Sign Value Performing Clinician Giana leal 06-25-2024 13:36-0500 Body height 165.1 cm La Más Mona Work Phone: [facility] 06-25-2024 13:36-0500 Body mass index (BMI) [Ratio] 36.11 kg/m2 La Más Mona Work Phone: [facility] 06-25-2024 13:36-0500 Body weight 98.43 kg La Más Mona Work Phone: [facility] 06-25-2024 13:36-0500 Diastolic blood pressure 70 mm[Hg] La Más Mona Work Phone: [facility] 06-25-2024 13:36-0500 Systolic blood pressure 122 mm[Hg] La Más Mona Work Phone: [facility] 02-01-2024 14:32-0400 Body height 165.[address] [facility] 02-01-2024 14:32-0400 Body mass index (BMI) [Ratio] 34.6 kg/m2 [facility] 02-01-2024 14:32-0400 Body weight 94.[address] [facility] 02-01-2024 14:32-0400 Diastolic blood pressure 75 mm[Hg] [facility] 02-01-2024 14:32-0400 Heart rate 63 /min [facility] 02-01-2024 14:32-0400 Systolic blood pressure 121 mm[Hg] [facility] 01-25-2024 16:12-0400 Body weight 57 mg MD Ayse Preciado Work Phone: [facility] 11-16-2023 14:56-0400 Body height 165.1 cm MD Ayse Preciado Work Phone: [facility] 11-16-2023 14:56-0400 Body mass index (BMI) [Ratio] 34.7 kg/m2 MD Ayes Preciado Work Phone: [facility] 11-16-2023 14:56-0400 Body weight 94.51 kg MD Ayse Preciado Work Phone: [facility] 11-16-2023 14:56-0400 Diastolic blood pressure 81 mm[Hg] MD Ayse Preciado Work Phone: [facility] 11-16-2023 14:56-0400 Heart rate 70 /min MD Ayse Preciado Work Phone: [facility] 11-16-2023 14:56-0400 Systolic blood pressure 131 mm[Hg] MD Ayse Preciado Work Phone: [facility] 10-23-2023 14:13-0400 Body height 165.1 cm MD Ayse Preciado Work Phone: [facility] 10-23-2023 14:13-0400 Body mass index (BMI) [Ratio] 34.4 kg/m2 MD Ayse Preciado Work Phone: [facility] 10-23-2023 14:13-0400 Body weight 94 kg MD Ayse Preciado Work Phone: [facility] 10-23-2023 14:13-0400 Diastolic blood pressure 90 mm[Hg] MD Ayse Preciado Work Phone: [facility] 10-23-2023 14:13-0400 Heart rate 62 /min MD Ayse Preciado Work Phone: [facility] 10-23-2023 14:13-0400 Systolic blood pressure 134 mm[Hg] MD Ayse Preciado Work Phone: [facility] Encounters Encounter Date Encounter Type Care Provider Facility Start: 09-03-2024 ambulatory Gurdeep SWEENEY Facility :[facility] Start: 07-22-2024 End: 07-23-2024 Clinisync Result [...] ambulatory MD Ayse Preciado Work Phone: [facility] Work Phone: Start: 04-11-2024 End: 04-11-2024 Departed Referred MD Ayse Preciado Work Phone: [facility] Start: 04-11-2024 Non-patient / Non-visit MD Zoey Preciado Work Phone: [facility] Work Phone: Start: 02-19-2024 End: 02-19-2024 ambulatory Gurdeep SWEENEY Facility:[facility] Start: 02-19-2024 End: 02-19-2024 Patient encounter procedure Gurdeep SWEENEY [facility] Start: 02-07-2024 End: 02-07-2024 ambulatory Gurdeepsarah SWEENEY Facility:[facility] Start: 02-07-2024 End: 02-07-2024 Patient encounter procedure Gurdeep SWEENEY [facility] Start: 02-01-2024 End: 02-01-2024 ambulatory [facility] Work Phone: Start: 02-01-2024 End: 02-01-2024 Patient encounter procedure [facility] Work Phone: Start: 01-26-2024 ambulatory Gurdeep SWEENEY Facility:[facility] [place] Start: 01-25-2024 Non-patient / Non-visit [facility] Work Phone: Start: 01-25-2024 End: 01-25-2024 ambulatory Gurdeep SWEENEY Facility:CD:[id number] Start: 11-16-2023 End: 11-16-2023 ambulatory MD Ayse Preciado Work Phone: [facility] Work Phone: Start: 11-16-2023 End: 11-16-2023 Patient encounter procedure MD Ayse Preciado Work Phone: [facility] Work Phone: Start: 10-23-2023 End: 10-23-2023 ambulatory Ayse Preciado Facility:[facility] Start: 10-23-2023 End: 10-23-2023 Patient encounter procedure MD Ayse Preciado Work Phone: [facility] Work Phone: Start: 05-31-2022 End: 06-01-2022 ambulatory [...] for malign ant neoplasm of breast Mammogram [facility] Start: 08-01-2024 End: 08-01-2024 Patient encounter procedure 08/01/2024 10:50 AM EST Office Visit [facility] [address] [place] [address] Juan Antonio Flynn, DO [address] [place] [address] [facility] Start: 04-14-2024 Influenza vaccination Influenza Vacc ine (#1) [facility] Start: 02-01-2024 Patient referral [facility] Work Phone: Start: 10-23-2023 EKG 12 channel panel [facility] Start: 1995 Screening for malign ant neoplasm of cervix [facility] Start: 1986 Screening for malign ant neoplasm of cervix Pap Smear [facility] Start: 1965 Screening for malign ant neoplasm of colon [facility] Patient referral [facility] Work Phone: [facility] Payers Date Payer Category Payer Self-pay 2023 Unknown [id number] 2023 Private Health Insurance [employer] [id number] 1965 Unknown [id number] 2.0.1.479792.3.579.2. 1965 Unknown [id number] 2.840.1.963014.3.579.2. 1965 Unknown [id number] 2.840.1.440360.3.579.2. 59 1965 Unknown [id number] 2.840.1.630725.3.579.2. 59 1965 Unknown [id number] 2.840.1.564041.3.579.2. 59 1965 Unknown [id number] 2.840.1.147459.3.579.2. 59 1965 Unknown [id number] 2.840.1.123649.3.579.2. 59 1965 Unknown [id number] 2.16.840.1.148932.3.579.2. 593 1965 Unknown [id number] 2.16.840.1.177645.3.579.2. 593 1965 Unknown [id number] 2.16.840.1.103328.3.579.2. 593 1965 Unknown [id number] 2.16.840.1.682221.3.579.2. 593 1965 Unknown [id number] 2.16.840.1.332001.3.579.2. 593 1965 Unknown [id number] 2.16.840.1.395932.3.579.2. 593 1965 Unknown [id number] 2.16.840.1.457273.3.579.2. 593 1965 Unknown [id number] 2.16.840.1.246168.3.579.2. 593 1965 Unknown [id number] 2.16.840.1.687748.3.579.2. 593 1965 Unknown [id number] 2.16.840.1.428591.3.579.2. 593 1965 Unknown [id number] 2.16.840.1.807754.3.579.2. 593 1965 Unknown [id number] 2.16.840.1.978631.3.579.2. 593 1965 Unknown [id number] 2.16.840.1.485033.3.579.2. 593 1965 Unknown [id number] 2.16.840.1.545476.3.579.2. 593 1965 Unknown [id number] 2.16.840.1.729914.3.579.2. 727 1965 Unknown [id number] 2.16.840.1.958968.3.579.2. 727 1965 Unknown [id number] 2.16.840.1.282811.3.579.2. 727 1965 Unknown [id number] 2.16.840.1.473839.3.579.2. 727 1959 Unknown [id number] Unknown [id number] 2.16.840.1.456309.3.579.2. 531 Unknown [id number] 2.16.840.1.542467.3.579.2. 531 Social History Date Type Detail Facility Start: 12-16-2020 End: 10-23-2023 Tobacco smoking status NDIS Never smoked tobacco (finding) [facility] Start: 1965 Sex Assigned At Female [facility] [place] Sex Assigned At Female [facility] Tobacco smoking status [facility] Tobacco smoking consumption unknown [facility] Start: 04-18-2024 Gender identity Identifies as female gender (finding) [facility] Clinical Notes 02-01-2024 to 06-25-2024 Patricia Cervantes [...] on 07/24/[address] Flynn at [facility]. MEDICATIONS Current Outpatient Medications Medication Instructions [...] nursing note reviewed. Exam conducted with a pulp grinder present. Vitals: Estimated body mass index is [...] reviewed, and patient is to proceed to [facility] OR. Follow Up: Patient is to follow up at 1 & 6 weeks post operative to assess proper healing and recovery from procedure. Documented by Janina Garcia LPN on behalf of: Juan Antonio Flynn DO documented in this encounter [facility] 02-19-2024 Hospital Discharg e instructions Patient Education [...] Care 01/29/2024 11:42:41 With:Gurdeep SWEENEY Address: [address] Business (1) When: Unknown Comments:The stent [...] decision at any time.Have a great day. [facility] 02-19-2024 Note Patient Education Cystoscopy [...] you have a fever over 100 degrees. [facility] 02-01-2024 Hospital Discharg e instructions Ambulatory OrdersReferral to [facility] [employer] Time Frame: 02/01/24, Location: [facility] Work Phone: Evaluation + Plan note Future Appointments Appointment Date:02/12/2024 08:00:00 AM Scheduled Provider: Location:[facility] Appointment Type:Urology CALL PAT FT Appointment Date:02/19/2024 03:15:00 PM Scheduled Provider: Location:[facility] Appointment Type:Urology FT [facility] Evaluation + Plan note Future Appointments Appointment Date:09/03/2024 02:30:00 PM Scheduled Provider:Gurdeep SWEENEY MD Location:[facility] Appointment Type:URO Office Visit [facility] Evaluation note Diagnosis Onset Date Epigastric abdominal pain ac brock HTN (hypertension) [facility] Work Phone: Evaluation note* Diagnosis Onset Date Resolution Status HTN (hypertension) acute Uterine mass [facility] Work Phone: Evaluation note* Diagnosis Onset Date Resolution Status HTN (hypertension) acute Nephrolithiasis acute Uterine mass [facility] Work Phone: Evaluation note* Diagnosis Pre-op examination Enlarged uterus Hypertrophy of uterus Pelvic pain in female Unspecified symptom associated with female genital organs [facility] Narr[facility] No data available for this section [facility] Hospital Discharge instructions No data available for this section [facility] progress note No data available for this section [facility] Summary Purpose Family History Relationship Condition [...] and content) DATE CREATED AUTHOR 06/07/2022 [facility] DATE CREATED AUTHOR AUTHOR'S ORGANIZ ATION 02/27/2024 [facility] DATE CREATED AUTHOR AUTHOR'S ORGANIZ ATION 04/21/2024 [facility] Care Teams (unrecognized sec [...] November 16, 2023 End: November 16, 2023 Pelt Grader Relationship Specialty Start Date End Date Ayse Preciado MD [address] [place] [address] PCP - General Family Medicine 02/22/24 Pelt Grader Relationship Specialty Start Date End Date Ayse Preciado MD [address] [place] [id number] PCP - General Family Medicine 02/22/24 Goals [...] BE BASED ON THE PRIMARY CLINICAL RECORDS. [facility]. provides no warranty or guarantee of the accuracy or completeness of information in this document.
--- NOTE | 2024-07-26 11:55 | CM.DCFOLLOWU ---
Person spoke with:patient How are you feeling?well, no bowel movement yet, but taking stool softeners and hoping for today How is your pain? controlled Did you understand your discharge instructions?yes Do you have any questions about your discharge instructions?no Were you given any prescriptions at discharge?yes Were you able to get your prescriptions filled?yes Do you understand how to take your medications as ordered?yes Do you have any questions about your follow up appointment and do you plan to keep your follow up appointment? no questions, follow up next Is there anything else that you would like to discuss?no Questions/Comments/Concerns/Other:none
--- OUTSIDE RECORDS SUMMARY | 2024-07-26 15:17 | XMS_ITS | CCD ---
Author Organization [facility] Care Team Providers Care Winery Worker Name Role Phone HAMLET, DR ANAHI [...] DR AYSE Esposito Admitting Unavailable PRECIADO, DR YASE Esposito Attending Unavailable BALL, DR WITT Primary [...] Unavailable MD Ayse Preciado Primary Care Provider [phone] MD Ayse Preciado Attending Provider AYSE PRECIADO [...] Unavailable Ayse Preciado MD Primary Care Provider [phone] Allergies Allergy Classification Reported Allergen(s) Allergy Type Date of Onset Reaction(s) Facility Sulfonamides (antibiotic) (1 source) Sulfonamides (Antibiotic); Translations: [sulfa drugs] Drug Allergy Eruption of skin (disorder) [facility] (2 sources) Sulfamethoxazole / Trimethoprim Drug Allergy [facility] Repository (8 sources) Sulfamethoxazole; Translations: [sulfamethoxazole] Drug Allergy 11-16-19 [facility] (4 sources) Sulfonamides (Antibiotic); Translations: [Sulfa (Sulfonamide Antibiotics)] Allergy to substance 11-16-19 [facility] (8 sources) Trimethoprim; Translations: [trimethoprim] Drug Allergy 11-16-19 [facility] (2 sources) Sulfonamides (Antibiotic); Translations: [sulfa drugs] Drug allergy Eruption of skin (disorder) [facility] (4 sources) Sulfamethoxazole / Trimethoprim Drug Allergy 02-22-20 [facility] Work Phone: (4 sources) Sulfonamides [...] tab(s), Refills(s) 0, Pharmacy: [facility]/pharmacy #[id number] Start Date: 01/29/24 Status: Ordered fluticasone furoate [...] Nom (Bld) Blood group A Rh(D) negative [facility] , [facility] ALL CBC WITH AUTO DIFFon BASOPHILS ABSOLUTE AUTO 0.1 [facility] Basophils/100 WBC (Bld) 0.8 % 0.2 - 2.0 % [facility] Eosinophils/100 WBC (Bld) 2.2 % 0.9 - 7.0 % [facility] Erythrocyte distribution width (RBC) [Ratio] 12.1 % 11.0 - 15.0 % [facility] Hematocrit (Bld) [Volume fraction] 37 % 36.0 - 48.0 % [facility] Hemoglobin (Bld) [Mass/Vol] 12.8 g/dL 12.0 - 16.0 g/dL [facility] IMMATURE GRANULOCYTES ABS AUTO 0.02 [facility] Immature granulocytes/100 WBC (Bld) 0.3 % 0.0 - 0.5 % [facility] LYMPHOCYTES ABSOLUTE AUTO 1.7 [facility] Lymphocytes/100 WBC (Bld) 29.1 % 20.5 - 60.0 % [facility] MCH (RBC) [Entitic mass] 29.3 pg 26.7 - 34.0 pg [facility] MCHC (RBC) [Mass/Vol] 34.6 g/dL 29.9 - 35.2 g/dL [facility] MCV (RBC) [Entitic vol] 84.7 fL 81.0 - 99.0 fL [facility] MONOCYTES ABSOLUTE AUTO 0.5 [facility] Monocytes/100 WBC (Bld) 8.2 % 1.7 - 12.0 % [facility] NEUTROPHILS ABSOLUTE AUTO 3.6 [facility] Neutrophils/100 WBC (Bld) 59.4 % 43.0 - 75.0 % [facility] Platelet mean volume (Bld) [Entitic vol] 10.2 fL 9.5 - 13.5 fL [facility] PLT [address] [facility] RBC 4.[address] [facility] WBC 6 [facility] Basophils Auto (Bld) [#/Vol] on 04-11-2024 Basophils (Bld) [#/Vol] 0.0 10 3/uL 0.0-0.1 [facility] Basophils/100 WBC Auto (Bld) on 04-11-2024 Basophils/100 WBC (Bld) 0.8 % 0.2-2.0 [facility] Eosinophils/100 WBC Auto (Bl d)on 04-11-2024 Eosinophils/100 WBC (Bld) 3.3 % 0.9-7.0 [facility] Erythrocyte distribution wid th Auto (RBC) [Ratio]on 04-11-2024 Erythrocyte distribution width (RBC) [Ratio] 12.1 % 11.0-15.0 [facility] Hematocrit Auto (Bld) [Volum e fraction]on 04-11-2024 Hematocrit (Bld) [Volume fraction] 36.5 % 36.0-48.0 [facility] Hemoglobin [Mass/volume] in Bloodon 04-11-2024 Hemoglobin (Bld) [Mass/Vol] 13.1 g/dL 12.0-16.0 [facility] Braden 04-11-2024 L Specimen: [id number] R eceived: 04/11/24 Status: ERIC Aguirre Num: [id number] Spec Type: Surgical Subm Dr: Juan Antonio Flynn Tissues: A Cervical Polyp (CERV POLYP) B Endometrium - Curettings (ENDOM CUR) Procedures: HE/4, Gross/Micro L4/2 Age/ Patient Sex Location Account Attending Physician Liz King 59/F [facility] [id number] Juan Antonio Flynn SPEC NUM: [id number] RECD: 04/11/24 STATUS: ERIC AGUIRRE NUM: [id number] MAURY: 04/11/24- SUBM DR: Juan Antonio Flynn ENTERED: 04/11/24 [facility] DR: Maciej,Lab SPEC TYPE: Surgical DEPT: NAVYA BENJAMIN ENTERED BY: [id number] RECV BY: [id number] ORDERED: HE/4, Gross/Micro L4/2 ORDERED: HE/4, Gross/Micro [...] x 1.0 x 0.4 cm -------- Specimen: [id number] Received: 04/11/24 Status: ERIC Timothy Num: [id number] Spec Type: Surgical Subm Dr: Juan Antonio Flynn Tissues: A Cervical Polyp (CERV POLYP) B Endometrium - Curettings (ENDOM CUR) Procedures: LU/Jan Tineo/Perez L4/2 -------- Patient: Liz King [id number] (Continued) -------- Specimen: [id number] Received: 04/11/24 (Continued) Gross Description (Continued) Signed (signature on file) Floyd Ochoa MD 04/19/24 3700 -------- Specimen: [id number] Received: 04/11/24 Status: ERIC Aguirre Num: [id number] Spec Type: Surgical Subm Dr: Juan Antonio Flynn Tissues: A Cervical Polyp (CERV POLYP) B Endometrium - Curettings (ENDOM CUR) Procedures: HE/Rivka, Gross/Micro L4/2 -------- Patient: Margaret Kingyccate Gallegos [id number] (Continued) -------- Specimen: [id number] Received: 04/11/24 (Continued) Gross Description (Continued) in aggregate. The specimen is entirely submitted in cassette B1. Microscopic Description Microscopic examinations are performed supporting the above interpretation CPT Codes 93289S3 -------- -------- Specimen: [id number] Received: 04/11/24 Status: ERIC Aguirre Num: [id number] Spec Type: Surgical Subm Dr: Juan Antonio Flynn Tissues: A Cervical Polyp (CERV POLYP) B Endometrium - Curettings (ENDOM CUR) Procedures: BARRON, Jan/Micro L4/2 -------- Patient: Liz King [id number] (Continued) -------- Signed (signature on file) Floyd Ochoa MD 04/19/24 1050 Normal [facility] Laboratory - Hematology and Cell countson 04-11-2024 Immature granulocytes/100 WBC (Bld) 0.2 % 0.0-0.5 [facility] Leukocytes [#/volume] correc aubrey for nucleated erythrocytes in Blood by Automated counon 04-11-2024 WBC corrected for nucl RBC Auto (Bld) [#/Vol] 5.2 10 3/uL 4.0-11.0 [facility] Lymphocytes Auto (Bld) [#/Vo l]on 04-11-2024 Lymphocytes (Bld) [#/Vol] 1.8 10 3/uL 1.2-3.8 [facility] Lymphocytes/100 WBC Auto (Bl d)on 04-11-2024 Lymphocytes/100 WBC (Bld) 33.8 % 20.5-60.0 [facility] MCH Auto (RBC) [Entitic mass ]on 04-11-2024 MCH (RBC) [Entitic mass] 29.8 pg 26.7-34.0 [facility] MCHC Auto (RBC) [Mass/Vol]on 04-11-2024 MCHC (RBC) [Mass/Vol] 35.9 g/dL High 29.9-35.2 [facility] MCV Auto (RBC) [Entitic vol] on 04-11-2024 MCV (RBC) [Entitic vol] 83.1 fL 81.0-99.0 [facility] Monocytes Auto (Bld) [#/Vol] on 04-11-2024 Monocytes (Bld) [#/Vol] 0.5 10 3/uL 0.3-0.8 [facility] Monocytes/100 WBC Auto (Bld) on 04-11-2024 Monocytes/100 WBC (Bld) 10.0 % 1.7-12.0 [facility] Neutrophils Auto (Bld) [#/Vo l]on 04-11-2024 Neutrophils (Bld) [#/Vol] 2.7 10 3/uL 1.4-6.5 [facility] Neutrophils/100 WBC Auto (Bl d)on 04-11-2024 Neutrophils/100 WBC (Bld) 51.9 % 43.0-75.0 [facility] No Panel Informationon 04-11 Eosinophils # (Auto) 0.2 10 3/uL 0.0-0.7 [facility] Immature Granulocyte # (Auto) 0.01 10 3/uL 0.00-0.03 [facility] Platelet mean volume Auto (B ld) [Entitic vol]on 04-11-2024 Platelet mean volume (Bld) [Entitic vol] 10.0 fL 9.5-13.5 [facility] Platelets Auto (Bld) [#/Vol] on 04-11-2024 Platelets (Bld) [#/Vol] 237 10 3/uL 150-450 [facility] RBC Auto (Bld) [#/Vol]on RBC (Bld) [#/Vol] 4.39 10 6/uL 4.20-5.40 [facility] Inpatient Patient Summaryon 02-19-2024 Inpatient Patient Summary Inpatient Patient Summary [address] [address] Clinical Summary Person Information Name: LIZ KING Age: 59 Years : 1965 Sex: Female PCP: AYSE PRECIADO MD Marital Status: Race: White Ethnicity: Non- or Language: Kazakh Visit Id: Visit Reason: KIDNEY STONE Speciality: Acuity: Enc Type: Outpatient Med Service: Surgery Arrival: 02/19/2024 14:32:49 Discharge: Dispo Type: Address: [address] [place] [id number] Provider Notes: Diagnosis: Problems Active Pilar cysts [...] Gurdeep SWEENEY [address], [address], [address] [address] Business (1) Comments: The stent [...] with Stent Removal Discharge Instructions (Custom) Normal [facility] Main OR Intraoperative Recor don 02-19-2024 Main OR Intraoperative Record Main OR Intraoperative Record IntraOp Document Type FTURO Summary Primary Physician: Gurdeep SWEENEY MD Finalized Date/Time: 02/19/24 15:19:48 Pt. Name: FERNANDOLIZ/Sex: 1965 Female Med Rec #: [id number] Physician: Gurdeep SWEENEY MD Financial #: [id number] Pt. Type: O Room/Bed: / Admit/Disch: 02/19/24 [...] Kimberly A Role Performed Surgeon - Primary Roll Skinner - Primary Scrub - Primary Time In [...] 02/19/24 15:19 Ludy Dietrich 02/19/24 15:19 Normal [facility] Main OR Preoperative Recordo n 02-19-2024 Main OR Preoperative Record Main OR Preoperative Record Holding Area Document Type FTURO Summary Primary Physician: Gurdeep SWEENEY MD Finalized Date/Time: 02/19/24 14:49:34 Pt. Name: FERNANDOLIZ./Sex: 1965 Female Med Rec #: [id number] Physician: Gurdeep SWEENEY MD Financial #: [id number] Pt. Type: O Room/Bed: / Admit/Disch: 02/19/24 [...] TORREY Castelan RN, Ruthann 02/19/24 14:49 Normal [facility] Operative Reporton Operative Report Operative Report [...] urine/metabolic workup prior to that visit.. Normal [facility] Comment on above: Result Comment: Elec tronically Signed By: Gurdeep SWEENEY MD\.br\Date and Time Signed: 02/19/24 15:22 EDT Outpatient Surgery Discharge Instructionon 02-19-2024 Outpatient Surgery Discharge Instruction Outpatient Surgery Discharge Instruction [address] [address] Patient Discharge Instructions PERSON INFORMATION [...] Follow up: With: Address: When: Gurdeep SWEENEY [address] [place] [address], [address], [address] [address] Business (1) Comments: The stent [...] to serve you. Thank you for choosing [facility] Consultation Noteon 02-01-20 24 Consultation Note [id number]#1.00TIFF [facility] Insurance Correspondence Off iceon 01-30-2024 Insurance Correspondence Office [id number]#1.00TIFF [facility] Operative Reporton Operative Report [id number]#1.00TIFF [facility] Ammonium urate crystals dete ction in stone by infrared spectroscopyon 01-25-2024 Ammonium urate crystals Infrared spectroscopy Ql (Stone) TNP . [facility] Basophils Auto (Bld) [#/Vol] on 01-25-2024 Basophils (Bld) [#/Vol] 0.0 10 3/uL 0.0-0.1 [facility] Basophils/100 WBC Auto (Bld) on 01-25-2024 Basophils/100 WBC (Bld) 0.4 % 0.2-2.0 [facility] Calcium bilirubinate measure menton 01-25-2024 Calcium bilirubinate (Stone) [Mass fraction] TNP . [facility] Calcium carbonate (Stone) [M ass fraction]on 01-25-2024 Stone Calcium Carbonate TNP . [facility] Calcium hydrogen phosphate d ihydrate (Stone) [Mass fraction]on 01-25-2024 Stone Calcium Hydrogen Phosphate TNP . [facility] Calcium oxalate dihydrate cr ystals detection in stone by infrared spectroscopyon 01-25-2024 Calcium oxalate dihydrate crystals Infrared spectroscopy Ql (Stone) 40 % . [facility] Calcium oxalate monohydrate crystal detectionon 01-25-2024 Calcium oxalate monohydrate crystals Infrared spectroscopy Ql (Stone) 60 % . [facility] Calcium phosphate measuremen ton 01-25-2024 Calcium phosphate (Stone) [Mass fraction] TNP . [facility] Calculus analysis interpreta tion in stoneon 01-25-2024 Calculus analysis [Interp] TNP . [facility] Calculus analysis [Interp] Comment . [facility] Comment on above: Calculus received we t. Wet calculi must be dried beforeanalysis, which delays reporting of results. Leaving calculiwet (such as water, saline, blood, urine) may lead tochanges in composition. Physician questions regarding Calculi Analysis contactLabCorp at: [phone]. Calculus analysis with calcu katarina photography interpretation in stoneon 01-25-2024 Calculus analysis with calculus photography [Interp] Comment . [facility] Comment on above: Photograph will foll ow under a separate cover Cellular material measuremen t in stone by estimated (mass/mass)on 01-25-2024 Cellular material Est (Stone) [Mass/Mass] TNP . [facility] Cholesterol [Mass/volume] in Serum or Plasmaon 01-25-2024 Cholesterol [Mass/Vol] TNP . [facility] Composition of stoneon 01-24 Composition Nom (Stone) Comment . [facility] Comment on above: Percentage (Represen ts the % composition) Cystine measurementon 2023 Cystine (Unsp spec) [Moles/Vol] TNP . [facility] Determination of color of ca lculuson 01-25-2024 Color (Stone) Brown . [facility] Eosinophils/100 WBC Auto (Bl d)on 01-25-2024 Eosinophils/100 WBC (Bld) 1.5 % 0.9-7.0 [facility] Erythrocyte distribution wid th Auto (RBC) [Ratio]on 01-25-2024 Erythrocyte distribution width (RBC) [Ratio] 12.5 % 11.0-15.0 [facility] Estimated glomerular filtrat ion rate (GFR) non- Americanon 01-25-2024 GFR/1.73 sq M.predicted among non-blacks MDRD (S/P/Bld) [Vol rate/Area] 57 mL/min/{1.73_m2} Low >=60 [facility] Globulin Calc (S) [Mass/Vol] on 01-25-2024 Globulin (S) [Mass/Vol] 3.5 g/dL [facility] Hematocrit Auto (Bld) [Volum e fraction]on 01-25-2024 Hematocrit (Bld) [Volume fraction] 39.7 % 36.0-48.0 [facility] Hemoglobin [Mass/volume] in Bloodon 01-25-2024 Hemoglobin (Bld) [Mass/Vol] 13.6 g/dL 12.0-16.0 [facility] Laboratory - Chemistry and C hemistry - challengeon 01-25-2024 Albumin [Mass/Vol] 4.2 g/dL 3.4-5.0 [facility] ALP [Catalytic activity/Vol] 87 U/L 46-116 [facility] ALT [Catalytic activity/Vol] 42 U/L 14-59 [facility] AST [Catalytic activity/Vol] 27 U/L 15-37 [facility] Bilirubin [Mass/Vol] 0.4 mg/dL 0.2-1.0 [facility] Calcium [Mass/Vol] 9.4 mg/dL 8.5-10.1 [facility] Chloride [Moles/Vol] 105 mmol/L 98-107 [facility] CO2 [Moles/Vol] 28.5 mmol/L 21.0-32.0 [facility] Creatinine [Mass/Vol] 1.00 mg/dL 0.55-1.02 [facility] GFR/1.73 sq M.predicted MDRD (S/P/Bld) [Vol rate/Area] mL/min/{1.73_m2} >=60 [facility] Glucose [Mass/Vol] 141 mg/dL High 74-106 [facility] Potassium [Moles/Vol] 3.9 mmol/L 3.5-5.1 [facility] Protein [Mass/Vol] 7.7 g/dL 6.4-8.2 [facility] Sodium [Moles/Vol] 140 mmol/L 136-145 [facility] Urea nitrogen [Mass/Vol] 19.0 mg/dL High 7.0-18.0 [facility] Urea nitrogen/Creatinine [Mass ratio] 19.0 mg/mg [facility] Bilirubin Ql (U) Negative NEGATIVE [facility] Glucose (U) [Mass/Vol] Negative NEGATIVE [facility] Ketones Ql (U) Negative NEGATIVE [facility] pH (U) 6.0 [pH] 5.0-9.0 [facility] Specific gravity (U) [Rel density] >=1.030 Abnormal 1.005-1.025 [facility] Urobilinogen Qn (U) 0.2 {Erum'U}/dL 0.2-1.0 [facility] Laboratory - Hematology and Cell countson 01-25-2024 Immature granulocytes/100 WBC (Bld) 0.4 % 0.0-0.5 [facility] Laboratory - Specimen inform ationon 01-25-2024 Appearance (U) CLEAR CLEAR [facility] Color (U) YELLOW YELLOW [facility] Laboratory - Urinalysison Leukocyte esterase Test strip Ql (U) TRACE Abnormal NEGATIVE [facility] Mucus Ql (Urine sed) NONE SEEN NONE SEEN [facility] Nitrite Ql (U) Negative NEGATIVE [facility] Protein Ql (U) 30 mg/dL Abnormal NEG/TRACE [facility] Leukocytes [#/volume] correc aubrey for nucleated erythrocytes in Blood by Automated counon 01-25-2024 WBC corrected for nucl RBC Auto (Bld) [#/Vol] 7.5 10 3/uL 4.0-11.0 [facility] Lymphocytes Auto (Bld) [#/Vo l]on 01-25-2024 Lymphocytes (Bld) [#/Vol] 1.1 10 3/uL Low 1.2-3.8 [facility] Lymphocytes/100 WBC Auto (Bl d)on 01-25-2024 Lymphocytes/100 WBC (Bld) 14.5 % Low 20.5-60.0 [facility] MCH Auto (RBC) [Entitic mass ]on 01-25-2024 MCH (RBC) [Entitic mass] 28.8 pg 26.7-34.0 [facility] MCHC Auto (RBC) [Mass/Vol]on 01-25-2024 MCHC (RBC) [Mass/Vol] 34.3 g/dL 29.9-35.2 [facility] MCV Auto (RBC) [Entitic vol] on 01-25-2024 MCV (RBC) [Entitic vol] 83.9 fL 81.0-99.0 [facility] Measurement of proportion of calculus composed of dried blood (mass/mass)on 01-25-2024 Blood.dried (Stone) [Mass fraction] TNP . [facility] Monocytes Auto (Bld) [#/Vol] on 01-25-2024 Monocytes (Bld) [#/Vol] 0.4 10 3/uL 0.3-0.8 [facility] Monocytes/100 WBC Auto (Bld) on 01-25-2024 Monocytes/100 WBC (Bld) 5.6 % 1.7-12.0 [facility] Neutrophils Auto (Bld) [#/Vo l]on 01-25-2024 Neutrophils (Bld) [#/Vol] 5.9 10 3/uL 1.4-6.5 [facility] Neutrophils/100 WBC Auto (Bl d)on 01-25-2024 Neutrophils/100 WBC (Bld) 77.6 % High 43.0-75.0 [facility] Newberyite crystals detectio n in stone by infrared spectroscopyon 01-25-2024 Newberyite crystals Infrared spectroscopy Ql (Stone) TNP . [facility] No Panel Informationon 01-24 Stone 2,8 Dihydroxyadenine TNP . [facility] Stone Analysis Disclaimer Comment . [facility] Comment on above: Calculi report will follow via computer, mail or courierdelivery. This test was devdandy nguyen and its performance characteristicsdetermined by [employer]. It has not been cleared or approvedby the Food and Drug Administration.Performed at: [address] [id number] Director: Jessica Morales PhD, Phone: [phone] Stone Bilirubinate TNP . [facility] Stone Calcium Palmitate TNP . [facility] Stone Calcium Stearate TNP . [facility] Stone Drug or Metabolite TNP . [facility] Stone Other Constituent TNP . [facility] Stone Xanthine TNP . [facility] Eosinophils # (Auto) 0.1 10 3/uL 0.0-0.7 [facility] Immature Granulocyte # (Auto) 0.03 10 3/uL 0.00-0.03 [facility] Urine Bacteria LARGE #/HPF Abnormal NONE SEEN [facility] Urine Calcium Oxalate Crystals RARE [facility] Urine Culture Reflexed YES [facility] Urine Occult Blood LARGE Abnormal NEGATIVE [facility] Urine Other Casts NONE SEEN #/LPF NONE SEEN [facility] Urine Other Crystals Seen #/HPF Abnormal None Seen [facility] Urine RBC 20-50 #/HPF Abnormal 0-2 [facility] Urine Squamous Epithelial Cells FEW #/LPF Abnormal NONE/RARE [facility] Urine WBC 0-2 #/HPF Abnormal NONE SEEN [facility] Platelet mean volume Auto (B ld) [Entitic vol]on 01-25-2024 Platelet mean volume (Bld) [Entitic vol] 10.2 fL 9.5-13.5 [facility] Platelets Auto (Bld) [#/Vol] on 01-25-2024 Platelets (Bld) [#/Vol] 249 10 3/uL 150-450 [facility] RBC Auto (Bld) [#/Vol]on RBC (Bld) [#/Vol] 4.73 10 6/uL 4.20-5.40 [facility] Serum or plasma albumin/glob ulin mass ratioon 01-25-2024 Albumin/Globulin [Mass ratio] 1.2 {ratio} [facility] Serum or plasma anion gap de terminationon 01-25-2024 Anion gap [Moles/Vol] 10.4 mmol/L [facility] Size [Entitic volume] of Sto neon 01-25-2024 Size (Stone) [Entitic vol] 7x2 mm . [facility] Comment on above: Multiple pieces rece ived. Dimensions of the largest piecereported. Sodium urate crystals detect ion in stone by infrared spectroscopyon 01-25-2024 Sodium urate crystals Infrared spectroscopy Ql (Stone) [place] . [facility] Specimen source subject [Typ e]on 01-25-2024 Specimen source subject Nom Comment . [facility] Comment on above: Left Ureter Triamterene measurement in c alculuson 01-25-2024 Triamterene (Stone) [Mass fraction] TN . [facility] Triple phosphate/Total in St oneon 01-25-2024 Triple phosphate (Stone) [Mass fraction] TNP . [facility] Uric acid dihydrate crystals detection in stone by infrared spectroscopyon 01-25-2024 Urate dihydrate crystals Infrared spectroscopy Ql (Stone) [place] . [facility] Estimated glomerular filtrat ion rate (GFR) non- Americanon 10-23-2023 GFR/1.73 sq M.predicted among non-blacks MDRD (S/P/Bld) [Vol rate/Area] mL/min/{1.73_m2} >=60 [facility] Laboratory - Chemistry and C hemistry - challengeon 10-23-2023 Calcium [Mass/Vol] 9.4 mg/dL 8.5-10.1 [facility] Chloride [Moles/Vol] 106 mmol/L 98-107 [facility] CO2 [Moles/Vol] 29.6 mmol/L 21.0-32.0 [facility] Creatinine [Mass/Vol] 0.80 mg/dL 0.55-1.02 [facility] GFR/1.73 sq M.predicted MDRD (S/P/Bld) [Vol rate/Area] mL/min/{1.73_m2} >=60 [facility] Glucose [Mass/Vol] 81 mg/dL 74-106 [facility] Potassium [Moles/Vol] 3.8 mmol/L 3.5-5.1 [facility] Sodium [Moles/Vol] 142 mmol/L 136-145 [facility] Urea nitrogen [Mass/Vol] 17.0 mg/dL 7.0-18.0 [facility] Urea nitrogen/Creatinine [Mass ratio] 21.2 mg/mg [facility] No Panel Informationon 10-22 Troponin I High Sensitivity <4.0 pg/mL 4.0-51.3 [facility] Comment on above: CUT-OFF POINTS HAVE [...] Anion gap [Moles/Vol] 10.2 mmol/L [facility] MG MAMM SCREEN 3D ANNA CADon 05-31-2022 MG MAMM SCREEN 3D ANNA CAD Patient: LIZ KING Exam Date: 05/31/2022 : 1965 Gender:F Ordering : DR MIRYAM GUTHRIE D.O. Admission #: [id number] Family : Order #: [id number] CLICK HERE TO VIEW EXAM RADIOLOGY REPORT [...] leukemia cancer at age 80. LOCATION: [facility] BREAST COMPOSITION: Heterogeneously dense,which may [...] M.D. on 05/31/2022 at 16:00 Normal [facility] VC INJ SCL ROBERT RADIO INTERFERENCE EXPERT VEINSon 1 VC INJ SCL ROBERT RADIO INTERFERENCE EXPERT VEINS Patient: LIZ KING Exam Date: 05/23/2022 : 1965 Gender:F Ordering : DR ANAHI MCNULTY M.D. Admission #: [id number] Family : Order #: [id number] CLICK HERE TO VIEW EXAM RADIOLOGY REPORT PROCEDURE: VEIN CENTER INJECTION SCLEROSING SOLUTION MULTIPLE VEINS SAME COMPARISON: VC INJ SCL ROBERT RADIO INTERFERENCE EXPERT VEINS, 05/18/2022. INDICATIONS: Pain co-occurrent and due [...] Anahi Mcnulty MD on 05/23/2022 at 13:35 [facility] VC INJ SCL ROBERT RADIO INTERFERENCE EXPERT VEINSon 1 VC INJ SCL ROBERT RADIO INTERFERENCE EXPERT VEINS Patient: LIZ KING. Exam Date: 05/18/2022 : 1965 Gender:F Ordering : DR ANAHI MCNULTY M.D. Admission #: [id number] Family : Order #: [id number] CLICK HERE TO VIEW EXAM RADIOLOGY REPORT [...] Mcnulty MD on 05/18/2022 at 13:11 Normal [facility] VC CONSULT FOLLOWUPon 2021 VC CONSULT FOLLOWUP Patient: MARGARET KINGY MELISSA Gallegos. Exam Date: 05/13/2022 : 1965 Gender:F Ordering : DR ANAHI MCNULTY M.D. Admission #: [id number] Family : Order #: [id number] CLICK HERE TO VIEW EXAM RADIOLOGY REPORT [...] Mcnulty MD on 05/13/2022 at 12:57 Normal [facility] VC EXT VENOUS RT LIMITEDon 0 05-13-2022 VC EXT VENOUS RT LIMITED Patient: LIZ KING Exam Date: 05/13/2022 : 1965 Gender:F Ordering : DR ANAHI MCNULTY M.D. Admission #: [id number] Family : Order #: [id number] CLICK HERE TO VIEW EXAM RADIOLOGY REPORT [...] Anahi Mcnulty MD on 05/13/2022 at 12:55 [facility] VC INJ FOAM SCLERO W US MLTI on 05-09-2022 VC INJ FOAM SCLERO W US MLTI Patient: LIZ KING Exam Date: 05/09/2022 : 1965 Gender:F Ordering : DR ANAHI MCNULTY M.D. Admission #: [id number] Family : Order #: [id number] CLICK HERE TO VIEW EXAM RADIOLOGY REPORT [...] needed and (more content not included)... Normal [facility] VC CONSULT FOLLOWUPon 2021 VC CONSULT FOLLOWUP Patient: SPENCER KING Exam Date: 05/02/2022 : 1965 Gender:F Ordering : DR ANAHI MCNLUTY M.D. Admission #: [id number] Family : Order #: [id number] CLICK HERE TO VIEW EXAM RADIOLOGY REPORT [...] Bell M.D. on 05/02/2022 at 13:15 Normal [facility] VC EXT VENOUS LT LIMITEDon 0 05-02-2022 VC EXT VENOUS LT LIMITED Patient: LIZ KING. Exam Date: 05/02/2022 : 1965 Gender:F Ordering : DR ANAHI MCNULTY M.D. Admission #: [id number] Family : Order #: [id number] CLICK HERE TO VIEW EXAM RADIOLOGY REPORT [...] Bell M.D. on 05/02/2022 at 13:07 Normal [facility] VC INJ FOAM SCLERO W US MLTI on 04-26-2022 VC INJ FOAM SCLERO W US MLTI Patient: LIZ KING Exam Date: 04/26/2022 : 1965 Gender:F Ordering : DR ANAHI MCNULTY M.D. Admission #: [id number] Family : Order #: [id number] CLICK HERE TO VIEW EXAM RADIOLOGY REPORT [...] GSV, (more content not included)... Normal [facility] VC CONSULT FOLLOWUPon 2021 VC CONSULT FOLLOWUP Patient: SPENCER KING Exam Date: 04/19/2022 : 1965 Gender:F Ordering : DR ANAHI MCNULTY M.D. Admission #: [id number] Family : Order #: [id number] CLICK HERE TO VIEW EXAM RADIOLOGY REPORT [...] Mcnulty MD on 04/19/2022 at 13:56 Normal [facility] VC EXT VENOUS RT LIMITEDon 0 04-19-2022 VC EXT VENOUS RT LIMITED Patient: LIZ KING Exam Date: 04/19/2022 : 1965 Gender:F Ordering : DR ANAHI MCNULTY M.D. Admission #: [id number] Family : Order #: [id number] CLICK HERE TO VIEW EXAM RADIOLOGY REPORT [...] Mcnulty MD on 04/19/2022 at 13:24 Normal [facility] VC ENDOVENOUS ABL 1ST V RTon 08-30-2022 VC ENDOVENOUS ABL 1ST V RT Patient: LIZ KING Exam Date: 04/12/2022 : 1965 Gender:F Ordering : DR ANAHI MCNULTY M.D. Admission #: [id number] Family : Order #: [id number] CLICK HERE TO VIEW EXAM RADIOLOGY REPORT [...] The total number of Joules delivered was 69096. The laser was active for 146 seconds [...] Mcnulty MD on 04/12/2022 at 13:30 Normal [facility] VC CONSULT FOLLOWUPon 2021 VC CONSULT FOLLOWUP Patient: SPENCER KING Exam Date: 03/29/2022 : 1965 Gender:F Ordering : DR ANAHI MCNULTY M.D. Admission #: [id number] Family : Order #: [id number] CLICK HERE TO VIEW EXAM RADIOLOGY REPORT [...] Bell M.D. on 03/29/2022 at 14:07 Normal [facility] VC EXT VENOUS LT LIMITEDon 0 03-29-2022 VC EXT VENOUS LT LIMITED Patient: LIZ KING ElShea Exam Date: 03/29/2022 : 1965 Gender:F Ordering : DR ANAHI MCNULTY M.D. Admission #: [id number] Family : Order #: [id number] CLICK HERE TO VIEW EXAM RADIOLOGY REPORT [...] Bell M.D. on 03/29/2022 at 14:02 Normal [facility] VC ENDOVENOUS ABL 1ST V LTon 03-22-2022 VC ENDOVENOUS ABL 1ST V LT Patient: LIZ KING Exam Date: 03/22/2022 : 1965 Gender:F Ordering : DR ANAHI MCNULTY M.D. Admission #: [id number] Family : Order #: [id number] CLICK HERE TO VIEW EXAM RADIOLOGY REPORT [...] Mcnulty MD on 03/22/2022 at 14:03 Normal [facility] VC CONSULT FOLLOWUPon 2021 VC CONSULT FOLLOWUP Patient: SPENCER KING. Exam Date: 02/25/2022 : 1965 Gender:F Ordering : DR ANAHI MCNULTY M.D. Admission #: [id number] Family : Order #: [id number] CLICK HERE TO VIEW EXAM RADIOLOGY REPORT [...] MD on 02/25/2022 at 14:12 Normal [facility] VC EXT VENOUS RT LIMITEDon 0 02-25-2022 VC EXT VENOUS RT LIMITED Patient: LIZ KING Exam Date: 02/25/2022 : 1965 Gender:F Ordering : DR ANAHI MCNULTY M.D. Admission #: [id number] Family : Order #: [id number] CLICK HERE TO VIEW EXAM RADIOLOGY REPORT [...] Mcnulty MD on 02/25/2022 at 14:03 Normal [facility] VC CONSULT FOLLOWUPon 2021 VC CONSULT FOLLOWUP Patient: SPENCER KING. Exam Date: 02/07/2022 : 1965 Gender:F Ordering : DR ANAHI MCNULTY M.D. Admission #: [id number] Family : Order #: [id number] CLICK HERE TO VIEW EXAM RADIOLOGY REPORT [...] Anahi Mcnulty MD on 02/07/2022 at 12:26 [facility] VC EXT VENOUS RT LIMITEDon 0 02-07-2022 VC EXT VENOUS RT LIMITED Patient: LIZ KING Exam Date: 02/07/2022 : 1965 Gender:F Ordering : DR ANAHI MCNULTY M.D. Admission #: [id number] Family : Order #: [id number] CLICK HERE TO VIEW EXAM RADIOLOGY REPORT [...] MD on 02/07/2022 at 12:06 Normal [facility] VC CONSULT FOLLOWUPon 2021 VC CONSULT FOLLOWUP Patient: SPENCER KING. Exam Date: 01/31/2022 : 1965 Gender:F Ordering : DR ANAHI MCNULTY M.D. Admission #: [id number] Family : Order #: [id number] CLICK HERE TO VIEW EXAM RADIOLOGY REPORT [...] Bell M.D. on 01/31/2022 at 15:59 Normal [facility] VC EXT VENOUS RT LIMITEDon 0 01-31-2022 VC EXT VENOUS RT LIMITED Patient: LIZ KING Exam Date: 01/31/2022 : 1965 Gender:F Ordering : DR ANAHI MCNULTY M.D. Admission #: [id number] Family : Order #: [id number] CLICK HERE TO VIEW EXAM RADIOLOGY REPORT [...] Bell M.D. on 01/31/2022 at 15:40 Normal [facility] VC ENDOVENOUS ABL 1ST V RTon 01-25-2022 VC ENDOVENOUS ABL 1ST V RT Patient: LIZ KING Exam Date: 01/25/2022 : 1965 Gender:F Ordering : DR ANAHI MCNULTY M.D. Admission #: [id number] Family : Order #: [id number] CLICK HERE TO VIEW EXAM RADIOLOGY REPORT [...] 36 cm from the entry 10 cm [id number] to 3 cm below the saphenofemoral junction. [...] Bell M.D. on 01/25/2022 at 14:30 Normal [facility] VC COMP CONSULTATIONon 12-23 VC COMP CONSULTATION Patient: LIZ KING Exam Date: 12/23/2021 : 1965 Gender:F Ordering : DR AYSE PRECIADO M.D. 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 The patient's symptoms are relieved by rest, [...] Mcnulty MD on 12/23/2021 at 13:56 Normal [facility] VC VENOUS REFLUX ANNA LMTon 0 12-23-2021 VC VENOUS REFLUX ANNA LMT Patient: LIZ KING Exam Date: 12/23/2021 : 1965 Gender:F Ordering : DR AYSE PRECIADO M.D. Admission #: [id number] Family : Order #: [id number] CLICK HERE TO VIEW EXAM RADIOLOGY REPORT [...] area of thrombus. Deep venous reflux visualized. Wholesale Manager: Dist/med calf 4.2 mm, 3.8s. Dist [...] MD on 12/23/2021 at 12:48 Normal [facility] SHANIA DOP LEG LTon 05-02-20 22 [...] by: JAYY BELL Date: 2021-12-13 12:41 Normal [facility] Vital Signs Date Time Vital Sign Value Performing Clinician Giana leal 06-25-2024 13:36-0500 Body height 165.1 cm [employer] Work Phone: [facility] 06-25-2024 13:36-0500 Body mass index (BMI) [Ratio] 36.11 kg/m2 [employer] Work Phone: [facility] 06-25-2024 13:36-0500 Body weight 98.43 kg [employer] Work Phone: [facility] 06-25-2024 13:36-0500 Diastolic blood pressure 70 mm[Hg] [employer] Work Phone: [facility] 06-25-2024 13:36-0500 Systolic blood pressure 122 mm[Hg] [employer] Work Phone: [facility] 02-01-2024 14:32-0400 Body height 165.1 cm [facility] 02-01-2024 14:32-0400 Body mass index (BMI) [Ratio] 34.6 kg/m2 [facility] 02-01-2024 14:32-0400 Body weight 94.34 kg [facility] 02-01-2024 14:32-0400 Diastolic blood pressure 75 mm[Hg] [facility] 02-01-2024 14:32-0400 Heart rate 63 /min [facility] 02-01-2024 14:32-0400 Systolic blood pressure 121 mm[Hg] [facility] 01-25-2024 16:12-0400 Body weight 57 mg MD Ayse Preciado Work Phone: [facility] 11-16-2023 14:56-0400 Body height 165.1 cm MD Ayse Preciado Work Phone: [facility] 11-16-2023 14:56-0400 Body mass index (BMI) [Ratio] 34.7 kg/m2 MD Ayse Preciado Work Phone: [facility] 11-16-2023 14:56-0400 Body weight 94.51 kg MD Ayse Preciado Work Phone: [facility] 11-16-2023 14:56-0400 Diastolic blood pressure 81 mm[Hg] MD Ayse Preciado Work Phone: [facility] 11-16-2023 14:56-0400 Heart rate 70 /min MD Ayse Preciado Work Phone: [facility] 11-16-2023 14:56-0400 Systolic blood pressure 131 mm[Hg] MD Ayse Preciado Work Phone: [facility] 10-23-2023 14:13-0400 Body height 165.1 cm MD Ayse Preciado Work Phone: [facility] 10-23-2023 14:13-0400 Body mass index (BMI) [Ratio] 34.4 kg/m2 MD Ayse Preciado Work Phone: [facility] 10-23-2023 14:13-0400 Body weight 94 kg MD Ayse Preciado Work Phone: [facility] 10-23-2023 14:13-0400 Diastolic blood pressure 90 mm[Hg] MD Ayse Preciado Work Phone: [facility] 10-23-2023 14:13-0400 Heart rate 62 /min MD Ayse Preciado Work Phone: [facility] 10-23-2023 14:13-0400 Systolic blood pressure 134 mm[Hg] MD Ayse Preciado Work Phone: [facility] Encounters Encounter Date Encounter Type Care Provider Facility Start: 09-03-2024 ambulatory Gurdeep SWEENEY Facility :[facility] Start: 07-22-2024 End: 07-23-2024 Clinisync Result [...] 04-11-2024 ambulatory MD Ayse Preciado Work Phone: [facility] Work Phone: Start: 04-11-2024 End: 04-11-2024 Departed Referred MD Ayse Preciado Work Phone: [facility] Start: 04-11-2024 Non-patient / Non-visit MD Zoey Preciado Work Phone: [facility] Work Phone: Start: 02-19-2024 End: 02-19-2024 ambulatory Gurdeep SWEENEY Facility:[facility] Start: 02-19-2024 End: 02-19-2024 Patient encounter procedure Gurdeep SWEENEY [facility] Start: 02-07-2024 End: 02-07-2024 ambulatory Gurdeepsarah SWEENEY Facility:[facility] Start: 02-07-2024 End: 02-07-2024 Patient encounter procedure Gurdeep SWEENEY [facility] Start: 02-01-2024 End: 02-01-2024 ambulatory [facility] Work Phone: Start: 02-01-2024 End: 02-01-2024 Patient encounter procedure [facility] Work Phone: Start: 01-26-2024 ambulatory Gurdeep SWEENEY Facility:[facility] Start: 01-25-2024 Non-patient / Non-visit [facility] Work Phone: Start: 01-25-2024 End: 01-25-2024 ambulatory Gurdeep SWEENEY Facility:CD:[id number] Start: 11-16-2023 End: 11-16-2023 ambulatory MD Ayse Preciado Work Phone: [facility] Work Phone: Start: 11-16-2023 End: 11-16-2023 Patient encounter procedure MD Ayse Preciado Work Phone: [facility] Work Phone: Start: 10-23-2023 End: 10-23-2023 ambulatory Ayse Preciado Facility:[facility] Start: 10-23-2023 End: 10-23-2023 Patient encounter procedure MD Ayse Preciado Work Phone: [facility] Work Phone: Start: 05-31-2022 End: 06-01-2022 [...] for malign ant neoplasm of breast Mammogram [facility] Start: 08-01-2024 End: 08-01-2024 Patient encounter procedure 08/01/2024 10:50 AM EST Office Visit [facility] [address] [place] [address] Juan Antonio Flynn, DO [address] [place] [address] [facility] Start: 04-14-2024 Influenza vaccination Influenza Vacc ine (#1) [facility] Start: 02-01-2024 Patient referral [facility] Work Phone: Start: 10-23-2023 EKG 12 channel panel [facility] Start: 1995 Screening for malign ant neoplasm of cervix [facility] Start: 1986 Screening for malign ant neoplasm of cervix Pap Smear [facility] Start: 1965 Screening for malign ant neoplasm of colon [facility] Patient referral [facility] Work Phone: [facility] Payers Date Payer Category Payer Self-pay 2023 Unknown [id number] 2023 Private Health Insurance [employer] [id number] 1965 Unknown [id number] 2.0.1.920966.3.579.2. 1965 Unknown [id number] 2.840.1.750535.3.579.2. 1965 Unknown [id number] 2.840.1.772292.3.579.2. 59 1965 Unknown [id number] 2.840.1.507909.3.579.2. 59 1965 Unknown [id number] 2.840.1.670510.3.579.2. 59 1965 Unknown [id number] 2.840.1.856651.3.579.2. 59 1965 Unknown [id number] 2.840.1.191944.3.579.2. 59 1965 Unknown [id number] 2.16.840.1.642886.3.579.2. 593 1965 Unknown [id number] 2.16.840.1.661831.3.579.2. 593 1965 Unknown [id number] 2.16.840.1.060049.3.579.2. 593 1965 Unknown [id number] 2.16.840.1.475311.3.579.2. 593 1965 Unknown [id number] 2.16.840.1.560379.3.579.2. 593 1965 Unknown [id number] 2.16.840.1.177311.3.579.2. 593 1965 Unknown [id number] 2.16.840.1.119889.3.579.2. 593 1965 Unknown [id number] 2.16.840.1.560512.3.579.2. 593 1965 Unknown [id number] 2.16.840.1.846144.3.579.2. 593 1965 Unknown [id number] 2.16.840.1.293369.3.579.2. 593 1965 Unknown [id number] 2.16.840.1.482990.3.579.2. 593 1965 Unknown [id number] 2.16.840.1.751978.3.579.2. 593 1965 Unknown [id number] 2.16.840.1.802326.3.579.2. 593 1965 Unknown [id number] 2.16.840.1.345096.3.579.2. 593 1965 Unknown [id number] 2.16.840.1.723148.3.579.2. 727 1965 Unknown [id number] 2.16.840.1.493261.3.579.2. 727 1965 Unknown [id number] 2.16.840.1.625798.3.579.2. 727 1965 Unknown [id number] 2.16.840.1.025316.3.579.2. 727 1959 Unknown [id number] Unknown [id number] 2.16.840.1.880690.3.579.2. 531 Unknown [id number] 2.16.840.1.747472.3.579.2. 531 Social History Date Type Detail Facility Start: 12-16-2020 End: 10-23-2023 Tobacco smoking status SDIS Never smoked tobacco (finding) [facility] Start: 1965 Sex Assigned At Female F [facility] Sex Assigned At Female [facility] Tobacco smoking status [facility] Tobacco smoking consumption unknown [facility] Start: 04-18-2024 Gender identity Identifies as female gender (finding) [facility] Clinical Notes 02-01-2024 to 06-25-2024 Patricia [...] on 07/24/[address] Flynn at [facility]. MEDICATIONS Current Outpatient Medications Medication Instructions amLODIPine [...] nursing note reviewed. Exam conducted with a ceo & founder present. Vitals: Estimated body mass index is [...] reviewed, and patient is to proceed to [facility] OR. Follow Up: Patient is to follow up at 1 & 6 weeks post operative to assess proper healing and recovery from procedure. Documented by Janina Garcia LPN on behalf of: Juan Antonio Flynn DO documented in this encounter [facility] 02-19-2024 Hospital Discharg e instructions Patient [...] Care 01/29/2024 11:42:41 With:Gurdeep SWEENEY Address: [address] Business (1) When: Unknown Comments:The stent [...] decision at any time.Have a great day. [facility] 02-19-2024 Note Patient Education Cystoscopy with [...] you have a fever over 100 degrees. [facility] 02-01-2024 Hospital Discharg e instructions Ambulatory OrdersReferral to CARE PROVIDER Time Frame: 02/01/24, Location: [facility] Work Phone: Evaluation + Plan note Future Appointments Appointment Date:02/12/2024 08:00:00 AM Scheduled Provider: Location:[facility] Appointment Type:Urology CALL PAT FT Appointment Date:02/19/2024 03:15:00 PM Scheduled Provider: Location:[facility] Appointment Type:Urology FT [facility] Evaluation + Plan note Future Appointments Appointment Date:09/03/2024 02:30:00 PM Scheduled Provider:Gurdeep SWEENEY MD Location:[facility] Appointment Type:URO Office Visit [facility] Evaluation note Diagnosis Onset Date Epigastric abdominal pain ac brock HTN (hypertension) [facility] Work Phone: Evaluation note* Diagnosis Onset Date Resolution Status HTN (hypertension) acute Uterine mass [facility] Work Phone: Evaluation note* Diagnosis Onset Date Resolution Status HTN (hypertension) acute Nephrolithiasis acute Uterine mass [facility] Work Phone: Evaluation note* Diagnosis Pre-op examination Enlarged uterus Hypertrophy of uterus Pelvic pain in female Unspecified symptom associated with female genital organs documented [facility] Narrative No data available for this section [facility] Hospital Discharge instructions No data available for this section [facility] progress note No data available for this section [facility] Summary Purpose Family History Relationship [...] and content) DATE CREATED AUTHOR 06/07/2022 [facility] DATE CREATED AUTHOR AUTHOR'S ORGANIZ ATION 02/27/2024 [facility] DATE CREATED AUTHOR AUTHOR'S ORGANIZ ATION 04/21/2024 [facility] Care Teams (unrecognized sec tion [...] November 16, 2023 End: November 16, 2023 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 [facility]. provides no warranty or guarantee of the accuracy or completeness of information in this document.
== END 2024-07-25 13:32 | disposition home or self-care (01) | DRG 743 ==
LOC: SURGOUT 10:22 → MS 07-25 13:05 → SURGOUT 07-26 11:33 → MS 07-26 14:51 → SURGOUT 07-26 14:54 → MS 07-26 15:12
PROVIDERS: Admitting Provider Obstetrics & Gynecology; PCP Family Medicine; Visit Provider Obstetrics & Gynecology
PROC: 0UT90ZZ Resection of Uterus, Open Approach (ICD-10-PCS; principal; 2024-07-24 07:30)
DX: N85.2 Hypertrophy of uterus (principal); R10.2 Pelvic and perineal pain; I10 Essential (primary) hypertension; D25.9 Leiomyoma of uterus, unspecified; N94.10 Unspecified dyspareunia; Z53.31 Laparoscopic surgical procedure converted to open procedure; Z79.899 Other long term (current) drug therapy; Z88.2 Allergy status to sulfonamides; Z88.1 Allergy status to other antibiotic agents
CPT/HCPCS: 36415; 84702; 85025; 88307; 94667; J0131; J0690; J1100; J1171; J1650; J1885; J2250; J2405; J2704; J3010

== ENCOUNTER 2024-08-28 10:34 | Outpatient (OUT) | payer OTHER, SELFPAY ==
--- NOTE | 2024-08-28 10:45 | XR_ITS ---
[address] [address] Patient Name: TRENT BO MRN: [id number] date: 1965 Sex: F Assigned Patient [facility]: [facility] Current Patient Location: RAD Accession/Order Number: [id number] Exam Date: 08/28/2024 10:40 Report Date: 08/28/2024 13:07 At the request of: PAUL SWEENEY Procedure: XR abdomen 1V EXAMINATION: XR abdomen 1V HISTORY: Kidney Stone COMPARISON: No relevant comparison available. FINDINGS: KIDNEY/URETER - RIGHT: No visible renal or ureteral calcifications. KIDNEY/URETER - LEFT: No visible renal or ureteral calcifications. PELVIS: No visible ureteral calcifications. Any visible calcifications favor phleboliths. BOWEL: No abnormal dilation or deviation. BONES: No acute abnormality. OTHER: Negative. No abnormal gaseous collections. XR/XR abdomen 1V IMPRESSION: No urinary tract calculi observed Electronically authenticated by: ANAHI MCNULTY Date: 08/28/2024 13:07
--- OUTSIDE RECORDS SUMMARY | 2024-08-28 10:46 | XMS_ITS | CCD ---
Author Organization [facility] Care Team Providers Care Stock Shipper Name Role Phone HAMLET, DR ANAHI Reich [...] Care Provider MD Ayse Preciado Attending Provider [phone] AYSE PRECIADO Primary Care Physician [phone] Gurdeep SWEENEY Attending Unavailable ZAHRA, Gurdepe Henson Attending Unavailable Gurdeep SWEENEY Admitting Unavailable ZAHRA, Gurdeep Henson Attending Unavailable ZAHRA, Gurdeep Henson Referring Unavailable Gurdeep SWEENEY Referring Unavailable Gurdeep SWEENEY Attending Unavailable MD Ayse Preciado Primary Care Provider [phone] DO Juan Antonio Flynn Attending Provider Ayse Preciado MD Primary Care Provider Juan Antonio Flynn Admitting Unavailable Juan Antonio Flynn Attending Unavailable Ayse Preciado Primary Care Unavailable Juan Antonio Flynn Attending Unavailable Ayse Preciado Primary Care Unavailable Juan Antonio Flynn Admitting Unavailable Ayse Preciado Admitting Unavailable Ayse Preciado Primary Care Unavailable Ayse Preciado Attending Unavailable Allergies Allergy Classification Reported Allergen(s) Allergy Type Date of Onset Reaction(s) Facility Sulfonamides (antibiotic) (1 source) Sulfonamides (Antibiotic); Translations: [sulfa drugs] Drug Allergy Eruption of skin (disorder) [facility] (2 sources) Sulfamethoxazole / Trimethoprim Drug Allergy [facility] (17 sources) Sulfamethoxazole; Translations: [sulfamethoxazole] Drug Allergy 11-16-19 [facility] (4 sources) Sulfonamides (Antibiotic); Translations: [Sulfa (Sulfonamide Antibiotics)] Allergy to substance 11-16-19 [facility] (17 sources) Trimethoprim; Translations: [trimethoprim] Drug Allergy 11-16-19 [facility] (2 sources) Sulfonamides (Antibiotic); Translations: [sulfa drugs] Drug allergy Eruption of skin (disorder) [facility] (13 sources) Sulfamethoxazole / Trimethoprim Drug Allergy 02-22-20 [facility] Work Phone: (13 sources) Sulfonamides (Antibiotic) Drug Allergy 02-01-20 [facility] Work Phone: Medications Current Medications Medication Drug Class(es) Dates Sig (Normalized) Sig (Original) amLODIPine 10 mg oral tablet (20 sources) Dihydropyridine Calcium Channel Jose Start: 02-01-2024 [...] afterwards, # 2 tab(s), Refills(s) 0, Pharmacy: [facility]/pharmacy #[id number] Start Date: 01/29/24 Status: Ordered fluticasone furoate [...] Status: Start; Refills: 1; Provider: Samuel Madsen (20 sources) Angiotensin 2 Receptor Jose Start: 03-11-2024 [...] sources) Iron deficiency 11-23-2020 Episodic Other aftercare (15 sources) Surgical follow-up; Translations: [Encounter for follow-up [...] Problem Date Documented Date Episodic/Chronic Abdominal pain (20 sources) Epigastric pain; Translations: [Epigastric pain] Onset: 10-23-2023 10-23-2023 Episodic Other connective tissue disease (4 sources) Other specified soft tissue disorders; Translations: [OTHER SPEC SOFT TISSUE DISORDERS] Onset: 12-13-2021 Episodic Other female genital disorders (17 sources) Mass of uterus; Translations: [Other specified noninflammatory disorders of uterus] Onset: 02-22-2024 02-01-2024 Episodic Other female genital disorders (14 sources) Enlarged uterus; Translations: [Hypertrophy of uterus] Onset: 04-18-2024 04-18-2024 Episodic Results Test Name Value Interpretation Reference Range Facility ALL CBC WITH AUTO DIFFon BASOPHILS ABSOLUTE AUTO 0 [facility] Basophils/100 WBC (Bld) 0.1 % Low 0.2 - 2.0 % [facility] Eosinophils/100 WBC (Bld) 0 % Low 0.9 - 7.0 % [facility] Erythrocyte distribution width (RBC) [Ratio] 11.9 % 11.0 - 15.0 % [facility] Hematocrit (Bld) [Volume fraction] 34.5 % Low 36.0 - 48.0 % [facility] Hemoglobin (Bld) [Mass/Vol] 11.9 g/dL Low 12.0 - 16.0 g/dL [facility] IMMATURE GRANULOCYTES ABS AUTO 0.04 High [facility] Immature granulocytes/100 WBC (Bld) 0.3 % 0.0 - 0.5 % [facility] Interpretation and review of laboratory results Abnormal [facility] LYMPHOCYTES ABSOLUTE AUTO 1.1 Low [facility] Lymphocytes/100 WBC (Bld) 8.7 % Low 20.5 - 60.0 % [facility] MCH (RBC) [Entitic mass] 29 pg 26.7 - 34.0 pg [facility] MCHC (RBC) [Mass/Vol] 34.5 g/dL 29.9 - 35.2 g/dL [facility] MCV (RBC) [Entitic vol] 83.9 fL 81.0 - 99.0 fL [facility] MONOCYTES ABSOLUTE AUTO 1 High [facility] Monocytes/100 WBC (Bld) 7.4 % 1.7 - 12.0 % [facility] NEUTROPHILS ABSOLUTE AUTO 10.9 High [facility] Neutrophils/100 WBC (Bld) 83.5 % High 43.0 - 75.0 % [facility] Platelet mean volume (Bld) [Entitic vol] 10.3 fL 9.5 - 13.5 fL [facility] TBH EO # 0 [facility] TBH PLT 248 [facility] RBC 4.11 Low [facility] TB WBC 13 High [facility] ALL CBC WITH AUTO DIFFon BASOPHILS ABSOLUTE AUTO 0.1 [facility] Basophils/100 WBC (Bld) 0.8 % 0.2 - 2.0 % [facility] Eosinophils/100 WBC (Bld) 2.4 % 0.9 - 7.0 % [facility] Erythrocyte distribution width (RBC) [Ratio] 11.9 % 11.0 - 15.0 % [facility] Hematocrit (Bld) [Volume fraction] 39.5 % 36.0 - 48.0 % [facility] Hemoglobin (Bld) [Mass/Vol] 13.4 g/dL 12.0 - 16.0 g/dL [facility] IMMATURE GRANULOCYTES ABS AUTO 0.02 [facility] Immature granulocytes/100 WBC (Bld) 0.3 % 0.0 - 0.5 % [facility] LYMPHOCYTES ABSOLUTE AUTO 1.6 [facility] Lymphocytes/100 WBC (Bld) 26 % 20.5 - 60.0 % [facility] MCH (RBC) [Entitic mass] 28.7 pg 26.7 - 34.0 pg [facility] MCHC (RBC) [Mass/Vol] 33.9 g/dL 29.9 - 35.2 g/dL [facility] MCV (RBC) [Entitic vol] 84.6 fL 81.0 - 99.0 fL [facility] MONOCYTES ABSOLUTE AUTO 0.5 [facility] Monocytes/100 WBC (Bld) 8.8 % 1.7 - 12.0 % [facility] NEUTROPHILS ABSOLUTE AUTO 3.8 [facility] Neutrophils/100 WBC (Bld) 61.7 % 43.0 - 75.0 % [facility] Platelet mean volume (Bld) [Entitic vol] 9.8 fL 9.5 - 13.5 fL [facility] TBH EO # 0.2 [facility] TB PLT 259 [facility] RBC 4.67 [facility] WBC 6.2 [facility] Braden 07-24-2024 L -------- -------- Specimen: [id number] Received: 07/24/24 Status: ERIC Aguirre Num: [id number] Spec Type: Surgical Subm Dr: Juan Antonio Flynn Tissues: A Uterus w/ or w/o tubes ovaries except neoplastic or prolap (UTERUS,CERVIX, Procedures: , Gross/Micro L5 -------- Age/ Patient Sex Location Account Attending Physician -------- Liz King 59/F [place] [id number] Juan Antonio Flynn -------- SPEC NUM: [id number] RECD: 07/24/24 STATUS: ERIC AGUIRRE NUM: [id number] MAURY: 07/24/24-4 [facility] DR: Juan Antonio Flynn ENTERED: 07/24/[address] [facility] [address]: Maciej,Lab SPEC TYPE: Surgical DEPT: NAVYA BENJAMIN ENTERED BY: [id number] RECV BY: [id number] ORDERED: , Gross/Micro L5 ORDERED: , Gross/Micro L5 Pathological Diagnosis Cervix, uterus, bilateral tubes and ovaries, total hysterectomy with bilateral salpingo- oophorectomy: -Cervix with no significant change except the ablated squamous mucosal region -Corpus with inactive type endometrium and incidental occasional small cystic glandular dilatation without hyperplasia or atypia -Incidental focal minor adenomyosis -Several and moderate uterine leiomyomas with patchy secondary hyalinization without atypia -Bilateral fimbriated fallopian tubes without specific diagnostic findings -First described ovary with focal mild stromal hyperplasia, occasional small corpus albicans, and occasional small inclusion cysts -Second described ovary with occasional mild stromal hyperthecosis, occasional small corpus albicans, and occasional small surface inclusion cysts without atypia Clinical Information Enlarged uterus, pelvic pain Gross Description Part A is received in formalin labeled with the patients name, date of , and uterus, cervix, bilateral tubes and ovaries Is a 314 g hysterectomy specimen, which consists of a uterine corpus with detached cervix, resected with detached bilateral adnexa. The uterine corpus is globoid and asymmetrical, 5 cm cornu to cornu, 8.5 cm anterior to posterior and 7 -------- Specimen: [id number] Received: 07/24/24 Status: ERIC Aguirre Num: [id number] Spec Type: Surgical Subm Dr: Juan Antonio Flynn Tissues: A Uterus w/ or w/o tubes ovaries except neoplastic or prolap (UTERUS,CERVIX, Procedures: , Gross/Micro L5 -------- Patient: Liz King [id number] (Continued) -------- Specimen: [id number] Received: 07/24/24 (Continued) Gross Description (Continued) Signed (signature on file) Floyd Ochoa MD 07/26/24 090 -------- Specimen: [id number] Received: 07/24/24 Status: ERIC Aguirre Num: [id number] Spec Type: Surgical Subm Dr: Juan Antonio Flynn Tissues: A Uterus w/ or w/o tubes ovaries except neoplastic or prolap (UTERUS,CERVIX, Procedures: , Gross/Micro L5 -------- Patient: Margaret Kingyclit Gallegos [id number] (Continued) -------- Specimen: [id number] Received: 07/24/24 (Continued) Gross Description (Continued) cm fundus to cervical resection margin. The serosa is phoeinx-pink, smooth and glistening. The detached cervix show 0.8 cm ectocervix in length by up to 2.1 cm in diameter with a paracervical length of 3.1 cm. The ectocervical face exhibits phoenix-pink, smooth, glistening mucosa, and partially stripped with a slitlike cervical os, up to 0.8 cm in diameter. The specimen is opened to reveal a phoenix-pink, wrinkled and glistening endocervical canal. The endometrial cavity is phoenix-pink, focally erythematous, glistening and triangular, 3 x 2.5 cm with endometrium, up to 0.2 cm in thickness. The myometrium is phoenix-pink and trabecular, up to 6.5 cm in thickness. Within the myometrium are 3 well-circumscribed, 0.6, 4.5, and 5.5 cm in greatest dimension intramural nodules. The cut surfaces of the nodules are white, whirled, rubbery and uniform with no hemorrhage or degeneration identified. The bilateral adnexa are received detached, unoriented. The first fallopian tube with fimbriated distal end is 4.6 cm in length by 1 cm in diameter, and the second fallopian tube with fimbriated distal and is 4 cm in length by 1 cm in diameter. The serosa is canedlaria- pur (more content not included)... Normal [facility] ALL TYPE AND SCREENon 2023 ABO and Rh group Nom (Bld) Blood group A Rh(D) negative [facility] ALL CBC WITH AUTO DIFFon BASOPHILS ABSOLUTE AUTO 0.1 [facility] Basophils/100 WBC (Bld) 0.8 % 0.2 - 2.0 % [facility] Eosinophils/100 WBC (Bld) 2.2 % 0.9 - 7.0 % [facility] Erythrocyte distribution width (RBC) [Ratio] 12.1 % 11.0 - 15.0 % [facility] Hematocrit (Bld) [Volume fraction] 37 % 36.0 - 48.0 % [facility] Hemoglobin (Bld) [Mass/Vol] 12.8 g/dL 12.0 - 16.0 g/dL [facility] IMMATURE GRANULOCYTES ABS AUTO 0.02 [facility] Immature granulocytes/100 WBC (Bld) 0.3 % 0.0 - 0.5 % [facility] LYMPHOCYTES ABSOLUTE AUTO 1.7 [facility] Lymphocytes/100 WBC (Bld) 29.1 % 20.5 - 60.0 % [facility] MCH (RBC) [Entitic mass] 29.3 pg 26.7 - 34.0 pg [facility] MCHC (RBC) [Mass/Vol] 34.6 g/dL 29.9 - 35.2 g/dL [facility] MCV (RBC) [Entitic vol] 84.7 fL 81.0 - 99.0 fL [facility] MONOCYTES ABSOLUTE AUTO 0.5 [facility] Monocytes/100 WBC (Bld) 8.2 % 1.7 - 12.0 % [facility] NEUTROPHILS ABSOLUTE AUTO 3.6 [facility] Neutrophils/100 WBC (Bld) 59.4 % 43.0 - 75.0 % [facility] Platelet mean volume (Bld) [Entitic vol] 10.2 fL 9.5 - 13.5 fL [facility] TBH EO # 0.1 [facility] PLT 242 [facility] RBC 4.37 [facility] WBC 6 [facility] ALL CBC WITH AUTO DIFFon BASOPHILS ABSOLUTE AUTO 0.0 [facility] Basophils/100 WBC (Bld) 0.8 % 0.2 - 2.0 % [facility] Eosinophils/100 WBC (Bld) 3.3 % 0.9 - 7.0 % [facility] Erythrocyte distribution width (RBC) [Ratio] 12.1 % 11.0 - 15.0 % [facility] Hematocrit (Bld) [Volume fraction] 36.5 % 36.0 - 48.0 % [facility] Hemoglobin (Bld) [Mass/Vol] 13.1 g/dL 12.0 - 16.0 g/dL [facility] IMMATURE GRANULOCYTES ABS AUTO 0.01 [facility] Immature granulocytes/100 WBC (Bld) 0.2 % 0.0 - 0.5 % [facility] Interpretation and review of laboratory results Abnormal [facility] LYMPHOCYTES ABSOLUTE AUTO 1.8 [facility] Lymphocytes/100 WBC (Bld) 33.8 % 20.5 - 60.0 % [facility] MCH (RBC) [Entitic mass] 29.8 pg 26.7 - 34.0 pg [facility] MCHC (RBC) [Mass/Vol] 35.9 g/dL High 29.9 - 35.2 g/dL [facility] MCV (RBC) [Entitic vol] 83.1 fL 81.0 - 99.0 fL [facility] MONOCYTES ABSOLUTE AUTO 0.5 [facility] Monocytes/100 WBC (Bld) 10.0 % 1.7 - 12.0 % [facility] NEUTROPHILS ABSOLUTE AUTO 2.7 [facility] Neutrophils/100 WBC (Bld) 51.9 % 43.0 - 75.0 % [facility] Platelet mean volume (Bld) [Entitic vol] 10.0 fL 9.5 - 13.5 fL [facility] TB EO # 0.2 [facility] TB PLT 237 [facility] TB RBC 4.39 [facility] WBC 5.2 [facility] Basophils Auto (Bld) [#/Vol] on 04-11-2024 Basophils (Bld) [#/Vol] 0.0 10 3/uL 0.0-0.[address] [facility] Basophils/100 WBC Auto (Bld) on 04-11-2024 Basophils/100 WBC (Bld) 0.8 % 0.2-2.[address] [facility] Eosinophils/100 WBC Auto (Bl d)on 04-11-2024 Eosinophils/100 WBC (Bld) 3.3 % 0.9-7.[address] [facility] Erythrocyte distribution wid th Auto (RBC) [Ratio]on 04-11-2024 Erythrocyte distribution width (RBC) [Ratio] 12.1 % 11.0-15.[address] [facility] Hematocrit Auto (Bld) [Volum e fraction]on 04-11-2024 Hematocrit (Bld) [Volume fraction] 36.5 % 36.0-48.[address] [facility] Hemoglobin [Mass/volume] in Bloodon 04-11-2024 Hemoglobin (Bld) [Mass/Vol] 13.1 g/dL 12.0-16.[address] [facility] Braden 04-11-2024 L Specimen: [id number] R eceived: 04/11/24 Status: [facility] Num: [id number] Spec Type: Surgical Subm Dr: Juan Antonio Flynn Tissues: A Cervical Polyp (CERV POLYP) B Endometrium - Curettings (ENDOM CUR) Procedures: HE/4, Gross/Micro L4/2 Age/ Patient Sex Location Account Attending Physician Liz King 59/F [facility] [id number] Juan Antonio Flynn SPEC NUM: [id number] RECD: 04/11/24 STATUS: ERIC AGUIRRE NUM: [id number] MAURY: 04/11/24- SUBM DR: Juan Antonio Flynn ENTERED: 04/11/[address]: Maciej,Lab SPEC TYPE: Surgical DEPT: NAVYA BENJAMIN ENTERED BY: [id number] RECV BY: [id number] ORDERED: HE/4, Gross/Micro L4/2 ORDERED: HE/4, Gross/Micro [...] x 1.0 x 0.4 cm -------- Specimen: [id number] Received: 04/11/24 Status: ERIC Aguirre Num: [id number] Spec Type: Surgical Subm Dr: Juan Antonio Flynn Tissues: A Cervical Polyp (CERV POLYP) B Endometrium - Curettings (ENDOM CUR) Procedures: HE/4, Gross/Micro L4/2 -------- Patient: Liz King [id number] (Continued) -------- Specimen: [id number] Received: 04/11/24 (Continued) Gross Description (Continued) Signed (signature on file) lFoyd Ochoa MD 04/19/24 1050 -------- Specimen: [id number] Received: 04/11/24 Status: ERIC Aguirre Num: [id number] Spec Type: Surgical Subm Dr: Juan Antonio Flynn Tissues: A Cervical Polyp (CERV POLYP) B Endometrium - Curettings (ENDOM CUR) Procedures: Jan MART/Perez L4/2 -------- Patient: Liz King [id number] (Continued) -------- Specimen: [id number] Received: 04/11/24 (Continued) Gross Description (Continued) in aggregate. The specimen is entirely submitted in cassette B1. Microscopic Description Microscopic examinations are performed supporting the above interpretation CPT Codes 92458C1 -------- -------- Specimen: [id number] Received: 04/11/24 Status: ERIC Aguirre Num: [id number] Spec Type: Surgical Subm Dr: Juan Antonio Flynn Tissues: A Cervical Polyp (CERV POLYP) B Endometrium - Curettings (ENDOM CUR) Procedures: Jan MART/Micro L4/2 -------- Patient: Liz King [id number] (Continued) -------- Signed (signature on file) Floyd Ochoa MD 04/19/24 1050 Normal [facility] Laboratory - Hematology and Cell countson 04-11-2024 Immature granulocytes/100 WBC (Bld) 0.2 % 0.0-0.[address] [facility] Leukocytes [#/volume] correc aubrey for nucleated erythrocytes in Blood by Automated counon 04-11-2024 WBC corrected for nucl RBC Auto (Bld) [#/Vol] 5.2 10 3/uL 4.0-11.[address] [facility] Lymphocytes Auto (Bld) [#/Vo l]on 04-11-2024 Lymphocytes (Bld) [#/Vol] 1.8 10 3/uL 1.2-3.[address] [facility] Lymphocytes/100 WBC Auto (Bl d)on 04-11-2024 Lymphocytes/100 WBC (Bld) 33.8 % 20.5-60.[address] [facility] MCH Auto (RBC) [Entitic mass ]on 04-11-2024 MCH (RBC) [Entitic mass] 29.8 pg 26.7-34.[address] [facility] MCHC Auto (RBC) [Mass/Vol]on 04-11-2024 MCHC (RBC) [Mass/Vol] 35.9 g/dL High 29.9-35.[address] [facility] MCV Auto (RBC) [Entitic vol] on 04-11-2024 MCV (RBC) [Entitic vol] 83.1 fL 81.0-99.[address] [facility] Monocytes Auto (Bld) [#/Vol] on 04-11-2024 Monocytes (Bld) [#/Vol] 0.5 10 3/uL 0.3-0.[address] [facility] Monocytes/100 WBC Auto (Bld) on 04-11-2024 Monocytes/100 WBC (Bld) 10.0 % 1.7-12.[address] [facility] Neutrophils Auto (Bld) [#/Vo l]on 04-11-2024 Neutrophils (Bld) [#/Vol] 2.7 10 3/uL 1.4-6.[address] [facility] Neutrophils/100 WBC Auto (Bl d)on 04-11-2024 Neutrophils/100 WBC (Bld) 51.9 % 43.0-75.[address] [facility] No Panel Informationon 04-11 Eosinophils # (Auto) 0.2 10 3/uL 0.0-0.[address] [facility] Immature Granulocyte # (Auto) 0.01 10 3/uL 0.00-0.[address] [facility] Platelet mean volume Auto (B ld) [Entitic vol]on 04-11-2024 Platelet mean volume (Bld) [Entitic vol] 10.0 fL 9.5-13.[address] [facility] Platelets Auto (Bld) [#/Vol] on 04-11-2024 Platelets (Bld) [#/Vol] 237 10 3/uL 150-[address] [facility] RBC Auto (Bld) [#/Vol]on RBC (Bld) [#/Vol] 4.39 10 6/uL 4.20-5.40 [facility] Patient Summaryon 02-19-2024 Inpatient Patient Summary Inpatient Patient Summary [place] [id number] Clinical Summary Person Information Name: LIZ KING Age: 59 Years : 1965 Sex: Female PCP: AYSE PRECIADO MD Marital Status: Race: White Ethnicity: Non- or Language: Bengali Visit Id: Visit Reason: KIDNEY STONE Speciality: Acuity: Enc Type: Outpatient Med Service: Surgery Arrival: 02/19/2024 14:32:49 Discharge: Dispo Type: Address: [address] [place] [address] [phone] Provider Notes: Diagnosis: Problems Active Pilar cysts [...] Follow up: With: Address: When: Gurdeep SWEENEY [address] [place] [address], [address], [place] [phone] Business (1) Comments: The stent has now [...] with Stent Removal Discharge Instructions (Custom) Margaret [facility] Main OR Intraoperative Recor don 02-19-2024 Main OR Intraoperative Record Main OR Intraoperative Record IntraOp Document Type FTURO Summary Primary Physician: Gurdeep SWEENEY MD Finalized Date/Time: 02/19/24 15:19:48 Pt. Name: LIZ KING/Sex: 1965 Female Med Rec #: [id number] Physician: Gurdeep SWEENEY MD Financial #: [id number] Pt. Type: O Room/Bed: / Admit/Disch: 02/19/24 14:32:49 - Institution: Case Times FTURO Entry 1 Patient Times In Room 02/19/24 15:10:00 Out Room 02/19/24 15:19:00 Procedure Times Start 02/19/24 15:16:00 Stop 02/19/24 15:16:00 Anesthesia Times Last Modified By: Ludy Dietrich 02/19/24 15:19:36 Case Attendance FTURO Entry 1 Entry 2 Entry 3 Case Attendee ZAHRA DONNELLY, Ludy Lebron CST, Kimberly A Role Performed Surgeon - Primary Audio Video Mechanic - Primary Scrub - Primary Time In [...] Dietrich 02/19/24 15:19 Ludy Dietrich 02/19/24 15:[address] [facility] Main OR Preoperative Recordo n 02-19-2024 Main OR Preoperative Record Main OR Preoperative Record Holding Area Document Type FTURO Summary Primary Physician: Gurdeep SWEENEY MD Finalized Date/Time: 02/19/24 14:49:34 Pt. Name: LIZ KING /Sex: 1965 Female Med Rec #: [id number] Physician: Gurdeep SWEENEY MD Financial #: [id number] Pt. Type: O Room/Bed: / Admit/Disch: 02/19/24 [...] TORREY Castelan RN, Ruthann 02/19/24 14:49 Normal [facility] Operative Reporton Operative Report [...] urine/metabolic workup prior to that visit.. Normal [facility] Comment on above: Result Comment: Elec tronically Signed By: Gurdeep SWEENEY MD\.br\Date and Time Signed: 02/19/24 15:22 EDT Outpatient Surgery Discharge Instructionon 02-19-2024 Outpatient Surgery Discharge Instruction Outpatient Surgery Discharge Instruction [place] [id number] Patient Discharge Instructions PERSON INFORMATION Name: LIZ [...] Follow up: With: Address: When: Gurdeep SWEENEY [address] [place] [address], [address], [place] [phone] Business (1) Comments: The stent has now [...] you have a fever over 100 degrees. BETZY Man JOYCE F, have received the attached patient education materials/instructions and have verbalized understanding: May we do a follow up call? Yes No I was present when discharge instructions were given Patient Signature Date Clinican/Nurse Signature Date You may receive a survey from [employer] asking you to rate your care experience. Your feedback is important and will help us understand what we do well and how we can improve the quality of care we provide to you, your loved ones and our community. It?s an honor to serve you. Thank you for choosing [facility] Normal [facility] Consultation Noteon 02-01-20 24 Consultation Note [id number]#1.00TIFF Normal [facility] Insurance Correspondence Off iceon 01-30-2024 Insurance Correspondence Office [id number]#1.00TIFF Normal [facility] Operative Reporton Operative Report [id number]#1.00TIFF Normal [facility] Ammonium urate crystals dete ction in stone by infrared spectroscopyon 01-25-2024 Ammonium urate crystals Infrared spectroscopy Ql (Stone) TNP . [facility] Basophils Auto (Bld) [#/Vol] on 01-25-2024 Basophils (Bld) [#/Vol] 0.0 10 3/uL 0.0-0.[address] [facility] Basophils/100 WBC Auto (Bld) on 01-25-2024 Basophils/100 WBC (Bld) 0.4 % 0.2-2.[address] [facility] Calcium bilirubinate measure menton 01-25-2024 Calcium bilirubinate (Stone) [Mass fraction] TNP . [facility] Calcium carbonate (Stone) [M ass fraction]on 01-25-2024 Stone Calcium Carbonate TNP . [facility] Calcium hydrogen phosphate d ihydrate (Stone) [Mass fraction]on 01-25-2024 Stone Calcium Hydrogen Phosphate TNP . [facility] Calcium oxalate dihydrate cr ystals detection in stone by infrared spectroscopyon 01-25-2024 Calcium oxalate dihydrate crystals Infrared spectroscopy Ql (Stone) 40 % . [facility] Calcium oxalate monohydrate crystal detectionon 01-25-2024 Calcium oxalate monohydrate crystals Infrared spectroscopy Ql (Stone) 60 % . [facility] Calcium phosphate measuremen ton 01-25-2024 Calcium phosphate (Stone) [Mass fraction] TNP . [facility] Calculus analysis interpreta tion in stoneon 01-25-2024 Calculus analysis [Interp] TNP . [facility] Calculus analysis [Interp] Comment . [facility] Comment on above: Calculus received we t. Wet calculi must be dried beforeanalysis, which delays reporting of results. Leaving calculiwet (such as water, saline, blood, urine) may lead tochanges in composition. Physician questions regarding Calculi Analysis contactSte[facility] HospitalCo at: [phone]. Calculus analysis with calcu katarina photography interpretation in stoneon 01-25-2024 Calculus analysis with calculus photography [Interp] Comment . [facility] Comment on above: Photograph will foll ow under a separate cover Cellular material measuremen t in stone by estimated (mass/mass)on 01-25-2024 Cellular material Est (Stone) [Mass/Mass] TNP . [facility] Cholesterol [Mass/volume] in Serum or Plasmaon 01-25-2024 Cholesterol [Mass/Vol] TNP . [facility] Composition of stoneon 01-24 Composition Nom (Stone) Comment . [facility] Comment on above: Percentage (Represen ts the % composition) Cystine measurementon 2023 Cystine (Unsp spec) [Moles/Vol] TNP . [facility] Determination of color of ca lculuson 01-25-2024 Color (Stone) Brown . [facility] Eosinophils/100 WBC Auto (Bl d)on 01-25-2024 Eosinophils/100 WBC (Bld) 1.5 % 0.9-7.[address] [facility] Erythrocyte distribution wid th Auto (RBC) [Ratio]on 01-25-2024 Erythrocyte distribution width (RBC) [Ratio] 12.5 % 11.0-15.[address] [facility] Estimated glomerular filtrat ion rate (GFR) non- Americanon 01-25-2024 GFR/1.73 sq M.predicted among non-blacks MDRD (S/P/Bld) [Vol rate/Area] 57 mL/min/{1.73_m2} Low >=[address] [facility] Globulin Calc (S) [Mass/Vol] on 01-25-2024 Globulin (S) [Mass/Vol] 3.5 g/dL [facility] Hematocrit Auto (Bld) [Volum e fraction]on 01-25-2024 Hematocrit (Bld) [Volume fraction] 39.7 % 36.0-48.[address] [facility] Hemoglobin [Mass/volume] in Bloodon 01-25-2024 Hemoglobin (Bld) [Mass/Vol] 13.6 g/dL 12.0-16.[address] [facility] Laboratory - Chemistry and C hemistry - challengeon 01-25-2024 Albumin [Mass/Vol] 4.2 g/dL 3.4-5.0 [facility] ALP [Catalytic activity/Vol] 87 U/L 46-[address] [facility] ALT [Catalytic activity/Vol] 42 U/L 14-[address] [facility] AST [Catalytic activity/Vol] 27 U/L 15-[address] [facility] Bilirubin [Mass/Vol] 0.4 mg/dL 0.2-1.[address] [facility] Calcium [Mass/Vol] 9.4 mg/dL 8.5-10.1 [facility] Chloride [Moles/Vol] 105 mmol/L 98-[address] [facility] CO2 [Moles/Vol] 28.5 mmol/L 21.0-32.0 [facility] Creatinine [Mass/Vol] 1.00 mg/dL 0.55-1.[address] [facility] GFR/1.73 sq M.predicted MDRD (S/P/Bld) [Vol rate/Area] mL/min/{1.73_m2} >=[address] [facility] Glucose [Mass/Vol] 141 mg/dL High 74-106 [facility] Potassium [Moles/Vol] 3.9 mmol/L 3.5-5.[address] [facility] Protein [Mass/Vol] 7.7 g/dL 6.4-8.2 [facility] Sodium [Moles/Vol] 140 mmol/L 136-145 [facility] Urea nitrogen [Mass/Vol] 19.0 mg/dL High 7.0-18.[address] [facility] Urea nitrogen/Creatinine [Mass ratio] 19.0 mg/mg [facility] Bilirubin Ql (U) Negative NEGATIVE [facility] Glucose (U) [Mass/Vol] Negative NEGATIVE [facility] Ketones Ql (U) Negative NEGATIVE [facility] pH (U) 6.0 [pH] 5.0-9.[address] [facility] Specific gravity (U) [Rel density] >=1.030 Abnormal 1.005-1.[address] [facility] Urobilinogen Qn (U) 0.2 {Erum'U}/dL 0.2-1.[address] [facility] Laboratory - Hematology and Cell countson 01-25-2024 Immature granulocytes/100 WBC (Bld) 0.4 % 0.0-0.[address] [facility] Laboratory - Specimen inform ationon 01-25-2024 Appearance (U) CLEAR CLEAR [facility] Color (U) YELLOW YELLOW [facility] Laboratory - Urinalysison Leukocyte esterase Test strip Ql (U) TRACE Abnormal NEGATIVE [facility] Mucus Ql (Urine sed) NONE SEEN NONE SEEN [facility] Nitrite Ql (U) Negative NEGATIVE [facility] Protein Ql (U) 30 mg/dL Abnormal NEG/TRACE [facility] Leukocytes [#/volume] correc aubrey for nucleated erythrocytes in Blood by Automated counon 01-25-2024 WBC corrected for nucl RBC Auto (Bld) [#/Vol] 7.5 10 3/uL 4.0-11.[address] [facility] Lymphocytes Auto (Bld) [#/Vo l]on 01-25-2024 Lymphocytes (Bld) [#/Vol] 1.1 10 3/uL Low 1.2-3.[address] [facility] Lymphocytes/100 WBC Auto (Bl d)on 01-25-2024 Lymphocytes/100 WBC (Bld) 14.5 % Low 20.5-60.[address] [facility] MCH Auto (RBC) [Entitic mass ]on 01-25-2024 MCH (RBC) [Entitic mass] 28.8 pg 26.7-34.[address] [facility] MCHC Auto (RBC) [Mass/Vol]on 01-25-2024 MCHC (RBC) [Mass/Vol] 34.3 g/dL 29.9-35.[address] [facility] MCV Auto (RBC) [Entitic vol] on 01-25-2024 MCV (RBC) [Entitic vol] 83.9 fL 81.0-99.[address] [facility] Measurement of proportion of calculus composed of dried blood (mass/mass)on 01-25-2024 Blood.dried (Stone) [Mass fraction] TNP . [facility] Monocytes Auto (Bld) [#/Vol] on 01-25-2024 Monocytes (Bld) [#/Vol] 0.4 10 3/uL 0.3-0.[address] [facility] Monocytes/100 WBC Auto (Bld) on 01-25-2024 Monocytes/100 WBC (Bld) 5.6 % 1.7-12.[address] [facility] Neutrophils Auto (Bld) [#/Vo l]on 01-25-2024 Neutrophils (Bld) [#/Vol] 5.9 10 3/uL 1.4-6.[address] [facility] Neutrophils/100 WBC Auto (Bl d)on 01-25-2024 Neutrophils/100 WBC (Bld) 77.6 % High 43.0-75.[address] [facility] Newberyite crystals detectio n in stone by infrared spectroscopyon 01-25-2024 Newberyite crystals Infrared spectroscopy Ql (Stone) TNP . [facility] No Panel Informationon 01-24 Stone 2,8 Dihydroxyadenine TNP . [facility] Stone Analysis Disclaimer Comment . [facility] Comment on above: Calculi report will follow via computer, mail or courierdelivery. This test was geeta nguyen and its performance characteristicsdetermined by [employer]. It has not been cleared or approvedby the Food and Drug Administration.Performed at: [address] [id number] Director: Jessica Morales PhD, Phone: [phone] Stone Bilirubinate TNP . [facility] Stone Calcium Palmitate TNP . [facility] Stone Calcium Stearate TNP . [facility] Stone Drug or Metabolite TNP . [facility] Stone Other Constituent TNP . [facility] Stone Xanthine TNP . [facility] Eosinophils # (Auto) 0.1 10 3/uL 0.0-0.[address] [facility] Immature Granulocyte # (Auto) 0.03 10 3/uL 0.00-0.[address] [facility] Urine Bacteria LARGE #/HPF Abnormal NONE SEEN [facility] Urine Calcium Oxalate Crystals RARE [facility] Urine Culture Reflexed YES [facility] Urine Occult Blood LARGE Abnormal NEGATIVE [facility] Urine Other Casts NONE SEEN #/LPF NONE SEEN [facility] Urine Other Crystals Seen #/HPF Abnormal None Seen [facility] Urine RBC 20-50 #/HPF Abnormal 0-[address] [facility] Urine Squamous Epithelial Cells FEW #/LPF Abnormal NONE/RARE [facility] Urine WBC 0-2 #/HPF Abnormal NONE SEEN [facility] Platelet mean volume Auto (B ld) [Entitic vol]on 01-25-2024 Platelet mean volume (Bld) [Entitic vol] 10.2 fL 9.5-13.[address] [facility] Platelets Auto (Bld) [#/Vol] on 01-25-2024 Platelets (Bld) [#/Vol] 249 10 3/uL 150-[address] [facility] RBC Auto (Bld) [#/Vol]on RBC (Bld) [#/Vol] 4.73 10 6/uL 4.20-5.40 [facility] Serum or plasma albumin/glob ulin mass ratioon 01-25-2024 Albumin/Globulin [Mass ratio] 1.2 {ratio} [facility] Serum or plasma anion gap de terminationon 01-25-2024 Anion gap [Moles/Vol] 10.4 mmol/L [facility] Size [Entitic volume] of Sto neon 01-25-2024 Size (Stone) [Entitic vol] 7x2 mm . [facility] Comment on above: Multiple pieces rece ived. Dimensions of the largest piecereported. Sodium urate crystals detect ion in stone by infrared spectroscopyon 01-25-2024 Sodium urate crystals Infrared spectroscopy Ql (Stone) TNP . [facility] Specimen source subject [Typ e]on 01-25-2024 Specimen source subject Nom Comment . [facility] Comment on above: Left Ureter Triamterene measurement in c alculuson 01-25-2024 Triamterene (Stone) [Mass fraction] TNP . [facility] Triple phosphate/Total in St oneon 01-25-2024 Triple phosphate (Stone) [Mass fraction] TNP . [facility] Uric acid dihydrate crystals detection in stone by infrared spectroscopyon 01-25-2024 Urate dihydrate crystals Infrared spectroscopy Ql (Stone) TNP . [facility] Estimated glomerular filtrat ion rate (GFR) non- Americanon 10-23-2023 GFR/1.73 sq M.predicted among non-blacks MDRD (S/P/Bld) [Vol rate/Area] mL/min/{1.73_m2} >=[address] [facility] Laboratory - Chemistry and C hemistry - challengeon 10-23-2023 Calcium [Mass/Vol] 9.4 mg/dL 8.5-10.1 [facility] Chloride [Moles/Vol] 106 mmol/L 98-[address] [facility] CO2 [Moles/Vol] 29.6 mmol/L 21.0-32.0 [facility] Creatinine [Mass/Vol] 0.80 mg/dL 0.55-1.[address] [facility] GFR/1.73 sq M.predicted MDRD (S/P/Bld) [Vol rate/Area] mL/min/{1.73_m2} >=[address] [facility] Glucose [Mass/Vol] 81 mg/dL 74-106 [facility] Potassium [Moles/Vol] 3.8 mmol/L 3.5-5.[address] [facility] Sodium [Moles/Vol] 142 mmol/L 136-145 [facility] Urea nitrogen [Mass/Vol] 17.0 mg/dL 7.0-18.[address] [facility] Urea nitrogen/Creatinine [Mass ratio] 21.2 mg/mg [facility] No Panel Informationon 10-22 Troponin I High Sensitivity <4.0 pg/mL 4.0-51.[address] [facility] Comment on above: CUT-OFF POINTS HAVE [...] Anion gap [Moles/Vol] 10.2 mmol/L [facility] MG MAMM SCREEN 3D ANNA CADon 05-31-2022 MG MAMM SCREEN 3D ANNA CAD Patient: LIZ KING Exam Date: 05/31/2022 : 1965 Gender:F Ordering : DR MIRYAM GUTHRIE D.O. Admission #: [id number] Family : Order #: [id number] CLICK HERE TO VIEW EXAM RADIOLOGY REPORT [...] leukemia cancer at age 80. LOCATION: [facility] BREAST COMPOSITION: Heterogeneously dense,which may obscure [...] M.D. on 05/31/2022 at 16:00 Normal [facility] VC INJ SCL ROBERT ENTRY LEVEL LAB TECHNICIAN VEINSon 1 VC INJ SCL ROBERT ENTRY LEVEL LAB TECHNICIAN VEINS Patient: LIZ KING Exam Date: 05/23/2022 : 1965 Gender:F Ordering : DR ANAHI MCNULTY M.D. Admission #: [id number] Family : Order #: [id number] CLICK HERE TO VIEW EXAM RADIOLOGY REPORT PROCEDURE: VEIN CENTER INJECTION SCLEROSING SOLUTION MULTIPLE VEINS SAME COMPARISON: VC INJ SCL ROBERT ENTRY LEVEL LAB TECHNICIAN VEINS, 05/18/2022. INDICATIONS: Pain co-occurrent and due [...] Mcnulty MD on 05/23/2022 at 13:35 Normal [facility] VC INJ SCL ROBERT ENTRY LEVEL LAB TECHNICIAN VEINSon 1 VC INJ SCL ROBERT ENTRY LEVEL LAB TECHNICIAN VEINS Patient: LIZ KING Exam Date: 05/18/2022 : 1965 Gender:F Ordering : DR ANAHI MCNULTY M.D. Admission #: [id number] Family : Order #: [id number] CLICK HERE TO VIEW EXAM RADIOLOGY REPORT [...] Mcnulty MD on 05/18/2022 at 13:11 Normal [facility] VC CONSULT FOLLOWUPon 2021 VC CONSULT FOLLOWUP Patient: SPENCER KING Exam Date: 05/13/2022 : 1965 Gender:F Ordering : DR ANAHI MCNULTY M.D. Admission #: [id number] Family : Order #: [id number] CLICK HERE TO VIEW EXAM RADIOLOGY REPORT [...] MD on 05/13/2022 at 12:57 Normal [facility] VC EXT VENOUS RT LIMITEDon 0 05-13-2022 VC EXT VENOUS RT LIMITED Patient: LIZ KING Exam Date: 05/13/2022 : 1965 Gender:F Ordering : DR ANAHI MCNULTY M.D. Admission #: [id number] Family : Order #: [id number] CLICK HERE TO VIEW EXAM RADIOLOGY REPORT [...] MD on 05/13/2022 at 12:55 Normal [facility] VC INJ FOAM SCLERO W US MLTI on 05-09-2022 VC INJ FOAM SCLERO W US MLTI Patient: LIZ KING Exam Date: 05/09/2022 : 1965 Gender:F Ordering : DR ANAHI MCNULTY M.D. Admission #: [id number] Family : Order #: [id number] CLICK HERE TO VIEW EXAM RADIOLOGY REPORT [...] and (more content not included)... Normal [facility] VC CONSULT FOLLOWUPon 2021 VC CONSULT FOLLOWUP Patient: SPENCER KING. Exam Date: 05/02/2022 : 1965 Gender:F Ordering : DR ANAHI MCNULTY M.D. Admission #: [id number] Family : Order #: [id number] CLICK HERE TO VIEW EXAM RADIOLOGY REPORT [...] Bell M.D. on 05/02/2022 at 13:15 Normal [facility] VC EXT VENOUS LT LIMITEDon 0 05-02-2022 VC EXT VENOUS LT LIMITED Patient: LIZ KING Exam Date: 05/02/2022 : 1965 Gender:F Ordering : DR ANAHI MCNULTY M.D. Admission #: [id number] Family : Order #: [id number] CLICK HERE TO VIEW EXAM RADIOLOGY REPORT [...] Bell M.D. on 05/02/2022 at 13:07 Normal [facility] VC INJ FOAM SCLERO W US MLTI on 04-26-2022 VC INJ FOAM SCLERO W US MLTI Patient: LZI KING Exam Date: 04/26/2022 : 1965 Gender:F Ordering : DR ANAHI MCNULTY M.D. Admission #: [id number] Family : Order #: [id number] CLICK HERE TO VIEW EXAM RADIOLOGY REPORT [...] GSV, (more content not included)... Normal [facility] VC CONSULT FOLLOWUPon 2021 VC CONSULT FOLLOWUP Patient: SPENCER KING. Exam Date: 04/19/2022 : 1965 Gender:F Ordering : DR ANAHI MCNULTY M.D. Admission #: [id number] Family : Order #: [id number] CLICK HERE TO VIEW EXAM RADIOLOGY REPORT [...] Mcnulty MD on 04/19/2022 at 13:56 Normal [facility] VC EXT VENOUS RT LIMITEDon 0 04-19-2022 VC EXT VENOUS RT LIMITED Patient: LIZ KING Exam Date: 04/19/2022 : 1965 Gender:F Ordering : DR ANAHI MCNULTY M.D. Admission #: [id number] Family : Order #: [id number] CLICK HERE TO VIEW EXAM RADIOLOGY REPORT [...] Mcnulty MD on 04/19/2022 at 13:24 Normal [facility] VC ENDOVENOUS ABL 1ST V RTon 04-12-2022 VC ENDOVENOUS ABL 1ST V RT Patient: LIZ KING Exam Date: 04/12/2022 : 1965 Gender:F Ordering : DR ANAHI MCNULTY M.D. Admission #: [id number] Family : Order #: [id number] CLICK HERE TO VIEW EXAM RADIOLOGY REPORT [...] The total number of Joules delivered was 67243. The laser was active for 146 seconds [...] Mcnulty MD on 04/12/2022 at 13:30 Normal [facility] VC CONSULT FOLLOWUPon 2021 VC CONSULT FOLLOWUP Patient: SPENCER KING. Exam Date: 03/29/2022 : 1965 Gender:F Ordering : DR ANAHI MCNULTY M.D. Admission #: [id number] Family : Order #: [id number] CLICK HERE TO VIEW EXAM RADIOLOGY REPORT [...] Bell M.D. on 03/29/2022 at 14:07 Normal [facility] VC EXT VENOUS LT LIMITEDon 0 03-29-2022 VC EXT VENOUS LT LIMITED Patient: LIZ KING Exam Date: 03/29/2022 : 1965 Gender:F Ordering : DR ANAHI MCNULTY M.D. Admission #: [id number] Family : Order #: [id number] CLICK HERE TO VIEW EXAM RADIOLOGY REPORT [...] M.D. on 03/29/2022 at 14:02 Normal [facility] VC ENDOVENOUS ABL 1ST V LTon 03-22-2022 VC ENDOVENOUS ABL 1ST V LT Patient: LIZ KING Exam Date: 03/22/2022 : 1965 Gender:F Ordering : DR ANAHI MCNULTY M.D. Admission #: [id number] Family : Order #: [id number] CLICK HERE TO VIEW EXAM RADIOLOGY REPORT [...] Mcnulty MD on 03/22/2022 at 14:03 Normal [facility] VC CONSULT FOLLOWUPon 2021 VC CONSULT FOLLOWUP Patient: SPENCER KING ElShea Exam Date: 02/25/2022 : 1965 Gender:F Ordering : DR ANAHI MCNULTY M.D. Admission #: [id number] Family : Order #: [id number] CLICK HERE TO VIEW EXAM RADIOLOGY REPORT [...] MD on 02/25/2022 at 14:12 Normal [facility] VC EXT VENOUS RT LIMITEDon 0 02-25-2022 VC EXT VENOUS RT LIMITED Patient: LIZ KING Exam Date: 02/25/2022 : 1965 Gender:F Ordering : DR ANAHI MCNULTY M.D. Admission #: [id number] Family : Order #: [id number] CLICK HERE TO VIEW EXAM RADIOLOGY REPORT [...] Mcnulty MD on 02/25/2022 at 14:03 Normal [facility] VC CONSULT FOLLOWUPon 2021 VC CONSULT FOLLOWUP Patient: SPENCER KING. Exam Date: 02/07/2022 : 1965 Gender:F Ordering : DR ANAHI MCNULTY M.D. Admission #: [id number] Family : Order #: [id number] CLICK HERE TO VIEW EXAM RADIOLOGY REPORT [...] MD on 02/07/2022 at 12:26 Normal [facility] VC EXT VENOUS RT LIMITEDon 0 02-07-2022 VC EXT VENOUS RT LIMITED Patient: LIZ KING Exam Date: 02/07/2022 : 1965 Gender:F Ordering : DR ANAHI MCNULTY M.D. Admission #: [id number] Family : Order #: [id number] CLICK HERE TO VIEW EXAM RADIOLOGY REPORT [...] MD on 02/07/2022 at 12:06 Normal [facility] VC CONSULT FOLLOWUPon 2021 VC CONSULT FOLLOWUP Patient: SPENCER KING Exam Date: 01/31/2022 : 1965 Gender:F Ordering : DR ANAHI MCNULTY M.D. Admission #: [id number] Family : Order #: [id number] CLICK HERE TO VIEW EXAM RADIOLOGY REPORT [...] Bell M.D. on 01/31/2022 at 15:59 Normal [facility] VC EXT VENOUS RT LIMITEDon 0 01-31-2022 VC EXT VENOUS RT LIMITED Patient: LIZ KING Exam Date: 01/31/2022 : 1965 Gender:F Ordering : DR ANAHI MCNULTY M.D. Admission #: [id number] Family : Order #: [id number] CLICK HERE TO VIEW EXAM RADIOLOGY REPORT [...] Bell M.D. on 01/31/2022 at 15:40 Normal [facility] VC ENDOVENOUS ABL 1ST V RTon 01-25-2022 VC ENDOVENOUS ABL 1ST V RT Patient: LIZ KING Exam Date: 01/25/2022 : 1965 Gender:F Ordering : DR ANAHI MCNULTY M.D. Admission #: [id number] Family : Order #: [id number] CLICK HERE TO VIEW EXAM RADIOLOGY REPORT PROCEDURE: VEIN CENTER ENDOVENOUS ABLATION FIRST VEIN RIGHT COMPARISON: None. INDICATIONS: Pain co-occurrent and due to varicose veins of bilateral legs i83.813 OPERATIVE REPORT: The risks and benefits of the procedure had been previously discussed, and were rediscussed at length. Informed written consent was obtained by me and Rolando Vazquez assisted. Time out procedure was performed. The [...] 36 cm from the entry 10 cm naofl-tfp-bmlb to 3 cm below the saphenofemoral junction. [...] on 01/25/2022 at 14:30 Normal [facility] COMP CONSULTATIONon 12-23 VC COMP CONSULTATION Patient: LIZ KING Exam Date: 12/23/2021 : 1965 Gender:F Ordering : DR AYSE PRECIADO M.D. 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 The patient's symptoms are relieved by rest, [...] MD on 12/23/2021 at 13:56 Normal [facility] VC VENOUS REFLUX ANNA LMTon 0 12-23-2021 VC VENOUS REFLUX ANNA LMT Patient: LIZ KING Exam Date: 12/23/2021 : 1965 Gender:F Ordering : DR AYSE PRECIADO M.D. Admission #: [id number] Family : Order #: [id number] CLICK HERE TO VIEW EXAM RADIOLOGY REPORT [...] area of thrombus. Deep venous reflux visualized. [employer] Supervisor: Dist/med calf 4.2 mm, 3.8s. Dist calf [...] Mcnulty MD on 12/23/2021 at 12:[address] [facility] SHANIA DOP LEG LTon 12-14-19 22 [...] by: JAYY BELL Date: 2021-12-13 12:41 Normal [facility] Vital Signs Date Time Vital Sign Value Performing Clinician Giana leal 08-01-2024 11:28-0500 Body mass index (BMI) [Ratio] 35.18 kg/m2 [employer] Work Phone: [facility] 08-01-2024 11:28-0500 Body weight 95.89 kg [employer] Work Phone: [facility] 08-01-2024 11:28-0500 Diastolic blood pressure 80 mm[Hg] Juan Antonio Rina DO Work Phone: [facility] 08-01-2024 11:28-0500 Systolic blood pressure 128 mm[Hg] Juan Antonio Rina DO Work Phone: [facility] 06-25-2024 13:36-0500 Body height 165.1 cm Juan Antonio Rina DO Work Phone: [facility] 06-25-2024 13:36-0500 Body mass index (BMI) [Ratio] 36.11 kg/m2 Juan Antonio Rina DO Work Phone: [facility] 06-25-2024 13:36-0500 Body weight 98.43 kg Juan Antonio Rina DO Work Phone: [facility] 06-25-2024 13:36-0500 Diastolic blood pressure 70 mm[Hg] Juan Antonio Rina DO Work Phone: [facility] 06-25-2024 13:36-0500 Systolic blood pressure 122 mm[Hg] Juan Antonio Rina DO Work Phone: [facility] 04-18-2024 11:17-0400 Body weight 95.76 kg Juan Antonio Rina DO Work Phone: [facility] 04-18-2024 11:17-0400 Diastolic blood pressure 70 mm[Hg] Juan Antonio Rina DO Work Phone: [facility] 04-18-2024 11:17-0400 Systolic blood pressure 120 mm[Hg] Juan Antonio Rina DO Work Phone: [facility] 02-01-2024 14:32-0400 Body height 165.1 cm [facility] 02-01-2024 14:32-0400 Body mass index (BMI) [Ratio] 34.6 kg/m2 [facility] 02-01-2024 14:32-0400 Body weight 94.34 kg [facility] 02-01-2024 14:32-0400 Diastolic blood pressure 75 mm[Hg] [facility] 02-01-2024 14:32-0400 Heart rate 63 /min [facility] 02-01-2024 14:32-0400 Systolic blood pressure 121 mm[Hg] [facility] 01-25-2024 16:12-0400 Body weight 57 mg MD Ayse Preciado Work Phone: [facility] 11-16-2023 14:56-0400 Body height 165.1 cm MD Ayse Preciado Work Phone: [facility] 11-16-2023 14:56-0400 Body mass index (BMI) [Ratio] 34.7 kg/m2 MD Ayse Preciado Work Phone: [facility] 11-16-2023 14:56-0400 Body weight 94.51 kg MD Ayse Preciado Work Phone: [facility] 11-16-2023 14:56-0400 Diastolic blood pressure 81 mm[Hg] MD Ayse Preciado Work Phone: [facility] 11-16-2023 14:56-0400 Heart rate 70 /min MD Ayse Preciado Work Phone: [facility] 11-16-2023 14:56-0400 Systolic blood pressure 131 mm[Hg] MD Ayse Preciado Work Phone: [facility] 10-23-2023 14:13-0400 Body height 165.1 cm MD Ayse Preciado Work Phone: [facility] 10-23-2023 14:13-0400 Body mass index (BMI) [Ratio] 34.4 kg/m2 MD Ayse Preciado Work Phone: [facility] 10-23-2023 14:13-0400 Body weight 94 kg MD Ayse Preciado Work Phone: [facility] 10-23-2023 14:13-0400 Diastolic blood pressure 90 mm[Hg] MD Ayse Preciado Work Phone: [facility] 10-23-2023 14:13-0400 Heart rate 62 /min MD Ayse Preciado Work Phone: [facility] 10-23-2023 14:13040 Systolic blood pressure 134 mm[Hg] MD Ayse Preciado Work Phone: [facility] Encounters Encounter Date Encounter Type Care Provider Facility Start: 09-03-2024 ambulatory Gurdeep SWEENEY Facility :[facility] Start: 08-01-2024 End: 08-01-2024 Bamboo flowsheet Juan Antonio Rina DO Work Phone: [facility] Start: 08-01-2024 End: 08-01-2024 Bamboo flowsheet Juan Antonio Rina DO Work Phone: [facility] Start: 08-01-2024 End: 08-01-2024 Postop follow up visit related to original px Juan Antonio Rina DO Work Phone: [facility] Comment on above: Postoperative examin ation Start: 07-25-2024 End: 07-25-2024 Clinisync Result Encounter Juan Antonio Rina DO Work Phone: [facility] Unsolicited Start: 07-25-2024 End: 07-25-2024 Clinisync Result Encounter Juan Antonio Rina DO Work Phone: [facility] Unsolicited Start: 07-24-2024 End: 07-24-2024 Clinisync Result Encounter Juan Antonio Rina DO Work Phone: [facility] Unsolicited Start: 07-24-2024 End: 07-24-2024 Clinisync Result Encounter Juan Antonio Rina DO Work Phone: [facility] Unsolicited Start: 07-24-2024 End: 07-24-2024 ambulatory Juan Antonio Rina Facility:[facility] Start: 07-22-2024 End: 07-23-2024 Clinisync Result Encounter Juan Antonio Rina DO Work Phone: [facility] Unsolicited Start: 07-22-2024 End: 07-23-2024 Clinisync Result Encounter Juan Antonio Rina DO Work Phone: [facility] External Department Unsolicited Start: 07-08-2024 End: 07-08-2024 Clinisync Result Encounter Juan Antonio Rina DO Work Phone: [facility] Unsolicited Start: 07-08-2024 End: 07-08-2024 Clinisync Result Encounter Juan Antonio Rina DO Work Phone: [facility] External Department Unsolicited Start: 06-25-2024 End: 06-25-2024 Bamboo flowsheet Juan Antonio Rina DO Work Phone: [facility] Start: 06-25-2024 End: 06-25-2024 Bamboo flowsheet Juan Antonio Rina DO Work Phone: [facility] Start: 06-25-2024 End: 06-25-2024 Office outpatient visit 15 minutes Juan Antonio Rina DO Work Phone: [facility] Comment on above: Pre-op examination; Enlarged uterus; Pelvic pain in female Start: 06-25-2024 End: 06-25-2024 Preprocedural examination done Juan Antonio Rina DO Work Phone: [facility] Start: 04-18-2024 End: 04-18-2024 Bamboo flowsheet Juan Antonio Rina DO Work Phone: [facility] Start: 04-18-2024 End: 04-18-2024 Bamboo flowsheet Juan Antonio Rina DO Work Phone: [facility] Start: 04-18-2024 End: 04-18-2024 Postop follow up visit related to original px Juan Antonio Rina DO Work Phone: [facility] Comment on above: Postoperative examin ation; Pelvic pain in female; Uterine mass; Bulky or enlarged uterus; Pelvic pressure in female Start: 04-11-2024 End: 04-11-2024 Clinisync Result Encounter Juan Antonio Rina DO Work Phone: [facility] Unsolicited Start: 04-11-2024 End: 04-11-2024 Clinisync Result Encounter Juan Antonio Flynn DO Work Phone: [facility] Unsolicited Start: 04-11-2024 End: 04-11-2024 ambulatory MD Ayse Preciado Work Phone: [facility] Work Phone: Start: 04-11-2024 End: 04-11-2024 Departed Referred MD Ayse Preciado Work Phone: [facility] Start: 04-11-2024 Non-patient / Non-visit MD Zoey Preciado Work Phone: [facility] [place] Work Phone: Start: 02-19-2024 End: 02-19-2024 ambulatory Gurdeep SWEENEY Facility:[facility] Start: 02-19-2024 End: 02-19-2024 Patient encounter procedure Gurdeep SWEENEY [facility] Start: 02-07-2024 End: 02-07-2024 ambulatory Gurdeep SWEENEY Facility:[facility] Start: 02-07-2024 End: 02-07-2024 Patient encounter procedure Gurdeep SWEENEY [facility] Start: 02-01-2024 End: 02-01-2024 ambulatory [facility] Work Phone: Start: 02-01-2024 End: 02-01-2024 Patient encounter procedure [facility] Work Phone: Start: 01-26-2024 ambulatory Gurdeep SWEENEY Facility:[facility] Start: 01-25-2024 Non-patient / Non-visit [facility] [place] Work Phone: Start: 01-25-2024 End: 01-25-2024 ambulatory Gurdeep SWEENEY Facility:CD:[id number] Start: 11-16-2023 End: 11-16-2023 ambulatory MD Ayse Preciado Work Phone: [facility] Work Phone: Start: 11-16-2023 End: 11-16-2023 Patient encounter procedure MD Ayse Preciado Work Phone: [facility] Work Phone: Start: 10-23-2023 End: 10-23-2023 ambulatory Ayse Preciado Facility:[facility] Start: 10-23-2023 End: 10-23-2023 Patient encounter procedure MD Ayse Preciado Work Phone: [facility] Work Phone: Start: 05-31-2022 End: 06-01-2022 [...] Date Procedure Procedure Detail Performing Clinician Start: 07-25-2024 ALL CBC WITH AUTO DIFF Juan Antonio Rina DO Work Phone: Start: 07-24-2024 ALL CBC WITH AUTO DIFF Juan Antonio Rina DO Work Phone: Start: 07-22-2024 Antibody screen Juan Antonio F azio DO Work Phone: Start: 07-22-2024 ALL TYPE AND SCREEN Cor ey Rina DO Work Phone: Start: 07-08-2024 ALL CBC WITH AUTO DIFF Juan Antonio Rina DO Work Phone: Start: 06-04-2024 Mammography Juan Antonio Fazi o DO Work Phone: Start: 04-11-2024 ALL CBC WITH AUTO DIFF Juan Antonio Rina DO Work Phone: Bilateral tubal ligation Tyshawn SWEENEY section Gurdeep Spaulding Excision of thyroglo ssal duct cyst Gurdeep SWEENEY Lithotripsy Gurdeep SWEENYE Plan of Treatment Date Care Activity Detail Author Start: 06-04-2025 Screening for malign ant neoplasm of breast Mammogram [facility] Start: 09-03-2024 End: 09-03-2024 Patient encounter procedure 09/03/2024 8:40 AM EST Office Visit [facility] [address] [place] [place] [id number] Juan Antonio Flynn, DO [address] [place] [address] [facility] Start: 08-01-2024 End: 08-01-2024 Patient encounter procedure 08/01/2024 10:50 AM EST Office Visit [facility] [address] [place] [place] [phone] Juan Antonio Flynn, DO [address] [place] [address] [facility] Start: 06-25-2024 End: 06-25-2024 Patient encounter procedure 06/25/2024 1:10 PM EST Consult [facility] [address] [place] [place] [id number] Juan Antonio Flynn, DO [address] [place], [place] [id number] [facility] Start: 04-14-2024 Influenza vaccination Influenza Vacc ine (#1) [facility] Start: 02-01-2024 Patient referral [facility] Work Phone: Start: 10-23-2023 EKG 12 channel panel [facility] Start: 2005 Screening for malign ant neoplasm of breast Mammogram [facility] Start: 1995 Screening for malign ant neoplasm of cervix [facility] Start: 1986 Screening for malign ant neoplasm of cervix Pap Smear [facility] Start: 1965 Screening for malign ant neoplasm of colon [facility] Patient referral [facility] Work Phone: [facility] Payers Date Payer Category Payer Self-pay 2023 Unknown [id number] 2023 Private Health Insurance [employer] [id number] 2023 Unknown [employer] [id number] 2023-Present [address] [place] [address] [id number] 1965 Unknown [id number] 2.16840.1.726927.3.579.2. 593 1965 Unknown [id number] 2.16.840.1.072260.3.579.2. 593 1965 Unknown [id number] 2.16840.1.445775.3.579.2. 593 1965 Unknown [id number] 2.16840.1.658812.3.579.2. 593 1965 Unknown [id number] 2.16.840.1.804157.3.579.2. 593 1965 Unknown [id number] 2.16.840.1.285014.3.579.2. 593 1965 Unknown [id number] 2.16.840.1.877871.3.579.2. 593 1965 Unknown [id number] 2.16.840.1.835400.3.579.2. 593 1965 Unknown [id number] 2.16.840.1.802699.3.579.2. 593 1965 Unknown [id number] 2.16.840.1.148424.3.579.2. 593 1965 Unknown [id number] 2.16.840.1.537700.3.579.2. 593 1965 Unknown [id number] 2.16.840.1.888765.3.579.2. 593 1965 Unknown [id number] 2.16.840.1.894482.3.579.2. 593 1965 Unknown [id number] 2.16.840.1.037445.3.579.2. 593 1965 Unknown [id number] 2.16.840.1.473814.3.579.2. 593 1965 Unknown [id number] 2.16.840.1.274871.3.579.2. 593 1965 Unknown [id number] 2.16.840.1.530681.3.579.2. 593 1965 Unknown [id number] 2.16.840.1.118271.3.579.2. 593 1965 Unknown [id number] 2.16.840.1.520869.3.579.2. 593 1965 Unknown [id number] 2.16.840.1.302862.3.579.2. 593 1965 Unknown [id number] 2.16.840.1.262343.3.579.2. 593 1965 Unknown [id number] 2.16.840.1.416314.3.579.2. 727 1965 Unknown [id number] 2.16.840.1.882682.3.579.2. 727 1965 Unknown [id number] 2.16.840.1.282857.3.579.2. 727 1965 Unknown [id number] 2.16.840.1.370038.3.579.2. 727 1959 Unknown [id number] Unknown [id number] 2.16.840.1.302297.3.579.2. 531 Unknown [id number] 2.16.840.1.224386.3.579.2. 531 Unknown [id number] 2.16.840.1.162803.3.579.2. 531 Social History Date Type Detail Facility Start: 12-16-2020 End: 10-23-2023 Tobacco smoking status GAIS Never smoked tobacco (finding) [facility] Start: 1965 Sex Assigned At Female F [facility] Sex Assigned At Female [facility] Tobacco smoking status [facility] Tobacco smoking consumption unknown [facility] Start: 04-18-2024 Gender identity Identifies as female gender (finding) [facility] Start: 1965 Sex assigned at Not on file [facility] Clinical Notes 02-01-2024 to 08-01-2024 Oneida Pena LPN - 08/01/2024 10:50 AM Mariah Cervantes - 06/25/2024 1:10 PM Shamika Pena LPN - 04/18/2024 10:20 AM EDT Note Date & Type Note Facility 08-01-2024 History of Presen t illness Narrative Reason for Appointment: Patient ID: Liz King is a 59 y.o. female who presents for Post-op Visit Patient presents today for 1 Week Post Op Follow Up appointment. MEDICATIONS Current Outpatient Medications Medication Instructions amLODIPine (NORVASC) 10 mg, Daily losartan (COZAAR) 50 mg, Daily ALLERGIES Allergies Allergen Reactions Bactrim [Sulfamethoxazole-Trimethoprim [...] 2 DILATION AND CURETTAGE OF UTERUS 04/11/2024 HYSTERECTOMY 07/24/2024 HYSTEROSCOPY 04/11/2024 LAPAROSCOPY DIAGNOSTIC / BIOPSY / ASPIRATION / LYSIS Bilateral 04/11/2024 REVIEW OF SYSTEMS Review of Systems: Review of Systems All other systems reviewed and are negative. OBJECTIVE Objective: Physical Exam Constitutional: Appearance: Normal [...] nursing note reviewed. Exam conducted with a acquisition cost estimator present. Vitals: Estimated body mass index is 35.18 kg/m as calculated from the following: Height as of 24: 5' 5 . Weight as of this encounter: 211 lb 6.4 oz. BP: 128/80 No LMP recorded. Patient has had a hysterectomy. ASSESSMENT & PLAN ICD-10-CM 1. Postoperative examination Z09 Patient presents today for post operative visit 1 week from [facility]. Incision is healing well and patient voiced she is feeling better each day. Patient to return to clinic in 5 weeks for 6 week post op appointment. Discussed surgery and finding in detail with patient and spouse. Documented by Oneida Pena LPN on behalf of: Juan Antonio Flynn DO documented in this encounter [facility] 06-25-2024 History of Presen t illness Narrative Reason for Appointment: Patient ID: Liz King is a 59 y.o. female who presents for Pre-op Visit Patient presents today for Pre Op appointment. Patient is scheduled to undergo Total Abdominal Hysterectomy, possible BSO, possible cystoscopy on 07/24/[address] Flynn at [facility]. MEDICATIONS Current Outpatient Medications Medication Instructions [...] nursing note reviewed. Exam conducted with a acquisition cost estimator present. Vitals: Estimated body mass index is [...] reviewed, and patient is to proceed to [facility] OR. Follow Up: Patient is to follow up at 1 & 6 weeks post operative to assess proper healing and recovery from procedure. Documented by Janina Garcia LPN on behalf of: Juan Antonio Flynn DO documented in this encounter [facility] 04-18-2024 History of Presen t illness Narrative Reason for Appointment: Patient ID: Liz King is a 59 y.o. female who presents for Post-op Visit Patient presents today for Follow up appointment to discuss results. MEDICATIONS Current Outpatient Medications Medication Instructions amLODIPine (NORVASC) 10 mg, Oral, Daily losartan (COZAAR) 50 mg, Oral, Daily ALLERGIES Allergies Allergen Reactions Bactrim [Sulfamethoxazole-Trimethoprim ] Sulfamethoxazole Other Reaction(s): Hives Trimethoprim Other Reaction(s): Hives Sulfa Antibiotics Rash Other Reaction(s): Hives PROBLEMS Active Ambulatory Problems Diagnosis Date Noted Uterine mass 02/22/2024 Resolved Ambulatory Problems Diagnosis Date Noted No [...] Respiratory: Negative. Cardiovascular: Negative. Gastrointestinal: Negative. Genitourinary: Negative. Musculoskeletal: Negative. Skin: Negative. Neurological: Negative. All [...] nursing note reviewed. Exam conducted with a acquisition cost estimator present. Vitals: There is no height or weight on file to calculate BMI. BP: 120/70 No LMP recorded. ASSESSMENT & PLAN ICD-10-CM 1. Postoperative examination Z09 Patient presents today for post operative appointment. Discussed results with patient in regards to Dx Lap that was done and went over pictures as well and explained plan of care to patient. Recommended patient have abdominal hysterectomy. Discussed bladder issues after surgery and that bladder would be tacked during abdominal hysterectomy. Patient to setup date for Abdominal hysterectomy prior to leaving office today. Documented by Oneida Pena LPN on behalf of: Juan Antonio Flynn DO documented in this encounter [facility] 02-19-2024 Hospital Discharg e instructions Patient [...] Care 01/29/2024 11:42:41 With:Gurdeep SWEENEY Address: [address] [place] [address] Business (1) When: Unknown Comments:The stent has [...] decision at any time.Have a great day. [facility] 02-19-2024 Note Patient Education Cystoscopy with Stent [...] you have a fever over 100 degrees. [facility] 02-01-2024 Hospital Discharg e instructions Ambulatory OrdersReferral to AUTOMATIC CHIEF Time Frame: 02/01/24, Location: [facility] Work Phone: Evaluation + Plan note Future Appointments Appointment Date:02/12/2024 08:00:00 AM Scheduled Provider: Location:[facility] Appointment Type:Urology CALL PAT FT Appointment Date:02/19/2024 03:15:00 PM Scheduled Provider: Location:[facility] Appointment Type:Urology FT [facility] Evaluation + Plan note Future Appointments Appointment Date:09/03/2024 02:30:00 PM Scheduled Provider:Gurdeep SWEENEY MD Location:[facility] Appointment Type:URO Office Visit [facility] Evaluation note Diagnosis Onset Date Epigastric abdominal pain ac [place] HTN (hypertension) [facility] Work Phone: Evaluation note* Diagnosis Onset Date Resolution Status HTN (hypertension) acute Uterine mass [facility] Work Phone: Evaluation note* Diagnosis Onset Date Resolution Status HTN (hypertension) acute Nephrolithiasis acute Uterine mass [facility] Work Phone: Evaluation note* Diagnosis Pre-op examination Enlarged uterus Hypertrophy of uterus Pelvic pain in female Unspecified symptom associated with female genital organs [facility] Postoperative examination Follow-up examination, following unspecified surgery Pelvic pain in female Unspecified symptom associated with female genital organs Uterine mass Other specified symptom associated with female genital organs Bulky or enlarged uterus Hypertrophy of uterus Pelvic pressure in female [facility] Diagnosis Postoperative examination Follow-up examination, following unspecified surgery [facility] Narrative No data available for this section [facility] Hospital Discharge instructions No data available for this section [facility] progress note No data available for this section [facility] Summary Purpose Family History Relationship Condition Age [...] Date/ Time Advance Directives No October 22 024 2:05pm Chief Complaint and Reason for Visit [...] and content) DATE CREATED AUTHOR 06/07/2022 [facility] DATE CREATED AUTHOR AUTHOR'S ORGANIZ ATION 02/27/2024 [facility] DATE CREATED AUTHOR AUTHOR'S ORGANIZ ATION 07/27/2024 [facility] Care Teams (unrecognized sec [...] November 16, 2023 End: November 16, 2023 Stock Shipper Relationship Specialty Start Date End Date Ayse Preciado MD [address] [place] [address] PCP - General Family Medicine 02/22/24 Stock Shipper Relationship Specialty Start Date End Date Ayse Preciado MD [address] [place] [address] PCP - General Family Medicine 02/22/24 Stock Shipper Relationship Specialty Start Date End Date Ayse Preciado MD [address] [place] [address] PCP - General Family Medicine 02/22/24 Stock Shipper Relationship Specialty Start Date End Date Ayse Preciado MD [address] [place] [address] PCP - General Family Medicine 02/22/24 Stock Shipper Relationship Specialty Start Date End Date Ayse Preciado MD [address] [facility] [place] [address] PCP - General Family Medicine 02/22/24 Stock Shipper Relationship Specialty Start Date End Date Ayse Preciado MD [address] [facility] [place] [phone] PCP - General Family Medicine 02/22/24 Goals (unrecognized section and content) Goals may be documented in a n alternate sectionGoals may be documented in an alternate section No data available for this section No data available for this sectionGoals may be documented in an alternate section Reason for Visit (unrecogniz ed section and content) Reason Comments Pre-op Visit Reason Comments Post-op Visit FOR RECORDS PERTAINING TO PATIENTS WHO [...] BE BASED ON THE PRIMARY CLINICAL RECORDS. [employer] provides no warranty or guarantee of the accuracy or completeness of information in this document.
== END 2024-08-28 10:35 | disposition home or self-care (01) ==
LOC: RAD 10:34
PROVIDERS: PCP Family Medicine; Visit Provider Urology
DX: N20.0 Calculus of kidney (principal)
CPT/HCPCS: 74018

== ENCOUNTER 2025-02-12 06:30 | Outpatient (OUT) | payer OTHER, SELFPAY ==
--- OUTSIDE RECORDS SUMMARY | 2025-02-12 06:35 | XMS_ITS | CCD ---
Author Organization [facility] Care Team Providers Care Geophysicist Name Role Phone HAMLET, DR ANAHI Reich [...] DR ANAHI Reich Consulting Unavailable ZIEBJAKE, DR UDAY Santos Consulting Unavailable PRECIADO, DR CHELO Esposito Admitting Unavailable PRECIADO, DR CHELO Esposito Attending Unavailable BALL, DR WITT Primary Care Unavailable WEST, DR ANAHI Reich Consulting Unavailable PRECIADO, DR CHELO Esposito Consulting Unavailable WEST, DR ANAHI Reich [...] DR ANAHI Reich Consulting Unavailable ZIEBJAKE, DR UDAY Santos Consulting Unavailable WEST, DR ANAHI Reich [...] DR ANAHI Reich Consulting Unavailable ZIEBER, DR UDAY Santos Consulting Unavailable WEST, DR ANAHI Reich Admitting Unavailable WEST, DR ANAHI Reich Attending Unavailable BALL, DR WITT Primary Care Unavailable WEST, DR ANAHI Reich Consulting Unavailable PRECIADO, DR CHELO Esposito Admitting Unavailable PRECIADO, DR CHELO Esposito Attending Unavailable BALL, DR WITT Primary Care Unavailable ZIEBER, DR UDAY Santos Consulting Unavailable PRECIADO, DR CHELO Esposito Consulting Unavailable WEST, DR ANAHI Reich Admitting Unavailable WEST, DR ANAHI Reich Attending Unavailable BALL, DR WITT Primary Care Unavailable WEST, DR ANAHI Reich Consulting Unavailable BALL, DR WITT Admitting Unavailable BALL, DR WITT Attending Unavailable BALL, DR WITT Primary Care Unavailable BALL, DR WITT Consulting Unavailable ZIEBER, DR UDAY Santos Consulting Unavailable WEST, DR ANAHI Reich Admitting Unavailable WEST, DR ANAHI Reich Attending Unavailable BALL, DR WITT Primary Care Unavailable WEST, DR ANAHI Reich Consulting Unavailable ZIEBER, DR UDAY Santos Consulting Unavailable WEST, DR ANAHI Reich Admitting Unavailable WEST, DR ANAHI Reich Attending Unavailable BALL, DR WITT Primary Care Unavailable WEST, DR ANAHI Reich Consulting Unavailable MD Chelo Preciado Primary Care Provider [phone] MD Chelo Preciado Attending Provider [phone] CHELO PRECIADO Primary Care Physician [phone] MD Chelo Preciado Primary Care Provider DO Juan Antonio Flynn Attending Provider [phone] Chelo Preciado MD Primary Care Provider Juan Antonio Flynn Admitting Unavailable Juan Antonio Flynn Attending Unavailable Chelo Preciado Primary Care Unavailable Juan Antonio Flynn Attending Unavailable Chelo Preciado Primary Care Unavailable Juan Antonio Flynn Admitting Unavailable Chelo Preciado Admitting Unavailable Chelo Preciado Primary Care Unavailable Chelo Preciado Attending Unavailable COOK, Gurdeep Henson Attending Unavailable COOK, Gurdeep P Attending Unavailable COOK, Gurdeep P Referring Unavailable COOK, Gurdeep P Admitting Unavailable COOK, Gurdeep P Attending Unavailable COOK, Gurdeep P Referring Unavailable COOK, Gurdeep P Attending Unavailable COOK, Gurdeep P Attending Unavailable Allergies Allergy Classification Reported Allergen(s) Allergy Type Date of Onset Reaction(s) Facility Sulfonamides (antibiotic) (1 source) Sulfonamides (Antibiotic); Translations: [sulfa drugs] Drug Allergy Eruption of skin (disorder) [facility] (2 sources) Sulfamethoxazole / Trimethoprim Drug Allergy [facility] (20 sources) Sulfamethoxazole; Translations: [sulfamethoxazole] Drug Allergy 11-16-19 [facility] (4 sources) Sulfonamides (Antibiotic); Translations: [Sulfa (Sulfonamide Antibiotics)] Allergy to substance 11-16-19 [facility] (20 sources) Trimethoprim; Translations: [trimethoprim] Drug Allergy 11-16-19 [facility] (3 sources) Sulfonamides (Antibiotic); Translations: [sulfa drugs] Drug allergy Eruption of skin (disorder) [facility] (16 sources) Sulfamethoxazole / Trimethoprim Drug Allergy 02-22-20 24 [facility] Work Phone: (16 sources) Sulfonamides (Antibiotic) Drug Allergy 02-01-20 24 [facility] Work Phone: Medications Current Medications Medication Drug Class(es) Dates Sig (Normalized) Sig (Original) amLODIPine 10 mg oral tablet (20 sources) Dihydropyridine Calcium Channel Jose Start: 09-03-2024 take 1 tablet by mouth once daily amLODIPine 10 mg Tab 10 mg = 1 tab(s), Oral, Daily, Refills(s) 0 Start Date: 09/03/24 Status: Ordered Start: 02-01-2024 End: 04-08-2024 take 1 tablet [...] Refills(s) 0, Pharmacy: [facility]/pharmacy #[id number] Start Date: 01/29/24 Status: Ordered fluticasone [...] Esposito losartan potassium 50 mg oral tablet (20 sources) Angiotensin 2 Receptor Jose Start: 09-03-2024 take 1 tablet by mouth once daily losartan 50 mg Tab 50 mg = 1 tab(s), Oral, Daily Start Date: 09/03/24 Status: Ordered Start: 03-11-2024 take 1 tablet by falguni th once daily Losartan Active 0 .ROUTE .COMPLEX [...] Date Documented Da te Episodic/Chronic Allergic reactions (3 sources) Atopic dermatitis 11-23-2020 Chronic Calculus of urinary tract (4 sources) Kidney stone; Translations: [Calculus of kidney] Onset: 4 Episodic Deficiency and other anemia (3 sources) Iron deficiency anemia 11-24-2020 Episodic Essential hypertension (7 sources) Hypertensive disorder; Translations: [Essential (primary) hypertension] Onset: 4 10-30-2023 Chronic Genitourinary symptoms and ill-defined conditions (2 sources) Unspecified urinary incontinence; Translations: [Urinary incontinence] Onset: 5 Chronic Nutritional deficiencies (3 sources) Iron deficiency 11-23-2020 Episodic Other aftercare (20 sources) Surgical follow-up; Translations: [Encounter for follow-up examination after completed treatment for conditions other than malignant neoplasm] Onset: 4 04-18-2024 Episodic Other diseases of kidney and ureters (1 source) Urinary tract obstruction; Translations: [Hydronephrosis with renal and ureteral calculous obstruction] Onset: 5 Episodic Other female genital disorders (2 sources) Other specified noninflammatory disorders of uterus; Translations: [Other specified symptoms associated with female genital organs] 02-01-2024 Episodic Other nutritional; endocrine; and metabolic disorders (3 sources) Body mass index 30+ - obesity 11-26-2020 Chronic Other nutritional; endocrine; and metabolic disorders (3 sources) Morbid obesity 11-23-2020 Chronic Other screening for suspected conditions (not mental disorders or infectious disease) (4 sources) Encounter for screening mammogram for malignant neoplasm of breast; Translations: [ENC SCR MAMMO MALIG NEOPLASM BREAST] Onset: 2 Episodic Other skin disorders (3 sources) Trichilemmal cyst 11-26-2020 Episodic Phlebitis; thrombophlebitis and thromboembolism (13 sources) Phlebitis and thrombophlebitis of superficial vessels of right lower extremity; Translations: [Phlebitis and thrombophlebitis of superficial vessels of left lower extremity] Onset: 2 Episodic Residual codes; unclassified (1 source) Family history of leukemia; Translations: [FAMILY HISTORY OF LEUKEMIA] Onset: 2 Episodic Residual codes; unclassified (3 sources) Family history of diabetes mellitus 11-23-2020 Episodic Varicose veins of lower extremity (10 sources) Varicose veins of bilateral lower extremities [...] Onset: 12-13-2021 Episodic Other female genital disorders (20 sources) Mass of uterus; Translations: [Other specified noninflammatory disorders of uterus] Onset: 02-22-2024 02-01-2024 Episodic Other female genital disorders (17 sources) Enlarged uterus; Translations: [Hypertrophy of uterus] Onset: 04-18-2024 04-18-2024 Episodic Unclassified (1 source) Obstructive hydronephrosis 09-03-2024 Results Test Name Value Interpretation Reference Range Facility Ambulatory Visit Summaryon 0 09-03-2024 Ambulatory Visit Summary Ambulatory Visit Summary LIZ KING :1965 MRN:[id number] Visit Date:09/03/2024 Ambulatory Visit Instructions Your Diagnosis Ureteral stone with hydronephrosis History of kidney stones Urinary incontinence Tests Performed XR Abdomen 1 View -- Results Pending -- Please visit your patient portal for your results or contact your primary care physician. Your Care Team Attending Physician - Gurdeep SWEENEY MD Primary Care Physician - CHELO PRECIADO MD This Is Your Medications List ciprofloxacin (Cipro 500 mg Tab) Contact prescribing physician if questions or concerns amlodipine (amLODIPine 10 mg Tab) losartan (losartan 50 mg Tab) Procedures Performed Hysterectomy (07/24/2024), Cystoscopic removal of ureteric stent (02/19/2024), Cystoscopic insertion of ureteric stent (01/25/2024), Bilateral tubal ligation, section, Excision of thyroglossal duct cyst, Lithotripsy. Discharge Vitals Temperature (Oral) 37 ???C Heart Rate (Peripheral) 81 Blood Pressure 124/82 Height 166 cm Height 65 in Weight 100.8 kg Weight 222.226 lb BMI 36.58 What to do next You Need to Schedule the Following Appointments Follow Up with ZAHRA DONNELLY, Gurdeep Henson, URL When: Where: [address] [address]- Medications What How Much When Instructions Unchanged ciprofloxacin (Cipro 500 mg Tab) See instructions Take 1 tab day prior to procedure and 1 tab day of procdure - afterwards Unchanged amlodipine (amLODIPine 10 mg Tab) 1 Tablets By Mouth Every day Contact prescribing physician if questions or concerns Unchanged losartan (losartan 50 mg Tab) 1 Tablets By Mouth Every day Contact prescribing physician if questions or concerns Allergies sulfa drugs (Rash) Problems Ongoing - Any problem that you are currently receiving treatment for. BMI 32.0-32.9,adult History of kidney stones Iron deficiency anemia Pilar cysts Urinary incontinence Varicose veins of legs Historical - Any problem that you are no longer receiving treatment for. Allergic dermatitis FH: Diabetes mellitus Iron deficiency Morbid obesity Ureteral stone with hydronephrosis Varicose veins of bilateral lower limbs Patient Survey You may receive a survey via text or e-mail asking about your office visit. Please share your experience with us by completing your survey. We appreciate your feedback and thank you for choosing us for your care. Education Materials Dietary Guidelines to Help Prevent Kidney Stones Kidney stones are deposits of minerals and salts that form inside your kidneys. Your risk of developing kidney stones may be greater depending on your diet, your lifestyle, the medicines you take, and whether you have certain medical conditions. Most people can lower their risks of developing kidney stones by following these dietary guidelines. Your dietitian may give you more specific instructions depending on your overall health and the type of kidney stones you tend to develop. What are tips for following this plan? Reading food labels ??? Choose foods with no salt added or low-salt labels. Limit your salt (sodium) intake to less than 1,500 mg a day. ??? Choose foods with calcium for each meal and snack. Try to eat about 300 mg of calcium at each meal. Foods that contain 200???500 mg of calcium a serving include: ? 8 oz (237 mL) of milk, qcjvret-dmdygoteejol-yarsx milk, and calcium-fortifiedfruit juice. Calcium-fortified means that calcium has been added to these drinks. ? 8 oz (237 mL) of kefir, yogurt, and soy yogurt. ? 4 oz (114 g) of tofu. ? 1 oz (28 g) of cheese. ? 1 cup (150 g) of dried figs. ? 1 cup (91 g) of cooked broccoli. ? One 3 oz (85 g) can of sardines or mackerel. Most people need 1,000???1,500 mg of calcium a day. Talk to your dietitian about how much calcium is recommended for you. Shopping ??? Buy plenty of fresh fruits and vegetables. Most people do not need to avoid fruits and vegetables, even if these foods contain nutrients that may contribute to kidney stones. ??? When shopping for convenience foods, choose: ? Whole pieces of fruit. ? Pre-made salads with dressing on the side. ? Low-fat fruit and yogurt smoothies. ??? Avoid buying frozen meals or prepared deli foods. These can be high in sodium. ??? Look for foods with live cultures, such as yogurt and kefir. ??? Choose high-fiber grains, such as whole-wheat breads, oat bran, and wheat cereals. Cooking ??? Do not add salt to food when cooking. Place a salt shaker on the table and allow each person to add their own salt to taste. ??? Use vegetable protein, such as beans, textured vegetable protein (TVP), or tofu, instead of meat in pasta, casseroles, and soups. Meal planning ??? Eat less salt, if told by your dietitian. To do this: ? Avoid eating processed or pre-made food. ? (more content not included)... Normal [facility] Urology Office/Clinic Noteon 09-03-2024 Urology Office/Clinic Note Urology Office/Clinic Note Chief Complaint 6month F/U w/kub HPI Staff New Pt to our office. 6 month follow up w/KUB. Pt was seen at [facility] on 01/25/24 due to obstructing stone 7mm in Lt distal ureter S/P Cysto stent placement 01/25/24, stent removal 02/19/24 before hysterectomy pt had issues with incontinence pt states has gotten better. Dysuria: denies Incomplete bladder emptying: denies Hematuria: denies any visual blood Frequency: every 3-4 hours Urgency: denies Nocturia: 0 Stream: good stream Leaking: better since recent hysterectomy Post void dripping: denies Wearing pads/ Depends: thin panty liners Urge incontinence: denies Stress incontinence: denies Incontinence without Sensory Awareness: denies Abdominal pain: denies Flank pain: denies Sexual complaints: denies History of Present Illness Tests reviewed: UA, KUB, consult note, op notes I have reviewed the previous health record information and history for this patient from Dr. Sweeney. I have reviewed and verified the staff HPI to be accurate for this encounter. Review of Systems PHQ Score Initial Depression Screen Score: 0 SCORE ROS - Provider Constitutional: denies weight loss, denies hot flashes. Eyes: denies eye problems. Gastrointestinal: denies nausea, denies vomiting. Cardiovascular: denies chest pain or angina. Integumentary: no dryness Musculoskeletal: denies musculoskeletal symptoms. ENMT: denies otolaryngeal symptoms. Respiratory: no shortness of breath. Heme/Lymph: denies easy bleeding tendency, denies easy bruising tendency. Psychiatric: no confusion, no anxiety. Genitourinary: See HPI. Physical Exam Vitals & Measurements T: 37 ???C(Oral) HR: 81(Peripheral) BP: 124/82 HT: 65 in HT: 166 cm WT: 100.8 kg WT: 222.226 lb BMI: 36.58 General Appearance: alert, no distress, well nourished, well developed female. Assessment/Plan Liz is a 59 yo female new pt to the office here for 6 mo follow up to urology consult and stone procedure. Hx of two c-sections. 1. Ureteral stone with hydronephrosis (N13.2: Hydronephrosis with renal and ureteral calculous obstruction) CT AP wo con 01/25/24 [facility] - No renal stones noted. Urology consult 01/25/24 due to 7 mm obstructing L ureteral stone and UTI. S/p cysto, L RPG, L urs with laser of distal ureteral stone, basket, L JJ stent placement 01/28/24. Stone analysis - 60% CaOx mono, 40% CaOx di. Cysto, stent removal 02/19/24. KUB 08/28/24 [facility] - Neg. Ureteral stone resolved. UA neg. Reviewed imaging with pt. Disclaimer that xray may miss tiny stones. Second stone episode. Prior episode about 25+ yrs ago. Discussed metabolic workup including 24 hour urine and blood work for stone prevention. Pt does not feel this is necessary at this time given long period in between stones. Educated pt on dietary modifications and fluid intake for stone prevention. Follow up 1 yr with KUB or sooner if needed. Pt understands and agrees with plan. -High fluid intake. Never void yellow. 2. History of kidney stones (Z87.442: Personal history of urinary calculi) See #1. 3. Urinary incontinence (R32: Unspecified urinary incontinence) Mild. Hx of hysterectomy by Dr. Flynn 07/24/24. Was told she had a bunch of fibroids around the bladder. Bladder seems to be working better after hysterectomy. Started wearing daily pad 3-4 yrs ago d/t mild SEYMOUR and UUI. These sxs have improved after procedure. Overall the patient has had no further kidney stones. Abdominal x-ray is negative. She is status post hysterectomy from apparent fibroid uterus. Patient states she has had some decrease in her urinary urgency and frequency symptomatology since the hysterectomy. At this point we will see her in 1 year with a KUB. She agrees with that plan. I offered her 24-hour urine/metabolic workup but for now she wants to push fluids and simply follow-up with the x-ray in a year. Follow-up With When Contact Information Gurdeep SWEENEY MD, URL [address] [place] [id number]- Additional Instructions: 1 yr with KUB Patient Education Dietary Guidelines to Help Prevent Kidney Stones I, Alexandrea Landon, personally scribed for Dr. Sweeney on 09/03/2024 15:06:37. . Documentation recorded by the scribe, Alexandrea Landon, accurately reflects the services(s) I performed and decisions made by me. Authenticated by Dr. Sweeney on 09/03/2024 15:08:45. Portions of this record may have been created with voice recognition artificial intelligence software, specifically [employer], [employer] and or [employer]. Substitutions may have occurred due to the inherent limitations of voice recognition and artificial intelligence software. Problem List/Past Medical History Ongoing BMI 32.0-32.9,adult History of kidney stones Iron deficiency anemia Pilar cysts Urinary incontinence Varicose veins of legs Historical (more content not included)... Normal [facility] Comment on above: Result Comment: Elec tronically Signed By: Gurdeep SWEENEY MD\.br\Date and Time Signed: 09/03/24 15:09 EST\.br\Electronically Co-Signed By: Alexandrea Landon\.br\Date and Time Co-Signed: 09/03/24 15:07 EST ALL CBC WITH AUTO DIFFon BASOPHILS ABSOLUTE AUTO 0 [facility] Basophils/100 WBC (Bld) 0.1 % Low 0.2 - 2.0 % [facility] Eosinophils/100 WBC (Bld) 0 % Low 0.9 - 7.0 % [facility] Erythrocyte distribution width (RBC) [Ratio] 11.9 % 11.0 - 15.0 % [facility] Hematocrit (Bld) [Volume fraction] 34.5 % Low 36.0 - 48.0 % [facility] Hemoglobin (Bld) [Mass/Vol] 11.9 g/dL Low 12.0 - 16.0 g/dL [facility] IMMATURE GRANULOCYTES ABS AUTO 0.04 High [facility] Immature granulocytes/100 WBC (Bld) 0.3 % 0.0 - 0.5 % [facility] Interpretation and review of laboratory results Abnormal [facility] LYMPHOCYTES ABSOLUTE AUTO 1.1 Low [facility] Lymphocytes/100 WBC (Bld) 8.7 % Low 20.5 - 60.0 % [facility] MCH (RBC) [Entitic mass] 29 pg 26.7 - 34.0 pg [facility] MCHC (RBC) [Mass/Vol] 34.5 g/dL 29.9 - 35.2 g/dL [facility] MCV (RBC) [Entitic vol] 83.9 fL 81.0 - 99.0 fL [facility] MONOCYTES ABSOLUTE AUTO 1 High [facility] Monocytes/100 WBC (Bld) 7.4 % 1.7 - 12.0 % [facility] NEUTROPHILS ABSOLUTE AUTO 10.9 High [facility] Neutrophils/100 WBC (Bld) 83.5 % High 43.0 - 75.0 % [facility] Platelet mean volume (Bld) [Entitic vol] 10.3 fL 9.5 - 13.5 fL [facility] EO # 0 [facility] PLT 248 [facility] RBC 4.11 Low [facility] WBC 13 High [facility] ALL CBC WITH AUTO DIFFon BASOPHILS ABSOLUTE AUTO 0.1 [facility] Basophils/100 WBC (Bld) 0.8 % 0.2 - 2.0 % [facility] Eosinophils/100 WBC (Bld) 2.4 % 0.9 - 7.0 % [facility] Erythrocyte distribution width (RBC) [Ratio] 11.9 % 11.0 - 15.0 % [facility] Hematocrit (Bld) [Volume fraction] 39.5 % 36.0 - 48.0 % [facility] Hemoglobin (Bld) [Mass/Vol] 13.4 g/dL 12.0 - 16.0 g/dL [facility] IMMATURE GRANULOCYTES ABS AUTO 0.02 [facility] Immature granulocytes/100 WBC (Bld) 0.3 % 0.0 - 0.5 % [facility] LYMPHOCYTES ABSOLUTE AUTO 1.6 [facility] Lymphocytes/100 WBC (Bld) 26 % 20.5 - 60.0 % [facility] MCH (RBC) [Entitic mass] 28.7 pg 26.7 - 34.0 pg [facility] MCHC (RBC) [Mass/Vol] 33.9 g/dL 29.9 - 35.2 g/dL [facility] MCV (RBC) [Entitic vol] 84.6 fL 81.0 - 99.0 fL [facility] MONOCYTES ABSOLUTE AUTO 0.5 [facility] Monocytes/100 WBC (Bld) 8.8 % 1.7 - 12.0 % [facility] NEUTROPHILS ABSOLUTE AUTO 3.8 [facility] Neutrophils/100 WBC (Bld) 61.7 % 43.0 - 75.0 % [facility] Platelet mean volume (Bld) [Entitic vol] 9.8 fL 9.5 - 13.5 fL [facility] EO # 0.2 [facility] PLT 259 [facility] RBC 4.67 [facility] WBC 6.2 [facility] Braden 07-24-2024 L -------- -------- Specimen: [id number] Received: 07/24/24 Status: ERIC Aguirre Num: [id number] Spec Type: Surgical Subm Dr: Juan Antonio Flynn Tissues: A Uterus w/ or w/o tubes ovaries except neoplastic or prolap (UTERUS,CERVIX, Procedures: , Gross/Micro L5 -------- Age/ Patient Sex Location Account Attending Physician -------- Liz King 59/F [facility] [id number] Juan Antonio Flynn -------- SPEC NUM: [id number] RECD: 07/24/24 STATUS: ERIC LIUSujey NUM: [id number] MAURY: 07/24/24-[address] [facility] [address]: Juan Antonio Flynn ENTERED: 07/24/[address] [facility] [address]: Maciej,Lab SPEC TYPE: Surgical DEPT: NAVYA BENJAMIN ENTERED BY: [id number] RECV BY: [id number] ORDERED: , Gross/Micro L5 ORDERED: , Gross/Micro [...] anterior to posterior and 7 -------- Specimen: [id number] Received: 07/24/24 Status: ERIC Aguirre Num: [id number] Spec Type: Surgical Subm Dr: Juan Antonio Flynn Tissues: A Uterus w/ or w/o tubes ovaries except neoplastic or prolap (UTERUS,CERVIX, Procedures: , Gross/Micro L5 -------- Patient: Liz King [id number] (Continued) -------- Specimen: [id number] Received: 07/24/24 (Continued) Gross Description (Continued) Signed (signature on file) Floyd Ochoa MD 07/26/241625 -------- Specimen: [id number] Received: 07/24/24 Status: ERIC Aguirre Num: [id number] Spec Type: Surgical Subm Dr: Juan Antonio Flynn Tissues: A Uterus w/ or w/o tubes ovaries except neoplastic or prolap (UTERUS,CERVIX, Procedures: , Gross/Micro L5 -------- Patient: FernandoLiz [id number] (Continued) -------- Specimen: [id number] Received: 07/24/24 (Continued) Gross Description (Continued) cm fundus to cervical resection margin. The serosa is phoenix-pink, smooth and glistening. The detached cervix show [...] 1 cm in diameter. The serosa is candelaria- pur (more content not included)... Normal [facility] ALL TYPE AND SCREENon 2023 ABO and Rh group Nom (d) Blood group A Rh(D) negative [facility] l , [facility] ALL CBC WITH AUTO DIFFon BASOPHILS ABSOLUTE AUTO 0.1 [facility] Basophils/100 WBC (Bld) 0.8 % 0.2 - 2.0 % [facility] Eosinophils/100 WBC (Bld) 2.2 % 0.9 - 7.0 % [facility] Erythrocyte distribution width (RBC) [Ratio] 12.1 % 11.0 - 15.0 % [facility] Hematocrit (Bld) [Volume fraction] 37 % 36.0 - 48.0 % [facility] Hemoglobin (Bld) [Mass/Vol] 12.8 g/dL 12.0 - 16.0 g/dL [facility] IMMATURE GRANULOCYTES ABS AUTO 0.02 [facility] Immature granulocytes/100 WBC (Bld) 0.3 % 0.0 - 0.5 % [facility] LYMPHOCYTES ABSOLUTE AUTO 1.7 [facility] Lymphocytes/100 WBC (Bld) 29.1 % 20.5 - 60.0 % [facility] MCH (RBC) [Entitic mass] 29.3 pg 26.7 - 34.0 pg [facility] MCHC (RBC) [Mass/Vol] 34.6 g/dL 29.9 - 35.2 g/dL [facility] MCV (RBC) [Entitic vol] 84.7 fL 81.0 - 99.0 fL [facility] MONOCYTES ABSOLUTE AUTO 0.5 [facility] Monocytes/100 WBC (Bld) 8.2 % 1.7 - 12.0 % [facility] NEUTROPHILS ABSOLUTE AUTO 3.6 [facility] Neutrophils/100 WBC (Bld) 59.4 % 43.0 - 75.0 % [facility] Platelet mean volume (Bld) [Entitic vol] 10.2 fL 9.5 - 13.5 fL [facility] TBH EO # 0.1 [facility] PLT 242 [facility] RBC 4.37 [facility] WBC 6 [facility] ALL CBC WITH AUTO DIFFon BASOPHILS ABSOLUTE AUTO 0.0 [facility] Basophils/100 WBC (Bld) 0.8 % 0.2 - 2.0 % [facility] Eosinophils/100 WBC (Bld) 3.3 % 0.9 - 7.0 % [facility] Erythrocyte distribution width (RBC) [Ratio] 12.1 % 11.0 - 15.0 % [facility] Hematocrit (Bld) [Volume fraction] 36.5 % 36.0 - 48.0 % [facility] Hemoglobin (Bld) [Mass/Vol] 13.1 g/dL 12.0 - 16.0 g/dL [facility] IMMATURE GRANULOCYTES ABS AUTO 0.01 [facility] Immature granulocytes/100 WBC (Bld) 0.2 % 0.0 - 0.5 % [facility] Interpretation and review of laboratory results Abnormal [facility] LYMPHOCYTES ABSOLUTE AUTO 1.8 [facility] Lymphocytes/100 WBC (Bld) 33.8 % 20.5 - 60.0 % [facility] MCH (RBC) [Entitic mass] 29.8 pg 26.7 - 34.0 pg [facility] MCHC (RBC) [Mass/Vol] 35.9 g/dL High 29.9 - 35.2 g/dL [facility] MCV (RBC) [Entitic vol] 83.1 fL 81.0 - 99.0 fL [facility] MONOCYTES ABSOLUTE AUTO 0.5 [facility] Monocytes/100 WBC (Bld) 10.0 % 1.7 - 12.0 % [facility] NEUTROPHILS ABSOLUTE AUTO 2.7 [facility] Neutrophils/100 WBC (Bld) 51.9 % 43.0 - 75.0 % [facility] Platelet mean volume (Bld) [Entitic vol] 10.0 fL 9.5 - 13.5 fL [facility] TBH EO # 0.2 [facility] PLT 237 [facility] RBC 4.39 [facility] WBC 5.2 [facility] Basophils Auto (Bld) [#/Vol] on 04-11-2024 Basophils (Bld) [#/Vol] 0.0 10 3/uL 0.0-0.1 [facility] Basophils/100 WBC Auto (Bld) on 04-11-2024 Basophils/100 WBC (Bld) 0.8 % 0.2-2.0 [facility] Eosinophils/100 WBC Auto (Bl d)on 04-11-2024 Eosinophils/100 WBC (Bld) 3.3 % 0.9-7.0 [facility] Erythrocyte distribution wid th Auto (RBC) [Ratio]on 04-11-2024 Erythrocyte distribution width (RBC) [Ratio] 12.1 % 11.0-15.0 [facility] Hematocrit Auto (Bld) [Volum e fraction]on 04-11-2024 Hematocrit (Bld) [Volume fraction] 36.5 % 36.0-48.0 [facility] Hemoglobin [Mass/volume] in Bloodon 04-11-2024 Hemoglobin (Bld) [Mass/Vol] 13.1 g/dL 12.0-16.0 [facility] Braden 04-11-2024 L Specimen: [id number] R eceived: 04/11/24 Status: ERIC Aguirre Num: [id number] Spec Type: Surgical Subm Dr: Juan Antonio Flynn Tissues: A Cervical Polyp (CERV POLYP) B Endometrium - Curettings (ENDOM CUR) Procedures: HE/4, Gross/Micro L4/2 Age/ Patient Sex Location Account Attending Physician Liz King El 59/F LABELL [id number] Juan Antonio Flynn SPEC NUM: [id number] RECD: 04/11/24 STATUS: ERIC KIRSTY NUM: [id number] MAURY: 04/11/24- SUBM DR: Juan Antonio Flynn ENTERED: 04/11/[address] [facility] DR: Maciej,Lab SPEC TYPE: Surgical DEPT: NAVYA BENJAMIN ENTERED BY: [id number] RECV BY: [id number] ORDERED: HE/4, Gross/Micro L4/2 ORDERED: HE/4, Gross/Micro [...] x 1.0 x 0.4 cm -------- Specimen: [id number] Received: 04/11/24 Status: VALDeshawn Aguirre Num: [id number] Spec Type: Surgical Subm Dr: Juan Antonio Flynn Tissues: A Cervical Polyp (CERV POLYP) B Endometrium - Curettings (ENDOM CUR) Procedures: HE/4, Gross/Micro L4/2 -------- Patient: Liz King [id number] (Continued) -------- Specimen: [id number] Received: 04/11/24 (Continued) Gross Description (Continued) Signed (signature on file) Floyd Ochoa MD 04/19/24 1050 -------- Specimen: [id number] Received: 04/11/24 Status: ERIC Aguirre Num: [id number] Spec Type: Surgical Subm Dr: Juan Antonio Flynn Tissues: A Cervical Polyp (CERV POLYP) B Endometrium - Curettings (ENDOM CUR) Procedures: Jan MART/Perez L4/2 -------- Patient: Liz King [id number] (Continued) -------- Specimen: [id number] Received: 04/11/24 (Continued) Gross Description (Continued) in aggregate. The specimen is entirely submitted in cassette B1. Microscopic Description Microscopic examinations are performed supporting the above interpretation CPT Codes 68786Y2 -------- -------- Specimen: [id number] Received: 04/11/24 Status: ERIC Aguirre Num: [id number] Spec Type: Surgical Subm Dr: Juan Antonio Flynn Tissues: A Cervical Polyp (CERV POLYP) B Endometrium - Curettings (ENDOM CUR) Procedures: HE/4, Gross/Micro L4/2 -------- Patient: Liz King [id number] (Formerly [facility]) -------- Signed (signature on file) Floyd Ochoa MD 04/19/24 1050 Normal [facility] Laboratory - Hematology and Cell countson 04-11-2024 Immature granulocytes/100 WBC (Bld) 0.2 % 0.0-0.5 [facility] Leukocytes [#/volume] correc aubrey for nucleated erythrocytes in Blood by Automated counon 04-11-2024 WBC corrected for nucl RBC Auto (Bld) [#/Vol] 5.2 10 3/uL 4.0-11.0 [facility] Lymphocytes Auto (Bld) [#/Vo l]on 04-11-2024 Lymphocytes (Bld) [#/Vol] 1.8 10 3/uL 1.2-3.8 [facility] Lymphocytes/100 WBC Auto (Bl d)on 04-11-2024 Lymphocytes/100 WBC (Bld) 33.8 % 20.5-60.0 [facility] MCH Auto (RBC) [Entitic mass ]on 04-11-2024 MCH (RBC) [Entitic mass] 29.8 pg 26.7-34.0 [facility] MCHC Auto (RBC) [Mass/Vol]on 04-11-2024 MCHC (RBC) [Mass/Vol] 35.9 g/dL High 29.9-35.2 [facility] MCV Auto (RBC) [Entitic vol] on 04-11-2024 MCV (RBC) [Entitic vol] 83.1 fL 81.0-99.0 [facility] Monocytes Auto (Bld) [#/Vol] on 04-11-2024 Monocytes (Bld) [#/Vol] 0.5 10 3/uL 0.3-0.8 [facility] Monocytes/100 WBC Auto (Bld) on 04-11-2024 Monocytes/100 WBC (Bld) 10.0 % 1.7-12.0 [facility] Neutrophils Auto (Bld) [#/Vo l]on 04-11-2024 Neutrophils (Bld) [#/Vol] 2.7 10 3/uL 1.4-6.5 [facility] Neutrophils/100 WBC Auto (Bl d)on 04-11-2024 Neutrophils/100 WBC (Bld) 51.9 % 43.0-75.0 [facility] No Panel Informationon 04-11 Eosinophils # (Auto) 0.2 10 3/uL 0.0-0.7 [facility] Immature Granulocyte # (Auto) 0.01 10 3/uL 0.00-0.03 [facility] Platelet mean volume Auto (B ld) [Entitic vol]on 04-11-2024 Platelet mean volume (Bld) [Entitic vol] 10.0 fL 9.5-13.5 [facility] Platelets Auto (Bld) [#/Vol] on 04-11-2024 Platelets (Bld) [#/Vol] 237 10 3/uL 150-450 [facility] RBC Auto (Bld) [#/Vol]on RBC (Bld) [#/Vol] 4.39 10 6/uL 4.20-5.40 [facility] Inpatient Patient Summaryon 02-19-2024 Inpatient Patient Summary Inpatient Patient Summary [place] [id number] Clinical Summary Person Information Name: LIZ KING Age: 59 Years : 1965 Sex: Female PCP: CHELO PRECIADO MD Marital Status: Race: White Ethnicity: Non- or Language: Chinese Visit Id: Visit Reason: KIDNEY STONE Speciality: Acuity: Enc Type: Outpatient Med Service: Surgery Arrival: 02/19/2024 14:32:49 Discharge: Dispo Type: Address: [address] [facility] [id number] Provider Notes: Diagnosis: Problems Active Pilar cysts [...] up: With: Address: When: Gurdeep SWEENEY [address], [address], [place] [id number] Business (1) Comments: The stent has now [...] with Stent Removal Discharge Instructions (Custom) [facility] Main OR Intraoperative Recor don 02-19-2024 Main OR Intraoperative Record Main OR Intraoperative Record IntraOp Document Type FTURO Summary Primary Physician: Gurdeep SWEENEY MD Finalized Date/Time: 02/19/24 15:19:48 Pt. Name: LIZ KING D.O.B./Sex: 1965 Female Med Rec #: [id number] Physician: Gurdeep SWEENEY MD Financial #: [id number] Pt. Type: O Room/Bed: / Admit/Disch: 02/19/24 [...] Kimberly A Role Performed Surgeon - Primary Design Draftsman - Primary Scrub - Primary Time In [...] Position Verified Availability Equipment, Medication Time Out ZAHRA DONNELLY, Gurdeep Henson, Verified (If Participants Ludy Dietrich, Applicable) Jennifer [...] Dietrich 02/19/24 15:19 Ludy Dietrich 02/19/24 15:19 Kaur Ludy E 02/19/24 15:19 Normal [facility] Main OR Preoperative Recordo n 02-19-2024 Main OR Preoperative Record Main OR Preoperative Record Holding Area Document Type FTURO Summary Primary Physician: Gurdeep SWEENEY MD Finalized Date/Time: 02/19/24 14:49:34 Pt. Name: LIZ KING /Sex: 1965 Female Med Rec #: [id number] Physician: Gurdeep SWEENEY MD Financial #: [id number] Pt. Type: O Room/Bed: / Admit/Disch: 02/19/24 [...] TORREY Castelan RN, Ruthann 02/19/24 14:49 Normal [facility] Operative Reporton Operative Report Operative Report [...] urine/metabolic workup prior to that visit.. Normal [facility] Comment on above: Result Comment: Elec tronically Signed By: Gurdeep SWEENEY MD\.br\Date and Time Signed: 02/19/24 15:22 EDT Outpatient Surgery Discharge Instructionon 02-19-2024 Outpatient Surgery Discharge Instruction Outpatient Surgery Discharge Instruction [address] [address] Patient Discharge Instructions PERSON INFORMATION [...] Follow up: With: Address: When: Gurdeep SWEENEY [address] [place] [address], [address], [address] [address] Business (1) Comments: The stent has now [...] to serve you. Thank you for choosing [facility] Normal [facility] Consultation Noteon 02-01-20 24 Consultation Note [id number]#1.00TIFF Normal [facility] Insurance Correspondence Off iceon 01-30-2024 Insurance Correspondence Office [id number]#1.00TIFF Normal [facility] Operative Reporton Operative Report [id number]#1.00TIFF Normal [facility] Ammonium urate crystals dete ction in stone by infrared spectroscopyon 01-25-2024 Ammonium urate crystals Infrared spectroscopy Ql (Stone) TNP . [facility] Basophils Auto (Bld) [#/Vol] on 01-25-2024 Basophils (Bld) [#/Vol] 0.0 10 3/uL 0.0-0.1 [facility] Basophils/100 WBC Auto (Bld) on 01-25-2024 Basophils/100 WBC (Bld) 0.4 % 0.2-2.0 [facility] Calcium bilirubinate measure menton 01-25-2024 Calcium bilirubinate (Stone) [Mass fraction] TNP . [facility] Calcium carbonate (Stone) [M ass fraction]on 01-25-2024 Stone Calcium Carbonate TNP . [facility] Calcium hydrogen phosphate d ihydrate (Stone) [Mass fraction]on 01-25-2024 Stone Calcium Hydrogen Phosphate TNP . [facility] Calcium oxalate dihydrate cr ystals detection in stone by infrared spectroscopyon 01-25-2024 Calcium oxalate dihydrate crystals Infrared spectroscopy Ql (Stone) 40 % . [facility] Calcium oxalate monohydrate crystal detectionon 01-25-2024 Calcium oxalate monohydrate crystals Infrared spectroscopy Ql (Stone) 60 % . [facility] Calcium phosphate measuremen ton 01-25-2024 Calcium phosphate (Stone) [Mass fraction] TNP . [facility] Calculus analysis interpreta tion in stoneon 01-25-2024 Calculus analysis [Interp] TNP . [facility] Calculus analysis [Interp] Comment . [facility] Comment on above: Calculus received we t. Wet calculi must be dried beforeanalysis, which delays reporting of results. Leaving calculiwet (such as water, saline, blood, urine) may lead tochanges in composition. Physician questions regarding Calculi Analysis [facility] Center[facility] at: [phone]. Calculus analysis with calcu katarina photography interpretation in stoneon 01-25-2024 Calculus analysis with calculus photography [Interp] Comment . [facility] Comment on above: Photograph will foll ow under a separate cover Cellular material measuremen t in stone by estimated (mass/mass)on 01-25-2024 Cellular material Est (Stone) [Mass/Mass] TNP . [facility] Cholesterol [Mass/volume] in Serum or Plasmaon 01-25-2024 Cholesterol [Mass/Vol] TNP . [facility] Composition of stoneon 01-24 Composition Nom (Stone) Comment . [facility] Comment on above: Percentage (Represen ts the % composition) Cystine measurementon 2023 Cystine (Unsp spec) [Moles/Vol] TNP . [facility] Determination of color of ca lculuson 01-25-2024 Color (Stone) Brown . [facility] Eosinophils/100 WBC Auto (Bl d)on 01-25-2024 Eosinophils/100 WBC (Bld) 1.5 % 0.9-7.0 [facility] Erythrocyte distribution wid th Auto (RBC) [Ratio]on 01-25-2024 Erythrocyte distribution width (RBC) [Ratio] 12.5 % 11.0-15.0 [facility] Estimated glomerular filtrat ion rate (GFR) non- Americanon 01-25-2024 GFR/1.73 sq M.predicted among non-blacks MDRD (S/P/Bld) [Vol rate/Area] 57 mL/min/{1.73_m2} Low >=60 [facility] Globulin Calc (S) [Mass/Vol] on 01-25-2024 Globulin (S) [Mass/Vol] 3.5 g/dL [facility] Hematocrit Auto (Bld) [Volum e fraction]on 01-25-2024 Hematocrit (Bld) [Volume fraction] 39.7 % 36.0-48.0 [facility] Hemoglobin [Mass/volume] in Bloodon 01-25-2024 Hemoglobin (Bld) [Mass/Vol] 13.6 g/dL 12.0-16.0 [facility] Laboratory - Chemistry and C hemistry - challengeon 01-25-2024 Albumin [Mass/Vol] 4.2 g/dL 3.4-5.0 [facility] ALP [Catalytic activity/Vol] 87 U/L 46-116 [facility] ALT [Catalytic activity/Vol] 42 U/L 14-59 [facility] AST [Catalytic activity/Vol] 27 U/L 15-37 [facility] Bilirubin [Mass/Vol] 0.4 mg/dL 0.2-1.0 [facility] Calcium [Mass/Vol] 9.4 mg/dL 8.5-10.1 [facility] Chloride [Moles/Vol] 105 mmol/L 98-107 [facility] CO2 [Moles/Vol] 28.5 mmol/L 21.0-32.[address] [facility] Creatinine [Mass/Vol] 1.00 mg/dL 0.55-1.02 [facility] GFR/1.73 sq M.predicted MDRD (S/P/Bld) [Vol rate/Area] mL/min/{1.73_m2} >=60 [facility] Glucose [Mass/Vol] 141 mg/dL High 74-106 [facility] Potassium [Moles/Vol] 3.9 mmol/L 3.5-5.1 [facility] Protein [Mass/Vol] 7.7 g/dL 6.4-8.2 [facility] Sodium [Moles/Vol] 140 mmol/L 136-145 [facility] Urea nitrogen [Mass/Vol] 19.0 mg/dL High 7.0-18.0 [facility] Urea nitrogen/Creatinine [Mass ratio] 19.0 mg/mg [facility] Bilirubin Ql (U) Negative NEGATIVE [facility] Glucose (U) [Mass/Vol] Negative NEGATIVE [facility] Ketones Ql (U) Negative NEGATIVE [facility] pH (U) 6.0 [pH] 5.0-9.0 [facility] Specific gravity (U) [Rel density] >=1.030 Abnormal 1.005-1.025 [facility] Urobilinogen Qn (U) 0.2 {Erum'U}/dL 0.2-1.0 [facility] Laboratory - Hematology and Cell countson 01-25-2024 Immature granulocytes/100 WBC (Bld) 0.4 % 0.0-0.5 [facility] Laboratory - Specimen inform ationon 01-25-2024 Appearance (U) CLEAR CLEAR [facility] Color (U) YELLOW YELLOW [facility] Laboratory - Urinalysison Leukocyte esterase Test strip Ql (U) TRACE Abnormal NEGATIVE [facility] Mucus Ql (Urine sed) NONE SEEN NONE SEEN [facility] Nitrite Ql (U) Negative NEGATIVE [facility] Protein Ql (U) 30 mg/dL Abnormal NEG/TRACE [facility] Leukocytes [#/volume] correc aubrey for nucleated erythrocytes in Blood by Automated counon 01-25-2024 WBC corrected for nucl RBC Auto (Bld) [#/Vol] 7.5 10 3/uL 4.0-11.0 [facility] Lymphocytes Auto (Bld) [#/Vo l]on 01-25-2024 Lymphocytes (Bld) [#/Vol] 1.1 10 3/uL Low 1.2-3.8 [facility] Lymphocytes/100 WBC Auto (Bl d)on 01-25-2024 Lymphocytes/100 WBC (Bld) 14.5 % Low 20.5-60.0 [facility] MCH Auto (RBC) [Entitic mass ]on 01-25-2024 MCH (RBC) [Entitic mass] 28.8 pg 26.7-34.0 [facility] MCHC Auto (RBC) [Mass/Vol]on 01-25-2024 MCHC (RBC) [Mass/Vol] 34.3 g/dL 29.9-35.2 [facility] MCV Auto (RBC) [Entitic vol] on 01-25-2024 MCV (RBC) [Entitic vol] 83.9 fL 81.0-99.0 [facility] Measurement of proportion of calculus composed of dried blood (mass/mass)on 01-25-2024 Blood.dried (Stone) [Mass fraction] TNP . [facility] Monocytes Auto (Bld) [#/Vol] on 01-25-2024 Monocytes (Bld) [#/Vol] 0.4 10 3/uL 0.3-0.8 [facility] Monocytes/100 WBC Auto (Bld) on 01-25-2024 Monocytes/100 WBC (Bld) 5.6 % 1.7-12.0 [facility] Neutrophils Auto (Bld) [#/Vo l]on 01-25-2024 Neutrophils (Bld) [#/Vol] 5.9 10 3/uL 1.4-6.5 [facility] Neutrophils/100 WBC Auto (Bl d)on 01-25-2024 Neutrophils/100 WBC (Bld) 77.6 % High 43.0-75.0 [facility] Newberyite crystals detectio n in stone by infrared spectroscopyon 01-25-2024 Newberyite crystals Infrared spectroscopy Ql (Stone) TNP . [facility] No Panel Informationon 01-24 Stone 2,8 Dihydroxyadenine TNP . [facility] Stone Analysis Disclaimer Comment . [facility] Comment on above: Calculi report will follow via computer, mail or courierdelivery. This test was develo ped and its performance characteristicsdetermined by [facility]. It has not been cleared or approvedby the Food and Drug Administration.Performed at: [facility] [id number] [id number] Director: Jessica Morales PhD, Phone: [phone] [place] Bilirubinate TNP . [facility] Stone Calcium Palmitate TNP . [facility] Stone Calcium Stearate TNP . [facility] Stone Drug or Metabolite TNP . [facility] Stone Other Constituent TNP . [facility] Stone Xanthine TNP . [facility] Eosinophils # (Auto) 0.1 10 3/uL 0.0-0.7 [facility] Immature Granulocyte # (Auto) 0.03 10 3/uL 0.00-0.03 [facility] Urine Bacteria LARGE #/HPF Abnormal NONE SEEN [facility] Urine Calcium Oxalate Crystals RARE [facility] Urine Culture Reflexed YES [facility] Urine Occult Blood LARGE Abnormal NEGATIVE [facility] Urine Other Casts NONE SEEN #/LPF NONE SEEN [facility] Urine Other Crystals Seen #/HPF Abnormal None Seen [facility] Urine RBC 20-50 #/HPF Abnormal 0-2 [facility] Urine Squamous Epithelial Cells FEW #/LPF Abnormal NONE/RARE [facility] Urine WBC 0-2 #/HPF Abnormal NONE SEEN [facility] Platelet mean volume Auto (B ld) [Entitic vol]on 01-25-2024 Platelet mean volume (Bld) [Entitic vol] 10.2 fL 9.5-13.5 [facility] Platelets Auto (Bld) [#/Vol] on 01-25-2024 Platelets (Bld) [#/Vol] 249 10 3/uL 150-450 [facility] RBC Auto (Bld) [#/Vol]on RBC (Bld) [#/Vol] 4.73 10 6/uL 4.20-5.40 [facility] Serum or plasma albumin/glob ulin mass ratioon 01-25-2024 Albumin/Globulin [Mass ratio] 1.2 {ratio} [facility] Serum or plasma anion gap de terminationon 01-25-2024 Anion gap [Moles/Vol] 10.4 mmol/L [facility] Size [Entitic volume] of Sto neon 01-25-2024 Size (Stone) [Entitic vol] 7x2 mm . [facility] Comment on above: Multiple pieces rece ived. Dimensions of the largest piecereported. Sodium urate crystals detect ion in stone by infrared spectroscopyon 01-25-2024 Sodium urate crystals Infrared spectroscopy Ql (Stone) TNP . [facility] Specimen source subject [Typ e]on 01-25-2024 Specimen source subject Nom Comment . [facility] Comment on above: Left Ureter Triamterene measurement in c alculuson 01-25-2024 Triamterene (Stone) [Mass fraction] TNP . [facility] Triple phosphate/Total in St oneon 01-25-2024 Triple phosphate (Stone) [Mass fraction] TNP . [facility] Uric acid dihydrate crystals detection in stone by infrared spectroscopyon 01-25-2024 Urate dihydrate crystals Infrared spectroscopy Ql (Stone) TNP . [facility] Estimated glomerular filtrat ion rate (GFR) non- Americanon 10-23-2023 GFR/1.73 sq M.predicted among non-blacks MDRD (S/P/Bld) [Vol rate/Area] mL/min/{1.73_m2} >=60 [facility] Laboratory - Chemistry and C hemistry - challengeon 10-23-2023 Calcium [Mass/Vol] 9.4 mg/dL 8.5-10.1 [facility] Chloride [Moles/Vol] 106 mmol/L 98-107 [facility] CO2 [Moles/Vol] 29.6 mmol/L 21.0-32.[address] [facility] Creatinine [Mass/Vol] 0.80 mg/dL 0.55-1.02 [facility] GFR/1.73 sq M.predicted MDRD (S/P/Bld) [Vol rate/Area] mL/min/{1.73_m2} >=60 [facility] Glucose [Mass/Vol] 81 mg/dL 74-106 [facility] Potassium [Moles/Vol] 3.8 mmol/L 3.5-5.1 [facility] Sodium [Moles/Vol] 142 mmol/L 136-145 [facility] Urea nitrogen [Mass/Vol] 17.0 mg/dL 7.0-18.0 [facility] Urea nitrogen/Creatinine [Mass ratio] 21.2 mg/mg [facility] No Panel Informationon 10-22 Troponin I High Sensitivity <4.0 pg/mL 4.0-51.3 [facility] Comment on above: CUT-OFF POINTS HAVE [...] terminationon 10-23-2023 Anion gap [Moles/Vol] 10.2 mmol/L [facility] MG MAMM SCREEN 3D ANNA CADon 05-31-2022 MG MAMM SCREEN 3D ANNA CAD Patient: LIZ KING Exam Date: 05/31/2022 : 1965 Gender:F Ordering : DR MIRYAM GUTHRIE D.O. Admission #: [id number] Family : Order #: [id number] CLICK HERE TO VIEW EXAM RADIOLOGY REPORT [...] leukemia cancer at age 80. LOCATION: [facility] BREAST COMPOSITION: Heterogeneously dense,which may [...] PALPABLE LUMP SHOULD BE BIOPSIED. Dictated by: Uday Bell M.D. on 05/31/2022 at 15:57 Approved by: Uday Bell M.D. on 05/31/2022 at 16:00 Normal [facility] VC INJ SCL ROBERT ADMITTING OFFICER VEINSon 1 VC INJ SCL ROBERT ADMITTING OFFICER VEINS Patient: LIZ KING. Exam Date: 05/23/2022 : 1965 Gender:F Ordering : DR ANAHI MCNULTY M.D. Admission #: [id number] Family : Order #: [id number] CLICK HERE TO VIEW EXAM RADIOLOGY REPORT PROCEDURE: VEIN CENTER INJECTION SCLEROSING SOLUTION MULTIPLE VEINS SAME COMPARISON: VC INJ SCL ROBERT ADMITTING OFFICER VEINS, 05/18/2022. INDICATIONS: Pain co-occurrent and due [...] successful sclerotherapy as described Dictated by: Anahi Mnculty MD on 05/23/2022 at 13:35 Approved by: Anahi Mcnulty MD on 05/23/2022 at 13:35 Normal [facility] VC INJ SCL ROBERT ADMITTING OFFICER VEINSon 1 VC INJ SCL ROBERT ADMITTING OFFICER VEINS Patient: LIZ KING. Exam Date: 05/18/2022 : 1965 Gender:F Ordering : DR ANAHI MCNULTY M.D. Admission #: [id number] Family : Order #: [id number] CLICK HERE TO VIEW EXAM RADIOLOGY REPORT [...] Anahi Mcnulty MD on 05/18/2022 at 13:11 [facility] VC CONSULT FOLLOWUPon 2021 VC CONSULT FOLLOWUP Patient: SPENCER KING Exam Date: 05/13/2022 : 1965 Gender:F Ordering : DR ANAHI MCNULTY M.D. Admission #: [id number] Family : Order #: [id number] CLICK HERE TO VIEW EXAM RADIOLOGY REPORT [...] 12:57 Normal [facility] VC EXT VENOUS RT LIMITEDon 0 05-13-2022 VC EXT VENOUS RT LIMITED Patient: LIZ KING. Exam Date: 05/13/2022 : 1965 Gender:F Ordering : DR ANAHI MCNULTY M.D. Admission #: [id number] Family : Order #: [id number] CLICK HERE TO VIEW EXAM RADIOLOGY REPORT [...] Mcnulty MD on 05/13/2022 at 12:55 Normal [facility] VC INJ FOAM SCLERO W US MLTI on 05-09-2022 VC INJ FOAM SCLERO W US MLTI Patient: LIZ KING. Exam Date: 05/09/2022 : 1965 Gender:F Ordering : DR ANAHI MCNULTY M.D. Admission #: [id number] Family : Order #: [id number] CLICK HERE TO VIEW EXAM RADIOLOGY REPORT [...] and (more content not included)... Normal [facility] VC CONSULT FOLLOWUPon 2021 VC CONSULT FOLLOWUP Patient: SPENCER KING. Exam Date: 05/02/2022 : 1965 Gender:F Ordering : DR ANAHI MCNULTY M.D. Admission #: [id number] Family : Order #: [id number] CLICK HERE TO VIEW EXAM RADIOLOGY REPORT [...] the physical exam and consultation Dictated by: Uday Bell M.D. on 05/02/2022 at 13:07 Approved by: Uday Bell M.D. on 05/02/2022 at 13:15 Normal [facility] VC EXT VENOUS LT LIMITEDon 0 05-02-2022 VC EXT VENOUS LT LIMITED Patient: LIZ KING Exam Date: 05/02/2022 : 1965 Gender:F Ordering : DR ANAHI MCNULTY M.D. Admission #: [id number] Family : Order #: [id number] CLICK HERE TO VIEW EXAM RADIOLOGY REPORT [...] varicosities within the left leg. Dictated by: Uday Bell M.D. on 05/02/2022 at 13:07 Approved by: Uday Bell M.D. on 05/02/2022 at 13:07 Normal [facility] VC INJ FOAM SCLERO W US MLTI on 04-26-2022 VC INJ FOAM SCLERO W US MLTI Patient: LIZ KING Exam Date: 04/26/2022 : 1965 Gender:F Ordering : DR ANAHI MCNULTY M.D. Admission #: [id number] Family : Order #: [id number] CLICK HERE TO VIEW EXAM RADIOLOGY REPORT [...] GSV, (more content not included)... Normal [facility] VC CONSULT FOLLOWUPon 2021 VC CONSULT FOLLOWUP Patient: SPENCER KING. Exam Date: 04/19/2022 : 1965 Gender:F Ordering : DR ANAHI MCNULTY M.D. Admission #: [id number] Family : Order #: [id number] CLICK HERE TO VIEW EXAM RADIOLOGY REPORT [...] 13:56 Normal [facility] VC EXT VENOUS RT LIMITEDon 0 04-19-2022 VC EXT VENOUS RT LIMITED Patient: LIZ KING. Exam Date: 04/19/2022 : 1965 Gender:F Ordering : DR ANAHI MCNULTY M.D. Admission #: [id number] Family : Order #: [id number] CLICK HERE TO VIEW EXAM RADIOLOGY REPORT [...] 13:24 Normal [facility] VC ENDOVENOUS ABL 1ST V RTon 04-12-2022 VC ENDOVENOUS ABL 1ST V RT Patient: LIZ KING Exam Date: 04/12/2022 : 1965 Gender:F Ordering : DR ANAHI MCNULTY M.D. Admission #: [id number] Family : Order #: [id number] CLICK HERE TO VIEW EXAM RADIOLOGY REPORT [...] The total number of Joules delivered was 50825. The laser was active for 146 seconds [...] 13:30 Normal [facility] VC CONSULT FOLLOWUPon 2021 VC CONSULT FOLLOWUP Patient: SPENCER KING Exam Date: 03/29/2022 : 1965 Gender:F Ordering : DR ANAHI MCNULTY M.D. Admission #: [id number] Family : Order #: [id number] CLICK HERE TO VIEW EXAM RADIOLOGY REPORT [...] the physical exam and consultation Dictated by: Uday Bell M.D. on 03/29/2022 at 14:03 Approved by: Uday Bell M.D. on 03/29/2022 at 14:07 Normal [facility] VC EXT VENOUS LT LIMITEDon 0 03-29-2022 VC EXT VENOUS LT LIMITED Patient: LIZ KING. Exam Date: 03/29/2022 : 1965 Gender:F Ordering : DR ANAHI MCNULTY M.D. Admission #: [id number] Family : Order #: [id number] CLICK HERE TO VIEW EXAM RADIOLOGY REPORT [...] of left great saphenous vein. Dictated by: Uday Bell M.D. on 03/29/2022 at 13:34 Approved by: Uday Bell M.D. on 03/29/2022 at 14:02 Normal [facility] VC ENDOVENOUS ABL 1ST V LTon 03-22-2022 VC ENDOVENOUS ABL 1ST V LT Patient: LIZ KING Exam Date: 03/22/2022 : 1965 Gender:F Ordering : DR ANAHI MCNULTY M.D. Admission #: [id number] Family : Order #: [id number] CLICK HERE TO VIEW EXAM RADIOLOGY REPORT PROCEDURE: VEIN CENTER ENDOVENOUS ABLATION FIRST VEIN LEFT GREAT SAPHENOUS VEIN COMPARISON: None. INDICATIONS: Pain co-occurrent and due to varicose veins of bilateral legs i83.813 OPERATIVE REPORT: The risks and benefits of the procedure had been previously discussed, and were rediscussed at length. Informed written consent was obtained by me and Elpidio tanner. Time out procedure was [...] MD on 03/22/2022 at 14:03 Normal [facility] VC CONSULT FOLLOWUPon 2021 VC CONSULT FOLLOWUP Patient: SPENCER KING Exam Date: 02/25/2022 : 1965 Gender:F Ordering : DR ANAHI MCNULTY M.D. Admission #: [id number] Family : Order #: [id number] CLICK HERE TO VIEW EXAM RADIOLOGY REPORT [...] Mcnulty MD on 02/25/2022 at 14:12 Normal [facility] VC EXT VENOUS RT LIMITEDon 0 02-25-2022 VC EXT VENOUS RT LIMITED Patient: LIZ KING Exam Date: 02/25/2022 : 1965 Gender:F Ordering : DR ANAHI MCNULTY M.D. Admission #: [id number] Family : Order #: [id number] CLICK HERE TO VIEW EXAM RADIOLOGY REPORT [...] Anahi Mcnulty MD on 02/25/2022 at 14:03 [facility] VC CONSULT FOLLOWUPon 2021 VC CONSULT FOLLOWUP Patient: SPENCER KING Exam Date: 02/07/2022 : 1965 Gender:F Ordering : DR ANAHI MCNULTY M.D. Admission #: [id number] Family : Order #: [id number] CLICK HERE TO VIEW EXAM RADIOLOGY REPORT [...] Mcnulty MD on 02/07/2022 at 12:26 Normal [facility] VC EXT VENOUS RT LIMITEDon 0 02-07-2022 VC EXT VENOUS RT LIMITED Patient: LIZ KING Exam Date: 02/07/2022 : 1965 Gender:F Ordering : DR ANAHI MCNULTY M.D. Admission #: [id number] Family : Order #: [id number] CLICK HERE TO VIEW EXAM RADIOLOGY REPORT [...] Mcnulty MD on 02/07/2022 at 12:06 Normal [facility] VC CONSULT FOLLOWUPon 2021 VC CONSULT FOLLOWUP Patient: SPENCER KING. Exam Date: 01/31/2022 : 1965 Gender:F Ordering : DR ANAHI MCNULTY M.D. Admission #: [id number] Family : Order #: [id number] CLICK HERE TO VIEW EXAM RADIOLOGY REPORT [...] the physical exam and consultation Dictated by: Uday Bell M.D. on 01/31/2022 at 15:43 Approved by: Uday Bell M.D. on 01/31/2022 at 15:59 Normal [facility] VC EXT VENOUS RT LIMITEDon 0 01-31-2022 VC EXT VENOUS RT LIMITED Patient: LIZ KING Exam Date: 01/31/2022 : 1965 Gender:F Ordering : DR ANAHI MCNULTY M.D. Admission #: [id number] Family : Order #: [id number] CLICK HERE TO VIEW EXAM RADIOLOGY REPORT [...] ultrasound evaluation in 1 week. Dictated by: Uday Bell M.D. on 01/31/2022 at 14:58 Approved by: Uday Bell M.D. on 01/31/2022 at 15:40 Normal [facility] VC ENDOVENOUS ABL 1ST V RTon 01-25-2022 VC ENDOVENOUS ABL 1ST V RT Patient: LIZ KING Exam Date: 01/25/2022 : 1965 Gender:F Ordering : DR ANAHI MCNULTY M.D. Admission #: [id number] Family : Order #: [id number] CLICK HERE TO VIEW EXAM RADIOLOGY REPORT PROCEDURE: VEIN CENTER ENDOVENOUS ABLATION FIRST VEIN RIGHT COMPARISON: None. INDICATIONS: Pain co-occurrent and due to varicose veins of bilateral legs i83.813 OPERATIVE REPORT: The risks and benefits of the procedure had been previously discussed, and were rediscussed at length. Informed written consent was obtained by az and Rolando Vazquez assisted. Time out procedure [...] 36 cm from the entry 10 cm qbexj-spd-ncfm to 3 cm below the saphenofemoral junction. [...] right anterior accessory saphenous vein. Dictated by: Uday Bell M.D. on 01/25/2022 at 14:27 Approved by: Uday Bell M.D. on 01/25/2022 at 14:30 [facility] COMP CONSULTATIONon 05-12 -2022 VC COMP CONSULTATION Patient: LIZ KING Exam Date: 12/23/2021 : 1965 Gender:F Ordering : DR CHELO PRECIADO M.D. 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 The patient's symptoms are relieved by rest, [...] 13:56 Normal [facility] VC VENOUS REFLUX ANNA LMTon 0 12-23-2021 VC VENOUS REFLUX ANNA LMT Patient: LIZ KING Exam Date: 12/23/2021 : 1965 Gender:F Ordering : DR CHELO PRECIADO M.D. Admission #: [id number] Family : Order #: [id number] CLICK HERE TO VIEW EXAM RADIOLOGY REPORT [...] area of thrombus. Deep venous reflux visualized. [employer]: Dist/med calf 4.2 mm, 3.8s. Dist calf [...] Mcnulty MD on 12/23/2021 at 12:48 Normal [facility] SHANIA DOP LEG LTon 12-14-19 22 [...] thigh great saphenous vein. Electronically authenticated by: UDAY BELL Date: 2021-12-13 12:41 Normal [facility] Vital Signs Date Time Vital Sign Value Performing Clinician Facility 09-03-2024 14:23-0500 Blood Pressure Location Gurdeep SWEENEY [facility] 09-03-2024 14:23-0500 Body temperature 98.6 [degF] Gurdeep SWEENEY [facility] 09-03-2024 14:23-0500 Diastolic blood pressure 82 mm[Hg] Gurdeep SWEENEY [facility] 09-03-2024 14:23-0500 Heart rate 81 /min Gurdeep SWEENEY [facility] 09-03-2024 14:23-0500 Systolic blood pressure 124 mm[Hg] Gurdeep SWEENEY [facility] 09-03-2024 08:57-0500 Body mass index (BMI) [Ratio] 36.3 kg/m2 Juan Antonio Rina DO Work Phone: [facility] 09-03-2024 08:57-0500 Body weight 98.94 kg Juan Antonio Rina DO Work Phone: [facility] 09-03-2024 08:57-0500 Diastolic blood pressure 84 mm[Hg] Juan Antonio Rina DO Work Phone: [facility] 09-03-2024 08:57-0500 Systolic blood pressure 132 mm[Hg] Juan Antonio Rina DO Work Phone: [facility] 08-01-2024 11:28-0500 Body mass index (BMI) [Ratio] 35.18 kg/m2 Juan Antonio Rina DO Work Phone: [facility] 08-01-2024 11:28-0500 Body weight 95.89 kg Juan Antonio Rina DO Work Phone: [facility] 08-01-2024 11:28-0500 Diastolic blood pressure 80 mm[Hg] Juan Antonio Rina DO Work Phone: [facility] 08-01-2024 11:28-0500 Systolic blood pressure 128 mm[Hg] Juan Antonio Rina DO Work Phone: [facility] 06-25-2024 13:36-0500 Body height 165.1 cm Juan Antonio Rina DO Work Phone: [facility] 06-25-2024 13:36-0500 Body mass index (BMI) [Ratio] 36.11 kg/m2 Juan Antonio Rina DO Work Phone: [facility] 06-25-2024 13:36-0500 Body weight 98.43 kg Juan Antonio Rina DO Work Phone: [facility] 06-25-2024 13:36-0500 Diastolic blood pressure 70 mm[Hg] Juan Antonio Rina DO Work Phone: [facility] 06-25-2024 13:36-0500 Systolic blood pressure 122 mm[Hg] Juan Antonio Rina DO Work Phone: [facility] 04-18-2024 11:17-0400 Body weight 95.76 kg Juan Antonio Rina DO Work Phone: [facility] 04-18-2024 11:17-0400 Diastolic blood pressure 70 mm[Hg] Juan Antonio Rina DO Work Phone: [facility] 04-18-2024 11:17-0400 Systolic blood pressure 120 mm[Hg] Juan Antonio Rina DO Work Phone: [facility] 02-01-2024 14:32-0400 Body height 165.1 cm [facility] 02-01-2024 14:32-0400 Body mass index (BMI) [Ratio] 34.6 kg/m2 [facility] 02-01-2024 14:32-0400 Body weight 94.34 kg [facility] 02-01-2024 14:32-0400 Diastolic blood pressure 75 mm[Hg] [facility] 02-01-2024 14:32-0400 Heart rate 63 /min [facility] 02-01-2024 14:32-0400 Systolic blood pressure 121 mm[Hg] [facility] 01-25-2024 16:12-0400 Body weight 57 mg MD Chelo Preciado Work Phone: [facility] 11-16-2023 14:56-0400 Body height 165.1 cm MD Chelo Preciado Work Phone: [facility] 11-16-2023 14:56-0400 Body mass index (BMI) [Ratio] 34.7 kg/m2 MD Chelo Preciado Work Phone: [facility] 11-16-2023 14:56-0400 Body weight 94.51 kg MD Chelo Preciado Work Phone: [facility] 11-16-2023 14:56-0400 Diastolic blood pressure 81 mm[Hg] MD Chelo Preciado Work Phone: [facility] 11-16-2023 14:56-0400 Heart rate 70 /min MD Chelo Preciado Work Phone: [facility] 11-16-2023 14:56-0400 Systolic blood pressure 131 mm[Hg] MD Chelo Preciado Work Phone: [facility] 10-23-2023 14:13-0400 Body height 165.1 cm MD Chelo Preciado Work Phone: [facility] 10-23-2023 14:13-0400 Body mass index (BMI) [Ratio] 34.4 kg/m2 MD Chelo Preciado Work Phone: [facility] 10-23-2023 14:13-0400 Body weight 94 kg MD Chelo Preciado Work Phone: [facility] 10-23-2023 14:13-0400 Diastolic blood pressure 90 mm[Hg] MD Chelo Preciado Work Phone: [facility] 10-23-2023 14:13-0400 Heart rate 62 /min MD Chelo Preciado Work Phone: [facility] 10-23-2023 14:13-0400 Systolic blood pressure 134 mm[Hg] MD Chelo Preciado Work Phone: [facility] Encounters Encounter Date Encounter Type Care Provider Facility Start: 09-02-2025 ambulatory Gurdeep SWEENEY Facility : [facility] Start: 09-03-2024 End: 09-03-2024 ambulatory Gurdeep SWEENEY Facility:[facility] Start: 09-03-2024 End: 09-03-2024 Patient encounter procedure Gurdeep SWEENEY [facility] Start: 09-03-2024 End: 09-03-2024 Bamboo flowsheet Juan Antonio Rina DO Work Phone: [facility] Start: 09-03-2024 End: 09-03-2024 Bamboo flowsheet Juan Antonio Rina DO Work Phone: [facility] Start: 09-03-2024 End: 09-03-2024 Postop follow up visit related to original px Juan Antonio Rina DO Work Phone: [facility] Comment on above: Postoperative follow -up; S/P hysterectomy Start: 08-01-2024 End: 08-01-2024 Bamboo flowsheet Juan [...] 07-24-2024 End: 07-24-2024 ambulatory Juan Antonio Rina Facility:[facility] Start: 07-22-2024 End: 07-23-2024 Clinisync Result [...] done Juan Antonio Rina DO Work Phone: [facility] Start: 04-18-2024 End: 04-18-2024 Bamboo flowsheet Juan Antonio Rina DO Work Phone: [facility] Start: 04-18-2024 End: 04-18-2024 Bamboo flowsheet Juan Antonio Rina DO Work Phone: [facility] Start: 04-18-2024 End: 04-18-2024 Postop follow up visit related to original px Juan Antonio Rina DO Work Phone: [facility] Comment on above: Postoperative examin ation; Pelvic pain in female; Uterine mass; Bulky or enlarged uterus; Pelvic pressure in female Start: 04-11-2024 End: 04-11-2024 Clinisync Result Encounter Juan Antonio Rina DO Work Phone: [facility] Unsolicited Start: 04-11-2024 End: 04-11-2024 Clinisync Result Encounter Juan Antonio Rina DO Work Phone: [facility] Unsolicited Start: 04-11-2024 End: 04-11-2024 ambulatory MD Chelo Preciado Work Phone: [facility] Work Phone: Start: 04-11-2024 End: 04-11-2024 Departed Referred MD Chelo Preciado Work Phone: [facility] Start: 04-11-2024 Non-patient / Non-visit MD Zoey Preciado Work Phone: [facility] Work Phone: Start: 02-19-2024 End: 02-19-2024 ambulatory Gurdeep SWEENEY Facility:[facility] Start: 02-19-2024 End: 02-19-2024 Patient encounter procedure Gurdeep SWEENEY [facility] Start: 02-07-2024 End: 02-07-2024 ambulatory Gurdeep Sixto SWEENEY Facility:[facility] Start: 02-07-2024 End: 02-07-2024 Patient encounter procedure Gurdeep Henson ZAHRA [facility] Start: 02-01-2024 End: 02-01-2024 ambulatory [facility] Work Phone: Start: 02-01-2024 End: 02-01-2024 Patient encounter procedure [facility] Work Phone: Start: 01-26-2024 ambulatory Gurdeep SWEENEY Facility:[facility] Start: 01-25-2024 Non-patient / Non-visit [facility] Work Phone: Start: 01-25-2024 End: 01-25-2024 ambulatory Gurdeep P ZAHRA Facility:CD:[id number] Start: 11-16-2023 End: 11-16-2023 ambulatory MD Chelo Preciado Work Phone: [facility] Work Phone: Start: 11-16-2023 End: 11-16-2023 Patient encounter procedure MD Chelo Preciado Work Phone: [facility] Work Phone: Start: 10-23-2023 End: 10-23-2023 ambulatory Chelo Preciado Facility:[facility] Start: 10-23-2023 End: 10-23-2023 Patient encounter procedure MD Chelo Preciado Work Phone: [facility] Physician [facility] Work Phone: Start: 05-31-2022 End: 06-01-2022 ambulatory [...] Start: 04-12-2022 End: 04-13-[address] ANAHI MNCULTY Facility:[facility] Start: 03-29-2022 End: 03-30-[address] [...] Facility:[facility] Start: 12-23-2021 End: 12-24-[address] CHELO PRECIADO Facility:[facility] Start: 12-13-2021 End: 12-14-[address] CHELO PRECIADO Facility:[facility] Procedures Date Procedure Procedure Detail Performing Clinician Start: 07-25-2024 ALL CBC WITH AUTO DIFF Juan Antonio Rina DO Work Phone: Start: 07-24-2024 ALL CBC WITH AUTO DIFF Juan Antonio Rina DO Work Phone: Start: 07-24-2024 Franki VICENTE [place] Start: 07-22-2024 Antibody screen Juan Antonio F azio DO Work Phone: Start: 07-22-2024 ALL TYPE AND SCREEN Cor ey Rina DO Work Phone: Start: 07-08-2024 ALL CBC WITH AUTO DIFF Juan Antonio Rina DO Work Phone: Start: 06-04-2024 Mammography Juan Antonio Fazi o DO Work Phone: Start: 04-11-2024 ALL CBC WITH AUTO DIFF Juan Antonio Rina DO Work Phone: Start: 02-19-2024 Cystoscopic removal of ureteric stent Gurdeep SWEENEY Start: 01-25-2024 Cystoscopic insertio n of ureteric stent Gurdeep SWEENEY Bilateral tubal ligation Tyshawn SWEENEY section Gurdeep VEL Jasson Excision of thyroglo ssal duct cyst Gurdeep SWEENEY H/O: hysterectomy S/P hysterectomy Juan Antonio Rina DO Work Phone: Lithotripsy Gurdeep SWEENEY Plan of Treatment Date Care Activity Detail Author Start: 09-08-2025 End: 09-08-2025 Patient encounter procedure 09/08/2025 4:00 PM EST Office Visit [facility] [address] [place] [address] Juan Antonio Flynn, DO [address] [place] [address] [facility] Start: 06-04-2025 Screening for malign ant neoplasm of breast Mammogram [facility] Start: 09-03-2024 End: 09-03-2024 Patient encounter procedure 09/03/2024 8:40 AM EST Office [facility] [address] [place] [address] Juan Antonio Flynn, DO [address] [place] [address] [facility] Start: 08-01-2024 End: 08-01-2024 Patient encounter procedure 08/01/2024 10:50 AM EST Office Visit [facility] [address] [phone] Juan Antonio Flynn, DO [address] [place] [address] [facility] Start: 06-25-2024 End: 06-25-2024 Patient encounter procedure 06/25/2024 1:10 PM EST [facility] [address] [place] [phone] Juan Antonio Flynn, DO [address] [place] [address] [facility] Start: 04-14-2024 Influenza vaccination Influenza Vacc ine (#1) [facility] Start: 02-01-2024 Patient referral [facility] Work Phone: Start: 10-23-2023 EKG 12 channel panel [facility] Start: 2005 Screening for malign ant neoplasm of breast Mammogram [facility] Start: 1995 Screening for malign ant neoplasm of cervix [facility] Start: 1986 Screening for malign ant neoplasm of cervix Pap Smear [facility] Start: 1965 Screening for malign ant neoplasm of colon [facility] Patient referral [facility] Work Phone: [place] [facility] Immunizations Immunization Date Immunization Notes Care Provider Jarrett martinez 10-19-2021 SARS-CoV-2 mRNA (ckufpyrnotz-anvu-sabnf se) vaccine Gurdeep SWEENEY [facility] 09-27-2021 SARS-CoV-2 mRNA (ppaijbbglri-cdgd-hamsf se) vaccine Gurdeep [employer] [facility] 08-04-2016 tetanus toxoid, redu alejandro diphtheria toxoid, and acellular pertussis vaccine, adsorbed GurdeepSIGKAT [facility] 05-07-2001 Hep A, unspecified formulation GurdeepSIGKAT [facility] 05-07-2001 hepatitis B vaccine, adult dosage LIN [employer] [facility] 11-15-2000 hepatitis B vaccine, adult dosage LIN TV [facility] 10-09-2000 Hep A, unspecified formulation LIN TV [facility] 10-09-2000 hepatitis B vaccine, adult dosage LIN TV [facility] 06-28-1999 Td(adult) unspecifie d formulation LIN TV [facility] Payers Date Payer Category Payer Self-pay 2023 Unknown [id number] 2023 Private Health Insurance [employer] [id number] 2023 Unknown [employer] [id number] 2023-Present [address] [place] [address] [id number] 1965 Unknown [id number] 2.16.840.1.158826.3.579.2. 593 1965 Unknown [id number] 2.16.840.1.424243.3.579.2. 593 1965 Unknown [id number] 2.16.840.1.269670.3.579.2. 593 1965 Unknown [id number] 2.16.840.1.661711.3.579.2. 593 1965 Unknown [id number] 2.16.840.1.819328.3.579.2. 593 1965 Unknown [id number] 2.16.840.1.916922.3.579.2. 593 1965 Unknown [id number] 2.16.840.1.610397.3.579.2. 593 1965 Unknown [id number] 2.16.840.1.709963.3.579.2. 593 1965 Unknown [id number] 2.16.840.1.986410.3.579.2. 593 1965 Unknown [id number] 2.16.840.1.983077.3.579.2. 593 1965 Unknown [id number] 2.16.840.1.009152.3.579.2. 593 1965 Unknown [id number] 2.16.840.1.293374.3.579.2. 593 1965 Unknown [id number] 2.16.840.1.459134.3.579.2. 593 1965 Unknown [id number] 2.16.840.1.601398.3.579.2. 593 1965 Unknown [id number] 2.16.840.1.157612.3.579.2. 593 1965 Unknown [id number] 2.16.840.1.711244.3.579.2. 593 1965 Unknown [id number] 2.16.840.1.192184.3.579.2. 593 1965 Unknown [id number] 2.16.840.1.475316.3.579.2. 593 1965 Unknown [id number] 2.16.840.1.779477.3.579.2. 593 1965 Unknown [id number] 2.16.840.1.069350.3.579.2. 593 1965 Unknown [id number] 2.16.840.1.598332.3.579.2. 593 1965 Unknown [id number] 2.16.840.1.561694.3.579.2. 727 1965 Unknown [id number] 2.16.840.1.605526.3.579.2. 727 1965 Unknown [id number] 2.16.840.1.172343.3.579.2. 727 1965 Unknown [id number] 2.16.840.1.848082.3.579.2. 727 1965 Unknown [id number] 2.16.840.1.098663.3.579.2. 727 1959 Unknown [id number] Unknown [id number] 2.16.840.1.466280.3.579.2. 531 Unknown [id number] 2.16.840.1.237949.3.579.2. 531 Unknown [id number] 2.16.840.1.817425.3.579.2. 531 Social History Date Type Detail Facility Start: 10-23-2023 End: 09-03-2024 Tobacco smoking status NHIS Never smoked tobacco (finding) [facility] Start: 1965 Sex Assigned At Female F [facility] Sex Assigned At Female [facility] Tobacco smoking status VAIS Tobacco smoking consumption unknown [facility] Start: 04-18-2024 Gender identity Identifies as female gender (finding) [facility] Start: 1965 Sex assigned at Not on file N [facility] Functional Status Date Assessment Result Facility 09-03-2024 Functional Status N/A [facility] Clinical Notes 02-01-2024 to 09-03-2024 Janina Garcia, LUCRECIA - 09/03/2024 8:40 AM ESTSusan Spitler, CRISIS THERAPIST - 08/01/2024 10:50 AM ESTMiranda Angelkwame - 06/25/2024 1:10 PM ESTSusan Spitler, CRISIS THERAPIST - 04/18/2024 10:20 AM EDT Note Date & Type Note Facility 09-03-2024 Hospital Discharg e instructions Patient Education 09/03/2024 15:06:22 Dietary Guidelines to Help Prevent Kidney Stones Dietary Guidelines to Help Prevent Kidney Stones Kidney stones are deposits of minerals and salts that form inside your kidneys. Your risk of developing kidney stones may be greater depending on your diet, your lifestyle, the medicines you take, and whether you have certain medical conditions. Most people can lower their risks of developing kidney stones by following these dietary guidelines. Your dietitian may give you more specific instructions depending on your overall health and the type of kidney stones you tend to develop. What are tips for following this plan? Reading food labels Choose foods with no salt added or low-salt labels. Limit your salt (sodium) intake to less than 1,500 mg a day. Choose foods with calcium for each meal and snack. Try to eat about 300 mg of calcium at each meal. Foods that contain 200 500 mg of calcium a serving include: ?8 oz (237 mL) of milk, tphpnyr-oadiukdjhfmj-jilht milk, and calcium-fortifiedfruit juice. Calcium-fortified means that calcium has been added to these drinks. ?8 oz (237 mL) of kefir, yogurt, and soy yogurt. ?4 oz (114 g) of tofu. ?1 oz (28 g) of cheese. ?1 cup (150 g) of dried figs. ?1 cup (91 g) of cooked broccoli. ?One 3 oz (85 g) can of sardines or mackerel. Most people need 1,000 1,500 mg of calcium a day. Talk to your dietitian about how much calcium is recommended for you. Shopping Buy plenty of fresh fruits and vegetables. Most people do not need to avoid fruits and vegetables, even if these foods contain nutrients that may contribute to kidney stones. When shopping for convenience foods, choose: ?Whole pieces of fruit. ?Pre-made salads with dressing on the side. ?Low-fat fruit and yogurt smoothies. Avoid buying frozen meals or prepared deli foods. These can be high in sodium. Look for foods with live cultures, such as yogurt and kefir. Choose high-fiber grains, such as whole-wheat breads, oat bran, and wheat cereals. Cooking Do not add salt to food when cooking. Place a salt shaker on the table and allow each person to add their own salt to taste. Use vegetable protein, such as beans, textured vegetable protein (TVP), or tofu, instead of meat in pasta, casseroles, and soups. Meal planning Eat less salt, if told by your dietitian. To do this: ?Avoid eating processed or pre-made food. ?Avoid eating fast food. Eat less animal protein, including cheese, meat, poultry, or fish, if told by your dietitian. To do this: ?Limit the number of times you have meat, poultry, fish, or cheese each week. Eat a diet free of meat at least 2 days a week. ?Eat only one serving each day of meat, poultry, fish, or seafood. ?When you prepare animal proteins, cut pieces into small portion sizes. For most meat and fish, one serving is about the size of the palm of your hand. Eat at least five servings of fresh fruits and vegetables each day. To do this: ?Keep fruits and vegetables on hand for snacks. ?Eat one piece of fruit or a handful of berries with breakfast. ?Have a salad and fruit at lunch. ?Have two kinds of vegetables at dinner. You may be told to limit foods that are high in a substance called oxalate. These include: ?Spinach (cooked), rhubarb, beets, sweet potatoes, and [place]guill[place] chard. ?Peanuts. ?Potato chips, upper sorbian fries, and baked potatoes with skin on. ?Nuts and nut products. ?Chocolate. If you regularly take a diuretic medicine, make sure to eat at least 1 or 2 servings of fruits or vegetables that are high in potassium each day. These include: ?Avocado. ?Banana. ?[place], prune, carrot, or tomato juice. ?Baked potato. ?Cabbage. ?Beans and split peas. Lifestyle Drink enough fluid to keep your urine pale yellow. This is the most important thing you can do. Spread your fluid intake throughout the day. If you drink alcohol: ?Limit how much you have to: ?0 1 drink a day for women who are not . ?0 2 drinks a day for men. ?Know how much alcohol is in your drink. In the [place] one drink equals one 12 oz bottle of beer (355 mL), one 5 oz glass of wine (148 mL), or one 1 oz glass of hard liquor (44 mL). Lose weight if told by your health care provider. Work with your dietitian to find an eating plan and weight loss strategies that work best for you. General information Talk to your health care provider and dietitian about taking daily supplements. Depending on your health and the cause of your kidney stones, you may be told: ?Do not take high-dose supplements of vitamin C (1,000 mg a day or more). ?To take a calcium supplement. ?To take a daily probiotic supplement. ?To take other supplements such as magnesium, fish oil, or vitamin B6. Take nysn-oah-vaokmgz and prescription medicines only as told by your health care provider. These include supplements. What foods should I limit? Limit your intake of the following foods, or eat them as told by your dietitian. Vegetables Spinach. Rhubarb. Beets. Canned vegetables. Pickles. Olives. Baked potatoes with skin. Grains Wheat bran. Baked goods. Salted crackers. Cereals high in sugar. Meats and other proteins Nuts. Nut butters. Large portions of meat, poultry, or fish. Salted, precooked, or cured meats, such as sausages, meat loaves, and hot dogs. Dairy Cheeses. Beverages Regular soft drinks. Regular vegetable juice. Seasonings and condiments Seasoning blends with salt. Salad dressings. Soy sauce. Ketchup. Barbecue sauce. Other foods Canned soups. Canned pasta sauce. Casseroles. Pizza. Lasagna. Frozen meals. Potato chips. Maori fries. The items listed above may not be a complete list of foods and beverages you should limit. Contact a dietitian for more information. What foods should I avoid? Talk to your dietitian about specific foods you should avoid based on the type of kidney stones you have and your overall health. Fruits Grapefruit. The item listed above may not be a complete list of foods and beverages you should avoid. Contact a dietitian for more information. Summary Kidney stones are deposits of minerals and salts that form inside your kidneys. You can lower your risk of kidney stones by making changes to your diet. The most important thing you can do is drink enough fluid. Drink enough fluid to keep your urine pale yellow. Talk to your dietitian about how much calcium you should have each day, and eat less salt and animal protein as told by your dietitian. This information is not intended to replace advice given to you by your health care provider. Make sure you discuss any questions you have with your health care provider. Document Revised: 11/10/2022 Document Reviewed: 11/10/2022 [employer] Patient Education 2023 [place]. Follow Up Care 02/19/2024 15:24:02 With:ZAHRA DONNELLY, Gurdeep Henson, URL Address: [address] [place] [id number] When: Unknown [facility] 09-03-2024 Note Patient Education Nephrology Dietary Guidelines to Help Prevent Kidney Stones Kidney stones are deposits of minerals and salts that form inside your kidneys. Your risk of developing kidney stones may be greater depending on your diet, your lifestyle, the medicines you take, and whether you have certain medical conditions. Most people can lower their risks of developing kidney stones by following these dietary guidelines. Your dietitian may give you more specific instructions depending on your overall health and the type of kidney stones you tend to develop. What are tips for following this plan? Reading food labels ??? Choose foods with no salt added or low-salt labels. Limit your salt (sodium) intake to less than 1,500 mg a day. ??? Choose foods with calcium for each meal and snack. Try to eat about 300 mg of calcium at each meal. Foods that contain 200?500 mg of calcium a serving include: ? 8 oz (237 mL) of milk, pbujmfe-uzyfzgnyxwmt-gxcws milk, and calcium-fortifiedfruit juice. Calcium-fortified means that calcium has been added to these drinks. ? 8 oz (237 mL) of kefir, yogurt, and soy yogurt. ? 4 oz (114 g) of tofu. ? 1 oz (28 g) of cheese. ? 1 cup (150 g) of dried figs. ? 1 cup (91 g) of cooked broccoli. ? One 3 oz (85 g) can of sardines or mackerel. Most people need 1,000?1,500 mg of calcium a day. Talk to your dietitian about how much calcium is recommended for you. Shopping ??? Buy plenty of fresh fruits and vegetables. Most people do not need to avoid fruits and vegetables, even if these foods contain nutrients that may contribute to kidney stones. ??? When shopping for convenience foods, choose: ? Whole pieces of fruit. ? Pre-made salads with dressing on the side. ? Low-fat fruit and yogurt smoothies. ??? Avoid buying frozen meals or prepared deli foods. These can be high in sodium. ??? Look for foods with live cultures, such as yogurt and kefir. ??? Choose high-fiber grains, such as whole-wheat breads, oat bran, and wheat cereals. Cooking ??? Do not add salt to food when cooking. Place a salt shaker on the table and allow each person to add their own salt to taste. ??? Use vegetable protein, such as beans, textured vegetable protein (TVP), or tofu, instead of meat in pasta, casseroles, and soups. Meal planning ??? Eat less salt, if told by your dietitian. To do this: ? Avoid eating processed or pre-made food. ? Avoid eating fast food. ??? Eat less animal protein, including cheese, meat, poultry, or fish, if told by your dietitian. To do this: ? Limit the number of times you have meat, poultry, fish, or cheese each week. Eat a diet free of meat at least 2 days a week. ? Eat only one serving each day of meat, poultry, fish, or seafood. ? When you prepare animal proteins, cut pieces into small portion sizes. For most meat and fish, one serving is about the size of the palm of your hand. ??? Eat at least five servings of fresh fruits and vegetables each day. To do this: ? Keep fruits and vegetables on hand for snacks. ? Eat one piece of fruit or a handful of berries with breakfast. ? Have a salad and fruit at lunch. ? Have two kinds of vegetables at dinner. ??? You may be told to limit foods that are high in a substance called oxalate. These include: ? Spinach (cooked), rhubarb, beets, sweet potatoes, and Anguillan chard. ? Peanuts. ? Potato chips, upper sorbian fries, and baked potatoes with skin on. ? Nuts and nut products. ? Chocolate. ??? If you regularly take a diuretic medicine, make sure to eat at least 1 or 2 servings of fruits or vegetables that are high in potassium each day. These include: ? Avocado. ? Banana. ? [place], prune, carrot, or tomato juice. ? Baked potato. ? Cabbage. ? Beans and split peas. Lifestyle ??? Drink enough fluid to keep your urine pale yellow. This is the most important thing you can do. Spread your fluid intake throughout the day. ??? If you drink alcohol: ? Limit how much you have to: ? 0?1 drink a day for women who are not . ? 0?2 drinks a day for men. ? Know how much alcohol is in your drink. In the [place] one drink equals one 12 oz bottle of beer (355 mL), one 5 oz glass of wine (148 mL), or one 1? oz glass of hard liquor (44 mL). ??? Lose weight if told by your health care provider. Work with your dietitian to find an eating plan and weight loss strategies that work best for you. General information ??? Talk to your health care provider and dietitian about taking daily supplements. Depending on your health and the cause of your kidney stones, you may be told: ? Do not take high-dose supplements of vitamin C (1,000 mg a day or more). ? To take a calcium supplement. ? To take a daily probiotic supplement. ? To take other supplements such as magnesium, fish oil, or vitamin B6. ??? Take vuie-pfh-tdhovnt and prescription medicines only as told by your health (more content not included)... [facility] 09-03-2024 History of Presen t illness Narrative Reason for Appointment: Patient ID: Liz King is a 59 y.o. female who presents for Post-op Visit Patient presents today for 6 week [facility] Post Op Follow Up appointment. MEDICATIONS Current [...] Medical History: Diagnosis Date High blood pressure ([facility]) HISTORY PAST MEDICAL HISTORY SOCIAL HISTORY Past Medical History: Diagnosis Date High blood pressure ([facility]) Social History Tobacco Use Smoking status: Not [...] Constitutional: Appearance: Normal appearance. She is well-developed. Genitourinary: Vulva normal. Vaginal cuff intact. Cervix is absent. Uterus is absent. Cardiovascular: Rate and Rhythm: Normal rate and regular rhythm. Abdominal: General: Bowel sounds are normal. There [...] nursing note reviewed. Exam conducted with a middle school spanish teacher present. Vitals: Estimated body mass index is 36.3 kg/m as calculated from the following: Height as of 24: 5' 5 . Weight as of this encounter: 218 lb 1.9 oz. BP: 132/84 No LMP recorded. Patient has had a hysterectomy. ASSESSMENT & PLAN ICD-10-CM 1. Postoperative follow-up Z09 2. S/P hysterectomy Z90.710 Post Op Follow Up: Patient presents today for a 6 week postop check following a Total Abdominal Hysterectomy. Surgery execution and pathology results were discussed in great detail with the patient. Pelvic exam was performed and vaginal cuff and small piece of cervix noted was noted as healing well. All other restrictions have otherwise been lifted. Follow Up: Patient is to return in 1 year for annual exam unless needed otherwise. Documented by Janina Garcia LPN on behalf of: Juan Antonio Flynn DO documented in this encounter [facility] 08-01-2024 History of Presen t illness Narrative [...] nursing note reviewed. Exam conducted with a middle school spanish teacher present. Vitals: Estimated body mass index is 35.18 kg/m as calculated from the following: Height as of 24: 5' 5 . Weight as of this encounter: 211 lb 6.4 oz. BP: 128/80 No LMP recorded. Patient has had a hysterectomy. ASSESSMENT & PLAN ICD-10-CM 1. Postoperative examination Z09 Patient presents today for post operative visit 1 week from [facility]. Incision is healing well and patient voiced she is feeling better each day. Patient to return to clinic in 5 weeks for 6 week post op appointment. Discussed surgery and finding in detail with patient and spouse. Documented by Oneida Pena LPN on behalf of: Juan Antonio Flynn DO documented in this encounter [facility] 06-25-2024 History of Presen t illness Narrative Reason for Appointment: Patient ID: Liz King is a 59 y.o. female who presents for Pre-op Visit Patient presents today for Pre Op appointment. Patient is scheduled to undergo Total Abdominal Hysterectomy, possible BSO, possible cystoscopy on 07/24/[address] Flynn at [facility]. MEDICATIONS Current Outpatient Medications Medication [...] nursing note reviewed. Exam conducted with a middle school spanish teacher present. Vitals: Estimated body mass index is [...] and patient is to proceed to [facility] OR. Follow Up: Patient is to follow up at 1 & 6 weeks post operative to assess proper healing and recovery from procedure. Documented by Janina Garcia LPN on behalf of: Juan Antonio Flynn DO documented in this encounter [facility] 04-18-2024 History of Presen t illness Narrative [...] nursing note reviewed. Exam conducted with a middle school spanish teacher present. Vitals: There is no height or [...] Antonio Flynn DO documented in this encounter [facility] 02-19-2024 Hospital Discharg e instructions Patient Education [...] Care 01/29/2024 11:42:41 With:Gurdeep SWEENEY Address: [address] [phone] Business (1) When: Unknown Comments:The stent has [...] at any time.Have a great day. [facility] 02-19-2024 Note Patient Education Cystoscopy with [...] you have a fever over 100 degrees. [facility] 02-01-2024 Hospital Discharg e instructions Ambulatory OrdersReferral to ABNORMAL PSYCHOLOGY TEACHER Time Frame: 02/01/24, Location: [facility] Work Phone: Evaluation + Plan note Future Appointments Appointment Date:02/12/2024 08:00:00 AM Scheduled Provider: Location:[facility] Appointment Type:Urology CALL PAT FT Appointment Date:02/19/2024 03:15:00 PM Scheduled Provider: Location:[facility] Appointment Type:Urology FT [facility] Evaluation + Plan note Future Appointments Appointment Date:09/03/2024 02:30:00 PM Scheduled Provider:Gurdeep SWEENEY MD Location:[facility] Appointment Type:URO Office Visit [facility] Evaluation + Plan note Future Appointments Appointment Date:09/02/2025 01:45:00 PM Scheduled Provider:Gurdeep SWEENEY MD Location:[facility] Appointment Type:URO Office Visit [facility] Evaluation note Diagnosis Onset Date Epigastric abdominal pain ac [place] HTN (hypertension) acute [facility] Work Phone: Evaluation note* Diagnosis Onset Date Resolution Status HTN (hypertension) acute Uterine mass acute [facility] Work Phone: evaluation note* Diagnosis Onset Date Resolution Status HTN (hypertension) acute Nephrolithiasis acute Uterine mass [facility] Work Phone: evaluation note* Diagnosis Pre-op examination Enlarged uterus Hypertrophy of uterus Pelvic pain in female Unspecified symptom associated with female genital organs documented in this encounter [facility] HealthcareEvaluation note* Diagnosis Postoperative examination Follow-up examination, following unspecified surgery Pelvic pain in female Unspecified symptom associated with female genital organs Uterine mass Other specified symptom associated with female genital organs Bulky or enlarged uterus Hypertrophy of uterus Pelvic pressure in female documented in this encounter [facility] HealthcareEvaluation note* Diagnosis Postoperative examination Follow-up examination, following unspecified surgery documented in this encounter [facility] HealthcareEvaluation note* Diagnosis Postoperative follow-up Follow-up examination, following unspecified surgery S/P hysterectomy Acquired absence of both cervix and uterus documented in this encounter [facility] HealthcareHospital course Narrative No data available for this section [facility] Hospital Discharge instructions No data available for this section [facility] progress note No data available for this section [facility] Summary Purpose Family History No Family [...] pital DATE CREATED AUTHOR AUTHOR'S ORGANIZ ATION 07/27/2024 [facility] DATE CREATED AUTHOR AUTHOR'S ORGANIZ ATION 09/05/2024 [facility] Care Teams (unrecognized sec tion and content) Team Status: Active Member Role Status Dates Chelo Preciado MD Primary Care Provider Active Team Status: Active Member Role Status Dates Chelo Preciado MD Primary Care Provider Active Start: January 25, 2024 Marsha Cool DO Attending Provider Active Start: January 25, 2024 Team Status: Inactive Member Role Status Dates Chelo Preciado MD Primary Care Provide r, Attending Provider Active Start: February 01, 2024 End: February 01, 2024 Team Status: Active Member Role Status Dates Chelo Preciado MD Primary Care Provider Active Start: April 11, 2024 Juan Antonio Flynn DO Attending Provider Active Start : April 11, 2024 Team Status: Inactive Member Role Status Dates Chelo Preciado MD Primary Care Provider Active Start: April 11, 2024 End: April 11, 2024 Juan Antonio Flynn DO Attending Provider Active Start : April 11, 2024 End: April 11, 2024 Team Status: Inactive Member Role Status Dates Chelo Preciado MD Primary Care Provide r, Attending Provider Active Start: October 23, 2023 End: October 23, 2023 Team Status: Inactive Member Role Status Dates Chelo Preciado MD Primary Care Provide r, Attending Provider Active Start: November 16, 2023 End: November 16, 2023 Geophysicist Relationship Specialty Start Date End Date Chelo Preciado MD [address] [place] [phone] PCP - General Family Medicine 02/22/24 Geophysicist Relationship Specialty Start Date End Date Chelo Preciado MD [address] [place] [address] PCP - General Family Medicine 02/22/24 Geophysicist Relationship Specialty Start Date End Date Chelo Preciado MD [address] [facility] [place] [address] PCP - General Family Medicine 02/22/24 Geophysicist Relationship Specialty Start Date End Date Chelo Preciado MD [address] [facility] [place] [address] PCP - General Family Medicine 02/22/24 Geophysicist Relationship Specialty Start Date End Date Chelo Preciado MD [address] [facility] [place] [phone] PCP - General Family Medicine 02/22/24 Geophysicist Relationship Specialty Start Date End Date Chelo Preciado MD [address] [facility] [place] [address] PCP - General Family Medicine 02/22/24 Geophysicist Relationship Specialty Start Date End Date Chelo Preciado MD [address] [facility] [place] [phone] PCP - General Family Medicine 02/22/24 Goals (unrecognized section and content) Goals may be documented in a n alternate sectionGoals may be documented in an alternate section No data available for this section No data available for this sectionGoals may be documented in an alternate section No data available for this section Reason for Visit (unrecogniz ed section [...] BE BASED ON THE PRIMARY CLINICAL RECORDS. [employer] [facility] provides no warranty or guarantee of the accuracy or completeness of information in this document.
[2025-02-12 06:50] LABS: Hematocrit 36.8 % (36.0-48.0); Hemoglobin 12.9 g/dL (12.0-16.0); Immature Granulocytes Abs Auto 0.01 10^3/uL (0.00-0.03); Immature Granulocytes Pct Auto 0.2 % (0.0-0.5); Lymphocytes Absolute Auto 1.6 10^3/uL (1.2-3.8); Mean Corpuscular HGB Conc 35.1 g/dL (29.9-35.2); Mean Corpuscular Hemoglobin 29.5 pg (26.7-34.0); Mean Corpuscular Volume 84.2 fL (81.0-99.0); Platelet Count 260 10^3/uL (150-450); Red Blood Count 4.37 10^6/uL (4.20-5.40); White Blood Count 5.6 10^3/uL (4.0-11.0)
[2025-02-12 08:13] LABS: Alanine Aminotransferase 38 U/L (14-59); Albumin Globulin Ratio 1.1; Albumin Level 3.8 g/dL (3.4-5.0); Alkaline Phosphatase 80 U/L (46-116); Anion Gap 14.4; Aspartate Amino Transferase 21 U/L (15-37); Blood Urea Nitrogen 20.0 mg/dL (7.0-18.0); Calcium 9.1 mg/dL (8.5-10.1); Carbon Dioxide 28.5 mmol/L (21.0-32.0); Chloride 105 mmol/L (98-107); Cholesterol 237 mg/dL (<=200); Estimated GFR (African America >60 (>=60 mL/min/1.73m^2); Estimated GFR (Non-African Ame >60 (>=60 mL/min/1.73m^2); Globulin 3.6 g/dL; Glucose 111 mg/dL (74-106); HDL Cholesterol 51 mg/dL (40-60); Potassium 3.9 mmol/L (3.5-5.1); Sodium 144 mmol/L (136-145); Total Protein 7.4 g/dL (6.4-8.2); Triglycerides 145 mg/dL (<=150); VLDL CHOLESTEROL 29.0 mg/dL
== END 2025-02-12 06:31 | disposition home or self-care (01) ==
LOC: LAB 06:32
PROVIDERS: PCP Family Medicine; Visit Provider Family Medicine
DX: Z00.00 Encounter for general adult medical examination without abnormal findings (principal); I10 Essential (primary) hypertension
CPT/HCPCS: 36415; 80053; 80061; 82043; 82570; 85025

== ENCOUNTER 2025-06-20 13:03 | Outpatient (OUT) | payer OTHER, SELFPAY ==
--- NOTE | 2025-06-20 13:05 | MM_ITS ---
Patient Name: TRENT BO MR#: [id number] : 1965 Exam Date: 06/20/2025 Ordering Doctor: DR CHELO PRECIADO M.D. RADIOLOGY REPORT PROCEDURE: MM TOMOSYNTHESIS SCREENING BI COMPARISON: MM TOMOSYNTHESIS SCREENING BI, 06/04/2024. MM TOMOSYNTHESIS SCREENING BI, 06/01/2023. MG MAMM SCREEN 3D ANNA CAD, 05/31/2022. MG MAMM ANNA SCRN W CAD DIG, 10/09/2013. INDICATIONS: Screening Calculator Name NCI Breast Cancer Risk Assessment Tool 5 Year Breast Cancer Risk 1.60% Lifetime Breast Cancer Risk 8.10% Personal Breast Cancer No Personal Ovarian Cancer No Treatments None Family Cancers Grandmother-maternal with leukemia cancer at age ~80. LOCATION: [facility] BREAST COMPOSITION: There are scattered areas of fibroglandular density. FINDINGS: DIAGNOSTIC CATEGORY 1--NEGATIVE. RIGHT BREAST: No significant suspicious finding. LEFT BREAST: No significant suspicious finding. RECOMMENDATIONS: ROUTINE MAMMOGRAM AND CLINICAL EVALUATION IN 12 MONTHS. Dictated by: Art Sanchez MD on 06/20/2025 at 15:27 Approved by: Art Sanchez MD on 06/20/2025 at 15:29
--- OUTSIDE RECORDS SUMMARY | 2025-06-20 13:07 | XMS_ITS | Encounter Summary ---
Author Organization [facility] Address [address] [place] [address] Care Team Providers Care Production Shift Supervisor Name Role Phone Ayse Baker MD Primary Care Provider [phone] Encounter Details DateTypeDepartmentCare Team (Latest Contact Info)Eneewwgdpfo84/25/2024Clinisync Result Encounter [facility] Unsolicited Luz Flynn, DO [address] [place] [id number] Social History Tobacco UseTypesPacks/DayYears UsedDateSmoking Tobacco: Never Assessed CommentsUnknownSex and Gender InformationValueDate RecordedSex Assigned at Rrkljd6604/18/2024 10:51 AM EDTLegal GvmJfstdw70/24/2024 11:46 AM EDTGender ZcnytufuToqxyq99/05/2024 10:51 AM EDTSexual OrientationNot on filedocumented as of this encounter Plan of Treatment DateTypeDepartmentCare Team (Latest Contact Info)Aabgtgocazj17/26/2026 4:00 PM ESTOffice Visit [facility] [address] [place] [address] Luz Flynn DO [address] [place] [address] documented as of this encounter Procedures Procedure NamePriorityDate/TimeAssociated DiagnosisCommentsECG 12-LEAD07/08/2024 2:27 PM EST documented in this encounter Results * ECG 12-LEAD (07/08/2024 2:27 PM EST)Anatomical RegionLateralityModalityOther Specimen (Source)Anatomical Location / LateralityCollection Method / Volume Collection TimeReceived Time07/08/2024 2:27 PM EST Narrative 07/08/2024 7:53 PM EST [facility] ?[address] ? [place] [address] ? Electrocardiograph Report ? Signed ? Patient: BETZYLIZ F ?MR#: [id number] ?? : 1965 ?Acct:[id number] ?? Age/Sex: 59 / F ?ADM Date: 07/08/24 ?? Loc: PST ? Attending Dr: Luz Flynn D.O. ? Ordering Physician: Luz Flynn D.O. ?? Date of Service: 07/08/24 ?? Procedure(s): ECG 12 lead ?? Accession Number(s): [id number] ? cc: ?[facility] ? Test Date: ?2024-07-08 ?? Pat Name: ? LIZ BO ? Department: ? Room: ? - ?? Gender: ? Female ? School Director: ? : ?1965 ? Requested By: LUZ FLYNN ?? Order Number: [id number] ?Reading MD: ?? RAMON ??BALL ? Measurements ?? Intervals ?[place] ? Rate: ? 64 ? P: ?57 ?? WV: ? 173 ?QRS: ?26 ?? QRSD: ? 96 ? T: ?29 ?? QT: ? 399 ? QTc: ?413 ? Interpretive Statements ?? SINUS RHYTHM ?? Nonspecific ST/T wave changes ?? Compared to ECG 10/23/2023 15:35:59 ?? Electronically Signed On 07-08-2024 19:52:55 EST by RAMON ??BALL ? Dictated By: ?Ramon Guthrie D.O. ? Signed By: ?07/08/241952 ? DD/ 142 ? TD/TT: ? Knot Cutter: Procedure Note Radiology, Radiologist, MD - 07/09/2024 [place] [address] Electrocardiograph Report Signed Patient: LIZ BO FMR#: [id number] : 1965Acct:[id number] Age/Sex: 59 / FADM Date: 07/08/24 Loc: RUST Attending Dr: Luz Flynn D.O. Ordering Physician: Luz Flynn D.O. Date of Service: 07/08/24 Procedure(s): ECG 12 lead Accession Number(s): [id number] cc: [facility] Test Date: 2024-07-08 Pat Name: LIZ BO Department: Room: - Gender: Female School Director: : 1965 Requested By: LUZ FLYNN Order Number: [id number] Reading MD: RAMON GUTHRIE Measurements Intervals [place] Rate: 64 P: 57 WV: 173 QRS: 26 QRSD: 96 T: 29 QT: 399 QTc: 413 Interpretive Statements SINUS RHYTHM Nonspecific ST/T wave changes Compared to ECG 10/23/2023 15:35:59 Electronically Signed On 07-08-2024 19:52:55 EST by RAMON GUTHRIE Dictated By: Ramon Guthrie D.O. Signed By:07/08/241952 DD/ 26 TD/TT: Knot Cutter: Authorizing ProviderResult TypeResult StatusCorederick Flynn DOCLINISYNC IMAGINGFinal Result documented in this encounter Visit Diagnoses Not on filedocumented in this encounter Care Teams Team MemberRelationshipSpecialtyStart DateEnd Date Ayse Baker MD PCP - GeneralFamily Medicine02/22/24documented as of this encounter
--- OUTSIDE RECORDS SUMMARY | 2025-06-20 13:07 | XMS_ITS | Clinical Summary ---
Author Organization [facility] Address [address] [place] [address] Care Team Providers Care Business Services Clerk Name Role Phone Ayse Baker MD Primary Care Provider [phone] Allergies Active AllergyReactionsCriticalityNoted DateComments Sulfamethoxazole-Mskmdcogdmxz33/11/2024Sulfa EdpuivqflsrBromPbq98/20/2024 Other Reaction(s): Hives Tehnqvdlxjihjino65/20/2024 Other Reaction(s): Hives Jrugpzlxixek52/20/2024 Other Reaction(s): Hives Medications MedicationSigDispense QuantityRefillsLast FilledStart DateEnd DateStatus amLODIPine (Norvasc) 10 MG tablet Take 10 mg by mouth Daily02/01/2024ctive losartan (Cozaar) 50 MG tablet Take 50 mg by mouth Daily12/11/2023ctive Active Problems ProblemNoted DateDiagnosed DatePelvic pressure in qzwwls7204/18/2024ulky or enlarged mjgxgq8904/18/2024ostoperative qmomarlavkl42/05/2024Uterine mass 02/22/2024 Family History Medical HistoryRelationNameCommentsHeart attackFatheruterus prolapseMother RelationNameStatusCommentsFatherMother Social History Tobacco UseTypesPacks/DayYears UsedDateSmoking Tobacco: Never Assessed CommentsNoSex and Gender InformationValueDate RecordedSex Assigned at Xutcvb6004/18/2024 10:51 AM EDTLegal EaaIwaead78/24/2024 11:46 AM EDTGender PafnjbyaAqahfo43/05/2024 10:51 AM EDTSexual OrientationNot on file Last Filed Vital Signs Vital SignReadingTime TakenCommentsBlood Ehzlyhal839/8401/ 8:57 AM EST Pulse--Temperature--Respiratory Rate--Oxygen Saturation--Inhaled Oxygen Concentration--Jkiqya81.9 kg (218 lb 1.9 oz)09/03/2024 8:57 AM EQZQxtqgo403.1 cm (5' 5 )06/25/2024 1:36 PM ESTBody Mass Index36. 1:36 PM EST Plan of Treatment DateTypeDepartmentCare Team (Latest Contact Info)Dekmwcspsgp48/26/2026 4:00 PM ESTOffice Visit [facility] [address] [place] [id number] Juan Antonio Flynn DO [address] [place] [address] Insurance Care Teams Team MemberRelationshipSpecialtyStart DateEnd Date Ayse Baker MD PCP - GeneralFamily Medicine02/22/24
--- OUTSIDE RECORDS SUMMARY | 2025-06-20 13:07 | XMS_ITS | Encounter Summary ---
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 Name Role Phone Ayse Baker MD Primary Care Provider [phone] Encounter Details DateTypeDepartmentCare Team (Latest Contact Info)Votwpkswhme09/22/2024Clinisync Result Encounter [facility] Unsolicited Juan Antonio Flynn, DO [address] [place] [phone] Social History Tobacco UseTypesPacks/DayYears UsedDateSmoking Tobacco: Never Assessed CommentsUnknownSex and Gender InformationValueDate RecordedSex Assigned at Deveie7904/18/2024 10:51 AM EDTLegal LldPugywq97/24/2024 11:46 AM EDTGender ZdyaiksfGxvpru86/05/2024 10:51 AM EDTSexual OrientationNot on filedocumented as of this encounter Plan of Treatment DateTypeDepartmentCare Team (Latest Contact Info)Jbdhkscfegv62/26/2026 4:00 PM ESTOffice Visit [facility] [address] [place] [address] Juan Antonio Flynn DO [address] [place], [place] [phone] documented as of this encounter Procedures Procedure NamePriorityDate/TimeAssociated DiagnosisCommentsMM TOMOSYNTHESIS SCREENING BI06/04/2024 3:09 PM EDT documented in this encounter Results * MM TOMOSYNTHESIS SCREENING BI (06/04/2024 3:09 PM EDT)Anatomical Region LateralityModalityOtherSpecimen (Source)Anatomical Location / Laterality Collection Method / VolumeCollection TimeReceived Time06/04/2024 3:09 PM EDT Narrative 06/04/2024 3:10 PM EDT [facility] ?[address] ? [place] [address] ? Mammography Report ? Signed ? Patient: LIZ OB F ?MR#: [id number] ?? : 1965 ?Acct:[id number] ?? Age/Sex: 59 / F ?ADM Date: 06/04/24 ?? Loc: MAMMO ? Attending Dr: Juan Antonio Flynn D.O. ? Ordering Physician: Juan Antonio Flynn D.O. ?Results: ? Date of Service: 06/04/24 ?Follow Up: ? Procedure(s): MM tomosynthesis screening BI ?? Accession Number(s): [id number] ? cc: Ayse Baker M.D.; Juan Antonio Flynn D.O. ? Patient Name: ? LIZ BO ? MR#: [id number] ? : 1965 ? Exam Date: 06/04/2024 ?? Ordering Doctor: DR Juan Antonio Flynn . ? RADIOLOGY REPORT ? PROCEDURE: ? MM TOMOSYNTHESIS SCREENING BI ? COMPARISON: ? [facility] MAMM SCREEN 3D ANNA CAD, 05/31/2022. ??MM TOMOSYNTHESIS ?? SCREENING BI, 06/01/2023. ? INDICATIONS: ? Screening ? Calculator Name ? NCI Breast Cancer Risk Assessment Tool ?? 5 Year Breast Cancer Risk ? 1.50% ?? Lifetime Breast Cancer Risk ? 8.30% ?? Personal Breast Cancer ?No ?? Personal Ovarian Cancer ? No ?? Treatments ? None ?? Family Cancers ? Grandmother-maternal with leukemia cancer at age ??80. ? LOCATION: ? [facility] ? BREAST COMPOSITION: ? The breasts are heterogeneously dense,which may ?? obscure small masses. ? FINDINGS: ? DIAGNOSTIC CATEGORY 2--BENIGN FINDING. NO CHANGE FROM COMPARISON. ? Scattered benign-appearing calcifications are present. ? RIGHT BREAST: ??No significant suspicious finding. ? LEFT BREAST: ??No significant suspicious finding. ? RECOMMENDATIONS: ? ROUTINE MAMMOGRAM AND CLINICAL EVALUATION IN 12 MONTHS. ? PLEASE NOTE: ??A NORMAL MAMMOGRAM DOES NOT EXCLUDE THE POSSIBILITY OF BREAST ?? CANCER. ??A CLINICALLY SUSPICIOUS PALPABLE LUMP SHOULD BE BIOPSIED. ? Dictated by: Aguila Perez MD on 06/04/2024 at 15:05 ? Approved by: Aguila Perez MD on 06/04/2024 at 15:09 ? Dictated By: ?Aguila Perez M.D. ? Signed By: ?06/04/24 1510 ? DD/ 1509 ? TD/TT: ? Agency Cashier: Procedure Note Radiology, Radiologist, MD - 06/04/2024 [place] [address] Mammography Report Signed Patient: LIZ BO R#: [id number] : 1965Acct:[id number] Age/Sex: 59 / FADM Date: 06/04/24 Loc: MAMMO Attending Dr: Juan Antonio Flynn D.O. Ordering Physician: Juan Antonio Flynn D.O.Results: Date of Service: 06/04/24Follow Up: Procedure(s): MM tomosynthesis screening BI Accession Number(s): [id number] cc: Ayse Baker M.D.; Juan Antonio Flynn D.O. Patient Name: LIZ BO MR#: [id number] : 1965 Exam Date: 06/04/2024 Ordering Doctor: DR Juan Antonio Flynn . RADIOLOGY REPORT PROCEDURE: MM TOMOSYNTHESIS SCREENING BI COMPARISON: MG MAMM SCREEN 3D ANNA CAD, 05/31/2022. MM TOMOSYNTHESIS SCREENING BI, 06/01/2023. INDICATIONS: Screening Calculator Name NCI Breast Cancer Risk Assessment Tool 5 Year Breast Cancer Risk 1.50% Lifetime Breast Cancer Risk 8.30% Personal Breast Cancer No Personal Ovarian Cancer No Treatments None Family Cancers Grandmother-maternal with leukemia cancer at age 80. LOCATION: [facility] BREAST COMPOSITION: The breasts are heterogeneously dense,which may obscure small masses. FINDINGS: DIAGNOSTIC CATEGORY 2--BENIGN FINDING. NO CHANGE FROM COMPARISON. Scattered benign-appearing calcifications are present. RIGHT BREAST: No significant suspicious finding. LEFT BREAST: No significant suspicious finding. RECOMMENDATIONS: ROUTINE MAMMOGRAM AND CLINICAL EVALUATION IN 12 MONTHS. PLEASE NOTE: A NORMAL MAMMOGRAM DOES NOT EXCLUDE THE POSSIBILITY OFBREAST CANCER. A CLINICALLY SUSPICIOUS PALPABLE LUMP SHOULD BE BIOPSIED. Dictated by: Aguila Perez MD on 06/04/2024 at 15:05 Approved by: Aguila Perez MD on 06/04/2024 at 15:09 Dictated By: Aguila Perez M.D. Signed By:06/04/24 1510 DD/ 1509 TD/TT: Agency Cashier: Authorizing ProviderResult TypeResult StatusCorey Rina DOCLINISYNC IMAGINGFinal Result documented in this encounter Visit Diagnoses Not on filedocumented in this encounter Care Teams Team MemberRelationshipSpecialtyStart DateEnd Date Ayse Baker MD PCP - GeneralFamily Medicine02/22/24documented as of this encounter
--- OUTSIDE RECORDS SUMMARY | 2025-06-20 13:09 | XMS_ITS | CCD ---
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 Name Role Phone HAMLET, DR ANAHI Reich [...] ANAHI Reich Admmagali Unavailable WEST, DR ANAHI Recih Attending Unavailable BALL, DR WITT Primary Care [...] DR ANAHI Reich Admitting Unavailable WEST, DR NAAHI Reich Attending Unavailable BALL, DR WITT Primary Care Unavailable WEST, DR ANAHI Reich Consulting Unavailable ZIEBER, DR JAYY Santos Consulting Unavailable WEST, DR ANAHI Reich Admitting Unavailable WEST, DR ANAHI Reich Attending Unavailable BALL, DR WITT Primary Care Unavailable WEST, DR ANAHI Reich Consulting Unavailable PRECIADO, DR AYSE Garciaitting Unavailable PRECIADO, DR AYSE Esposito Attending Unavailable [...] Attending Provider AYSE PRECIADO Primary Care Physician MD Ayse Preciado Primary Care Provider DO Luz Flynn Attending Provider [phone] Ayse Preciado MD Primary Care Provider Gurdeep SWEENEY Attending Unavailable Gurdeep SWEENEY Attending Unavailable ZAHRA, Gurdeep P Referring Unavailable COOK, Gurdeep P Admitting Unavailable ZAHRA, Gurdeep P Attending Unavailable ZAHRA, Gurdeep P Referring Unavailable ZAHRA, Gurdeep P Attending Unavailable Gurdeep SWEENEY Attending Unavailable Ayse Preciado MD Primary Care Provider Ayse Preciado MD Attending Provider Ly DOMarilyn Attending Provider [phone] Ly DOMarilyn Other Provider [phone] Marilyn Mcdonald Attending Unavailable Marilyn Mcdonald Admitting Unavailable Ayse Preciado Primary Care Unavailable Luz Flynn Admitting Unavailable Ayse Preciado Primary Care Unavailable Luz Flynn Attending Unavailable Ayse Preciado MD Primary Care Provider [phone] Allergies Allergy ClassificationReported Allergen(s)Allergy TypeDate of OnsetReaction(s) FacilitySulfonamides (antibiotic) (1 source)Sulfonamides (Antibiotic); Translations: [sulfa drugs]Drug Allergy Eruption of skin (disorder)[facility] (2 sources)Sulfamethoxazole / TrimethoprimDrug AllergyThe [facility] (20 sources)Sulfamethoxazole; Translations: [sulfamethoxazole]Drug Allergy 39-04-5650LotjmUnetvztbeFisher-[facility] (5 sources)Sulfonamides (Antibiotic); Translations: [Sulfa (Sulfonamide Antibiotics)]Allergy to tksxuaauu38-61-5150OrgokJledneupxFisher-[facility] (20 sources)Trimethoprim; Translations: [trimethoprim]Drug Cniuphx60-28-8666 [facility] (3 sources)Sulfonamides (Antibiotic); Translations: [sulfa drugs]Drug allergy Eruption of skin (disorder)[facility] (18 sources)Sulfamethoxazole / TrimethoprimDrug Hbkckct00-37-6699Z[facility] Work Phone: (18 sources)Sulfonamides (Antibiotic)Drug Omudbcr23-43-8499PjveMVCZ Healthcare Work Phone: Medications Current Medications MedicationDrug Class(es)DatesSig (Normalized)Sig (Original)amLODIPine 10 mg oral tablet (20 sources)Dihydropyridine Calcium Channel BlockerStart: 02-01-2024 End: 59-57-0556dhoe 1 tablet by mouth once dailyamLODIPine (Norvasc) 10 MG tablet Take 10 mg by mouth Daily 02/01/2024 ActiveStart: 12-15-2023 End: 70-86-0444scxs 1 tablet by mouth once dailyAmlodipine 5 mg tablet Discontinued 5 MG PO Daily 90 January 10, 2024 8:42am February 01, 2024 2:59pm ciprofloxacin 500 mg oral tablet (2 sources)Quinolone AntimicrobialStart: 14-53-9108Rinao 500 mg Tab See Instructions, Take 1 tab day prior to procedure and 1 tab day of procdure - aft erwards, # 2 tab(s), Refills(s) 0, Pharmacy: [facility]/pharmacy #[id number] Start Date: 01/29/24 Status: Orderedlosartan potassium 50 mg oral tablet (20 sources)Angiotensin 2 Receptor BlockerStart: 03-11-2024 End: 35-88-0081rcog 1 tablet by mouth once dailyLosartan 50 mg tablet Discontinued 0 .ROUTE .COMPLEX 90 June 25, 2024 4:40pm January 27, 2025 4 :41pm TAKE 1 TABLET BY MOUTH EVERY DAYStart: 14-25-2957bufs 1 tablet by mouth once dailyLosartan Active 0 .ROUTE .COMPLEX 90 March 11, 2024 9:17am TAKE 1 TABLET BY MOUTH EVERY DAYStart: 11-16-2023 End: 57-53-6906stuz 1 tablet by mouth once dailylosartan (Cozaar) 50 MG tablet Take 50 mg by mouth Daily 12/11/2023 ActiveStart: 10-23-2023 End: 90-91-6659fvvv 1 tablet by mouth once dailyLosartan 25 mg tablet Discontinued 25 MG PO Daily November 14, 2023 7:40pm November 16, 2023 3:11pm Completed/Discontinued Medications MedicationDrug Class(es)DatesSig (Normalized)Sig (Original)fluticasone furoate 0.0275 mg/actuat metered dose nasal spray (5 sources)CorticosteroidStart: 10-18-2023 End: 59-84-3594uyfz 2 spray(s) nasal route once daily, then take 1 spray(s) nasal route once dailyFluticasone Furoate (Flonase Sensimist) 27.5 mcg/actuation spray,suspension Discontinued 2 SPRAY INTRANASAL Daily October 18, 2023 1:00am April 08, 2025 1:55pm FreeTextSi sprays (1 spray in each nostril) Nasally Once a day; Note: Source Status: Start; Refills: 1; Provider: Samuel Esposito Problems Active Problems Problem ClassificationProblemDateDocumented DateEpisodic/ChronicAbdominal pain (20 sources)Epigastric pain; Translations: [Epigastric pain]Onset: 04-18-2024 64-43-8032FoywyahvBhssetir reactions (3 sources)Atopic aksnyvkhmq97-52-8032LhvwleaKmmkwtwb of urinary tract (6 sources)Kidney stone; Translations: [Calculus of kidney]Onset: 02-07-2024 EpisodicDeficiency and other anemia (3 sources)Iron deficiency fvcfip75-15-9080XullwbgaAqpujvwtg hypertension (9 sources)Hypertensive disorder; Translations: [Essential (primary) hypertension]72-81-6479GfgllvzDatdqcajhsciq symptoms and ill-defined conditions (2 sources)Unspecified urinary incontinence; Translations: [Urinary incontinence]Onset: 24-83-0152DdwxwviZmxyjdlgqlj deficiencies (3 sources)Iron dhgcbossyf42-15-8731McpoffxfIppdk diseases of kidney and ureters (1 source)Urinary tract obstruction; Translations: [Hydronephrosis with renal and ureteral calculous obstruction]Onset: 01-99-4621IqyvhofgEdugn female genital disorders (2 sources)Other specified noninflammatory disorders of uterus; Translations: [Other specified symptoms associated with female genital organs]02-01-2024 EpisodicOther nutritional; endocrine; and metabolic disorders (3 sources)Body mass index 30+ - rsulorm69-02-2534AgqyowbHtzqh nutritional; endocrine; and metabolic disorders (3 sources)Morbid ijnyodz91-63-7678IpjttlsKovxn screening for suspected conditions (not mental disorders or infectious disease) (9 sources)Encounter for screening mammogram for malignant neoplasm of breast; Translations: [Patient encounter status]Onset: 39-46-0668GongdxugSosth skin disorders (3 sources)Trichilemmal yrwz38-15-5134KillcxfbVmkkkcbhi; thrombophlebitis and thromboembolism (13 sources)Phlebitis and thrombophlebitis of superficial vessels of right lower extremity; Translations: [Phlebitis and thrombophlebitis of superficial vessels of left lower extremity]Onset: 37-82-6283MfmirmemLbnmunew codes; unclassified (1 source)Family history of leukemia; Translations: [FAMILY HISTORY OF LEUKEMIA] Onset: 21-51-6529CxzuowrkGdcxnstj codes; unclassified (3 sources)Family history of diabetes aiieyrrd65-13-7617JbbrjceqZkwcxelfyqom (4 sources)Patient encounter status; Translations: [Z12.11 - Encounter for screening for malignant neoplasm ofcolon]Varicose veins of lower extremity (10 sources)Varicose veins of bilateral lower extremities with pain; Translations: [Varicose veins of bilaterallower limbs]Onset: 68-27-5090Vquoegwc Past or Other Problems Problem ClassificationProblemDateDocumented DateEpisodic/ChronicOther aftercare (20 sources)Surgical follow-up; Translations: [Encounter for follow-up examination after completed treatment for conditions other than malignant neoplasm]Onset: 158655-69-2972GqxdnrxxWvgjf connective tissue disease (4 sources)Other specified soft tissue disorders; Translations: [OTHER SPEC SOFT TISSUE DISORDERS]Onset: 13-99-3821DwtnrgphWitnd female genital disorders (20 sources)Mass of uterus; Translations: [Other specified noninflammatory disorders of uterus]Onset: 993567-02-7206AehziweiQmhbj female genital disorders (19 sources)Enlarged uterus; Translations: [Hypertrophy of uterus]Onset: 130318-72-5416OlcyesckMewao female genital disorders (2 sources)Female genital organ symptoms; Translations: [Pelvic pressure in female]Onset: 441713-63-9713LsqnqowqDkegsvzlycos (1 source)Obstructive aijkntocafftiu68-50-3392 Results Test NameValueInterpretationReference RangeFacilityPathology Request for Lab Corpon 10-33-4632Vksfxkwlw Request for Lab CorpNormalThSt. Luke's [facility] Physician GroupComment on above:Order Comment: GI SPECIMENResult Comment: See report. Scanned copy available in EMR. PERFORMED BY: [facility] [address] [place] [address] PATHOLOGIST NOISE ABATEMENT ENGINEER CARMEN RYAN M.D.Performed By: #### PATH TO [facility] #### [facility] [address] [place] [address] USABasophils Auto (Bld) [#/Vol]Ordered By: Ayse Preciado on 76-34-2708Hrcttdzhf (Bld) [#/Vol]0.1 10 3/uL0.0-0.1FProtestant Deaconess HospitalBasophils/100 WBC Auto (Bld)Ordered By: Ayse Preciado on 02-12-2025 Basophils/100 WBC (Bld)1.1 %0.2-2.0[facility] HospitalCholesterol in LDL Calc [Mass/Vol]Ordered By: Ayse Preciado on 82-03-5696Vooebhifbtg in LDL [Mass/Vol]157.0 mg/dLBarberton Citizens HospitalComment on above:<100 mg/dl GMIODUA996-761 mg/dl NEAR OR ABOVE LWNRRLF997-929 mg/dl BORDERLINE MCOK515-386 mg/dl HIGH>190 mg/dl VERY HIGHCholesterol in VLDL Calc [Mass/Vol] Ordered By: Ayse Preciado on 47-31-5237Oyesmbmwbrj in VLDL [Mass/Vol]29.0 mg/dL [facility] HospitalEosinophils/100 WBC Auto (Bld)Ordered By: Ayse Preciado on 46-65-3914Aexbhhgyvvb/100 WBC (Bld)3.2 %0.9-7.0[facility] HospitalErythrocyte distribution width Auto (RBC) [Ratio]Ordered By: Ayse Preciado on 37-48-6389Ytwjiujpxis distribution width (RBC) [Ratio]12.3 % 11.0-15.0[facility] HospitalEstimated glomerular filtration rate (GFR) non- AmericanOrdered By: Ayse Preciado on 04-18-5488RBD/1.73 sq M.predicted among non-blacks MDRD (S/P/Bld) [Vol rate/Area]mL/min/{1.73_m2}>=60 mL/min/1.73m 2FProtestant Deaconess HospitalGlobulin Calc (S) [Mass/Vol] Ordered By: Ayse Preciado on 00-47-3648Dkhbpemb (S) [Mass/Vol]3.6 g/dLBarberton Citizens HospitalHematocrit Auto (Bld) [Volume fraction]Ordered By: Ayse Preciado on 90-55-9969Qfvnxwbfwb (Bld) [Volume fraction]36.8 %36.0-48.0[facility] HospitalHemoglobin [Mass/volume] in BloodOrdered By: Ayse Preciado on 18-04-1512Hyarcxtzdj (Bld) [Mass/Vol]12.9 g/dL12.0-16.0[facility] HospitalLaboratory - Chemistry and Chemistry - challengeOrdered By: Ayse Samuel on 78-17-9717Ugzhwra [Mass/Vol]3.8 g/dL3.4-5.0[facility] HospitalALP [Catalytic activity/Vol]80 U/M40-482LlyfntmksBarberton Citizens Hospital ALT [Catalytic activity/Vol]38 U/R05-00PbqwxcnymBarberton Citizens HospitalAST [Catalytic activity/Vol]21 U/S29-28GdhnvdbaeBarberton Citizens HospitalBilirubin [Mass/Vol]0.4 mg/dL0.2-1.0[facility] HospitalCalcium [Mass/Vol]9.1 mg/dL8.5-10.1FProtestant Deaconess HospitalChloride [Moles/Vol]105 mmol/L 98-107Bar[facility] HospitalCholesterol [Mass/Vol]237 mg/dLHigh<=200 [facility] HospitalCholesterol in HDL [Mass/Vol]51 mg/dL40-60 [facility] HospitalComment on above:> or =60 mg/dl - LOW CARDIOVASCULAR RISK<40 mg/dl - HIGH CARDIOVASCULAR RISKCO2 [Moles/Vol]28.5 mmol/L21.0-32.0[facility] HospitalCreatinine [Mass/Vol]0.68 mg/dL 0.55-1.02[facility] HospitalGFR/1.73 sq M.predicted MDRD (S/P/Bld) [Vol rate/Area]mL/min/{1.73_m2}>=60 mL/min/1.73m 2FProtestant Deaconess HospitalGlucose [Mass/Vol]111 mg/eIZwkc07-175RwwjtwdkoBarberton Citizens Hospital Potassium [Moles/Vol]3.9 mmol/L3.5-5.1FProtestant Deaconess HospitalProtein [Mass/Vol]7.4 g/dL6.4-8.2FOur Lady of Mercy Hospitalodium [Moles/Vol]144 mmol/P506-040JzympobycBarberton Citizens HospitalTriglyceride [Mass/Vol]145 mg/dL <=150Bar[facility] HospitalUrea nitrogen [Mass/Vol]20.0 mg/dLHigh 7.0-18.0[facility] HospitalUrea nitrogen/Creatinine [Mass ratio] 29.4 mg/mgBarberton Citizens HospitalLaboratory - Hematology and Cell countsOrdered By: Ayse Preciado on 15-66-0900Sgetgjfh granulocytes/100 WBC (Bld) 0.2 %0.0-0.5FProtestant Deaconess HospitalLeukocytes [#/volume] corrected for nucleated erythrocytes in Blood by Automated counOrdered By: Ayse Preciado on 30-01-0505XGQ corrected for nucl RBC Auto (Bld) [#/Vol]5.6 10 3/uL4.0-11.0 [facility] HospitalLymphocytes Auto (Bld) [#/Vol]Ordered By: Ayse Preciado on 11-59-6125Spvmhdjhkoh (Bld) [#/Vol]1.6 10 3/uL1.2-3.8[facility] HospitalLymphocytes/100 WBC Auto (Bld)Ordered By: Ayse Preciado on 41-85-7997Bhaxyaqdajo/100 WBC (Bld)28.7 %20.5-60.0[facility] Auto (RBC) [Entitic mass]Ordered By: Ayse Preciado on 40-48-0214BBA (RBC) [Entitic mass]29.5 pg26.7-34.0Access Hospital DaytonHC Auto (RBC) [Mass/Vol]Ordered By: Ayse Preciado on 10-68-5127OOPT (RBC) [Mass/Vol]35.1 g/dL29.9-35.2FProtestant Deaconess HospitalMCV Auto (RBC) [Entitic vol] Ordered By: Ayse Preciado on 40-11-5362BEN (RBC) [Entitic vol]84.2 fL81.0-99.0 [facility] HospitalMicroalbumin [Mass/volume] in UrineOrdered By: Ayse Preciado on 08-54-4456Wvzepfp DL <= 20 mg/L (U) [Mass/Vol]mg/dL<=30.0 [facility] HospitalMonocytes Auto (Bld) [#/Vol]Ordered By: Ayse Preciado on 80-55-6931Fvjjupyjv (Bld) [#/Vol]0.5 10 3/uL0.3-0.8[facility] HospitalMonocytes/100 WBC Auto (Bld)Ordered By: Ayse Preciado on 02-12-2025 Monocytes/100 WBC (Bld)9.2 %1.7-12.0[facility] HospitalNeutrophils Auto (Bld) [#/Vol]Ordered By: Ayse Preciado on 58-93-7365Hwvhpjiqhqj (Bld) [#/Vol]3.2 10 3/uL1.4-6.5FProtestant Deaconess HospitalNeutrophils/100 WBC Auto (Bld)Ordered By: Ayse Preciado on 65-19-9056Usivarikhhn/100 WBC (Bld)57.6 % 43.0-75.0[facility] HospitalNo Panel InformationOrdered By: Ayse Preciado on 48-68-4151Miawvegodot # (Auto)0.2 10 3/uL0.0-0.7FProtestant Deaconess HospitalImmature Granulocyte # (Auto)0.01 10 3/uL0.00-0.03[facility] HospitalUrine Random Yjjmmxscwp517.55 mg/dL20.00-300.00[facility] HospitalPlatelet mean volume Auto (Bld) [Entitic vol]Ordered By: Ayse Preciado on 23-58-3733Cucrxjjr mean volume (Bld) [Entitic vol]10.0 fL 9.5-13.5FProtestant Deaconess HospitalPlatelets Auto (Bld) [#/Vol]Ordered By: Ayse Preciado on 74-28-0680Lgtzalxyu (Bld) [#/Vol]260 10 3/yA245-071UmufypnfrBarberton Citizens HospitalRBC Auto (Bld) [#/Vol]Ordered By: Ayse Preciado on 60-92-6901YFG (Bld) [#/Vol]4.37 10 6/uL4.20-5.40[facility] Hospitalerum or plasma albumin/globulin mass ratioOrdered By: Ayse Preciado on 25-06-9749Tnvwley/Globulin [Mass ratio]1.1 {ratio}[facility] Hospitalerum or plasma anion gap determinationOrdered By: Ayse Preciado on 47-85-1780Yrsan gap [Moles/Vol]14.4 mmol/LFOur Lady of Mercy Hospitalerum or plasma total cholesterol/high density lipoprotein (HDL) cholesterol mass rat Ordered By: Ayse Preciado on 26-58-6816Tniryihijub.total/Cholesterol in HDL [Mass ratio]4.6 {ratio}[facility] HospitalComment on above:3.3 - 4.4 LOW RISK4.4 - 7.1 AVERAGE RISK7.1 - 11.0 MODERATE RISK>11.0 HIGH RISKAmbulatory Visit Summaryon 84-26-0365Gssaaqwvny Visit SummaryAmbulatory Visit Summary LIZ KING :1965 Visit Date:09/03/2024 Ambulatory Visit Instructions Your Diagnosis Ureteral stone with hydronephrosis History of kidney stones Urinary incontinence Tests Performed XR Abdomen 1 View -- Results Pending -- Please visit your patient portal for your results or contact your primary care physician. Your Care Team Attending Physician - Gurdeep SWEENEY MD Primary Care Physician - AYSE PRECIADO MD This Is Your Medications List [...] ZAHRA DONNELLY, Gurdeep Henson, URL When: Where: [address] [place] [id number]- Medications What How Much When Instructions Unchanged ciprofloxacin (Cipro 500 mg Tab) See instructions Take 1 tab day prior to procedure and 1tab day of procdure - afterwards Unchanged amlodipine [...] about 300 mg of calcium at each meal.Foods that contain 200???500 mg of calcium a serving include: ? 8 oz (237 mL) of milk, zohtxdy-obknwurxzhsi-gsege milk, and calcium- fortifiedfruit juice. Calcium-fortified means that calcium has been [...] the table and allow each person to addtheir own salt to taste. ??? Use vegetable protein, such as beans, textured vegetable protein (TVP), or tofu, instead of meat inpasta, casseroles, and soups. Meal planning ??? Eat less salt, if told by your dietitian. To do this: ? Avoid eating processed or pre-made food. ? (more content not included)...[facility] HospitalUrology Office/Clinic Noteon 66-46-6238Josiawz Office/Clinic NoteUrology Office/Clinic Note Chief Complaint 6month F/U w/kub HPI Staff New Pt to our office. 6 month follow up w/KUB. Pt was seen at [facility] on 01/25/24 due to obstructing stone 7mm [...] fluids and simply follow-up with the x-ray altagracia year. Follow-up With When Contact Information Gurdeep SWEENEY MD, URL [address] [place] [phone]- Additional Instructions: 1 yr with KUB Patient [...] with voice recognition artificial intelligence software, specifically Loud3r, ViFlux and or Tunaspot. Substitutions may have occurred due to the inherent limitations of voice recognition and artificial intelligence software. Problem List/Past Medical History Ongoing BMI 32.0-32.9,adult History of kidney stones Iron deficiency anemia Pilar cysts Urinary incontinence Varicose veins of legs Historical (more content not included)...Doctors HospitalComment on above: Result Comment: Electronically Signed By: Gurdeep SWEENEY MD\.br\Date and Time Signed: 09/03/24 15:09 EST\.br\Electronically Co-Signed By: Alexandrea Landon\Date and Time Co-Signed: 09/03/24 15:07 ESTALL CBC WITH AUTO DIFFon 25-88-8389QXATCECMN ABSOLUTE CMCX5DBUL HealthcareBasophils/100 WBC (Bld)0.1 %Low 0.2 - 2.0 %NOMS HealthcareEosinophils/100 WBC (Bld)0 %Low0.9 - 7.0 %[facility] SystemErythrocyte distribution width (RBC) [Ratio]11.9 %11.0 - 15.0 %[facility] HealthcareHematocrit (Bld) [Volume fraction]34.5 %Low36.0 - 48.0 %[facility] SystemHemoglobin (Bld) [Mass/Vol]11.9 g/dLLow12.0 - 16.0 g/dLSaint John's Health System IMMATURE GRANULOCYTES ABS AUTO0.04HighSaint John's Health SystemImmature granulocytes/100 WBC (Bld)0.3 %0.0 - 0.5 %[facility] SystemInterpretation and review of laboratory resultsAbnormalSaint John's Health SystemLYMPHOCYTES ABSOLUTE AUTO1.1LowNFreeman Neosho Hospital Lymphocytes/100 WBC (Bld)8.7 %Low20.5 - 60.0 %[facility] CenterH (RBC) [Entitic mass]29 pg26.7 - 34.0 pgSt. Joseph Medical CenterHC (RBC) [Mass/Vol]34.5 g/dL29.9 - 35.2 g/dLSt. Joseph Medical CenterV (RBC) [Entitic vol]83.9 fL81.0 - 99.0 fLSaint John's Health System MONOCYTES ABSOLUTE LKXH1TmmaIFFH HealthcareMonocytes/100 WBC (Bld)7.4 %1.7 - 12.0 %[facility] SystemNEUTROPHILS ABSOLUTE AUTO10.9HighNOCenterpoint Medical Center Neutrophils/100 WBC (Bld)83.5 %High43.0 - 75.0 %[facility] SystemPlatelet mean volume (Bld) [Entitic vol]10.3 fL9.5 - 13.5 fLSaint John's Health SystemTB EO #0NOMS [facility] HospitalTB [id number] [facility] RBC4.11LowNOSt. [facility]'s Hospital LHO41Incf [facility] SystemCLINISYNCNFreeman Neosho HospitalALL CBC WITH AUTO DIFFon 07-24-2024 BASOPHILS ABSOLUTE AUTO0.1NOMS HealthcareBasophils/100 WBC (Bld)0.8 %0.2 - 2.0 % [facility] SystemEosinophils/100 WBC (Bld)2.4 %0.9 - 7.0 %[facility] Erythrocyte distribution width (RBC) [Ratio]11.9 %11.0 - 15.0 %[facility] Hematocrit (Bld) [Volume fraction]39.5 %36.0 - 48.0 %[facility] SystemHemoglobin (Bld) [Mass/Vol]13.4 g/dL12.0 - 16.0 g/dLSaint John's Health SystemIMMATURE GRANULOCYTES ABS AUTO0.02NOMS [facility] HospitalImmature granulocytes/100 WBC (Bld)0.3 %0.0 - 0.5 % [facility] SystemLYMPHOCYTES ABSOLUTE AUTO1.6NOMS [facility] HospitalLymphocytes/100 WBC (Bld)26 %20.5 - 60.0 %[facility] (RBC) [Entitic mass]28.7 pg26.7 - 34.0 pgSaint John's Health SystemMCHC (RBC) [Mass/Vol]33.9 g/dL29.9 - 35.2 g/dLSaint John's Health System MCV (RBC) [Entitic vol]84.6 fL81.0 - 99.0 fLSaint John's Health SystemMONOCYTES ABSOLUTE AUTO0.5NOMS HealthcareMonocytes/100 WBC (Bld)8.8 %1.7 - 12.0 %[facility] NEUTROPHILS ABSOLUTE AUTO3.8NOMS [facility] HospitalNeutrophils/100 WBC (Bld)61.7 %43.0 - 75.0 %[facility] SystemPlatelet mean volume (Bld) [Entitic vol]9.8 fL9.5 - 13.5 fL [facility] SystemTB EO #0.2NOMS [facility] HospitalTB [id number] [facility] RBC4.67 [facility] WBC6.2NOMS [facility] HospitalCLINISYNCNFreeman Neosho HospitalLon 07-24-2024L Specimen: [id number] Received: 07/24/24 Status: ERIC Aguirre Num: [id number] Spec Type: Surgical Subm Dr: Luz Flynn Tissues: A Uterus w/ or w/o tubes ovaries except neoplastic or prolap (UTERUS,CERVIX, Procedures: Jan/Perez L5 Age/ Patient Sex Location Account Attending Physician Liz King 59/F LABELL [id number] Luz Flynn SPEC NUM: [id number] RECD: 07/24/24 STATUS: ERIC AGUIRRE NUM: [id number] MAURY: 07/24/[address]: Luz Flynn ENTERED: 07/24/[address]: Maciej,Lab SPEC TYPE: Surgical DEPT: NAVYA BENJAMIN ENTERED BY: [id number] RECV BY: [id number] ORDERED: , Gross/Micro L5 ORDERED: , Gross/Micro [...] 8.5 cm anterior to posterior and 7 Specimen: [id number] Received: 07/24/24 Status: ERIC Aguirre Num: [id number] Spec Type: Surgical Subm Dr: Luz Flynn Tissues: A Uterus w/ or w/o tubes ovaries except neoplastic or prolap (UTERUS,CERVIX, Procedures: , Gross/Micro L5 Patient: Liz King [id number] (Continued) Specimen: [id number] Received: 07/24/24 (Continued) Gross Description (Continued) Signed (signature on file) Floyd Ochoa MD 07/26/241625 Specimen: [id number] Received: 07/24/24 Status: ERIC Aguirre Num: [id number] Spec Type: Surgical Subm Dr: Luz Flynn Tissues: A Uterus w/ or w/o tubes ovaries except neoplastic or prolap (UTERUS,CERVIX, Procedures: Jan/Perez L5 Patient: Liz King [id number] (Continued) Specimen: [id number] Received: 07/24/24 (Continued) Gross Description (Continued) cm [...] serosa is candelaria- pur (more content not included)...NormalThe [facility] Physician GroupALL TYPE AND SCREENon 46-67-5970BOO and Rh group Nom (Bld)Blood group A Rh(D) negative [facility] CenterISYThe [facility] CBC WITH AUTO DIFFon 87-49-2003AVYCYMXXY ABSOLUTE AUTO0.1NOMS HealthcareBasophils/100 WBC (Bld)0.8 %0.2 - 2.0 %[facility] Eosinophils/100 WBC (Bld)2.2 %0.9 - 7.0 %[facility] Health SystemErythrocyte distribution width (RBC) [Ratio]12.1 %11.0 - 15.0 %[facility] HealthcareHematocrit (Bld) [Volume fraction]37 %36.0 - 48.0 %NOM HealthcareHemoglobin (Bld) [Mass/Vol]12.8 g/dL 12.0 - 16.0 g/dLNOCenterpoint Medical CenterIMMATURE GRANULOCYTES ABS AUTO0.02[facility] Healthcare Immature granulocytes/100 WBC (Bld)0.3 %0.0 - 0.5 %NOM HealthcareLYMPHOCYTES ABSOLUTE AUTO1.7NOMS HealthcareLymphocytes/100 WBC (Bld)29.1 %20.5 - 60.0 %[facility] Health SystemMCH (RBC) [Entitic mass]29.3 pg26.7 - 34.0 pgNOPike County Memorial HospitalHC (RBC) [Mass/Vol]34.6 g/dL29.9 - 35.2 g/dLSt. Joseph Medical CenterV (RBC) [Entitic vol]84.7 fL 81.0 - 99.0 fLSaint John's Health SystemMONOCYTES ABSOLUTE AUTO0.5NOCenterpoint Medical Center Monocytes/100 WBC (Bld)8.2 %1.7 - 12.0 %[facility] SystemNEUTROPHILS ABSOLUTE AUTO 3.6NOMS HealthcareNeutrophils/100 WBC (Bld)59.4 %43.0 - 75.0 %[facility] Platelet mean volume (Bld) [Entitic vol]10.2 fL9.5 - 13.5 fLSaint John's Health SystemTBH EO #0.1NOMS HealthcareTBH [id number] [facility] HospitalTB RBC4.37NOMS HealthcareTB WBC 6NOMS HealthcareCLINISYNCNOMS HealthcareECG 12-LEADon 62-01-4766LtuRepublic, [place] [address] Electrocardiograph Report Signed Patient: LIZ KING MR#: [id number] : 1965 Acct:[id number] Age/Sex: 59 / F ADM Date: 07/08/24 Loc: PST Attending Dr: Luz Flynn D.O. Ordering Physician: Luz Flynn D.O. Date of Service: 07/08/24 Procedure(s): ECG 12 lead Accession Number(s): [id number] cc: The [facility] Test Date: 2024-07-08 Pat Name: LIZ KING Department: Room: - Gender: Female Director Of Contracts: : 1965 Requested By: LUZ FLYNN Order Number: [id number] Reading MD: RAMON LANDERS Measurements Intervals [place] Rate: 64 P: 57 GA: 173 QRS: 26 QRSD: 96 T: 29 QT: 399 QTc: 413 Interpretive Statements SINUS RHYTHM Nonspecific ST/T wave changes Compared to ECG 10/23/2023 15:35:59 Electronically Signed On 07-08-2024 19:52:55 EST by RAMON LANDERS Dictated By: Ramon Landers D.O. Signed By: 07/08/241952 DD/ 26 TD/TT: Survey Research Associate:TBHRadiology, Radiologist, - 07/09/2024 [place] [address] Electrocardiograph Report Signed Patient: LIZ KING MR#: [id number] : 1965 Acct:[id number] Age/Sex: 59 / F ADM Date: 07/08/24 Loc: PST Attending Dr: Luz Flynn D.O. Ordering Physician: Luz Flynn D.O. Date of Service: 07/08/24 Procedure(s): ECG 12 lead Accession Number(s): [id number] cc: [facility] Test Date: 2024-07-08 Pat Name: LIZ KING Department: Room: - Gender: Female Director Of Contracts: : 1965 Requested By: LUZ FLYNN Order Number: [id number] Reading MD: RAMON LANDERS Measurements Intervals [place] Rate: 64 P: 57 GA: 173 QRS: 26 QRSD: 96 T: 29 QT: 399 QTc: 413 Interpretive Statements SINUS RHYTHM Nonspecific ST/T wave changes Compared to ECG 10/23/2023 15:35:59 Electronically Signed On 07-08-2024 19:52:55 EST by RAMON LANDERS Dictated By: Ramon Landers D.O. Signed By: 07/08/241952 DD/ 1427 TD/TT: Survey Research Associate: VLAD CastilloRadiology Study observation (narrative)[facility]-HRI HOSPITALDanielle [facility] HospitalECG 12-LEAD Ordered By: Radiologist Radiology on 84-72-5342YALYSaint John's Health System Work Phone: mm TOMOSYNTHESIS SCREENING BIon 32-12-[address] [address] Mammography Report Signed Patient: LIZ KING MR#: [id number] : 1965 Acct:[id number] Age/Sex: 59 / F ADM Date: 06/04/24 Loc: MAMMO Attending Dr: Luz Flynn D.O. Ordering Physician: Luz Flynn D.O. Results: Date of Service: 06/04/24 Follow Up: Procedure(s): MM tomosynthesis screening BI Accession Number(s): [id number] cc: Ayse Preciado M.D.; Luz Flynn D.O. Patient Name: LIZ KING MR#: [id number] : 1965 Exam Date: 06/04/2024 Ordering Doctor: DR Luz Flynn . RADIOLOGY REPORT PROCEDURE: MM TOMOSYNTHESIS [...] leukemia cancer at age 80. LOCATION: [facility] BREAST COMPOSITION: The breasts are heterogeneously dense,which [...] PALPABLE LUMP SHOULD BE BIOPSIED. Dictated by: Anahi Mcnulty MD on 06/04/2024 at 15:05 Approved by: Anahi Mcnulty MD on 06/04/2024 at 15:09 Dictated By: Anahi Mcnulty M.D. Signed By: 06/04/24 1510 DD/ 1509 TD/TT: Survey Research Associate:TBHRadiology, RadiologistMD - 06/04/2024 [place] [address] Mammography Report Signed Patient: LIZ KING MR#: [id number] : 1965 Acct:[id number] Age/Sex: 59 / F ADM Date: 06/04/24 Loc: MAMMO Attending Dr: Luz Flynn D.O. Ordering Physician: Luz Flynn D.O. Results: Date of Service: 06/04/24 Follow Up: Procedure(s): MM tomosynthesis screening BI Accession Number(s): [id number] cc: Ayse Preciado M.D.; Luz Flynn D.O. Patient Name: LIZ KING MR#: [id number] : 1965 Exam Date: 06/04/2024 Ordering Doctor: DR Luz Flynn . RADIOLOGY REPORT PROCEDURE: MM TOMOSYNTHESIS [...] leukemia cancer at age 80. LOCATION: [facility] BREAST COMPOSITION: The breasts are heterogeneously dense,which [...] PALPABLE LUMP SHOULD BE BIOPSIED. Dictated by: Anahi Mcnulty MD on 06/04/2024 at 15:05 Approved by: Anahi Mcnulty MD on 06/04/2024 at 15:09 Dictated By: Anahi Mcnulty M.D. Signed By: 06/04/24 1510 DD/ 1509 TD/TT: Survey Research Associate: [facility] SystemRadiology Study observation (narrative)[facility] TOMOSYNTHESIS SCREENING BIOrdered By: Radiologist Radiology on 42-02-1957EMYWSaint John's Health System Work Phone: all CBC WITH AUTO DIFFon 87-83-1507NRSKFZKSE ABSOLUTE AUTO0.0NOMS HealthcareBasophils/100 WBC (Bld)0.8 %0.2 - 2.0 %[facility] Eosinophils/100 WBC (Bld)3.3 %0.9 - 7.0 %[facility] SystemErythrocyte distribution width (RBC) [Ratio]12.1 %11.0 - 15.0 %[facility] SystemHematocrit (Bld) [Volume fraction]36.5 %36.0 - 48.0 %[facility] SystemHemoglobin (Bld) [Mass/Vol]13.1 g/dL 12.0 - 16.0 g/dLSaint John's Health SystemIMMATURE GRANULOCYTES ABS AUTO0.01NOMS [facility] Immature granulocytes/100 WBC (Bld)0.2 %0.0 - 0.5 %[facility] SystemInterpretation and review of laboratory resultsAbnormalNONE HealthcareLYMPHOCYTES ABSOLUTE AUTO1.8NOMS HealthcareLymphocytes/100 WBC (Bld)33.8 %20.5 - 60.0 %[facility] SystemMCH (RBC) [Entitic mass]29.8 pg26.7 - 34.0 pgNOCenterpoint Medical CenterMCHC (RBC) [Mass/Vol]35.9 g/fBPlik44.9 - 35.2 g/dLSaint John's Health SystemMCV (RBC) [Entitic vol] 83.1 fL81.0 - 99.0 fLSaint John's Health SystemMONOCYTES ABSOLUTE AUTO0.5NOMS Healthcare Monocytes/100 WBC (Bld)10.0 %1.7 - 12.0 %NOM HealthcareNEUTROPHILS ABSOLUTE AUTO2.7NOMS HealthcareNeutrophils/100 WBC (Bld)51.9 %43.0 - 75.0 %[facility] SystemPlatelet mean volume (Bld) [Entitic vol]10.0 fL9.5 - 13.5 fLNOMS HealthcareTBH EO #0.2NOMS HealthcareTBH SIZ054MUNG HealthcareTBH RBC4.39NOMS HealthcareTBH WBC5.2NOMS HealthcareCLINISYNCNOMS HealthcareBasophils Auto (Bld) [#/Vol]on 49-93-0038Ennuptqif (Bld) [#/Vol]0.0 10 3/uL0.0-0.1FProtestant Deaconess HospitalBasophils/100 WBC Auto (Bld)on 47-23-9436Vwegkcnya/100 WBC (Bld) 0.8 %0.2-2.0[facility] HospitalEosinophils/100 WBC Auto (Bld)on 04-40-5389Velkgtplzxs/100 WBC (Bld)3.3 %0.9-7.0[facility] Erythrocyte distribution width Auto (RBC) [Ratio]on 52-62-5482Ebkgvxaozfb distribution width (RBC) [Ratio]12.1 %11.0-15.0[facility] Hematocrit Auto (Bld) [Volume fraction]on 36-15-8988Tlzqnzlatj (Bld) [Volume fraction]36.5 %36.0-48.0[facility] HospitalHemoglobin [Mass/volume] in Bloodon 66-49-2955Qlwkmdprto (Bld) [Mass/Vol]13.1 g/dL12.0-16.0 [facility] HospitalLaboratory - Hematology and Cell countson 36-98-8681Rxavefch granulocytes/100 WBC (Bld)0.2 %0.0-0.5FProtestant Deaconess HospitalLeukocytes [#/volume] corrected for nucleated erythrocytes in Blood by Automated counon 26-98-8045JFT corrected for nucl RBC Auto (Bld) [#/Vol]5.2 10 3/uL4.0-11.0[facility] HospitalLymphocytes Auto (Bld) [#/Vol]on 13-90-1527Evdeefuhays (Bld) [#/Vol]1.8 10 3/uL1.2-3.8Fire[facility] Regional Medical CenterLymphocytes/100 WBC Auto (Bld)on 04-11-2024 Lymphocytes/100 WBC (Bld)33.8 %20.5-60.0[facility] Hospital DaytonH Auto (RBC) [Entitic mass]on 78-19-0865ARV (RBC) [Entitic mass]29.8 pg26.7-34.0 [facility] HospitalMCHC Auto (RBC) [Mass/Vol]on 18-39-5927BBOB (RBC) [Mass/Vol]35.9 g/hDZthd73.9-35.2FProtestant Deaconess HospitalMCV Auto (RBC) [Entitic vol]on 56-75-2999BYK (RBC) [Entitic vol]83.1 fL81.0-99.0[facility] HospitalMonocytes Auto (Bld) [#/Vol]on 78-34-2486Ohxyfbftr (Bld) [#/Vol]0.5 10 3/uL0.3-0.8[facility] HospitalMonocytes/100 WBC Auto (Bld)on 48-83-2441Qsubayfnk/100 WBC (Bld)10.0 %1.7-12.0[facility] HospitalNeutrophils Auto (Bld) [#/Vol]on 71-50-9587Zffijzmpewy (Bld) [#/Vol]2.7 10 3/uL1.4-6.5FProtestant Deaconess HospitalNeutrophils/100 WBC Auto (Bld)on 54-48-0559Ynldsczbpkv/100 WBC (Bld)51.9 %43.0-75.0[facility] HospitalNo Panel Informationon 73-04-5162Kxvtntrszoc # (Auto)0.2 10 3/uL0.0-0.7FProtestant Deaconess HospitalImmature Granulocyte # (Auto)0.01 10 3/uL0.00-0.03[facility] HospitalPlatelet mean volume Auto (Bld) [Entitic vol]on 88-50-0748Mqfeqrqx mean volume (Bld) [Entitic vol]10.0 fL 9.5-13.5FProtestant Deaconess HospitalPlatelets Auto (Bld) [#/Vol]on 02-11-5674Whzntnipx (Bld) [#/Vol]237 10 3/kC555-968WruoisedhBarberton Citizens HospitalRBC Auto (Bld) [#/Vol]on 01-87-2164JHF (Bld) [#/Vol]4.39 10 6/uL4.20-5.40 [facility] HospitalInpatient Patient Summaryon 74-30-6216Dflfehgqq Patient SummaryInpatient Patient Summary [address] [address] Clinical Summary Person Information Name: LIZ KING Age: 59 Years : 1965 Sex: Female PCP: AYSE PRECIADO MD Marital Status: Race: White Ethnicity: Non- or Language: Lithuanian Visit Id: Visit Reason: KIDNEY STONE Speciality: Acuity: Enc Type: Outpatient Med Service: Surgery Arrival: 02/19/2024 14:32:49 Discharge: Dispo Type: Address: [address] [place] [id number] Provider Notes: Diagnosis: Problems Active Pilar cysts [...] up: With: Address: When: Gurdeep SWEENEY [address], [address], [address] [address] Business (1) Comments: The stent [...] - Cystoscopy with Stent Removal Discharge Instructions (Custom)[facility] Intraoperative Recordon 40-66-9844Wwnf OR Intraoperative RecordMain OR Intraoperative Record IntraOp Document Type FTURO Summary Primary Physician: Gurdeep SWEENEY MD Finalized Date/Time: 02/19/24 15:19:48 Pt. Name: LIZ KING El Dougherty/Sex: 1965 Female Med Rec #: [id number] Physician: Gurdeep SWEENEY MD Financial #: [id number] Pt. Type: O Room/Bed: / Admit/Disch: 02/19/24 [...] Kimberly A Role Performed Surgeon - Primary Non Destructive Testing Supervisor - Primary Scrub - Primary Time [...] Ludy Dietrich 02/19/24 15:19 Ludy Dietrich 02/19/24 15:19[facility]Main OR Preoperative Recordon 08-41-2797Xeop OR Preoperative RecordMain OR Preoperative Record Holding Area Document Type FTURO Summary Primary Physician: Gurdeep SWEENEY MD Finalized Date/Time: 02/19/24 14:49:34 Pt. Name: LIZ KING El Dougherty/Sex: 1965 Female Med Rec #: [id number] Physician: Gurdeep SWEENEY MD Financial #: [id number] Pt. Type: O Room/Bed: / Admit/Disch: 02/19/24 14:32:49 - Institution: Case Times Holding FTURO Pre-Care Text: Verifies consent for planned procedure, identifies individual values and wishes concerning care, includes family members in perioperative teaching Secures patient's records' belongings, and valuables, maintains patient's dignity and privacy, and maintains patient confidentiality Entry 1 In Holding 02/19/24 14:46:00 Outcomes Met? Yes Last Modified By: Flip RN, Radha HIRSCH 02/19/24 14:46:31 Post-Care Text: The patient participates in decisions affecting his or her perioperative plan of care The patient'sright to privacy is maintained Surgery Checklist FTURO [...] Signed By: TORREY Castelan RN, Ruthann 02/19/24 14:49NoParkview Health [facility] Operative Reporton 29-49-6439Kqfilwxgx ReportOperative Report Patient: LIZ KING Age: 59 years [...] procedure well and was subsequently discharged home, Follow-up6 months with KUB. Consider 24-hour urine/metabolic workup prior to that visit..Doctors HospitalComment on above: Result Comment: Electronically Signed By: Gurdeep SWEENEY MD\.br\Date and Time Signed: 02/19/24 15:22 EDTOutpatient Surgery Discharge Instructionon 02-19-2024 Outpatient Surgery Discharge InstructionOutpatient Surgery Discharge Instruction [address] [address] Patient Discharge Instructions PERSON INFORMATION [...] Follow up: With: Address: When: Gurdeep SWEENEY [address] [place] [address], [address], [address] [address] Business (1) Comments: The stent [...] some pain, burning, urgency, frequency and blood tingedurine following the procedure. These symptoms usually resolve [...] to serve you. [facility] you [facility] Doctors HospitalConsultation Noteon 27-39-8691Qfpfbtpgbbde Note [id number]#1.00TIFCherrington HospitalInsurance Correspondence Officeon 51-68-7301Rhlmsuikl Correspondence [id number]#1.00TIFCherrington HospitalOperative Reporton 25-75-0926Kwisvkkag Report [id number]#1.00TIFFNormalMercy Memorial HospitalAmmonium urate crystals detection in stone by infrared spectroscopyon 72-89-4457Yfdbshhc urate crystals Infrared spectroscopy Ql (Stone)TNP.[facility] HospitalBasophils Auto (Bld) [#/Vol]on 57-85-4529Gnciryobx (Bld) [#/Vol]0.0 10 3/uL0.0-0.1FProtestant Deaconess HospitalBasophils/100 WBC Auto (Bld)on 06-07-0242Bpvbgmffb/100 WBC (Bld)0.4 %0.2-2.0[facility] HospitalCalcium bilirubinate measurementon 31-32-3478Iimywnr bilirubinate (Stone) [Mass fraction]TNP.[facility] HospitalCalcium carbonate (Stone) [Mass fraction]on 92-40-0518Ammge Calcium CarbonateTNP.[facility] HospitalCalcium hydrogen phosphate dihydrate (Stone) [Mass fraction]on 54-03-3942Rxeyi Calcium Hydrogen PhosphateTNP.[facility] Calcium oxalate dihydrate crystals detection in stone by infrared spectroscopyon 65-25-2024Wooidxj oxalate dihydrate crystals Infrared spectroscopy Ql (Stone)40 %.[facility] HospitalCalcium oxalate monohydrate crystal detection on 79-06-1649Uaqdnlu oxalate monohydrate crystals Infrared spectroscopy Ql (Stone)60 %.[facility] HospitalCalcium phosphate measurementon 11-69-0756Neivego phosphate (Stone) [Mass fraction]TNP.[facility] HospitalCalculus analysis interpretation in stoneon 92-90-4588Jfgnhyup analysis [Interp]TNP.[facility] HospitalCalculus analysis [Interp] Comment.[facility] HospitalComment on above:Calculus received wet. Wet calculi must be dried beforeanalysis, which delays reporting of results. Leaving calculiwet (such as water, saline, blood, urine) may lead tochanges in composition.Physician questions regarding Calculi Analysis contactGeary Community HospitalCo at: [phone].Calculus analysis with calculus photography interpretation in stone on 52-78-5011Efwtrzyk analysis with calculus photography [Interp]Comment. [facility] HospitalComment on above:Photograph will follow under a separate coverCellular material measurement in stone by estimated (mass/mass)on 86-50-1746Swzyradq material Est (Stone) [Mass/Mass]TNP.[facility] HospitalCholesterol [Mass/volume] in Serum or Plasmaon 01-25-2024 Cholesterol [Mass/Vol]TNP.[facility] HospitalComposition of stone on 11-56-2658Ifojuvqwjkq Nom (Stone)Comment.[facility] Comment on above:Percentage (Represents the % composition)Cystine measurementon 00-18-8530Zlmzbnq (Unsp spec) [Moles/Vol]TNP.[facility] Determination of color of calculuson 86-77-0573Impxd (Stone)Brown.[facility] HospitalEosinophils/100 WBC Auto (Bld)on 01-25-2024 Eosinophils/100 WBC (Bld)1.5 %0.9-7.0[facility] Erythrocyte distribution width Auto (RBC) [Ratio]on 03-77-4958Dcnqenoazez distribution width (RBC) [Ratio]12.5 %11.0-15.0[facility] Estimated glomerular filtration rate (GFR) non- Americanon 01-25-2024 GFR/1.73 sq M.predicted among non-blacks MDRD (S/P/Bld) [Vol rate/Area]57 mL/min/{1.73_m2}Low>=60[facility] HospitalGlobulin Calc (S) [Mass/Vol]on 19-42-6281Lssvyfyt (S) [Mass/Vol]3.5 g/dLBarberton Citizens HospitalHematocrit Auto (Bld) [Volume fraction]on 65-02-0750Durvaiuent (Bld) [Volume fraction]39.7 %36.0-48.0[facility] HospitalHemoglobin [Mass/volume] in Bloodon 00-44-0930Tmdqmssnxt (Bld) [Mass/Vol]13.6 g/dL12.0-16.0 [facility] HospitalLaboratory - Chemistry and Chemistry - challengeon 67-92-4415Jutnbjj [Mass/Vol]4.2 g/dL3.4-5.0[facility] HospitalALP [Catalytic activity/Vol]87 U/Z25-010ModpepveoBarberton Citizens HospitalALT [Catalytic activity/Vol]42 U/H19-44UtpfbqipxBarberton Citizens Hospital AST [Catalytic activity/Vol]27 U/F84-31QvxbrkgnbBarberton Citizens Hospital Bilirubin [Mass/Vol]0.4 mg/dL0.2-1.0[facility] HospitalCalcium [Mass/Vol]9.4 mg/dL8.5-10.1FProtestant Deaconess HospitalChloride [Moles/Vol] 105 mmol/K42-823IzhzrghcnBarberton Citizens HospitalCO2 [Moles/Vol]28.5 mmol/L 21.0-32.0[facility] HospitalCreatinine [Mass/Vol]1.00 mg/dL 0.55-1.02[facility] HospitalGFR/1.73 sq M.predicted MDRD (S/P/Bld) [Vol rate/Area]mL/min/{1.73_m2}>=60[facility] HospitalGlucose [Mass/Vol]141 mg/sZXzfb51-759NrwviqrywBarberton Citizens HospitalPotassium [Moles/Vol]3.9 mmol/L3.5-5.1FProtestant Deaconess HospitalProtein [Mass/Vol] 7.7 g/dL6.4-8.2FOur Lady of Mercy Hospitalodium [Moles/Vol]140 mmol/L 136-145[facility] HospitalUrea nitrogen [Mass/Vol]19.0 mg/dLHigh 7.0-18.0[facility] HospitalUrea nitrogen/Creatinine [Mass ratio] 19.0 mg/mgBarberton Citizens HospitalBilirubin Ql (U)NegativeNEGATIVE [facility] HospitalGlucose (U) [Mass/Vol]NegativeNEGATIVEBarberton Citizens HospitalKetones Ql (U)NegativeNEGATIVEBarberton Citizens HospitalpH (U)6.0 [pH]5.0-9.0[facility] Hospitalpecific gravity (U) [Rel density]>=1.231Hlgrowpk2.005-1.025[facility] Urobilinogen Qn (U)0.2 {Erum'U}/dL0.2-1.0[facility] Laboratory - Hematology and Cell countson 11-02-6306Xjeypmmr granulocytes/100 WBC (Bld)0.4 %0.0-0.5FProtestant Deaconess HospitalLaboratory - Specimen informationon 70-96-4960Pzqgbojoia (U)CLEARCLEARFProtestant Deaconess HospitalColor (U)YELLOWYELLOWBarberton Citizens HospitalLaboratory - Urinalysison 51-44-4907Myafvznkn esterase Test strip Ql (U)TRACEAbnormalNEGATIVE [facility] HospitalMucus Ql (Urine sed)NONE SEENNONE SEENBarberton Citizens HospitalNitrite Ql (U)NegativeNEGATIVEBarberton Citizens HospitalProtein Ql (U)30 mg/dLAbnormalNEG/TRACEBarberton Citizens Hospital Leukocytes [#/volume] corrected for nucleated erythrocytes in Blood by Automated counon 33-14-4556TND corrected for nucl RBC Auto (Bld) [#/Vol]7.5 10 3/uL 4.0-11.0[facility] HospitalLymphocytes Auto (Bld) [#/Vol]on 01-25-5808Sqwnmrgxqpm (Bld) [#/Vol]1.1 10 3/uLLow1.2-3.8[facility] HospitalLymphocytes/100 WBC Auto (Bld)on 22-68-9901Sumujzcdbgm/100 WBC (Bld)14.5 %Low20.5-60.0[facility] Hospital DaytonH Auto (RBC) [Entitic mass]on 39-43-1927CQL (RBC) [Entitic mass]28.8 pg26.7-34.0[facility] HospitalMCHC Auto (RBC) [Mass/Vol]on 47-86-9657IHLZ (RBC) [Mass/Vol]34.3 g/dL29.9-35.2FProtestant Deaconess HospitalMCV Auto (RBC) [Entitic vol]on 32-83-6737ZSH (RBC) [Entitic vol]83.9 fL81.0-99.0[facility] HospitalMeasurement of proportion of calculus composed of dried blood (mass/mass) on 66-36-1201Wdrem.dried (Stone) [Mass fraction]TN.[facility] HospitalMonocytes Auto (Bld) [#/Vol]on 42-84-0533Sdyjjkfui (Bld) [#/Vol]0.4 10 3/uL0.3-0.8[facility] HospitalMonocytes/100 WBC Auto (Bld)on 97-28-4558Itusanrjr/100 WBC (Bld)5.6 %1.7-12.0[facility] Neutrophils Auto (Bld) [#/Vol]on 58-57-3926Giymwxpnnuw (Bld) [#/Vol]5.9 10 3/uL 1.4-6.5FProtestant Deaconess HospitalNeutrophils/100 WBC Auto (Bld)on 00-08-5630Ynohfybljsg/100 WBC (Bld)77.6 %High43.0-75.0[facility] HospitalNewberyite crystals detection in stone by infrared spectroscopyon 09-56-6184Iqlbcyudsz crystals Infrared spectroscopy Ql (Stone)TN.[facility] HospitalNo Panel Informationon 62-20-2980Procr 2,8 DihydroxyadenineTNP.[facility] Hospitaltone Analysis Disclaimer Comment.[facility] HospitalComment on above:Calculi report will follow via computer, mail or courierdelivery.This test was developed and its performance characteristicsdetermined by [employer]. It has not been cleared or approvedby the Food and Drug Administration.Performed at: [facility] [address] [id number] Director: Jessica Morales PhD, Phone: [phone] BilirubinateTNP.[facility] Stone Calcium PalmitateTNP.[facility] Hospitalton Calcium StearateTNP.[facility] Drug or MetaboliteTNP. [facility] Hospitalton Other ConstituentTNP.[facility] Hospitaltone XanthineTNP.[facility] HospitalEosinophils # (Auto)0.1 10 3/uL0.0-0.7FProtestant Deaconess HospitalImmature Granulocyte # (Auto)0.03 10 3/uL0.00-0.03[facility] HospitalUrine BacteriaLARGE #/HPFAbnormalNONE [facility] HospitalUrine Calcium Oxalate CrystalsRAGrand Lake Joint Township District Memorial HospitalUrine Culture ReflexedYEMadison HealthUrine Occult BloodLARGEAbnormalNEGATIVEBarberton Citizens HospitalUrine Other CastsNONE SEEN #/LPFNONE [facility] HospitalUrine Other CrystalsSeen #/HPFAbnormalNone [facility] CenterUrine UQG85-75 #/HPFAbnormal0-2FProtestant Deaconess Hospital Urine Squamous Epithelial CellsFEW #/LPFAbnormalNONE/RAREBarberton Citizens HospitalUrine WBC0-2 #/HPFAbnormalNONE [facility] HospitalPlatelet mean volume Auto (Bld) [Entitic vol]on 41-68-3857Nlutbrkx mean volume (Bld) [Entitic vol]10.2 fL9.5-13.5FProtestant Deaconess Hospital Platelets Auto (Bld) [#/Vol]on 54-65-6318Alecfyutn (Bld) [#/Vol]249 10 3/uL 150-450Bar[facility] HospitalRBC Auto (Bld) [#/Vol]on 62-98-7502PMQ (Bld) [#/Vol]4.73 10 6/uL4.20-5.40L[facility] Memorial Hospitalerum or plasma albumin/globulin mass ratioon 66-63-8262Bbqcibh/Globulin [Mass ratio]1.2 {ratio}[facility] Memorial Hospitalerum or plasma anion gap determination on 86-50-5157Bwpvw gap [Moles/Vol]10.4 mmol/LFProtestant Deaconess Hospital Size [Entitic volume] of Stoneon 96-75-3079Uzje (Stone) [Entitic vol]7x2 mm. [facility] HospitalComment on above:Multiple pieces received. Dimensions of the largest piecereported.Sodium urate crystals detection in stone by infrared spectroscopyon 48-00-3159Urpmoq urate crystals Infrared spectroscopy Ql (Stone)TNP.[facility] Hospitalpecimen source subject [Type]on 74-66-2556Jkmbxbax source subject NomComment.[facility] Comment on above:Left UreterTriamterene measurement in calculuson 01-25-2024 Triamterene (Stone) [Mass fraction]TNP.[facility] HospitalTriple phosphate/Total in Stoneon 14-91-2281Aghjej phosphate (Stone) [Mass fraction]TNP .[facility] HospitalUric acid dihydrate crystals detection in stone by infrared spectroscopyon 01-08-9621Itvmb dihydrate crystals Infrared spectroscopy Ql (Stone)TNP.[facility] HospitalEstimated glomerular filtration rate (GFR) non- Americanon 62-29-1345CZY/1.73 sq M.predicted among non-blacks MDRD (S/P/Bld) [Vol rate/Area]mL/min/{1.73_m2}>=60[facility] HospitalLaboratory - Chemistry and Chemistry - challengeon 12-44-5995Spkpjdj [Mass/Vol]9.4 mg/dL8.5-10.1FProtestant Deaconess Hospital Chloride [Moles/Vol]106 mmol/L10-853RbgsqxlzfBarberton Citizens HospitalCO2 [Moles/Vol]29.6 mmol/L21.0-32.0[facility] HospitalCreatinine [Mass/Vol]0.80 mg/dL0.55-1.02[facility] HospitalGFR/1.73 sq M.predicted MDRD (S/P/Bld) [Vol rate/Area]mL/min/{1.73_m2}>=60[facility] HospitalGlucose [Mass/Vol]81 mg/xB79-484KfgpghxxiBarberton Citizens Hospital Potassium [Moles/Vol]3.8 mmol/L3.5-5.1FOur Lady of Mercy Hospitalodium [Moles/Vol]142 mmol/A160-170DknzgfeklBarberton Citizens HospitalUrea nitrogen [Mass/Vol]17.0 mg/dL7.0-18.0[facility] HospitalUrea nitrogen/Creatinine [Mass ratio]21.2 mg/mgBarberton Citizens HospitalNo Panel Informationon 12-25-2134Zmbkkahy I High Sensitivity<4.0 pg/mL4.0-51.3 [facility] HospitalComment on above:CUT-OFF POINTS HAVE BEEN ESTABLISHED BASED ON THE FOURTHUNIVERSAL DEFINITION OF MYOCARDIAL INFARCTION. THE UPPERREFERENCE LIMIT (URL) OF TROPONIN, DEFINED THE 99THPERCENTILE OF cTnI DISTRIBUTION IN A REFERENCE POPULATION,HAS BEEN CONFIRMED THE DECISION THRESHOLD FOR MIDIAGNOSIS.99TH PERCENTILE = 51.4 PG/MLNOTE: HIGH-SENSITIVITY TROPONIN ASSAY IS NOT INTENDED TO BEUSED IN ISOLATION BUT SHOULD BE INTERPRETED IN CONJUNCTIONWITH OTHER DIAGNOSTIC AND CLINICAL INFORMATION.Serum or plasma anion gap determinationon 95-37-4692Vbiyt gap [Moles/Vol]10.2 mmol/LFProtestant Deaconess HospitalMG MAMM SCREEN 3D ANNA CADon 27-77-3308UX MAMM SCREEN 3D ANNA CADPatient: LIZ KING Exam Date: 05/31/2022 : 1965 Gender:F Ordering : DR RAMON LANDERS D.O. Admission #: [id number] Family : Order #: [id number] CLICK HERE TO VIEW EXAM RADIOLOGY REPORT [...] leukemia cancer at age 80. LOCATION: [facility] BREAST COMPOSITION: Heterogeneously dense,which may obscure small [...] by: Jayy Bell M.D. on 05/31/2022 at 16:00B[facility] Crille HospitalVC INJ SCL ROBERT CHINCHILLA FARMER VEINSon 22-64-5577ED INJ SCL ROBERT CHINCHILLA FARMER VEINSPatient: LIZ KING Exam Date: 05/23/2022 : 1965 Gender:F Ordering : DR ANAHI MCNULTY M.D. Admission #: [id number] Family : Order #: [id number] CLICK HERE TO VIEW EXAM RADIOLOGY REPORT PROCEDURE: VEIN CENTER INJECTION SCLEROSING SOLUTION MULTIPLE VEINS SAME COMPARISON: VC INJ SCL ROBERT CHINCHILLA FARMER VEINS, 05/18/2022. INDICATIONS: Pain co-occurrent and due [...] by: Anahi Mcnulty MD on 05/23/2022 at 13:35[facility] SCL ROBERT CHINCHILLA FARMER VEINSon 14-62-5476ZM INJ SCL ROBERT CHINCHILLA FARMER VEINSPatient: LIZ KING Exam Date: 05/18/2022 : 1965 Gender:F Ordering : DR ANAHI MCNULTY M.D. Admission #: [id number] Family : Order #: [id number] CLICK HERE TO VIEW EXAM RADIOLOGY REPORT [...] by: Anahi Mcnulty MD on 05/18/2022 at 13:11[facility] CONSULT FOLLOWUPon 75-35-2008OS CONSULT FOLLOWUPPatient: LIZ KING Exam Date: 05/13/2022 : 1965 Gender:F Ordering : DR ANAHI MCNULTY M.D. Admission #: [id number] Family : Order #: [id number] CLICK HERE TO VIEW EXAM RADIOLOGY REPORT [...] by: Anahi Mcnulty MD on 05/13/2022 at 12:57[facility] EXT VENOUS RT LIMITEDon 62-65-1996HD EXT VENOUS RT LIMITEDPatient: LIZ KING. Exam Date: 05/13/2022 : 1965 Gender:F Ordering : DR ANAHI MCNULTY M.D. Admission #: [id number] Family : Order #: [id number] CLICK HERE TO VIEW EXAM RADIOLOGY REPORT [...] by: Anahi Mcnulty MD on 05/13/2022 at 12:55[facility] INJ FOAM SCLERO W US MLTIon 25-99-2547WI INJ FOAM SCLERO W US MLTIPatient: LIZ KING. Exam Date: 05/09/2022 : 1965 Gender:F Ordering : DR ANAHI MCNULTY M.D. Admission #: [id number] Family : Order #: [id number] CLICK HERE TO VIEW EXAM RADIOLOGY REPORT [...] medicine as needed and (more content not included)...[facility] CONS[facility] FOLLOWUPon 51-83-3153IO CONSULT FOLLOWUPPatient: LIZ KING Exam Date: 05/02/2022 : 1965 Gender:F Ordering : DR ANAHI MCNULTY M.D. Admission #: [id number] Family : Order #: [id number] CLICK HERE TO VIEW EXAM RADIOLOGY REPORT [...] by: Jayy Bell M.D. on 05/02/2022 at 13:[facility] LIMITEDon 80-74-2158XP EXT VENOUS LT LIMITEDPatient: LIZ KING Exam Date: 05/02/2022 : 1965 Gender:F Ordering : DR ANAHI MCNULTY M.D. Admission #: [id number] Family : Order #: [id number] CLICK HERE TO VIEW EXAM RADIOLOGY REPORT [...] by: Jayy Bell M.D. on 05/02/2022 at 13:07[facility]VC [facility] FOAM SCLERO W US MLTIon 16-56-4508AP INJ FOAM SCLERO W US MLTI Patient: LIZ KING Exam Date: 04/26/2022 : 1965 Gender:F Ordering : DR ANAHI MCNULTY M.D. Admission #: [id number] Family : Order #: [id number] CLICK HERE TO VIEW EXAM RADIOLOGY REPORT [...] scan of the GSV, (more content not included)...[facility] CONSULT FOLLOWUPon 08-08-9314TA CONSULT FOLLOWUPPatient: LIZ KING Exam Date: 04/19/2022 : 1965 Gender:F Ordering : DR ANAHI MCNULTY M.D. Admission #: [id number] Family : Order #: [id number] CLICK HERE TO VIEW EXAM RADIOLOGY REPORT [...] by: Anahi Mcnulty MD on 04/19/2022 at 13:56[facility] EXT VENOUS RT LIMITEDon 57-26-9974GW EXT VENOUS RT LIMITEDPatient: LIZ KING Exam Date: 04/19/2022 : 1965 Gender:F Ordering : DR ANAHI MCNULTY M.D. Admission #: [id number] Family : Order #: [id number] CLICK HERE TO VIEW EXAM RADIOLOGY REPORT [...] by: Anahi Mcnulty MD on 04/19/2022 at 13:24[facility] ENDOVENOUS ABL 1ST V RTon 14-88-9387AW ENDOVENOUS ABL 1ST V RTPatient: LIZ KING Exam Date: 04/12/2022 : 1965 Gender:F Ordering : DR ANAHI MCNULTY M.D. Admission #: [id number] Family : Order #: [id number] CLICK HERE TO VIEW EXAM RADIOLOGY REPORT [...] The total number of Joules delivered was 31404. The laser was active for 146 seconds [...] by: Anahi Mcnulty MD on 04/12/2022 at 13:30[facility] CONSULT FOLLOWUPon 75-54-4507GE CONSULT FOLLOWUPPatient: LIZ KING. Exam Date: 03/29/2022 : 1965 Gender:F Ordering : DR ANAHI MCNULTY M.D. Admission #: [id number] Family : Order #: [id number] CLICK HERE TO VIEW EXAM RADIOLOGY REPORT [...] by: Jayy Bell M.D. on 03/29/2022 at 14:07[facility] EXT VENOUS LT LIMITEDon 74-19-8487TS EXT VENOUS LT LIMITEDPatient: LIZ KING. Exam Date: 03/29/2022 : 1965 Gender:F Ordering : DR ANAHI MCNULTY M.D. Admission #: [id number] Family : Order #: [id number] CLICK HERE TO VIEW EXAM RADIOLOGY REPORT [...] by: Jayy Bell M.D. on 03/29/2022 at 14:02[facility] ENDOVENOUS ABL 1ST V LTon 96-46-4292HY ENDOVENOUS ABL 1ST V LT Patient: LIZ KING Exam Date: 03/22/2022 : 1965 Gender:F Ordering : DR ANAHI MCNULTY M.D. Admission #: [id number] Family : Order #: [id number] CLICK HERE TO VIEW EXAM RADIOLOGY REPORT PROCEDURE: VEIN CENTER ENDOVENOUS ABLATION FIRST VEIN LEFT GREAT SAPHENOUS VEIN COMPARISON: None. INDICATIONS: Pain co-occurrent and due to varicose veins of bilateral legs i83.813 OPERATIVE REPORT: The risks and benefits of the procedure had been previously discussed, and were rediscussed at length. Informed written consent was obtained by tn and Elpidio Nesbitt assisted. Time out procedure [...] by: Anahi Mcnulty MD on 03/22/2022 at 14:03[facility] CONSULT FOLLOWUPon 63-97-1579MK CONSULT FOLLOWUPPatient: LIZ KING Exam Date: 02/25/2022 : 1965 Gender:F Ordering : DR ANAHI MCNULTY M.D. Admission #: [id number] Family : Order #: [id number] CLICK HERE TO VIEW EXAM RADIOLOGY REPORT [...] by: Anahi Mcnulty MD on 02/25/2022 at 14:12[facility] EXT VENOUS RT LIMITEDon 23-89-8640QM EXT VENOUS RT LIMITEDPatient: LIZ KING Exam Date: 02/25/2022 : 1965 Gender:F Ordering : DR ANAHI MCNULTY M.D. Admission #: [id number] Family : Order #: [id number] CLICK HERE TO VIEW EXAM RADIOLOGY REPORT [...] to thrombus *Exam performed in accordance with [facility] practice guidelines- Peripheral venous ultrasound, November 07, 2009. 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 Dictated by: Anahi Mcnulty MD on 02/25/2022 at 14:01 Approved by: Anahi Mcnulty MD on 02/25/2022 at 14:03[facility] CONSULT FOLLOWUPon 87-01-1371NQ CONSULT FOLLOWUPPatient: LIZ KING Exam Date: 02/07/2022 : 1965 Gender:F Ordering : DR ANAHI MCNULTY M.D. Admission #: [id number] Family : Order #: [id number] CLICK HERE TO VIEW EXAM RADIOLOGY REPORT [...] by: Anahi Mcnulty MD on 02/07/2022 at 12:26[facility] EXT VENOUS RT LIMITEDon 87-21-5707GQ EXT VENOUS RT LIMITEDPatient: LIZ KING Exam Date: 02/07/2022 : 1965 Gender:F Ordering : DR ANAHI MCNULTY M.D. Admission #: [id number] Family : Order #: [id number] CLICK HERE TO VIEW EXAM RADIOLOGY REPORT [...] by: Anahi Mcnulty MD on 02/07/2022 at 12:06[facility] CONSULT FOLLOWUPon 41-30-4335UV CONSULT FOLLOWUPPatient: LIZ KING Exam Date: 01/31/2022 : 1965 Gender:F Ordering : DR ANAHI MCNULTY M.D. Admission #: [id number] Family : Order #: [id number] CLICK HERE TO VIEW EXAM RADIOLOGY REPORT [...] by: Jayy Bell M.D. on 01/31/2022 at 15:59[facility] EXT VENOUS RT LIMITEDon 69-36-1293VQ EXT VENOUS RT LIMITEDPatient: LIZ KING Exam Date: 01/31/2022 : 1965 Gender:F Ordering : DR ANAHI MCNULTY M.D. Admission #: [id number] Family : Order #: [id number] CLICK HERE TO VIEW EXAM RADIOLOGY REPORT [...] by: Jayy Bell M.D. on 01/31/2022 at 15:40[facility] ENDOVENOUS ABL 1ST V RTon 98-89-2940JX ENDOVENOUS ABL 1ST V RT Patient: LIZ KING Exam Date: 01/25/2022 : 1965 Gender:F Ordering : DR ANAHI MCNULTY M.D. Admission #: [id number] Family : Order #: [id number] CLICK HERE TO VIEW EXAM RADIOLOGY REPORT PROCEDURE: VEIN CENTER ENDOVENOUS ABLATION FIRST VEIN RIGHT COMPARISON: None. INDICATIONS: Pain co-occurrent and due to varicose veins of bilateral legs i83.813 OPERATIVE REPORT: The risks and benefits of the procedure had been previously discussed, and were rediscussed at length. Informed written consent was obtained by tn and Rolando tanner. Time out procedure was [...] 36 cm from the entry 10 cm cevbg-zmg-unoc to 3 cm below the saphenofemoral junction. [...] by: Jayy Bell M.D. on 01/25/2022 at 14:30[facility] COMP CONSULTATIONon 64-93-1358RW COMP CONSULTATIONPatient: LIZ KING Exam Date: 12/23/2021 : 1965 Gender:F Ordering : DR AYSE PRECIADO M.D. 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 The patient's symptoms are relieved by rest, [...] by: Anahi Mcnulty MD on 12/23/2021 at 13:56[facility] V[facility]OUS REFLUX ANNA [facility] 67-78-4223GC VENOUS REFLUX ANNA TPatient: LIZ KING Exam Date: 12/23/2021 : 1965 Gender:F Ordering : DR AYSE PRECIADO M.D. Admission #: [id number] Family : Order #: [id number] CLICK HERE TO VIEW EXAM RADIOLOGY REPORT [...] area of thrombus. Deep venous reflux visualized. [employer]ician: Dist/med calf 4.2 mm, 3.8s. Dist calf [...] by: Anahi Mcnulty MD on 12/23/2021 at 12:48[facility] HospitalUS SHANIA DOP LEG LTon 33-72-0391EK SHANIA DOP LEG LTEXAMINATION: US SHANIA DOP LEG LT HISTORY: Disorder [...] Electronically authenticated by: JAYY BELL Date: 2021-12-13 12:41[facility] Vital Signs Date TimeVital SignValuePerforming WpaktzvtlYjyorbpd10-02-4873 09:50-0400 Diastolic blood ybxbyecu94 mm[Hg]Ayse Preciado MD Work Phone: [facility]09-09-2025 09:50-0400 Heart rate58 /Marques Preciado MD Work Phone: [phone]09-09-2025 09:50-0400 Respiratory rate16 /Marques Preciado MD Work Phone: 1(771)[address]09-09-2025 09:50-0400 SaO2% (BldA) [Mass fraction]99 %Ayse Preciado MD Work Phone: 1(188)[address]09-09-2025 09:50-0400 Systolic blood pttetgws300 mm[Hg]Ayse Preciado MD Work Phone: 1(326)[address]09-09-2025 07:45-0400 Body urbcok462.37 cmAyse Preciado MD Work Phone: 1(745)[address]09-09-2025 07:45-0400 Body eqqfja65.52 kgAyse Preciado MD Work Phone: 1(482)[address]07-07-2025 15:33-0400 Body bztxbe387.37 cmAyse Preciado MD Work Phone: 1(790)[address]07-07-2025 15:33-0400 Body mass index (BMI) [Ratio]35 kg/n0RlbrhzAyse Preciado MD Work Phone: 1(332)[address]07-07-2025 15:33-0400 Body ofupxu63.06 kgAyse Preciado MD Work Phone: 1(490)840-[address] [place], [place] [address]681307-07-2025 15:33-0400 Diastolic blood fmxpuady82 mm[Hg]Ayse Preciado MD Work Phone: 1(771)024-[address] [place], [place] 9681307-07-2025 15:33-0400 Heart rate70 /Marques Preciado MD Work Phone: 1(874)926-[address] [place], [place] 9681307-07-2025 15:33-0400 Systolic blood ibhpkgij242 mm[Hg]Ayse Preciado MD Work Phone: 1([phone])[address]01-21-2025 14:23-0500 Blood [facility]01-21-2025 14:23-0500Body hrzlniurdvw73.6 [degF]Gurdeep SWEENEY [facility]01-21-2025 14:23-0500Diastolic blood mm[Hg]Gurdeep SWEENEY [facility]01-21-2025 14:23-0500Heart rate81 /minGurdeep SWEENEY [facility]01-21-2025 14:23-0500Systolic blood mm[Hg]Gurdeep SWEENEY [facility]01-21-2025 08:57-0500Body mass index (BMI) [Ratio]36.3 kg/s7Xqejb Rina DO Work Phone: [facility] SystemNjgijfjrms51-65-7435 08:57-0500Body hfrspu09.94 kgCorey Rina DO Work Phone: [facility] SystemViyehoqfda11-48-9584 08:57-0500Diastolic blood mm[Hg]Luz Rina DO Work Phone: [facility] SystemVtshfepzab81-21-8781 08:57-0500Systolic blood gsafxysm018 mm[Hg]Luz Rina DO Work Phone: [facility] SystemOcomxawepa08-22-0896 11:28-0500Body mass index (BMI) [Ratio]35.18 kg/b7Pzzlq Rina DO Work Phone: [facility] SystemQrmwoubqog78-55-6625 11:28-0500Body arjudd27.89 kgCorey Rina DO Work Phone: [facility] SystemUsnasgwvfz35-48-6528 11:28-0500Diastolic blood kiqceyzq74 mm[Hg]Luz Rina DO Work Phone: 1(419)483-[address] [place], [place] [address]Zwdwmimmhk46-94-8157 11:28-0500Systolic blood eslnwods105 mm[Hg]Luz Rina DO Work Phone: 1(875)[employer] [place], [place] [address]Jdmlvhofai06-66-7005 13:36-0500Body kmtpyb169.1 cmCorey Rina DO Work Phone: 1(661)[employer] [place], [place] [address]Fnmxrzxdvw46-90-4342 13:36-0500Body mass index (BMI) [Ratio]36.11 kg/w6Lhhcm Rina DO Work Phone: [phone])[address] [place] [address]-12-2024 13:36-0500Body szgwza04.43 kgCorey Rina DO Work Phone: 1(210)[address] [place] [address]-12-2024 13:36-0500Diastolic blood ahdwxsgd50 mm[Hg]Luz Rina DO Work Phone: 1(212)[address] [place], [place] 1575411-12-2024 13:36-0500Systolic blood hzwmcpoi438 mm[Hg]Luz Rina DO Work Phone: 1(465)[address] [place], [place] 1575409-05-2024 11:17-0400Body qufxid46.76 kgCorey Rina DO Work Phone: 1(221)[address] [place], [place] 1575409-05-2024 11:17-0400Diastolic blood tfwwivez25 mm[Hg]Luz Rina DO Work Phone: 1(562)[employer] [place], [place] [address]Hrplogclyw58-20-6043 11:17-0400Systolic blood kjjmvdni450 mm[Hg]Luz Rina DO Work Phone: 1(009)[address] [place], [place] 1575406-20-2024 14:32-0400Body cmpege564.1 [facility]06-20-2024 14:32-0400Body mass index (BMI) [Ratio]34.6 kg/y1XdgzueszuBarberton Citizens Hospital06-20-2024 14:32-0400Body pgmasd73.34 kgBarberton Citizens Hospital06-20-2024 14:32-0400Diastolic blood mm[Hg][facility]06-20-2024 14:32-0400 Heart rate63 /[facility]06-20-2024 14:32-0400Systolic blood yichbvvz598 mm[Hg][facility]06-13-2024 16:12-0400 Body xomzpq34 mgMD Ayse Preciado Work Phone: 1(772)143-[address] [place], [place] 9681304-04-2024 14:56-0400 Body .1 cmMD Ayse Preciado Work Phone: 1(748)869-[address] [place], [place] 9681304-04-2024 14:56-0400 Body mass index (BMI) [Ratio]34.7 kg/m2MD Ayse Preciado Work Phone: 1(547)[address]04-04-2024 14:56-0400 Body cmyoyg96.51 kgMD Ayse Preciado Work Phone: 1(453)[address]04-04-2024 14:56-0400 Diastolic blood hzklwiwc52 mm[Hg]MD Ayse Preciado Work Phone: 1(764)[address]04-04-2024 14:56-0400 Heart rate70 /minMD Ayse Preciado Work Phone: 1(808)[address]562 [address]04-04-2024 14:56-0400 Systolic blood irreooth708 mm[Hg]MD Ayse Preciado Work Phone: 1(448)[address]62 [address]03-11-2024 14:13-0400 Body .1 cmMD Ayse Preciado Work Phone: 1(667)604-[address] [place], [place] 9681303-11-2024 14:13-0400 Body mass index (BMI) [Ratio]34.4 kg/m2MD Ayse Preciado Work Phone: 1(430)327-[address] [place], [place] 9681303-11-2024 14:13-0400 Body wkypdu71 kgMD Ayse Preciado Work Phone: 1(465)[address]03-11-2024 14:13-0400 Diastolic blood hcrppqwu42 mm[Hg]MD Ayse Preciado Work Phone: 1(586)956-[address] [place], [place] 9681303-11-2024 14:13-0400 Heart rate62 /minMD Ayse Preciado Work Phone: [facility]03-11-2024 14:13-0400 Systolic blood woabqhzf859 mm[Hg]MD Ayse Preciado Work Phone: [facility] Encounters Encounter DateEncounter TypeCare ProviderFacilityStart: 07-44-2294ssfktgslfy Gurdeep SWEENEYFacility:EU [place]kyStart: 04-22-2025 End: 85-25-2590aimebkbttcBzzlxtnwu L LyFacility:[facility] Hospitaltart: 63-26-0520Exx-patient / Non-visitCatherine L Ly DO-[facility] Work Phone: Start: 02-17-2025 End: 10-51-9338bwslenbtghEqixvu E Braun MD Work Phone: [facility] Work Phone: Start: 02-17-2025 End: 73-30-9565Pmbzttm encounter procedureAyse Preciado MD-[facility] Work Phone: Start: 02-17-2025 End: 22-44-3589Vswucmp encounter statusAyse Preciado MDLicking Memorial Hospitaltart: 92-03-2966Kmm-patient / Non-visitAyse Preciado MD-[facility] Work Phone: Start: 65-26-9251Ibowckw encounter statusAyse Preciado MD Work Phone: [facility] Hospitaltart: 09-03-2024 End: 55-35-3444zdwwamgwgqMjhzjpk P COOKFacility:EU [place]Start: 09-03-2024 End: 00-46-5104Yqwblvy encounter procedureGurdeep SWEENEY [facility] Start: 09-03-2024 End: 83-54-6190Iowdsz flowsheetCorey Rina DO Work Phone: [facility] B[facility] OBStart: 09-03-2024 End: 08-59-7411Sajzig flowsheetCorey Rina DO Work Phone: [facility] OBStart: 09-03-2024 End: 20-52-8017Hcbrer follow up visit related to original pxCorey Rina DO Work Phone: [facility] OBComment on above:Postoperative follow-up; S/P hysterectomyStart: 08-01-2024 End: 47-87-5104Elhuvv flowsheetCorey Rina DO Work Phone: [facility] OBStart: 08-01-2024 End: 12-22-7377Ejxyox flowsheetCorey Rina DO Work Phone: [facility] OBStart: 08-01-2024 End: 08-89-4989Ptdlsi follow up visit related to original pxCorey Rina DO Work Phone: [facility] OBComment on above:Postoperative examination Start: 07-25-2024 End: 14-88-5933Clbuapopz Result EncounterCorey Rina DO Work Phone: [facility] External Department UnsolicitedStart: 07-25-2024 End: 85-13-1082Ssisxuyrv Result EncounterCorey Rina DO Work Phone: [facility] External Department UnsolicitedStart: 07-24-2024 End: 39-57-7169Spcsxwzao Result EncounterCorey Rina DO Work Phone: [facility] External Department UnsolicitedStart: 07-24-2024 End: 77-42-1296Wsafdfans Result EncounterCorey Rina DO Work Phone: [facility] External Department UnsolicitedStart: 07-24-2024 End: 33-41-1178snccdrijaqXqhkr FazioFacility:[facility] Start: 07-22-2024 End: 55-17-1972Ejdeazntw Result EncounterCorey Rina DO Work Phone: [facility] External Department UnsolicitedStart: 07-22-2024 End: 76-48-8726Rsgrkhlgp Result EncounterCorey Rina DO Work Phone: [facility] External Department UnsolicitedStart: 07-08-2024 End: 74-69-4440Gdzebgiqc Result EncounterCorey Rina DO Work Phone: [facility] External Department UnsolicitedStart: 07-08-2024 End: 65-12-2817Uvzbhtigz Result EncounterCorey Rina DO Work Phone: [facility] External Department UnsolicitedStart: 06-25-2024 End: 75-87-4152Kjggbi flowsheetCorey Rina DO Work Phone: [facility] OBStart: 06-25-2024 End: 19-41-7715Nfeqyf flowsheetCorey Rina DO Work Phone: [facility] OBStart: 06-25-2024 End: 77-98-9284Qtvrmd outpatient visit 15 minutesCorey Rina DO Work Phone: [facility] OBComment on above:Pre-op examination; Enlarged uterus; Pelvic pain in femaleStart: 06-25-2024 End: 66-50-6680Hhtqnikcvymxf examination doneCorey Rina DO Work Phone: NONJ HealthcareStart: 06-04-2024 End: 02-28-9656Mmvssumrn Result EncounterCorey Rina DO Work Phone: [facility] External Department UnsolicitedStart: 06-04-2024 End: 07-82-3608Nmxmdqlfv Result EncounterCorey Rina DO Work Phone: [facility] External Department UnsolicitedStart: 04-18-2024 End: 85-98-4943Vofxyf flowsheetCorey Rina DO Work Phone: [facility] OBStart: 04-18-2024 End: 39-17-9522Cpvkvo flowsheetCorey Rina DO Work Phone: [facility] B[facility] OBStart: 04-18-2024 End: 16-46-9990Pxhuiv follow up visit related to original pxCorey Rina DO Work Phone: [facility] OBComment on above:Postoperative examination; Pelvic pain in female; Uterine mass; Bulky or enlarged uterus; Pelvic pressure in femaleStart: 04-11-2024 End: 94-56-8791Mpygnsceu Result EncounterCorey Rina DO Work Phone: [facility] External Department UnsolicitedStart: 04-11-2024 End: 44-50-4412Lltseddxp Result EncounterCorey Rina DO Work Phone: [facility] External Department UnsolicitedStart: 04-11-2024 End: 42-44-3435ejgwddrbepID Ayse Preciado Work Phone: [facility] Work Phone: Start: 04-11-2024 End: 26-29-7615Pszxuqjx ReferredMD Ayse Preciado Work Phone: [facility]-LAB Path Spec Maciej HospStart: 56-24-6169Uvw-patient / Non-visitMD Ayse Preciado Work Phone: [facility] Work Phone: Start: 02-19-2024 End: 64-61-1099gcohbdzwptDuicpta P COOKFacility:FTMCStart: 02-19-2024 End: 76-17-2169Jswyyox encounter procedureGregsarah SWEENEY [facility] Start: 02-07-2024 End: 28-43-7632xsyxfuldhhRyugmdl Sixto COOKFacility:EU [place]Start: 02-07-2024 End: 83-02-5153Veaxrgl encounter procedureGregory Sixto SWEENEY [facility] start: 02-01-2024 End: 79-10-0063vzpfiymxwtNqjznahicProMedica Memorial Hospital Work Phone: Start: 02-01-2024 End: 03-19-0342Iogckzr encounter procedureHay[facility] Work Phone: Start: 99-40-6954rqseweejvoDyvvavt COOKFacility:EU [place]Start: 41-94-4293Akv-patient / Non-visitHaywood Regional Medical Center [facility] Work Phone: Start: 01-25-2024 End: 74-17-9418srmtflkaofRtvzaxu P COOKFacility:CD:[id number]: 11-16-2023 End: 44-55-7675gdbgxnohdeJG Marcia E Braun Work Phone: [facility] Work Phone: Start: 11-16-2023 End: 30-72-3216Ibhmtlp encounter procedureMD Ayse Preciado Work Phone: [facility] Work Phone: Start: 10-23-2023 End: 81-61-5030Rxrdqvk encounter procedureMD Ayse Preciado Work Phone: [facility] Work Phone: Start: 05-31-2022 End: 88-08-0163mlkyuokqmaNL BENJAMIN BALLFacility:J5Vzjwp: 86-16-3173vnpnpxqsdj DR ANAHI MCNULTYFacility:R2Gkeuf: 51-10-6491txaumvazciVL DAVID V WESTFacility:H1 Start: 05-23-2022 End: 38-83-8466ltpcsjlspnPV DAVID V WESTFacility:P4Bopec: 05-18-2022 End: 94-27-2306mrjuedywgtKU DAVID V WESTFacility:P9Tkhhw: 05-13-2022 End: 83-44-5003xpthualjahMP DAVID V WESTFacility:E3Vpztm: 05-09-2022 End: 09-95-7164rtaplkvjkwJC ANAHI V WESTFacility:X7Sadop: 05-02-2022 End: 99-41-0587cqwcdcmqgsPA ANAHI V WESTFacility:K4Mzigp: 04-26-2022 End: 55-55-4683xvhxzqwtmcOX ANAHI V WESTFacility:N8Mifgh: 04-19-2022 End: 90-80-7751ldamrzdwdwJX ANAHI V WESTFacility:H2Mldfa: 04-12-2022 End: 62-44-0326iswkicmxnrEQ ANAHI V WESTFacility:I3Oibxr: 03-29-2022 End: 07-33-2503pwtldbhrttMM ANAHI V WESTFacility:T0Ieopy: 03-22-2022 End: 02-52-4111tuifofozdhBG ANAHI V WESTFacility:F0Jrybn: 02-25-2022 End: 72-03-5369vwslucrmynWA ANAHI V WESTFacility:H7Tkwlf: 79-41-1807whgsqfzgcmVP ANAHI V WESTFacility:Y7Fvsjg: 58-94-3279nsuknadzrtXE ANAHI V WESTFacility:H1 Start: 02-07-2022 End: 42-75-7222mwyuycsxyyZC ANAHI V WESTFacility:C9Xrfhy: 01-31-2022 End: 49-65-3577fjcfpfozuyIS ANAHI V WESTFacility:H1Xpjlb: 01-25-2022 End: 96-00-4542qlqygoxusfDP ANAHI V WESTFacility:H2Tddnx: 12-23-2021 End: 02-19-5026bfbbfcogjyOD AYSE PRECIADOFacility:H0Fhfyv: 12-13-2021 End: 78-61-8631sjkmxyosacKT AYSE PRECIADOFacility:H1 Procedures DateProcedureProcedure DetailPerforming ClinicianStart: 37-63-7346PFM CBC WITH AUTO DIFFCorey Rina DO Work Phone: Start: 51-08-6667VBR CBC WITH AUTO DIFFCorey Rina DO Work Phone: Start: 52-64-4848EboccblojlokVvwrylt COOK Start: 66-65-9946Ubcpcmbb screenCorey Rina DO Work Phone: Start: 13-21-9140KEH TYPE AND SCREENCorey Rina DO Work Phone: Start: 39-65-4569SMI CBC WITH AUTO DIFFCorey Rina DO Work Phone: Start: 80-05-2046JJM 12-LEADCorey Rina DO Work Phone: Start: 73-55-9750UQ TOMOSYNTHESIS SCREENING BICorey Rina DO Work Phone: Start: 67-38-3054MuprdbejqtvKfgmz Rina DO Work Phone: Start: 32-80-4092XPA CBC WITH AUTO DIFFCorey Rina DO Work Phone: Start: 32-06-4723Zwanwwystzt removal of ureteric stent GurdeepJavelin Start: 42-46-7562Iwpoakowfkv insertion of ureteric stentJanJavelin Bilateral tubal ligationJanJavelin Cesarean sectionGregJavelin Excision of thyroglossal duct cystJanJavelin H/O: hysterectomyS/P hysterectomyCorey Rina DO Work Phone: LithotripsyJanJavelin Plan of Treatment DateCare ActivityDetailAuthorStart: 09-08-2025 End: 18-74-8828Xsogegb encounter procedureNOMS BCP OBStart: 21-66-9595Rqeayszqt for malignant neoplasm of breastMammogramNONE HealthcareStart: 04-22-2025 End: 88-45-1224QaqhsbcxdLicking Memorial Hospitaltart: 76-24-4948Hrbwlsi referralProtestant [facility] Work Phone: Start: 09-03-2024 End: 74-63-6138Nbsirqm encounter slnikthbf15/21/2025 8:40 AM EST Office Visit [facility] [address] [place] [id number] Luz Flynn, DO [address] [place] [address] [facility] OBStart: 08-01-2024 End: 94-53-1194Igoijuh encounter grgcnguum38/19/2024 10:50 AM EST Office Visit [facility] [address] [place], [place] [id number] Luz Flynn, DO [address] [place] [address] [facility] OBStart: 06-25-2024 End: 88-73-0274Qyhuhtl encounter gkjphujfw24/12/2024 1:10 PM EST Consult [facility] OB [address] [place] [address] Luz Flynn, DO [address] [place] [address] [facility] OBStart: 16-33-4113Vbtgqjmwh vaccinationInfluenza Vaccine (#1)NOM HealthcareStart: 20-11-2126Qmlshyg [facility] Work Phone: Start: 38-17-7376PLP 12 channel [facility]: 80-81-9491Htmcvsktr for malignant neoplasm of breastMammogramNOMS HealthcareStart: 96-62-5515Qcsaospqh for malignant neoplasm of cervixNOMS HealthcareStart: 55-62-8652Eturkxopr for malignant neoplasm of cervixPap SmearNOMS HealthcareStart: 60-58-9998Idxjlmkwj for malignant neoplasm of colonNOMS HealthcarePatient EducationColon polyps High-fiber diet [place] Diverticulosis Discharge Instructions Know your [facility] Work Phone: [facility]Pro[facility] Work Phone: us [facility] Immunizations Immunization DateImmunizationNotesCare QqrwzxxdVukziwml62-80-4343TXRO-LqC-2 mRNA (nxzvuwlinrk-duoc-hvraqob) vaccineGregory PunchTab [facility]02-14-2022SARS-CoV-2 mRNA (reiroaqkyci-ougs-ulswule) vaccineGregory PunchTab [facility]12-22-2016tetanus toxoid, reduced diphtheria toxoid, and acellular pertussis vaccine, adsorbedGregory PunchTab [facility]09-24-2001Hep A, unspecified formulationMerit Health WesleyJavelin [facility]09-24-2001hepatitis B vaccine, adult dosageGregJavelin [facility]04-04-2001hepatitis B vaccine, adult dosageGregory PunchTab [facility]02-26-2001Hep A, unspecified formulationMerit Health WesleyJavelin [facility]02-26-2001hepatitis B vaccine, adult dosageGregory PunchTab [facility]11-15-1999Td(adult) unspecified formulationGregory PunchTab [facility] DatePayer CategoryPayerPolicy [id number] Health InsuranceSUMMA HEALTH BARBERTON CAMPUSCAL MUTUAL [id number] [employer] [id number] 08/14/2023-Present [address] [place] [address] [id number] 2..1.119087.3.57[id number] 2..1.386059.3.57[id number] 2..1.721324.3.57[id number] 2..1.833981.3.57[id number] 2.0.1.174785.3.57[id number] 2..1.916574.3.57[id number] 2..1.060854.3.57[id number] 2..1.554158.3.579.[id number] 2.16840.1.531165.3.579.2.83635-91-4247Rkeyinl5151461 2.16840.1.988454.3.579.2.04309-81-8249Danhhlz5340143 2.16840.1.073997.3.579.2.00850-20-1723Mvmtgnc4121717 2.16840.1.746451.3.579.2.73383-61-0324Pyyyjyo4150060 2.16840.1.262998.3.579.2.39849-73-6933Ohmkkdc7322474 2.16840.1.517258.3.579.[id number] 2.840.1.430814.3.579.[id number] 2.840.1.785771.3.579.2.47481-99-1287Pztktii7838599 2.840.1.928272.3.579.2.05013-40-4953Urufzmo6073492 2.840.1.082744.3.579.2.55217-18-0567Xvttiyx1941534 2.840.1.674050.3.579.2.95350-78-8552Iiaurnp0190526 2.16840.1.519429.3.57[id number] 2.16840.1.962097.3.579.[id number] 2.16840.1.009771.3.579.[id number] 2.16840.1.646181.3.579.2.89622-25-9250Xxpezzz90099026 2.16.840.1.430245.3.579.2.49[id number] 2.16.840.1.086336.3.57[id number] 2.16.840.1.868971.3.579.[id number] 2.16.840.1.912353.3.579.2.683Mmlcocu80583084 2..840.1.583334.3.579.2.531 Social History DateTypeDetailFacilityStart: 10-23-2023 End: 85-81-4528Npfhqwd smoking status NHISNever smoked tobacco (finding) [facility]tart: 78-74-6410Yfh [facility] HospitalTobacco smoking status NHISTobacco smoking consumption unknownNONE HealthcareStart: 77-12-2185Golldq identityIdentifies as female gender (finding) [facility] HealthcareStart: 71-33-2760Mxl assigned at birthNot on [facility] SexFemale (finding)[facility]tart: 64-16-5122TumYevlkk [facility] Healthcare Functional Status EhexQwblqpsndpHzblznPpqvkxgr95-03-0923Fwuniwhqsv StatusN/AExec[facility] Clinical Notes 02-01-2024 to 02-17-2025 Note Date & HqngIasyGsuzddgz42-93-2395 Evaluation note* Diagnosis Onset Date Resolution Status Admit Date Colon cancer screening acuteJuly 2024 3:27pmHTN (hypertension)acuteJuly 2024 3:27pmWellness examinationacuteJuly 2024 3:27pm [facility] Work Phone: 1(426) 957-751001-21-2025 Hospital Discharge instructions Patient Education 09/03/2024 15:06:22 Dietary Guidelines [...] about 300 mg of calcium at each meal.Foods that contain 200 500 mg of calcium a serving include: ?8 oz (237 mL) of milk, qvrohps-yghdtofwgovm-lcobd milk, and calcium- fortifiedfruit juice. Calcium-fortified means that calcium has been [...] the table and allow each person to addtheir own salt to taste. Use vegetable protein, such as beans, textured vegetable protein (TVP), or tofu, instead of meat inpasta, casseroles, and soups. Meal planning Eat less salt, if told by your dietitian. To do this: ?Avoid eating processed or pre-made food. ?Avoid eating fast food. Eat less animal protein, including cheese, meat, poultry, or fish, if told by your dietitian. To dothis: ?Limit the number of times you have meat, poultry, fish, or cheese each week. Eat a diet free of meat at least 2 days a week. ?Eat only one serving each day of meat, poultry, fish, or seafood. ?When you prepare animal proteins, cut pieces into small portion sizes. For most meat and fish, oneserving is about the size of the palm [...] ?Spinach (cooked), rhubarb, beets, sweet potatoes, and Italian chard. ?Peanuts. ?Potato chips, occitan fries, and baked potatoes with skin on. ?Nuts and nut products. ?Chocolate. If you regularly take a diuretic medicine, make sure to eat at least 1 or 2 servings of fruits or vegetables that are high in potassium each day. These include: ?Avocado. ?Banana. ?Granite, prune, carrot, or tomato juice. ?Baked potato. [...] magnesium, fish oil, or vitamin B6. Take zoqd-zuf-dxhstlw and prescription medicines only as told by [...] Casseroles. Pizza. Lasagna. Frozen meals. Potato chips. Danish fries. The items listed above may not be a complete list of foods and beverages you should limit. Contact a dietitian for more information. What foods should I avoid? Talk to your dietitian about specific foods you should avoid based on the type of kidney stones youhave and your overall health. Fruits Grapefruit. The item listed above may not be a complete list of foods and beverages you should avoid. Contact adietitian for more information. Summary Kidney stones are [...] provider. Document Revised: 11/10/2022 Document Reviewed: 11/10/2022 [employer]iver[employer] Patient Education 2023 [email or web address]. Follow Up Care 02/19/2024 15:24:02 With:ZAHRA DONNELLY, Gurdeep Henson, URL Address: [facility] [employer] [address]- When: Unknown [facility] Deedee 01-21-2025 NotePatient Education Nephrology Dietary Guidelines to Help Prevent [...] labels. Limit your salt (sodium) intake to lessthan 1,500 mg a day. ??? Choose foods with calcium for each meal and snack. Try to eat about 300 mg of calcium at each meal. Foods that contain 200?500 mg of calcium a serving include: ? 8 oz (237 mL) of milk, lczwwse-oyzxutmdnqeh-adogd milk, and calcium- fortifiedfruit juice. Calcium-fortified means that calcium has been [...] on the table and allow each person toadd their own salt to taste. ??? Use [...] Spinach (cooked), rhubarb, beets, sweet potatoes, and Italian chard. ? Peanuts. ? Potato chips, occitan fries, and baked potatoes with skin on. ? Nuts and nut products. ? Chocolate. ??? If you regularly take a diuretic medicine, make sure to eat at least 1 or 2 servings of fruits or vegetables that are high in potassium each day. These include: ? Avocado. ? Banana. ? Granite, prune, carrot, or tomato juice. ? Baked potato. ? Cabbage. ? Beans and split peas. Lifestyle ??? Drink enough fluid to keep your urine pale yellow. This is the most important thing you can do.Spread your fluid intake throughout the day. ??? [...] fish oil, or vitamin B6. ??? Take wyoj-btm-cbttwtl and prescription medicines only as told by your health (more content not included)...[facility]01-21-2025 History of Present illness Narrative* Janina Garcia LPN - 09/03/2024 8:40 AM EST Reason for Appointment: Patient ID: Liz King is a 59 y.o. female who presents for Post-op Visit Patient presents today for 6 week [facility] Post Op Follow Up appointment. MEDICATIONS Current Outpatient Medications Medication Instructions amLODIPine (NORVASC) 10 mg, Daily losartan (COZAAR) 50 mg, Daily ALLERGIES Allergies Allergen Reactions Bactrim [Sulfamethoxazole-Trimethoprim] Sulfamethoxazole Other Reaction(s): Hives Trimethoprim Other Reaction(s): [...] nursing note reviewed. Exam conducted with a executive chef present. Vitals: Estimated body mass index is [...] by Janina Garcia LPN on behalf of: Luz Flynn DO documented in this encounterSaint John's Health SystemIvrxvzsjsf88-85-8913 History of Present illness Narrative* Oneida Pena LPN - 08/01/2024 10:50 AM EST Reason for Appointment: Patient ID: Liz King is a 59 y.o. female who presents for Post-op Visit Patient presents today for 1 Week Post Op Follow Up appointment. MEDICATIONS Current Outpatient Medications Medication Instructions amLODIPine (NORVASC) 10 mg, Daily losartan (COZAAR) 50 mg, Daily ALLERGIES Allergies Allergen Reactions Bactrim [Sulfamethoxazole-Trimethoprim] Sulfamethoxazole Other Reaction(s): Hives Trimethoprim Other Reaction(s): [...] nursing note reviewed. Exam conducted with a executive chef present. Vitals: Estimated body mass index is 35.18 kg/m as calculated from the following: Height as of 24: 5' 5 . Weight as of this encounter: 211 lb 6.4 oz. BP: 128/80 No LMP recorded. Patient has had a hysterectomy. ASSESSMENT & PLAN ICD-10-CM 1. Postoperative examination Z09 Patient presents today for post operative visit [address] [facility]. Incision is healing well and patient voiced she is feeling better each day. Patient to return to clinic in 5 weeks for 6 week post op appointment. Discussed surgery and finding in detail with patient and spouse. Documented by Oneida Pena LPN on behalf of: Luz Flynn DO documented in this encounterSaint John's Health SystemNzbpjnnxwn54-43-0712 History of Present illness Narrative* Patricia Cervantes - 06/25/2024 1:10 PM EST Reason for Appointment: Patient ID: Liz King is a 59 y.o. female who presents for Pre-op Visit Patient presents today for Pre Op appointment. Patient is scheduled to undergo Total Abdominal Hysterectomy, possible BSO, possible cystoscopy on 07/24/[address] Flynn at [facility]. MEDICATIONS Current Outpatient Medications Medication Instructions amLODIPine (NORVASC) 10 mg, Oral, Daily losartan (COZAAR) 50 mg, Oral, Daily ALLERGIES Allergies Allergen Reactions Bactrim [Sulfamethoxazole-Trimethoprim] Sulfamethoxazole Other Reaction(s): Hives Trimethoprim Other Reaction(s): [...] nursing note reviewed. Exam conducted with a executive chef present. Vitals: Estimated body mass index is [...] reviewed, and patient is to proceed to [facility] OR. Follow Up: Patient is to follow up at 1 & 6 weeks post operative to assess proper healing and recovery from procedure. Documented by Janina Garcia LPN on behalf of: Lzu Flynn DO documented in this encounterSaint John's Health SystemBfiuyqnpjv49-30-3320 History of Present illness Narrative* Oneida Pena LPN - 04/18/2024 10:20 AM EDT Reason for Appointment: Patient ID: Liz King is a 59 y.o. female who presents for Post-op Visit Patient presents today for Follow up appointment to discuss results. MEDICATIONS Current Outpatient Medications Medication Instructions amLODIPine (NORVASC) 10 mg, Oral, Daily losartan (COZAAR) 50 mg, Oral, Daily ALLERGIES Allergies Allergen Reactions Bactrim [Sulfamethoxazole-Trimethoprim] Sulfamethoxazole Other Reaction(s): Hives Trimethoprim Other Reaction(s): [...] nursing note reviewed. Exam conducted with a executive chef present. Vitals: There is no height or weight on file to calculate BMI. BP: 120/70 No LMP recorded. ASSESSMENT & PLAN ICD-10-CM 1. Postoperative examination Z09 Patient presents today for post operative appointment. Discussed results with patient in regards toDx Lap that was done and went over pictures as well and explained plan of care to patient. Recommended patient have abdominal hysterectomy. Discussed bladder issues after surgery and that bladder would be tacked during abdominal hysterectomy. Patient to setup date for Abdominal hysterectomy prior to leaving office today. Documented by Oneida Pena LPN on behalf of: Luz Flynn DO documented in this encounterSaint John's Health SystemZgccqwucrt34-03-4225 Hospital Discharge instructions Patient Education 02/19/2024 15:20:01 EU - [...] S[place] Address: [facility] [employer] [address] [facility] (1) When: Unknown Comments:The stent has now been removed!You may have some irritation/flank pain due to its removal. Push thefluids to keep the urine clear.As we discussed, [...] decision at any time.Have a great day. [facility]07-08-2024 NotePatient Education Cystoscopy with Stent Removal ? Voiding after the procedure: there may be some pain, burning, urgency, frequency and blood tingedurine following the procedure. These symptoms usually resolve [...] if you have a fever over 100 degrees.[facility] 02-01-2024 Hospital Discharge instructionsAmbulatory Orders* Referral to SUPPLY CHAIN BUYER Time Frame: 02/01/24, Location: None [facility] Work Phone: Evaluation + Plan note Future Appointments Appointment Date:02/12/2024 08:00:00 AM Scheduled Provider: Location:[facility] Appointment Type:Urology CALL PAT FT Appointment Date:02/19/2024 03:15:00 PM Scheduled Provider: Location:[facility] Appointment Type:Urology FT [facility] evaluation + Plan note Future Appointments Appointment Date:09/03/2024 02:30:00 PM Scheduled Provider:Gurdeep SWEENEY MD Location[facility] App[facility]O [facility] Future Appointments Appointment Date:09/02/2025 01:45:00 PM Scheduled Provider:Gurdeep SWEENEY MD Location:[facility] Appointment Type:URO Office Visit [facility] evaluation note* Diagnosis Onset Date Resolution Status Epigastric abdominal pain acuteHTN (hypertension)acute [facility] Work Phone: Evaluation note* Diagnosis Onset Date Resolution Status HTN (hypertension) acuteUterine massacute [facility] Work Phone: Evaluation note* Diagnosis Onset Date Resolution Status HTN (hypertension) acuteNephrolithiasisacuteUterine massacute [facility] Work Phone: evaluation note* Diagnosis Pre-op examination [...] pressure in female documented in this encounter [facility] HealthcareEvaluation note* Diagnosis Postoperative examination Follow-up examination, following unspecified surgery documented in this encounter [facility] HealthcareEvaluation note* Diagnosis Postoperative follow-up Follow-up examination, following unspecified surgery S/P hysterectomy Acquired absence of both cervix and uterus documented in this encounter [facility] HealthcareEvaluation note* Diagnosis Onset Date Resolution Status Admit Date Colon cancer screening acuteJuly 2024 3:27pm [facility] Work Phone: Hospital course Narrative No data available for this section [facility] Hospital Discharge instructions No data available for this section [facility] Hospital Discharge instructionsAmbulatory Orders* Referral to Gastroenterology Location: None [facility] Work Phone: Hospital Discharge instructions Additional Instructions DISCHARGE INSTRUCTIONS FOR COLONOSCOPY WHAT TO EXPECT: - You may feel full, gassy or cramping after your procedure. In some cases, this may be from a few hours to a day. Walking may help relieve the discomfort. - If you have polyp(s) removed you may note some minor bloody discharge after your first bowel movements. - You should begin to recover from anesthesia within 1 hour of the procedure, however may feel groggy for the next 24 hours. DO's AND DON'Ts: - Call your doctor right away if you have a hard abdomen, severe pain, are passing lots of bright red blood or clots. - Call your doctor if you develop any rashes, hives or difficulty breathing. - Let your doctor know if you have not had a bowel movement by 3 days after your procedure. - If you take 81 mg aspirin for your heart it is safe to resume this medication. - If you take other blood thinner medications your doctor will instruct you when these can safely be resumed. - Do NOT drive for 24 hours. - Do NOT operate machinery such as power tools, lawn mowers, snow blowers, sewing machines, etc. for 24 hours. - Avoid alcoholic beverages and drugs for allergies, nerves, or sleep. - Do NOT stay alone. Do NOT leave your child unattended. - Do NOT make important personal or business decisions or sign any legal documents. - Eat solid foods and drink liquids in smaller amounts than usual until normal appetite returns. If you should experience an upset stomach, liquids high in sugar content (soda, Jose-Aid, non-acid juices) are recommended. - You can resume normal activities tomorrow. FOLLOW UP & RECOMMENDATIONS: -Please call the office and make a follow up appointment to see me as needed. -Notify the doctor if you have any problems. -Repeat colonoscopy in 5 years. -Follow up with PCP. -Office number [phone]. [facility] Work Phone: Progress note No data available for this section [facility] Summary Purpose Family History Relationship Condition Age at Onset Recorded Date/T clarence father Diabetes mellitus Unknown Heart diseaseUnknownNot SpecifiedDementiaUnknownFamily history of mental disorderUnknown Relationship Condition Age at Onset Recorded Date/T clarence father Diabetes mellitus Unknown Heart diseaseUnknownmotherDementiaUnknownFamily history of mental disorder Unknown Advance Directives Advance Directive Response Recorded Date/ Time Advance Directives No October 22 024 2:05pm Chief Complaint and Reason for Visit Chief Complaint BP Issues Check UpReason for VisitEpigastric abdominal pain HTN (hypertension) Chief Complaint Check Up bp med concernsReason for VisitHTN (hypertension) Uterine mass Chief Complaint bp med concerns UnknownReason for VisitHTN (hypertension) Nephrolithiasis Uterine mass Chief Complaint Admit Date Wellness February 17, 2025 3:27p m Reason for Visit Admit Date Colon cancer screening February 17, 2025 3: 27pm Chief Complaint Admit Date Wellness February 17, 2025 3:27p m Screening April 22, 2025 7:32am Reason for Visit Admit Date Colon cancer screening February 17, 2025 3: 27pm HTN (hypertension) February 17, 2025 3:27p m Wellness examination February 17, 2025 3:27 pm Additional Source Comments INFORMATION SOURCE (unrecogn ized section and content) DATE CREATED AUTHOR 06/07/2022 [facility] DATE CREATED AUTHOR AUTHOR'S ORGANIZ ATION 09/05/2024 [facility] DATE CREATED AUTHOR AUTHOR'S ORGANIZ ATION 04/26/2025 [facility] Care Teams (unrecognized sec tion and content) Team Status: Active Member Role Status Dates Ayse Preciado MD Primary Care Provider Active Team Status: Active Member Role Status Dates Ayse Preciado MD Primary Care Provider Active Start: January 25, 2024 Marsha Barnes Silvina , DOAttending ProviderActiveStart: January 25, 2024 Team Status: Inactive Member Role Status Dates Ayse Preciado MD Primary Care Provide r, Attending Provider Active Start: February 01, 2024 End: February 01, 2024 Team Status: Active Member Role Status Dates Ayse Preciado MD Primary Care Provider Active Start: April 11, 2024 Luz Flynn DOAttending ProviderActiveStart: April 11, 2024 Team Status: Inactive Member Role Status Dates Ayse Preciado MD Primary Care Provider Active Start: April 11, 2024 End: April 11karen Flynn DOAttending ProviderActiveStart: April 11, 2024 End: April 11, 2024 Team Status: Inactive Member Role Status Dates Ayse Preciado MD Primary Care Provide r, Attending Provider Active Start: October 23, 2023 End: October 23, 2023 Team Status: Inactive Member Role Status Dates Ayse Preciado MD Primary Care Provide r, Attending Provider Active Start: November 16, 2023 End: November 16, 2023Team MemberRelationshipSpecialtyStart DateEnd Date Ayse Preciado MD [address] [place] [address] PCP - GeneralFamily Medicine02/22/24Team MemberRelationshipSpecialtyStart DateEnd Date Ayse Preciado MD [address] [place] [address] PCP - GeneralFamily Medicine02/22/24Team MemberRelationshipSpecialtyStart DateEnd Date Ayse Preciado MD [address] [place] [facility] [place] [address] [facility] - [facility]/22/24Team MemberRelationshipSpecialtyStart DateEnd Date Ayse Preciado MD [address] [place] [facility] [address] [facility] - [facility] Medicine02/22/24Team MemberRelationshipSpecialtyStart DateEnd Date Ayse Preciado MD [address] [place] [facility] [address] [facility] - [facility] Medicine02/22/24Team MemberRelationshipSpecialtyStart DateEnd Date Ayse Preciado MD [address] [place] [facility] [address] [facility] - [facility] Medicine02/22/24Team MemberRelationshipSpecialtyStart DateEnd Date Ayse Preciado MD [address] [place] [facility] [address] [facility] Medicine02/22/24 Team Status: Active Member Role Status Dates Ayse Preciado MD Primary Care Provider Active Start: February 12, 2025 Ayse Preciado MDAttending ProviderActiveStart: February 12, 2025 Team Status: Inactive Member Role Status Dates Ayse Preciado MD Primary Care Provider Active Start: February 17, 2025 End: February 17, 2025Asye Preciado MDAttending ProviderActiveStart: February 17, 2025 End: February 17, 2025 Team Status: Active Member Role Status Dates Ayse Preciado MD Primary Care Provider Active Start: April 22, 2025 Marilyn Mcdonald DOAttending ProviderActiveStart: April 22, 2025 Marilyn Mcdonald , DOOther ProviderActiveStart: April 22, 2025 Team MemberRelationshipSpecialtyStart DateEnd Date Ayse Preciado MD PCP - GeneralFamily Medicine02/22/24 Goals (unrecognized section and content) Goals may be documented in a n alternate sectionGoals may be documented in an alternate section No data available for this section No data available for this sectionGoals may be documented in an alternate section No data available for this sectionGoals may be documented in an alternate sectionGoals may be documented in an alternate section Reason for Visit (unrecogniz ed section and content) ReasonCommentsPre-op VisitReasonCommentsPost-op Visit FOR RECORDS PERTAINING TO PATIENTS WHO [...] BE BASED ON THE PRIMARY CLINICAL RECORDS. [employer] provides no warranty or guarantee of the accuracy or completeness of information in this document.
== END 2025-06-20 13:04 | disposition home or self-care (01) ==
LOC: MAMMO 13:03
PROVIDERS: PCP Family Medicine; Visit Provider Family Medicine
DX: Z12.31 Encounter for screening mammogram for malignant neoplasm of breast (principal); Z80.6 Family history of leukemia
CPT/HCPCS: 77063; 77067